=== PATIENT | female | born 1955 | race Caucasian/White ===

== ENCOUNTER → 2019-02-26 14:45 | Outpatient (CLI) | payer BC, SELFPAY ==
[2019-02-04 14:40] VITALS: BMI 47.9
--- NOTE | 2019-02-26 14:51 | ECHOD_ITS ---
Reason For Study: HTN Procedure This was a 2D Doppler, Color Flow transthoracic echocardiogram. The study was technically difficult. Exam performed in department. Left Ventricle Normal LV size. Left ventricular systolic function is normal. The estimated ejection fraction is 65 %. No evidence for diastolic dysfunction. No regional wall motion abnormalities noted. Right Ventricle Normal RV size. Normal systolic function. Atria The left atrium is mildly enlarged. Normal right atrium. No doppler evidence for ASD. Mitral Valve There is no mitral annular calcification. Normal mitral valve. Trivial mitral valve insufficiency. Tricuspid Valve Normal tricuspid valve. Trivial tricuspid valve insufficiency. Right ventricular systolic pressure estimated to be 30 mmHg. Aortic Valve Trisinus/trileaflet aortic valve. Normal aortic valve. Pulmonic Valve The pulmonic valve is not well visualized. Great Vessels The aortic root is not well visualized. Pericardium/Pleural No pericardial effusion. MMode/2D Measurements & Calculations LVIDd: 4.3 cm IVSd: 1.2 cm LA dimension: 3.8 cm LVIDs: 2.5 cm LVPWd: 1.0 cm RVDd: 3.8 cm FS: 41.9 % LAV(MOD-bp): 49.6 ml LA A4 area: 18.9 cm2 RA A4 area: 11.9 cm2 LAV(MOD-bp) Indexed: 22.0 ml/m2 LAV(MOD-sp2): 43.2 ml LAV(MOD-sp4): 49.2 ml Time Measurements MV dec time: 0.27 sec Doppler Measurements & Calculations MV E max shravan: 92.9 cm/sec Lat Peak E' Shravan: 9.6 cm/sec Med Peak E' Shravan: 7.0 cm/sec MV A max shravan: 121.3 cm/sec E/E' lat: 9.7 E/E' med: 13.3 MV E/A: 0.77 MV V2 max: 125.2 cm/sec MV P1/2t max shravan: 102.1 cm/sec Ao V2 max: 153.1 cm/sec MV max P.3 mmHg MV P1/2t: 93.3 msec Ao max P.4 mmHg MV V2 mean: 61.8 cm/sec MV dec slope: 320.5 cm/sec2 MV mean P.8 mmHg MVA(P1/2t): 2.4 cm2 MV V2 VTI: 43.3 cm LV V1 max: 137.9 cm/sec PA V2 max: 131.9 cm/sec TR max shravan: 259.5 cm/sec LV V1 max P.6 mmHg TR max P.9 mmHg Interpretation Summary The study was technically difficult. Left ventricular systolic function is normal. The estimated ejection fraction is 65 %. The left atrium is mildly enlarged. Trivial mitral valve insufficiency. Trivial tricuspid valve insufficiency. Right ventricular systolic pressure estimated to be 30 mmHg. No evidence for diastolic dysfunction. Ordering Physician: Amarjit Olivera Referring Physician: Amarjit Olivera Performed By: Freddy Salamanca RCS
== END ==
PROVIDERS: Referring Provider Internal Medicine Cardiovascular Disease; Visit Provider Internal Medicine Cardiovascular Disease
DX: I10 Essential (primary) hypertension (principal)
CPT/HCPCS: 93306

== ENCOUNTER → 2019-04-05 08:03 | Outpatient (CLI) | payer BC, SELFPAY ==
[2019-02-04 14:40] VITALS: BMI 47.9
[2019-04-05 09:53] LABS: AST(SGOT) 21 U/L (15-37); Alanine Aminotransfer ALT/SGPT 29 U/L (13-56); Albumin, Serum 3.4 g/dL (3.2-5.0); Alkaline Phosphatase 105 U/L (45-117); Anion Gap 4 (5-15); BUN 30 mg/dL (7-18); BUN/Creat Ratio 22.1 RATIO (10-20); Bilirubin, Direct 0.13 mg/dL (0.00-0.30); Calcium,Total 9.1 mg/dL (8.5-10.1); Chloride 110 mmol/L (98-107); Cholesterol 190 mg/dL (200); Creatinine, Serum 1.36 mg/dL (0.55-1.02); EST Glomerular Filtration Rate 42 mL/min (>60); Est Glom Filt Rate - Afr Amer 50 mL/min (>60); Globulin 4.1 g/dL (2.2-4.2); Glucose 108 mg/dL (74-106); High Density Lipoprotein 44 mg/dL; Protein, Total 7.5 g/dL (6.4-8.2); Sodium Level 143 mmol/L (136-145); T4 Total, Thyroxin 10.2 ug/dL (4.8-13.9); Thyroid Stim Hormone (TSH) 2.44 uIU/mL (0.358-3.74); Triglycerides 306 mg/dL; Very Low Density Lipoprotein 61 mg/dL (5-40)
== END ==
PROVIDERS: PCP Internal Medicine; Referring Provider Internal Medicine Cardiovascular Disease; Visit Provider Internal Medicine Cardiovascular Disease
DX: I10 Essential (primary) hypertension (principal); E78.00 Pure hypercholesterolemia, unspecified
CPT/HCPCS: 36415; 80048; 80061; 80076; 84436; 84443

== ENCOUNTER 2019-05-17 08:17 | Day surgery (SDC) | payer BC, SELFPAY ==
[2019-04-12 15:21] VITALS: BMI 47.9
[2019-05-06 13:58] VITALS: BMI 47.9
--- NOTE | 2019-05-17 08:37 | H&P.OPEN ---
History of Present Illness Date of Admission: 05/17/19 The patient is a 64 year old F presents for screening colonoscopy. Patient's never had a previous colonoscopy. Patient denies any family history of colon cancer. Patient denies any chronic abdominal pain/nausea/vomiting/reflux. Patient has bowel movements daily will occasionally have bleeding if she has an inflamed hemorrhoid. Past Medical/Surgical History - Planned Operation Planned Operative Procedure/s: cscope open access Date of Operative Procedure: 05/17/19 Permit Signed: No S.O.S: No Is This Patient Having a Total Joint: No - Previous Hospitalizations/Surgeries HX Hospitalizations: Yes - pneumonia HX of Surgeries: uterine ablation. gallbladder. tubal ligation Any Problems With Anesthesia: No You/Your Family Experience Fever (Hyperthermia) With Anes: No Cholinesterase deficiency: No - Cardiovascular Hx Chest Pain within Last 2 months: No Hx of Irregular Heartbeat and/or Afib: No - follows with whg/last visit 04/2019 Hx Heart Attack: No Hx Congestive Heart Failure: No Hx Rheumatic Fever: No Hx Hypertension: Yes - controlled with med Hx Internal Defibrillator: No Hx Pacemaker: No Hx Cardiac Catheterization: No Hx Cardiac Surgery/Stents/Etc.: No Hx Stress Test: No - echo 2019 HX Edema: Yes - lower legs Hx Pain in Legs when Walking/Leg Cramps: Yes - Respiratory Chronic Cough: No HX of Shortness of Breath: Yes - slightly sob with 2 flights of stairs Hoarseness: No Hx Chronic Obstructive Pulmonary Disease (COPD): No Hx Asthma: Yes - prn inhaler Hx Emphysema: No Hx Sleep Apnea: No Hx Oxygen Use at Home: No Hx Respiratory Tract Infection/Cold (presently): No Do You Snore Loudly (louder than talking or can be heard): Yes Do You Often Feel Tired/ Fatigued/ Sleepy Dring Daytime?: No Has Anyone Observed You Stop Breathing During Sleep?: No Result (for STOP score): Positive Hx Smoking: No Smoking Status: Never smoker - Gastrointestinal Hx Gastroesophageal Reflux: No - occ heartburn prn tums Hx Gastrointestinal Disorders: No Hx Gastrointestinal Bleed: No Hx Ulcer: No Hx Hiatal Hernia: No Difficulty Chewing/Swallowing: No Recent Onset of Swallowing Problems: No Special diet followed at home: No Hx Unplanned Weight Loss of 20#: No HX Unplanned Weight Gain of 20#: No - Neurological Hx Seizures: No HX Syncope/Blackout Spells/Unconsciousness: No Hx CVA/Stroke: No Hx Transient Ischemic Attacks (TIA): No Hx Multiple Sclerosis: No Hx Parkinson's Disease: No Hx Head/Neck Injury: No Hx Headaches: No Hx Back Injury/Pain: No Recent Onset of Speech Difficulty: No Restless Legs: No Does patient have nerve stimulator: No Patient instructed to have device shut off: No Rep notified?: No - Blood Disorder Hx Leukemia: No Bleeding Tendencies: No Hx Deep Vein Thrombosis: No Hx High Cholesterol: Yes - on med Blood Transmitted Disease: No Hx Hepatitis: No Hx Cirrhosis: No Hx Anemia: Yes - in the past Hx Blood Disorders: No - Reproduction : No Is Patient Lactating: No Hx Hysterectomy: No Hx Tubal Ligation: Yes Are You Post Menopause: Yes - Genitourinary Hx Renal Disease: No - Musculoskeletal Hx Arthritis: Yes Hx Rheumatoid Arthritis: No Hx Gout: No Recent Onset of an Orthopedic Problem: No - Endocrine Hx Diabetes: No Thyroid Disease: No Hx Steroid Therapy: No - Psycho/Social Hx Substance Use: No Hx Alcohol Use: No Hx Anxiety: No Hx Depression: No Mental Illness: No Hx Dementia: No - Miscellaneous Hx Cancer: No Recent Exposure to Contagious Disease: No Active MRSA: No Hx of C-Diff: No Any Loose Teeth: No Allergies Sulfa (Sulfonamide Antibiotics) Allergy (Unknown, Verified 05/17/19 08:40) Unknown - Discharge Is Pt Admitted From a Long Term, or a [place] [facility]: No Who Could Help: family After D/C, Where Do you Plan to Go: Return Home - From the PAT History Number of Risk Factors: 3 - Physical Exam Vitals/I&O's: Body Mass Index (BMI) 47.9 General: Alert, Oriented x3, Cooperative, No apparent distress HEENT: Atraumatic Lungs: Normal air movement Cardiovascular: Regular rate Abdomen: Soft, Non Tender, Non-Distended Extremities: No clubbing, No cyanosis Neurological: Cranial nerves II-XII grossly intact Psych/Mental Status: Normal Affect Assessment/Plan 64-year-old female for screening for colon cancer Surgery Risks - Colonoscopy I discussed with the patient the risks of the procedure: Yes Risks Include but are not Limited To: Risks include but are not limited to: Bleeding, perforation requiring further surgery, inability to complete colonoscopy requiring barium enema. Patient and her had no further questions this time.
[2019-05-17 08:40] VITALS: BP 128/67; PULSE 53; RESP 16; TEMP 36.4; O2SAT 99; BMI 47.6
[2019-05-17] MEDS: Lactated Ringers 1,000 ML 100 ML IV (08:55)
[2019-05-17 10:00] VITALS: BP 102/51; BP 128/67; PULSE 53; RESP 16; TEMP 36.2; O2SAT 94
--- NOTE | 2019-05-17 10:02 | OP.COLON_ITS ---
Patient Name: Anh Ewing Procedure Date: 05/17/2019 9:32 AM Date of : 1955 Age: 64 Procedure: Colonoscopy Indications: Screening for colorectal malignant neoplasm Providers: Xochitl Otto MD Referring MD: Madan Velásquez MD Medicines: Monitored Anesthesia Care Patient Profile: This is a 64 year old female. Last Colonoscopy: none. The patient's first colonoscopy is today. Complications: No immediate complications. Procedure: Pre-Anesthesia Assessment: - Prior to the procedure, a History and Physical was performed, and patient medications and allergies were reviewed. The patient's tolerance of previous anesthesia was also reviewed. The risks and benefits of the procedure and the sedation options and risks were discussed with the patient. All questions were answered, and informed consent was obtained. Prior Anticoagulants: The patient has taken no previous anticoagulant or antiplatelet agents. ASA Grade Assessment: III - A patient with severe systemic disease. After reviewing the risks and benefits, the patient was deemed in satisfactory condition to undergo the procedure. After I obtained informed consent, the scope was passed under direct vision. Throughout the procedure, the patient's blood pressure, pulse, and oxygen saturations were monitored continuously. The colonoscope was introduced through the anus and advanced to the cecum, identified by the appendiceal orifice, ileocecal valve and palpation. The colonoscopy was performed without difficulty. The patient tolerated the procedure well. The quality of the bowel preparation was good. Scope In: 9:43:19 AM Scope Withdrawal Time 0 hours 9 minutes 15 seconds Scope Out: 9:56:57 AM Total Procedure Duration Time 0 hours 13 minutes 38 seconds Findings: Hemorrhoids were found on perianal exam. External and internal hemorrhoids were found. The hemorrhoids were Grade I (internal hemorrhoids that do not prolapse). Many small and large-mouthed diverticula were found in the sigmoid colon. The exam was otherwise without abnormality. Impression: - Hemorrhoids found on perianal exam. - External and internal hemorrhoids. - Diverticulosis in the sigmoid colon. - The examination was otherwise normal. - No specimens collected. Recommendation: - Discharge patient to home. - High fiber diet. - Continue present medications. - Repeat colonoscopy in 10 years for screening purposes. Procedure Code(s): --- Professional --- G0121, PT, Colorectal cancer screening; colonoscopy on individual not meeting criteria for high risk Diagnosis Code(s): --- Professional --- Z12.11, Encounter for screening for malignant neoplasm of colon K64.0, First degree hemorrhoids K57.30, Diverticulosis of large intestine without perforation or abscess without bleeding CPT copyright 2017 [employer]. All rights reserved. The codes documented in this report are preliminary and upon data conversion operator review may be revised to meet current compliance requirements. MD Xochitl Ronquillo MD 05/17/2019 10:01:42 AM This report has been signed electronically. Number of Addenda: 0 Note Initiated On: 05/17/2019 9:32 AM
--- NOTE | 2019-05-17 10:02 | OP.CCLET_ITS ---
05/17/2019 Madan Velásquez MD [address] [place] [address] [place] [address] Re : Colonoscopy procedure for Anh Gildardo Dear Dr. Velásquez This procedure was performed on Friday, May 17, 2019. My impressions and recommendations are as follows: Impressions : - Hemorrhoids found on perianal exam. - External and internal hemorrhoids. - Diverticulosis in the sigmoid colon. - The examination was otherwise normal. - No specimens collected. Recommendations : - Discharge patient to home. - High fiber diet. - Continue present medications. - Repeat colonoscopy in 10 years for screening purposes. My findings are described in the full procedure note, which is enclosed. If I can be of further assistance, please feel free to contact me at Doctor phone number(s): , Work: . Sincerely, MD Xochitl Ronquillo MD 05/17/2019 10:01:42 AM This report has been signed electronically.
[2019-05-17 10:05] VITALS: BP 114/57; BP 128/67; PULSE 51; RESP 16; O2SAT 100
[2019-05-17 10:10] VITALS: BP 127/67; BP 128/67; PULSE 50; RESP 16; O2SAT 100
[2019-05-17 10:15] VITALS: BP 128/67; BP 130/78; PULSE 53; RESP 16; TEMP 36.2; O2SAT 99
[2019-05-17 10:34] VITALS: BP 128/67
== END 2019-05-17 10:44 | disposition home or self-care (01) ==
LOC: EN 08:18 → AC 08:19
PROVIDERS: PCP Internal Medicine; Referring Provider Internal Medicine; Visit Provider Surgery
PROC: 0DJD8ZZ Inspection of Lower Intestinal Tract, Via Natural or Artificial Opening Endoscopic (ICD-10-PCS; CPT 45378; principal; 2019-05-17 09:25)
DX: Z12.11 Encounter for screening for malignant neoplasm of colon (principal); K57.30 Diverticulosis of large intestine without perforation or abscess without bleeding; K64.0 First degree hemorrhoids; K64.4 Residual hemorrhoidal skin tags; I10 Essential (primary) hypertension; E78.00 Pure hypercholesterolemia, unspecified; J45.909 Unspecified asthma, uncomplicated; Z78.0 Asymptomatic menopausal state; Z88.2 Allergy status to sulfonamides; Z79.899 Other long term (current) drug therapy
CPT/HCPCS: 45378; J7120

== ENCOUNTER → 2019-06-16 10:51 | Outpatient (CLI) | payer BC, SELFPAY ==
[2019-06-04 09:36] VITALS: BMI 47.6
--- NOTE | 2019-06-16 10:53 | RAD_ITS ---
STUDY: X-RAY - RIGHT ANKLE REASON FOR EXAM: Female, 64 years old. ANKLE PAIN AND SWELLING, NO INJURY TECHNIQUE: 3 view(s) of the ankle. COMPARISON: None. FINDINGS: Normal visualized distal tibia and fibula. Questionable tiny avulsion at the tip of the lateral malleolus. Findings suggestive of an old avulsion of the medial malleolus. Normal tibiotalar articulation and ankle mortise. Calcaneal spurs. The visualized subtalar, talonavicular, calcaneocuboid and tarsal articulations are normal. Diffuse soft tissue swelling. RAD/Ankle min 3 Views IMPRESSION: Diffuse soft tissue swelling. Questionable tiny avulsion fracture of the lateral malleolus. Old avulsion of the medial malleolus. Electronically Signed: Bebo Rivas, at 14:11 EDT , Service support ,
== END ==
PROVIDERS: PCP Internal Medicine; Referring Provider Nurse Practitioner Family; Visit Provider Nurse Practitioner Family
DX: M25.571 Pain in right ankle and joints of right foot (principal)
CPT/HCPCS: 73610

== ENCOUNTER → 2019-08-30 07:23 | Outpatient (CLI) | payer BC, SELFPAY ==
[2019-07-12 08:34] VITALS: BMI 48.9
[2019-08-30 07:53] LABS: Anion Gap 5 (5-15); BUN 21 mg/dL (7-18); BUN/Creat Ratio 19.6 RATIO (10-20); Calcium,Total 9.2 mg/dL (8.5-10.1); Chloride 111 mmol/L (98-107); Creatinine, Serum 1.07 mg/dL (0.55-1.02); EST Glomerular Filtration Rate 55 mL/min (>60); Est Glom Filt Rate - Afr Amer 66 mL/min (>60); Glucose 118 mg/dL (74-106); Potassium 4.3 mmol/L (3.5-5.1); Sodium Level 141 mmol/L (136-145)
[2019-08-30 07:59] LABS: Hemoglobin A1c 5.8 % (3.8-5.6)
[2019-08-30 08:56] LABS: Vitamin D,25 Hydroxy 18.8 ng/mL
== END ==
PROVIDERS: PCP Internal Medicine; Referring Provider Podiatrist; Visit Provider Podiatrist
DX: I10 Essential (primary) hypertension (principal); R73.03 Prediabetes; E55.9 Vitamin D deficiency, unspecified
CPT/HCPCS: 36415; 80048; 82306; 83036

== ENCOUNTER → 2019-11-01 | Outpatient (CLI) | payer BC, SELFPAY ==
[2019-11-01 10:08] VITALS: BMI 48.9
[2019-11-05 13:57] LABS: HPV APTIMA, High Risk Negative (Negative)
== END | disposition home or self-care (01) ==
LOC: LABSPEC 14:10
PROVIDERS: PCP Internal Medicine; Referring Provider Obstetrics & Gynecology; Visit Provider Obstetrics & Gynecology
DX: Z12.4 Encounter for screening for malignant neoplasm of cervix (principal)
CPT/HCPCS: 87624; 88175; G0145

== ENCOUNTER → 2019-12-22 11:49 | Outpatient (CLI) | payer BC, SELFPAY ==
[2019-07-12 08:34] VITALS: BMI 48.9
[2019-12-20 08:21] VITALS: BMI 48.9
--- NOTE | 2019-12-22 11:53 | MRI_ITS ---
STUDY: MRI RIGHT MIDFOOT REASON FOR EXAM: Female, 64 years old. 4th metatarsal fx, cuboid TECHNIQUE: Standardized fat and water weighted pulse sequences were obtained in all 3 orthogonal planes. COMPARISON: None. FINDINGS: Normal talonavicular articulation. Normal calcaneocuboid articulation. Normal navicular-cuneiform articulations. Normal intercuneiform articulations. Normal first tarsometatarsal articulation. Normal Lisfranc ligament. Moderate second tarsometatarsal joint arthrosis with erosions. Normal cuboid fourth and cuboid fifth tarsometatarsal articulation. Nondisplaced oblique fracture of the base of the fourth metatarsal bone extending into the tarsometatarsal joint with surrounding severe contusion into the proximal shaft. Microtrabecular infraction of the base of the third metatarsal bone with surrounding severe contusion. Normal tibialis anterior tendon. Normal extensor hallucis longus tendon. Normal extensor digitorum longus tendons. Normal peroneus longus tendon and distal insertion. Normal peroneus brevis tendon and distal insertion. Normal intrinsic muscles of the mid and forefoot region. Normal extensor digitorum brevis muscle. There is diffuse edema of the subcutaneous adipose space of the dorsal midfoot region. MRI/Lower Ext/No Jt/w/o IMPRESSION: Nondisplaced fracture the base of the fourth metatarsal bone and microtrabecular infraction of the base of the third metatarsal bone. Electronically Signed: Todd Herman MD at 17:04 EDT Tel , Service support ,
--- NOTE | 2019-12-22 11:53 | MRI_ITS ---
STUDY: MRI RIGHT ANKLE WITHOUT CONTRAST REASON FOR EXAM: Female, 64 years old. ankle ligament injury TECHNIQUE: Standardized fat and water weighted pulse sequences were obtained in all 3 orthogonal planes. COMPARISON: X-ray dated 06/16/2019. FINDINGS: Peroneus brevis split tear (axial images 19 through 21 series 9). Mild peroneus longus/brevis tenosynovitis. Mild posterior tibialis and flexor tenosynovitis with fluid at the master knot of [place] (axial image 25 series 9). Normal extensor tendons. Mild soft tissue swelling at the ankle. No solid, cystic or lipomatous soft tissue lesions. Small volume tibiotalar/subtalar joint effusion. Mild tibiotalar joint arthrosis. Mild subtalar joint arthrosis. Normal calcaneocuboid joint. Mild talonavicular arthrosis. Mild navicular cuneiform joint arthrosis. Moderate tarsal metatarsal joint arthrosis. Scattered areas of reactive bone marrow edema/contusion involving the distal fibula, distal tibia, talus, calcaneus, cuboid, medial cuneiform and metatarsal bases. No acute fracture line. No acute dislocation. Os trigonum. Plantar spur. Plantar fascial thickening. Minimal Achilles tendinosis. Chronic syndesmotic ligament thickening. Chronic anterior and posterior talofibular ligament thickening. Normal sinus Tarsi/subtalar ligaments. Chronic deltoid ligament sprain. MRI/Lower Ext Joint Only (Routine) IMPRESSION: Peroneus brevis split tear with peroneus longus/brevis tenosynovitis Mild PTT and flexor tenosynovitis Multiregional bone contusion/edema (consider neuropathy) Chronic syndesmotic, lateral ligament and deltoid ligament sprains Plantar spur with chronic plantar fascial thickening and minimal Achilles tendinosis Moderate osteoarthritic features Soft tissue swelling with small joint effusion Electronically Signed: Giovany Thompson DO at 14:10 EDT Tel , Service support ,
== END ==
PROVIDERS: PCP Internal Medicine; Referring Provider Podiatrist; Visit Provider Podiatrist
DX: M84.374A Stress fracture, right foot, initial encounter for fracture (principal); S82.891A Other fracture of right lower leg, initial encounter for closed fracture; X58.XXXA Exposure to other specified factors, initial encounter; Y93.9 Activity, unspecified; Y92.9 Unspecified place or not applicable; Y99.9 Unspecified external cause status
CPT/HCPCS: 73718; 73721

== ENCOUNTER 2019-12-28 21:38 | Emergency (ER) | payer BC, SELFPAY ==
[2019-12-20 08:21] VITALS: BMI 48.9
[2019-12-28 21:39] VITALS: BP 199/109; PULSE 54; RESP 16; TEMP 35.7; O2SAT 99; BMI 48.0
[2019-12-28] MEDS: oxyCODONE 5 MG Tablet PO (22:18)
--- NOTE | 2019-12-28 22:28 | RAD_ITS ---
STUDY: X-RAY - LEFT KNEE REASON FOR EXAM: Female, 64 years old. PAIN MEDIAL SIDE OF KNEE AT LEVEL OF KNEE JOINT. TOO PAINFUL TO STAND/WALK. NO KNOWN INJURY TECHNIQUE: 4 view(s) of the knee. COMPARISON: None. FINDINGS: Normal visualized distal femur. Normal visualized proximal tibia and fibula. Normal proximal tibiofibular articulation. There is no demonstrated fracture. There is moderate degenerative arthrosis of the medial femorotibial compartment with moderate joint space narrowing. There is mild degenerative arthrosis of the lateral femorotibial compartment. There is moderate degenerative arthrosis of the patellofemoral articulation. The soft tissue structures are unremarkable. RAD/Knee 4 or More Views IMPRESSION: Degenerative arthrosis. Electronically Signed: Edwin Chamberlain MD at 22:56 EDT , Service support ,
--- NOTE | 2019-12-28 23:32 | ED.VIS.GEN ---
History of Present Illness Chief Complaint: Lower Extremity Injury Informant: Patient Narrative: 64-year-old female with past medical history of hypertension and CKD presents with concern for left knee pain. States it developed yesterday evening. States it is aching in nature. No trauma. States it is worse with movement. Denies any numbness or tingling. Past Medical History - Allergies and Home Meds Allergies/Adverse Reactions: Allergies Sulfa (Sulfonamide Antibiotics) Allergy (Unknown, Verified 12/28/19 21:43) Unknown Primary Care Physician: Madan Velásquez MD [Primary Care Provider] - Prior records reviewed: Yes Past Medical History: - - HTN and CKD Lives: Spouse/ Significant Other Smoking Status: Never smoker Alcohol: None Drugs: None Review of Systems General: Denies: Chills, Fever, Sweats Eyes: Denies: Visual changes - bilaterally, Diplopia ENT: Denies: Rhinorrhea, Sore throat Cardiovascular: Denies: Chest pain, Palpitations Respiratory: Denies: Dyspnea, Cough, Dyspnea on exertion Gastrointestinal: Denies: Abdominal pain, Nausea, Vomiting, Diarrhea, Melena, Hematochezia Genitourinary: Denies: Dysuria, Hematuria, Frequency Musculoskeletal: Reports: Arthralgias. Denies: Back pain, Extremity Pain Skin: Denies: Rash, Wounds Neurological: Denies: Headache, Weakness, Numbness Physical Exam Vital Signs/Narrative: Vital Signs Temp Pulse Resp BP Pulse Ox 12/28/19 21:39 96.3 F L 54 L 16 199/109 H 99 Inital Vital Signs reviewed: Yes General: Well nourished, Well developed, No Acute Distress Head: Normocephalic, Atraumatic Eyes: Perrl, EOMI ENT: Moist mucous membranes, No rhinorrhea Neck: Supple, Nontender Cardiovascular: Regular rate, Regular rhythm, No murmurs Respiratory: No distress, CTA bilaterally, Chest nontender Abdomen: Soft, Nontender, Nondistended, Normal bowel sounds Back: Nontender, Normal Inspection Extremities: No edema, - - Tenderness to palpation along the medial joint line of the left knee. No tenderness in the calf. Strong and palpable pulses. Sensation intact. Skin: Normal color, No rash Neurological: Alert, Oriented x3, Cranial nerves II-XII grossly intact, Normal Strength, Normal Sensation Psychological: Normal affect, Normal Mood Diagnostic/Tx/Re-eval Clinical Impression(s) from Imaging Studies Knee X-Ray 12/28/19 22:28 IMPRESSION: Degenerative arthrosis. Electronically Signed: Edwin Chamberlain MD at 22:56 EDT , Service support , - Medical Decision Making Appears well nontoxic. Vital signs within normal limits. X-ray shows significant arthritis. Scottie wrap will be placed. Patient was given single oxycodone. Will be advised on rest, ice, compression, elevation. Advised on Tylenol. Will be given orthopedic follow-up. Advised on weight reduction and physical therapy. Asked to return for new or worsening symptoms. Discharged home in stable condition. 1. Left knee pain 2. Left knee arthritis ED Disposition - Plan for ED Patient: Disposition: Home or Assisted Living Instructions: ED Knee Pain [facility] Referrals: Madan Velásquez MD [Primary Care Provider] - 2 Days Brian Dickerson DO [STAFF PHYSICIAN] - 5-7 Days
[2019-12-29] VITALS: RESP 16
== END 2019-12-29 00:11 | disposition home or self-care (01) ==
PROVIDERS: Emergency Provider Emergency Medicine; PCP Internal Medicine
DX: M17.12 Unilateral primary osteoarthritis, left knee (principal); I12.9 Hypertensive chronic kidney disease with stage 1 through stage 4 chronic kidney disease, or unspecified chronic kidney disease; N18.9 Chronic kidney disease, unspecified; Z79.899 Other long term (current) drug therapy
CPT/HCPCS: 73564; 99281

== ENCOUNTER → 2020-01-25 17:02 | Outpatient (CLI) | payer MEDICARE, BC, SELFPAY ==
[2020-01-03 14:29] VITALS: BMI 48.7
[2020-01-25 08:29] LABS: ALB/GLOB Ratio 0.9 RATIO (0.9-2.4); AST(SGOT) 19 U/L (15-37); Alanine Aminotransfer ALT/SGPT 24 U/L (13-56); Albumin, Serum 3.5 g/dL (3.2-5.0); Alkaline Phosphatase 102 U/L (45-117); Anion Gap 7 (5-15); BUN 29 mg/dL (7-18); BUN/Creat Ratio 23.2 RATIO (10-20); Calcium,Total 9.1 mg/dL (8.5-10.1); Chloride 109 mmol/L (98-107); Creatinine, Serum 1.25 mg/dL (0.55-1.02); EST Glomerular Filtration Rate 46 mL/min (>60); Est Glom Filt Rate - Afr Amer 55 mL/min (>60); Globulin 3.9 g/dL (2.2-4.2); Glucose 104 mg/dL (74-106); Potassium 4.2 mmol/L (3.5-5.1); Protein, Total 7.4 g/dL (6.4-8.2); Sodium Level 141 mmol/L (136-145); Vitamin D,25 Hydroxy 33.8 ng/mL
[2020-01-25 08:45] LABS: Absolute Lymphocyte Count 3.52 X10^3/uL (0.83-4.51); Absolute Neutrophil Count 2.9 X10^3/uL (2.0-7.7); Basophil# 0.04 X10^3/uL; Basophil% 0.6 % (0-1); Eosinophil# 0.09 X10^3/uL; Eosinophils% 1.3 % (0-5); Hematocrit 39.7 % (37-47); Hemoglobin 12.6 g/dL (12.0-15.0); Lymphocyte # 3.52 X10^3/ul (4.0); Lymphocyte % 49.7 % (19-41); Mean Corp Hgb Conc 31.7 g/dL (32-36); Mean Corpuscular Hgb 28.9 pg (27.0-32.0); Mean Corpuscular Volume 91.1 fL (81-99); Mean Platelet Vol. 9.8 fl (6.2-12.0); Monocyte# 0.52 X10^3/uL; Monocyte% 7.3 % (0-10); NRBC Flagged by Analyzer 0 % (0-5); Neutrophil # 2.88 X10^3/uL (2.7-7.7); Neutrophil % 40.7 % (47-70); Platelet Count 235 K/mm3 (150-450); RBC Distribution Width CV 13.9 % (11.6-14.6); RBC Distribution Width SD 46.6 fl (35.1-43.9); Red Blood Count 4.36 M/mm3 (4.2-5.4); White Blood Count 7.1 K/mm3 (4.4-11.0)
--- NOTE | 2020-01-25 17:08 | MRI_ITS ---
STUDY: MRI LEFT MIDFOOT REASON FOR EXAM: Medial left foot pain, osteoarthritis, evaluate for third metatarsal stress fracture. TECHNIQUE: Standardized fat and water weighted pulse sequences were obtained in all 3 orthogonal planes. COMPARISON: None. FINDINGS: There is tibiotalar arthrosis with anterior osteophytes, chondral thinning of the visualized anterior aspect of the articulation, and subchondral bone edema (inversion recovery sagittal images 9-16), with small osteochondral lesions of the visualized talar dome (T1 sagittal images 10, 16). Normal talonavicular articulation. There is mild arthrosis of the calcaneocuboid articulation with mild chondral thinning and mild subchondral bone edema/cystic change (inversion recovery sagittal images 13-16). Normal navicular-cuneiform articulations. Normal intercuneiform articulations. Normal first tarsometatarsal articulation. Normal Lisfranc ligament. There is arthrosis of the second and third tarsometatarsal articulations with chondral thinning and subchondral cystic change (inversion recovery sagittal images 13-17). Normal cuboid fourth and cuboid fifth tarsometatarsal articulation. There is no stress fracture of the metatarsals. There is arthrosis of the first metatarsophalangeal joint with marginal osteophytes and chondral thinning (T2 series 6 image 13). There is arthrosis of the first metatarsal-sesamoids articulations with marginal osteophytes, chondral thinning and subchondral bone edema/cystic change (inversion recovery sagittal images 5-7). Normal tibialis anterior tendon. Normal extensor hallucis longus tendon. Normal extensor digitorum longus tendons. Normal intrinsic muscles of the mid and forefoot region. Normal extensor digitorum brevis muscle. There is edema in the dorsal subcutis adipose space of the ankle and midfoot, and dorsal to the first metatarsophalangeal articulation. MRI/Lower Ext/No Jt/w/o IMPRESSION: Arthrosis of the tibiotalar, calcaneocuboid, second and third tarsometatarsal articulations, first metatarsophalangeal joint and first metatarsal-sesamoids articulations. No demonstrated third metatarsal stress fracture. Electronically Signed: Oskar Green MD at 8:04 EST Tel , Service support ,
== END ==
PROVIDERS: PCP Internal Medicine; Referring Provider Podiatrist; Visit Provider Podiatrist
DX: M84.342A Stress fracture, left hand, initial encounter for fracture (principal); E55.9 Vitamin D deficiency, unspecified
CPT/HCPCS: 36415; 73718; 80053; 82306; 85025

== ENCOUNTER 2020-02-21 15:30 | Outpatient (RCR) | payer BC, MEDICARE, SELFPAY ==
[2020-01-03 14:29] VITALS: BMI 48.7
--- NOTE | 2020-01-11 14:52 | HP.PTEVAL_ITS ---
Patient's Visit Information CARISSA FERNÁNDEZ is a 64 year old F referred to Physical Therapy by Dr. Brian Dickerson DO with a diagnosis of OA L KNEE. Date of Evaluation: 01/11/20 Physical Therapist: ALEXANDER KabaT, OCS, CSCS - Visit Plan Frequency: 2-3x /Week Duration: 4-6 Weeks Plan: 2-3x/week x 10 visits for water therapy to work on: quad and HS stretch B LE. ankles and knee ROM. LE strength, core adn UE strength ex to be taught for I when appropriate. - Subjective Don't walk well. Not steady adn my left knee hurts. 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 R foot swelled when she got home and got painful. Doctor prescribed tylenol and ice due to covid and could not walk 10 steps. Had x rays and had stress fracture in R foot adn torn tendon. Went to foot doctor who did MRI and ended up in boot cast which she work June through August. Still hurt in August. L foot hurts to at times. Has O in both feet at ankle. A month ago woke up with L knee pain. Had x ray at ER and has OA, sent to [facility]. Gave injection in knee which helped her be able to walk the halls in this office as she could not have done that 3 weeks ago. Will have MRI on R foot. No falls, uses cane much of time since injection. It was really hard to walk before injection due to knee pain. No neuropathy, no DM. No spinning dizzyness. Up at night sometimes with foot pain. Soemtimes they feel hot. 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 Commuting effort is a problem. [place]. Enjoys travelling adn doesn't feel like she can do that effectively. [place]. Basic ADLs: getting done now but challenging prior to injection. Has steps but can avoid them and does. - Pain L knee Pain Intensity (Out of 10): 1 Pain Intensity Range: 0, 10 Comment: stiff and uncomfy today B feet Pain Intensity (Out of 10): 2 Pain Intensity Range: 0, 4 - Objective 200 foot wak back to therapy with cane leaves SOB and tired but safe. Transferred chair I. Antalgic L with and without cane. L knee AROM 0-105 and pain end extension and flexion, R knee 0-118. Ankle aROM WFL but DF limited to 0 degrees B. B LE swollen and avoids push off at times on gait. reflexes 1/3 patella and achilles. Seensation LE WNL to gross light touch. UE AROM WFL and strength 4-/5. LE strength hip abd ext 3+, flexion 3+, knee ext 3 on L and 4 on R, knee flexion 4- B. ankles strength 4 in all directions without increased discomfort. - Balance Scores Functional Gait Assessment Score: 23 % Disability: 23.3400 - Goals Goal 1:: Pain diminished by 75% to 1/10 at worst ad manageable Goal Time Frame: 4-6 Weeks Goal 2:: I approp Pool ex to limit future problems Goal Time Frame: 4-6 Weeks Goal 3:: LEFS score 50/80 to improve mobility. Goal Time Frame: 4-6 Weeks - Rehabilitation Potential Physical Therapy Diagnosis: OA L knee Rehabilitation Potential: Good - Anticipated Interventions Patient/Client Instruction: Educate patient on: Condition, Plan of Care For the Purpose of:: To decrease pain, To increase ROM, To improve muscle performance and motor function, To increase tolerance to activity /condition/position Therapeutic Exercise to Include: Strength training, Flexibilty training, Gait and locomotor training, In an aquatic setting, Passive ROM, Active ROM For the Purpose of:: To decrease pain, To increase ROM, To improve muscle performance and motor function, To improve ability of physical actions for home/community/work/leisure, To improve gait and locomotor functions Thank you for the opportunity to evaluate your patient. For Medicare and Medicare HMO plans, please review the plan of care and approve it. It will need to be FAXED BACK to us at [phone] for Medicare purposes. For Medicare only, by signing this I certify the plan of care. Please let me know if there are questions or concerns regarding this plan of care. Physician Signature: Date:
--- NOTE | 2020-02-21 16:01 | HP.PTDCSUM_ITS ---
It has been my pleasure to treat CARISSA FERNÁNDEZ referred by Dr. Brian Dickerson DO, with the diagnosis of OA L KNEE for a total of 13 visit(s). Discharge Date: 02/21/20 Please see the following information for a summary of their discharge status. Subjective: A lot better. No longer need cane. I have done pool exercises regularly. Had injection just prior to eval. Knee not hurting much. Ankes still hurt and had an MRI, has torn tendon in R ankle that does not hurt. L still has tightness and OA. Has been told that she will always have some pain over there. No plans to f/u with knee Dr. Vargas. No f/u with foot doctor unless pain increases. Sleeping well. Basic ADLs are going well. Does stairs at home to laptop well. Activities are all getting done at home. 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 Uses cane in [place] for funerals. Does home exercises given to her by pool therapist to stretch LE and gently strengthen. [facility] to [facility] [employer] and continue in [facility] aerobics [facility]. Will call [facility] to find this out. No knee pain over weekend but might catch every now and then, worse in am is more stiff. L knee Pain Intensity (Out of 10): 0 B feet Pain Intensity (Out of 10): 1 % Improvement: 75 Objective/Function: Walks withotu antalgia today. steps reciprocally but needs UE pull, can do this ascending without pain but descending is weak. 0-118 AROM L knee. Ankles stiff in PF L vs R. Goal 1:: Pain diminished by 75% to 1/10 at worst ad manageable Goal Progress: Goal Met Goal 2:: I approp Pool ex to limit future problems Goal Progress: Goal Met Goal 3:: LEFS score 50/80 to improve mobility. Goal Progress: Progressing Plan: d/c to home ex adn community pool If there are questions or concerns regarding this patient's physical therapy, please feel free to call me at [phone]. Thank you for the referral of this patient. Sincerely, Giovany Martínez, DPT, OCS, CSCS
== END 2020-02-21 19:00 | disposition home or self-care (01) ==
LOC: PT 15:30
PROVIDERS: PCP Internal Medicine; Referring Provider Orthopaedic Surgery; Visit Provider Orthopaedic Surgery
DX: M17.12 Unilateral primary osteoarthritis, left knee (principal)
CPT/HCPCS: 97113; 97162; 97164

== ENCOUNTER 2020-05-18 14:55 | Outpatient (RCR) | payer MEDICARE, SELFPAY ==
[2020-05-01 14:28] VITALS: BMI 49.9
[2020-05-18] MEDS: COVID-19 VACC, MRNA(PFIZER)/PF 30 MCG/0.3 ML SYRINGE IM (11:15)
[2020-06-08] MEDS: COVID-19 VACC, MRNA(PFIZER)/PF 30 MCG/0.3 ML SYRINGE IM (10:56)
== END 2020-05-18 23:59 ==
LOC: IMMUN 14:55
PROVIDERS: PCP Internal Medicine; Visit Provider Family Medicine
DX: Z23 Encounter for immunization (principal)
CPT/HCPCS: 0001A; 0002A

== ENCOUNTER → 2020-07-25 08:58 | Outpatient (CLI) | payer MEDICARE, SELFPAY ==
[2020-07-25 08:07] VITALS: BMI 48.7
[2020-07-25 09:01] LABS: Bacteria 0 SEEN /hpf (None Seen); Mucous, Urine 0 SEEN /hpf (<or=2+); Red Blood Cells-Urine 0 SEEN /hpf (0-5); White Blood Cells 0 SEEN /hpf (0-5)
[2020-07-25 12:22] LABS: Absolute Lymphocyte Count 2.98 X10^3/uL (0.83-4.51); Absolute Neutrophil Count 3.1 X10^3/uL (2.0-7.7); Basophil# 0.06 X10^3/uL; Basophil% 0.9 % (0-1); Eosinophils% 1.5 % (0-5); Hematocrit 42.5 % (37-47); Hemoglobin 13.4 g/dL (12.0-15.0); Lymphocyte # 2.98 X10^3/ul (0.83-4.51); Lymphocyte % 43.3 % (19-41); Mean Corp Hgb Conc 31.5 g/dL (32-36); Mean Corpuscular Hgb 29.3 pg (27.0-32.0); Mean Platelet Vol. 9.7 fl (6.2-12.0); Monocyte# 0.63 X10^3/uL; Monocyte% 9.1 % (0-10); NRBC Flagged by Analyzer 0 % (0-5); Neutrophil % 44.9 % (47-70); Platelet Count 255 K/mm3 (150-450); RBC Distribution Width CV 14.4 % (11.6-14.6); Red Blood Count 4.57 M/mm3 (4.2-5.4); White Blood Count 6.9 K/mm3 (4.4-11.0)
[2020-07-25 12:35] LABS: Anion Gap 4 (5-15); BUN 20 mg/dL (7-18); Calcium,Total 9.3 mg/dL (8.5-10.1); Chloride 108 mmol/L (98-107); Creatinine, Serum 1.05 mg/dL (0.55-1.02); EST Glomerular Filtration Rate 56 mL/min (>60); Est Glom Filt Rate - Afr Amer 68 mL/min (>60); Glucose 100 mg/dL (74-106); Potassium 4.2 mmol/L (3.5-5.1); Sodium Level 142 mmol/L (136-145)
[2020-07-25 12:45] LABS: Color, Urine Yellow (Yellow); Glucose, Dipstick Normal (Normal); Ketone-Dipstick 5 mg/dl (Negative); Leukocyte Esterase-Dipstick Negative /ul (Negative); Nitrite-Dipstick Negative (Negative); Occult Blood-Urine Negative /ul (Negative); Protein-Dipstick 15 mg/dl (Negative); Urine Bilirubin Dipstick Negative (Negative); Urine Clarity Sl. Cloudy (Clear); Urine Urobilinogen Normal (Normal)
[2020-07-25 12:51] LABS: Squamous Epithelial Cells - UA 0-5 SEEN /hpf (5-10)
== END ==
PROVIDERS: PCP Internal Medicine; Referring Provider Physician Assistant; Visit Provider Physician Assistant
DX: I12.9 Hypertensive chronic kidney disease with stage 1 through stage 4 chronic kidney disease, or unspecified chronic kidney disease (principal); N18.30 Chronic kidney disease, stage 3 unspecified; R35.0 Frequency of micturition
CPT/HCPCS: 36415; 80048; 81001; 85025

== ENCOUNTER → 2021-01-31 11:04 | Outpatient (CLI) | payer MEDICARE, SELFPAY ==
[2021-01-31 12:34] LABS: Absolute Lymphocyte Count 2.96 X10^3/uL (0.83-4.51); Basophil# 0.06 X10^3/uL; Basophil% 0.8 % (0-1); Eosinophil# 0.08 X10^3/uL; Hemoglobin 13.6 g/dL (12.0-15.0); Lymphocyte # 2.96 X10^3/ul (0.83-4.51); Lymphocyte % 37.9 % (19-41); Mean Corp Hgb Conc 32.4 g/dL (32-36); Mean Corpuscular Hgb 30.2 pg (27.0-32.0); Mean Corpuscular Volume 93.3 fL (81-99); Mean Platelet Vol. 9.5 fl (6.2-12.0); Monocyte# 0.72 X10^3/uL; Monocyte% 9.2 % (0-10); NRBC Flagged by Analyzer 0 % (0-5); Neutrophil # 3.95 X10^3/uL (2.7-7.7); Neutrophil % 50.7 % (47-70); Platelet Count 260 K/mm3 (150-450); RBC Distribution Width CV 13.4 % (11.6-14.6); RBC Distribution Width SD 46.1 fl (35.1-43.9); White Blood Count 7.8 K/mm3 (4.4-11.0)
[2021-01-31 12:58] LABS: ALB/GLOB Ratio 0.7 RATIO (0.9-2.4); AST(SGOT) 17 U/L (15-37); Alanine Aminotransfer ALT/SGPT 25 U/L (13-56); Albumin, Serum 3.4 g/dL (3.2-5.0); Alkaline Phosphatase 105 U/L (45-117); Anion Gap 4 (5-15); BUN 26 mg/dL (7-18); BUN/Creat Ratio 23.2 RATIO (10-20); Calcium,Total 9.4 mg/dL (8.5-10.1); Chloride 108 mmol/L (98-107); Cholesterol 160 mg/dL (200); Creatinine, Serum 1.12 mg/dL (0.55-1.02); EST Glomerular Filtration Rate 52 mL/min (>60); Est Glom Filt Rate - Afr Amer 63 mL/min (>60); Globulin 4.6 g/dL (2.2-4.2); Glucose 102 mg/dL (74-106); High Density Lipoprotein 39 mg/dL; Potassium 4.2 mmol/L (3.5-5.1); Sodium Level 141 mmol/L (136-145); Triglycerides 220 mg/dL
[2021-01-31 12:59] LABS: Very Low Density Lipoprotein 44 mg/dL (5-40)
== END ==
PROVIDERS: PCP Internal Medicine; Referring Provider Internal Medicine; Visit Provider Internal Medicine
DX: I10 Essential (primary) hypertension (principal); E78.2 Mixed hyperlipidemia
CPT/HCPCS: 36415; 80053; 80061; 85025

== ENCOUNTER 2021-06-20 10:58 | Outpatient (CLI) | payer MEDICARE, SELFPAY ==
--- NOTE | 2021-06-20 11:02 | BD_ITS ---
STUDY: DUAL ENERGY X-RAY ABSORPTIOMETRY / DXA REASON FOR EXAM: Female, 66 years old. Screening for osteoporosis TECHNIQUE: Bone Mineral Density (BMD) measurements of lumbar spine and bilateral hips were obtained. COMPARISON: None. FINDINGS: Lumbar Spine (L1-L4): g/cm2 (0.946) / T-score (-0.9) / Z-score (0.9) Findings are suggestive of normal bone density with a low fracture risk. Left Femur Total: g/cm2 (0.960) / T-score (0.1) / Z-score (1.4) Left Femoral Neck: g/cm2 (0.694) / T-score (-1.4) / Z-score (0.2) Right Femur Total: g/cm2 (1.003) / T-score (0.5) / Z-score (1.8) Right Femoral Neck: g/cm2 (0.767) / T-score (-0.7) / Z-score (0.9) BD/Dexa Bone Density Study IMPRESSION: The patient is considered osteopenic as outlined below according to World Nish Organization (WHO) criteria with a low fracture risk. Reference Information: The T-score is the number of standard deviations above or below the standard which is normal for young adults at their peak bone mineral density. The World Health Organization (WHO) interprets the T-scores as follows: Above -1 Normal bone density Between -1 and -2.5 Osteopenia Equal to / or below -2.5 Osteoporosis As a practical clinical guideline, osteopenia may be graded as follows: Mild -1 through -1.5 Moderate -1.6 through -2.0 Severe -2.1 through -2.4 The Z-score is the number of standard deviations above or below age-matched controls. A Z-score of less than -1.5 would be considered abnormal. References: 1. NIH Osteoporosis and Related Bone Diseases www osteo.org 2. International Society for Clinical Densitometry www iscd.org 3. National Osteoporosis Foundation www nof.org Electronically Signed: Bebo Rivas MD at 12:48 EDT ,
== END 2021-06-20 23:59 | disposition home or self-care (01) ==
LOC: OPBD 10:59
PROVIDERS: PCP Internal Medicine; Visit Provider Physician Assistant
DX: Z78.0 Asymptomatic menopausal state (principal)
CPT/HCPCS: 77080

== ENCOUNTER 2021-06-27 10:12 | Outpatient (CLI) | payer MEDICARE, SELFPAY ==
[2021-06-27 12:30] LABS: Erythrocyte Sedimentation Rate 55 mm/hr (0-30)
[2021-06-27 12:33] LABS: Absolute Lymphocyte Count 2.99 X10^3/uL (0.83-4.51); Absolute Neutrophil Count 4.6 X10^3/uL (2.0-7.7); Basophil# 0.06 X10^3/uL; Basophil% 0.7 % (0-1); Eosinophil# 0.06 X10^3/uL; Eosinophils% 0.7 % (0-5); Lymphocyte # 2.99 X10^3/ul (0.83-4.51); Mean Corp Hgb Conc 32.6 g/dL (32-36); Mean Corpuscular Hgb 29.4 pg (27.0-32.0); Mean Corpuscular Volume 90.3 fL (81-99); Mean Platelet Vol. 9.6 fl (6.2-12.0); Monocyte# 0.82 X10^3/uL; Monocyte% 9.6 % (0-10); NRBC Flagged by Analyzer 0 % (0-5); Neutrophil # 4.58 X10^3/uL (2.7-7.7); Neutrophil % 53.6 % (47-70); Platelet Count 249 K/mm3 (150-450); RBC Distribution Width CV 14.3 % (11.6-14.6); RBC Distribution Width SD 47.6 fl (35.1-43.9); Red Blood Count 4.76 M/mm3 (4.2-5.4); White Blood Count 8.5 K/mm3 (4.4-11.0)
[2021-06-27 13:02] LABS: ALB/GLOB Ratio 0.8 RATIO (0.9-2.4); AST(SGOT) 18 U/L (15-37); Alanine Aminotransfer ALT/SGPT 25 U/L (13-56); Albumin, Serum 3.5 g/dL (3.2-5.0); Alkaline Phosphatase 112 U/L (45-117); Anion Gap 5 (5-15); BUN 30 mg/dL (7-18); Calcium,Total 10.1 mg/dL (8.5-10.1); Chloride 107 mmol/L (98-107); Creatinine, Serum 1.25 mg/dL (0.55-1.02); EST Glomerular Filtration Rate 46 mL/min (>60); Est Glom Filt Rate - Afr Amer 55 mL/min (>60); Globulin 4.3 g/dL (2.2-4.2); Glucose 115 mg/dL (74-106); Protein, Total 7.8 g/dL (6.4-8.2); Sodium Level 139 mmol/L (136-145)
[2021-06-27 13:32] LABS: Hepatitis B Surface Antibody Reactive; Hepatitis B Surface Antigen Non-Reactive (Nonreactive); Hepatitis C Antibody Non-Reactive (Nonreactive)
[2021-06-28 20:06] LABS: ANTINUCLEAR ANTIBODIES DIRECT Positive (Negative)
[2021-06-30 08:44] LABS: CCP IgG Antibodies 4 units (0-19)
== END 2021-06-27 23:59 | disposition home or self-care (01) ==
LOC: MTLAB 10:13
PROVIDERS: PCP Internal Medicine; Referring Provider Internal Medicine Rheumatology; Visit Provider Internal Medicine Rheumatology
DX: M06.4 Inflammatory polyarthropathy (principal); M17.0 Bilateral primary osteoarthritis of knee; M19.071 Primary osteoarthritis, right ankle and foot; I10 Essential (primary) hypertension; E78.5 Hyperlipidemia, unspecified; I87.2 Venous insufficiency (chronic) (peripheral)
CPT/HCPCS: 36415; 80053; 85025; 85652; 86038; 86140; 86200; 86431; 86706; 86803; 87340

== ENCOUNTER 2021-07-04 09:17 | Outpatient (CLI) | payer MEDICARE, SELFPAY | END 2021-07-04 23:59 | disposition home or self-care (01) | LOC: PSN 09:18 | PROVIDERS: PCP Internal Medicine; Referring Provider Internal Medicine Cardiovascular Disease; Visit Provider Internal Medicine Cardiovascular Disease | DX: R00.1 Bradycardia, unspecified (principal); E78.2 Mixed hyperlipidemia; I10 Essential (primary) hypertension | CPT/HCPCS: 93225; 93226 ==

== ENCOUNTER → 2021-07-11 | Outpatient (CLI) | payer MEDICARE, SELFPAY ==
[2021-07-11 10:18] LABS: EXAGEN MAILED SPECIMEN
[2021-07-11 10:24] LABS: Color, Urine Yellow (Yellow); Glucose, Dipstick Normal (Normal); Ketone-Dipstick Negative (Negative); Leukocyte Esterase-Dipstick 25 /ul (Negative); Nitrite-Dipstick Negative (Negative); Occult Blood-Urine Negative /ul (Negative); Protein-Dipstick Negative (Negative); Urine Bilirubin Dipstick Negative (Negative); Urine Clarity Clear (Clear); Urine Urobilinogen Normal (Normal)
[2021-07-11 10:28] LABS: Protein, Urine (Random) 100.9 mg/dL (<11.9); Protein:Creat Ratio 528 mg/g CRE (0-200)
[2021-07-11 10:41] LABS: ALB/GLOB Ratio 0.5 RATIO (0.9-2.4); AST(SGOT) 37 U/L (15-37); Alanine Aminotransfer ALT/SGPT 63 U/L (13-56); Albumin, Serum 2.8 g/dL (3.2-5.0); Alkaline Phosphatase 165 U/L (45-117); Anion Gap 8 (5-15); BUN 18 mg/dL (7-18); BUN/Creat Ratio 16.1 RATIO (10-20); Calcium,Total 9.7 mg/dL (8.5-10.1); Chloride 105 mmol/L (98-107); Creatinine, Serum 1.12 mg/dL (0.55-1.02); EST Glomerular Filtration Rate 52 mL/min (>60); Est Glom Filt Rate - Afr Amer 63 mL/min (>60); Globulin 5.2 g/dL (2.2-4.2); Glucose 118 mg/dL (74-106); Potassium 3.9 mmol/L (3.5-5.1); Sodium Level 139 mmol/L (136-145)
== END | disposition home or self-care (01) ==
LOC: MTLAB 09:09
PROVIDERS: PCP Internal Medicine; Referring Provider Internal Medicine Rheumatology; Visit Provider Internal Medicine Rheumatology
DX: M06.4 Inflammatory polyarthropathy (principal); M17.0 Bilateral primary osteoarthritis of knee; M19.071 Primary osteoarthritis, right ankle and foot; I10 Essential (primary) hypertension; E78.5 Hyperlipidemia, unspecified; I87.2 Venous insufficiency (chronic) (peripheral); J45.909 Unspecified asthma, uncomplicated; R76.8 Other specified abnormal immunological findings in serum
CPT/HCPCS: 36415; 80053; 81002; 82570; 84156

== ENCOUNTER → 2021-10-01 | Outpatient (CLI) | payer MEDICARE, SELFPAY ==
[2021-10-01 09:59] LABS: Absolute Lymphocyte Count 3.21 X10^3/uL (0.83-4.51); Absolute Neutrophil Count 3.3 X10^3/uL (2.0-7.7); Basophil# 0.06 X10^3/uL; Basophil% 0.8 % (0-1); Eosinophil# 0.06 X10^3/uL; Eosinophils% 0.8 % (0-5); Hematocrit 41.3 % (37-47); Hemoglobin 13.3 g/dL (12.0-15.0); Lymphocyte # 3.21 X10^3/ul (0.83-4.51); Mean Corp Hgb Conc 32.2 g/dL (32-36); Mean Corpuscular Hgb 29.7 pg (27.0-32.0); Mean Corpuscular Volume 92.2 fL (81-99); Mean Platelet Vol. 9.4 fl (6.2-12.0); Monocyte% 8.2 % (0-10); NRBC Flagged by Analyzer 0 % (0-5); Neutrophil # 3.34 X10^3/uL (2.7-7.7); Neutrophil % 45.8 % (47-70); Platelet Count 240 K/mm3 (150-450); RBC Distribution Width CV 15.4 % (11.6-14.6); RBC Distribution Width SD 52.1 fl (35.1-43.9); Red Blood Count 4.48 M/mm3 (4.2-5.4); White Blood Count 7.3 K/mm3 (4.4-11.0)
[2021-10-01 10:25] LABS: ALB/GLOB Ratio 0.9 RATIO (0.9-2.4); AST(SGOT) 16 U/L (15-37); Alanine Aminotransfer ALT/SGPT 22 U/L (13-56); Albumin, Serum 3.3 g/dL (3.2-5.0); Alkaline Phosphatase 82 U/L (45-117); Anion Gap 5 (5-15); BUN 22 mg/dL (7-18); BUN/Creat Ratio 18.6 RATIO (10-20); Calcium,Total 9.7 mg/dL (8.5-10.1); Chloride 108 mmol/L (98-107); Creatinine, Serum 1.18 mg/dL (0.55-1.02); EST Glomerular Filtration Rate 49 mL/min (>60); Est Glom Filt Rate - Afr Amer 59 mL/min (>60); Globulin 3.8 g/dL (2.2-4.2); Glucose 102 mg/dL (74-106); Potassium 3.9 mmol/L (3.5-5.1); Protein, Total 7.1 g/dL (6.4-8.2); Sodium Level 141 mmol/L (136-145)
== END | disposition home or self-care (01) ==
PROVIDERS: PCP Internal Medicine; Referring Provider Internal Medicine Rheumatology; Visit Provider Internal Medicine Rheumatology
DX: M05.79 Rheumatoid arthritis with rheumatoid factor of multiple sites without organ or systems involvement (principal); R76.8 Other specified abnormal immunological findings in serum; M19.071 Primary osteoarthritis, right ankle and foot; M25.562 Pain in left knee; E78.5 Hyperlipidemia, unspecified; J45.909 Unspecified asthma, uncomplicated; I87.2 Venous insufficiency (chronic) (peripheral); I10 Essential (primary) hypertension; Z79.899 Other long term (current) drug therapy
CPT/HCPCS: 36415; 80053; 85025

== ENCOUNTER → 2021-10-02 | Outpatient (CLI) | payer MEDICARE, SELFPAY ==
[2021-10-02 16:11] LABS: Protein, Urine (Random) 23.1 mg/dL (<11.9); Protein:Creat Ratio 77 mg/g CRE (0-200)
== END | disposition home or self-care (01) ==
LOC: MTLAB 09:00
PROVIDERS: PCP Internal Medicine; Referring Provider Internal Medicine Rheumatology; Visit Provider Internal Medicine Rheumatology
DX: M05.79 Rheumatoid arthritis with rheumatoid factor of multiple sites without organ or systems involvement (principal); R76.8 Other specified abnormal immunological findings in serum; M19.071 Primary osteoarthritis, right ankle and foot; M25.562 Pain in left knee; I10 Essential (primary) hypertension; E78.5 Hyperlipidemia, unspecified; J45.909 Unspecified asthma, uncomplicated; I87.2 Venous insufficiency (chronic) (peripheral); Z79.899 Other long term (current) drug therapy
CPT/HCPCS: 82570; 84156

== ENCOUNTER → 2021-11-30 | Outpatient (CLI) | payer MEDICARE, SELFPAY ==
[2021-11-30 10:02] LABS: Absolute Lymphocyte Count 2.67 X10^3/uL (0.83-4.51); Absolute Neutrophil Count 2.9 X10^3/uL (2.0-7.7); Basophil# 0.06 X10^3/uL; Basophil% 0.9 % (0-1); Eosinophil# 0.09 X10^3/uL; Eosinophils% 1.4 % (0-5); Hematocrit 43.2 % (37-47); Hemoglobin 13.9 g/dL (12.0-15.0); Lymphocyte # 2.67 X10^3/ul (0.83-4.51); Lymphocyte % 41.8 % (19-41); Mean Corp Hgb Conc 32.2 g/dL (32-36); Mean Corpuscular Hgb 30.3 pg (27.0-32.0); Mean Corpuscular Volume 94.3 fL (81-99); Mean Platelet Vol. 9.3 fl (6.2-12.0); Monocyte# 0.65 X10^3/uL; Monocyte% 10.2 % (0-10); NRBC Flagged by Analyzer 0 % (0-5); Neutrophil # 2.89 X10^3/uL (2.7-7.7); Neutrophil % 45.4 % (47-70); Platelet Count 214 K/mm3 (150-450); RBC Distribution Width CV 13.4 % (11.6-14.6); RBC Distribution Width SD 46.5 fl (35.1-43.9); Red Blood Count 4.58 M/mm3 (4.2-5.4); White Blood Count 6.4 K/mm3 (4.4-11.0)
[2021-11-30 10:30] LABS: ALB/GLOB Ratio 0.9 RATIO (0.9-2.4); AST(SGOT) 19 U/L (15-37); Alanine Aminotransfer ALT/SGPT 23 U/L (13-56); Albumin, Serum 3.4 g/dL (3.2-5.0); Alkaline Phosphatase 94 U/L (45-117); Anion Gap 6 (5-15); BUN 28 mg/dL (7-18); BUN/Creat Ratio 22.6 RATIO (10-20); Calcium,Total 10.1 mg/dL (8.5-10.1); Chloride 109 mmol/L (98-107); Creatinine, Serum 1.24 mg/dL (0.55-1.02); EST Glomerular Filtration Rate 46 mL/min (>60); Est Glom Filt Rate - Afr Amer 56 mL/min (>60); Globulin 3.9 g/dL (2.2-4.2); Glucose 107 mg/dL (74-106); Potassium 4.1 mmol/L (3.5-5.1); Protein, Total 7.3 g/dL (6.4-8.2); Sodium Level 142 mmol/L (136-145)
== END | disposition home or self-care (01) ==
LOC: MTLAB 08:04
PROVIDERS: PCP Internal Medicine; Referring Provider Internal Medicine Rheumatology; Visit Provider Internal Medicine Rheumatology
DX: M05.79 Rheumatoid arthritis with rheumatoid factor of multiple sites without organ or systems involvement (principal); R76.8 Other specified abnormal immunological findings in serum; M19.071 Primary osteoarthritis, right ankle and foot; M17.0 Bilateral primary osteoarthritis of knee; E78.5 Hyperlipidemia, unspecified; J45.909 Unspecified asthma, uncomplicated; I87.2 Venous insufficiency (chronic) (peripheral); I10 Essential (primary) hypertension; Z79.899 Other long term (current) drug therapy
CPT/HCPCS: 36415; 80053; 85025

== ENCOUNTER → 2022-01-28 | Outpatient (CLI) | payer MEDICARE, SELFPAY ==
[2022-01-28 09:54] LABS: Absolute Lymphocyte Count 2.91 X10^3/uL (0.83-4.51); Absolute Neutrophil Count 3.3 X10^3/uL (2.0-7.7); Basophil# 0.06 X10^3/uL; Basophil% 0.9 % (0-1); Eosinophil# 0.08 X10^3/uL; Eosinophils% 1.1 % (0-5); Hematocrit 43.7 % (37-47); Hemoglobin 14.2 g/dL (12.0-15.0); Lymphocyte # 2.91 X10^3/ul (0.83-4.51); Lymphocyte % 41.8 % (19-41); Mean Corp Hgb Conc 32.5 g/dL (32-36); Mean Corpuscular Volume 92.4 fL (81-99); Mean Platelet Vol. 9.3 fl (6.2-12.0); Monocyte# 0.61 X10^3/uL; Monocyte% 8.8 % (0-10); NRBC Flagged by Analyzer 0 % (0-5); Neutrophil # 3.27 X10^3/uL (2.7-7.7); Platelet Count 223 K/mm3 (150-450); RBC Distribution Width CV 13.8 % (11.6-14.6); Red Blood Count 4.73 M/mm3 (4.2-5.4)
[2022-01-28 10:29] LABS: Bilirubin, Direct 0.15 mg/dL (0.00-0.30); Cholesterol 189 mg/dL (200); High Density Lipoprotein 50 mg/dL; Triglycerides 171 mg/dL; Very Low Density Lipoprotein 34 mg/dL (5-40)
[2022-01-30 16:24] LABS: ALB/GLOB Ratio 0.9 RATIO (0.9-2.4); AST(SGOT) 21 U/L (15-37); Alanine Aminotransfer ALT/SGPT 23 U/L (13-56); Albumin, Serum 3.6 g/dL (3.2-5.0); Alkaline Phosphatase 102 U/L (45-117); Anion Gap 8 (5-15); BUN 23 mg/dL (7-18); BUN/Creat Ratio 20.5 RATIO (10-20); Calcium,Total 10.2 mg/dL (8.5-10.1); Chloride 108 mmol/L (98-107); Creatinine, Serum 1.12 mg/dL (0.55-1.02); EST Glomerular Filtration Rate 52 mL/min (>60); Est Glom Filt Rate - Afr Amer 62 mL/min (>60); Globulin 3.9 g/dL (2.2-4.2); Glucose 109 mg/dL (74-106); Potassium 4.3 mmol/L (3.5-5.1); Protein, Total 7.5 g/dL (6.4-8.2); Sodium Level 144 mmol/L (136-145)
== END | disposition home or self-care (01) ==
PROVIDERS: Nurse Practitioner Gerontology; PCP Internal Medicine; Referring Provider Internal Medicine Rheumatology; Visit Provider Internal Medicine Rheumatology
DX: R76.8 Other specified abnormal immunological findings in serum (principal); M05.79 Rheumatoid arthritis with rheumatoid factor of multiple sites without organ or systems involvement; Z79.899 Other long term (current) drug therapy
CPT/HCPCS: 36415; 80053; 80061; 82248; 85025

== ENCOUNTER → 2022-03-12 | Outpatient (CLI) | payer MEDICARE, SELFPAY ==
[2022-03-12 10:03] LABS: Absolute Lymphocyte Count 2.66 X10^3/uL (0.83-4.51); Basophil# 0.06 X10^3/uL; Basophil% 0.9 % (0-1); Eosinophil# 0.12 X10^3/uL; Eosinophils% 1.8 % (0-5); Hematocrit 40.8 % (37-47); Hemoglobin 13.6 g/dL (12.0-15.0); Lymphocyte # 2.66 X10^3/ul (0.83-4.51); Lymphocyte % 40.1 % (19-41); Mean Corp Hgb Conc 33.3 g/dL (32-36); Mean Corpuscular Hgb 31.3 pg (27.0-32.0); Mean Corpuscular Volume 93.8 fL (81-99); Mean Platelet Vol. 9.2 fl (6.2-12.0); Monocyte# 0.79 X10^3/uL; Monocyte% 11.9 % (0-10); NRBC Flagged by Analyzer 0 % (0-5); Neutrophil % 45.1 % (47-70); Platelet Count 229 K/mm3 (150-450); RBC Distribution Width CV 14.1 % (11.6-14.6); RBC Distribution Width SD 48.7 fl (35.1-43.9); Red Blood Count 4.35 M/mm3 (4.2-5.4); White Blood Count 6.6 K/mm3 (4.4-11.0)
[2022-03-12 10:37] LABS: AST(SGOT) 18 U/L (15-37); Alanine Aminotransfer ALT/SGPT 23 U/L (13-56); Albumin, Serum 3.3 g/dL (3.2-5.0); Alkaline Phosphatase 102 U/L (45-117); Anion Gap 4 (5-15); BUN 21 mg/dL (7-18); BUN/Creat Ratio 20.4 RATIO (10-20); Calcium,Total 9.9 mg/dL (8.5-10.1); Chloride 109 mmol/L (98-107); Creatinine, Serum 1.03 mg/dL (0.55-1.02); EST Glomerular Filtration Rate 57 mL/min (>60); Est Glom Filt Rate - Afr Amer 69 mL/min (>60); Globulin 3.4 g/dL (2.2-4.2); Glucose 106 mg/dL (74-106); Potassium 4.2 mmol/L (3.5-5.1); Protein, Total 6.7 g/dL (6.4-8.2); Sodium Level 142 mmol/L (136-145)
== END | disposition home or self-care (01) ==
LOC: MTLAB 08:56
PROVIDERS: PCP Internal Medicine; Referring Provider Internal Medicine Rheumatology; Visit Provider Internal Medicine Rheumatology
DX: M05.79 Rheumatoid arthritis with rheumatoid factor of multiple sites without organ or systems involvement (principal); Z79.899 Other long term (current) drug therapy
CPT/HCPCS: 36415; 80053; 85025

== ENCOUNTER → 2022-03-15 | Outpatient (CLI) | payer MEDICARE, SELFPAY ==
--- NOTE | 2022-03-15 11:22 | RAD_ITS ---
INDICATION: Posterior rib pain EXAMINATION/TECHNIQUE: X-RAY - RIGHT XR Hip Unilateral with Pelvis when performed; 2-3 Views 3 VIEWS COMPARISON: 07/02/2021 FINDINGS: SOFT TISSUES: No soft tissue swelling or gas. No radiopaque foreign body. BONES/JOINTS: No acute fracture or subluxation. The pelvic ring appears intact. Normal alignment. Preservation of the joint space. RAD/HIP, UNI W/ Pelvis 2-3 Views IMPRESSION: Negative. Electronically Signed: Amarjit Martinez MD at 16:20 EST ,
[2022-03-15 13:24] LABS: AST(SGOT) 24 U/L (15-37); Alanine Aminotransfer ALT/SGPT 25 U/L (13-56); Albumin, Serum 3.5 g/dL (3.2-5.0); Alkaline Phosphatase 121 U/L (45-117); Anion Gap 7 (5-15); BUN 23 mg/dL (7-18); BUN/Creat Ratio 23.7 RATIO (10-20); Calcium,Total 9.8 mg/dL (8.5-10.1); Chloride 107 mmol/L (98-107); Creatinine, Serum 0.97 mg/dL (0.55-1.02); EST Glomerular Filtration Rate 61 mL/min (>60); Est Glom Filt Rate - Afr Amer 74 mL/min (>60); Globulin 3.4 g/dL (2.2-4.2); Glucose 95 mg/dL (74-106); Potassium 4.1 mmol/L (3.5-5.1); Protein, Total 6.9 g/dL (6.4-8.2); Sodium Level 141 mmol/L (136-145)
== END | disposition home or self-care (01) ==
LOC: MTLAB 11:21
PROVIDERS: PCP Internal Medicine; Referring Provider Internal Medicine Rheumatology; Visit Provider Internal Medicine Rheumatology
DX: M05.751 Rheumatoid arthritis with rheumatoid factor of right hip without organ or systems involvement (principal); R76.8 Other specified abnormal immunological findings in serum; M19.071 Primary osteoarthritis, right ankle and foot; M17.0 Bilateral primary osteoarthritis of knee; E78.5 Hyperlipidemia, unspecified; J45.909 Unspecified asthma, uncomplicated; I87.2 Venous insufficiency (chronic) (peripheral); I10 Essential (primary) hypertension; Z79.899 Other long term (current) drug therapy
CPT/HCPCS: 36415; 73502; 80053

== ENCOUNTER → 2022-06-03 | Outpatient (CLI) | payer MEDICARE, SELFPAY ==
[2022-06-03 12:07] LABS: Hematocrit 43.7 % (37-47); Hemoglobin 13.7 g/dL (12.0-15.0); Mean Corp Hgb Conc 31.4 g/dL (32-36); Mean Corpuscular Hgb 29.4 pg (27.0-32.0); Mean Corpuscular Volume 93.8 fL (81-99); Platelet Count 218 K/mm3 (150-450); RBC Distribution Width CV 14.2 % (11.6-14.6); RBC Distribution Width SD 48.6 fl (35.1-43.9); Red Blood Count 4.66 M/mm3 (4.2-5.4); White Blood Count 5.8 K/mm3 (4.4-11.0)
== END | disposition home or self-care (01) ==
PROVIDERS: PCP Internal Medicine; Visit Provider Internal Medicine Rheumatology
DX: M05.751 Rheumatoid arthritis with rheumatoid factor of right hip without organ or systems involvement (principal); R76.8 Other specified abnormal immunological findings in serum; M19.071 Primary osteoarthritis, right ankle and foot; M17.0 Bilateral primary osteoarthritis of knee; E78.5 Hyperlipidemia, unspecified; J45.909 Unspecified asthma, uncomplicated; I87.2 Venous insufficiency (chronic) (peripheral); I10 Essential (primary) hypertension; Z79.899 Other long term (current) drug therapy
CPT/HCPCS: 36415; 85027

== ENCOUNTER → 2022-06-05 | Outpatient (CLI) | payer MEDICARE, SELFPAY ==
[2022-06-05 15:41] LABS: Absolute Lymphocyte Count 2.33 X10^3/uL (0.83-4.51); Absolute Neutrophil Count 2.7 X10^3/uL (2.0-7.7); Basophil# 0.06 X10^3/uL; Eosinophils% 1.7 % (0-5); Hematocrit 43.2 % (37-47); Hemoglobin 13.5 g/dL (12.0-15.0); Lymphocyte # 2.33 X10^3/ul (0.83-4.51); Lymphocyte % 38.6 % (19-41); Mean Corp Hgb Conc 31.3 g/dL (32-36); Mean Corpuscular Hgb 29.4 pg (27.0-32.0); Mean Corpuscular Volume 94.1 fL (81-99); Mean Platelet Vol. 10.3 fl (6.2-12.0); Monocyte# 0.84 X10^3/uL; Monocyte% 13.9 % (0-10); NRBC Flagged by Analyzer 0 % (0-5); Neutrophil # 2.69 X10^3/uL (2.7-7.7); Neutrophil % 44.6 % (47-70); Platelet Count 231 K/mm3 (150-450); RBC Distribution Width SD 47.8 fl (35.1-43.9); Red Blood Count 4.59 M/mm3 (4.2-5.4)
[2022-06-05 16:19] LABS: ALB/GLOB Ratio 0.9 RATIO (0.9-2.4); AST(SGOT) 24 U/L (15-37); Alanine Aminotransfer ALT/SGPT 25 U/L (13-56); Albumin, Serum 3.4 g/dL (3.2-5.0); Alkaline Phosphatase 87 U/L (45-117); Anion Gap 8 (5-15); BUN 20 mg/dL (7-18); BUN/Creat Ratio 16.7 RATIO (10-20); Calcium,Total 9.6 mg/dL (8.5-10.1); Chloride 107 mmol/L (98-107); EST Glomerular Filtration Rate 48 mL/min (>60); Est Glom Filt Rate - Afr Amer 58 mL/min (>60); Globulin 3.9 g/dL (2.2-4.2); Glucose 117 mg/dL (74-106); Potassium 3.7 mmol/L (3.5-5.1); Protein, Total 7.3 g/dL (6.4-8.2); Sodium Level 143 mmol/L (136-145)
== END | disposition home or self-care (01) ==
LOC: MTLAB 11:34
PROVIDERS: PCP Internal Medicine; Visit Provider Internal Medicine Rheumatology
DX: M05.70 Rheumatoid arthritis with rheumatoid factor of unspecified site without organ or systems involvement (principal); R76.8 Other specified abnormal immunological findings in serum; Z79.899 Other long term (current) drug therapy
CPT/HCPCS: 36415; 80053; 85025

== ENCOUNTER → 2022-08-07 | Outpatient (CLI) | payer MEDICARE, SELFPAY ==
[2022-08-07 09:52] LABS: AST(SGOT) 42 U/L (15-37); Alanine Aminotransfer ALT/SGPT 34 U/L (13-56); Albumin, Serum 3.3 g/dL (3.2-5.0); Alkaline Phosphatase 133 U/L (45-117); Anion Gap 8 (5-15); BUN 22 mg/dL (7-18); BUN/Creat Ratio 18.6 RATIO (10-20); Bilirubin, Direct 0.16 mg/dL (0.00-0.30); Calcium,Total 9.9 mg/dL (8.5-10.1); Chloride 107 mmol/L (98-107); Cholesterol 157 mg/dL (200); Creatinine, Serum 1.18 mg/dL (0.55-1.02); EST Glomerular Filtration Rate 49 mL/min (>60); Est Glom Filt Rate - Afr Amer 59 mL/min (>60); Globulin 4.2 g/dL (2.2-4.2); Glucose 115 mg/dL (74-106); High Density Lipoprotein 44 mg/dL; Protein, Total 7.5 g/dL (6.4-8.2); Sodium Level 141 mmol/L (136-145); Triglycerides 263 mg/dL; Very Low Density Lipoprotein 53 mg/dL (5-40)
== END | disposition home or self-care (01) ==
LOC: LAB 08:45
PROVIDERS: PCP Internal Medicine; Referring Provider Nurse Practitioner Gerontology; Visit Provider Nurse Practitioner Gerontology
DX: N18.30 Chronic kidney disease, stage 3 unspecified (principal); E78.00 Pure hypercholesterolemia, unspecified
CPT/HCPCS: 36415; 80048; 80061; 80076

== ENCOUNTER → 2022-08-29 | Outpatient (CLI) | payer MEDICARE, SELFPAY ==
[2022-08-29 10:30] LABS: Absolute Lymphocyte Count 2.86 X10^3/uL (0.83-4.51); Absolute Neutrophil Count 2.2 X10^3/uL (2.0-7.7); Basophil# 0.07 X10^3/uL; Basophil% 1.1 % (0-1); Eosinophil# 0.23 X10^3/uL; Eosinophils% 3.7 % (0-5); Hemoglobin 13.2 g/dL (12.0-15.0); Lymphocyte # 2.86 X10^3/ul (0.83-4.51); Lymphocyte % 45.4 % (19-41); Mean Corp Hgb Conc 32.2 g/dL (32-36); Mean Corpuscular Hgb 29.7 pg (27.0-32.0); Mean Corpuscular Volume 92.1 fL (81-99); Mean Platelet Vol. 10.1 fl (6.2-12.0); Monocyte# 0.88 X10^3/uL; NRBC Flagged by Analyzer 0 % (0-5); Neutrophil # 2.24 X10^3/uL (2.7-7.7); Neutrophil % 35.5 % (47-70); Platelet Count 225 K/mm3 (150-450); RBC Distribution Width CV 15.1 % (11.6-14.6); RBC Distribution Width SD 50.9 fl (35.1-43.9); Red Blood Count 4.45 M/mm3 (4.2-5.4); White Blood Count 6.3 K/mm3 (4.4-11.0)
[2022-08-29 11:43] LABS: ALB/GLOB Ratio 0.7 RATIO (0.9-2.4); AST(SGOT) 22 U/L (15-37); Alanine Aminotransfer ALT/SGPT 20 U/L (13-56); Albumin, Serum 3.1 g/dL (3.2-5.0); Alkaline Phosphatase 107 U/L (45-117); Anion Gap 8 (5-15); BUN 20 mg/dL (7-18); BUN/Creat Ratio 18.5 RATIO (10-20); Calcium,Total 9.7 mg/dL (8.5-10.1); Chloride 110 mmol/L (98-107); Creatinine, Serum 1.08 mg/dL (0.55-1.02); EST Glomerular Filtration Rate 54 mL/min (>60); Est Glom Filt Rate - Afr Amer 65 mL/min (>60); Globulin 4.2 g/dL (2.2-4.2); Glucose 108 mg/dL (74-106); Potassium 3.8 mmol/L (3.5-5.1); Protein, Total 7.3 g/dL (6.4-8.2); Sodium Level 140 mmol/L (136-145)
== END | disposition home or self-care (01) ==
LOC: MTLAB 07:23
PROVIDERS: PCP Internal Medicine; Referring Provider Internal Medicine Rheumatology; Visit Provider Internal Medicine Rheumatology
DX: M05.70 Rheumatoid arthritis with rheumatoid factor of unspecified site without organ or systems involvement (principal); R76.8 Other specified abnormal immunological findings in serum; Z79.899 Other long term (current) drug therapy
CPT/HCPCS: 36415; 80053; 85025

== ENCOUNTER → 2022-11-26 | Outpatient (CLI) | payer MEDICARE, SELFPAY ==
[2022-11-26 10:10] LABS: Absolute Lymphocyte Count 2.19 X10^3/uL (0.83-4.51); Absolute Neutrophil Count 2.6 X10^3/uL (2.0-7.7); Basophil# 0.08 X10^3/uL; Basophil% 1.4 % (0-1); Eosinophils% 1.8 % (0-5); Hemoglobin 12.9 g/dL (12.0-15.0); Lymphocyte # 2.19 X10^3/ul (0.83-4.51); Mean Corp Hgb Conc 30.7 g/dL (32-36); Mean Corpuscular Hgb 28.9 pg (27.0-32.0); Mean Platelet Vol. 9.8 fl (6.2-12.0); Monocyte# 0.67 X10^3/uL; Monocyte% 11.9 % (0-10); NRBC Flagged by Analyzer 0 % (0-5); Neutrophil # 2.57 X10^3/uL (2.7-7.7); Neutrophil % 45.7 % (47-70); Platelet Count 216 K/mm3 (150-450); RBC Distribution Width CV 14.5 % (11.6-14.6); RBC Distribution Width SD 49.1 fl (35.1-43.9); Red Blood Count 4.47 M/mm3 (4.2-5.4); White Blood Count 5.6 K/mm3 (4.4-11.0)
[2022-11-26 10:50] LABS: ALB/GLOB Ratio 0.8 RATIO (0.9-2.4); AST(SGOT) 22 U/L (15-37); Alanine Aminotransfer ALT/SGPT 20 U/L (13-56); Albumin, Serum 3.2 g/dL (3.2-5.0); Alkaline Phosphatase 89 U/L (45-117); Anion Gap 5 (5-15); BUN 20 mg/dL (7-18); Calcium,Total 9.9 mg/dL (8.5-10.1); Chloride 110 mmol/L (98-107); Creatinine, Serum 1.11 mg/dL (0.55-1.02); EST Glomerular Filtration Rate 52 mL/min (>60); Est Glom Filt Rate - Afr Amer 63 mL/min (>60); Globulin 3.9 g/dL (2.2-4.2); Glucose 109 mg/dL (74-106); Potassium 3.8 mmol/L (3.5-5.1); Protein, Total 7.1 g/dL (6.4-8.2); Sodium Level 141 mmol/L (136-145)
== END | disposition home or self-care (01) ==
LOC: MTLAB 08:50
PROVIDERS: PCP Internal Medicine; Visit Provider Internal Medicine Rheumatology
DX: M05.70 Rheumatoid arthritis with rheumatoid factor of unspecified site without organ or systems involvement (principal); R76.8 Other specified abnormal immunological findings in serum; M19.071 Primary osteoarthritis, right ankle and foot; M17.0 Bilateral primary osteoarthritis of knee; E78.5 Hyperlipidemia, unspecified; J45.909 Unspecified asthma, uncomplicated; I87.2 Venous insufficiency (chronic) (peripheral); I10 Essential (primary) hypertension; Z79.899 Other long term (current) drug therapy
CPT/HCPCS: 36415; 80053; 85025

== ENCOUNTER → 2022-12-02 | Outpatient (CLI) | payer MEDICARE, SELFPAY ==
--- NOTE | 2022-12-02 15:29 | NEURO ---
NCS and/or EMG Patient Report Ordering Doctor: Madan Velásquez DATE OF SERVICE: 12/02/22 Findings: Nerve conduction studies were performed in the right upper extremity. The right median motor study recording the abductor pollicis brevis showed a reduced amplitude, markedly prolonged distal latency and markedly slowed conduction velocity. The right ulnar motor study recording the abductor digiti minimi showed a normal amplitude, normal distal latency and normal conduction velocity. No conduction block or focal slowing was present across the elbow. The right median sensory response recording digit two was absent. The right ulnar sensory response recording digit five showed a normal amplitude, latency and conduction velocity. The right radial sensory response recording over the extensor snuff box showed a normal amplitude, latency and conduction velocity. Right median-ulnar lumbrical / interosseous motor latencies showed a prolonged median latency compared to the ulnar. Needle EMG of the right upper extremity was intentionally omitted given the confirmatory nature of the nerve conductions and the lack of superimposed radicular symptoms. Impression: This is an abnormal study. There is electrophysiologic evidence of median neuropathy across the right wrist. The pathophysiology is demyelinating, however, there is evidence of significant secondary axonal loss. These findings are compatible with the clinical diagnosis of severe carpal tunnel syndrome. Issac Huffman D.O. Multi Select Codes Neurology Neurology Interp Codes: 44672-19 [facility] test 7-8 studies (interp)
== END | disposition home or self-care (01) ==
LOC: PSN 14:19
PROVIDERS: PCP Internal Medicine; Referring Provider Internal Medicine; Visit Provider Internal Medicine
DX: G56.01 Carpal tunnel syndrome, right upper limb (principal)
CPT/HCPCS: 95910

== ENCOUNTER → 2022-12-18 | Outpatient (CLI) | payer MEDICARE, SELFPAY ==
--- NOTE | 2022-12-18 10:14 | BI_ITS ---
MAMMOGRAPHY - BILATERAL SCREENING REASON FOR EXAM: Female, 67 years old. Routine annual screening examination. PERTINENT HISTORY: Non-contributory. TECHNIQUE: Digital bilateral breast claudette (3D mammographic acquisition) in the CC and MLO projections. 2-D mediolateral oblique (MLO) and craniocaudad (CC) views of both breasts were obtained. CAD: Full Field Digital Mammography with Computer Added Detection was performed. COMPARISON: Comparison is made with prior outside examination dated June 26, 2017. FINDINGS: Breast Composition: The breasts are almost entirely fatty. There are no dominant masses or suspicious calcifications. Stable small benign-appearing bilateral axillary lymph nodes. No other significant abnormalities are identified. There has been no significant change since the prior study. BI/SCRN MAMM (CAD)W/CLAUDETTE BILAT IMPRESSION: Stable bilateral screening mammogram. Yearly follow-up mammogram recommended. (A) ASSESSMENT CATEGORY: BIRADS Category 2: Benign. A letter regarding these results will be sent to the patient by the facility within 30 days. Approximately 10% of breast cancers are not detected by mammography. A normal mammogram should not delay biopsy of a clinically suspicious abnormality. [id number] Electronically Signed: Bebo Rivas MD at 11:31 EDT ,
== END | disposition home or self-care (01) ==
LOC: OPBI 10:13
PROVIDERS: PCP Internal Medicine; Referring Provider Internal Medicine; Visit Provider Internal Medicine
DX: Z12.31 Encounter for screening mammogram for malignant neoplasm of breast (principal)
CPT/HCPCS: 77063; 77067

== ENCOUNTER → 2023-02-17 | Outpatient (CLI) | payer MEDICARE, SELFPAY ==
[2023-02-17 11:31] LABS: Absolute Lymphocyte Count 2.48 X10^3/uL (0.83-4.51); Absolute Neutrophil Count 5.1 X10^3/uL (2.0-7.7); Basophil# 0.07 X10^3/uL; Basophil% 0.8 % (0-1); Eosinophil# 0.08 X10^3/uL; Eosinophils% 0.9 % (0-5); Hematocrit 40.7 % (37-47); Hemoglobin 12.7 g/dL (12.0-15.0); Lymphocyte # 2.48 X10^3/ul (0.83-4.51); Lymphocyte % 28.1 % (19-41); Mean Corp Hgb Conc 31.2 g/dL (32-36); Mean Corpuscular Hgb 29.3 pg (27.0-32.0); Mean Platelet Vol. 9.6 fl (6.2-12.0); Monocyte# 1.07 X10^3/uL; Monocyte% 12.1 % (0-10); NRBC Flagged by Analyzer 0 % (0-5); Neutrophil % 57.6 % (47-70); Platelet Count 246 K/mm3 (150-450); RBC Distribution Width CV 14.5 % (11.6-14.6); Red Blood Count 4.33 M/mm3 (4.2-5.4); White Blood Count 8.8 K/mm3 (4.4-11.0)
[2023-02-17 11:40] LABS: ALB/GLOB Ratio 0.8 RATIO (0.9-2.4); AST(SGOT) 29 U/L (15-37); Alanine Aminotransfer ALT/SGPT 23 U/L (13-56); Albumin, Serum 3.3 g/dL (3.2-5.0); Alkaline Phosphatase 79 U/L (45-117); Anion Gap 7 (5-15); BUN 26 mg/dL (7-18); BUN/Creat Ratio 21.7 RATIO (10-20); Calcium,Total 9.8 mg/dL (8.5-10.1); Chloride 108 mmol/L (98-107); Cholesterol 206 mg/dL (200); EST Glomerular Filtration Rate 48 mL/min (>60); Est Glom Filt Rate - Afr Amer 57 mL/min (>60); Globulin 4.1 g/dL (2.2-4.2); Glucose 101 mg/dL (74-106); High Density Lipoprotein 51 mg/dL; Potassium 4.1 mmol/L (3.5-5.1); Protein, Total 7.4 g/dL (6.4-8.2); Sodium Level 141 mmol/L (136-145); Triglycerides 199 mg/dL; Very Low Density Lipoprotein 40 mg/dL (5-40)
== END | disposition home or self-care (01) ==
LOC: MTLAB 09:45
PROVIDERS: PCP Internal Medicine; Referring Provider Internal Medicine Rheumatology; Visit Provider Internal Medicine Rheumatology
DX: M05.70 Rheumatoid arthritis with rheumatoid factor of unspecified site without organ or systems involvement (principal); R76.8 Other specified abnormal immunological findings in serum; G56.01 Carpal tunnel syndrome, right upper limb; Z79.899 Other long term (current) drug therapy
CPT/HCPCS: 36415; 80053; 80061; 85025

== ENCOUNTER → 2023-04-03 | Outpatient (CLI) | payer MEDICARE, SELFPAY ==
--- NOTE | 2023-04-03 10:05 | RAD_ITS ---
STUDY: X-RAY CHEST REASON FOR EXAM: Female, 68 years old. Shortness of breath. TECHNIQUE: Frontal and lateral views of the chest. COMPARISON: None. FINDINGS: The lungs are clear and expanded. Scattered healed granulomatous calcifications. No demonstrated pleural abnormality. Borderline cardiomegaly. Normal mediastinum and denice. Normal visualized pulmonary arteries. Aortic tortuosity with calcification. Thoracic osteopenia with diffuse spondylosis, thoracolumbar scoliosis and slight increased kyphosis. Normal visualized ribs, clavicles, and shoulders. No abnormality of the visualized soft tissue structures of the upper abdomen. RAD/Chest PA and Lateral IMPRESSION: Borderline cardiomegaly with no acute or active cardiopulmonary disease. Electronically Signed: Petros Garcia MD at 13:03 EST ,
--- OUTSIDE RECORDS SUMMARY | 2023-04-03 10:07 | XMS RPT_ITS | CCD ---
Author Name Unknown Address [address] [place] [address] Organization [facility] Care Team Providers Care Server Software Engineer Name Role Phone Santos, Lucy L. Unavailable Unavailable Santos, Lucy L. Unavailable Unavailable Santos, Lucy L. Unavailable Unavailable Santos, Lucy L. Unavailable Unavailable Santos, Lucy L. Unavailable Unavailable Santos, Lucy L. Unavailable Unavailable Santos, Lucy L. Unavailable Unavailable Santos Lucy LLatia Unavailable Unavailable Madan Velásquez MD Primary Care Provider [phone] OLEGHE, EFEWONGBE B Primary Care Unavailable KIRAN GIFFORD Attending Unavailable OLEGHE, EFEWONGBE B Primary Care Unavailable KIRAN GIFFORD Attending Unavailable OLEGHE, EFEWONGBE B Primary Care Unavailable MARY SAUL Referring Unavailable KIRAN GIFFORD Attending Unavailable OLEGHE, EFEWONGBE B Primary Care Unavailable KIRAN GIFFORD Attending Unavailable OLEGHE, EFEWONGBE B Primary Care Unavailable KIRAN GIFFORD Attending Unavailable OLEGHE, EFEWONGBE B Primary Care Unavailable OLEGHE, EFEWONGBE B Primary Care Unavailable KIRAN GIFFORD Attending Unavailable Allergies Allergy Classification Reported Allergen(s) Allergy Type Date of Onset Reaction(s) Facility (8 sources) Sulfonamides (Antibiotic); Translations: [SULFA (SULFONAMIDE ANTIBIOTICS)] Drug Intolerance 8 [facility] (7 sources) amLODIPine; Translations: [AMLODIPINE] Drug Allergy 3 [facility] (7 sources) Hydroxychloroquin e; Translations: [HYDROXYCHLOROQUI NE] Drug Allergy 3 [facility] Medications Current Medications Medication Drug Class(es) Dates Sig (Normalized) Sig (Original) moxifloxacin 5 mg/ml ophthalmic solution (2 sources) Quinolone Antimicrobial Start: 02-28-2023 End: 03-14-2023 take 1 drop(s) into the eye(s) four times daily moxifloxacin (VIGAMOX) 0.5 % ophthalmic solution Use 1 Drop in the right eye four times daily for 14 days. 3 mL 1 02/28/2023 03/14/2023 Active Completed/Discontinued Medications Medication Drug Class(es) Dates Sig (Normalized) Sig (Original) acetaminophen 325 mg oral capsule (6 sources) Start: 2020 acetaminophen 325 mg cap Take by mouth. 0 2020 Active Problems Active Problems Problem Classification Problem Date Documented Da te Episodic/Chronic Cataract (2 sources) Artificial lens present; Translations: [Presence of intraocular lens] 01-01-2023 Chronic Disorders of lipid metabolism (7 sources) Mixed hyperlipidemia; Translations: [Mixed hyperlipidemia] 06-06-2017 Chronic Essential hypertension (7 sources) Essential hypertension; Translations: [Essential (primary) hypertension] 06-06-2017 Chronic Gout and other crystal arthropathies (7 sources) Gout; Translations: [Gout, unspecified] Onset: 04-07-2018 04-07-2018 Chronic Other connective tissue disease (7 sources) Swelling of lower limb; Translations: [Other specified soft tissue disorders] 06-06-2017 Episodic Other endocrine disorders (7 sources) Adrenal mass; Translations: [Other specified disorders of adrenal gland] Onset: 02-14-2017 06-06-2017 Chronic Other eye disorders (2 sources) Secondary corneal edema; Translations: [Secondary corneal edema, right eye] 01-01-2023 Episodic Other eye disorders (2 sources) Scar of cornea of right eye; Translations: [Unspecified corneal scar and opacity] 01-01-2023 Episodic Other nutritional; endocrine; and metabolic disorders (7 sources) Body mass index 40+ - severely obese; Translations: [Morbid (severe) obesity due to excess calories] 06-06-2017 Chronic Thyroid disorders (7 sources) Thyroid nodule; Translations: [Nontoxic single thyroid nodule] Onset: 02-14-2017 06-06-2017 Chronic Unclassified (1 source) Unknown / UNK(Unknown) Onset: 09-19-2016 Past or Other Problems Problem Classification Problem Date Documented Da te Episodic/Chronic Other lower respiratory disease (1 source) Dyspnea Onset: 09-19-2016 Episodic Results Test Name Value Interpretation Reference Range Facil ity Encounters Encounter Date Encounter Type Care Provider Facility Start: 03-12-2023 End: 03-12-2023 ambulatory MADAN VELÁSQUEZ Facility:[facility] Start: 03-05-2023 End: 03-05-2023 ambulatory [facility] Start: 03-05-2023 End: 03-05-2023 Patient encounter procedure Kiran Gifford MD Work Phone: Ophthalmology Procedures Date Procedure Procedure Detail Performing Clinician Start: 01-22-2023 Cmptr ophthalmic dx img ant segmt w/i&r uni/bi Kiran Gifford MD Work Phone: Start: 05-17-2019 Colonoscopy Kiran forte MD Work Phone: Start: 10-08-2017 Lipid 1996 panel - S michael or Plasma Kiran Gifford MD Work Phone: Start: 06-26-2017 Mammography Kiran forte MD Work Phone: H/O: cornea recipient Status pos t corneal transplant Kiran Gifford MD Work Phone: H/O: cornea recipient Status pos t corneal transplant Kiran Gifford MD Work Phone: Plan of Treatment Date Care Activity Detail Author Start: 10-09-2027 Urine microalbumin profile [facility] Start: 11-15-2022 Covid-19 Vaccine ( season) Covid-19 Vaccine ( season) [facility] Start: 11-15-2022 Influenza vaccination [facility] Start: 10-08-2022 Lipid 1996 panel - S michael or Plasma Lipid Screening [facility] Start: 10-08-2022 Lipid panel Lipid Screening [facility] Start: 10-08-2022 LIPID SCREEN LIPID SCREEN [facility] Start: 03-17-2022 ADVANCE DIRECTIVE DISCUSSION ADVANCE DIRECTIVE DISCUSSION [facility] Start: 03-17-2022 DEPRESSION ASSESSMENT DEPRESSION ASS ESSMENT [facility] Start: 01-31-2022 Pneumococcal Vaccine : 65+ (2 - PPSV23 or PCV20) Pneumococcal Vaccine: 65+ (2 - PPSV23 or PCV20) [facility] Start: 03-31-2021 DIABETES SCREEN DIABETES SCREEN [facility] Start: 03-31-2021 Diabetes Screening Diabetes Screenin g [facility] Start: 03-28-2021 Pneumococcal Vaccine : 65+ (2 of 2 - PPSV23 or PCV20) Pneumococcal Vaccine: 65+ (2 of 2 - PPSV23 or PCV20) [facility] Start: 05-16-2020 Colonoscopy Colonoscopy [facility] Start: 05-16-2020 Colorectal Cancer Screening Colorectal Cancer Screening [facility] Start: 05-16-2020 Screening for malign ant neoplasm of colon [facility] Start: 01-29-2020 BONE DENSITY BONE DENSITY [facility] Start: 01-29-2020 Bone Density Screening Bone Density Screening [facility] Start: 01-29-2020 Pneumococcal Vaccine : 65+ (1 - PCV) Pneumococcal Vaccine: 65+ (1 - PCV) [facility] Start: 01-29-2020 PNEUMOCOCCAL: 65+ (1 - PCV) PNEUMOCOCCAL: 65+ (1 - PCV) [facility] Start: 01-29-2020 Screening for osteoporosis Bone Dens ity Screening [facility] Start: 10-06-2019 Annual PCP Team Wastewater Treatment Engineer armando Disease Visit Annual PCP Team Chronic Disease Visit [facility] Start: 10-08-2018 BP Controlled (<130/80) BP Controlle d (<130/80) [facility] Start: 06-26-2018 Mammography [facility] Start: 06-26-2018 Screening for malign ant neoplasm of breast Mammogram Screening [facility] Start: 2015 RSV Vaccine (1 - 1-d ose 60+ series) RSV Vaccine (1 - 1-dose 60+ series) [facility] Start: 2005 SHINGRIX VACCINE (1 of 2) SHINGRIX V ACCINE (1 of 2) [facility] Start: 01-29-2000 COLOGUARD (FIT-DNA) COLOGUARD (FIT-D NA) [facility] Start: 01-29-2000 Colonoscopy COLONOSCOPY [facility] Start: 01-29-2000 COLORECTAL CANCER SCREENING COLORECTAL CANCER SCREENING [facility] Start: 01-29-[address] COLONOGRAPHY [facility] Start: 01-29-2000 FECAL OCCULT BLOOD FECAL OCCULT BLOO D [facility] Start: 01-29-2000 Screening for malign ant neoplasm of colon [facility] Start: 01-29-2000 SIGMOIDOSCOPY SIGMOIDOSCOPY [facility] Start: 1974 Shingrix Vaccine (1 of 2) Shingrix V accine (1 of 2) [facility] Start: 1955 COVID-19 VACCINE (#1) COVID-19 VACCI NE (#1) [facility] Immunizations Immunization Date Immunization Notes Care Provider Fa bethany 04-07-2018 influenza virus vacc ine, unspecified formulation Kiran Gifford MD Work Phone: [facility] Payers Date Payer Category Payer Medicare [employer] MEDICARE [employer] MEDICARE PPO [id number] 2020-Present [id number] [place] [address] PPO [id number] 2020 Medicare [id number] 2015 Unknown [id number] Social History Date Type Detail Facility Start: 06-06-2017 End: 12-04-2022 Tobacco smoking status NHIS Never smoked tobacco [facility] Start: 06-06-2017 End: 12-04-2022 Tobacco use and exposure Smokeless tobacco non-user [facility] Start: 10-05-2018 End: 03-05-2023 Alcohol intake Current non-drinker of alcohol (finding) [facility] Start: 10-05-2018 End: 01-29-2023 History of Social function [facility] Start: 10-05-2018 End: 01-29-2023 Tobacco use panel [facility] Adult Depression Scr eening Assessment 0 [facility] Start: 1955 Sex Assigned At Not on file [facility] Medical Equipment Procedure Code Equipment Code Equipment Origin al Text Equipment Identifier Dates Cornea Tissue Pre-Loaded [facility] - [id number] Start: 02-28-2023 Gas [employer] System [id number] - [id number] Start: 02-28-2023 Clinical Notes 11-22-2022 to 03-12-2023 Patient InstructionsKiran Gifford MD - 03/05/2023 11:11 AM ESTPatient InstructionsKiran Gifford MD - 03/01/2023 1:31 PM EST Note Date & Type Note Facility 03-12-2023 Note HNO ID: [id number] Author: Kiran Gifford MD Service: ? Author Type: Physician Type: Progress Notes Filed: 03/12/2023 10:29 AM Note Text: Assessment and Plan 1. Corneal edema, secondary, right 2. 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 Pseudophakia -history of cataract surgery 2020 with symfony lenses both eyes Plan: -prednisolone 4x daily right eye -stop vigamox four times a day right eye -precautions -follow-up 1-2 week / sooner as needed. Suture removal then -back to Dr. Saul afterwards I have confirmed and edited as necessary the relevant ophthalmic history, ROS, and the neuro exam findings as obtained by others. I have seen and examined Anh Ewing. I have discussed the case and the management of this patient's care with the Resident/Fellow, if applicable. I also have reviewed and agree with the assessment and plan as stated above and agree with all of its relevant components. Kiran Gifford MD [facility] 03-05-2023 Note HNO ID: [id number] Author: Kiran Gifford MD Service: ? Author Type: Physician Type: Progress Notes Filed: 03/05/2023 11:12 AM Note Text: Assessment and Plan 1. Corneal edema, secondary, right 2. 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 Pseudophakia -history of cataract surgery 2020 with symfony lenses both eyes Plan: -prednisolone 4x daily right eye -vigamox four times a day right eye -lie flat on back every two hours -precautions -follow-up 1 week / sooner as needed. -back to Dr. Saul afterwards I have confirmed and edited as necessary the relevant ophthalmic history, ROS, and the neuro exam findings as obtained by others. I have seen and examined Anh Ewing. I have discussed the case and the management of this patient's care with the Resident/Fellow, if applicable. I also have reviewed and agree with the assessment and plan as stated above and agree with all of its relevant components. Kiran Gifford MD [facility] 03-05-2023 Instructions Kiran Gifford MD - 03/05/2023 11:12 AM EST -prednisolone 4x daily right eye -vigamox four times a day right eye -lie flat on back every two hours -precautions documented in this encounter [facility] 03-05-2023 History of Presen t illness Narrative Assessment and Plan 1. Corneal edema, secondary, right 2. 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 Pseudophakia -history of cataract surgery 2020 with symfony lenses both eyes Plan: -prednisolone 4x daily right eye -vigamox four times a day right eye -lie flat on back every two hours -precautions -follow-up 1 week / sooner as needed. -back to Dr. Saul afterwards I have confirmed and edited as necessary the relevant ophthalmic history, ROS, and the neuro exam findings as obtained by others. I have seen and examined Anh Ewing. I have discussed the case and the management of this patient's care with the Resident/Fellow, if applicable. I also have reviewed and agree with the assessment and plan as stated above and agree with all of its relevant components. Kiran Gifford MD documented in this encounter [facility] 03-01-2023 Note HNO ID: [id number] Author: Kiran Gifford MD Service: ? Author Type: Physician Type: Progress Notes Filed: 03/01/2023 1:52 PM Note Text: Assessment and Plan 1. Corneal edema, secondary, right 2. 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 Pseudophakia -history of cataract surgery 2020 with symfony lenses both eyes Plan: -prednisolone 8x daily right eye -vigamox four times a day right eye -lie flat on back -precautions -follow-up 1 weeks / sooner as needed. -back to Dr. Saul afterwards I have confirmed and edited as necessary the relevant ophthalmic history, ROS, and the neuro exam findings as obtained by others. I have seen and examined Anh Ewnig. I have discussed the case and the management of this patient's care with the Resident/Fellow, if applicable. I also have reviewed and agree with the assessment and plan as stated above and agree with all of its relevant components. Kiran Gifford MD [facility] 03-01-2023 Instructions Kiran Gifford MD - 03/01/2023 1:32 PM EST Images from the original note were not included. documented in this encounter [facility] 03-01-2023 History of Presen t illness Narrative Assessment and Plan 1. Corneal edema, secondary, right 2. 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 Pseudophakia -history of cataract surgery 2020 with symfony lenses both eyes Plan: -prednisolone 8x daily right eye -vigamox four times a day right eye -lie flat on back -precautions -follow-up 1 weeks / sooner as needed. -back to Dr. Saul afterwards I have confirmed and edited as necessary the relevant ophthalmic history, ROS, and the neuro exam findings as obtained by others. I have seen and examined Anh Ewing. I have discussed the case and the management of this patient's care with the Resident/Fellow, if applicable. I also have reviewed and agree with the assessment and plan as stated above and agree with all of its relevant components. Kiran Gifford MD documented in this encounter [facility] documented as of this encounter (statuses as of 03/01/2023) [facility]12-15-2023 History of Past illness Narrative* Problem Noted Date Diagnosed Date Resolved Date Corneal edema, secondary, right 02/28/2023 02/28/2023 documented as of this encounter (statuses as of 03/06/2023) [facility]11-08-2023 NoteHNO ID: [id number] Author: Kiran Gifford MD Service: ? Author Type: Physician Type: Progress Notes Filed: 01/22/2023 9:36 AM Note Text: Assessment and Plan 1. Corneal edema, secondary, right 2. 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 3. Pseudophakia -history of cataract surgery 2020 with symfony lenses both eyes Plan: -off prednisolone (was not helping) -can stop zirgan and nikolay ointment since limited help -follow-up 2-4 weeks / sooner as needed. -scheduled for Descemet's membrane endothelial keratoplasty (DMEK) right eye - will need to send to path -back to Dr. Saul afterwards -if develops more pain in the meantime, back to Dr. Aguirre for bandage contact lens and antibiotics drops I have confirmed and edited as necessary the relevant ophthalmic history, ROS, and the neuro exam findings as obtained by others. I have seen and examined Anh Ewing. I have discussed the case and the management of this patient's care with the Resident/Fellow, if applicable. I also have reviewed and agree with the assessment and plan as stated above and agree with all of its relevant components. Kiran Gifford, [facility]11-08-2023 Instructions* Patient Instructions* Kiran Gifford MD - 01/22/2023 9:36 AM EST -Tre White (surgical scheduling): [phone] [facility] History of Present illness Narrative* Kiran Gifford MD - 01/22/2023 9:19 AM EST Assessment and Plan 1. Corneal edema, secondary, right 2. 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 3. Pseudophakia -history of cataract surgery 2020 with symfony lenses both eyes Plan: -off prednisolone (was not helping) -can stop zirgan and nikolay ointment since limited help -follow-up 2-4 weeks / sooner as needed. -scheduled for Descemet's membrane endothelial keratoplasty (DMEK) right eye - will need to send richmondath -back to Dr. Saul afterwards -if develops more pain in the meantime, back to Dr. Aguirre for bandage contact lens and antibioticsdrops I have confirmed and edited as necessary the relevant ophthalmic history, ROS, and the neuro exam findings as obtained by others. I have seen and examined Anh Ewing. I have discussed the case and the management of this patient's care with the Resident/Fellow, if applicable. I also have reviewed and agree with the assessment and plan as stated above and agree withall of its relevant components. Kiran Gifford MD [facility] Miscellaneous Notes* Telephone Encounter - Cherise West RN - 01/20/2023 10:06 AM EST Called and relayed Dr. Gifford's message to the patient. She voiced understanding and appreciation for name of what is causing her corneal swelling. Cherise West RN January 20, 2023 10:08 AM * Telephone Encounter - Kiran Gifford MD - 01/20/2023 8:24 AM EST Unlikley. These may causse dry eye by increasing water excretion from the body, but unlikley wsweling. 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 Gifford to advise. Cherise West RN January 16, 2023 4:37 PM * Telephone Encounter - Charlotte Valencia OA - 01/16/2023 3:45 PM EDT Spoke with the patient she stated that she is currently taking hydralazine and hydrochlorothiazide which she is under the care of [facility] to control her hypertension. Patient states she started these medications shortly before she started to experience the eye pain in the right eye. Patient spoke with the [facility] and they advised that she stop taking the hydrochlorothiazide to see if it helps with her eye pain. Patient is wondering if corneal edema in the right eye is a side affect of her hypertension medications. Please advise MARRY Nelson * Telephone Encounter - Goldie Low - 01/16/2023 10:25 AM EDT Patient verified by name and . She has some questions and is asking for a phone call back at [phone]. Review and advise. documented in this encounterC[facility]23 NoteHNO ID: [id number] Author: Kiran Gifford MD Service: ? Author Type: Physician Type: Progress Notes Filed: 01/01/2023 3:59 PM Note Text: Assessment and Plan 1. Corneal edema, secondary, right 2. 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 3. Pseudophakia -history of cataract surgery 2020 with symfony lenses both eyes Plan: -off prednisolone (was not helping) -zirgan 5x daily right eye (helps! Ointment effect vs viral) -nikolay ointment at bedtime right eye -follow-up 2 weeks / sooner as needed. -order placed for Descemet's membrane endothelial keratoplasty (DMEK) right eye - will need to send to path -back to Dr. Saul afterwards -if develops more pain in the meantime, back to Dr. Aguirre for bandage contact lens and antibiotics drops I have confirmed and edited as necessary the relevant ophthalmic history, ROS, and the neuro exam findings as obtained by others. I have seen and examined Anh Ewing. I have discussed the case and the management of this patient's care with the Resident/Fellow, if applicable. I also have reviewed and agree with the assessment and plan as stated above and agree with all of its relevant components. Kiran Gifford, [facility]10-18-2023 History of Present illness Narrative* Kiran Gifford MD - 01/01/2023 3:54 PM EDT Assessment and Plan 1. Corneal edema, secondary, right 2. 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 3. Pseudophakia -history of cataract surgery 2020 with symfony lenses both eyes Plan: -off prednisolone (was not helping) -zirgan 5x daily right eye (helps! Ointment effect vs viral) -nikolay ointment at bedtime right eye -follow-up 2 weeks / sooner as needed. -order placed for Descemet's membrane endothelial keratoplasty (DMEK) right eye - will need to sendto path -back to Dr. Saul afterwards -if develops more pain in the meantime, back to Dr. Aguirre for bandage contact lens and antibioticsdrops I have confirmed and edited as necessary the relevant ophthalmic history, ROS, and the neuro exam findings as obtained by others. I have seen and examined Anh Ewing. I have discussed the case and the management of this patient's care with the Resident/Fellow, if applicable. I also have reviewed and agree with the assessment and plan as stated above and agree withall of its relevant components. Kiran Gifford MD documented [facility] Miscellaneous Notes* Telephone Encounter - Mehran HeshamAbbi - 12/27/2022 10:59 AM EDT Ptient called wanting to let you know she is having carpel tunnel surgery on 01/07 and didn't know if it would affect her eyes.Abbi Georgetheresa Pss documented in this encounterC[facility]09-27-[facility]23 NoteHNO ID: [id number] Author: Kiran Gifford MD Service: ? Author Type: Physician Type: Progress Notes Filed: 12/11/2022 5:37 PM Note Text: Assessment and Plan 1. Corneal edema, secondary, right 2. 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 3. Pseudophakia -history of cataract surgery 2020 with symfony lenses both eyes Plan: -prednisolone four times a day right eye x 1 week then twice a day -zirgan 5x daily right eye -nikolay ointment at bedtime right eye -follow-up 2 weeks / sooner as needed. -order placed for Descemet's membrane endothelial keratoplasty (DMEK) right eye - will need to -back to Dr. Saul afterwards -if develops more pain in the meantime, back to Dr. Aguirre for bandage contact lens and antibiotics drops I have confirmed and edited as necessary the relevant ophthalmic history, ROS, and the neuro exam findings as obtained by others. I have seen and examined Anh Ewing. I have discussed the case and the management of this patient's care with the Resident/Fellow, if applicable. I also have reviewed and agree with the assessment and plan as stated above and agree with all of its relevant components. Kiran Gifford, [facility]09-20-2023 NoteHNO ID: [id number] Author: Kiran Gifford MD Service: ? Author Type: Physician Type: Progress Notes Filed: 12/04/2022 9:30 AM Note Text: Assessment and Plan 1. Corneal edema, secondary, right 2. 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 3. Pseudophakia -history of cataract surgery 2020 with symfony lenses both eyes Plan: -prednisolone four times a day right eye x 2 week then twice a day -nikolay ointment at bedtime right eye -stop valtrex -follow-up 3-4 weeks / sooner as needed. If not better in 2-3 months, to consider Descemet's membrane endothelial keratoplasty (DMEK) right eye -back to Dr. Saul afterwards I have confirmed and edited as necessary the relevant ophthalmic history, ROS, and the neuro exam findings as obtained by others. I have seen and examined Anh Ewing. I have discussed the case and the management of this patient's care with the Resident/Fellow, if applicable. I also have reviewed and agree with the assessment and plan as stated above and agree with all of its relevant components. Kiran Gifford MD December 04, 2022 9:09 [facility]09-08-2023 Miscellaneous Notes* Telephone Encounter - Charlotte Valencia OA - 11/22/2022 3:45 PM EDT Spoke with Randee brar at the [facility] [place] regarding this patient's referral to Dr. Gifford. She stated that the patient is scheduled to see one of their providers on Friday11/25/2022 for a follow up. Patient is scheduled to then follow up with Dr. Gifford for a consult on 12/04/2022. This patient has also been added to the wait list for a cancellation. Please advise MARRY Nelson documented in this encounterC[facility]Evaluation note* Diagnosis Corneal edema, secondary, right- Primary Corneal scar, right eye Corneal opacity, unspecified Pseudophakia Lens replaced by other means Corneal edema, secondary, right documented in this encounter [facility]* Diagnosis Corneal edema, secondary, right- Primary Corneal scar, right eye Corneal opacity, unspecified Pseudophakia Lens replaced by other means Corneal edema, secondary, right documented [facility] this encounter [facility]* Diagnosis Status post corneal transplant- Primary Cornea replaced by transplant documented in this encounter [facility] Summary Purpose Family History No Family History Records FoundNo Family History Records FoundNo Family History Records Found Advance Directives No Advanced Directives Records FoundNo Advanced Directives Records FoundNo Advanced Directives Records Found Additional Source Comments INFORMATION SOURCE (unrecogn ized section and content) DATE CREATED AUTHOR AUTHOR'S ORGANIZ ATION 09/08/2017 [facility] [place] DATE CREATED AUTHOR AUTHOR'S ORGANIZ ATION 03/30/2023 [facility] Source Comments (unrecognize d section and content) In the event this informatio n is protected by the Federal Confidentiality of Alcohol and Drug Abuse Patient Records regulations: The Federal rules restrict any use of the information to criminally investigate or prosecute any alcohol or drug abuse patient.[facility] RehabilitationIn the event this information is protected by the Federal Confidentiality of Alcohol and Drug Abuse Patient Records regulations: The Federal rules restrict any use of the information to criminally investigate or prosecute any alcohol or drug abuse patient.[facility] RehabilitationIn the event this information is protected by the Federal Confidentiality of Alcohol and Drug Abuse Patient Records regulations: The Federal rules restrict any use of the information to criminally investigate or prosecute any alcohol or drug abuse patient.[facility] RehabilitationIn the event this information is protected by the Federal Confidentiality of Alcohol and Drug Abuse Patient Records regulations: The Federal rules restrict any use of the information to criminally investigate or prosecute any alcohol or drug abuse patient.[facility] RehabilitationIn the event this information is protected by the Federal Confidentiality of Alcohol and Drug Abuse Patient Records regulations: The Federal rules restrict any use of the information to criminally investigate or prosecute any alcohol or drug abuse patient.[facility] RehabilitationIn the event this information is protected by the Federal Confidentiality of Alcohol and Drug Abuse Patient Records regulations: The Federal rules restrict any use of the information to criminally investigate or prosecute any alcohol or drug abuse patient.[facility] RehabilitationIn the event this information is protected by the Federal Confidentiality of Alcohol and Drug Abuse Patient Records regulations: The Federal rules restrict any use of the information to criminally investigate or prosecute any alcohol or drug abuse patient.[facility] Reason for Visit (unrecogniz ed section and content) Reason Comments Corneal Edema Follow Up Reason Comments Patient Question Reason Comments Post-op (Ophthalmology) Right Eye Care Teams (unrecognized sec tion and content) Server Software Engineer Relationship Specialty Start Date End Date Madan Velásquez MD [address] [place] [address] PCP - General Internal Medicine 07/04/20 Server Software Engineer Relationship Specialty Start Date End Date Madan Velásquez MD [address] [place] [address] PCP - General Internal Medicine 07/04/20 Server Software Engineer Relationship Specialty Start Date End Date Madan Velásquez MD [address] [place] [address] PCP - General Internal Medicine 07/04/20 Server Software Engineer Relationship Specialty Start Date End Date Madan Velásquez MD [address] [place] [address] PCP - General Internal Medicine 07/04/20 Server Software Engineer Relationship Specialty Start Date End Date Madan Velásquez MD [address] [place] [address] PCP - General Internal Medicine 07/04/20 FOR RECORDS PERTAINING TO PATIENTS WHO ARE OR HAVE BEEN ENROLLED IN A CHEMICAL DEPENDENCY/SUBSTANCEABUSE PROGRAM, SOME INFORMATION MAY BE OMITTED. This clinical summary was aggregated from multiple sources. Caution should be exercised in using it in the provision of clinical care. This summary normalizes information from multiple sources, and as a consequence, information in this document may materially change the coding, format and clinical context of patient data. In addition, data may be omitted in some cases. CLINICAL DECISIONS SHOULD BE BASED ON THE PRIMARY CLINICAL RECORDS. [employer] [facility]. provides no warranty or guarantee of the accuracy or completeness of information in this document.
[2023-04-03 12:06] LABS: Absolute Lymphocyte Count 2.15 X10^3/uL (0.83-4.51); Absolute Neutrophil Count 7.8 X10^3/uL (2.0-7.7); Basophil# 0.06 X10^3/uL; Basophil% 0.5 % (0-1); Eosinophil# 0.05 X10^3/uL; Eosinophils% 0.4 % (0-5); Hemoglobin 11.6 g/dL (12.0-15.0); Lymphocyte # 2.15 X10^3/ul (0.83-4.51); Lymphocyte % 18.9 % (19-41); Mean Corp Hgb Conc 31.4 g/dL (32-36); Mean Corpuscular Hgb 28.2 pg (27.0-32.0); Mean Platelet Vol. 9.5 fl (6.2-12.0); Monocyte# 1.28 X10^3/uL; Monocyte% 11.2 % (0-10); NRBC Flagged by Analyzer 0 % (0-5); Neutrophil # 7.81 X10^3/uL (2.7-7.7); Neutrophil % 68.6 % (47-70); Platelet Count 153 K/mm3 (150-450); RBC Distribution Width CV 14.7 % (11.6-14.6); RBC Distribution Width SD 47.5 fl (35.1-43.9); Red Blood Count 4.11 M/mm3 (4.2-5.4); White Blood Count 11.4 K/mm3 (4.4-11.0)
[2023-04-03 12:33] LABS: Anion Gap 5 (5-15); BUN 25 mg/dL (7-18); BUN/Creat Ratio 19.2 RATIO (10-20); Calcium,Total 10.8 mg/dL (8.5-10.1); Chloride 108 mmol/L (98-107); EST Glomerular Filtration Rate 43 mL/min (>60); Est Glom Filt Rate - Afr Amer 52 mL/min (>60); Glucose 113 mg/dL (74-106); Potassium 3.5 mmol/L (3.5-5.1); Sodium Level 139 mmol/L (136-145)
[2023-04-03 12:37] LABS: BNP,B-Type NATRIURETIC PEPTIDE 338.1 pg/mL (0-100)
== END | disposition home or self-care (01) ==
LOC: RAD 09:42
PROVIDERS: PCP Internal Medicine; Referring Provider Internal Medicine Cardiovascular Disease; Visit Provider Internal Medicine Cardiovascular Disease
DX: Z01.818 Encounter for other preprocedural examination (principal); R00.1 Bradycardia, unspecified; I10 Essential (primary) hypertension; E78.2 Mixed hyperlipidemia; R06.09 Other forms of dyspnea
CPT/HCPCS: 71046; 80048; 83880; 85025

== ENCOUNTER 2023-04-06 09:25 | Inpatient (IN) | payer MEDICARE, SELFPAY ==
[2023-04-06] VITALS (11 sets, daily range): BP systolic 104–156; BP diastolic 59–78; PULSE 70–89; RESP 14–30; TEMP 36.7–37.4; O2SAT 87–97; BMI 47.2; BMI 46.8
--- NOTE | 2023-04-06 09:40 | RAD_ITS ---
EXAM: XR CHEST, 1 VIEW CLINICAL INDICATION: dyspnea TECHNIQUE: Frontal view of the chest. COMPARISON: XR Chest dated 04/03/2023 FINDINGS: LUNGS AND PLEURAL SPACES: Increasing airspace opacification of the right lower lobe suggestive of pneumonia. Small right pleural effusion. HEART: Normal heart size. MEDIASTINUM: No mediastinal or hilar mass. BONES/JOINTS: Stable scoliosis of the thoracolumbar spine. RAD/Chest 1 View (Portable) IMPRESSION: Increasing airspace opacification of the right lower lobe consistent with pneumonia with small right parapneumonic effusion. Electronically Signed: Jacques Topete MD at 11:01 EST ,
--- NOTE | 2023-04-06 09:42 | EDS_ITS ---
HPI History of Present Illness Chief Complaint: Shortness of Breath Detail of Chief Complaint: Shortness of breath Informant: patient Narrative Narrative: Patient presents to the emergency department complaint of shortness of breath has been going on for about 5 days. Patient had a visit with biomaterials engineer and seeing them for the first time about 5 days ago. Patient had blood work and a chest x-ray at that time. Patient has history of hypertension and high cholesterol. No history of COPD or emphysema. No history of heart failure. Patient describes exertional dyspnea. She describes orthopnea and has been sleeping in a recliner for the last 3 days. Denies significant weight gain. She had a slight cough. Denies recent travel or surgery. No history of PE or DVT. No history of CHF. Patient denies chest pain. [facility] Medical History Adrenal nodule Anemia Arthritis Asthma Bilateral foot pain Bradycardia Carpal tunnel syndrome, right CKD (chronic kidney disease), stage III Essential hypertension GERD (gastroesophageal reflux disease) Gout Health care maintenance History of pneumonia Mixed hyperlipidemia Morbid obesity with BMI of 45.0-49.9, adult Osteoarthritis Preoperative evaluation to rule out surgical contraindication Right foot pain Thyroid nodule Home Medications betamethasone dipropionate 0.05 % topical cream 1 applic topical DAILY PRN skin 04/12/19 [History Last Taken Unknown] Handicap Placard #1 ea 12/20/19 [Rx Last Taken Unknown] calcium carbonate 500 mg calcium (1,250 mg) tablet 500 mg PO DAILY 12/28/19 [History Last Taken Unknown] cholecalciferol (vitamin D3) 25 mcg (1,000 unit) tablet 1,000 unit PO DAILY 12/28/19 [History Last Taken Unknown] acetaminophen 325 mg capsule (Tylenol) 325 mg PO ONCE PRN fever or pain 01/28/20 [History Last Taken Unknown] vibegron 75 mg tablet (Gemtesa) 75 mg PO DAILY 01/31/21 [History Last Taken Unknown] simvastatin 20 mg tablet 20 mg PO QHS #90 tabs 06/14/22 [Rx Last Taken Unknown] hydrochlorothiazide 25 mg tablet 25 mg PO DAILY #90 tabs 09/18/22 [Rx Last Taken Unknown] atenolol 50 mg tablet 50 mg PO DAILY #90 tabs 10/21/22 [Rx Last Taken Unknown] tramadol 50 mg tablet 50 mg PO Q6H PRN pain 11/13/22 [History Last Taken Unknown] valsartan 320 mg tablet 320 mg PO DAILY #90 tabs 11/13/22 [Rx Last Taken Unknown] Handicap Placard #1 ea 11/21/22 [Rx Last Taken Unknown] fenofibrate 54 mg tablet 54 mg PO DAILY #90 tabs 03/18/23 [Rx Last Taken Unknown] leflunomide 20 mg tablet 20 mg PO DAILY 04/03/23 [History Last Taken Unknown] prednisolone acetate 1 % eye drops,suspension 1 drp ophthalmic (eye) TID 04/03/23 [History Last Taken Unknown] Allergy/AdvReac Type Severity Reaction Status Date / Time Sulfa (Sulfonamide Allergy Unknown Unknown Verified 04/06/23 09:27 Antibiotics) hydroxychloroquine Allergy Hives Verified 04/06/23 09:27 amlodipine AdvReac Intermediate Foot and Verified 04/06/23 09:27 ankle swelling Family History Brother Sudden cardiac , Onset Age: 50 Mother Heart disease Father Heart disease Surgical History History of cataract surgery History of cholecystectomy History of tubal ligation uterine ablation Social History Smoking Status: Never smoker alcohol intake: never substance use type: does not use caffeine: Yes Type: coffee Number of servings: 2 ROS ROS ED Review of Systems ROS Unobtainable: other Constitutional Constitutional ED: Reports lethargy; Denies chills, fever(s), sweats or weight loss Eyes Eyes: Denies blurry vision, change in vision or diplopia ENT ENT ED: Denies rhinorrhea or sore throat Cardiovascular Cardiovascular: Denies chest pain, orthopnea or racing heartbeat Respiratory/Chest Respiratory/Chest: Reports cough, dyspnea and dyspnea on exertion; Denies orthopnea or sputum Gastrointestinal Gastrointestinal: Denies abdominal pain, diarrhea, nausea or vomiting Genitourinary Genitourinary ED: Denies dysuria, hematuria or urinary frequency Musculoskeletal Musculoskeletal: Denies arthralgias, back pain, myalgias or neck pain Integumentary Denies abscess, Abrasions or rash Neurologic Neurologic: Reports weakness; Denies headache(s) Psychiatric Psychiatric: Denies anxiety, depression or suicidal thoughts Endocrine Endocrinology: Denies polydipsia, polyphagia or polyuria Hematologic/Lymphatic Hematologic/Lymphatic: Denies easy bleeding, easy bruising or lymphadenopathy Allergic/Immunologic Allergic/Immunologic ED: Denies mouth swelling, tongue swelling or urticaria EXAM Physical Exam Const Vital Signs: 04/06/23 09:25 04/06/23 09:54 04/06/23 09:51 Temperature 98.1 F Temperature Source Temporal Pulse Rate 89 76 78 Respiratory Rate 14 16 16 Blood Pressure 156/71 H Blood Pressure Mean 99 Pulse Ox 96 96 Oxygen Delivery Method Room Air Room Air Oxygen Flow Rate (L/min) Fraction of Inspired Oxygen (FIO2) 04/06/23 09:51 04/06/23 09:52 04/06/23 11:00 Temperature Temperature Source Pulse Rate Respiratory Rate 30 H Blood Pressure Blood Pressure Mean Pulse Ox 87 97 Oxygen Delivery Method Room Air Nasal Cannula Oxygen Flow Rate (L/min) 2 Fraction of Inspired Oxygen (FIO2) 98 04/06/23 11:02 Temperature Temperature Source Pulse Rate 77 Respiratory Rate 14 Blood Pressure 111/59 L Blood Pressure Mean 75 Pulse Ox 97 Oxygen Delivery Method Oxygen Flow Rate (L/min) Fraction of Inspired Oxygen (FIO2) Positive well nourished and well developed General Appearance ED: well developed and NAD HEENT Reports TM's clear and moist mucous membranes normocephalic and atraumatic; Negative for trauma or tenderness Tympanic Membrane ED: Yes TM's clear Eyes PERRL and EOMs intact bilaterally General Eye ED: Negative for pale conjunctiva or scleral icterus Neck no lymphadenopathy, supple and no JVD General: Negative for tenderness Chest Wall inspection of chest normal and palpation of chest normal Chest: Negative for tenderness Resp No normal respiratory effort and No clear to auscultation bilaterally Resp Narrative: Patient has tachypnea and conversational dyspnea Effort and Inspection: Negative for respiratory distress or pain with movement Auscultation: wheezes; Negative for rhonchi or diminished lung sounds Cardio regular rate, regular rhythm, S1 normal heart sound, S2 normal heart sound and no murmurs Peripheral Pulses: pulses 2+ throughout GI normal to inspection, nondistended, normoactive bowel sounds, soft to palpation, non-tender, non-distended and no masses Back/Spine no CVA tenderness and no thoracic nor lumbar tenderness Extremity normal to inspection General Extremety ED: Negative for edema General Extremity: Negative for edema Neuro oriented x3, CN's II-XII intact bilaterally, no sensory deficits noted and gait normal Sensorium / Orientation: awake, alert, oriented to person, oriented to place and oriented to time Motor Exam: strength 5/5 throughout and strength abnormal Psych mental status grossly normal Skin no rashes or lesions noted and no wounds MDM MDM MDM Narrative Medical decision making narrative: Patient presents to the emergency department with dyspnea and exertional symptoms. Also symptoms of CHF with orthopnea and conversational dyspnea. IV line established. EKG obtained showed a sinus rhythm with a ventricular rate of [address] changes. CBC with differential showed a white count of 14.9 with hemoglobin 11.8 and platelet count of 209. Chemistries unremarkable. D-dimer was elevated 7.15. Chemistries unremarkable. BUN 25 and creatinine 1.67. Troponin was elevated at 122. BNP was elevated at 580. CTA of the chest ordered to rule out PE with heart strain. Official report from radiology pending however on my interpretation it does appear she has bilateral PEs. I did order heparin drip. Will discuss with hospitalist to evaluate for admission. Suspect symptoms related to PE rather than acute coronary syndrome at this point. Lab Data Attestation: I reviewed the patient's lab results. Labs: Laboratory Results - last 24 hr 04/06/23 09:47 WBC 14.9 H RBC 4.02 L Hgb 11.8 L Hct 35.9 L MCV 89.3 MCH 29.4 MCHC 32.9 RDW Std Deviation 47.7 H RDW Coeff of Liss 14.7 H Plt Count 209 MPV 9.3 Immature Gran % (Auto) 0.500 Neut % (Auto) 78.5 H Lymph % (Auto) 9.9 L [place] % (Auto) 10.8 H Eos % (Auto) 0.0 Baso % (Auto) 0.3 Absolute Neuts (auto) 11.7 H Absolute Lymphs (auto) 1.48 Nucleated RBC % 0 Differential Comment SCANNED Diff Path Review July foll PT 16.9 H INR 1.4 APTT 35.6 D-Dimer Quant (PE/DVT) 7.15 H* Sodium 134 L Potassium 3.5 Chloride 100 Carbon Dioxide 25.0 Anion Gap 9 BUN 25 H Creatinine 1.67 H Estim Creat Clear Calc 42.11 Est GFR (MDRD) Af Amer 39 L Est GFR (MDRD) Non-Af 32 L BUN/Creatinine Ratio 15.0 Glucose 136 H Calcium 10.7 H Troponin I High Sens 122 H* B-Natriuretic Peptide 580.7 H Radiography Diagnostic Testing: Clinical Impression(s) from Imaging Studies Chest X-Ray 04/06/23 09:40 IMPRESSION: Increasing airspace opacification of the right lower lobe consistent with pneumonia with small right parapneumonic effusion. Electronically Signed: Jacques Topete MD at 11:01 EST , Chest CTA 04/06/23 10:32 IMPRESSION: 1. Extensive bilateral pulmonary embolism with saddle embolus component. 2. Right heart strain. 3. Right lower lobe pneumonia with small parapneumonic effusion. N.B. : The above Results were Read Back by Jacques Topete MD to Arlene Acevedo DO, and understanding confirmed on 04/06/2023 11:48:19 (ET). Electronically Signed: Jacques Topete MD at 11:49 EST , ADDENDUM: 04/06/23 1156 IMPRESSION: 1. Extensive bilateral pulmonary embolism with saddle embolus component. 2. Right heart strain. 3. Right lower lobe pneumonia with small parapneumonic effusion. N.B. : The above Results were Read Back by Jacques Topete MD to Arlene Acevedo DO, and understanding confirmed on 04/06/2023 11:48:19 (ET). Electronically Signed: Jacques Topete MD at 11:49 EST , ADDENDUM: 04/06/23 1257 IMPRESSION: undefined 1 view chest x-ray obtained interpreted by myself as increased markings of the right lower lobe concerning for infiltrate versus pulmonary congestion. Radiology in agreement felt likely related to pneumonia. EKG Initial EKG: Attestation: I personally reviewed and interpreted this EKG as follows: Comments: Sinus rhythm with rate of [address] changes Discharge Plan Dx/Rx/DC Orders Clinical Impression: Hypoxemia, Dyspnea, Respiratory failure, Elevated troponin, Pulmonary emboli Disposition Disposition: Acute Care Hospital [facility] Discharge Date/Time: 04/06/23 11:50
--- NOTE | 2023-04-06 09:47 | ED.RN ---
NO OLD EKG
[2023-04-06] MEDS: Ipratropium/Albuterol Sulfate 3 ML AMPUL.NEB INHALATION (09:49)
[2023-04-06 09:59] LABS: Absolute Lymphocyte Count 1.48 X10^3/uL (0.83-4.51); Absolute Neutrophil Count 11.7 X10^3/uL (2.0-7.7); Basophil# 0.04 X10^3/uL; Basophil% 0.3 % (0-1); Hematocrit 35.9 % (37-47); Hemoglobin 11.8 g/dL (12.0-15.0); Lymphocyte # 1.48 X10^3/ul (0.83-4.51); Lymphocyte % 9.9 % (19-41); Mean Corp Hgb Conc 32.9 g/dL (32-36); Mean Corpuscular Hgb 29.4 pg (27.0-32.0); Mean Corpuscular Volume 89.3 fL (81-99); Mean Platelet Vol. 9.3 fl (6.2-12.0); Monocyte# 1.61 X10^3/uL; Monocyte% 10.8 % (0-10); NRBC Flagged by Analyzer 0 % (0-5); Neutrophil # 11.72 X10^3/uL (2.7-7.7); Neutrophil % 78.5 % (47-70); POSITIVE DIFFERENTIAL YES; Platelet Count 209 K/mm3 (150-450); RBC Distribution Width CV 14.7 % (11.6-14.6); RBC Distribution Width SD 47.7 fl (35.1-43.9); Red Blood Count 4.02 M/mm3 (4.2-5.4); White Blood Count 14.9 K/mm3 (4.4-11.0)
--- OUTSIDE RECORDS SUMMARY | 2023-04-06 10:01 | XMS RPT_ITS | CCD ---
Author Name Unknown Address [address] [place] [address] Organization [facility] Care Team Providers Care Scrap Wheeler Name Role Phone Santos, Ulcy L. Unavailable Unavailable Santos, Lucy L. Unavailable Unavailable Santos, Lucy L. Unavailable Unavailable Santos, Lucy L. Unavailable Unavailable Santos, Lucy L. Unavailable Unavailable Santos, Lucy L. Unavailable Unavailable Santos, Lucy L. Unavailable Unavailable Santos, Lucy L. Unavailable Unavailable Madan Velásquez MD Primary Care Provider OLEGHE, EFEWONGBE B Primary Care Unavailable KIRAN [...] Unavailable OLEGHE, EFEWONGBE B Primary Care Unavailable Allergies Allergy Classification Reported Allergen(s) Allergy Type Date of Onset Reaction(s) Facility (8 sources) Sulfonamides (Antibiotic); Translations: [SULFA (SULFONAMIDE ANTIBIOTICS)] [facility] amLODIPine; Translations: [AMLODIPINE] Drug Allergy 3 Swelling [facility] (7 sources) Hydroxychloroquin e; Translations: [HYDROXYCHLOROQUI NE] Drug Allergy 3 [facility] Medications Current Medications Medication Drug Class(es) Dates [...] Date Encounter Type Care Provider Facility Start: 04-02-2023 End: 04-02-2023 ambulatory [facility] Facility:[facility] Start: 03-12-2023 End: 03-12-2023 ambulatory [facility] Facility:[facility] Start: 03-05-2023 End: 03-05-2023 ambulatory [facility] Facility:[facility] Start: 03-05-2023 End: 03-05-2023 Patient encounter procedure [...] Detail Author Start: 10-09-2027 Urine microalbumin profile [facility] Start: 11-15-2022 Covid-19 Vaccine ( season) Covid-19 Vaccine ( season) [facility] Start: 11-15-2022 Influenza vaccination C [facility] Start: 10-08-2022 Lipid 1996 panel - S michael or Plasma Lipid Screening [facility] Start: 10-08-2022 Lipid panel Lipid Screening [facility] Start: 10-08-2022 LIPID SCREEN LIPID SCREEN [facility] Start: 03-17-2022 ADVANCE DIRECTIVE DISCUSSION ADVANCE DIRECTIVE DISCUSSION [facility] Start: 03-17-2022 DEPRESSION ASSESSMENT DEPRESSION ASS ESSMENT [facility] Start: 01-31-2022 Pneumococcal Vaccine : 65+ (2 - PPSV23 or PCV20) Pneumococcal Vaccine: 65+ (2 - PPSV23 or PCV20) [facility] Start: 03-31-2021 DIABETES SCREEN DI[facility]CREEN [facility] Start: 03-31-2021 Diabetes Screening Diabetes Screenin g [facility] Start: 03-28-2021 Pneumococcal Vaccine : 65+ (2 of 2 - PPSV23 or PCV20) Pneumococcal Vaccine: 65+ (2 of 2 - PPSV23 or PCV20) [facility] Start: 05-16-2020 Colonoscopy Colonoscopy [facility] Start: 05-16-2020 Colorectal Cancer Screening Colorectal Cancer Screening [facility] Start: 05-16-2020 Screening for malign ant neoplasm of colon [facility] Start: 01-29-2020 BONE DENSITY BONE DENSITY [facility] Start: 01-29-2020 Bone Density Screening Bone Density Screening [facility] Start: 01-29-2020 Pneumococcal Vaccine : 65+ (1 - PCV) Pneumococcal Vaccine: 65+ (1 - PCV) [facility] Start: 01-29-2020 PNEUMOCOCCAL: 65+ (1 - PCV) PNEUMOCOCCAL: 65+ (1 - PCV) [facility] Start: 01-29-2020 Screening for osteoporosis Bone Dens ity Screening [facility] Start: 10-06-2019 Annual PCP Team [employer] Disease Visit Annual PCP Team Chronic Disease Visit [facility] Start: 10-08-2018 BP Controlled (<130/80) BP Controlle d (<130/80) [facility] Start: 06-26-2018 Mammography [facility] Start: 06-26-2018 Screening for malign ant neoplasm of breast Mammogram Screening [facility] Start: 2015 RSV Vaccine (1 - 1-d ose 60+ series) RSV Vaccine (1 - 1-dose 60+ series) [facility] Start: 2005 SHINGRIX VACCINE (1 of 2) SHINGRIX V ACCINE (1 of 2) [facility] Start: 01-29-2000 COLOGUARD (FIT-DNA) COLOGUARD (FIT-D NA) [facility] Start: 01-29-2000 Colonoscopy COLONOSCOPY [facility] Start: 01-29-2000 COLORECTAL CANCER SCREENING COLORECTAL CANCER SCREENING [facility] Start: 01-29-[address] COLONOGRAPHY [facility] Start: 01-29-2000 FECAL OCCULT BLOOD FECAL OCCULT BLOO D [facility] Start: 01-29-2000 Screening for malign ant neoplasm of colon [facility] Start: 01-29-2000 [facility]OSCOPY [facility] Start: 1974 Shingrix Vaccine (1 of 2) Shingrix V accine (1 of 2) [facility] Start: 1955 COVID-19 VACCINE (#1) COVID-19 VACCI NE (#1) [facility] Immunizations Immunization Date Immunization Notes Care Provider Fa cility 04-07-2018 influenza virus vacc ine, unspecified formulation Kiran Gifford MD Work Phone: [facility] Payers Date Payer Category Payer Medicare [employer] MEDICARE [employer] MEDICARE PPO [id number] 2020-Present [phone] [place] [address] PPO [id number] 2020 Medicare [id number] 2015 Unknown [id number] Social History Date Type Detail Facility Start: 06-06-2017 End: 12-04-2022 Tobacco smoking status NHIS Never smoked tobacco [facility] Start: 06-06-2017 End: 12-04-2022 Tobacco use and exposure Smokeless tobacco non-user [facility] Start: 10-05-2018 End: 03-05-2023 Alcohol intake Current non-drinker of alcohol (finding) [facility] Start: 10-05-2018 End: 01-29-2023 History of Social function [facility] Start: 10-05-2018 End: 01-29-2023 Tobacco use panel [facility] Adult Depression Scr eening Assessment 0 [facility] Start: 1955 Sex Assigned At Not on file C [facility] Medical Equipment Procedure Code Equipment Code Equipment Origin al Text Equipment Identifier Dates Cornea Tissue Pre-Loaded [id number] - [id number] Start: 02-28-2023 Gas [employer] Intraocular [employer] System [id number] - [id number] Start: 02-28-2023 Clinical Notes 11-22-2022 to 04-02-2023 Patient InstructionsKiran Gifford MD - 03/05/2023 11:11 AM ESTPatient InstructionsKiran Gifford MD - 03/01/2023 1:31 PM EST Note Date & Type Note Facility 04-02-2023 Note HNO ID: [id number] Author: KIRAN GIFFORD MD Service: ? Author Type: Physician Type: Progress Notes Filed: 04/02/2023 13:42 Note Text: Assessment and Plan 1. Corneal [...] 2020 with symfony lenses both eyes Plan: -suture removed -prednisolone three times a day right eye for 1 month then twice a day -moxifloxacin three times a day right eye for 3 days then stop -precautions -follow-up 1-2 month with refraction / sooner as needed. -back to Dr. [...] of its relevant components. Kiran Gifford MD [facility] 03-12-2023 Note HNO ID: [id number] Author: Kiran Gifford MD Service: ? Author [...] of its relevant components. Kiran Gifford MD [facility] 03-05-2023 Note HNO ID: [id number] Author: Kiran Gifford MD Service: ? Author [...] of its relevant components. Kiran Gifford MD [facility] 03-05-2023 Instructions Kiran Gifford MD - 03/05/2023 11:12 AM EST -prednisolone 4x daily right eye -vigamox four times a day right eye -lie flat on back every two hours -precautions documented in this encounter [facility] 03-05-2023 History of Presen t illness Narrative [...] Kiran Gifford MD documented in this encounter [facility] 03-01-2023 Note HNO ID: [id number] Author: Kiran Gifford MD Service: ? Author [...] of its relevant components. Kiran Gifford MD [facility] 03-01-2023 Instructions Kiran Gifford MD - 03/01/2023 1:32 PM EST Images from the original note were not included. documented in this encounter [facility] 03-01-2023 History of Presen t illness Narrative [...] / sooner as needed. -back to Dr. Salu afterwards I have confirmed and edited as [...] Kiran Gifford MD documented in this encounter [facility] documented as of this encounter (statuses as of 03/01/2023) [facility]12-15-2023 History of Past illness Narrative* Problem Noted Date Diagnosed Date Resolved Date Corneal edema, secondary, right 02/28/2023 02/28/2023 documented as of this encounter (statuses as of 03/06/2023) [facility]11-08-2023 NoteHNO ID: [id number] Author: Kiran Gifford MD Service: ? Author [...] all of its relevant components. Kiran Gifford, [facility]11-08-2023 Instructions* Patient Instructions* Kiran Gifford MD - 01/22/2023 9:36 AM EST -Tre White (surgical scheduling): [phone] documented [facility] History of Present illness Narrative* Kiran Gifford [...] right eye - will need to send topath -back to Dr. Saul afterwards -if develops [...] components. Kiran Gifford MD [facility]23 Miscellaneous Notes* Telephone Encounter - Cherise West [...] which she is under the care of [facility] to control her hypertension. Patient states she started these medications shortly before she started to experience the eye pain in the right eye. Patient spoke with the [facility] and they advised that she [...] asking for a phone call back at [phone]. Review and advise. [facility]2023 NoteHNO ID: [id number] Author: Kiran Gifford MD Service: ? Author [...] all of its relevant components. Kiran Gifford, [facility]10-18-2023 History of Present illness Narrative* Kiran Gifford [...] components. Kiran Gifford MD [facility]23 Miscellaneous Notes* Telephone Encounter - Abbi Cole - 12/27/2022 10:59 AM EDT Ptient called wanting to let you know she is having carpel tunnel surgery on 01/07 and didn't know if it would affect her eyes.Abbi Dahl documented in [facility]-27-2023 NoteHNO ID: [id number] Author: Kiran Gifford MD Service: ? Author [...] all of its relevant components. Kiran Gifford, [facility]09-20-2023 NoteHNO ID: [id number] Author: Kiran Gifford MD Service: ? Author [...] others. I have seen and examined Anh E Gildardo. I have discussed the case and the management of this patient's care with the Resident/Fellow, if applicable. I also have reviewed and agree with the assessment and plan as stated above and agree with all of its relevant components. Kiran Gifford MD December 04, 2022 9:09 [facility]09-08-2023 Miscellaneous Notes* Telephone Encounter - Charlotte Valencia OA - 11/22/2022 3:45 PM EDT Spoke with Randee brar at the [facility] regarding this patient's referral to Dr. Gifford. She stated that the patient is scheduled to see one of their providers on Friday11/25/2022 for a follow up. Patient is scheduled to then follow up with Dr. Gifford for a consult on 12/04/2022. This patient has also been added to the wait list for a cancellation. Please advise MARRY Nelson documented in this encounter[facility]* Diagnosis Corneal edema, secondary, right- Primary Corneal scar, right eye Corneal opacity, unspecified Pseudophakia Lens replaced by other means Corneal edema, secondary, right [facility] Diagnosis Corneal edema, secondary, right- Primary Corneal scar, right eye Corneal opacity, unspecified Pseudophakia Lens replaced by other means Corneal edema, secondary, right [facility] this [facility]* Diagnosis Status post corneal transplant- Primary Cornea replaced by transplant documented in this encounter [facility] Summary Purpose Family History No Family History Records FoundNo Family History Records FoundNo Family History Records Found Advance Directives No Advanced Directives Records FoundNo Advanced Directives Records FoundNo Advanced Directives Records Found Additional Source Comments INFORMATION SOURCE (unrecogn ized section and content) DATE CREATED AUTHOR AUTHOR'S ORGANIZ ATION 09/08/2017 [facility] Luann Briscoe DATE CREATED AUTHOR AUTHOR'S ORGANIZ ATION 04/03/2023 [facility] Source Comments (unrecognize d section and content) In the event this informatio n is protected by the Federal Confidentiality of Alcohol and Drug Abuse Patient Records regulations: The Federal rules restrict any use of the information to criminally investigate or prosecute any alcohol or drug abuse patient.[facility] the event this information is protected by the Federal Confidentiality of Alcohol and Drug Abuse Patient Records regulations: The Federal rules restrict any use of the information to criminally investigate or prosecute any alcohol or drug abuse patient.[facility] the event this information is protected by the Federal Confidentiality of Alcohol and Drug Abuse Patient Records regulations: The Federal rules restrict any use of the information to criminally investigate or prosecute any alcohol or drug abuse patient.[facility] the event this information is protected by the Federal Confidentiality of Alcohol and Drug Abuse Patient Records regulations: The Federal rules restrict any use of the information to criminally investigate or prosecute any alcohol or drug abuse patient.[facility] the event this information is protected by the Federal Confidentiality of Alcohol and Drug Abuse Patient Records regulations: The Federal rules restrict any use of the information to criminally investigate or prosecute any alcohol or drug abuse patient.[facility] the event this information is protected by the Federal Confidentiality of Alcohol and Drug Abuse Patient Records regulations: The Federal rules restrict any use of the information to criminally investigate or prosecute any alcohol or drug abuse patient.[facility] the event this information is protected by the Federal Confidentiality of Alcohol and Drug Abuse Patient Records regulations: The Federal rules restrict any use of the information to criminally investigate or prosecute any alcohol or drug abuse patient.[facility] Reason for Visit (unrecogniz ed section and content) Reason Comments Corneal Edema Follow Up Reason Comments Patient Question Reason Comments Post-op (Ophthalmology) Right Eye Care Teams (unrecognized sec tion and content) Scrap Wheeler Relationship Specialty Start Date End Date Madan Velásquez MD [address] [place] [address] PCP - General Internal Medicine 07/04/20 Scrap Wheeler Relationship Specialty Start Date End Date Madan Velásquez MD [address] [place] [address] PCP - General Internal Medicine 07/04/20 Scrap Wheeler Relationship Specialty Start Date End Date Madan Velásquez MD [address] [place] [address] PCP - General Internal Medicine 07/04/20 Scrap Wheeler Relationship Specialty Start Date End Date Madan Velásquez MD [address] [place] [address] PCP - General Internal Medicine 07/04/20 Scrap Wheeler Relationship Specialty Start Date End Date Madan Velásquez MD [address] [place] [address] PCP - General Internal Medicine 07/04/20 FOR [...] BE BASED ON THE PRIMARY CLINICAL RECORDS. [facility] [employer] [facility]. provides no warranty or guarantee of the accuracy or completeness of information in this document.
[2023-04-06] MEDS: MethylPREDNISolone 125 MG/2 ML Vial IV (10:03)
[2023-04-06 10:06] LABS: Differential Indicated SCAN CRITERIA MET
[2023-04-06 10:09] LABS: BNP,B-Type NATRIURETIC PEPTIDE 580.7 pg/mL (0-100)
[2023-04-06 10:13] LABS: Anion Gap 9 (5-15); BUN 25 mg/dL (7-18); Calcium,Total 10.7 mg/dL (8.5-10.1); Chloride 100 mmol/L (98-107); Creatinine, Serum 1.67 mg/dL (0.55-1.02); EST Glomerular Filtration Rate 32 mL/min (>60); Est Glom Filt Rate - Afr Amer 39 mL/min (>60); Estimated Creatinine Clearance 42.11 ml/min; Glucose 136 mg/dL (74-106); Potassium 3.5 mmol/L (3.5-5.1); Sodium Level 134 mmol/L (136-145); Troponin-I HS 122 pg/mL (3.0-54.0)
[2023-04-06 10:19] LABS: Differential Comment SCANNED
[2023-04-06 10:31] LABS: D-Dimer Quantitative (DVT/PE) 7.15 FEU/ug/m (0.27-0.49)
--- NOTE | 2023-04-06 10:32 | CT_ITS ---
EXAM: CT ANGIOGRAPHY CHEST WITHOUT AND WITH INTRAVENOUS CONTRAST CLINICAL INDICATION: dyspnea, elevated d-dimer TECHNIQUE: Helically acquired angiography images were obtained of the chest without and with intravenous contrast. This CT exam was performed using one or more of the following dose reduction techniques: automated exposure control, adjustment of the mA and/or kV according to patient size, and/or use of iterative reconstruction technique. MIP reconstructed images were created and reviewed. CONTRAST: IV 100mL Isovue-370 COMPARISON: No relevant prior studies available. FINDINGS: PULMONARY ARTERIES: Extensive filling defects noted within the pulmonary arteries bilaterally with saddle embolus component. Normal in caliber. AORTA: Normal. Normal in caliber. No evidence of dissection. GREAT VESSELS OF AORTIC ARCH: Normal. Normal in caliber. No evidence of dissection. LUNGS AND PLEURAL SPACES: Diffuse airspace opacification of the right lower lobe suggestive of pneumonia. Minimal right pleural effusion. No mass. HEART: Right ventricle is enlarged indicative of right heart strain. No pericardial effusion. No significant coronary artery calcifications. MEDIASTINUM: Normal. No mediastinal or hilar adenopathy. Esophagus is unremarkable. No hiatal hernia. BONES/JOINTS: Normal. No suspicious lytic or blastic abnormality. CT/CTA Chest W/WO Contrast IMPRESSION: 1. Extensive bilateral pulmonary embolism with saddle embolus component. 2. Right heart strain. 3. Right lower lobe pneumonia with small parapneumonic effusion. N.B. : The above Results were Read Back by Jacques Topete MD to Arlene Acevedo DO, and understanding confirmed on 04/06/2023 11:48:19 (ET). Electronically Signed: Jacques Topete MD at 11:49 EST ,
[2023-04-06 10:39] LABS: International Normalized Ratio 1.4; Partial Thromboplast Time 35.6 Seconds (24.1-36.2); Prothrombin Time (Protime)PT. 16.9 SECONDS (11.7-14.9)
[2023-04-06] MEDS: Heparin Injection (Vial) 5,000 UNIT/ML VIAL 9500 UNIT IV (11:05)
[2023-04-06] MEDS: HEPARIN/D5w 25,000 UNITS 25,000 UNITS/250 ML IV.SOLN. 16 UNITS CONT INF (11:08)
--- NOTE | 2023-04-06 11:12 | PCM.HP.STD ---
HPI - General General Date of Admission: 04/06/23 HPI Narrative CARISSA FERNÁNDEZ, is a 68 F who presents to the hospital with increasing shortness of breath and mild chest pain. She says that this started about 5 days ago and has not been able to sleep in the chair for the last 3 days. She follow-up with cardiology on the for this issue with chest pain and shortness of breath without any lower extremity edema. An echocardiogram and a Doppler were ordered as well as a Lexiscan however none of these had time to be completed prior to admission today. CTA of the chest demonstrates a very large right mainstem PE likely saddle and her troponin is elevated indicating right heart strain. She is not significantly hypoxic and does have some pain with deep breathing, she denies any calf pain, on my read of the CTA there is likely pulmonary infarct in the right lower lobe and unlikely to be pneumonia at this time despite her elevated leukocytosis which can occur with large PEs. [facility] Medical History Adrenal nodule Anemia Arthritis Asthma Bilateral foot pain Bradycardia Carpal tunnel syndrome, right CKD (chronic kidney disease), stage III Essential hypertension GERD (gastroesophageal reflux disease) Gout Health care maintenance History of pneumonia Mixed hyperlipidemia Morbid obesity with BMI of 45.0-49.9, adult Osteoarthritis Preoperative evaluation to rule out surgical contraindication Right foot pain Thyroid nodule Home Medications betamethasone dipropionate 0.05 % topical cream 1 applic topical DAILY PRN skin 04/12/19 [History Last Taken Unknown] Handicap Placard #1 ea 12/20/19 [Rx Last Taken Unknown] calcium carbonate 500 mg calcium (1,250 mg) tablet 500 mg PO DAILY 12/28/19 [History Last Taken Unknown] cholecalciferol (vitamin D3) 25 mcg (1,000 unit) tablet 1,000 unit PO DAILY 12/28/19 [History Last Taken Unknown] acetaminophen 325 mg capsule (Tylenol) 325 mg PO ONCE PRN fever or pain 01/28/20 [History Last Taken Unknown] vibegron 75 mg tablet (Gemtesa) 75 mg PO DAILY 01/31/21 [History Last Taken Unknown] simvastatin 20 mg tablet 20 mg PO QHS #90 tabs 06/14/22 [Rx Last Taken Unknown] hydrochlorothiazide 25 mg tablet 25 mg PO DAILY #90 tabs 09/18/22 [Rx Last Taken Unknown] atenolol 50 mg tablet 50 mg PO DAILY #90 tabs 10/21/22 [Rx Last Taken Unknown] tramadol 50 mg tablet 50 mg PO Q6H PRN pain 11/13/22 [History Last Taken Unknown] valsartan 320 mg tablet 320 mg PO DAILY #90 tabs 11/13/22 [Rx Last Taken Unknown] Handicap Placard #1 ea 11/21/22 [Rx Last Taken Unknown] fenofibrate 54 mg tablet 54 mg PO DAILY #90 tabs 03/18/23 [Rx Last Taken Unknown] leflunomide 20 mg tablet 20 mg PO DAILY 04/03/23 [History Last Taken Unknown] prednisolone acetate 1 % eye drops,suspension 1 drp ophthalmic (eye) TID 04/03/23 [History Last Taken Unknown] Allergy/AdvReac Type Severity Reaction Status Date / Time Sulfa (Sulfonamide Allergy Unknown Unknown Verified 04/06/23 09:27 Antibiotics) hydroxychloroquine Allergy Hives Verified 04/06/23 09:27 amlodipine AdvReac Intermediate Foot and Verified 04/06/23 09:27 ankle swelling Family History Brother Sudden cardiac , Onset Age: 50 Mother Heart disease Father Heart disease Surgical History History of cataract surgery History of cholecystectomy History of tubal ligation uterine ablation Social History Smoking Status: Never smoker alcohol intake: never substance use type: does not use caffeine: Yes Type: coffee Number of servings: 2 ROS Constitutional Constitutional: Denies chills, fatigue, fever(s) or malaise Eyes Eyes: Denies blurry vision ENT HEENT: Denies headache(s) or nasal discharge Cardiovascular Cardiovascular: Reports chest pain and orthopnea; Denies dyspnea on exertion or syncope Respiratory/Chest Respiratory/Chest: Reports shortness of breath at rest and shortness of breath with exertion; Denies cough Gastrointestinal Gastrointestinal: Denies constipation, diarrhea, nausea or vomiting Genitourinary Genitourinary: Denies dysuria Neurologic Neurologic: Denies focal weakness, numbness or tremor(s) Psychiatric Psychiatric: Denies anxiety or depression Vital Signs Vital Signs Vital Signs: 04/06/23 09:25 04/06/23 09:54 04/06/23 09:51 Temperature 98.1 F Temperature Source Temporal Pulse Rate 89 76 78 Respiratory Rate 14 16 16 Blood Pressure 156/71 H Blood Pressure Mean 99 Pulse Ox 96 96 Oxygen Delivery Method Room Air Room Air Oxygen Flow Rate (L/min) Fraction of Inspired Oxygen (FIO2) 04/06/23 09:51 04/06/23 09:52 04/06/23 11:00 Temperature Temperature Source Pulse Rate Respiratory Rate 30 H Blood Pressure Blood Pressure Mean Pulse Ox 87 97 Oxygen Delivery Method Room Air Nasal Cannula Oxygen Flow Rate (L/min) 2 Fraction of Inspired Oxygen (FIO2) 98 04/06/23 11:02 04/06/23 11:10 Temperature Temperature Source Pulse Rate 77 76 Respiratory Rate 14 19 H Blood Pressure 111/59 L Blood Pressure Mean 75 Pulse Ox 97 97 Oxygen Delivery Method Oxygen Flow Rate (L/min) Fraction of Inspired Oxygen (FIO2) Weight Weight: 275 lb 2.19 oz Body Mass Index (BMI) 47.2 Physical Exam Narrative General: Alert, Oriented x3, Cooperative, No apparent distress HEENT: Atraumatic, PERRLA, EOMI, Normocephalic Oral: Moist Mucosa Neck: Supple, No JVD Lungs: Diminished, Normal air movement, No rhonchi, No wheeze, No rales, tachypneic Cardiovascular: Regular rate, Regular Rhythm, Normal S1, Normal S2, No murmurs Abdomen: Soft, Non Tender, Non-Distended, No Hepato-splenomegaly Extremities: No edema, Capillary Refill Less than 3 Seconds Skin: No rashes, No breakdown Musculoskeletal: No Tenderness to Palpation of Joints or Extremities Neurological: Cranial nerves II-XII grossly intact, Motor Exam 5/5 strength throughout, Sensory exam intact to light touch and pain Psych/Mental Status: Normal Affect, Appropriate Results Lab / Micro Data 04/06/23 09:47 04/06/23 09:47 Labs: Laboratory Results - last 24 hr 04/06/23 09:47: WBC 14.9 H, RBC 4.02 L, Hgb 11.8 L, Hct 35.9 L, MCV 89.3, MCH 29.4, MCHC 32.9, RDW Std Deviation 47.7 H, RDW Coeff of Liss 14.7 H, Plt Count 209, MPV 9.3, Immature Gran % (Auto) 0.500, Neut % (Auto) 78.5 H, Lymph % (Auto) 9.9 L, Prowers % (Auto) 10.8 H, Eos % (Auto) 0.0, Baso % (Auto) 0.3, Absolute Neuts (auto) 11.7 H, Absolute Lymphs (auto) 1.48, Nucleated RBC % 0, Differential Comment SCANNED, Diff Path Review July foll, PT 16.9 H, INR 1.4, APTT 35.6, D-Dimer Quant (PE/DVT) 7.15 H*, Sodium 134 L, Potassium 3.5, Chloride 100, Carbon Dioxide 25.0, Anion Gap 9, BUN 25 H, Creatinine 1.67 H, Estim Creat Clear Calc 42.11, Est GFR (MDRD) Af Amer 39 L, Est GFR (MDRD) Non-Af 32 L, BUN/Creatinine Ratio 15.0, Glucose 136 H, Calcium 10.7 H, Troponin I High Sens 122 H*, B-Natriuretic Peptide 580.7 H Micro: Microbiology 04/06/23 10:00 Mucosa - Nose SARS-CoV-2, Influenza & RSV (PCR) - Final Imagaing Radiology Impression Chest X-Ray 04/06/23 09:40 IMPRESSION: Increasing airspace opacification of the right lower lobe consistent with pneumonia with small right parapneumonic effusion. Electronically Signed: Jacques Topete MD at 11:01 EST Reading Location ID and State: [address] [place] [address] Tel , Service support , Assessment & Plan Assessment/Plan (1) Pulmonary emboli: PLAN: Plan 1. 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 Continue with the heparin drip ? Will obtain an echo ? Given history of sudden in family would recommend hematology follow-up as an outpatient ? Will hold off of antibiotics and see if her white count resolves on its own if not then could conceivably start community-acquired antibiotics 2. HTN/HLD ? Will resume her home atenolol and cholesterol medications ? Will hold her hydrochlorothiazide and her losartan for her slight bump in creatinine not enough to indicate an RADAMES ? Blood pressure stable ? Will monitor make adjustments as necessary ? She had an echo in 2018 with an EF of 65% and an RVSP of 30 mmHg with no sign of diastolic dysfunction 3. Rheumatoid arthritis ? Can resume her home medications ? Stable 4. Corneal transplant ? She had this done in February so she is to remain on her eyedrops in the right eye 3 times a day DVT: Heparin drip 75 minutes was spent on direct patient care, including documentation as well as chart review and collaboration with colleagues Charges/Coding Visit Charges Inpatient E&M: 83294 Init Hosp L3
--- OUTSIDE RECORDS SUMMARY | 2023-04-06 11:24 | XMS RPT_ITS | CCD ---
Author Name Unknown Address [address] [place] [address] Organization [facility] Care Team Providers Care Extrusion Die Corrector Name Role Phone Santos, Lucy L. Unavailable [...] Translations: [SULFA (SULFONAMIDE ANTIBIOTICS)] [facility] amLODIPine; Translations: [AMLODIPINE] Drug Allergy 3 Swelling [facility] (7 sources) Hydroxychloroquin e; Translations: [HYDROXYCHLOROQUI NE] [facility] Medications Current Medications Medication Drug Class(es) [...] Provider Facility Start: 04-02-2023 End: 04-02-2023 ambulatory [facility] Facility:[facility] Start: 03-12-2023 End: 03-12-2023 ambulatory [facility] Facility:[facility] Start: 03-05-2023 End: 03-05-2023 ambulatory [facility] Facility:[facility] Start: 03-05-2023 End: 03-05-2023 Patient encounter procedure [...] Detail Author Start: 10-09-2027 Urine microalbumin profile [facility] Start: 11-15-2022 Covid-19 Vaccine ( season) Covid-19 Vaccine ( season) [facility] Start: 11-15-2022 Influenza vaccination [facility] Start: 10-08-2022 Lipid 1996 panel - S michael or Plasma Lipid Screening [facility] Start: 10-08-2022 Lipid panel Lipid Screening [facility] Start: 10-08-2022 LIPID SCREEN LIPID SCREEN [facility] Start: 03-17-2022 ADVANCE DIRECTIVE DISCUSSION ADVANCE DIRECTIVE DISCUSSION [facility] Start: 03-17-2022 DEPRESSION ASSESSMENT DEPRESSION ASS ESSMENT [facility] Start: 01-31-2022 Pneumococcal Vaccine : 65+ (2 - PPSV23 or PCV20) Pneumococcal Vaccine: 65+ (2 - PPSV23 or PCV20) [facility] Start: 03-31-2021 DIABETES SCREEN [facility] Start: 03-31-2021 Diabetes Screening Diabetes Screenin g [facility] Start: 03-28-2021 Pneumococcal Vaccine : 65+ (2 of 2 - PPSV23 or PCV20) Pneumococcal Vaccine: 65+ (2 of 2 - PPSV23 or PCV20) [facility] Start: 05-16-2020 Colonoscopy Colonoscopy [facility] Start: 05-16-2020 Colorectal Cancer Screening Colorectal Cancer Screening [facility] Start: 05-16-2020 Screening for malign ant neoplasm of colon [facility] Start: 01-29-2020 BONE DENSITY BONE DENSITY [facility] Start: 01-29-2020 Bone Density Screening Bone Density Screening [facility] Start: 01-29-2020 Pneumococcal Vaccine : 65+ (1 - PCV) Pneumococcal Vaccine: 65+ (1 - PCV) [facility] Start: 01-29-2020 PNEUMOCOCCAL: 65+ (1 - PCV) PNEUMOCOCCAL: 65+ (1 - PCV) [facility] Start: 01-29-2020 Screening for osteoporosis Bone Dens ity Screening [facility] Start: 10-06-2019 Annual PCP Team Cellar Pumper armando Disease Visit Annual PCP Team Chronic Disease Visit [facility] Start: 10-08-2018 BP Controlled (<130/80) BP Controlle d (<130/80) [facility] Start: 06-26-2018 Mammography [facility] Start: 06-26-2018 Screening for malign ant neoplasm of breast Mammogram Screening [facility] Start: 2015 RSV Vaccine (1 - 1-d ose 60+ series) RSV Vaccine (1 - 1-dose 60+ series) [facility] Start: 2005 SHINGRIX VACCINE (1 of 2) SHINGRIX V ACCINE (1 of 2) [facility] Start: 01-29-2000 COLOGUARD (FIT-DNA) COLOGUARD (FIT-D NA) [facility] Start: 01-29-2000 Colonoscopy COLONOSCOPY [facility] Start: 01-29-2000 COLORECTAL CANCER SCREENING COLORECTAL CANCER SCREENING [facility] Start: 01-29-[address] COLONOGRAPHY [facility] Start: 01-29-2000 FECAL OCCULT BLOOD FECAL OCCULT BLOO D [facility] Start: 01-29-2000 Screening for malign ant neoplasm of colon [facility] Start: 01-29-2000 [facility] Start: 1974 Shingrix Vaccine (1 of 2) Shingrix V accine (1 of 2) [facility] Start: 1955 COVID-19 VACCINE (#1) COVID-19 VACCI NE (#1) [facility] Immunizations Immunization Date Immunization Notes Care Provider Fa cility 04-07-2018 influenza virus vacc ine, unspecified formulation Kiran Gifford MD Work Phone: [facility] Payers Date Payer Category Payer Medicare [employer] MEDICARE [employer] MEDICARE PPO [id number] 2020-Present [phone] [place] [address] PPO [id number] 2020 Medicare [id number] 2015 Unknown [id number] Social History Date Type Detail Facility Start: 06-06-2017 End: 12-04-2022 Tobacco smoking status NHIS Never smoked tobacco [facility] Start: 06-06-2017 End: 12-04-2022 Tobacco use and exposure Smokeless tobacco non-user [facility] Start: 10-05-2018 End: 03-05-2023 Alcohol intake Current non-drinker of alcohol (finding) [facility] Start: 10-05-2018 End: 01-29-2023 History of Social function [facility] Start: 10-05-2018 End: 01-29-2023 Tobacco use panel [facility] Adult Depression Scr eening Assessment 0 [facility] Start: 1955 Sex Assigned At Not on file [facility] Medical Equipment Procedure Code Equipment Code Equipment Origin al Text Equipment Identifier Dates Cornea Tissue Pre-Loaded [id number] - [id number]_[facility] Start: 02-28-2023 Gas Ispan Constellation Intraocular Vision System [id number] - [id number] Start: 02-28-2023 Clinical Notes 11-22-2022 to 04-02-2023 Patient InstructionsKiran Gifford MD - 03/05/2023 11:11 AM ESTPatient InstructionsKiran Gifford MD - 03/01/2023 1:31 PM EST Note Date & Type Note Facility 04-02-2023 Note HNO ID: [id number] Author: KIRAN GIFFORD MD Service: ? Author [...] of its relevant components. Kiran Gifford MD [facility] 03-12-2023 Note HNO ID: [id number] Author: Kiran Gifford MD Service: ? Author [...] of its relevant components. Kiran Gifford MD [facility] 03-05-2023 Note HNO ID: [id number] Author: Kiran Gifford MD Service: ? Author [...] of its relevant components. Kiran Gifford MD [facility] 03-05-2023 Instructions Kiran Gifford MD - 03/05/2023 11:12 AM EST -prednisolone 4x daily right eye -vigamox four times a day right eye -lie flat on back every two hours -precautions documented in this encounter [facility] 03-05-2023 History of Presen t illness Narrative [...] Kiran Gifford MD documented in this encounter [facility] 03-01-2023 Note HNO ID: [id number] Author: Kiran Gifford MD Service: ? Author [...] of its relevant components. Kiran Gifford MD [facility] 03-01-2023 Instructions Kiran Gifford MD - 03/01/2023 1:32 PM EST Images from the original note were not included. documented in this encounter [facility] 03-01-2023 History of Presen t illness Narrative [...] Kiran Gifford MD documented in this encounter [facility] documented as of this encounter (statuses as of 03/01/2023) [facility]12-15-2023 History of Past illness Narrative* Problem Noted Date Diagnosed Date Resolved Date Corneal edema, secondary, right 02/28/2023 02/28/2023 documented as of this encounter (statuses as of 03/06/2023) [facility]11-08-2023 NoteHNO ID: [id number] Author: Kiran Gifford MD Service: ? Author [...] all of its relevant components. Kiran Gifford, [facility]11-08-2023 Instructions* Patient Instructions* Kiran Gifford MD - 01/22/2023 9:36 AM EST -Tre White (surgical scheduling): [phone] [facility]23 History of Present illness Narrative* Kiran Gifford [...] components. Kiran Gifford MD [facility]-2023 Miscellaneous Notes* Telephone Encounter - Cherise West [...] which she is under the care of [facility] to control her hypertension. Patient states she started these medications shortly before she started to experience the eye pain in the right eye. Patient spoke with the [facility] and they advised that she [...] asking for a phone call back at [phone]. Review and advise. [facility]10-18-2023 NoteHNO ID: [id number] Author: Kiran Gifford MD Service: ? Author [...] all of its relevant components. Kiran Gifford, [facility]10-18-2023 History of Present illness Narrative* Kiran Gifford [...] components. Kiran Gifford MD [facility]10-13-2023 Miscellaneous Notes* Telephone Encounter - Abbi Cole - 12/27/2022 10:59 AM EDT Ptient called wanting to let you know she is having carpel tunnel surgery on 01/07 and didn't know if it would affect her eyes.Abbi Dahl documented in this encounterM[facility]09-27-2023 NoteHNO ID: [id number] Author: Kiran Gifford MD Service: ? Author [...] all of its relevant components. Kiran Gifford, [facility]09-20-2023 NoteHNO ID: [id number] Author: Kiran Gifford MD Service: ? Author [...] Kiran Gifford MD December 04, 2022 9:09 [facility]09-08-2023 Miscellaneous Notes* Telephone Encounter - Charlotte Valencia OA - 11/22/2022 3:45 PM EDT Spoke with Randee brar at the [facility] regarding this patient's referral to Dr. Gifford. She stated that the patient is scheduled to see one of their providers on Friday11/25/2022 for a follow up. Patient is scheduled to then follow up with Dr. Gifford for a consult on 12/04/2022. This patient has also been added to the wait list for a cancellation. Please advise MARRY Nelson documented in [facility] encounterM[facility] Hospital[facility]* Diagnosis Corneal edema, secondary, right- Primary Corneal scar, right eye Corneal opacity, unspecified Pseudophakia Lens replaced by other means Corneal edema, secondary, right [facility]* Diagnosis Corneal edema, secondary, right- Primary Corneal scar, right eye Corneal opacity, unspecified Pseudophakia Lens replaced by other means Corneal edema, secondary, right [facility]* Diagnosis Status post corneal transplant- Primary Cornea replaced by transplant documented in this encounter [facility] Summary Purpose Family History No Family History Records FoundNo Family History Records FoundNo Family History Records Found Advance Directives No Advanced Directives Records FoundNo Advanced Directives Records FoundNo Advanced Directives Records Found Additional Source Comments INFORMATION SOURCE (unrecogn ized section and content) DATE CREATED AUTHOR AUTHOR'S ORGANIZ ATION 09/08/2017 [facility] Luann Briscoe DATE CREATED AUTHOR AUTHOR'S ORGANIZ ATION 04/03/2023 [facility] Source Comments (unrecognize d section and content) In the event this informatio n is protected by the Federal Confidentiality of Alcohol and Drug Abuse Patient Records regulations: The Federal rules restrict any use of the information to criminally investigate or prosecute any alcohol or drug abuse patient.[facility] Hospital[facility] the event this information is protected by the Federal Confidentiality of Alcohol and Drug Abuse Patient Records regulations: The Federal rules restrict any use of the information to criminally investigate or prosecute any alcohol or drug abuse patient.[facility] HospitalIn the event this information is protected by the Federal Confidentiality of Alcohol and Drug Abuse Patient Records regulations: The Federal rules restrict any use of the information to criminally investigate or prosecute any alcohol or drug abuse patient.[facility] HospitalIn the event this information is protected by the Federal Confidentiality of Alcohol and Drug Abuse Patient Records regulations: The Federal rules restrict any use of the information to criminally investigate or prosecute any alcohol or drug abuse patient.[facility] HospitalIn the event this information is protected by the Federal Confidentiality of Alcohol and Drug Abuse Patient Records regulations: The Federal rules restrict any use of the information to criminally investigate or prosecute any alcohol or drug abuse patient.[facility] HospitalIn the event this information is protected by the Federal Confidentiality of Alcohol and Drug Abuse Patient Records regulations: The Federal rules restrict any use of the information to criminally investigate or prosecute any alcohol or drug abuse patient.[facility] HospitalIn the event this information is protected by the Federal Confidentiality of Alcohol and Drug Abuse Patient Records regulations: The Federal rules restrict any use of the information to criminally investigate or prosecute any alcohol or drug abuse patient.[facility] Reason for Visit (unrecogniz ed section and content) Reason Comments Corneal Edema Follow Up Reason Comments Patient Question Reason Comments Post-op (Ophthalmology) Right Eye Care Teams (unrecognized sec tion and content) Extrusion Die Corrector Relationship Specialty Start Date End Date Madan Velásquez MD [address] [place] [address] PCP - General Internal Medicine 07/04/20 Extrusion Die Corrector Relationship Specialty Start Date End Date Madan Velásquez MD [address] [place] [address] PCP - General Internal Medicine 07/04/20 Extrusion Die Corrector Relationship Specialty Start Date End Date Madan Velásquez MD [address] [place] [address] PCP - General Internal Medicine 07/04/20 Extrusion Die Corrector Relationship Specialty Start Date End Date Madan Velásquez MD [address] [place] [address] PCP - General Internal Medicine 07/04/20 Extrusion Die Corrector Relationship Specialty Start Date End Date Madan Velásquez MD [address] [place] [address] PCP - General Internal Medicine 07/04/20 FOR [...] BE BASED ON THE PRIMARY CLINICAL RECORDS. [facility]. provides no warranty or guarantee of the accuracy or completeness of information in this document.
[2023-04-06] MEDS: prednisoLONE eye drops (5 mL) 1 DROP OPTH.BTL 1 DRP RIGHT EYE ×2 (14:20→21:31)
[2023-04-06] MEDS: Atorvastatin Calcium 10 MG Tablet PO (21:31)
[2023-04-06] MEDS: Calcium Carbonate 500 MG Tablet 1000 MG PO (22:08)
[2023-04-07 01:41] LABS: Partial Thromboplast Time 57.2 Seconds (24.1-36.2)
[2023-04-07 03:30] VITALS: BP 119/79; PULSE 64; RESP 18; TEMP 36.6; O2SAT 94
[2023-04-07] MEDS: HEPARIN/D5w 25,000 UNITS 25,000 UNITS/250 ML IV.SOLN. 14 UNITS CONT INF (04:57)
[2023-04-07] MEDS: prednisoLONE eye drops (5 mL) 1 DROP OPTH.BTL 1 DRP RIGHT EYE ×3 (04:58→21:32)
--- NOTE | 2023-04-07 05:55 | ECHOD_ITS ---
Reason For Study: Saddle PE Procedure This was a 2D Doppler, Color Flow transthoracic echocardiogram. Exam performed portable in patient room. Left Ventricle Normal LV size. D shaped septum in diastole. Left ventricular systolic function is normal. The estimated ejection fraction is 65 %. Stage 1 diastolic dysfunction. No regional wall motion abnormalities noted. Right Ventricle Moderately dilated right ventricle. Mild to moderate global right ventricular systolic dysfunction. Atria Normal left atrium. Normal right atrium. Mitral Valve Normal mitral valve. Tricuspid Valve Normal tricuspid valve. Mild to moderate (1-2+) tricuspid valve insufficiency. Pulmonary artery systolic pressure is 48 mmHg. Aortic Valve Normal aortic valve. Trisinus/trileaflet aortic valve. Pulmonic Valve Normal pulmonic valve. Great Vessels Normal aortic root. The pulmonary artery is normal size. Normal inferior vena cava. Pericardium/Pleural No pericardial effusion. MMode/2D Measurements & Calculations LVIDd: 3.6 cm IVSd: 1.1 cm Ao root diam: 3.2 cm LVIDs: 2.3 cm LVPWd: 1.1 cm FS: 36.3 % LAV(MOD-bp): 33.6 ml LVAd ap4: 20.6 cm2 LVAd ap2: 23.5 cm2 LAV(MOD-bp) Indexed: 15.1 ml/m2 LVLd ap4: 7.7 cm LVLd ap2: 7.5 cm LAV(MOD-sp2): 33.6 ml EDV(MOD-sp4): 45.1 ml EDV(MOD-sp2): 60.3 ml LAV(MOD-sp4): 32.1 ml EDV(sp4-el): 46.3 ml EDV(sp2-el): 62.7 ml LVAs ap4: 10.0 cm2 LVAs ap2: 13.3 cm2 LVLs ap4: 5.9 cm LVLs ap2: 6.3 cm ESV(MOD-sp4): 15.5 ml ESV(MOD-sp2): 22.8 ml ESV(sp4-el): 14.4 ml ESV(sp2-el): 23.7 ml EF(MOD-sp4): 65.7 % EF(MOD-sp2): 62.3 % EF(sp4-el): 68.8 % SV(MOD-sp4): 29.6 ml SV(MOD-sp2): 37.6 ml SV(sp4-el): 31.8 ml LA dimension(2D): 3.6 cm LA A4 area: 13.6 cm2 RA A4 area: 13.7 cm2 TAPSE: 2.4 cm Time Measurements MV dec time: 0.25 sec Doppler Measurements & Calculations MV E max shravan: 83.9 cm/sec Lat Peak E' Shravan: 11.2 cm/sec Med Peak E' Shravan: 6.5 cm/sec MV A max shravan: 103.1 cm/sec E/E' lat: 7.5 E/E' med: 12.8 MV E/A: 0.81 MV dec slope: 333.1 cm/sec2 Ao V2 max: 137.5 cm/sec LV V1 max: 121.7 cm/sec Ao max P.6 mmHg LV V1 max P.9 mmHg PA V2 max: 118.7 cm/sec TR max shravan: 332.4 cm/sec PA V2 mean: 76.1 cm/sec TR max P.2 mmHg ECHO/Echo Complete Interpretation Summary Normal LV size. Left ventricular systolic function is normal. The estimated ejection fraction is 65 %. No regional wall motion abnormalities noted. Stage 1 diastolic dysfunction. Mild to moderate global right ventricular systolic dysfunction. Pulmonary artery systolic pressure is 48 mmHg. D shaped septum in diastole. Ordering Physician: Thor Alfred Referring Physician: Madan Velásquez Performed By: Kristen Leung RDCS
[2023-04-07 07:09] LABS: Absolute Neutrophil Count 12.7 X10^3/uL (2.0-7.7); Basophil# 0.03 X10^3/uL; Basophil% 0.2 % (0-1); Hematocrit 31.9 % (37-47); Hemoglobin 10.2 g/dL (12.0-15.0); Lymphocyte % 8.1 % (19-41); Mean Corpuscular Hgb 27.9 pg (27.0-32.0); Mean Corpuscular Volume 87.4 fL (81-99); Mean Platelet Vol. 9.6 fl (6.2-12.0); Monocyte# 1.81 X10^3/uL; Monocyte% 11.3 % (0-10); NRBC Flagged by Analyzer 0 % (0-5); Neutrophil # 12.74 X10^3/uL (2.7-7.7); Neutrophil % 79.4 % (47-70); POSITIVE DIFFERENTIAL YES; Platelet Count 227 K/mm3 (150-450); RBC Distribution Width CV 14.6 % (11.6-14.6); RBC Distribution Width SD 46.8 fl (35.1-43.9); Red Blood Count 3.65 M/mm3 (4.2-5.4)
[2023-04-07 07:14] LABS: Differential Indicated SCAN CRITERIA MET
[2023-04-07 07:38] LABS: Anion Gap 7 (5-15); BUN 33 mg/dL (7-18); BUN/Creat Ratio 23.7 RATIO (10-20); Calcium,Total 10.5 mg/dL (8.5-10.1); Chloride 104 mmol/L (98-107); Creatinine, Serum 1.39 mg/dL (0.55-1.02); EST Glomerular Filtration Rate 40 mL/min (>60); Est Glom Filt Rate - Afr Amer 49 mL/min (>60); Estimated Creatinine Clearance 50.38 ml/min; Glucose 172 mg/dL (74-106); Potassium 3.7 mmol/L (3.5-5.1); Sodium Level 137 mmol/L (136-145)
[2023-04-07 08:09] LABS: Toxic Granulation 1+
[2023-04-07 08:15] VITALS: O2SAT 95
[2023-04-07 08:21] LABS: Partial Thromboplast Time 52.3 Seconds (24.1-36.2)
[2023-04-07] MEDS: Heparin Injection (Vial) 5,000 UNIT/ML VIAL IV ×3 (08:39→21:49)
[2023-04-07] MEDS: Atenolol 50 MG Tablet PO (08:42)
[2023-04-07] MEDS: Fenofibrate 48 MG Tablet PO (08:42)
[2023-04-07] MEDS: Leflunomide 10 MG TABLET 20 MG PO (08:42)
[2023-04-07 08:43] VITALS: BP 129/75; PULSE 62; RESP 16; TEMP 36.8; O2SAT 97
[2023-04-07 08:46] VITALS: O2SAT 92
--- NOTE | 2023-04-07 11:07 | PN.HOSP_ITS ---
Reason for Visit Reason for Visit: Diagnoses Other pulmonary embolism without acute cor pulmonale (04/06/23) Subjective Subjective Patient is a 68-year-old lady admitted with progressive shortness of breath. CTA obtained demonstrated extensive bilateral pulmonary embolism with saddle embolus component, right lower lobe with small parapneumonic effusion. Admitted to a monitored bed for further management Objective Data Objective Data Vital Signs: Vital Signs Temp Pulse Resp BP Pulse Ox O2 Del Method O2 Flow Rate 98.3 F 62 16 129/75 H 92 Room Air 2 04/07/23 08:43 04/07/23 08:43 04/07/23 08:43 04/07/23 08:43 04/07/23 08:46 04/07/23 10:00 04/07/23 08:43 FiO2 98 04/06/23 09:52 Oxygen Flow Rate (L/min) 2 Oxygen Delivery Method Room Air Weight: 123.9 kg Body Mass Index (BMI) 46.8 Intake & Output: Intake and Output for Last 24 Hours 04/05/23 04/06/23 04/07/23 23:59 23:59 23:59 Intake Total 585.87 / 585.87 433.43 / 433.43 Output Total 200 / 200 Balance 585.87 / 585.87 233.43 / 233.43 Lab / Micro Data 04/07/23 06:42 04/07/23 06:42 Labs: Laboratory Results - last 24 hr 04/06/23 17:02: APTT 100.0 H* 04/07/23 00:50: APTT 57.2 H 04/07/23 06:42: WBC 16.0 H, RBC 3.65 L, Hgb 10.2 L, Hct 31.9 L, MCV 87.4, MCH 27.9, MCHC 32.0, RDW Std Deviation 46.8 H, RDW Coeff of Liss 14.6, Plt Count 227, MPV 9.6, Immature Gran % (Auto) 1.000 H, Neut % (Auto) 79.4 H, Lymph % (Auto) 8.1 L, Ransom % (Auto) 11.3 H, Eos % (Auto) 0.0, Baso % (Auto) 0.2, Absolute Neuts (auto) 12.7 H, Absolute Lymphs (auto) 1.30, Nucleated RBC % 0, Diff Path Review May foll, Toxic Granulation 1+, APTT 52.3 H, Sodium 137, Potassium 3.7, Chloride 104, Carbon Dioxide 26.0, Anion Gap 7, BUN 33 H, Creatinine 1.39 H, Estim Creat Clear Calc 50.38, Est GFR (MDRD) Af Amer 49 L, Est GFR (MDRD) Non-Af 40 L, BUN/Creatinine Ratio 23.7 H, Glucose 172 H, Calcium 10.5 H Micro: Microbiology 04/06/23 10:00 Mucosa - Nose SARS-CoV-2, Influenza & RSV (PCR) - Final Radiography Diagnostic Testing: Radiology Impression Chest CTA 04/06/23 10:32 IMPRESSION: 1. Extensive bilateral pulmonary embolism with saddle embolus component. 2. Right heart strain. 3. Right lower lobe pneumonia with small parapneumonic effusion. N.B. : The above Results were Read Back by Jacques Topete MD to Arlene Acevedo DO, and understanding confirmed on 04/06/2023 11:48:19 (ET). Electronically Signed: Jacques Topete MD at 11:49 EST , ADDENDUM: 04/06/23 1156 IMPRESSION: 1. Extensive bilateral pulmonary embolism with saddle embolus component. 2. Right heart strain. 3. Right lower lobe pneumonia with small parapneumonic effusion. N.B. : The above Results were Read Back by Jacques Topete MD to Arlene Acevedo DO, and understanding confirmed on 04/06/2023 11:48:19 (ET). Electronically Signed: Jacques Topete MD at 11:49 EST , ADDENDUM: 04/06/23 1257 IMPRESSION: undefined Physical Exam Narrative GENERAL: cooperative HEENT: Atraumatic; normocephalic EYES; Anicteric, Normal Conjunctiva NECK; supple, normal thyroid, RESPIRATORY: Diminished to auscultation CARDIOVASCULAR: Regular S1 S2, GI: soft, normoactive bowel sounds, : No Renal angle tenderness; EXTREMITIES: No edema, no clubbing, MUSCULOSKELETAL: no muscle wasting NEURO: Awake; no lateralizing signs. SKIN: No Rash PSYCH; Flat affect Assessment & Plan Assessment/Plan (1) Pulmonary emboli: PLAN: Plan Patient is a 68-year-old lady admitted with progressive shortness of breath. CTA obtained demonstrated extensive bilateral pulmonary embolism with saddle embolus component, right lower lobe with small parapneumonic effusion. Admitted to a monitored bed for further management 1. 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 Patient admitted to a monitored bed started on systemic anticoagulation with heparin. Given the extent of clot and with this being unprovoked patient will need to be on systemic anticoagulation indefinitely. Also did discuss with patient further need to undergo age-related cancer screening to be organized by her primary care physician 2. Right heart strain ? On CAT scan ordered 2D echo for subsequent evaluation 3. Right lower lobe pneumonia ? Most likely pulmonary infarct with superimposed bacterial infection. Patient started on systemic anticoagulation with Levaquin 4. Hypertension - Blood pressure controlled, home medications continued with dose adjustment as needed 5. Dyslipidemia -Patient is on statin as well as fibrate therapy, continued at home dose 6. Rheumatoid arthritis ? Patient is on leflunomide 7./3 obesity with BMI of 47 ? Complicating care weight loss advised 8. Corneal transplant ? She had this done in February so she is to remain on her eyedrops in the right eye 3 times a day Time spent in the patient's overall evaluation,decision-making process, review of diagnostic data, adjustment of management, discussion with other providers, nursing nursing and ancillary staff involved in patient's care documentation, 50 Minutes Charges/Coding Visit Charges Inpatient E&M: 30124 Subs Hosp L3
--- NOTE | 2023-04-07 11:15 | CASEMGMT ---
RN SANIYA Face to Face with patient for initial transition planning/care coordination assessment. RN CM introduced self and role at [facility]. Patient lying in bed, alert and oriented. Patient willing to participate in assessment and is able to answer all questions appropriately. Care providers, pharmacy, and demographics verified. Patient wishes to discharge home, denies need for home health at this time. Patient states she has no further needs or concerns at this time. CM to follow for discharge planning needs that may arise. PCP: [facility] Specialists: RA Anthony; Lila urologist; Ninoska auto transmission mechanic; JULIANA, oncologist; Preferred Pharmacy: [facility] Insurance: [employer] Prescription Benefit: yes Living Will/HPOA: yes, Jean Ewing LNOK: Living Arrangements: Patient lives with in a single story home with 3-4 steps and railing to enter the home. Patient is independent at home. Transportation: self, DME/HHC: Patient has shower chair, raised toilet, cane, rollator, grab bars, and lift chair at home. Will monitor for home oxygen at discharge, patient prefers [employer]. No previous HHC or SNF Disposition Plan: Patient to discharge home with family support and follow-up plans in place. Magdalene PEREYRA, RN, CM
[2023-04-07 14:45] VITALS: BP 123/70; PULSE 60; RESP 17; TEMP 36.6; O2SAT 95
[2023-04-07 14:45] LABS: Partial Thromboplast Time 46.2 Seconds (24.1-36.2)
[2023-04-07 21:00] VITALS: BP 127/78; PULSE 69; RESP 18; TEMP 36.9; O2SAT 99
[2023-04-07 21:00] LABS: Partial Thromboplast Time 49.6 Seconds (24.1-36.2)
[2023-04-07] MEDS: Atorvastatin Calcium 10 MG Tablet PO (21:32)
[2023-04-07] MEDS: Morphine 4 MG/ML Syringe IV (21:33)
[2023-04-07] MEDS: HEPARIN/D5w 25,000 UNITS 25,000 UNITS/250 ML IV.SOLN. 17 UNITS CONT INF (21:47)
[2023-04-07] MEDS: levoFLOXacin 750 MG Tablet PO (22:57)
[2023-04-08 03:00] VITALS: BP 138/85; PULSE 66; RESP 16; TEMP 36.8; O2SAT 97
[2023-04-08] MEDS: Morphine 4 MG/ML Syringe IV (04:16)
[2023-04-08 04:35] LABS: Absolute Lymphocyte Count 2.28 X10^3/uL (0.83-4.51); Absolute Neutrophil Count 9.5 X10^3/uL (2.0-7.7); Basophil# 0.05 X10^3/uL; Basophil% 0.4 % (0-1); Eosinophil# 0.02 X10^3/uL; Eosinophils% 0.1 % (0-5); Hematocrit 30.4 % (37-47); Hemoglobin 9.8 g/dL (12.0-15.0); Lymphocyte # 2.28 X10^3/ul (0.83-4.51); Lymphocyte % 16.9 % (19-41); Mean Corp Hgb Conc 32.2 g/dL (32-36); Mean Corpuscular Hgb 28.5 pg (27.0-32.0); Mean Corpuscular Volume 88.4 fL (81-99); Mean Platelet Vol. 9.5 fl (6.2-12.0); Monocyte# 1.58 X10^3/uL; Monocyte% 11.7 % (0-10); NRBC Flagged by Analyzer 0.1 % (0-5); Neutrophil # 9.45 X10^3/uL (2.7-7.7); Neutrophil % 70.1 % (47-70); POSITIVE DIFFERENTIAL YES; Platelet Count 253 K/mm3 (150-450); RBC Distribution Width SD 48.2 fl (35.1-43.9); Red Blood Count 3.44 M/mm3 (4.2-5.4); White Blood Count 13.5 K/mm3 (4.4-11.0)
[2023-04-08 04:50] LABS: Anion Gap 7 (5-15); BUN 40 mg/dL (7-18); BUN/Creat Ratio 33.1 RATIO (10-20); Calcium,Total 9.6 mg/dL (8.5-10.1); Chloride 104 mmol/L (98-107); Creatinine, Serum 1.21 mg/dL (0.55-1.02); EST Glomerular Filtration Rate 47 mL/min (>60); Est Glom Filt Rate - Afr Amer 57 mL/min (>60); Estimated Creatinine Clearance 57.87 ml/min; Glucose 119 mg/dL (74-106); Magnesium 1.9 mg/dL (1.6-2.6); Phosphorus 2.3 mg/dL (2.5-4.9); Potassium 3.5 mmol/L (3.5-5.1); Sodium Level 137 mmol/L (136-145)
[2023-04-08 04:53] LABS: Differential Indicated SCAN CRITERIA MET
[2023-04-08] MEDS: prednisoLONE eye drops (5 mL) 1 DROP OPTH.BTL 1 DRP RIGHT EYE ×3 (06:23→22:09)
[2023-04-08 06:37] LABS: Differential Comment SCANNED
[2023-04-08 07:51] VITALS: O2SAT 91
--- NOTE | 2023-04-08 07:54 | PCM.PN.HOSP ---
Reason for Visit Reason for Visit: Diagnoses Other pulmonary embolism without acute cor pulmonale (04/06/23) Subjective Subjective Patient seen complains of right-sided pleuritic chest pain. Patient is on heparin switched to apixaban with a starting dose of 10 mg p.o. twice daily Objective Data Objective Data Vital Signs: Vital Signs Temp Pulse Resp BP Pulse Ox O2 Del Method O2 Flow Rate 98.2 F 66 16 138/85 H 97 Nasal Cannula 2 04/08/23 03:00 04/08/23 03:00 04/08/23 03:00 04/08/23 03:00 04/08/23 03:00 04/08/23 03:00 04/08/23 03:00 FiO2 98 04/06/23 09:52 Oxygen Flow Rate (L/min) 2 Oxygen Delivery Method Nasal Cannula Weight: 123.9 kg Body Mass Index (BMI) 46.8 Intake & Output: Intake and Output for Last 24 Hours 04/06/23 04/07/23 04/08/23 23:59 23:59 23:59 Intake Total 585.87 / 585.87 632.80 / 832.80 200 / 200 Output Total 200 / 200 0 / 0 Balance 585.87 / 585.87 432.80 / 632.80 200 / 200 Lab / Micro Data 04/08/23 03:47 04/08/23 03:47 Labs: Laboratory Results - last 24 hr 04/07/23 06:42: Diff Path Review July, Toxic Granulation 1+, APTT 52.3 H 04/07/23 14:07: APTT 46.2 H 04/07/23 20:22: APTT 49.6 H 04/08/23 03:47: WBC 13.5 H, RBC 3.44 L, Hgb 9.8 L, Hct 30.4 L, MCV 88.4, MCH 28.5, MCHC 32.2, RDW Std Deviation 48.2 H, RDW Coeff of Liss 15.0 H, Plt Count 253, MPV 9.5, Immature Gran % (Auto) 0.800, Neut % (Auto) 70.1 H, Lymph % (Auto) 16.9 L, Dawes % (Auto) 11.7 H, Eos % (Auto) 0.1, Baso % (Auto) 0.4, Absolute Neuts (auto) 9.5 H, Absolute Lymphs (auto) 2.28, Nucleated RBC % 0.1, Differential Comment SCANNED, Diff Path Review July foll, APTT 56.0 H, Sodium 137, Potassium 3.5, Chloride 104, Carbon Dioxide 26.0, Anion Gap 7, BUN 40 H, Creatinine 1.21 H, Estim Creat Clear Calc 57.87, Est GFR (MDRD) Af Amer 57 L, Est GFR (MDRD) Non-Af 47 L, BUN/Creatinine Ratio 33.1 H, Glucose 119 H, Calcium 9.6, Phosphorus 2.3 L, Magnesium 1.9 Micro: Microbiology 04/06/23 10:00 Mucosa - Nose SARS-CoV-2, Influenza & RSV (PCR) - Final Radiography Diagnostic Testing: Radiology Impression Echocardiogram 04/07/23 05:55 Interpretation Summary Normal LV size. Left ventricular systolic function is normal. The estimated ejection fraction is 65 %. No regional wall motion abnormalities noted. Stage 1 diastolic dysfunction. Mild to moderate global right ventricular systolic dysfunction. Pulmonary artery systolic pressure is 48 mmHg. D shaped septum in diastole. Ordering Physician: Thor Alfred Referring Physician: Madan Velásquez Performed By: Kristen Leung RDCS Physical Exam Narrative GENERAL: cooperative HEENT: Atraumatic; normocephalic EYES; Anicteric, Normal Conjunctiva NECK; supple, normal thyroid, RESPIRATORY: Diminished to auscultation CARDIOVASCULAR: Regular S1 S2, GI: soft, normoactive bowel sounds, : No Renal angle tenderness; EXTREMITIES: No edema, no clubbing, MUSCULOSKELETAL: no muscle wasting NEURO: Awake; no lateralizing signs. SKIN: No Rash PSYCH; Flat affect Assessment & Plan Assessment/Plan (1) Pulmonary emboli: PLAN: Plan Patient is a 68-year-old lady admitted with progressive shortness of breath. CTA obtained demonstrated extensive bilateral pulmonary embolism with saddle embolus component, right lower lobe with small parapneumonic effusion. Admitted to a monitored bed for further management 1. 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 Patient admitted to a monitored bed started on systemic anticoagulation with heparin. Given the extent of clot and with this being unprovoked patient will need to be on systemic anticoagulation indefinitely. Also did discuss with patient further need to undergo age-related cancer screening to be organized by her primary care physician ? 04/08/2023; patient switched from heparin to apixaban 2. Acute cor pulmonale secondary to pulmonary embolism ? On CAT scan ordered 2D echo for subsequent evaluation ? 04/08/2023; 2D echo demonstrated pulmonary arterial pressure 48 mmHg 3. Right lower lobe pneumonia ? Most likely pulmonary infarct with superimposed bacterial infection. Patient started on systemic anticoagulation with Levaquin 4. Hypertension - Blood pressure controlled, home medications continued with dose adjustment as needed 5. Dyslipidemia -Patient is on statin as well as fibrate therapy, continued at home dose 6. Rheumatoid arthritis ? Patient is on leflunomide 7./3 obesity with BMI of 47 ? Complicating care weight loss advised 8. Corneal transplant ? She had this done in February so she is to remain on her eyedrops in the right eye 3 times a day 9. Right-sided pleuritic pain ? Patient started on pain regimen in addition to incentive spirometry Time spent in the patient's overall evaluation,decision-making process, review of diagnostic data, adjustment of management, discussion with other providers, nursing nursing and ancillary staff involved in patient's care documentation, 50 Minutes Charges/Coding Visit Charges Inpatient E&M: 15822 [facility] L3
[2023-04-08 09:00] VITALS: BP 127/57; PULSE 69; RESP 17; TEMP 36.1; O2SAT 92
[2023-04-08] MEDS: APIXABAN 5 MG TABLET 10 MG PO ×2 (10:11→22:08)
[2023-04-08] MEDS: oxyCODONE 5 MG Tablet PO ×2 (10:11→22:09)
[2023-04-08] MEDS: Atenolol 50 MG Tablet PO (10:12)
[2023-04-08] MEDS: Leflunomide 10 MG TABLET 20 MG PO (10:12)
[2023-04-08] MEDS: Acetaminophen 500 MG Tablet 1000 MG PO ×3 (10:12→22:08)
[2023-04-08] MEDS: Fenofibrate 48 MG Tablet PO (10:13)
[2023-04-08 10:18] LABS: Pathologist Review Reviewed
[2023-04-08 10:20] LABS: Pathologist Review Reviewed
[2023-04-08 14:16] VITALS: BP 90/52; PULSE 63; RESP 17; TEMP 36.6; O2SAT 94
[2023-04-08 17:18] VITALS: BP 102/79; PULSE 62; RESP 17; TEMP 36.6; O2SAT 95
[2023-04-08] MEDS: Atorvastatin Calcium 10 MG Tablet PO (22:08)
[2023-04-08 23:30] VITALS: BP 119/62; PULSE 66; RESP 17; TEMP 36.6; O2SAT 96
[2023-04-09] MEDS: prednisoLONE eye drops (5 mL) 1 DROP OPTH.BTL 1 DRP RIGHT EYE (05:14)
[2023-04-09] MEDS: Acetaminophen 500 MG Tablet 1000 MG PO (05:14)
[2023-04-09 05:30] VITALS: BP 149/84; PULSE 73; RESP 16; TEMP 36.6; O2SAT 93
--- NOTE | 2023-04-09 08:16 | PCM.PN.HOSP ---
Reason for Visit Reason for Visit: Diagnoses Other pulmonary embolism without acute cor pulmonale (04/06/23) Subjective Subjective Patient seen and reports significant improvement in her right-sided pleuritic chest pain. Patient to be assessed for possible discharge with a 6-minute walk Objective Data Objective Data Vital Signs: Vital Signs Temp Pulse Resp BP Pulse Ox O2 Del Method O2 Flow Rate 97.8 F 73 16 149/84 H 93 Room Air 2 04/09/23 05:30 04/09/23 05:30 04/09/23 05:30 04/09/23 05:30 04/09/23 05:30 04/09/23 05:30 04/08/23 03:00 FiO2 98 04/06/23 09:52 Oxygen Flow Rate (L/min) 2 Oxygen Delivery Method Room Air Weight: 123.9 kg Body Mass Index (BMI) 46.8 Intake & Output: Intake and Output for Last 24 Hours 04/07/23 04/08/23 04/09/23 23:59 23:59 23:59 Intake Total 632.80 / 832.80 403.43 / 503.43 120 / 120 Output Total 200 / 200 0 / 0 200 / 200 Balance 432.80 / 632.80 403.43 / 503.43 -80 / -80 Lab / Micro Data 04/09/23 07:45 04/09/23 07:45 Labs: Laboratory Results - last 24 hr 04/06/23 09:47: Diff Path Review Reviewed 04/07/23 06:42: Diff Path Review Reviewed Micro: Microbiology 04/06/23 10:05 Blood Culture (Wb) - Anticubital Left Blood Culture - Preliminary No growth in 48 hours. 04/06/23 10:00 Mucosa - Nose SARS-CoV-2, Influenza & RSV (PCR) - Final Physical Exam Narrative GENERAL: cooperative HEENT: Atraumatic; normocephalic EYES; Anicteric, Normal Conjunctiva NECK; supple, normal thyroid, RESPIRATORY: Diminished to auscultation CARDIOVASCULAR: Regular S1 S2, GI: soft, normoactive bowel sounds, : No Renal angle tenderness; EXTREMITIES: No edema, no clubbing, MUSCULOSKELETAL: no muscle wasting NEURO: Awake; no lateralizing signs. SKIN: No Rash PSYCH; Flat affect Assessment & Plan Assessment/Plan (1) Pulmonary emboli: PLAN: Plan Patient is a 68-year-old lady admitted with progressive shortness of breath. CTA obtained demonstrated extensive bilateral pulmonary embolism with saddle embolus component, right lower lobe with small parapneumonic effusion. Admitted to a monitored bed for further management 1. 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 Patient admitted to a monitored bed started on systemic anticoagulation with heparin. Given the extent of clot and with this being unprovoked patient will need to be on systemic anticoagulation indefinitely. Also did discuss with patient further need to undergo age-related cancer screening to be organized by her primary care physician ? 04/08/2023; patient switched from heparin to apixaban ? 04/09/2023;Patient seen and reports significant improvement in her right-sided pleuritic chest pain. Patient to be assessed for possible discharge with a 6-minute walk 2. Acute cor pulmonale secondary to pulmonary embolism ? On CAT scan ordered 2D echo for subsequent evaluation ? 04/08/2023; 2D echo demonstrated pulmonary arterial pressure 48 mmHg 3. Right lower lobe pneumonia ? Most likely pulmonary infarct with superimposed bacterial infection. Patient started on systemic anticoagulation with Levaquin 4. Hypertension - Blood pressure controlled, home medications continued with dose adjustment as needed 5. Dyslipidemia -Patient is on statin as well as fibrate therapy, continued at home dose 6. Rheumatoid arthritis ? Patient is on leflunomide 7./3 obesity with BMI of 47 ? Complicating care weight loss advised 8. Corneal transplant ? She had this done in February so she is to remain on her eyedrops in the right eye 3 times a day 9. Right-sided pleuritic pain ? Patient started on pain regimen in addition to incentive spirometry Time spent in the patient's overall evaluation,decision-making process, review of diagnostic data, adjustment of management, discussion with other providers, nursing nursing and ancillary staff involved in patient's care documentation, 35 minutes Charges/Coding Visit Charges Inpatient E&M: 56617 Subs Hosp L2
[2023-04-09 08:18] LABS: Absolute Lymphocyte Count 2.06 X10^3/uL (0.83-4.51); Absolute Neutrophil Count 7.9 X10^3/uL (2.0-7.7); Basophil# 0.03 X10^3/uL; Basophil% 0.3 % (0-1); Eosinophil# 0.07 X10^3/uL; Eosinophils% 0.6 % (0-5); Hematocrit 32.4 % (37-47); Hemoglobin 10.2 g/dL (12.0-15.0); Lymphocyte # 2.06 X10^3/ul (0.83-4.51); Lymphocyte % 18.2 % (19-41); Mean Corp Hgb Conc 31.5 g/dL (32-36); Mean Corpuscular Hgb 27.5 pg (27.0-32.0); Mean Corpuscular Volume 87.3 fL (81-99); Monocyte# 1.18 X10^3/uL; Monocyte% 10.4 % (0-10); NRBC Flagged by Analyzer 0 % (0-5); Neutrophil # 7.88 X10^3/uL (2.7-7.7); Neutrophil % 69.4 % (47-70); Platelet Count 273 K/mm3 (150-450); RBC Distribution Width SD 48.3 fl (35.1-43.9); Red Blood Count 3.71 M/mm3 (4.2-5.4); White Blood Count 11.3 K/mm3 (4.4-11.0)
[2023-04-09 08:33] LABS: Anion Gap 5 (5-15); BUN 35 mg/dL (7-18); Chloride 104 mmol/L (98-107); Creatinine, Serum 1.25 mg/dL (0.55-1.02); EST Glomerular Filtration Rate 45 mL/min (>60); Est Glom Filt Rate - Afr Amer 55 mL/min (>60); Estimated Creatinine Clearance 56.02 ml/min; Glucose 111 mg/dL (74-106); Potassium 3.5 mmol/L (3.5-5.1); Sodium Level 136 mmol/L (136-145)
[2023-04-09 08:52] VITALS: O2SAT 86
--- NOTE | 2023-04-09 08:53 | DS.PCM_ITS ---
Providers Date of Admission: 04/06/23 Date of Discharge: 04/09/23 Primary Care Physician: Dr. Madan Velásquez MD Reason For Visit: SADDLE PE Diagnosis Discharge Diagnosis (1) Pulmonary emboli: Status: Acute Code(s): I26.99 - Other pulmonary embolism without acute cor pulmonale Plan Patient is a 68-year-old lady admitted with progressive shortness of breath. CTA obtained demonstrated extensive bilateral pulmonary embolism with saddle embolus component, right lower lobe with small parapneumonic effusion. Admitted to a monitored bed for further management 1. 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 Patient admitted to a monitored bed started on systemic anticoagulation with heparin. Given the extent of clot and with this being unprovoked patient will need to be on systemic anticoagulation indefinitely. Also did discuss with patient further need to undergo age-related cancer screening to be organized by her primary care physician ? 04/08/2023; patient switched from heparin to apixaban ? 04/09/2023;Patient seen and reports significant improvement in her right-sided pleuritic chest pain. Patient to be assessed for possible discharge with a 6- minute walk 2. Acute cor pulmonale secondary to pulmonary embolism ? On CAT scan ordered 2D echo for subsequent evaluation ? 04/08/2023; 2D echo demonstrated pulmonary arterial pressure 48 mmHg 3. Right lower lobe pneumonia ? Most likely pulmonary infarct with superimposed bacterial infection. Patient started on systemic anticoagulation with Levaquin 4. Hypertension - Blood pressure controlled, home medications continued with dose adjustment as needed 5. Dyslipidemia -Patient is on statin as well as fibrate therapy, continued at home dose 6. Rheumatoid arthritis ? Patient is on leflunomide 7./3 obesity with BMI of 47 ? Complicating care weight loss advised 8. Corneal transplant ? She had this done in February so she is to remain on her eyedrops in the right eye 3 times a day 9. Right-sided pleuritic pain ? Patient started on pain regimen in addition to incentive spirometry Time spent in the patient's overall evaluation,decision-making process, review of diagnostic data, adjustment of management, discussion with other providers, nursing nursing and ancillary staff involved in patient's care documentation, 35 minutes Medications at Discharge Home Medications betamethasone dipropionate 0.05 % topical cream 1 applic topical DAILY PRN skin 04/12/19 Handicap Placard #1 ea 12/20/19 calcium carbonate 500 mg calcium (1,250 mg) tablet 500 mg PO DAILY 12/28/19 cholecalciferol (vitamin D3) 25 mcg (1,000 unit) tablet 1,000 unit PO DAILY 12/28/19 acetaminophen 325 mg capsule (Tylenol) 325 mg PO ONCE PRN fever or pain 01/28/20 vibegron 75 mg tablet (Gemtesa) 75 mg PO DAILY 01/31/21 simvastatin 20 mg tablet 20 mg PO QHS #90 tabs 06/14/22 hydrochlorothiazide 25 mg tablet 25 mg PO DAILY #90 tabs 09/18/22 atenolol 50 mg tablet 50 mg PO DAILY #90 tabs 10/21/22 valsartan 320 mg tablet 320 mg PO DAILY #90 tabs 11/13/22 Handicap Placard #1 ea 11/21/22 fenofibrate 54 mg tablet 54 mg PO DAILY #90 tabs 03/18/23 leflunomide 20 mg tablet 20 mg PO DAILY 04/03/23 prednisolone acetate 1 % eye drops,suspension 1 drp ophthalmic (eye) TID 04/03/23 apixaban 5 mg (74 tabs) tablets in a dose pack ([facility] DVT-PE Treat 30D Start) 5 mg PO BID #74 tabs 04/09/23 oxycodone 5 mg tablet 5 mg PO Q4H PRN PRN Pain Score 4-10 5 days #20 tabs 04/09/23 Hospital Course Summary of Care Provided Minutes Spent on Discharge: 35 Physical Exam Narrative GENERAL: cooperative HEENT: Atraumatic; normocephalic EYES; Anicteric, Normal Conjunctiva NECK; supple, normal thyroid, RESPIRATORY: Diminished to auscultation CARDIOVASCULAR: Regular S1 S2, GI: soft, normoactive bowel sounds, : No Renal angle tenderness; EXTREMITIES: No edema, no clubbing, MUSCULOSKELETAL: no muscle wasting NEURO: Awake; no lateralizing signs. SKIN: No Rash PSYCH; Flat affect Weight / BMI Weight Weight: 123.9 kg Body Mass Index (BMI) 46.8 ABG / Lab / Microbiology Data 04/09/23 07:45 04/09/23 07:45 Laboratory: Laboratory Results - last 24 hr 04/06/23 09:47: Diff Path Review Reviewed 04/07/23 06:42: Diff Path Review Reviewed 04/09/23 07:45: WBC 11.3 H, RBC 3.71 L, Hgb 10.2 L, Hct 32.4 L, MCV 87.3, MCH 27.5, MCHC 31.5 L, RDW Std Deviation 48.3 H, RDW Coeff of Liss 15.0 H, Plt Count 273, MPV 9.0, Immature Gran % (Auto) 1.100 H, Neut % (Auto) 69.4, Lymph % (Auto) 18.2 L, Garrard % (Auto) 10.4 H, Eos % (Auto) 0.6, Baso % (Auto) 0.3, Absolute Ne uts (auto) 7.9 H, Absolute Lymphs (auto) 2.06, Nucleated RBC % 0, Sodium 136, Potassium 3.5, Chloride 104, Carbon Dioxide 27.0, Anion Gap 5, BUN 35 H, Cre atinine 1.25 H, Estim Creat Clear Calc 56.02, Est GFR (MDRD) Af Amer 55 L, Est GFR (MDRD) Non-Af 45 L, BUN/Creatinine Ratio 28.0 H, Glucose 111 H, Calcium 10.0 Microbiology: Microbiology 04/06/23 10:05 Blood Culture (Wb) - Anticubital Left Blood Culture - Preliminary No growth in 48 hours. 04/06/23 10:00 Mucosa - Nose SARS-CoV-2, Influenza & RSV (PCR) - Final D/C Instructions Discharge Diet: No restrictions Discharge Activity: Return to Normal Activity Call your doctor if you observe: Fever of 101 or Higher, Shortness of breath, Fainting spells and Chest pain Meaningful Use Info Meaningful Use Diagnoses (Choose all that apply): VTE VTE Anticoag overlap given w/in hospital stay or rx'd at [place]?: No Pt receive overlap for 5 days?: No Reason overlap not ordered, prescribed, or given for 5 days: Treatment Not Indicated Discharge Plan Admission Admit Date/Time: 04/06/23 11:10 Attending Provider: Rickie Hale Primary Care Provider: Madan Velásquez Consulting Providers: Thor Alfred Discharge Orders/Prescriptions Prescriptions: New oxycodone 5 mg Tablet 5 mg PO Q4H PRN PRN (Reason: Pain Score 4-10) 5 Days Qty: 20 0RF Eliquis DVT-PE Treat 30D Start 5 mg (74 tabs) tablets,dose pack 5 mg PO BID Qty: 74 0RF Rx Instructions: 10 mg p.o. twice daily x 7 days and subsequently 5 mg p.o. twice daily Continued betamethasone dipropionate 0.05 % cream 1 applic TOPICAL DAILY PRN (Reason: skin) (DME) Handicap Placard See Rx Instructions .ROUTE .MEDSUPPLY Qty: 1 0RF Rx Instructions: As directed, length of time 3 years acetaminophen [Tylenol] 325 mg capsule 325 mg PO ONCE PRN (Reason: fever or pain) Gemtesa 75 mg tablet 75 mg PO DAILY hydrochlorothiazide 25 mg tablet 25 mg PO DAILY Qty: 90 3RF Hold Instructions: Eye issues: see clinical notes valsartan 320 mg tablet 320 mg PO DAILY Qty: 90 3RF leflunomide 20 mg tablet 20 mg PO DAILY prednisolone acetate 1 % drops,suspension 1 drp ophthalmic (eye) TID Rx Instructions: right eye calcium carbonate 500 MG tablet 500 mg PO DAILY cholecalciferol (vitamin D3) 1,000 UNIT tablet 1,000 unit PO DAILY simvastatin 20 mg tablet 20 mg PO QHS Qty: 90 3RF atenolol 50 mg tablet 50 mg PO DAILY Qty: 90 3RF (DME) Handicap Placard See Rx Instructions .ROUTE .MEDSUPPLY Qty: 1 0RF Rx Instructions: As directed, length of time 3 years fenofibrate 54 mg tablet 54 mg PO DAILY Qty: 90 1RF Discontinued tramadol 50 mg tablet 50 mg PO Q6H PRN (Reason: pain) Referrals / Follow Up: Madan Velásquez MD [Primary Care Provider] - Within 1 Week Disposition Disposition (needs filled in before D/C Order can be placed): Home, Self Care Charges/Coding Visit Charges Inpatient E&M: 01941 Disch Hosp >30min
[2023-04-09 08:58] VITALS: BP 98/86; PULSE 68; RESP 17; TEMP 36.7; O2SAT 93
[2023-04-09] MEDS: Fenofibrate 48 MG Tablet PO (09:09)
[2023-04-09] MEDS: Atenolol 50 MG Tablet PO (09:09)
[2023-04-09] MEDS: APIXABAN 5 MG TABLET 10 MG PO (09:09)
[2023-04-09] MEDS: Leflunomide 10 MG TABLET 20 MG PO (09:10)
[2023-04-09 09:44] VITALS: O2SAT 86; O2SAT 92; O2SAT 94
--- NOTE | 2023-04-09 09:52 | PHA.DC.MC.R ---
Pharmacy [facility] has performed discharge medication reconciliation and counseling for this patient. Patient would like to have medications delivered. RN SANIYA will request delivery when she calls for [employer]. 1. APIXABAN 10MG PO BID X 7 DAYS, THEN 5MG PO BID 2. OXYCODONE 5MG PO Q4H PRN PAIN 4-10 The patient's discharge medication list was reviewed for discrepancies and discrepancies were resolved. The patient was counseled on the following discharge medications and changes in medications for homegoing were reviewed. The Reason for Use, instructions for use, and potential side effects were reviewed for all new medications. The patient's questions regarding all of their medications were answered. The patient was able to verbally demonstrate an understanding of their discharge medications. Medications at Discharge Home Medications betamethasone dipropionate 0.05 % topical cream 1 applic topical DAILY PRN skin 04/12/19 Handicap Placard #1 ea 12/20/19 calcium carbonate 500 mg calcium (1,250 mg) tablet 500 mg PO DAILY 12/28/19 cholecalciferol (vitamin D3) 25 mcg (1,000 unit) tablet 1,000 unit PO DAILY 12/28/19 acetaminophen 325 mg capsule (Tylenol) 325 mg PO ONCE PRN fever or pain 01/28/20 vibegron 75 mg tablet (Gemtesa) 75 mg PO DAILY 01/31/21 simvastatin 20 mg tablet 20 mg PO QHS #90 tabs 06/14/22 hydrochlorothiazide 25 mg tablet 25 mg PO DAILY #90 tabs 09/18/22 atenolol 50 mg tablet 50 mg PO DAILY #90 tabs 10/21/22 valsartan 320 mg tablet 320 mg PO DAILY #90 tabs 11/13/22 Handicap Placard #1 ea 11/21/22 fenofibrate 54 mg tablet 54 mg PO DAILY #90 tabs 03/18/23 leflunomide 20 mg tablet 20 mg PO DAILY 04/03/23 prednisolone acetate 1 % eye drops,suspension 1 drp ophthalmic (eye) TID 04/03/23 apixaban 5 mg (74 tabs) tablets in a dose pack ([email or web address] DVT-PE Treat 30D Start) 5 mg PO BID #74 tabs 04/09/23 oxycodone 5 mg tablet 5 mg PO Q4H PRN PRN Pain Score 4-10 5 days #20 tabs 04/09/23
--- NOTE | 2023-04-09 11:05 | CASEMGMT ---
Patient has order for discharge. Patient qualifies for home oxygen. Script received and referral sent to [facility] [place] [facility], preferred provider. MINI KOTHARI called [facility] regarding Eliquis cost, copay is $35. MINI KOTHARI in to discuss discharge with patient, family at bedside. RN SANIYA updated patient regarding copay on Eliquis. Patient denied further needs or concerns. Patient had no further questions.
[2023-04-09 14:29] LABS: Pathologist Review Reviewed
== END 2023-04-09 12:42 | disposition home or self-care (01) | DRG 175 ==
LOC: ED 11:19 → PCU 11:23
PROVIDERS: Admitting Provider Family Medicine; Emergency Provider Emergency Medicine; PCP Internal Medicine; Visit Provider Internal Medicine
DX: I26.02 Saddle embolus of pulmonary artery with acute cor pulmonale (principal); J15.9 Unspecified bacterial pneumonia; Z68.42 Body mass index [BMI] 45.0-49.9, adult; N18.30 Chronic kidney disease, stage 3 unspecified; M06.9 Rheumatoid arthritis, unspecified; I12.9 Hypertensive chronic kidney disease with stage 1 through stage 4 chronic kidney disease, or unspecified chronic kidney disease; E78.2 Mixed hyperlipidemia; Z94.7 Corneal transplant status; E66.9 Obesity, unspecified; Z79.899 Other long term (current) drug therapy
CPT/HCPCS: 36415; 71045; 71046; 71275; 80048; 83735; 83880; 84100; 84484; 85025; 85379; 85610; 85730; 87040; 87631; 93005; 93306; 94640; 94668; 99285; Q9957; Q9967; A4216

== ENCOUNTER → 2023-04-30 | Outpatient (CLI) | payer MEDICARE, SELFPAY ==
--- OUTSIDE RECORDS SUMMARY | 2023-04-30 08:20 | XMS RPT_ITS | CCD ---
Author Name Unknown Address [address] [facility] [address] [place] [address] Organization [facility] Care Team Providers Care Drop Forger Name Role Phone Santos, Lucy L. Unavailable Unavailable Santos, Lucy L. Unavailable Unavailable Santos, Lucy L. Unavailable Unavailable Santos, Lucy L. Unavailable Unavailable Santos, Lucy L. Unavailable Unavailable Santos, Lucy L. Unavailable Unavailable Santos, Lucy L. Unavailable Unavailable Santos, Lucy LLatia Unavailable Unavailable Madan Velásquez MD Primary Care Provider OLEGHE, EFEWONGBE B Primary Care Unavailable OLEGHE, EFEWONGBE B Primary Care Unavailable KIRAN GIFFORD Attending Unavailable OLEGHE, EFEWONGBE B Primary Care Unavailable KIRAN GIFFORD Attending Unavailable KIRAN GIFFORD Attending Unavailable OLEGHE, EFEWONGBE B Primary Care Unavailable FREDDIE RANDALL Referring Unavailable ARIC CARRILLO Attending Unavailable OLEGHE, EFEWONGBE B Primary Care [...] Allergy Type Date of Onset Reaction(s) Facility (9 sources) Sulfonamides (Antibiotic); Translations: [SULFA (SULFONAMIDE ANTIBIOTICS)] Drug Intolerance 8 [facility] (8 sources) amLODIPine; Translations: [AMLODIPINE] Drug Allergy [address] [facility] (8 sources) Hydroxychloroquin e; Translations: [HYDROXYCHLOROQUI NE] Drug Allergy [address] [facility] Medications Current Medications Medication Drug Class(es) [...] Sig (Original) acetaminophen 325 mg oral capsule (7 sources) Start: 2020 acetaminophen 325 mg cap Take by mouth. 0 2020 Active Problems Active Problems Problem Classification Problem Date Documented Da te Episodic/Chronic Cataract (2 sources) Artificial lens present; Translations: [Presence of intraocular lens] 01-01-2023 Chronic Disorders of lipid metabolism (8 sources) Mixed hyperlipidemia; Translations: [Mixed hyperlipidemia] 06-06-2017 Chronic Essential hypertension (8 sources) Essential hypertension; Translations: [Essential (primary) hypertension] 06-06-2017 Chronic Gout and other crystal arthropathies (8 sources) Gout; Translations: [Gout, unspecified] Onset: 04-07-2018 04-07-2018 Chronic Other connective tissue disease (8 sources) Swelling of lower limb; Translations: [Other specified soft tissue disorders] 06-06-2017 Episodic Other endocrine disorders (8 sources) Adrenal mass; Translations: [Other specified disorders of adrenal gland] Onset: 02-14-2017 06-06-2017 Chronic Other eye disorders (2 sources) Secondary corneal edema; Translations: [Secondary corneal edema, right eye] 01-01-2023 Episodic Other eye disorders (2 sources) Scar of cornea of right eye; Translations: [Unspecified corneal scar and opacity] 01-01-2023 Episodic Other nutritional; endocrine; and metabolic disorders (8 sources) Body mass index 40+ - severely obese; Translations: [Morbid (severe) obesity due to excess calories] 06-06-2017 Chronic Pulmonary heart disease (1 source) Saddle embolus of pulmonary artery; 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] 04-25-2023 Chronic Thyroid disorders (8 sources) Thyroid nodule; Translations: [Nontoxic single thyroid nodule] Onset: 02-14-2017 06-06-2017 Chronic Unclassified (1 source) Unknown / UNK(Unknown) Onset: 09-19-2016 Past or Other Problems Problem Classification Problem Date Documented Da te Episodic/Chronic Other lower respiratory disease (1 source) Dyspnea Onset: 09-19-2016 Episodic Results Test Name Value Interpretation Reference Range Facil ity Vital Signs Date Time Vital Sign Value Performing Clinician Faci lity 04-25-2023 10:33-0500 Body height 164.2 cm Aric Carrillo MD Work Phone: [facility] 04-25-2023 10:33-0500 Body temperature 97.11 [degF] Aric Carrillo MD Work Phone: [facility] 04-25-2023 10:33-0500 Body weight 122.24 kg Aric Carrillo MD Work Phone: [facility] 04-25-2023 10:33-0500 Diastolic blood pressure 70 mm[Hg] Aric Carrillo MD Work Phone: [facility] 04-25-2023 10:33-0500 Heart rate 60 /min Aric Carrillo MD Work Phone: [facility] 04-25-2023 10:33-0500 SaO2% (BldA) [Mass fraction] 96 % Aric Carrillo MD Work Phone: [facility] 04-25-2023 10:33-0500 Systolic blood pressure 105 mm[Hg] Aric Carrillo MD Work Phone: [facility] Encounters Encounter Date Encounter Type Care Provider Facility Start: 04-25-2023 End: 04-25-2023 ambulatory FREDDIE RANDALL Facility:[facility] Start: 04-25-2023 End: 04-25-2023 ambulatory Aric Carrillo MD Work Phone: Hematology/Oncology Procedures Date Procedure Procedure Detail Performing Clinician [...] Detail Author Start: 10-09-2027 Urine microalbumin profile [facility] Start: 04-25-2024 BP Controlled (<130/80) BP Controlle d (<130/80) [facility] Start: 03-17-2023 Advance Directive Discussion Advance Directive Discussion [facility] Start: 03-17-2023 [facility] Start: 11-15-2022 Covid-19 Vaccine ( season) Covid-19 Vaccine ( season) [facility] Start: 11-15-2022 Influenza vaccination C [facility] Start: 10-08-2022 Lipid 1996 panel - S michael or Plasma Lipid Screening [facility] Start: 10-08-2022 Lipid panel Lipid Screening [facility] Start: 10-08-2022 LIPID SCREEN LIPID SCREEN [facility] Start: 03-17-2022 ADVANCE DIRECTIVE DISCUSSION ADVANCE DIRECTIVE DISCUSSION [facility] Start: 03-17-2022 [facility]ION [facility]MENT [facility] Start: 01-31-2022 Pneumococcal Vaccine : 65+ (2 - PPSV23 or PCV20) Pneumococcal Vaccine: 65+ (2 - PPSV23 or PCV20) [facility] Start: 03-31-2021 DIABETES SCREEN DIABETES SCREEN [facility] Start: 03-31-2021 Diabetes Screening Diabetes Screenin g [facility] Start: 03-28-2021 Pneumococcal Vaccine : 65+ (2 of 2 - PPSV23 or PCV20) Pneumococcal Vaccine: 65+ (2 of 2 - PPSV23 or PCV20) [facility] Start: 05-16-2020 Colonoscopy Colonoscopy [facility] Start: 05-16-2020 Colorectal Cancer Screening Colorectal Cancer Screening [facility] Start: 05-16-2020 Screening for malign ant neoplasm of colon [facility] Start: 01-29-2020 BONE DENSITY BONE DENSITY [facility] Start: 01-29-2020 Bone Density Screening Bone Density Screening [facility] Start: 01-29-2020 Pneumococcal Vaccine : 65+ (1 - PCV) Pneumococcal Vaccine: 65+ (1 - PCV) [facility] Start: 01-29-2020 PNEUMOCOCCAL: 65+ (1 - PCV) PNEUMOCOCCAL: 65+ (1 - PCV) [facility] Start: 01-29-2020 Screening for osteoporosis Bone Dens ity Screening [facility] Start: 10-06-2019 Annual PCP Team Public Speaking Teacher armando Disease Visit Annual PCP Team Chronic Disease Visit [facility] Start: 10-08-2018 BP Controlled (<130/80) BP Controlle d (<130/80) [facility] Start: 06-26-[address] [facility] Start: 06-26-2018 Screening for malign ant neoplasm of breast Mammogram Screening [facility] Start: 2015 RSV Vaccine (1 - 1-d ose 60+ series) RSV Vaccine (1 - 1-dose 60+ series) [facility] Start: 2005 SHINGRIX VACCINE (1 of 2) SHINGRIX V ACCINE (1 of 2) [facility] Start: 01-29-2000 COLOGUARD (FIT-DNA) COLOGUARD (FIT-D NA) [facility] Start: 01-29-2000 Colonoscopy COLONOSCOPY [facility] Start: 01-29-2000 COLORECTAL CANCER SCREENING COLORECTAL CANCER SCREENING [facility] Start: 01-29-[address] COLONOGRAPHY [facility] Start: 01-29-2000 FECAL OCCULT BLOOD FECAL OCCULT BLOO D [facility] Start: 01-29-2000 Screening for malign ant neoplasm of colon [facility] Start: 01-29-2000 SIGMOIDOSCOPY SIGMOIDOSCOPY [facility] Start: 1974 Shingrix Vaccine (1 of 2) Shingrix V accine (1 of 2) [facility] Start: 1955 COVID-19 VACCINE (#1) COVID-19 [facility]ACCI NE (#[facility] Immunizations Immunization Date Immunization Notes Care Provider Fa bethany 04-07-2018 influenza virus vacc ine, unspecified formulation Kiran Gifford MD Work Phone: [facility] Payers Date Payer Category Payer Medicare [employer] MEDICARE [employer] MEDICARE PPO [id number] 2020-Present [phone] [address] [place] [address] PPO [id number] 2020 Medicare [id number] 2015 Unknown [id number] Social History Date Type Detail Facility Start: 06-06-2017 End: 12-04-2022 Tobacco smoking status NHIS Never smoked tobacco [facility] Start: 06-06-2017 End: 12-04-2022 Tobacco use and exposure Smokeless tobacco non-user [facility] Start: 10-05-2018 End: 04-25-2023 Alcohol intake Current non-drinker of alcohol (finding) [facility] Start: 10-05-2018 End: 01-29-2023 History of Social function [facility] Start: 10-05-2018 End: 01-29-2023 Tobacco use panel [facility] Adult Depression Scr eening Assessment [address] [facility] Start: 1955 Sex Assigned At Not on file C [facility] Medical Equipment Procedure Code Equipment Code Equipment Origin al Text Equipment Identifier Dates Cornea Tissue Pre-Loaded [id number] - [id number] Start: 02-28-2023 Gas Ispan [employer] Intraocular Vision System [id number] - [id number] Start: 02-28-2023 Clinical Notes 11-22-2022 to 04-25-2023 Aric Carrillo MD - 04/25/2023 10:39 AM ESTPatient Kiran Milton MD - 03/05/2023 11:11 AM ESTPatient KarineKiran MD - 03/01/2023 1:31 PM EST Note Date & Type Note Facility 04-25-2023 Note HNO ID: [id number] Author: ARIC CARRILLO MD Service: ? Author Type: Physician Type: Progress Notes Filed: 04/25/2023 15:47 Note Text: HISTORY OF PRESENT ILLNESS: Anh Ewing is a 68 year old female some chronic health issues March 2023 developed significant dyspnea, over 1 week. Finally went to ER 04-06-23, CTA chest shows extensive clot with saddle component. Placed on heparin now on eliquis. No clear provoking factor. Had prior carpal tunnel surgery, corneal transplant. No family history. No preceding immobilization. Cancer screening is up to date. Colonoscopy, mammogram and PAP UTD. CLINICAL IMPRESSION: Unprovoked PE with significant clot burden. As she is on DOAC can't do full hypercoag panel. However any result we might find on this testing will not change recommendation of indefinite anticoagulation given severity of PE and unprovoked nature. RECOMMENDATION/PLAN: 1. Agree with plan for indefinite ac with eliquis. Written and verbal health teaching given to patient, patient verbalizes understanding and agrees with treatment plan. PAST MEDICAL HISTORY Diagnosis Date Adrenal nodule (HCC) 02/2017 18 mm right nodule Arthritis, rheumatoid (HCC) Dyslipidemia Essential hypertension Leg swelling Mild intermittent asthma Mixed hyperlipidemia Morbid obesity with BMI of 45.0-49.9, adult (HCC) Pneumonia hospitalized in her 40s for this Thyroid nodule 02/2017 negative biopsy 02/2017 PAST SURGICAL HISTORY Procedure Laterality Date CHOLECYSTECTOMY HX CORNEAL TRANSPLANT,LAMELLAR Right 02/28/2023 ENDOTHELIAL KERATOPLASTY(DMEK) Right 02/28/2023 REMV CATARACT EXTRACAP,INSERT LENS Bilateral 2020 REVISE MEDIAN N/CARPAL TUNNEL SURG Right 12/2022 TUBAL LIGATION HX FAMILY HISTORY Problem Relation Age of Onset Hypertension Mother Ischemic Heart Disease Mother Hypertension Father Ischemic Heart Disease Father Ischemic Heart Disease Brother 50 No Known Problems Brother Heart Brother Heart Maternal Grandmother Breast Cancer Paternal Grandmother Social History Tobacco Use Smoking status: Never Smokeless tobacco: Never Vaping Use Vaping Use: Never used Substance Use Topics Alcohol use: No Drug use: No ALLERGIES: ALLERGIES Allergen Reactions Amlodipine Swelling Hydroxychloroquine Hives Sulfa (Sulfonamide * Hives CURRENT OUTPATIENT MEDICATIONS: ELIQUIS 5 mg tab(s) Take 5 mg by mouth two times a day. prednisoLONE acetate (PRED FORTE) 1 % ophthalmic suspension instill 1 drop into right eye three times a day hydroCHLOROthiazide 25 mg tablet Take 25 mg by mouth once daily. leflunomide (ARAVA) 20 mg tablet Take 20 mg by mouth once daily. cholecalciferol (VITAMIN D3) 1,000 unit tab tablet Take 1,000 Units by mouth once daily. calcium carbonate (OS-TAHIR 500) 500 mg calcium (1,250 mg) tablet Take 1 tablet by mouth once daily. Fenofibrate (LOFIBRA) 54 mg tablet Take 54 mg by mouth once daily. betamethasone dipropionate (DIPROSONE) 0.05 % cream Apply to affected area. acetaminophen 325 mg cap Take by mouth. GEMTESA 75 mg tablet Take 75 mg by mouth once daily. simvastatin (ZOCOR) 20 mg tablet Take 1 tablet by mouth daily at bedtime. albuterol HFA (PROAIR HFA) 90 mcg/actuation inhaler 2 Puffs every 6 hours as needed. Take as directed valsartan (DIOVAN) 320 mg tablet Take 1 tablet by mouth once daily. atenolol (TENORMIN) 50 mg tablet Take 2 tablets by mouth once daily. ganciclovir (ZIRGAN) 0.15 % ophthalmic gel Use 1 Drop in the right eye five times daily. (Patient not taking: Reported on 04/02/2023) valACYclovir (VALTREX) 1 gram Take 1 tablet by mouth every 12 (twelve) hours. (Patient not taking: Reported on 04/25/2023) traMADol (ULTRAM) 50 mg tablet Take 50 mg by mouth three times daily as needed. (Patient not taking: Reported on 04/25/2023) hydrALAZINE (APRESOLINE) 50 mg tablet (Patient not taking: Reported on 04/25/2023) TURMERIC ROOT EXTRACT ORAL Take 400 mg by mouth. (Patient not taking: Reported on 04/25/2023) sodium chloride (NIKOLAY 128) 5 % ophthalmic ointment Use 1 application in the right eye daily at bedtime. (Patient not taking: Reported on 04/02/2023) amLODIPine (NORVASC) 10 mg tablet Take 1 tablet by mouth once daily. (Patient not taking: Reported on 04/25/2023) furosemide (LASIX) 40 mg tablet Take 1 tablet by mouth once daily. (Patient not taking: Reported on 04/25/2023) Ciclopirox (LOPROX) 8 % solution Apply 1 application to affected area daily at bedtime. (Patient not taking: Reported on 04/25/2023) REVIEW OF SYSTEMS: GENERAL: No fever, night sweats, weight loss or malaise. All other reviewed and negative other than HPI. PHYSICAL EXAMINATION: VITAL SIGNS: BP 105/70 Pulse 60 Temp 97.1 Ht 5' 4.665 (1.64m) Wt 269 lb 8 oz (122.2kg) SpO2 96% BMI 45.34 kg/(m2). GENERAL APPEARANCE: Well appearing, in no acute distress, alert and oriented x3, well-hydrated, well nourished. I spent a total of 45 minute (more content not included)... [facility] 04-25-2023 History of Presen t illness Narrative HISTORY OF PRESENT ILLNESS: Anh Ewing is a 68 year old female some chronic health issues March 2023 developed significant dyspnea, over 1 week. Finally went to ER 04-06-23, CTA chest shows extensive clot with saddle component. Placed on heparin now on eliquis. No clear provoking factor. Had prior carpal tunnel surgery, corneal transplant. No family history. No preceding immobilization. Cancer screening is up to date. Colonoscopy, mammogram and PAP UTD. CLINICAL IMPRESSION: Unprovoked PE with significant clot burden. As she is on DOAC can't do full hypercoag panel. However any result we might find on this testing will not change recommendation of indefinite anticoagulation given severity of PE and unprovoked nature. RECOMMENDATION/PLAN: 1. Agree with plan for indefinite ac with eliquis. Written and verbal health teaching given to patient, patient verbalizes understanding and agrees with treatment plan. PAST MEDICAL HISTORY Diagnosis Date Adrenal nodule (HCC) 02/2017 18 mm right nodule Arthritis, rheumatoid (HCC) Dyslipidemia Essential hypertension Leg swelling Mild intermittent asthma Mixed hyperlipidemia Morbid obesity with BMI of 45.0-49.9, adult (HCC) Pneumonia hospitalized in her 40s for this Thyroid nodule 02/2017 negative biopsy 02/2017 PAST SURGICAL HISTORY Procedure Laterality Date CHOLECYSTECTOMY HX CORNEAL TRANSPLANT,LAMELLAR Right 02/28/2023 ENDOTHELIAL KERATOPLASTY(DMEK) Right 02/28/2023 REMV CATARACT EXTRACAP,INSERT LENS Bilateral 2020 REVISE MEDIAN N/CARPAL TUNNEL SURG Right 12/2022 TUBAL LIGATION HX FAMILY HISTORY Problem Relation Age of Onset Hypertension Mother Ischemic Heart Disease Mother Hypertension Father Ischemic Heart Disease Father Ischemic Heart Disease Brother 50 No Known Problems Brother Heart Brother Heart Maternal Grandmother Breast Cancer Paternal Grandmother Social History Tobacco Use Smoking status: Never Smokeless tobacco: Never Vaping Use Vaping Use: Never used Substance Use Topics Alcohol use: No Drug use: No ALLERGIES: ALLERGIES Allergen Reactions Amlodipine Swelling Hydroxychloroquine Hives Sulfa (Sulfonamide * Hives CURRENT OUTPATIENT MEDICATIONS: ELIQUIS 5 mg tab(s) Take 5 mg by mouth two times a day. prednisoLONE acetate (PRED FORTE) 1 % ophthalmic suspension instill 1 drop into right eye three times a day hydroCHLOROthiazide 25 mg tablet Take 25 mg by mouth once daily. leflunomide (ARAVA) 20 mg tablet Take 20 mg by mouth once daily. cholecalciferol (VITAMIN D3) 1,000 unit tab tablet Take 1,000 Units by mouth once daily. calcium carbonate (OS-TAHIR 500) 500 mg calcium (1,250 mg) tablet Take 1 tablet by mouth once daily. Fenofibrate (LOFIBRA) 54 mg tablet Take 54 mg by mouth once daily. betamethasone dipropionate (DIPROSONE) 0.05 % cream Apply to affected area. acetaminophen 325 mg cap Take by mouth. GEMTESA 75 mg tablet Take 75 mg by mouth once daily. simvastatin (ZOCOR) 20 mg tablet Take 1 tablet by mouth daily at bedtime. albuterol HFA (PROAIR HFA) 90 mcg/actuation inhaler 2 Puffs every 6 hours as needed. Take as directed valsartan (DIOVAN) 320 mg tablet Take 1 tablet by mouth once daily. atenolol (TENORMIN) 50 mg tablet Take 2 tablets by mouth once daily. ganciclovir (ZIRGAN) 0.15 % ophthalmic gel Use 1 Drop in the right eye five times daily. (Patient not taking: Reported on 04/02/2023) valACYclovir (VALTREX) 1 gram Take 1 tablet by mouth every 12 (twelve) hours. (Patient not taking: Reported on 04/25/2023) traMADol (ULTRAM) 50 mg tablet Take 50 mg by mouth three times daily as needed. (Patient not taking: Reported on 04/25/2023) hydrALAZINE (APRESOLINE) 50 mg tablet (Patient not taking: Reported on 04/25/2023) TURMERIC ROOT EXTRACT ORAL Take 400 mg by mouth. (Patient not taking: Reported on 04/25/2023) sodium chloride (NIKOLAY 128) 5 % ophthalmic ointment Use 1 application in the right eye daily at bedtime. (Patient not taking: Reported on 04/02/2023) amLODIPine (NORVASC) 10 mg tablet Take 1 tablet by mouth once daily. (Patient not taking: Reported on 04/25/2023) furosemide (LASIX) 40 mg tablet Take 1 tablet by mouth once daily. (Patient not taking: Reported on 04/25/2023) Ciclopirox (LOPROX) 8 % solution Apply 1 application to affected area daily at bedtime. (Patient not taking: Reported on 04/25/2023) REVIEW OF SYSTEMS: GENERAL: No fever, night sweats, weight loss or malaise. All other reviewed and negative other than HPI. PHYSICAL EXAMINATION: VITAL SIGNS: BP 105/70 Pulse 60 Temp 97.1 Ht 5' 4.665 (1.64m) Wt 269 lb 8 oz (122.2kg) SpO2 96% BMI 45.34 kg/(m^2). GENERAL APPEARANCE: Well appearing, in no acute distress, alert and oriented x3, well-hydrated, well nourished. I spent a total of 45 minutes on the date of the service which included preparing to see the patient, [id number] patient care, completing clinical documentation, obtaining and/or reviewing separately obtained history, counseling and educating the patient/family/caregiver, communicating with other HCPs (not separately reported), independently interpreting results (not separately reported), and communicating results to the patient/family/caregiver. ' Electronically Signed: Aric Carrillo MD April 25, 2023 10:39 AM documented in this encounter [facility] 04-02-2023 Note HNO ID: [id number] Author: KIRAN GIFFORD MD Service: ? Author [...] of its relevant components. Kiran Gifford MD [facility] 03-12-2023 Note HNO ID: [id number] Author: Kiran Gifford MD Service: ? Author [...] of its relevant components. Kiran Gifford MD [facility] 03-05-2023 Note HNO ID: [id number] Author: Kiran Gifford MD Service: ? Author [...] of its relevant components. Kiran Gifford MD [facility] 03-05-2023 Instructions Kiran Gifford MD - 03/05/2023 11:12 AM EST -prednisolone 4x daily right eye -vigamox four times a day right eye -lie flat on back every two hours -precautions documented in this encounter [facility] 03-05-2023 History of Presen t illness [...] Kiran Gifford MD documented in this encounter [facility] 03-01-2023 Note HNO ID: [id number] Author: Kiran Gifford MD Service: ? Author [...] of its relevant components. Kiran Gifford MD [facility] 03-01-2023 Instructions Kiran Gifford MD - 03/01/2023 1:32 PM EST Images from the original note were not included. documented in this encounter [facility] 03-01-2023 History of Presen t illness [...] Kiran Gifford MD documented in this encounter [facility] documented as of this encounter (statuses as of 03/01/2023) [facility]12-15-2023 History of Past illness Narrative* Problem Noted Date Diagnosed Date Resolved Date Corneal edema, secondary, right 02/28/2023 02/28/2023 documented as of this encounter (statuses as of 03/06/2023) [facility]12-15-2023 History of Past illness Narrative* Problem Noted Date Diagnosed Date Resolved Date Corneal edema, secondary, right 02/28/2023 02/28/2023 documented as of this encounter (statuses as of 04/25/2023) [facility]11-08-2023 NoteHNO ID: [id number] Author: Kiran Gifford MD Service: ? Author [...] all of its relevant components. Kiran Gifford, [facility]11-08-2023 Instructions* Patient Instructions* Kiran Gifford MD - 01/22/2023 9:36 AM EST -Tre White (surgical scheduling): [phone] [facility] History of Present illness Narrative* Kiran [...] components. Kiran Gifford MD [facility] Miscellaneous Notes* Telephone Encounter - Cherise [...] which she is under the care of [facility] to control her hypertension. Patient states she started these medications shortly before she started to experience the eye pain in the right eye. Patient spoke with the [facility] and they advised that she [...] asking for a phone call back at [phone]. Review and advise. [facility]23 NoteHNO ID: [id number] Author: Kiran Gifford MD Service: ? Author [...] all of its relevant components. Kiran Gifford, [facility]10-18-2023 History of Present illness Narrative* Kiran Gifford [...] others. I have seen and examined Anh Mary Ewing. I have discussed the case and the management of this patient's care with the Resident/Fellow, if applicable. I also have reviewed and agree with the assessment and plan as stated above and agree withall of its relevant components. Kiran Gifford MD documented in [facility] Miscellaneous Notes* Telephone Encounter - Abbi Cole - 12/27/2022 10:59 AM EDT Ptient called wanting to let you know she is having carpel tunnel surgery on 01/07 and didn't know if it would affect her eyes.Abbi Dahl documented in this encounterMer[facility]09-27-2023 NoteHNO ID: [id number] Author: Kiran Gifford MD Service: ? Author [...] - will need to -back to Dr. Sual afterwards -if develops more pain in the [...] all of its relevant components. Kiran Gifford, [facility]09-20-2023 NoteHNO ID: [id number] Author: Kiran Gifford MD Service: ? Author [...] Kiran Gifford MD December 04, 2022 9:09 [facility]09-08-2023 Miscellaneous Notes* Telephone Encounter - Charlotte Valencia OA - 11/22/2022 3:45 PM EDT Spoke with Randee brar at the [facility] regarding this patient's referral to Dr. Gifford. She stated that the patient is scheduled to see one of their providers on Friday11/25/2022 for a follow up. Patient is scheduled to then follow up with Dr. Gifford for a consult on 12/04/2022. This patient has also been added to the wait list for a cancellation. Please advise MARRY Nelson documented in this encounterMer[facility]* Diagnosis Corneal edema, secondary, right- Primary Corneal scar, right eye Corneal opacity, unspecified Pseudophakia Lens replaced by other means Corneal edema, secondary, right documented in this encounter [facility] [place] [facility]* Diagnosis Corneal edema, secondary, right- Primary Corneal scar, right eye Corneal opacity, unspecified Pseudophakia Lens replaced by other means Corneal edema, secondary, right documented [facility]* Diagnosis Status post corneal transplant- Primary Cornea replaced by transplant documented in this encounter 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 Summary Purpose Family History No Family History Records FoundNo Family History Records FoundNo Family History Records Found Advance Directives No Advanced Directives Records FoundNo Advanced Directives Records FoundNo Advanced Directives Records Found Additional Source Comments INFORMATION SOURCE (unrecogn ized section and content) DATE CREATED AUTHOR AUTHOR'S ORGANIZ ATION 09/08/2017 [facility] [place] DATE CREATED AUTHOR AUTHOR'S ORGANIZ ATION 04/26/2023 [facility] Source Comments (unrecognize d section and content) In the event this informatio n is protected by the Federal Confidentiality of Alcohol and Drug Abuse Patient Records regulations: The Federal rules restrict any use of the information to criminally investigate or prosecute any alcohol or drug abuse patient.[facility] HospitalIn the event this information is protected by the Federal Confidentiality of Alcohol and Drug Abuse Patient Records regulations: The Federal rules restrict any use of the information to criminally investigate or prosecute any alcohol or drug abuse patient.[facility] HospitalIn the event this information is protected by the Federal Confidentiality of Alcohol and Drug Abuse Patient Records regulations: The Federal rules restrict any use of the information to criminally investigate or prosecute any alcohol or drug abuse patient.[facility] HospitalIn the event this information is protected by the Federal Confidentiality of Alcohol and Drug Abuse Patient Records regulations: The Federal rules restrict any use of the information to criminally investigate or prosecute any alcohol or drug abuse patient.[facility] HospitalIn the event this information is protected by the Federal Confidentiality of Alcohol and Drug Abuse Patient Records regulations: The Federal rules restrict any use of the information to criminally investigate or prosecute any alcohol or drug abuse patient.[facility] HospitalIn the event this information is protected by the Federal Confidentiality of Alcohol and Drug Abuse Patient Records regulations: The Federal rules restrict any use of the information to criminally investigate or prosecute any alcohol or drug abuse patient.[facility] HospitalIn the event this information is protected by the Federal Confidentiality of Alcohol and Drug Abuse Patient Records regulations: The Federal rules restrict any use of the information to criminally investigate or prosecute any alcohol or drug abuse patient.[facility] HospitalIn the event this information is protected by the Federal Confidentiality of Alcohol and Drug Abuse Patient Records regulations: The Federal rules restrict any use of the information to criminally investigate or prosecute any alcohol or drug abuse patient.[facility] Reason for Visit (unrecogniz ed section and content) Reason Comments Corneal Edema Follow Up Reason Comments Patient Question Reason Comments Post-op (Ophthalmology) Right Eye Reason Comments New Patient Care Teams (unrecognized sec tion and content) Drop Forger Relationship Specialty Start Date End Date Madan Velásquez MD [address] [place] [address] PCP - General Internal Medicine 07/04/20 Drop Forger Relationship Specialty Start Date End Date Madan Velásquez MD [address] [place] [address] PCP - General Internal Medicine 07/04/20 Drop Forger Relationship Specialty Start Date End Date Madan Velásquez MD [address] [place] [address] PCP - General Internal Medicine 07/04/20 Drop Forger Relationship Specialty Start Date End Date Madan Velásquez MD [address] [place] [address] PCP - General Internal Medicine 07/04/20 Drop Forger Relationship Specialty Start Date End Date Madan Velásquez MD [address] [place] [address] PCP - General Internal Medicine 07/04/20 Drop Forger Relationship Specialty Start Date End Date Madan Velásquez MD [address] [place] [phone] PCP - General Internal Medicine 07/04/20 FOR [...] BE BASED ON THE PRIMARY CLINICAL RECORDS. [facility]. provides no warranty or guarantee of the accuracy or completeness of information in this document.
[2023-05-01 14:09] LABS: Adrenocorticotropic Hormone < 1.5 pg/mL (7.2-63.3)
== END | disposition home or self-care (01) ==
LOC: LAB 07:52
PROVIDERS: Physician Assistant; PCP Internal Medicine; Referring Provider Nurse Practitioner; Visit Provider Nurse Practitioner
DX: N18.30 Chronic kidney disease, stage 3 unspecified (principal)
CPT/HCPCS: 36415; 82024; 82533

== ENCOUNTER → 2023-05-02 | Outpatient (CLI) | payer MEDICARE, SELFPAY ==
--- OUTSIDE RECORDS SUMMARY | 2023-05-02 06:37 | XMS RPT_ITS | CCD ---
Author Name Unknown Address [address] [place] [address] Organization [facility] Care Team Providers Care Antisqueak Chalker Name Role Phone Santos, Lucy L. Unavailable Unavailable Santos, Lucy L. Unavailable Unavailable Santos, Lucy L. Unavailable Unavailable Santos, Lucy L. Unavailable Unavailable Santos, Lucy L. Unavailable Unavailable Santos, Lucy L. Unavailable Unavailable Santos, Lucy L. Unavailable Unavailable Santos, Lucy LLatia Unavailable Unavailable Madan Velásquez MD Primary Care Provider [phone] OLEGHE, EFEWONGBE B Primary Care Unavailable OLEGHE, [...] Translations: [SULFA (SULFONAMIDE ANTIBIOTICS)] Drug Intolerance 8 [facility] (8 sources) amLODIPine; Translations: [AMLODIPINE] Drug Allergy 3 Swelling [facility] (8 sources) Hydroxychloroquin e; Translations: [HYDROXYCHLOROQUI NE] Drug Allergy 3 Hives [facility] Medications Current Medications Medication Drug Class(es) [...] 164.2 cm Aric Carrillo MD Work Phone: [facility] 04-25-2023 10:33-0500 Body temperature 97.11 [degF] Aric Carrillo MD Work Phone: [facility] 04-25-2023 10:33-0500 Body weight 122.24 kg Aric Carrillo MD Work Phone: [facility] 04-25-2023 10:33-0500 Diastolic blood pressure 70 mm[Hg] Aric Carrillo MD Work Phone: [facility] 04-25-2023 10:33-0500 Heart rate 60 /min Aric Carrillo MD Work Phone: [facility] 04-25-2023 10:33-0500 SaO2% (BldA) [Mass fraction] 96 % Aric Carrillo MD Work Phone: [facility] 04-25-2023 10:33-0500 Systolic blood pressure 105 mm[Hg] Aric Carrillo MD Work Phone: [facility] Encounters Encounter Date Encounter Type Care Provider Facility Start: 04-25-2023 End: 04-25-2023 ambulatory FREDDIE RANDALL Facility:[facility] Start: 04-25-2023 End: 04-25-2023 ambulatory [...] Start: 10-09-2027 Urine microalbumin profile [facility] Start: 04-25-2024 BP Controlled (<130/80) BP Controlle d (<130/80) [facility] Start: 03-17-2023 Advance Directive Discussion Advance Directive Discussion [facility] Start: 03-17-2023 Depression [facility] Start: 11-15-2022 Covid-19 Vaccine ( season) Covid-19 Vaccine ( season) [facility] Start: 11-15-2022 Influenza vaccination [facility] Start: 10-08-2022 Lipid 1996 panel - S michael or Plasma Lipid Screening [facility] Start: 10-08-2022 Lipid panel Lipid Screening [facility] Start: 10-08-2022 LIPID SCREEN LIPID SCREEN [facility] Start: 03-17-2022 ADVANCE DIRECTIVE DISCUSSION ADVANCE DIRECTIVE DISCUSSION [facility] Start: 03-17-2022 DEPRESSION [facility]MENT [facility] Start: 01-31-2022 Pneumococcal Vaccine : 65+ (2 - PPSV23 or PCV20) Pneumococcal Vaccine: 65+ (2 - PPSV23 or PCV20) [facility] Start: 03-31-2021 DIABETES SCREEN DIABETES SCREEN [facility] Start: 03-31-2021 Diabetes Screening Diabetes Screenin g [facility] Start: 03-28-2021 Pneumococcal Vaccine : 65+ (2 of 2 - PPSV23 or PCV20) Pneumococcal Vaccine: 65+ (2 of 2 - PPSV23 or PCV20) [facility] Start: 05-16-2020 Colonoscopy Colonoscopy [facility] Start: 05-16-2020 Colorectal Cancer Screening Colorectal Cancer Screening [facility] Start: 05-16-2020 Screening for malign ant neoplasm of colon [facility] Start: 01-29-2020 BONE DENSITY BONE DENSITY [facility] Start: 01-29-2020 Bone Density Screening Bone Density Screening [facility] Start: 01-29-2020 Pneumococcal Vaccine : 65+ (1 - PCV) Pneumococcal Vaccine: 65+ (1 - PCV) [facility] Start: 01-29-2020 PNEUMOCOCCAL: 65+ (1 - PCV) PNEUMOCOCCAL: 65+ (1 - PCV) [facility] Start: 01-29-2020 Screening for osteoporosis Bone Dens ity Screening [facility] Start: 10-06-2019 Annual PCP Team [employer] armando Disease Visit Annual PCP Team Chronic Disease Visit [facility] Start: 10-08-2018 BP Controlled (<130/80) BP Controlle d (<130/80) [facility] Start: 06-26-2018 Mammography [facility] Start: 06-26-2018 Screening for malign ant neoplasm of breast Mammogram Screening [facility] Start: 2015 RSV Vaccine (1 - 1-d ose 60+ series) RSV Vaccine (1 - 1-dose 60+ series) [facility] Start: 2005 SHINGRIX VACCINE (1 of 2) SHINGRIX V ACCINE (1 of 2) [facility] Start: 01-29-2000 COLOGUARD (FIT-DNA) COLOGUARD (FIT-D NA) [facility] Start: 01-29-2000 Colonoscopy COLONOSCOPY [facility] Start: 01-29-2000 COLORECTAL CANCER SCREENING COLORECTAL CANCER SCREENING [facility] Start: 01-29-[address] COLONOGRAPHY [facility] Start: 01-29-2000 FECAL OCCULT BLOOD FECAL OCCULT BLOO D [facility] Start: 01-29-2000 Screening for malign ant neoplasm of colon [facility] Start: 01-29-2000 SIGMOIDOSCOPY SIGMOIDOSCOPY [facility] Start: 1974 Shingrix Vaccine (1 of 2) Shingrix V accine (1 of 2) [facility] Start: 1955 COVID-19 VACCINE (#1) COVID-19 VACCI NE (#1[facility] Immunizations Immunization Date Immunization Notes Care Provider Fa bethany 04-07-2018 influenza virus vacc ine, unspecified formulation Kiran Gifford MD Work Phone: [facility] Payers Date Payer Category Payer Medicare [employer] MEDICARE [employer] MEDICARE PPO [id number] 2020-Present [phone] [id number] [place] [address] PPO [id number] 2020 Medicare [id number] 2015 Unknown [id number] Social History Date Type Detail Facility Start: 06-06-2017 End: 12-04-2022 Tobacco smoking status NHIS Never smoked tobacco [facility] Start: 06-06-2017 End: 12-04-2022 Tobacco use and exposure Smokeless tobacco non-user [facility] Start: 10-05-2018 End: 04-25-2023 Alcohol intake Current non-drinker of alcohol (finding) [facility] Start: 10-05-2018 End: 01-29-2023 History of Social function [place] [facility] Start: 10-05-2018 End: 01-29-2023 Tobacco use panel [facility] Adult Depression Scr eening Assessment 0 [facility] Start: 1955 Sex Assigned At Not on file [facility] Medical Equipment Procedure Code Equipment Code Equipment Origin al Text Equipment Identifier Dates Cornea Tissue Pre-Loaded [id number] - [id number] Start: 02-28-2023 Gas Ispan Constellation Intraocular Vision System [id number] - [id number] Start: 02-28-2023 Clinical Notes 11-22-2022 to 04-25-2023 Aric Carrillo MD - 04/25/2023 10:39 AM ESTPatient Kiran Milton MD - 03/05/2023 11:11 AM ESTPatient KarineKiran MD - 03/01/2023 1:31 PM EST Note Date & Type Note Facility 04-25-2023 Note HNO ID: [id number] Author: ARIC CARRILLO MD Service: ? Author [...] of 45 minute (more content not included)... [facility] 04-25-2023 History of Presen t illness Narrative [...] which included preparing to see the patient, [id number] patient care, completing clinical documentation, obtaining and/or reviewing separately obtained history, counseling and educating the patient/family/caregiver, communicating with other HCPs (not separately reported), independently interpreting results (not separately reported), and communicating results to the patient/family/caregiver. ' Electronically Signed: Aric Carrillo MD April 25, 2023 10:39 AM documented in this encounter [facility] 04-02-2023 Note HNO ID: [id number] Author: KIRAN GIFFORD MD Service: ? Author [...] of its relevant components. Kiran Gifford MD [facility] 03-12-2023 Note HNO ID: [id number] Author: Kiran Gifford MD Service: ? Author [...] of its relevant components. Kiran Gifford MD [facility] 03-05-2023 Note HNO ID: [id number] Author: Kiran Gifford MD Service: ? Author [...] of its relevant components. Kiran Gifford MD [facility] 03-05-2023 Instructions Kiran Gifford MD - 03/05/2023 11:12 AM EST -prednisolone 4x daily right eye -vigamox four times a day right eye -lie flat on back every two hours -precautions documented in this encounter [facility] 03-05-2023 History of Presen t illness [...] MD documented in this encounter [facility] 03-01-2023 Note HNO ID: [id number] Author: Kiran Gifford MD Service: ? Author [...] of its relevant components. Kiran Gifford MD [facility] 03-01-2023 Instructions Kiran Gifford MD - 03/01/2023 1:32 PM EST Images from the original note were not included. documented in this encounter [facility] 03-01-2023 History of Presen t illness [...] MD documented in this encounter [facility] documented as of this encounter (statuses as of 03/01/2023) [facility]12-15-2023 History of Past illness Narrative* Problem Noted Date Diagnosed Date Resolved Date Corneal edema, secondary, right 02/28/2023 02/28/2023 documented as of this encounter (statuses as of 03/06/2023) [facility]12-15-2023 History of Past illness Narrative* Problem Noted Date Diagnosed Date Resolved Date Corneal edema, secondary, right 02/28/2023 02/28/2023 documented as of this encounter (statuses as of 04/25/2023) [facility]11-08-2023 NoteHNO ID: [id number] Author: Kiran Gifford MD Service: ? Author [...] all of its relevant components. Kiran Gifford, [facility]11-08-2023 Instructions* Patient Instructions* Kiran Gifford MD - 01/22/2023 9:36 AM EST -Tre White (surgical scheduling): [phone] documented [facility] History of Present illness Narrative* Kiran [...] Gifford MD documented [facility]-2023 Miscellaneous Notes* Telephone Encounter - Cherise [...] asking for a phone call back at [phone]. Review and advise. documented in this encounterC[facility]-2023 NoteHNO ID: [id number] Author: Kiran Gifford MD Service: ? Author [...] all of its relevant components. Kiran Gifford, [facility]10-18-2023 History of Present illness Narrative* Kiran [...] Gifford MD documented in [facility] encounterC[facility] Miscellaneous Notes* Telephone Encounter - Abbi Cole - 12/27/2022 10:59 AM EDT Ptient called wanting to let you know she is having carpel tunnel surgery on 01/07 and didn't know if it would affect her eyes.Abbi Dahl documented in this encounterC[facility]09-27-2023 NoteHNO ID: [id number] Author: Kiran Gifford MD Service: ? Author [...] all of its relevant components. Kiran Gifford, [facility]09-20-2023 NoteHNO ID: [id number] Author: Kiran Gifford MD Service: ? Author [...] Kiran Gifford MD December 04, 2022 9:09 [facility]09-08-2023 Miscellaneous Notes* Telephone Encounter - Charlotte Valencia OA - 11/22/2022 3:45 PM EDT Spoke with Randee brar at the [facility] regarding this patient's referral to Dr. Gifford. She stated that the patient is scheduled to see one of their providers on Friday11/25/2022 for a follow up. Patient is scheduled to then follow up with Dr. Gifford for a consult on 12/04/2022. This patient has also been added to the wait list for a cancellation. Please advise MARRY Nelson documented in this encounterC[facility]* Diagnosis Corneal edema, secondary, right- Primary Corneal scar, right eye Corneal opacity, unspecified Pseudophakia Lens replaced by other means Corneal edema, secondary, right [facility] Diagnosis Corneal edema, secondary, right- Primary Corneal scar, right eye Corneal opacity, unspecified Pseudophakia Lens replaced by other means Corneal edema, secondary, right [facility]* Diagnosis Status post corneal transplant- Primary Cornea replaced by transplant [facility] this encounter [facility]* Diagnosis 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 [place] DATE CREATED AUTHOR AUTHOR'S ORGANIZ ATION 04/26/2023 [facility] Source Comments (unrecognize d section and content) In the event this informatio n is protected by the Federal Confidentiality of Alcohol and Drug Abuse Patient Records regulations: The Federal rules restrict any use of the information to criminally investigate or prosecute any alcohol or drug abuse patient.[facility] Hospital[facility] the event this information is protected by the Federal Confidentiality of Alcohol and Drug Abuse Patient Records regulations: The Federal rules restrict any use of the information to criminally investigate or prosecute any alcohol or drug abuse patient.[facility] HospitalIn the event this information is protected by the Federal Confidentiality of Alcohol and Drug Abuse Patient Records regulations: The Federal rules restrict any use of the information to criminally investigate or prosecute any alcohol or drug abuse patient.[facility] Hospital[facility] the event this information is protected by the Federal Confidentiality of Alcohol and Drug Abuse Patient Records regulations: The Federal rules restrict any use of the information to criminally investigate or prosecute any alcohol or drug abuse patient.[facility] HospitalIn the event this information is protected by the Federal Confidentiality of Alcohol and Drug Abuse Patient Records regulations: The Federal rules restrict any use of the information to criminally investigate or prosecute any alcohol or drug abuse patient.[facility] HospitalIn the event this information is protected by the Federal Confidentiality of Alcohol and Drug Abuse Patient Records regulations: The Federal rules restrict any use of the information to criminally investigate or prosecute any alcohol or drug abuse patient.[facility] Hospital[facility] the event this information is protected by the Federal Confidentiality of Alcohol and Drug Abuse Patient Records regulations: The Federal rules restrict any use of the information to criminally investigate or prosecute any alcohol or drug abuse patient.[facility] Hospital[facility] the event this information is protected by the Federal Confidentiality of Alcohol and Drug Abuse Patient Records regulations: The Federal rules restrict any use of the information to criminally investigate or prosecute any alcohol or drug abuse patient.[facility] Reason for Visit (unrecogniz ed section and content) Reason Comments Corneal Edema Follow Up Reason Comments Patient Question Reason Comments Post-op (Ophthalmology) Right Eye Reason Comments New Patient Care Teams (unrecognized sec tion and content) Antisqueak Chalker Relationship Specialty Start Date End Date Madan Velásquez MD [address] [place] [address] PCP - General Internal Medicine 07/04/20 Antisqueak Chalker Relationship Specialty Start Date End Date Madan Velásquez MD [address] [place] [address] PCP - General Internal Medicine 07/04/20 Antisqueak Chalker Relationship Specialty Start Date End Date Madan Velásquez MD [address] [place] [address] PCP - General Internal Medicine 07/04/20 Antisqueak Chalker Relationship Specialty Start Date End Date Madan Velásquez MD [address] [place] [address] PCP - General Internal Medicine 07/04/20 Antisqueak Chalker Relationship Specialty Start Date End Date Madan Velásquez MD [address] [place] [address] PCP - General Internal Medicine 07/04/20 Antisqueak Chalker Relationship Specialty Start Date End Date Madan Velásquez MD [address] [place] [phone] PCP - General Internal Medicine 07/04/20 FOR [...] BE BASED ON THE PRIMARY CLINICAL RECORDS. [employer] [facility]. provides no warranty or guarantee of the accuracy or completeness of information in this document.
--- NOTE | 2023-05-02 14:17 | STRESSREP_ITS ---
Stress Test Report Date: 05/02/2023 Procedure: Pharmacologic stress nuclear imaging study Indications: Dyspnea Consent: Per the patient Procedure: The patient underwent pharmacologic (Regadenoson) evaluation with a peak heart rate of 120 beats per minute (78%predicted maximal heart rate) and a peak blood pressure of 132/92 mmHg. The baseline ECG demonstrated normal sinus rhythm. EKG during lexiscan infusion revealed no significant ischemic changes. EKG post infusion revealed no significant ischemic changes [There were no cardiac dysrhythmias pretest, during pharmacologic infusion, or recovery]. [There was no complaint of chest discomfort during pharmacologic infusion or recovery]. The examination was discontinued secondary to completion of protocol. Impression: 1. Lexiscan stress test test is negative for Lexiscan infusion induced EKG changes of ischemia. 2. Lexiscan stress test test is negative for Lexiscan infusion induced chest pain. 3. Results of the nuclear portion of the test is as below Myocardial perfusion imaging study: Technique: The patient was injected with 15 millicuries of technetium 99m Cardiolite and subsequently rest SPECT Cardiolite nuclear imaging was obtained in the horizontal long, vertical long, and short axis views. The patient underwent pharmacologic [Regadenoson 0.4mg] evaluation. Please see above for details. The patient was injected with 44.6 millicuries of technetium 99m Cardiolite and subsequently stress SPECT Cardiolite nuclear imaging was obtained in the horizontal long, vertical long, and short axis views. A gated Cardiolite study at peak stress was obtained. Interpretation: Rest and stress SPECT Cardiolite nuclear imaging status post realignment, normalization, and attenuation correction demonstrate overall no evidence of significant ischemia or infarction. Gated images reveal no significant regional wall motion abnormalities. The reported LVEF is greater than 70%. Impression: 1. There is no evidence of significant ischemia or infarction. 2. Estimated ejection fraction is greater than 70%. This note was generated with [employer] software. It may contain incorrect words, spelling, and punctuation that were not noted in checking the note before signing.
== END | disposition home or self-care (01) ==
LOC: CVS 06:34
PROVIDERS: PCP Internal Medicine; Referring Provider Internal Medicine Cardiovascular Disease; Visit Provider Internal Medicine Cardiovascular Disease
DX: R06.02 Shortness of breath (principal); E78.2 Mixed hyperlipidemia
CPT/HCPCS: 78452; 93017; A9500; A4216; J2785

== ENCOUNTER → 2023-05-08 | Outpatient (CLI) | payer MEDICARE, SELFPAY ==
[2023-05-08 17:04] LABS: Vitamin B12 272 pg/mL (211-911)
[2023-05-08 17:11] LABS: ALB/GLOB Ratio 0.8 RATIO (0.9-2.4); AST(SGOT) 23 U/L (15-37); Alanine Aminotransfer ALT/SGPT 19 U/L (13-56); Albumin, Serum 3.3 g/dL (3.2-5.0); Alkaline Phosphatase 79 U/L (45-117); Anion Gap 5 (5-15); BUN 27 mg/dL (7-18); Calcium,Total 10.4 mg/dL (8.5-10.1); Chloride 106 mmol/L (98-107); Creatinine, Serum 1.23 mg/dL (0.55-1.02); EST Glomerular Filtration Rate 46 mL/min (>60); Est Glom Filt Rate - Afr Amer 56 mL/min (>60); Ferritin 745 ng/mL (8-252); Globulin 4.1 g/dL (2.2-4.2); Glucose 109 mg/dL (74-106); Iron 91 ug/dL (50-170); Iron Binding Capacity,Total 391 ug/dL (250-450); Potassium 3.7 mmol/L (3.5-5.1); Protein, Total 7.4 g/dL (6.4-8.2); Sodium Level 138 mmol/L (136-145); T4 Total, Thyroxin 8.7 ug/dL (4.8-13.9); Thyroid Stim Hormone (TSH) 1.28 uIU/mL (0.358-3.74)
[2023-05-10 04:07] LABS: DHEA Sulfate 74.5 ug/dL (20.4-186.6)
== END | disposition home or self-care (01) ==
LOC: BIMLAB 15:19
PROVIDERS: PCP Internal Medicine; Visit Provider Nurse Practitioner
DX: E27.9 Disorder of adrenal gland, unspecified (principal); R00.1 Bradycardia, unspecified; E78.2 Mixed hyperlipidemia; L29.9 Pruritus, unspecified
CPT/HCPCS: 36415; 80053; 82607; 82627; 82728; 83540; 83550; 84436; 84443; 82626

== ENCOUNTER → 2023-05-09 | Outpatient (CLI) | payer MEDICARE, SELFPAY ==
--- NOTE | 2023-05-09 17:27 | CT_ITS ---
STUDY: CT ABDOMEN WITH AND WITHOUT CONTRAST REASON FOR EXAM: Female, 68 years old. adrenal protocol, right 3 cm adrenal mass RADIATION DOSAGE (If Supplied By Facility): CTDIvol = ( 35.78 ) mGy, DLP = ( 2991.22 ) mGycm TECHNIQUE: Transaxial images were obtained pre and post I.V. administration of IV 100mL Isovue-370, and without oral contrast. Sagittal and coronal images were reconstructed. Individualized dose optimization techniques were used for this CT. COMPARISON: None. FINDINGS: There is a right middle lobe ossified granuloma measuring 9.7 mm. There is right lower lobe subpleural atelectasis versus scarring with residual infiltrate not entirely excluded. There is trace right-sided pleural effusion. The left lung bases clear. The visualized portions of the heart are within normal limits. There is slight decreased attenuation of the liver consistent with mild steatosis. Nonvisualization of gallbladder consistent with known history of prior cholecystectomy. Normal spleen. Normal pancreas. There is a right adrenal nodule measuring 2.4 x 2.1 cm with Hounsfield units and enhancement compatible with adenoma. Normal left adrenal gland. Normal right kidney. Normal left kidney. Normal visualized stomach. Normal small intestine. Scattered diverticulosis with no signs of diverticulitis in the visualized portion. There is non-visualization of the appendix. There is mild atherosclerotic calcification of the abdominal aorta, without a demonstrated aneurysm. Normal inferior vena cava. Normal retroperitoneum. Normal abdominal wall. There are mild degenerative changes of the visualized lumbar spine. 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 Chronic changes at the right lung base with residual infiltrate and trace effusion. Status post cholecystectomy, remainder of abdominal viscera are unremarkable. Electronically Signed: Mariah Borges MD at 22:27 EST ,
--- OUTSIDE RECORDS SUMMARY | 2023-05-09 19:12 | XMS RPT_ITS | CCD ---
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 Unavailable Unavailable Santos, Lucy L. Unavailable Unavailable Santos, Lucy L. Unavailable Unavailable Santos, Lucy L. Unavailable Unavailable Santos, Lucy L. Unavailable Unavailable Santos, Lucy L. Unavailable Unavailable Santos, Lucy L. Unavailable Unavailable Santos, Lucy LLatia Unavailable Unavailable Madan Velásquez MD Primary Care Provider [phone] OLEGHE, EFEWONGBE B Primary Care Unavailable OLEGHE, [...] Translations: [SULFA (SULFONAMIDE ANTIBIOTICS)] Drug Intolerance 8 [facility] (8 sources) amLODIPine; Translations: [AMLODIPINE] Drug Allergy 3 Swelling [facility] (8 sources) Hydroxychloroquin e; Translations: [HYDROXYCHLOROQUI NE] Drug Allergy 3 Hives [facility] Medications Current Medications Medication Drug Class(es) Dates [...] 164.2 cm Aric Carrillo MD Work Phone: [facility] 04-25-2023 10:33-0500 Body temperature 97.11 [degF] Aric Carrillo MD Work Phone: [facility] 04-25-2023 10:33-0500 Body weight 122.24 kg Aric Carrillo MD Work Phone: [facility] 04-25-2023 10:33-0500 Diastolic blood pressure 70 mm[Hg] Aric Carrillo MD Work Phone: [facility] 04-25-2023 10:33-0500 Heart rate 60 /min Aric Carrillo MD Work Phone: [facility] 04-25-2023 10:33-0500 SaO2% (BldA) [Mass fraction] 96 % Aric Carrillo MD Work Phone: [facility] 04-25-2023 10:33-0500 Systolic blood pressure 105 mm[Hg] Aric Carrillo MD Work Phone: [facility] Encounters Encounter Date Encounter Type Care Provider Facility Start: 04-25-2023 End: 04-25-2023 ambulatory FREDDIE RANDALL Facility:[facility] Start: 04-25-2023 End: 04-25-2023 ambulatory Aric Carrillo [...] Start: 10-09-2027 Urine microalbumin profile [facility] Start: 04-25-2024 BP Controlled (<130/80) BP Controlle d (<130/80) [facility] Start: 03-17-2023 Advance Directive Discussion Advance Directive Discussion [facility] Start: 03-17-2023 [facility] Start: 11-15-2022 Covid-19 Vaccine ( season) Covid-19 Vaccine ( season) [facility] Start: 11-15-2022 Influenza vaccination C [facility] Start: 10-08-2022 Lipid 1996 panel - S michael or Plasma Lipid Screening [facility] Start: 10-08-2022 Lipid panel Lipid Screening [facility] Start: 10-08-2022 LIPID SCREEN LIPID SCREEN [facility] Start: 03-17-2022 ADVANCE DIRECTIVE DISCUSSION ADVANCE DIRECTIVE DISCUSSION [facility] Start: 03-17-2022 [facility]ION [facility] Start: 01-31-2022 Pneumococcal Vaccine : 65+ (2 - PPSV23 or PCV20) Pneumococcal Vaccine: 65+ (2 - PPSV23 or PCV20) [facility] Start: 03-31-2021 DIABETES SCREEN DIABETES SCREEN [facility] Start: 03-31-2021 Diabetes Screening Diabetes Screenin g [facility] Start: 03-28-2021 Pneumococcal Vaccine : 65+ (2 of 2 - PPSV23 or PCV20) Pneumococcal Vaccine: 65+ (2 of 2 - PPSV23 or PCV20) [facility] Start: 05-16-2020 Colonoscopy Colonoscopy [facility] Start: 05-16-2020 Colorectal Cancer Screening Colorectal Cancer Screening [facility] Start: 05-16-2020 Screening for malign ant neoplasm of colon [facility] Start: 01-29-2020 BONE DENSITY BONE DENSITY [facility] Start: 01-29-2020 Bone Density Screening Bone Density Screening [facility] Start: 01-29-2020 Pneumococcal Vaccine : 65+ (1 - PCV) Pneumococcal Vaccine: 65+ (1 - PCV) [facility] Start: 01-29-2020 PNEUMOCOCCAL: 65+ (1 - PCV) PNEUMOCOCCAL: 65+ (1 - PCV) [facility] Start: 01-29-2020 Screening for osteoporosis Bone Dens ity Screening [facility] Start: 10-06-2019 Annual PCP Team Fundraising Specialist [place] Disease Visit Annual PCP Team Chronic Disease Visit [facility] Start: 10-08-2018 BP Controlled (<130/80) BP Controlle d (<130/80) [facility] Start: 06-26-2018 Mammography [facility] Start: 06-26-2018 Screening for malign ant neoplasm of breast Mammogram Screening [facility] Start: 2015 RSV Vaccine (1 - 1-d ose 60+ series) RSV Vaccine (1 - 1-dose 60+ series) [facility] Start: 2005 SHINGRIX VACCINE (1 of 2) SHINGRIX V ACCINE (1 of 2) [facility] Start: 01-29-2000 COLOGUARD (FIT-DNA) COLOGUARD (FIT-D NA) [facility] Start: 01-29-2000 Colonoscopy COLONOSCOPY [facility] Start: 01-29-2000 COLORECTAL CANCER SCREENING COLORECTAL CANCER SCREENING [facility] Start: 01-29-[address] COLONOGRAPHY [facility] Start: 01-29-2000 FECAL OCCULT BLOOD FECAL OCCULT BLOO D [facility] Start: 01-29-2000 Screening for malign ant neoplasm of colon [facility] Start: 01-29-2000 SIGMOIDOSCOPY SIGMOIDOSCOPY [facility] Start: 1974 Shingrix Vaccine (1 of 2) Shingrix V accine (1 of 2) [facility] Start: 1955 COVID-19 VACCINE (#1) COVID-19 VACCI NE (#1) [facility] Immunizations Immunization Date Immunization Notes Care Provider Fa bethany 04-07-2018 influenza virus vacc ine, unspecified formulation Kiran Gifford MD Work Phone: [facility] Payers Date Payer Category Payer Medicare [employer] MEDICARE [employer] MEDICARE PPO [id number] 2020-Present [phone] [id number] [place] [address] PPO [id number] 2020 Medicare [id number] 2015 Unknown [id number] Social History Date Type Detail Facility Start: 06-06-2017 End: 12-04-2022 Tobacco smoking status NHIS Never smoked tobacco [facility] Start: 06-06-2017 End: 12-04-2022 Tobacco use and exposure Smokeless tobacco non-user [facility] Start: 10-05-2018 End: 04-25-2023 Alcohol intake Current non-drinker of alcohol (finding) [facility] Start: 10-05-2018 End: 01-29-2023 History of Social function [facility] Start: 10-05-2018 End: 01-29-2023 Tobacco use panel [facility] Adult Depression Scr eening Assessment 0 [facility] Start: 1955 Sex Assigned At Not on file C [facility] Medical Equipment Procedure Code Equipment Code Equipment Origin al Text Equipment Identifier Dates Cornea Tissue Pre-Loaded [id number] - [id number] Start: 02-28-2023 Gas Ispan [employer] Intraocular Vision System [id number] - [id number] Start: 02-28-2023 Clinical Notes 11-22-2022 to 04-25-2023 Aric Carrillo MD - 04/25/2023 10:39 AM ESTPatient Kiran Milton MD - 03/05/2023 11:11 AM ESTPatient KarineKiran MD - 03/01/2023 1:31 PM EST Note Date & Type Note Facility 04-25-2023 Note HNO ID: [id number] Author: ARIC CARRILLO MD Service: ? Author [...] of 45 minute (more content not included)... [facility] 04-25-2023 History of Presen t illness [...] which included preparing to see the patient, [id number] patient care, completing clinical documentation, obtaining and/or reviewing separately obtained history, counseling and educating the patient/family/caregiver, communicating with other HCPs (not separately reported), independently interpreting results (not separately reported), and communicating results to the patient/family/caregiver. ' Electronically Signed: Aric Carrillo MD April 25, 2023 10:39 AM documented in this encounter [facility] 04-02-2023 Note HNO ID: [id number] Author: KIRAN GIFFORD MD Service: ? Author [...] of its relevant components. Kiran Gifford MD [facility] 03-12-2023 Note HNO ID: [id number] Author: Kiran Gifford MD Service: ? Author [...] of its relevant components. Kiran Gifford MD [facility] 03-05-2023 Note HNO ID: [id number] Author: Kiran Gifford MD Service: ? Author [...] of its relevant components. Kiran Gifford MD [facility] 03-05-2023 Instructions Kiran Gifford MD - 03/05/2023 11:12 AM EST -prednisolone 4x daily right eye -vigamox four times a day right eye -lie flat on back every two hours -precautions documented in this encounter [facility] 03-05-2023 History of Presen t illness Narrative [...] MD documented in this encounter [facility] 03-01-2023 Note HNO ID: [id number] Author: Kiran Giffodr MD Service: ? Author Type: Physician Type: [...] of its relevant components. Kiran Gifford MD [facility] 03-01-2023 Instructions Kiran Gifford MD - 03/01/2023 1:32 PM EST Images from the original note were not included. documented in this encounter [facility] 03-01-2023 History of Presen t illness Narrative [...] MD documented in this encounter [facility] documented as of this encounter (statuses as of 03/01/2023) [facility]12-15-2023 History of Past illness Narrative* Problem Noted Date Diagnosed Date Resolved Date Corneal edema, secondary, right 02/28/2023 02/28/2023 documented as of this encounter (statuses as of 03/06/2023) [facility]12-15-2023 History of Past illness Narrative* Problem Noted Date Diagnosed Date Resolved Date Corneal edema, secondary, right 02/28/2023 02/28/2023 documented as of this encounter (statuses as of 04/25/2023) [facility]11-08-2023 NoteHNO ID: [id number] Author: Kiran Gifford MD Service: ? Author [...] its relevant components. Kiran Gifford, [facility]11-08-2023 Instructions* Patient Instructions* Kiran Gifford MD - 01/22/2023 9:36 AM EST -Tre White (surgical scheduling): [phone] [facility] History of Present illness Narrative* Kiran Gifford [...] Gifford MD [facility] Miscellaneous Notes* Telephone Encounter - Cherise West [...] which she is under the care of [facility] to control her hypertension. Patient [...] asking for a phone call back at [phone]. Review and advise. [facility]-2023 NoteHNO ID: [id number] Author: Kiran Gifford MD Service: ? Author [...] its relevant components. Kiran Gifford, [facility]10-18-2023 History of Present illness Narrative* Kiran Gifford [...] Gifford MD [facility] Miscellaneous Notes* Telephone Encounter - Abbi Cole - 12/27/2022 10:59 AM EDT Ptient called wanting to let you know she is having carpel tunnel surgery on 01/07 and didn't know if it would affect her eyes.Abbi Dahl documented [facility]09-27-2023 NoteHNO ID: [id number] Author: Kiran Gifford MD Service: ? Author [...] its relevant components. Kiran Gifford, [facility]09-20-2023 NoteHNO ID: [id number] Author: Kiran Gifford MD Service: ? Author [...] Kiran Gifford MD December 04, 2022 9:09 [facility]09-08-2023 Miscellaneous Notes* Telephone Encounter - Charlotte Valencia OA - 11/22/2022 3:45 PM EDT Spoke with Randee brar at the [facility] regarding this patient's referral to Dr. [...] MARRY Nelson documented in [facility]* Diagnosis Corneal edema, secondary, right- Primary Corneal scar, right eye Corneal opacity, unspecified Pseudophakia Lens replaced by other means Corneal edema, secondary, right documented [facility] this [facility] [place] [facility] Diagnosis Corneal edema, secondary, right- Primary Corneal scar, right eye Corneal opacity, unspecified Pseudophakia Lens replaced by other means Corneal edema, secondary, right documented [facility] this encounter [facility]* Diagnosis Status post corneal transplant- Primary Cornea replaced by transplant documented [facility] this encounter [facility] [place] [facility]* Diagnosis 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 documented in this encounter [facility] Summary Purpose Family History No Family History Records FoundNo Family History Records FoundNo Family History Records Found Advance Directives No Advanced Directives Records FoundNo Advanced Directives Records FoundNo Advanced Directives Records Found Additional Source Comments INFORMATION SOURCE (unrecogn ized section and content) DATE CREATED AUTHOR AUTHOR'S ORGANIZ ATION 09/08/2017 [facility] [place] DATE CREATED AUTHOR AUTHOR'S ORGANIZ ATION 04/26/2023 [facility] Source Comments (unrecognize d section and content) In the event this informatio n is protected by the Federal Confidentiality of Alcohol and Drug Abuse Patient Records regulations: The Federal rules restrict any use of the information to criminally investigate or prosecute any alcohol or drug abuse patient.[facility] the event this information is protected by the Federal Confidentiality of Alcohol and Drug Abuse Patient Records regulations: The Federal rules restrict any use of the information to criminally investigate or prosecute any alcohol or drug abuse patient.[facility] the event this information is protected by the Federal Confidentiality of Alcohol and Drug Abuse Patient Records regulations: The Federal rules restrict any use of the information to criminally investigate or prosecute any alcohol or drug abuse patient.[facility] the event this information is protected by the Federal Confidentiality of Alcohol and Drug Abuse Patient Records regulations: The Federal rules restrict any use of the information to criminally investigate or prosecute any alcohol or drug abuse patient.[facility] the event this information is protected by the Federal Confidentiality of Alcohol and Drug Abuse Patient Records regulations: The Federal rules restrict any use of the information to criminally investigate or prosecute any alcohol or drug abuse patient.[facility] the event this information is protected by the Federal Confidentiality of Alcohol and Drug Abuse Patient Records regulations: The Federal rules restrict any use of the information to criminally investigate or prosecute any alcohol or drug abuse patient.[facility] the event this information is protected by the Federal Confidentiality of Alcohol and Drug Abuse Patient Records regulations: The Federal rules restrict any use of the information to criminally investigate or prosecute any alcohol or drug abuse patient.[facility] the event this information is protected by the Federal Confidentiality of Alcohol and Drug Abuse Patient Records regulations: The Federal rules restrict any use of the information to criminally investigate or prosecute any alcohol or drug abuse patient.[facility] Reason for Visit (unrecogniz ed section and content) Reason Comments Corneal Edema Follow Up Reason Comments Patient Question Reason Comments Post-op (Ophthalmology) Right Eye Reason Comments New Patient Care Teams (unrecognized sec tion and content) [employer] Worker Relationship Specialty Start Date End Date Madan Velásquez MD [address] [place] [address] PCP - General Internal Medicine 07/04/20 [employer] Worker Relationship Specialty Start Date End Date Madan Velásquez MD [address] [place] [address] PCP - General Internal Medicine 07/04/20 [employer] Work[employer] Relationship Specialty Start Date End Date Madan Velásquez MD [address] [place] [address] PCP - General Internal Medicine 07/04/20 [employer] Worker Relationship Specialty Start Date End Date Madan Velásquez MD [address] [place] [address] PCP - General Internal Medicine 07/04/20 [employer] Worker Relationship Specialty Start Date End Date Madan Velásquez MD [address] [place] [address] PCP - General Internal Medicine 07/04/20 [employer] Worker Relationship Specialty Start Date End Date Mdaan Velásquez MD [address] [place] [phone] PCP - General Internal Medicine 07/04/20 FOR [...] BE BASED ON THE PRIMARY CLINICAL RECORDS. [employer] [facility]. provides no warranty or guarantee of the accuracy or completeness of information in this document.
== END | disposition home or self-care (01) ==
LOC: CT 17:24
PROVIDERS: PCP Internal Medicine; Referring Provider Nurse Practitioner; Visit Provider Nurse Practitioner
DX: E27.8 Other specified disorders of adrenal gland (principal)
CPT/HCPCS: 74170; Q9967

== ENCOUNTER → 2023-05-12 | Outpatient (CLI) | payer MEDICARE, SELFPAY ==
[2023-05-21 14:10] LABS: Cortisol, Free 24Ur 9 ug/24 hr (6-42); Cortisol, Urinary Free 6 ug/L (Undefined); Dopamine, 24Ur 257 ug/24 hr (0-510); Dopamine, UR 171 ug/L (Undefined); Epinephrine, 24Ur < 5 ug/24 hr (0-20); Epinephrine, Ur < 3 ug/L (Undefined); Norepinephrine, 24Ur 60 ug/24 hr (0-135); Norepinephrine, Ur 40 ug/L (Undefined)
== END | disposition home or self-care (01) ==
LOC: LABSPEC 09:25
PROVIDERS: PCP Internal Medicine; Visit Provider Nurse Practitioner
DX: E27.9 Disorder of adrenal gland, unspecified (principal)
CPT/HCPCS: 82384; 82530

== ENCOUNTER → 2023-05-16 | Outpatient (CLI) | payer MEDICARE, SELFPAY ==
--- OUTSIDE RECORDS SUMMARY | 2023-05-16 11:21 | XMS RPT_ITS | CCD ---
Author Name Unknown Address [address] [place] [address] Organization [facility] Care Team Providers Care Manager Produce Name Role Phone Santos, Lucy L. Unavailable [...] Translations: [SULFA (SULFONAMIDE ANTIBIOTICS)] Drug Intolerance 8 [facility] (8 sources) amLODIPine; Translations: [AMLODIPINE] Drug Allergy 3 Swelling [facility] (8 sources) Hydroxychloroquin e; Translations: [HYDROXYCHLOROQUI NE] Drug Allergy 3 Hives [facility] Medications Current Medications Medication Drug Class(es) [...] 164.2 cm Aric Carrillo MD Work Phone: [facility] 04-25-2023 10:33-0500 Body temperature 97.11 [degF] Aric Carrillo MD Work Phone: [facility] 04-25-2023 10:33-0500 Body weight 122.24 kg Aric Carrillo MD Work Phone: [facility] 04-25-2023 10:33-0500 Diastolic blood pressure 70 mm[Hg] Aric Carrillo MD Work Phone: [facility] 04-25-2023 10:33-0500 Heart rate 60 /min Aric Carrillo MD Work Phone: [facility] 04-25-2023 10:33-0500 SaO2% (BldA) [Mass fraction] 96 % Aric Carrillo MD Work Phone: [facility] 04-25-2023 10:33-0500 Systolic blood pressure 105 mm[Hg] Aric Carrillo MD Work Phone: [facility] Encounters Encounter Date Encounter Type Care Provider Facility Start: 04-25-2023 End: 04-25-2023 ambulatory FREDDIE RANDALL Facility:[facility] Start: 04-25-2023 End: 04-25-2023 ambulatory Aric [...] Detail Author Start: 10-09-2027 Urine microalbumin profile [facility] Start: 04-25-2024 BP Controlled (<130/80) BP Controlle d (<130/80) [facility] Start: 03-17-2023 Advance Directive Discussion Advance Directive Discussion [facility] Start: 03-17-2023 Depression Assessment Depression [facility] Start: 11-15-2022 Covid-19 Vaccine ( season) Covid-19 Vaccine ( season) [facility] Start: 11-15-2022 Influenza vaccination C [facility] Start: 10-08-2022 Lipid 1996 panel - S michael or Plasma Lipid Screening [facility] Start: 10-08-2022 Lipid panel Lipid Screening [facility] Start: 10-08-2022 LIPID SCREEN LIPID SCREEN [facility] Start: 03-17-2022 ADVANCE DIRECTIVE DISCUSSION ADVANCE DIRECTIVE DISCUSSION [facility] Start: 03-17-2022 DEPRESSION [facility]MENT [facility] Start: 01-31-2022 Pneumococcal Vaccine : 65+ (2 - PPSV23 or PCV20) Pneumococcal Vaccine: 65+ (2 - PPSV23 or PCV20) [facility] Start: 03-31-2021 DIABETES SCREEN DIABETES SCREEN [facility] Start: 03-31-2021 Diabetes Screening Diabetes Screenin g [facility] Start: 03-28-2021 Pneumococcal Vaccine : 65+ (2 of 2 - PPSV23 or PCV20) Pneumococcal Vaccine: 65+ (2 of 2 - PPSV23 or PCV20) [facility] Start: 05-16-2020 Colonoscopy Colonoscopy [facility] Start: 05-16-2020 Colorectal Cancer Screening Colorectal Cancer Screening [facility] Start: 05-16-2020 Screening for malign ant neoplasm of colon [facility] Start: 01-29-2020 BONE DENSITY BONE DENSITY [facility] Start: 01-29-2020 Bone Density Screening Bone Density Screening [facility] Start: 01-29-2020 Pneumococcal Vaccine : 65+ (1 - PCV) Pneumococcal Vaccine: 65+ (1 - PCV) [facility] Start: 01-29-2020 PNEUMOCOCCAL: 65+ (1 - PCV) PNEUMOCOCCAL: 65+ (1 - PCV) [facility] Start: 01-29-2020 Screening for osteoporosis Bone Dens ity Screening [facility] Start: 10-06-2019 Annual PCP Team [employer] Disease Visit Annual PCP Team Chronic Disease Visit [facility] Start: 10-08-2018 BP Controlled (<130/80) BP Controlle d (<130/80) [facility] Start: 06-26-2018 Mammography [facility] Start: 06-26-2018 Screening for malign ant neoplasm of breast Mammogram Screening [facility] Start: 2015 RSV Vaccine (1 - 1-d ose 60+ series) RSV Vaccine (1 - 1-dose 60+ series) [facility] Start: 2005 SHINGRIX VACCINE (1 of 2) SHINGRIX V ACCINE (1 of 2) [facility] Start: 01-29-2000 COLOGUARD (FIT-DNA) COLOGUARD (FIT-D NA) [facility] Start: 01-29-2000 Colonoscopy COLONOSCOPY [facility] Start: 01-29-2000 COLORECTAL CANCER SCREENING COLORECTAL CANCER SCREENING [facility] Start: 01-29-[address] COLONOGRAPHY [facility] Start: 01-29-2000 FECAL OCCULT BLOOD FECAL OCCULT BLOO D [facility] Start: 01-29-2000 Screening for malign ant neoplasm of colon [facility] Start: 01-29-2000 SIGMOIDOSCOPY SIGMOIDOSCOPY [facility] Start: 1974 Shingrix Vaccine (1 of 2) Shingrix V accine (1 of 2) [facility] Start: 1955 COVID-19 VACCINE (#1) COVID-19 VACCI NE (#1) [facility] Immunizations Immunization Date Immunization Notes Care Provider Fa bethany 04-07-2018 influenza virus vacc ine, unspecified formulation Kiran Gifford MD Work Phone: [facility] Payers Date Payer Category Payer Medicare [employer] MEDICARE [employer] MEDICARE PPO [id number] 2020-Present [phone] [id number] [place] [address] PPO [id number] 2020 Medicare [id number] 2015 Unknown [id number] Social History Date Type Detail Facility Start: 06-06-2017 End: 12-04-2022 Tobacco smoking status NHIS Never smoked tobacco [facility] Start: 06-06-2017 End: 12-04-2022 Tobacco use and exposure Smokeless tobacco non-user [facility] Start: 10-05-2018 End: 04-25-2023 Alcohol intake Current non-drinker of alcohol (finding) [facility] Start: 10-05-2018 End: 01-29-2023 History of Social function [facility] Start: 10-05-2018 End: 01-29-2023 Tobacco use panel [facility] Adult Depression Scr eening Assessment 0 [facility] Start: 1955 Sex Assigned At Not on file [facility] Medical Equipment Procedure Code Equipment Code Equipment Origin al Text Equipment Identifier Dates Cornea Tissue Pre-Loaded [id number] - [id number] Start: 02-28-2023 Gas Ispan Constellation Intraocular Vision System [id number] - [id number] Start: 02-28-2023 Clinical Notes 11-22-2022 to 04-25-2023 Aric Carrillo MD - 04/25/2023 10:39 AM ESTPatient Kiran Milton MD - 03/05/2023 11:11 AM ESTPatient KarineKiran MD - 03/01/2023 1:31 PM EST Note Date & Type Note Facility 04-25-2023 Note HNO ID: [id number] Author: ARIC CARRILLO MD Service: ? Author [...] of 45 minute (more content not included)... [facility] 04-25-2023 History of Presen t illness [...] which included preparing to see the patient, [id number] patient care, completing clinical documentation, obtaining and/or reviewing separately obtained history, counseling and educating the patient/family/caregiver, communicating with other HCPs (not separately reported), independently interpreting results (not separately reported), and communicating results to the patient/family/caregiver. ' Electronically Signed: Aric Carrillo MD April 25, 2023 10:39 AM documented in this encounter [facility] 04-02-2023 Note HNO ID: [id number] Author: KIRAN GIFFORD MD Service: ? Author [...] of its relevant components. Kiran Gifford MD [facility] 03-12-2023 Note HNO ID: [id number] Author: Kiran Gifford MD Service: ? Author [...] of its relevant components. Kiran Gifford MD [facility] 03-05-2023 Note HNO ID: [id number] Author: Kiran Gifford MD Service: ? Author [...] of its relevant components. Kiran Gifford MD [facility] 03-05-2023 Instructions Kiran Gifford MD - 03/05/2023 11:12 AM EST -prednisolone 4x daily right eye -vigamox four times a day right eye -lie flat on back every two hours -precautions documented in this encounter [facility] 03-05-2023 History of Presen t illness [...] Kiran Gifford MD documented in this encounter [facility] 03-01-2023 Note HNO ID: [id number] Author: Kiran Gifford MD Service: ? Author [...] of its relevant components. Kiran Gifford MD [facility] 03-01-2023 Instructions Kiran Gifford MD - 03/01/2023 1:32 PM EST Images from the original note were not included. documented in this encounter [facility] 03-01-2023 History of Presen t illness [...] Kiran Gifford MD documented in this encounter [facility] documented as of this encounter (statuses as of 03/01/2023) [facility]12-15-2023 History of Past illness Narrative* Problem Noted Date Diagnosed Date Resolved Date Corneal edema, secondary, right 02/28/2023 02/28/2023 documented as of this encounter (statuses as of 03/06/2023) [facility]12-15-2023 History of Past illness Narrative* Problem Noted Date Diagnosed Date Resolved Date Corneal edema, secondary, right 02/28/2023 02/28/2023 documented as of this encounter (statuses as of 04/25/2023) [facility]11-08-2023 NoteHNO ID: [id number] Author: Kiran Gifford MD Service: ? Author [...] all of its relevant components. Kiran Gifford, [facility]11-08-2023 Instructions* Patient Instructions* Kiran Gifford MD - 01/22/2023 9:36 AM EST -Tre White (surgical scheduling): [phone] documented in [facility]23 History of Present illness Narrative* Kiran [...] components. Kiran Gifford MD documented [facility]11-06-2023 Miscellaneous Notes* Telephone Encounter - Cherise [...] asking for a phone call back at [phone]. Review and advise. documented in this encounterW[facility]10-18-2023 NoteHNO ID: [id number] Author: Kiran Gifford MD Service: ? Author [...] all of its relevant components. Kiran Gifford, [facility]10-18-2023 History of Present illness Narrative* Kiran [...] components. Kiran Gifford MD documented in this encounterW[facility]10-13-2023 Miscellaneous Notes* Telephone Encounter - Abbi Cole - 12/27/2022 10:59 AM EDT Ptient called wanting to let you know she is having carpel tunnel surgery on 01/07 and didn't know if it would affect her eyes.Abbi Dahl documented in this encounterW[facility]09-27-2023 NoteHNO ID: [id number] Author: Kiran Gifford MD Service: ? Author [...] all of its relevant components. Kiran Gifford, [facility]09-20-2023 NoteHNO ID: [id number] Author: Kiran Gifford MD Service: ? Author [...] Gifford MD December 04, 2022 9:09 [facility]09-08-2023 Miscellaneous Notes* Telephone Encounter - Charlotte Valencia OA - 11/22/2022 3:45 PM EDT Spoke with Randee brar at the [facility] regarding this patient's referral to Dr. Gifford. She stated that the patient is scheduled to see one of their providers on Friday11/25/2022 for a follow up. Patient is scheduled to then follow up with Dr. Gifford for a consult on 12/04/2022. This patient has also been added to the wait list for a cancellation. Please advise MARRY Nelson documented in this encounterW[facility] HospitalEvaluation note* Diagnosis Corneal edema, secondary, right- Primary Corneal scar, right eye Corneal opacity, unspecified Pseudophakia Lens replaced by other means Corneal edema, secondary, right documented [facility] Diagnosis Corneal edema, secondary, right- Primary Corneal scar, right eye Corneal opacity, unspecified Pseudophakia Lens replaced by other means Corneal edema, secondary, right [facility]* Diagnosis Status post corneal transplant- Primary Cornea replaced by transplant documented in this encounter [facility]* Diagnosis 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 documented in this encounter [facility] Summary Purpose Family History No Family History Records FoundNo Family History Records FoundNo Family History Records Found Advance Directives No Advanced Directives Records FoundNo Advanced Directives Records FoundNo Advanced Directives Records Found Additional Source Comments INFORMATION SOURCE (unrecogn ized section and content) DATE CREATED AUTHOR AUTHOR'S ORGANIZ ATION 09/08/2017 [facility] [place] DATE CREATED AUTHOR AUTHOR'S ORGANIZ ATION 04/26/2023 [facility] Source Comments (unrecognize d section and content) In the event this informatio n is protected by the Federal Confidentiality of Alcohol and Drug Abuse Patient Records regulations: The Federal rules restrict any use of the information to criminally investigate or prosecute any alcohol or drug abuse patient.[facility] HospitalIn the event this information is protected by the Federal Confidentiality of Alcohol and Drug Abuse Patient Records regulations: The Federal rules restrict any use of the information to criminally investigate or prosecute any alcohol or drug abuse patient.[facility] HospitalIn the event this information is protected by the Federal Confidentiality of Alcohol and Drug Abuse Patient Records regulations: The Federal rules restrict any use of the information to criminally investigate or prosecute any alcohol or drug abuse patient.[facility] HospitalIn the event this information is protected by the Federal Confidentiality of Alcohol and Drug Abuse Patient Records regulations: The Federal rules restrict any use of the information to criminally investigate or prosecute any alcohol or drug abuse patient.[facility] HospitalIn the event this information is protected by the Federal Confidentiality of Alcohol and Drug Abuse Patient Records regulations: The Federal rules restrict any use of the information to criminally investigate or prosecute any alcohol or drug abuse patient.[facility] HospitalIn the event this information is protected by the Federal Confidentiality of Alcohol and Drug Abuse Patient Records regulations: The Federal rules restrict any use of the information to criminally investigate or prosecute any alcohol or drug abuse patient.[facility] HospitalIn the event this information is protected by the Federal Confidentiality of Alcohol and Drug Abuse Patient Records regulations: The Federal rules restrict any use of the information to criminally investigate or prosecute any alcohol or drug abuse patient.[facility] HospitalIn the event this information is protected by the Federal Confidentiality of Alcohol and Drug Abuse Patient Records regulations: The Federal rules restrict any use of the information to criminally investigate or prosecute any alcohol or drug abuse patient.[facility] Reason for Visit (unrecogniz ed section and content) Reason Comments Corneal Edema Follow Up Reason Comments Patient Question Reason Comments Post-op (Ophthalmology) Right Eye Reason Comments New Patient Care Teams (unrecognized sec tion and content) Manager Produce Relationship Specialty Start Date End Date Madan Velásquez MD [address] [place] [address] PCP - General Internal Medicine 07/04/20 Manager Produce Relationship Specialty Start Date End Date Madan Velásquez MD [address] [place] [address] PCP - General Internal Medicine 07/04/20 Manager Produce Relationship Specialty Start Date End Date Madan Velásquez MD [address] [place] [address] PCP - General Internal Medicine 07/04/20 Manager Produce Relationship Specialty Start Date End Date Madan Velásquez MD [address] [place] [address] PCP - General Internal Medicine 07/04/20 Manager Produce Relationship Specialty Start Date End Date Madan Velásquez MD [address] [place] [address] PCP - General Internal Medicine 07/04/20 Manager Produce Relationship Specialty Start Date End Date Madan Velásquez MD [address] [place] [id number] PCP - General Internal Medicine 07/04/20 FOR [...] BE BASED ON THE PRIMARY CLINICAL RECORDS. [employer] [facility]. provides no warranty or guarantee of the accuracy or completeness of information in this document.
[2023-05-16 12:24] LABS: Absolute Lymphocyte Count 2.12 X10^3/uL (0.83-4.51); Absolute Neutrophil Count 2.3 X10^3/uL (2.0-7.7); Basophil# 0.06 X10^3/uL; Basophil% 1.1 % (0-1); Eosinophil# 0.22 X10^3/uL; Hematocrit 41.5 % (37-47); Hemoglobin 12.6 g/dL (12.0-15.0); Lymphocyte # 2.12 X10^3/ul (0.83-4.51); Lymphocyte % 38.7 % (19-41); Mean Corp Hgb Conc 30.4 g/dL (32-36); Mean Corpuscular Hgb 27.7 pg (27.0-32.0); Mean Corpuscular Volume 91.2 fL (81-99); Mean Platelet Vol. 9.5 fl (6.2-12.0); Monocyte# 0.79 X10^3/uL; Monocyte% 14.4 % (0-10); NRBC Flagged by Analyzer 0 % (0-5); Neutrophil # 2.27 X10^3/uL (2.7-7.7); Neutrophil % 41.4 % (47-70); Platelet Count 246 K/mm3 (150-450); RBC Distribution Width CV 18.3 % (11.6-14.6); RBC Distribution Width SD 60.8 fl (35.1-43.9); Red Blood Count 4.55 M/mm3 (4.2-5.4); White Blood Count 5.5 K/mm3 (4.4-11.0)
[2023-05-16 12:40] LABS: ALB/GLOB Ratio 0.8 RATIO (0.9-2.4); AST(SGOT) 22 U/L (15-37); Alanine Aminotransfer ALT/SGPT 19 U/L (13-56); Albumin, Serum 3.4 g/dL (3.2-5.0); Alkaline Phosphatase 73 U/L (45-117); Anion Gap 5 (5-15); BUN 18 mg/dL (7-18); BUN/Creat Ratio 16.1 RATIO (10-20); Calcium,Total 10.8 mg/dL (8.5-10.1); Chloride 109 mmol/L (98-107); Creatinine, Serum 1.12 mg/dL (0.55-1.02); EST Glomerular Filtration Rate 51 mL/min (>60); Est Glom Filt Rate - Afr Amer 62 mL/min (>60); Globulin 4.1 g/dL (2.2-4.2); Glucose 103 mg/dL (74-106); Potassium 3.9 mmol/L (3.5-5.1); Protein, Total 7.5 g/dL (6.4-8.2); Sodium Level 140 mmol/L (136-145)
== END | disposition home or self-care (01) ==
LOC: MTLAB 10:53
PROVIDERS: PCP Internal Medicine; Referring Provider Internal Medicine Rheumatology; Visit Provider Internal Medicine Rheumatology
DX: M05.70 Rheumatoid arthritis with rheumatoid factor of unspecified site without organ or systems involvement (principal); R76.8 Other specified abnormal immunological findings in serum; Z79.899 Other long term (current) drug therapy
CPT/HCPCS: 36415; 80053; 85025

== ENCOUNTER → 2023-08-12 | Outpatient (CLI) | payer MEDICARE, SELFPAY ==
[2023-08-12 10:20] LABS: Absolute Lymphocyte Count 2.28 X10^3/uL (0.83-4.51); Absolute Neutrophil Count 2.4 X10^3/uL (2.0-7.7); Basophil# 0.07 X10^3/uL; Basophil% 1.3 % (0-1); Eosinophil# 0.11 X10^3/uL; Hemoglobin 13.5 g/dL (12.0-15.0); Lymphocyte # 2.28 X10^3/ul (0.83-4.51); Lymphocyte % 42.1 % (19-41); Mean Corp Hgb Conc 31.4 g/dL (32-36); Mean Corpuscular Hgb 28.4 pg (27.0-32.0); Mean Corpuscular Volume 90.5 fL (81-99); Mean Platelet Vol. 9.5 fl (6.2-12.0); Monocyte# 0.58 X10^3/uL; Monocyte% 10.7 % (0-10); NRBC Flagged by Analyzer 0 % (0-5); Neutrophil # 2.36 X10^3/uL (2.7-7.7); Neutrophil % 43.7 % (47-70); Platelet Count 231 K/mm3 (150-450); RBC Distribution Width CV 14.6 % (11.6-14.6); RBC Distribution Width SD 48.2 fl (35.1-43.9); Red Blood Count 4.75 M/mm3 (4.2-5.4); White Blood Count 5.4 K/mm3 (4.4-11.0)
[2023-08-12 11:04] LABS: ALB/GLOB Ratio 0.8 RATIO (0.9-2.4); AST(SGOT) 21 U/L (15-37); Alanine Aminotransfer ALT/SGPT 20 U/L (13-56); Albumin, Serum 3.2 g/dL (3.2-5.0); Alkaline Phosphatase 69 U/L (45-117); Anion Gap 9 (5-15); BUN 24 mg/dL (7-18); Calcium,Total 10.2 mg/dL (8.5-10.1); Chloride 108 mmol/L (98-107); Creatinine, Serum 1.33 mg/dL (0.55-1.02); EST Glomerular Filtration Rate 42 mL/min (>60); Est Glom Filt Rate - Afr Amer 51 mL/min (>60); Globulin 3.9 g/dL (2.2-4.2); Glucose 149 mg/dL (74-106); Protein, Total 7.1 g/dL (6.4-8.2); Sodium Level 140 mmol/L (136-145)
== END | disposition home or self-care (01) ==
LOC: MTLAB 08:27
PROVIDERS: PCP Internal Medicine; Referring Provider Internal Medicine Rheumatology; Visit Provider Internal Medicine Rheumatology
DX: M05.70 Rheumatoid arthritis with rheumatoid factor of unspecified site without organ or systems involvement (principal); R76.8 Other specified abnormal immunological findings in serum; Z79.899 Other long term (current) drug therapy
CPT/HCPCS: 36415; 80053; 85025

== ENCOUNTER → 2023-11-03 | Outpatient (CLI) | payer MEDICARE, SELFPAY ==
[2023-11-03 10:28] LABS: Absolute Lymphocyte Count 1.67 X10^3/uL (0.83-4.51); Basophil# 0.06 X10^3/uL; Eosinophil# 0.11 X10^3/uL; Eosinophils% 1.9 % (0-5); Hematocrit 38.4 % (37-47); Hemoglobin 12.1 g/dL (12.0-15.0); Lymphocyte # 1.67 X10^3/ul (0.83-4.51); Lymphocyte % 28.9 % (19-41); Mean Corp Hgb Conc 31.5 g/dL (32-36); Mean Corpuscular Hgb 29.2 pg (27.0-32.0); Mean Corpuscular Volume 92.5 fL (81-99); Mean Platelet Vol. 10.1 fl (6.2-12.0); Monocyte# 0.88 X10^3/uL; Monocyte% 15.3 % (0-10); NRBC Flagged by Analyzer 0 % (0-5); Neutrophil # 3.04 X10^3/uL (2.7-7.7); Neutrophil % 52.7 % (47-70); Platelet Count 191 K/mm3 (150-450); RBC Distribution Width CV 15.1 % (11.6-14.6); RBC Distribution Width SD 51.1 fl (35.1-43.9); Red Blood Count 4.15 M/mm3 (4.2-5.4); White Blood Count 5.8 K/mm3 (4.4-11.0)
[2023-11-03 10:29] LABS: Vitamin D,25 Hydroxy 58.4 ng/mL
[2023-11-03 10:36] LABS: PTHIN 84.4 pg/mL (18.4-80.1)
[2023-11-03 10:48] LABS: ALB/GLOB Ratio 0.8 RATIO (0.9-2.4); AST(SGOT) 29 U/L (15-37); Alanine Aminotransfer ALT/SGPT 23 U/L (13-56); Albumin, Serum 2.9 g/dL (3.2-5.0); Alkaline Phosphatase 69 U/L (45-117); Anion Gap 6 (5-15); BUN 24 mg/dL (7-18); Bilirubin, Direct 0.12 mg/dL (0.00-0.30); Calcium,Total 9.7 mg/dL (8.5-10.1); Chloride 110 mmol/L (98-107); Creatinine, Serum 1.33 mg/dL (0.55-1.02); EST Glomerular Filtration Rate 42 mL/min (>60); Est Glom Filt Rate - Afr Amer 51 mL/min (>60); Globulin 3.6 g/dL (2.2-4.2); Glucose 109 mg/dL (74-106); Potassium 3.6 mmol/L (3.5-5.1); Protein, Total 6.5 g/dL (6.4-8.2); Sodium Level 141 mmol/L (136-145); T4 Free Direct 1.08 ng/dL (0.76-1.46)
[2023-11-04 15:09] LABS: PROEL- A/G Ratio 1.1 (0.7-1.7); PROEL- Alpha-1 Globulin 0.3 g/dL (0.0-0.4); PROEL- Alpha-2 Globulin 0.9 g/dL (0.4-1.0); PROEL- Beta Globulin 1.1 g/dL (0.7-1.3); PROEL- Gamma Globulin 0.6 g/dL (0.4-1.8); PROEL- Globulin, Total 2.8 g/dL (2.2-3.9); PROEL- TOTAL PROTEIN 5.8 g/dL (6.0-8.5); PROEL-M-Spike Not Observed g/dL (Not Observed)
== END | disposition home or self-care (01) ==
LOC: MTLAB 08:05
PROVIDERS: PCP Internal Medicine; Referring Provider Internal Medicine; Visit Provider Internal Medicine
DX: L29.9 Pruritus, unspecified (principal); M05.70 Rheumatoid arthritis with rheumatoid factor of unspecified site without organ or systems involvement; L20.89 Other atopic dermatitis; L82.1 Other seborrheic keratosis; R76.8 Other specified abnormal immunological findings in serum; Z79.899 Other long term (current) drug therapy; E83.52 Hypercalcemia
CPT/HCPCS: 80053; 82248; 82306; 83970; 84165; 84439; 84443; 85025

== ENCOUNTER 2023-11-27 10:00 | Outpatient (RCR) | payer MEDICARE, SELFPAY ==
--- NOTE | 2023-10-13 11:56 | HP.PTEVAL ---
Patient's Visit Information Visit Information Visit Information: CARISSA FERNÁNDEZ is a 68 year old F referred to Physical Therapy by Dr. Madan Velásquez MD with a diagnosis of L hip pain. Date of Evaluation: 10/08/23 Physical Therapist: Harvey Morse DPT Visit Plan Frequency: 2x /Week Duration: 6 Weeks Plan: Start with L hip and lumbar ROM. Start with lumbar extension progression. Add in piriformis stretching as well. Progress to BLE and core strengthening as able. May use US to lumbar spine and L gluteal region to reduce symptoms if needed. Subjective Subjective: Pt. is here today for her initial evaluation with diagnosis of L hip pain. Pt. reports having hip pain for a few months now. She reports no mech of injury. Pt. reports pain upto 7/10 mostly at night. NO imaging yet. Her pain she reports starts in her upper part of her L gluteal region but will go down her entire leg and sometimes down both legs. She is taking tramadol at night, but this was for a previous issues with blood clots, she is also on Eliquis for her blood clots. She reports biggest issues in at night and in the mornings. She has RA and is on medicine for this as well. She reports a few years ago her general mobility with very limited secondary to pain. Pt. 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 She will have to stand up to 1 hour. Pt. is hopeful to reduce symptoms and increase her BLE strength in order to complete all daily and work activities without limitations. Pain L posterior hip: Pain Intensity (Out of 10): 5 Pain Intensity Range: 3 and 8 Objective Objective: POSTURE: Pt. has general flexed posture, wide STACEY. overall slouched pattern. PALPATION: Pt. has increased tenderness at L gluteal region, as well as piriformis. No pain with palpation throughout rest of LE. Pt.is have pain with spring testing throughout lumbar spine with hypomobility noted there as well. NEURO: Pt. c/o tingling in her legs, but has similar sensation bilaterally and normal DTR of BLEs. Pt. is able to rise on heels and toes without issues. ROM: Lumbar spine: flexion mod loss increase NW, ext mod loss mild decrease NB, SB mod loss billat increase NW, rotation mod loss bilat increase NW. L hip: flexion 110deg increase NW, ext 0deg NE, ER 50eg increase NW, IR 20deg NE. Tight HS bilaterally. MMT: RLE: ankle 5/5 throughout; knee: ext 12.3#, flexion 5.1#; hip: flexion 0#, abd 4#. LLE: ankle 5/5 throughout; knee: ext 11.4#, flexion 4.2#, hip: flexion 0#, abd 3#. GAIT: Pt. ambulates with out AD today. She repots typically using a SPC. Pt. reports no walking much due to her levels of pain. STAIRS: DNT. Special Tests L/S Slump test left side: Positive L/S Slump test right side: Negative L/S Left Straight Leg Raise: Positive L/S Right Straight Leg Raise: Negative Lumbar Standing: Flexion - Mechanical Response: No effect Lumbar Standing: Flexion - Symptoms During Testing: Increases Lumbar Standing: Flexion - Symptoms After Testing: No worse Lumbar Standing: Extension - Mechanical Response: No effect Lumbar Standing: Extension - Symptoms During Testing: Decreases Lumbar Standing: Extension - Symptoms After Testing: No better Lumbar Standing: Right Side Glides - Mechanical Response: No effect Lumbar Standing: Right Side [place] - Symptoms During Testing: Increases Lumbar Standing: Right Side [place] - Symptoms After Testing: No worse Lumbar Standing: Left Side [place] - Mechanical Response: No effect Lumbar Standing: Left Side [place] - Symptoms During Testing: Increases Lumbar Standing: Left Side [place] - Symptoms After Testing: No worse Lumbar Lying: Flexion - Mechanical Response: No effect Lumbar Lying: Flexion - Symptoms During Testing: No effect Lumbar Lying: Flexion - Symptoms After Testing: No effect Lumbar Lying: Extension - Mechanical Response: No effect Lumbar Lying: Extension - Symptoms During Testing: Decreases Lumbar Lying: Extension - Symptoms After Testing: No better Balance/Special Test Scores Lower Extremity Functional Score: 30 Goals Goal 1:: LTG: Pt. to be I with HEP for lumbar/hip ROM and BLE strengthening. Goal Time Frame: 4-6 Weeks Goal 2:: STG: Pt. to sleep throughout the night without increase in symptoms. Goal Time Frame: 2-4 Weeks Goal 3:: LTG: Pt. to have increased core and BLE strength by 5# throughout. Goal Time Frame: 4-6 Weeks Goal 4:: LTG: Pt. to have increased ROM of lumbar spine and L hip to at least 75% of full. Goal Time Frame: 4-6 Weeks Goal 5:: LTG: Pt. to stand for 10+ min with 0-2/10 in her L glute and LLE. Goal Time Frame: 4-6 Weeks Rehabilitation Potential Physical Therapy Diagnosis: Pt. has signs and symptoms consistent with L hip pain. She does have dural signs with testing this date. He has some pain in her gluteal region that is tender, but did have + low back symptoms. Pt. would benefit from PT to increase both lumbar spine and hip ROM and increase BLE strength to increase overall ability to complete daily and work activities. Rehabilitation Potential: Good Anticipated Interventions Patient/Client Instruction: Educate patient on: Condition, Plan of Care, Risk Factors and Benefits of Fitness Program For the Purpose of:: To facilitate caregiver knowledge, To improve self management, To prevent re-injury, To improve ability to perform tasks related to life management and To improve tolerance to ADL's Therapeutic Exercise to Include: Strength training, Power training, Postural training, Flexibilty training, Passive ROM, Active ROM, Dynamic Lumbar Stabilization and [place] Exercises For the Purpose of:: To decrease pain, To increase ROM, To improve nutrient delivery to tissue, To increase oxygenation perfusion, To improve muscle performance and motor function, To improve ability to perform ADL's, To increase tolerance to activity/condition/position, To decrease soft tissue restriction and To increase flexibility/ROM Manual Therapy Techniques to Include: Mobilization For the Purpose of:: To decrease pain, To decrease swelling/inflammation and To increase ROM Ultrasound (thermal/non thermal): Yes For the Purpose of:: To decrease pain, To decrease swelling/inflammation, To increase ROM and To improve nutrient delivery to tissue Text: Thank you for the opportunity to evaluate your patient. For Medicare and Medicare HMO plans, please review the plan of care and approve it. It will need to be FAXED BACK to us at [phone] for Medicare purposes. For Medicare only, by signing this I certify the plan of care. Please let me know if there are questions or concerns regarding this plan of care. Physician Signature: Date:
--- NOTE | 2023-11-27 12:30 | HP.PTDCSUM ---
Discharge Summary D/C summary: It has been my pleasure to treat CARISSA FERNÁNDEZ referred by Dr. Madan Velásquez MD, with the diagnosis of L hip pain for a total of 13 visit(s). Discharge Date: 11/27/23 Please see the following information for a summary of their discharge status. Subjective Subjective: Pt. reports overall having good days and bad days, but overall not much better. Pt. reports today is a good day. Pt. reports feeling better overall, but unable to say that she is doing great. Pain L posterior hip: Pain Intensity (Out of 10): 3 Low back: Pain Intensity (Out of 10): 6 Overall Improvement % Improvement: 15 Objective Objective/Function: LUMBAR SPINE: flexion min loss NE, ext min loss mild increase NW, SB min loss bilat NE, rotation min loss bilat increase NW. PT. has good HS length, mild soreness. Good hip ROM bilaterally without increase in symptoms. - slump test, but did have pain with SLR testing. MMT: LLE: ankle 5-/5 throughout; knee: ext 12.3#, flexion 19.3#. RLE: ankle 5/5 throughout; knee: ext 18.9#, flexion 17.2# GAIT: Pt. has increased lateral sway with gait, but no Trendelenburg noted. Pt. reports being about stand 10-15min at a time, but does have increased pain with doing so. 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 Goals Goal 1:: LTG: Pt. to be I with HEP for lumbar/hip ROM and BLE strengthening. Goal Progress: Goal Met Goal 2:: STG: Pt. to sleep throughout the night without increase in symptoms. (pt. reports 3 out of 7 days is pretty good). Goal Progress: Progressing Goal 3:: LTG: Pt. to have increased core and BLE strength by 5# throughout. Goal Progress: Progressing Goal 4:: LTG: Pt. to have increased ROM of lumbar spine and L hip to at least 75% of full. Goal Progress: Progressing Goal 5:: LTG: Pt. to stand for 10+ min with 0-2/10 in her L glute and LLE. Goal Progress: Progressing Plan Plan: At this point in time. I would suggest her to follow up with pain management as this has been suggested by PCP. PT. has not provided enough relief to merit continuing. She will be DC from PT at this point in time. D/C Information d/c sentence: If there are questions or concerns regarding this patient's physical therapy, please feel free to call me at [phone]. Thank you for the referral of this patient. Sincerely, Harvey Morse, DPT Balance/Gait/Functional tests Balance/Special Test Scores Lower Extremity Functional Score: 32 Improvement % Improvement: 15
== END 2023-11-27 19:00 | disposition home or self-care (01) ==
LOC: PT 10:00
PROVIDERS: PCP Internal Medicine; Referring Provider Internal Medicine; Visit Provider Internal Medicine
DX: M25.552 Pain in left hip (principal); M79.18 Myalgia, other site
CPT/HCPCS: 97110; 97161; 97530

== ENCOUNTER → 2023-12-05 | Outpatient (CLI) | payer MEDICARE, SELFPAY | END | disposition home or self-care (01) | LOC: PSN 07:54 | PROVIDERS: PCP Internal Medicine; Referring Provider Internal Medicine; Visit Provider Internal Medicine | DX: J45.909 Unspecified asthma, uncomplicated (principal) | CPT/HCPCS: 94060; 94726; 94729 ==

== ENCOUNTER → 2023-12-25 | Outpatient (CLI) | payer MEDICARE, SELFPAY ==
--- NOTE | 2023-12-25 14:49 | RAD_ITS ---
STUDY: X-RAY - LUMBOSACRAL SPINE REASON FOR EXAM: Female, 68 years old. Spinal stenosis, lumbar region with neurogenic claudication TECHNIQUE: 7 view(s) of the lumbosacral spine were obtained with flexion and extension. COMPARISON: None FINDINGS: Normal lumbar lordosis. There is mild dextroscoliosis of the lumbar spine. There is normal alignment of the vertebrae. Normal vertebral bodies and endplates. Moderate loss of disc height and facet joints degenerative changes at L4-L5 and L5-S1. No acute abnormalities or fractures. With flexion and extension, there is decreased range of motion but no subluxations. Normal bilateral sacral ala, sacroiliac joints, and visualized sacrum. Normal visualized soft tissue structures. RAD/L/S Spine Comp/w Bending Views IMPRESSION: No acute abnormality. Degenerative changes of the lower lumbar spine. Electronically Signed: Freddie Larson MD at 15:16 EDT ,
== END | disposition home or self-care (01) ==
PROVIDERS: PCP Internal Medicine; Referring Provider Anesthesiology Pain Medicine; Visit Provider Anesthesiology Pain Medicine
DX: M48.062 Spinal stenosis, lumbar region with neurogenic claudication (principal)
CPT/HCPCS: 72114

== ENCOUNTER 2024-01-10 17:02 | Emergency (ER) | payer MEDICARE, SELFPAY ==
[2024-01-10 17:05] VITALS: BP 168/93; PULSE 62; RESP 18; TEMP 36; O2SAT 99; BMI 47.0
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
--- NOTE | 2024-01-10 17:16 | CT_ITS ---
STUDY: CT CERVICAL SPINE WITHOUT CONTRAST REASON FOR EXAM: Female, 68 years old. neck pain RADIATION DOSAGE (If Supplied By Facility): CTDIvol = ( 28.49 ) mGy, DLP = ( 563.83 ) mGycm TECHNIQUE: High resolution transaxial imaging was performed without contrast material. Sagittal and coronal images were reconstructed. Individualized dose optimization techniques were used for this CT. COMPARISON: None FINDINGS: Normal craniovertebral junction. Normal anterior atlantoaxial articulation. Normal odontoid process. Straightening of the cervical lordosis. Normal vertebral bodies and posterior osseous elements. C2-3: Normal endplates. Normal disc height and morphology. Normal central canal. Facet hypertrophy slightly narrowing the left intervertebral neural foramen. C3-4: Spurring at the endplates. Narrowed disc height. Normal central canal and intervertebral neuroforamina. C4-5: Spurring at the endplates. Narrowed disc height with vacuum phenomenon. Normal central canal. Uncovertebral spurring slightly narrowing the intervertebral neuroforamina. C5-6: Spurring at the endplates. Narrowed disc height. Normal central canal. Uncovertebral spurring slightly narrowing the right intervertebral neural foramen. C6-7: Spurring at the endplates. Narrowed disc height. Normal central canal. Uncovertebral spurring slightly narrowing the right intervertebral neural foramen. C7-T1: Normal endplates. Normal disc height and morphology. Normal central canal and intervertebral neuroforamina. Enlarged heterogeneous left thyroid lobe with underlying nodules. CT/Spine Cervical without Contras IMPRESSION: Degenerative changes of the cervical spine. Electronically Signed: Casa Benitez DO at 18:14 EDT Reading Location ID and State: [facility] / [place] Tel [phone], Service support ,
--- NOTE | 2024-01-10 17:16 | CT_ITS ---
STUDY: CT BRAIN WITHOUT CONTRAST REASON FOR EXAM: Female, 68 years old. head injury RADIATION DOSAGE (If Supplied By Facility): CTDIvol = ( 44.99 ) mGy, DLP = ( 796.11 ) mGycm TECHNIQUE: Transaxial CT imaging of the brain was performed without administration of intravenous contrast material. Individualized dose optimization techniques were used for this CT. COMPARISON: No relevant priors. FINDINGS: Normal soft tissue structures. Normal calvarium. Normal size ventricles and extra-axial spaces for the patient''s age. Normal white matter tracts of the cerebral hemispheres. Normal basal ganglia and thalami. Normal brainstem. Normal cerebellum. There is no intracranial hemorrhage. There are no findings of an acute ischemic infarction. Normal visualized paranasal sinuses. CT/Brain/Head without Contrast IMPRESSION: Normal unenhanced CT scan of the brain. Electronically Signed: Casa Benitez DO at 17:59 EDT ,
--- OUTSIDE RECORDS SUMMARY | 2024-01-10 17:23 | XMS RPT_ITS | CCD ---
Author Organization [facility] Inform ion Partnership [facility] Care Team Providers Care Plate Mill Hand Name Role Phone Santos, Lucy L. Unavailable Unavailable Santos, Lucy L. Unavailable Unavailable Santos, Lucy L. Unavailable Unavailable Santos, Lucy L. Unavailable Unavailable Santos, Lucy L. Unavailable Unavailable Santos, Lucy L. Unavailable Unavailable Santos, Lucy L. Unavailable Unavailable Santos, Lucy L. Unavailable Unavailable Moni Velásquez MD Primary Care Provider [phone] KIRAN GIFFORD Attending Unavailable OLEGHE, EFEWONGBE B Primary Care Unavailable KIRAN GIFFORD Attending Unavailable OLEGHE, EFEWONGBE B Primary Care Unavailable KIRAN GIFFORD Attending Unavailable OLEGHE, EFEWONGBE B Primary Care Unavailable OLEGHE, EFEWONGBE B Primary Care Unavailable KIRAN GIFFORD Attending Unavailable OLEGHE, EFEWONGBE B Primary Care Unavailable ARIC CARRILLO Attending Unavailable FREDDIE RANDALL Referring Unavailable KIRAN GIFFORD Attending Unavailable OLEGHE, EFEWONGBE B Primary Care Unavailable OLEGHE, EFEWONGBE B Primary Care Unavailable KIRAN GIFFORD Attending Unavailable MARY SAUL Referring Unavailable OLEGHE, EFEWONGBE B Primary Care Unavailable KIRAN GIFFORD Attending Unavailable KIRAN GIFFORD Attending Unavailable OLEGHE, EFEWONGBE B Primary Care Unavailable OLEGHE, EFEWONGBE B Primary Care Unavailable Allergies Allergy Classification Reported Allergen(s) Allergy Type Date of Onset Reaction(s) Facility (10 sources) Sulfonamides (Antibiotic); Translations: [SULFA (SULFONAMIDE ANTIBIOTICS)] Drug Intolerance 8 [facility] (9 sources) amLODIPine; Translations: [AMLODIPINE] Drug Allergy 3 [facility] (9 sources) Hydroxychloroquin e; Translations: [HYDROXYCHLOROQUI NE] Drug Allergy 3 [facility] Medications Current Medications Medication Drug Class(es) Dates Sig (Normalized) Sig (Original) moxifloxacin 5 mg/ml ophthalmic solution (2 sources) Quinolone Antimicrobial Start: 02-28-2023 End: 03-14-2023 take 1 drop(s) into the eye(s) four times daily moxifloxacin (VIGAMOX) 0.5 % ophthalmic solution Use 1 Drop in the right eye four times daily for 14 days. 3 mL 1 02/28/2023 03/14/2023 Active Comment on above: Use 1 Drop in the ri ght eye four times daily for 14 days. prednisoLONE acetate 10 mg/ml ophthalmic suspension (10 sources) Corticosteroid Start: 02-28-2023 End: 03-07-2023 prednisoLONE acetate (PRED FORTE) 1 % ophthalmic suspension Use 1 Drop in the right eye four times daily for 7 days. 5 mL 3 02/28/2023 03/07/2023 Active Start: 11-19-2022 prednisoLONE a cetate (PRED FORTE) 1 % ophthalmic suspension instill 1 drop into right eye three times a day 0 11/19/2022 Active Comment on above: instill 1 drop into right eye three times a day Use 1 Drop in the ri ght eye four times daily for 7 days. Completed/Discontinued Medications Medication Drug Class(es) Dates Sig (Normalized) Sig (Original) acetaminophen 325 mg oral capsule (8 sources) Start: 2020 acetaminophen 325 mg cap Take by mouth. 0 2020 Active Comment on above: Take by mouth. [id number] 200 actuat albuterol 0.09 mg/actuat metered dose inhaler (9 sources) beta2-Adrenergic Agonist Start: 10-05-2018 take 2 puff(s) by inhalation every six hours as needed albuterol HFA (PROAIR HFA) 90 mcg/actuation inhaler 2 Puffs every 6 hours as needed. Take as directed 2 Inhaler 0 10/05/2018 Active Comment on above: 2 Puffs every 6 hour s as needed. Take as directed amLODIPine 10 mg oral tablet (8 sources) Dihydropyridine Calcium Channel Kaden Start: 10-05-2018 take 1 tablet by mouth once daily amLODIPine (NORVASC) 10 mg tablet Indications: Essential hypertension Take 1 tablet by mouth once daily. 90 tablet 1 10/05/2018 Active Comment on above: Take 1 tablet by belen th once daily. apixaban 5 mg oral tablet (2 sources) Factor Xa Inhibitor Start: 04-17-2023 take 1 tablet by mouth twice daily ELIQUIS 5 mg tab(s) Take 5 mg by mouth two times a day. 0 04/17/2023 Active Comment on above: Take 5 mg by mouth t wo times a day. atenolol 50 mg oral tablet (8 sources) beta-Adrenergic Kaden Start: 09-21-2018 take 2 tablets by mouth once daily atenolol (TENORMIN) 50 mg tablet Take 2 tablets by mouth once daily. 180 tablet 1 09/21/2018 Active Comment on above: Take 2 tablets by mo [facility] once daily. betamethasone 0.5 mg/ml topical cream (8 sources) Corticosteroid Start: 04-12-2019 betamethasone dipropionate (DIPROSONE) 0.05 % cream Apply to affected area. 0 04/12/2019 Active Comment on above: Apply to affected ar ea. calcium carbonate 1250 mg oral tablet (8 sources) Start: 12-28-2019 take 1 tablet by mouth once daily calcium carbonate (OS-TAHIR 500) 500 mg calcium (1,250 mg) tablet Take 1 tablet by mouth once daily. 0 12/28/2019 Active Start: 12-28-2019 calcium carbon ate (OS-TAHIR 500) 500 mg calcium (1,250 mg) tablet Take 500 mg by mouth. 0 12/28/2019 Active Comment on above: Take 500 mg by mouth . Take 1 tablet by belen th once daily. cholecalciferol 0.025 mg oral tablet (8 sources) Vitamin D Start: 12-28-19 20 take 1 tablet by mouth once daily cholecalciferol (VITAMIN D3) 1,000 unit tab tablet Take 1,000 Units by mouth once daily. 0 12/28/2019 Active Start: 12-28-2019 cholecalcifero l (VITAMIN D3) 1,000 unit tab tablet Take by mouth. 0 12/28/2019 Active Comment on above: Take by mouth. Take 1,000 Units by mouth once daily. ciclopirox 80 mg/ml topical solution (9 sources) Start: 09-09-19 Ciclopirox (LOPROX) 8 % solution Indications: Toenail fungus Apply 1 application to affected area daily at bedtime. 1 Bottle 0 09/08/2017 Active Comment on above: Apply 1 application to affected area daily at bedtime. fenofibrate 54 mg oral tablet (8 sources) Peroxisome Proliferator Receptor alpha Agonist Start: 11-15-19 take 1 tablet by mouth once daily Fenofibrate (LOFIBRA) 54 mg tablet Take 54 mg by mouth once daily. 0 11/14/2022 Active Comment on above: Take 54 mg by mouth once daily. furosemide 40 mg oral tablet (8 sources) Loop Diuretic Start: 09-22-19 19 take 1 tablet by mouth once daily furosemide (LASIX) 40 mg tablet Take 1 tablet by mouth once daily. 90 tablet 1 09/21/2018 Active Comment on above: Take 1 tablet by belen th once daily. ganciclovir 0.0015 mg/mg ophthalmic gel (8 sources) Cytomegalovirus Nucleoside Analog DNA Polymerase Inhibitor, Nucleoside Analog Antiviral Start: 12-12-19 apply 1 drop(s) into the eye(s) five times daily ganciclovir (ZIRGAN) 0.15 % ophthalmic gel Use 1 Drop in the right eye five times daily. 5 g 4 12/11/2022 Active Comment on above: Use 1 Drop in the ri ght eye five times daily. GEMTESA 75 mg tablet (8 sources) Start: 11-24-19 take 1 tablet by mouth once daily GEMTESA 75 mg tablet Take 75 mg by mouth once daily. 0 11/23/2022 Active Start: 11-23-2022 GEMTESA 75 mg tablet Comment on above: Take 75 mg by mouth once daily. hydrALAZINE hydrochloride 50 mg oral tablet (8 sources) Arteriolar Vasodilator Start : 09-19 hydrALAZINE (APRESOLINE) 50 mg tablet hydroCHLOROthiazide 25 mg oral tablet (8 sources) Thiazide Diuretic Start : 09-19 take 1 tablet by mouth once daily hydroCHLOROthiazide 25 mg tablet Take 25 mg by mouth once daily. 0 09/19/2022 Active Comment on above: Take 25 mg by mouth once daily. leflunomide 20 mg oral tablet (8 sources) Antirheumatic Agent Start : 12-02 take 1 tablet by mouth once daily leflunomide (ARAVA) 20 mg tablet Take 20 mg by mouth once daily. 0 12/02/2022 Active Comment on above: Take 20 mg by mouth once daily. simvastatin 20 mg oral tablet (8 sources) HMG-CoA Reductase Inhibitor Start : 10-05 take 1 tablet by mouth once daily at bedtime simvastatin (ZOCOR) 20 mg tablet Indications: Mixed hyperlipidemia Take 1 tablet by mouth daily at bedtime. 90 tablet 1 10/05/2018 Active Comment on above: Take 1 tablet by belen th daily at bedtime. sodium chloride 0.435380 meq/mg ophthalmic ointment (8 sources) Start : 12-04 sodium chloride (RODRIGUE 128) 5 % ophthalmic ointment Use 1 application in the right eye daily at bedtime. 3.5 g 5 12/04/2022 Active Comment on above: Use 1 application in the right eye daily at bedtime. traMADol hydrochloride 50 mg oral tablet (8 sources) Opioid Agonist Start : 10-08 take 1 tablet by mouth every eight hours as needed traMADol (ULTRAM) 50 mg tablet Take 50 mg by mouth three times daily as needed. 0 10/08/2022 Active Comment on above: Take 50 mg by mouth three times daily as needed. TURMERIC ROOT EXTRACT ORAL (8 sources) Start : 05-01 TURMERIC ROOT EXTRACT ORAL Take 400 mg by mouth. 0 05/01/2020 Active Comment on above: Take 400 mg by mouth . valACYclovir 1000 mg oral tablet (8 sources) Herpesvirus Nucleoside Analog DNA Polymerase Inhibitor, Herpes Simplex Virus Nucleoside Analog DNA Polymerase Inhibitor, Herpes Zoster Virus Nucleoside Analog DNA Polymerase Inhibitor Start : 11-20 take 1 tablet by mouth once valACYclovir (VALTREX) 1 gram Take 1 tablet by mouth every 12 (twelve) hours. 0 11/20/2022 Active Comment on above: Take 1 tablet by belen th every 12 (twelve) hours. valsartan 320 mg oral tablet (9 sources) Angiotensin 2 Receptor Kaden Start : 10-05 take 1 tablet by mouth once daily valsartan (DIOVAN) 320 mg tablet Take 1 tablet by mouth once daily. 90 tablet 0 10/05/2018 Active Comment on above: Take 1 tablet by belen th once daily. Problems Active Problems Problem Classification Problem Date Documented Da te Episodic/Chronic Cataract (3 sources) Artificial lens present; Translations: [Presence of intraocular lens] 01-01-2023 Chronic Disorders of lipid metabolism (9 sources) Mixed hyperlipidemia; Translations: [Mixed hyperlipidemia] 06-06-2017 Chronic Essential hypertension (9 sources) Essential hypertension; Translations: [Essential (primary) hypertension] 06-06-2017 Chronic Gout and other crystal arthropathies (9 sources) Gout; Translations: [Gout, unspecified] Onset: 04-07-2018 04-07-2018 Chronic Other connective tissue disease (9 sources) Swelling of lower limb; Translations: [Other specified soft tissue disorders] 06-06-2017 Episodic Other endocrine disorders (9 sources) Adrenal mass; Translations: [Other specified disorders of adrenal gland] Onset: 02-14-2017 06-06-2017 Chronic Other eye disorders (2 sources) Secondary corneal edema; Translations: [Secondary corneal edema, right eye] 01-01-2023 Episodic Other eye disorders (3 sources) Scar of cornea of right eye; Translations: [Unspecified corneal scar and opacity] 01-01-2023 Episodic Other nutritional; endocrine; and metabolic disorders (9 sources) Body mass index 40+ - severely obese; Translations: [Morbid (severe) obesity due to excess calories] 06-06-2017 Chronic Pulmonary heart disease (1 source) Saddle embolus of pulmonary artery; 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] 04-25-2023 Chronic Thyroid disorders (9 sources) Thyroid nodule; Translations: [Nontoxic single thyroid nodule] Onset: 02-14-2017 06-06-2017 Chronic Unclassified (1 source) Unknown / UNK(Unknown) Onset: 09-19-2016 Past or Other Problems Problem Classification Problem Date Documented Da te Episodic/Chronic Other lower respiratory disease (1 source) Dyspnea Onset: 09-19-2016 Episodic Results Test Name Value Interpretation Reference Range [facility] Office ([facility]) -------- ANH EWING ([id number]) 1955 F CHT Date Time Provider Department 04/25/23 10:30 AM ARIC CARRILLO During your visit today, we recorded the following information about you: Temperature Pulse Blood pressure Weight 97.1 degrees 60/minute 105/70 122.2 kg Height 1.642 m Aric Carrillo MD 04/25/2023 3:47 PM Signed HISTORY OF PRESENT ILLNESS: Anh Ewing is [...] not taking: Reported on 04/25/2023) sodium chloride (RODRIGUE 128) 5 % ophthalmic ointment Use 1 [...] All other reviewed and negative other than HPI (more content not included)... [facility] ANES POSTPROC EVALon 023 ANES POSTPROC EVAL HNO ID: [id number] Author: Suzanne Gordon MD Service: ? Author Type: Anesthesiologist Type: Anesthesia Postprocedure Evaluation Filed: 02/28/2023 4:04 PM Note Text: POST ANESTHESIA EVALUATION NOTE : 1955 Procedure Summary Date: 02/28/23 Room / Location: [address] Anesthesia Start: 1408 Anesthesia Stop: 1459 Procedure: KERATOPLASTY ENDOTHELIAL DESCEMET MEMBRANE (DMEK) (Right: Eye) Diagnosis: Corneal edema, secondary, right (Corneal edema, secondary, right [H18.231]) Surgeons: Kiran Gifford MD Responsible Provider: Suzanne Gordon MD Anesthesia Type: MAC ASA Status: 3 Anesthesia Type: No value filed. Last Vitals Vitals Value Taken Time BP 140/65 02/28/23 1555 Temp 36.1 ?C (97 ?F) 02/28/23 1505 Pulse 53 02/28/23 1555 Resp 16 02/28/23 1555 SpO2 97 % 02/28/23 1555 Post Anesthesia Patient Status Patient Evaluation: bedside. Anticipated Disposition: phase 2 then home. Neurological Status: aware and responsive. Pulmonary Status: breathing comfortably on room air Airway Control: returned to baseline unsupported. Cardiovascular Status: stable. Pain Management: satisfactory to patient - multimodal analgesia pain management approach Postoperative Hydration: acceptable. Intraoperative Events: no significant anesthesia events Post Operative Nausea/Vomiting Status: no significant post operative nausea or vomiting Recommendation: continue current plan of care. Anesthesia Observations No notable events were associated with this procedure. Documented by Kenyon Calzada APRN.NURSING COORDINATOR 02/28/2023 2:59 PM EST SIGNATURE: Suzanne Gordon MD PATIENT NAME: Anh Ewing DATE: February 28, 2023 TIME: 4:04 PM CSN: [id number] [facility] ANES PRE-OPon 02-28-2023 ANES PRE-OP HNO ID: [id number] Author: Brian Galan MD Service: ? Author Type: Anesthesiologist Type: Anesthesia Preprocedure Evaluation Filed: 02/28/2023 2:46 PM Note Text: ANESTHESIOLOGY DAY OF SURGERY NOTE : 1955 Procedure Information Anesthesia Start Date/Time: 02/28/231407 Procedure: KERATOPLASTY ENDOTHELIAL DESCEMET MEMBRANE (DMEK) (Right: Eye) Location: [place] [address] [facility] Surgeons: Kiran Gifford MD Estimated body mass index is 46.1 kg/m? as calculated from the following: Height as of 10/05/18: 165.1 cm (5' 5 ). Weight as of 10/05/18: 125.6 kg (277 lb). Most recent hematocrit and potassium results: Potassium 4.4 10/08/2017 Relevant Problems CARDIO (+) Essential hypertension I - PHYSICAL EVALUATION AIRWAY Patient intubated: No. Tracheostomy tube not present Mallampati: II. TM distance: >3 FB. Neck ROM: full ROM without neurological symptoms. Mouth opening: adequate. Short neck: no. Thick neck: no II - ANESTHESIA PLAN ASA Score: 3 Anesthetic Plan: MAC NPO Status: adequate Anesthetic plan additional comments: 277 lbs c/o eye light sensitivity... . Beta Kaden Monitoring Plan Monitoring plan: standard ASA. Post Procedure Analgesic Plan Postoperative analgesic plan: per surgical service. Informed Consent Anesthetic risks, benefits, alternatives, personnel and consent discussed: yes. Patient / Responsible Libertarian agrees to proceed: yes Patient / Surrogate agrees to blood products: blood products not planned Significant changes in the patient condition since the History and Physical, not otherwise documented in primary service progress note: no. Potential Anesthesia issues that may suggest increased risk of complications or contraindication to planned procedure: none. Vitals Value Taken Time BP 134/64 02/28/23 1256 Pulse 55 02/28/23 1256 Resp 16 02/28/23 1256 Temp 36.1 ?C (97 ?F) 02/28/23 1256 SpO2 96 % 02/28/23 1256 Facility-Administered Medications as of 02/28/2023 Medication Dose Route Frequency - lactated ringers iv infusion 30 mL/hr INTRAVENOUS CONTINUOUS - [COMPLETED] pilocarpine 1 % 1 Drop (ISOPTO CARPINE) 1 Drop RIGHT EYE q 5 MIN - lidocaine-bupivacaine 10-3.75 mg/mL retrobulbar injection X (OR/PROCEDURE) PRN - Povidone-Iodine 5 % ophth soln (BETADINE) X (OR/PROCEDURE) PRN - balanced salt ophthalmic solution (BSS) X (OR/PROCEDURE) PRN - lidocaine 4% ophthalmic solution (XYLOCAINE) X (OR/PROCEDURE) PRN - sodium hyaluronate 10 mg/mL injection X (OR/PROCEDURE) PRN - balanced salts (BSS) X (OR/PROCEDURE) PRN Outpatient Medications as of 02/28/2023 Medication Sig - traMADol (ULTRAM) 50 mg tablet Take 50 mg by mouth three times daily as needed. - hydroCHLOROthiazide 25 mg tablet - hydrALAZINE (APRESOLINE) 50 mg tablet - cholecalciferol (VITAMIN D3) 1,000 unit tab tablet Take by mouth. - calcium carbonate (OS-TAHIR 500) 500 mg calcium (1,250 mg) tablet Take 500 mg by mouth. - Fenofibrate (LOFIBRA) 54 mg tablet - GEMTESA 75 mg tablet - sodium chloride (RODRIGUE 128) 5 % ophthalmic ointment Use 1 application in the right eye daily at bedtime. - valsartan (DIOVAN) 320 mg tablet Take 1 tablet by mouth once daily. - prednisoLONE acetate (PRED FORTE) 1 % ophthalmic suspension instill 1 drop into right eye three times a day - valACYclovir (VALTREX) 1 gram Take 1 tablet by mouth every 12 (twelve) hours. - leflunomide (ARAVA) 20 mg tablet - TURMERIC ROOT EXTRACT ORAL Take 400 mg by mouth. - betamethasone dipropionate (DIPROSONE) 0.05 % cream Apply to affected area. - acetaminophen 325 mg cap Take by mouth. - albuterol HFA (PROAIR HFA) 90 mcg/actuation inhaler 2 Puffs every 6 hours as needed. Take as directed - Ciclopirox (LOPROX) 8 % solution Apply 1 application to affected area daily at bedtime. I have interviewed and examined the patient. I have reviewed the medical record and/or the pre-anesthesia evaluation, pertinent labs, and test results. This contains updated information obtained within 48 hours of Surgery/Procedure. SIGNATURE: Gaurav Romero MD PATIENT NAME: Anh Ewing DATE: February 28, 2023 TIME: 2:45 PM CSN: [id number] [facility] Fungus Spec Culton 3 Fungus identified Cx Nom (Unsp spec) CULTURE, FUNGAL: No Fungus isolated after 28 days [facility] Comment on above: Performed By: #### 5 [id number] ####[facility] LABCLIA [id number] [address] [facility] OPERATIVE NOon 02-28-2023 OPERATIVE NO HNO ID: [id number] Author: Kiran Gifford MD Service: Ophthalmology Author Type: Physician Type: Operative Report Filed: 02/28/2023 3:02 PM Note Text: OPERATIVE/PROCEDURE REPORT OPHTHAMOLOGY LOG ID: [id number] SURGERY/PROCEDURE DATE: 02/28/2023 INCISION/PROCEDURE START TIME: 2:25 PM INCISION CLOSE/PROCEDURE END TIME: 2:51 PM SURGEON(S)/PROCEDURALIST (S) AND CAMPUS ADMINISTRATIVE ASSISTANT(S): Surgeon(s) and Role: * Kiran Gifford MD - Primary PROCEDURE(S): Procedure(s) (LRB): KERATOPLASTY ENDOTHELIAL DESCEMET MEMBRANE (DMEK) (Right) PREOPERATIVE DIAGNOSIS: Fuchs endothelial dystrophy, right eye POST-OP/POST-PROCEDURE DIAGNOSIS: Same as Preop OPERATIVE INDICATIONS: Blurred vision limiting activities of daily living (ADLs) ANESTHESIA: Monitored Anesthesia Care PROCEDURE DETAILS: The patient was transferred to the operating room where the eye was prepared and draped in sterile fashion. An eyelid speculum was placed and 2 paracenteses were performed near the 3 and 9 o'clock positions. Healon was injected into the anterior chamber. A 7.5mm trephine was used to theresa the epithelium, then dotted with a pen. The main incision was then created using a microkeratome. An inferior peripheral iridotomy was performed using a cystotome and Sinskey hook. A reverse Sinskey hook was then used to score and strip the Descemet's membrane which was then removed from the central posterior cornea and sent to pathology. Irrigation/aspiration was used to removed the viscoelastic from the eye Attention was then turned to preparation of the donor tissue. The preloaded, prestained, precut tissue in a DORC tube was connected to a 3cc syringe with balanced salt solution. The tissue was next injected into the anterior chamber through the corneal incision. The main incision was then sutured with an interrupted 10-0 nylon suture. The tissue was next unscrolled by using a combination of fluid bursts through the paracentesis sites and tapping the cornea externally to open the tissue and center it. After the tissue had been completely unscrolled and was verified to be in the proper orientation, 20% sulfur hexafluoride gas was injected into the anterior chamber to elevate the graft against the corneal surface. The surface was then swept, now in a [id number] fashion to evacuate any interface fluid from the graft. Five minutes were then allowed to pass without any additional surgical maneuvers to allow the graft to begin functioning. Subconjunctival injection of antibiotics and steroids was performed. The operated eye and it was covered with a patch and protective shield. The patient was transferred to the recovery room in stable condition. ESTIMATED BLOOD LOSS: Minimal unless noted here. SPECIMENS: Donor cornea to pathology. Patient cornea to pathology IMPLANTABLE DEVICES: Implant Name Type Inv. Item Serial No. Pump Operator Byproducts Lot No. LRB No. Used Action Model No. CORNEA TISSUE PRE-LOADED DMEK - [id number] Cornea CORNEA TISSUE PRE-LOADED DMEK [id number] [facility] Right 1 Implanted CORNEA TISSUE FEE GAS ISPAN CONSTELLATION INTRAOCULAR VISION SYSTEM SF6 125GM - [id number] Implant GAS ISPAN CONSTELLATION INTRAOCULAR VISION SYSTEM SF6 125GM [employer] [facility] [id number] Right 1 Implanted [id number] Ocular Co-Morbidities: No Intra-operative Complications None I/primary surgeon/proceduralist performed the entire procedure. SIGNATURE: Kiran Gifford MD PATIENT NAME: Anh Ewing DATE: February 28, 2023 TIME: 3:01 PM PAGER/CONTACT #: [phone] [facility] SURGICAL PATHOLOGYon 023 CASE REPORT [facility] Comment on above: Order Comment: Speci men Type: TISSUE SPECIMENOrdering Facility: [facility] Address: [address] [place] [address] Result Comment: Surg ical Pathology Report Case: [id number] Authorizing Provider: Kiran Gifford MD Collected: 02/28/2023 02:42 PM Ordering Location: Ophthalmology Received: 02/28/2023 10:40 PM Pathologist: Miranda Roach MD Specimen: CORNEA RIGHT Performed By: #### S ####[facility] LABCLIA [id number] [place] [address] [place] CLINICAL HISTORY corneal swelling - herpetic? surgical trauma? [facility] Comment on above: Order Comment: Speci men Type: TISSUE SPECIMENOrdering Facility: [facility] Address: [address] [place] [address] Performed By: #### S ####[facility] LABCLIA [id number] [place] [address] [place] DIAGNOSIS COMMENT PAS highlights Desce met membrane. [facility] Comment on above: Order Comment: Speci men Type: TISSUE SPECIMENOrdering Facility: [facility] Address: [address] [place] [address] Performed By: #### S ####[facility] LABCLIA [id number] [place] [address] [place] FINAL DIAGNOSIS [facility] Comment on above: Order Comment: Speci men Type: TISSUE SPECIMENOrdering Facility: [facility] Address: [address] [place] [address] Result Comment: Eye, right cornea, keratoplasty - Descemet membrane with endothelial cell loss. Performed By: #### S ####[facility] LABIA [id number] [address] [place] FINAL PERFORMING LAB [facility] Comment on above: Order Comment: Specvasyl carreno Type: TISSUE SPECIMENOrdering Facility: [facility] Address: [address] [place] [address] Result Comment: Diag nostic interpretation performed at [facility], [address] [place] [address] CLIA# [id number] Appliance Assembler: Royal Paz M.D. Performed By: #### S ####[facility] LABIA [id number] [address] [place] DESCRIPTION A. CORNEA RIGHT Normal [facility] Comment on above: Order Comment: Speci wai Type: TISSUE SPECIMENOrdering Facility: [facility] Address: [address] [place] [address] Result Comment: Rece ived in formalin designated cornea right is an irregular transparent segment of tissue which measures 0.7 x 0.4 by less than 0.1 cm. The specimen is not sectioned and is totally submitted in 1 cassette. BF March 03, 2023 9:10 AM Gross examination performed at [facility], [address] [place] [address] Performed By: #### S ####[facility] LABIA [id number] [address] OF URI[place] Andre 01-16-2023 CNPN Telephone (FAMPWS) -------- ANH EWING ([id number]) 1955 F [facility] Date Time Provider Department 01/16/23 KIRAN GIFFORD FAMPWS During your visit today, we recorded the following information about you: Goldie Low 01/16/2023 10:27 AM Signed Patient verified by name and . She has some questions and is asking for a phone call back at [phone]. Review and advise. Luciana Valencia OA 01/16/2023 3:56 PM Signed Spoke with the patient she stated that she is currently taking hydralazine and hydrochlorothiazide which she is under the care of [facility] to control her hypertension. Patient states she started these medications shortly before she started to experience the eye pain in the right eye. Patient spoke with the [facility] and they advised that she stop taking the hydrochlorothiazide to see if it helps with her eye pain. Patient is wondering if corneal edema in the right eye is a side affect of her hypertension medications. Please advise MARRY Nelson Mary Jean, RN 01/16/2023 4:37 PM Signed Will wait for Dr. Gifford to advise. Cherise West RN January 16, 2023 4:37 PM Kiran Gifford MD 01/20/2023 8:24 AM Signed Tabatha. These may causse dry eye by increasing water excretion from the body, but carolineley wsweling. She has a focal descemet ddtachment that expolains that Cherise West RN 01/20/2023 10:08 AM Signed Called and relayed Dr. Gifford's message to the patient. She voiced understanding and appreciation for name of what is causing her corneal swelling. Cherise West RN January 20, 2023 10:08 AM Allergies As of Date: 01/16/2023 Noted Allergy Reaction AMLODIPINE 08/07/2022 7 - Swelling HYDROXYCHLOROQUINE 07/04/2022 4 - Hives SULFA (SULFONAMIDE ANTIBIOTICS) 06/06/2017 4 - Hives Date Reviewed: 01/01/2023 Reviewed by: Kiran Gifford MD - Fully Assessed Reason for Visit: Patient Question [5747] Prescriptions as of 01/20/2023 - ganciclovir (ZIRGAN) 0.15 % ophthalmic gel Use 1 Drop in the right eye five times daily. - prednisoLONE acetate (PRED FORTE) 1 % ophthalmic suspension instill 1 drop into right eye three times a day - valACYclovir (VALTREX) 1 gram Take 1 tablet by mouth every 12 (twelve) hours. - traMADol (ULTRAM) 50 mg tablet Take 50 mg by mouth three times daily as needed. - hydroCHLOROthiazide 25 mg tablet - hydrALAZINE (APRESOLINE) 50 mg tablet - leflunomide (ARAVA) 20 mg tablet - cholecalciferol (VITAMIN D3) 1,000 unit tab tablet Take by mouth. - calcium carbonate (OS-TAHIR 500) 500 mg calcium (1,250 mg) tablet Take 500 mg by mouth. - TURMERIC ROOT EXTRACT ORAL Take 400 mg by mouth. - Fenofibrate (LOFIBRA) 54 mg tablet - betamethasone dipropionate (DIPROSONE) 0.05 % cream Apply to affected area. - acetaminophen 325 mg cap Take by mouth. - GEMTESA 75 mg tablet - sodium chloride (RODRIGUE 128) 5 % ophthalmic ointment Use 1 application in the right eye daily at bedtime. - amLODIPine (NORVASC) 10 mg tablet Take 1 tablet by mouth once daily. - simvastatin (ZOCOR) 20 mg tablet Take 1 tablet by mouth daily at bedtime. - albuterol HFA (PROAIR HFA) 90 mcg/actuation inhaler 2 Puffs every 6 hours as needed. Take as directed - valsartan (DIOVAN) 320 mg tablet Take 1 tablet by mouth once daily. - furosemide (LASIX) 40 mg tablet Take 1 tablet by mouth once daily. - atenolol (TENORMIN) 50 mg tablet Take 2 tablets by mouth once daily. - Ciclopirox (LOPROX) 8 % solution Apply 1 application to affected area daily at bedtime. Problem List As Of Date 01/16/2023 Noted Resolved Thyroid nodule [E04.1] 02/14/2017 Morbid obesity with BMI of 45.0-49.9, adult (HC* Mixed hyperlipidemia [E78.2] Leg swelling [M79.89] Essential hypertension [I10] Adrenal nodule (HCC) [E27.8] 02/14/2017 Gout [M10.9] 04/07/2018 Encounter Status:Closed by HELADIOCHERISE on 01/20/[address] [facility] 12-27-2022 CNPN Telephone (OPHWOO) -------- ANH EWING ([id number]) 1955 F T Date Time Provider Department 12/27/22 KIRAN GIFFORD OPHWOO During your visit today, we recorded the following information about you: Abbi Charlton 12/27/2022 11:01 AM Signed Ptient called wanting to let you know she is having carpel tunnel surgery on 01/07 and didn't know if it would affect her eyes.Abbi Laurent Pss Allergies As of Date: 12/27/2022 Noted Allergy Reaction AMLODIPINE 08/07/2022 7 - Swelling HYDROXYCHLOROQUINE 07/04/2022 4 - Hives SULFA (SULFONAMIDE ANTIBIOTICS) 06/06/2017 4 - Hives Date Reviewed: 12/11/2022 Reviewed by: Kiran Gifford MD - Fully Assessed Prescriptions as of 12/27/2022 - acetaminophen 325 mg cap Take by mouth. - albuterol HFA (PROAIR HFA) 90 mcg/actuation inhaler 2 Puffs every 6 hours as needed. Take as directed - amLODIPine (NORVASC) 10 mg tablet Take 1 tablet by mouth once daily. - atenolol (TENORMIN) 50 mg tablet Take 2 tablets by mouth once daily. - betamethasone dipropionate (DIPROSONE) 0.05 % cream Apply to affected area. - calcium carbonate (OS-TAHIR 500) 500 mg calcium (1,250 mg) tablet Take 500 mg by mouth. - cholecalciferol (VITAMIN D3) 1,000 unit tab tablet Take by mouth. - Ciclopirox (LOPROX) 8 % solution Apply 1 application to affected area daily at bedtime. - Fenofibrate (LOFIBRA) 54 mg tablet - furosemide (LASIX) 40 mg tablet Take 1 tablet by mouth once daily. - ganciclovir (ZIRGAN) 0.15 % ophthalmic gel Use 1 Drop in the right eye five times daily. - GEMTESA 75 mg tablet - hydrALAZINE (APRESOLINE) 50 mg tablet - hydroCHLOROthiazide 25 mg tablet - leflunomide (ARAVA) 20 mg tablet - prednisoLONE acetate (PRED FORTE) 1 % ophthalmic suspension instill 1 drop into right eye three times a day - simvastatin (ZOCOR) 20 mg tablet Take 1 tablet by mouth daily at bedtime. - sodium chloride (RODRIGUE 128) 5 % ophthalmic ointment Use 1 application in the right eye daily at bedtime. - traMADol (ULTRAM) 50 mg tablet Take 50 mg by mouth three times daily as needed. - TURMERIC ROOT EXTRACT ORAL Take 400 mg by mouth. - valACYclovir (VALTREX) 1 gram Take 1 tablet by mouth every 12 (twelve) hours. - valsartan (DIOVAN) 320 mg tablet Take 1 tablet by mouth once daily. Problem List As Of Date 12/27/2022 Noted Resolved Thyroid nodule [E04.1] 02/14/2017 Morbid obesity with BMI of 45.0-49.9, adult (HC* Mixed hyperlipidemia [E78.2] Leg swelling [M79.89] Essential hypertension [I10] Adrenal nodule (HCC) [E27.8] 02/14/2017 Gout [M10.9] 04/07/2018 Encounter Status:Closed by ABBI CHARLTON on 12/27/[address] [facility] 11-22-2022 [facility] Telephone (OPHWOO) -------- ANH EWING ([id number]) 1955 F [facility] Date Time Provider Department 11/22/22 KIRAN GIFFORD OPHCORKY During your visit today, we recorded the following information about you: Luciana Valencia OA 11/22/2022 3:51 PM Signed Spoke with Randee brar at the [facility] regarding this patient's referral to Dr. Gifford. She stated that the patient is scheduled to see one of their providers on Friday11/25/2022 for a follow up. Patient is scheduled to then follow up with Dr. Gifford for a consult on 12/04/2022. This patient has also been added to the wait list for a cancellation. Please advise MARRY Nelson Allergies As of Date: 11/22/2022 Noted Allergy Reaction SULFA (SULFONAMIDE ANTIBIOTICS) 06/06/2017 4 - Hives Date Reviewed: 10/05/2018 Reviewed by: Radha Jacobs (Karla), KARLA - Fully Assessed Reason for Visit: Appointment [186] Prescriptions as of 11/22/2022 - amLODIPine (NORVASC) 10 mg tablet Take 1 tablet by mouth once daily. - simvastatin (ZOCOR) 20 mg tablet Take 1 tablet by mouth daily at bedtime. - albuterol HFA (PROAIR HFA) 90 mcg/actuation inhaler 2 Puffs every 6 hours as needed. Take as directed - valsartan (DIOVAN) 320 mg tablet Take 1 tablet by mouth once daily. - furosemide (LASIX) 40 mg tablet Take 1 tablet by mouth once daily. - atenolol (TENORMIN) 50 mg tablet Take 2 tablets by mouth once daily. - Ciclopirox (LOPROX) 8 % solution Apply 1 application to affected area daily at bedtime. Problem List As Of Date 11/22/2022 Noted Resolved Thyroid nodule [E04.1] 02/14/2017 Morbid obesity with BMI of 45.0-49.9, adult (HC* Mixed hyperlipidemia [E78.2] Leg swelling [M79.89] Essential hypertension [I10] Adrenal nodule (HCC) [E27.8] 02/14/2017 Gout [M10.9] 04/07/2018 Encounter Status:Closed by LUCIANA VALENCIA on 11/22/22 Normal [facility] CT ABDOMEN W/O CONon 12-29-[address] ABDOMEN W/O CON CT ABDOMEN W/O CONOrdering Physician: Lucy Santos MD03/14/2017 8:45 AMCOMPUTED TOMOGRAPHY ABDOMENClinical Statement: Right adrenal noduleTECHNIQUE: 2.5 mm thick axial images of the abdomen were obtainedwith attention to the adrenal glands. The study was correlated with aCT thoracic angiogram dated 09/02/2016.FINDINGS: The lung bases show no acute abnormalities. There is asmall hiatal hernia.There is an 18 mm right adrenal nodule. The attenuation values averageless than 10 with many in the negative range compatible with a benignadenoma. There is slight nodularity of the left adrenal gland.IMPRESSION:18 mm right adrenal nodule felt to be due to a benign adenoma. ---- Electronic Signature on File ----Signed By: Chadd Julian MD [email or web address] [email or web address] tated: 03/14/2017 9:08 AMSigned: 03/14/2017 9:10 AM Reported By: CHADD JULIAN M.D. Signed By: CHADD JULIAN M.D. [facility] FINE NEEDLE ASPIRATION THYRO IDon 03-14-2017 FINE NEEDLE ASPIRATION THYROID FINE NEEDLE ASPIRATION THYROID, US THYROID OR NECKOrdering Physician: Lucy Santos MD03/14/2017 9:00 AMTHYROID ULTRASOUND WITH ULTRASOUND-GUIDED THYROID FINE-NEEDLEASPIRATION:Cl inical Statement: Thyroid nodule.Comparison: Thyroid ultrasound 11/20/2016.FINDINGS: Initial sonographic images of the left thyroid lobe wereobtained in correlation with the previous exam. There is a largepredominant solid nodule again shown involving the left thyroid lobemeasuring up to 4 cm with multiple small cystic areas.The ultrasound-guided thyroid fine-needle aspiration procedure andpotential risks were discussed with the patient who was agreeable andelected to proceed giving both informed written and verbal consent.The neck was prepped and draped in the usual sterile fashion. Localanesthesia was achieved using 1% lidocaine. Under ultrasound guidance,the left thyroid lobe nodule was aspirated. Three aspirates wereobtained using three separate 25-gauge needles. Images were obtainedwith each pass and saved to PACS for documentation. Slides wereprepared from the obtained aspirates and the needles were rinsed inCytoLyt. A sterile bandage was applied at the puncture site. Thepatient tolerated the procedure well with no immediate complications.IMPRESSION :Technically successful ultrasound-guided fine-needle aspiration of thepredominantly solid left thyroid lobe nodule as described. ---- Electronic Signature on File ----Signed By: Kenyon Aguero [email or web address] nate: 03/14/2017 11:14 AMSigned: 03/14/2017 11:17 AM Reported By: KENYON AGUERO M.D. Signed By: KENYON AGUERO M.D. [facility] Rachna Brown 03-14-2017 NONGYN ---- Maryam ent: ANH EWING Specimen : [id number] Spec Type: RUDY Mcgee Dr.: Lucy Santos MD Status: SOUT Collect Date: 03/14/1728 Received Date: 03/14/17 1000Source: Thyroid gland, NOS(FNA THYROID NODULE LEFT LOBE) Procedure: CELL BLOCK, CYTO NONGYN TLP Comments: RECEIVED 3 AIR DRIED SLIDE(S) (DIFF QUIK STAIN), 3 ALCOHOL FIXED SLIDE(S) (PAP STAIN), AND 1 RINSED NEEDLE IN CYTOLYT PERTINENT HISTORY Thyroid nodule, left lobeDESCRIPTIVE DIAGNOSIS FNA thyroid, left lobe: - Benign. Blood and rare benign follicular cells are present, consistent with benign follicular nodule.Signed Verified/Reviewed by JORGITO GIVENS MD 03/19/17 [facility] NAME: ANH EWING Pathology and Laboratory Medicine UNIT#: [id number] LOC: [facility] Slabber: Ban Fong M.D. [id number] ROOM/BED: MeUndies : 55 AGE/SEX: 62/F ORD.Lucy Teague MD END OF REPORT Normal [facility] US THYROID OR NECKon 017 US THYROID OR NECK FINE NEEDLE ASPIRATI ON THYROID, US THYROID OR NECKOrdering Physician: Lucy Santos MD03/14/2017 9:00 AMTHYROID ULTRASOUND WITH ULTRASOUND-GUIDED THYROID FINE-NEEDLEASPIRATION:Cl inical Statement: Thyroid nodule.Comparison: Thyroid ultrasound 11/20/2016.FINDINGS: Initial sonographic images of the left thyroid lobe wereobtained in correlation with the previous exam. There is a largepredominant solid nodule again shown involving the left thyroid lobemeasuring up to 4 cm with multiple small cystic areas.The ultrasound-guided thyroid fine-needle aspiration procedure andpotential risks were discussed with the patient who was agreeable andelected to proceed giving both informed written and verbal consent.The neck was prepped and draped in the usual sterile fashion. Localanesthesia was achieved using 1% lidocaine. Under ultrasound guidance,the left thyroid lobe nodule was aspirated. Three aspirates wereobtained using three separate 25-gauge needles. Images were obtainedwith each pass and saved to PACS for documentation. Slides wereprepared from the obtained aspirates and the needles were rinsed inCytoLyt. A sterile bandage was applied at the puncture site. Thepatient tolerated the procedure well with no immediate complications.IMPRESSION :Technically successful ultrasound-guided fine-needle aspiration of thepredominantly solid left thyroid lobe nodule as described. ---- Electronic Signature on File ----Signed By: Kenyon Aguero [email or web address] nate: 03/14/2017 11:14 AMSigned: 03/14/2017 11:17 AM Reported By: KENYON AGUERO M.D. Signed By: KENYON AGUERO M.D. Normal [facility] Basic Metabolic Panelon 02-14 Anion gap 14 mmol/L Normal 9-17 [facility] Comment on above: Order Comment: CALL doctor L2725 tel. , fax [phone] by Dr Lucy Santos Result Comment: Effe ctive: 02/24/2017Reference Range Modified Calcium 9.3 mg/dL Normal 8.6-10.2 [facility] Comment on above: Order Comment: CALL doctor L2725 tel. , fax [phone] by Dr Lucy Santos Chloride 104 mmol/L Normal 98-107 [facility] Comment on above: Order Comment: CALL doctor L2725 tel. , fax [phone] by Dr Lucy Santos Result Comment: Effe ctive: 02/24/2017Reference Range Modified CO2 27 mmol/L Critically high 17-24 [facility] Comment on above: Order Comment: CALL doctor L2725 tel. , fax [phone] by Dr Lucy Santos Result Comment: Effe ctive: 02/24/2017Reference Range Modified Creatinine 0.88 mg/dL Normal 0.50-0.90 [facility] Comment on above: Order Comment: CALL doctor L2725 tel. , fax [phone] by Dr Lucy Santos eGFR (black) mL/min/{1.73_m2} Normal >60 [facility] Comment on above: Order Comment: CALL doctor L2725 tel. , fax [phone] by Dr Lucy Santos Result Comment: >60 mL/min/1.73m2 EGFR, calc. for ages 18 and older using theMDRD formula (not corrected for weight), is valid for stablerenal function. eGFR (MDRD) mL/min/{1.73_m2} Normal >60 [facility] Comment on above: Order Comment: CALL doctor L2725 tel. , fax [phone] by Dr Lucy Santos Result Comment: >60 mL/min/1.73m2 EGFR, calc. for ages 18 and older using theMDRD formula (not corrected for weight), is valid for stablerenal function. Glucose mass conc 105 mg/dL Normal 74-109 [facility] Comment on above: Order Comment: CALL doctor L2725 tel. , fax [phone] by Dr Lucy Santos Potassium molar conc 4.6 mmol/L Critically high 3.2-4.4 [facility] Comment on above: Order Comment: CALL doctor L2725 tel. , fax [phone] by Dr Lucy Santos Result Comment: Effe ctive: 02/24/2017Reference Range Modified Sodium 145 mmol/L Critically high 132-138 [facility] Comment on above: Order Comment: CALL doctor L2725 tel. , fax [phone] by Dr Lucy Santos Result Comment: Effe ctive: 02/24/2017Reference Range Modified Urea nitrogen 26 mg/dL Critically high 8-23 [facility] Comment on above: Order Comment: CALL doctor L2725 tel. , fax [phone] by Dr Lucy Santos Hemoglobin A1con 02-25-2017 Hemoglobin A1c/Hemoglobin.tota l mass fraction (Bld) 5.9 % Normal 4.8-5.9 [facility] Comment on above: Order Comment: CALL doctor L2725 tel. , fax [phone] by Dr Lucy Santos Lipid Panelon 02-25-2017 Cholesterol 190 mg/dL Normal 0-199 [facility] Comment on above: Order Comment: CALL doctor L2725 tel. , fax [phone] by Dr Lucy Santos Result Comment: ATP III Cholesterol classification is Desirable. HDL Cholesterol 41 mg/dL Normal 40-59 [facility] Comment on above: Order Comment: CALL doctor L2725 tel. , fax [phone] by Dr Lucy Santos Result Comment: ATP III HDL Cholesterol Classification is Desirable.Expected Values:Males: >55 = No Risk 35-55 = Moderate Risk <35 = High RiskFemales: >65 = No Risk 45-65 = Moderate Risk <45 = High RiskNCEP Guidelines: Third Report July 2000>59 = negative risk factor for CHD<40 = major risk factor for CHD LDL Cholesterol 100 mg/dL Normal 0-129 [facility] Comment on above: Order Comment: CALL doctor L2725 tel. , fax [phone] by Dr Lucy Santos Result Comment: ATP III LDL Classification is Near Optimal. Triglyceride 247 mg/dL Critically high 0-200 [facility] Comment on above: Order Comment: CALL doctor L2725 tel. , fax [phone] by Dr Lucy Santos Result Comment: ATP III Triglycerides Classification is High. US THYROID OR NECKon 017 US THYROID OR NECK US THYROID OR NECKOrdering Physician: Betty Magana11/20/2016 7:37 AMTHYROID ULTRASOUNDClinical Statement: Thyroid noduleComparison: Chest CT September 02, 2016FINDINGS: Corresponding with abnormality on recent neck CT is a largedominant predominantly solid mass arising from the left thyroid lobemeasuring 4.2 x 2.4 x 3.2 cm. This mass has a peripheral ring ofhypervascularity and a central area of cystic change or degeneration.Further evaluation with biopsy is recommended.There is an ill-defined isoechoic lobulated nodule within the inferiorright thyroid lobe measuring 8 x 7 x 4 mm. This is probably benign andcan be followed in six months for stability. No additional thyroidnodules are present.The right and left thyroid lobes measure 3.6 x 1.4 x 1.7 cm and 5.0 x2.8 x 3.3 cm respectively. The thyroid isthmus measures 3.3 mm.IMPRESSION:4.2 cm left thyroid lobe mass for which further evaluation withultrasound-guided biopsy is recommended.8 mm right thyroid lobe nodule can be followed in six months forstability ---- Electronic Signature on File ----Signed By: Lindsey [email or web address] nate: 11/20/2016 8:30 AMSigned: 11/20/2016 8:35 AM Reported By: RADHA CORDON M.D. Signed By: RADHA CORDON M.D. [facility] CARD.Echoon 09-21-2016 CARD.Echo [Embedded Image Not Available][facility] Patient Name: ANH EWING [id number] [facility] Date of : [address], [place] [address] Unit Number: [id number] Number: [id number] Patient Status: REG CLIAttending Doctor: Lucy Santos MDService Date: 09/21/161824EchocardiogramStudy Date: 09/19/16llergies:Coded Allergies:SULFA (SULFONAMIDE ANTIBIOTICS) (Mild, 10/10/11)Summary:[facility] [place], [place] [address]Teczoegdrou Cardiac DiagnosticsName: ANH EWING Study Date: 09/19/2016 09:04 AM BP: 153/75 mmHgMRN: [id number] Patient Location: op HR: 56DOB: 1955 Gender: Female Height: 64 inAge: 61 yrs Weight: 275 lbReason For Study: DYSPNEABSA: 2.2 [id number]: Dyspnea or SOB,Hypertension,Lung Disease,Edema,Light-head ed,SyncopeInterpretation SummaryLeft ventricular systolic function is normal.LVEF 55-60 % with normal diastolic function.The right ventricle is normal in size and function.There is trace mitral regurgitation.There is trace tricuspid regurgitation.Right ventricular systolic pressure is normal.The aortic valve is normal in structure and function.Mild pulmonic valvular regurgitation.There is no pericardial effusion.Left VentricleThe left ventricle is normal in size. There is normal left ventricular wall thickness.Left ventricular systolic function is normal. LVEF 55-60 % with normal diastolic function.The left ventricular wall motion is normal.Right VentricleThe right ventricle is normal in size and function.AtriaThe left atrial size is normal. Right atrial size is normal.Mitral ValveThe mitral valve is normal. There is no mitral valve stenosis. There is trace mitralregurgitation.Tric uspid ValveThe tricuspid valve is normal. There is no tricuspid stenosis. There is trace tricuspidregurgitation. Right ventricular systolic pressure is normal.Aortic ValveThe aortic valve is normal in structure and function. The aortic valve is trileaflet. Nohemodynamically significant valvular aortic stenosis. No aortic regurgitation is present.Pulmonic ValveThe pulmonic valve is normal in structure and function. There is no pulmonic valvularstenosis. Mild pulmonic valvular regurgitation.Great VesselsThe aortic root is normal size. The pulmonary artery is normal size. IVC not wellvisualised.Pericardi um/PleuralThere is no pericardial effusion.MMode/2D Measurements and CalculationsIVSd: 0.88 cmIVSs: 1.6 cmLVIDd: 5.8 cmLVIDs: 3.2 cmLVPWd: 1.0 cmLVPWs: 1.5 cmFS: 44.7 %EF(Teich): 75.2 %% IVS thick: 83.3 % ---------LVAd sax epi: 36.3 cm2LV mass(AL)d: 190.5 gramsAo root diam: 2.9 cmAo root area: 6.4 cm2ACS: 1.9 cmLA dimension: 3.9 cmLVOT diam: 2.1 cmEF(MOD-sp4): 53.6 % ---------LVLd apical: 8.6 cmLVAd sax PM: 15.9 if6Ijuz MeasurementsAortic R-R: 1.2 secAortic HR: 52.0 BPMDoppler Measurements and CalculationsMV E max pacheco: 109.0 cm/secMV A max pacheco: 87.8 cm/secMV E/A: 1.2MV max P.1 mmHgMV mean P.7 mmHgMVA(VTI): 2.4 cm2MV P1/2t: 102.1 msecMVA(P1/2t): 2.2 cm2MV dec time: 0.24 secAo V2 max: 118.1 cm/secAo max P.6 mmHgAo mean P.2 mmHgAo V2 VTI: 30.5 cmAVA(I,D): 3.2 cm2AVA(V,D): 3.3 cm2 LV V1 max: 108.0 cm/secLV V1 mean: 76.7 cm/secLV V1 VTI: 27.0 cmCO(LVOT): 5.0 l/minPA max P.7 mmHgPI end-d pacheco: 71.9 cm/sec TR max pacheco: 169.7 cm/secTR max P.5 mmHgRVSP(TR): 21.5 mmHgRAP systole: 10.0 mmHg Reviewed/Radha ified By:NICOLAS RANGEL 09/21/2016 06:21 PMOrdering Physician: Clint Physician: Irishformed By: 14DisclaimerThis dictation was created using voice recognition software.Phonetic and/or minor grammatical errors may exist.eSign Date and TimePatel,Nicolas Portillo MD [facility] Echocardiogram This is a preliminar y report only, as the practitioner review and authentication has not occurred. [facility] No Panel Information [facility] Vital Signs Date Time Vital Sign Value Performing Clinician Kingsleyi alexandra 04-25-2023 10:33-0500 Body height 164.2 cm Aric Carrillo MD Work Phone: [facility] 04-25-2023 10:33-0500 Body temperature 97.11 [degF] Aric Carrillo MD Work Phone: [facility] 04-25-2023 10:33-0500 Body weight 122.24 kg Aric Carrillo MD Work Phone: [facility] 04-25-2023 10:33-0500 Diastolic blood pressure 70 mm[Hg] Aric Carrillo MD Work Phone: [facility] [facility] 04-25-2023 10:33-0500 Heart rate 60 /min Aric Carrillo MD Work Phone: [facility] 04-25-2023 10:33-0500 SaO2% (BldA) [Mass fraction] 96 % Aric Carrillo MD Work Phone: [facility] 04-25-2023 10:33-0500 Systolic blood pressure 105 mm[Hg] Aric Carrillo MD Work Phone: [facility] Encounters Encounter Date Encounter Type Care Provider Facility Start: 05-28-2023 End: 05-28-2023 ambulatory MONI VELÁSQUEZ Facility:[facility] Start: 05-28-2023 End: 05-28-2023 Patient encounter procedure Kiran Gifford MD Work Phone: Ophthalmology Comment on above: Status post corneal transplant (Primary Dx); Corneal scar, right eye; Pseudophakia Start: 04-25-2023 End: 04-25-2023 ambulatory MONI VELÁSQUEZ Facility:[facility] Start: 04-25-2023 End: 04-25-2023 ambulatory Aric Carrillo MD Work Phone: Hematology/Oncology Comment on above: 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) (Primary Dx) Start: 04-25-2023 End: 04-25-2023 Patient encounter procedure Aric Carrillo MD Work Phone: [facility] Start: 04-02-2023 End: 04-02-2023 ambulatory KIRAN GIFFORD Facility:[facility] Start: 03-12-2023 End: 03-12-2023 ambulatory KIRAN GIFFORD Facility:[facility] Start: 03-05-2023 End: 03-05-2023 ambulatory KIRAN GIFFORD Facility:[facility] Start: 03-05-2023 End: 03-05-2023 Patient encounter procedure Kiran Gifford MD Work Phone: Ophthalmology Comment on above: Status post corneal transplant (Primary Dx) Start: 03-01-2023 Patient encounter procedure Kiran Gifford MD Work Phone: [facility] Comment on above: Status post corneal transplant (Primary Dx) Start: 01-29-2023 End: 01-29-2023 ambulatory MONI VELÁSQUEZ Facility:[facility] Start: 01-22-2023 End: 01-22-2023 ambulatory KIRAN GIFFORD Facility:[facility] Start: 01-22-2023 End: 01-22-2023 Patient encounter procedure Kiran Gifford MD Work Phone: Ophthalmology Comment on above: Corneal edema, secon barby, right (Primary Dx); Corneal scar, right eye; Pseudophakia Start: 01-16-2023 Telephone encounter Kiran beth MD Work Phone: [facility] Comment on above: Patient Question Start: 01-01-2023 End: 01-01-2023 ambulatory KIRAN GIFFORD Facility:[facility] Start: 01-01-2023 End: 01-01-2023 Patient encounter procedure Kiran Gifford MD Work Phone: Ophthalmology Comment on above: Corneal edema, secon barby, right (Primary Dx); Corneal scar, right eye; Pseudophakia Start: 12-27-2022 Telephone encounter Kiran beth MD Work Phone: Ophthalmology Start: 12-11-2022 End: 12-11-2022 ambulatory EFEWONGBE B OLEGHE Facility:[facility] Start: 12-04-2022 End: 12-04-2022 ambulatory EFEWUNIVERSITY PARKBE B OLEE Facility:[facility] Start: 11-22-2022 Telephone encounter Kiran beth MD Work Phone: Ophthalmology Comment on above: Appointment Start: 03-14-2017 Ambulatory Lucy Santos Facilit y:[facility] Start: 03-14-2017 Ambulatory Lucy Santos Facilit y:[facility] Start: 11-20-2016 Ambulatory Lucy L. Santos Facilit y:[facility] Start: 09-19-2016 Ambulatory Lucy L. Santos Facilit y:[facility] Procedures Date Procedure Procedure Detail Performing Clinician Start: 05-28-2023 Computerized ophthal clay imaging retina Kiran Gifford MD Work Phone: Start: 01-22-2023 Cmptr ophthalmic dx img ant [...] Detail Author Start: 10-09-2027 Urine microalbumin profile [facility] Start: 04-25-2024 BP Controlled (<130/80) BP Controlle d (<130/80) [facility] Start: 03-17-2023 Advance Directive Discussion Advance Directive Discussion [facility] Start: 03-17-2023 [facility] Start: 11-15-2022 Covid-19 Vaccine ( season) Covid-19 Vaccine ( season) [facility] Start: 11-15-2022 Influenza vaccination [facility] Start: 10-08-2022 Lipid 1996 panel - S michael or Plasma Lipid Screening [facility] Start: 10-08-2022 Lipid panel Lipid Screening [facility] Start: 10-08-2022 LIPID SCREEN LIPID SCREEN [facility] Start: 03-17-2022 ADVANCE DIRECTIVE DISCUSSION ADVANCE DIRECTIVE DISCUSSION [facility] Start: 03-17-2022 DEPRESSION ASSESSMENT DEPRESSION [facility] Start: 01-31-2022 Pneumococcal Vaccine : 65+ (2 - PPSV23 or PCV20) Pneumococcal Vaccine: 65+ (2 - PPSV23 or PCV20) [facility] Start: 03-31-2021 DIABETES SCREEN [facility] Start: 03-31-2021 Diabetes Screening Diabetes Screenin g [facility] Start: 03-28-2021 Pneumococcal Vaccine : 65+ (2 of 2 - PPSV23 or PCV20) Pneumococcal Vaccine: 65+ (2 of 2 - PPSV23 or PCV20) [facility] Start: 05-16-2020 Colonoscopy Colonoscopy [facility] Start: 05-16-2020 Colorectal Cancer Screening Colorectal Cancer Screening [facility] Start: 05-16-2020 Screening for malign ant neoplasm of colon [facility] Start: 01-29-2020 BONE DENSITY BONE DENSITY [facility] Start: 01-29-2020 Bone Density Screening Bone Density Screening [facility] Start: 01-29-2020 Pneumococcal Vaccine : 65+ (1 - PCV) Pneumococcal Vaccine: 65+ (1 - PCV) [facility] Start: 01-29-2020 PNEUMOCOCCAL: 65+ (1 - PCV) PNEUMOCOCCAL: 65+ (1 - PCV) [facility] Start: 01-29-2020 Screening for osteoporosis Bone Dens ity Screening [facility] Start: 10-06-2019 Annual PCP Team Kitchen Stewardess armando Disease Visit Annual PCP Team Chronic Disease Visit [facility] Start: 10-08-2018 BP Controlled (<130/80) BP Controlle d (<130/80) [facility] Start: 06-26-2018 Mammography [facility] Start: 06-26-2018 Screening for malign ant neoplasm of breast Mammogram Screening [facility] Start: 2015 RSV Vaccine (1 - 1-d ose 60+ series) RSV Vaccine (1 - 1-dose 60+ series) [facility] Start: 2005 SHINGRIX VACCINE (1 of 2) SHINGRIX V ACCINE (1 of 2) [facility] Start: 01-29-2000 COLOGUARD (FIT-DNA) COLOGUARD (FIT-D NA) [facility] Start: 01-29-2000 Colonoscopy COLONOSCOPY [facility] Start: 01-29-2000 COLORECTAL CANCER SCREENING COLORECTAL CANCER SCREENING [facility] Start: 01-29-[address] COLONOGRAPHY [facility] Start: 01-29-2000 FECAL OCCULT BLOOD FECAL OCCULT BLOO D [facility] Start: 01-29-2000 Screening for malign ant neoplasm of colon [facility] Start: 01-29-2000 SIGMOIDOSCOPY SIGMOIDOSCOPY [facility] Start: 1974 Shingrix Vaccine (1 of 2) Shingrix V accine (1 of 2) [facility] Start: 1955 COVID-19 VACCINE (#1) COVID-19 VACCI NE (#1) [facility] Immunizations Immunization Date Immunization Notes Care Provider Chaparro sims 04-07-2018 influenza virus vacc ine, unspecified formulation Kiran Gifford MD Work Phone: [facility] Payers Date Payer Category Payer Medicare [employer] MEDICARE [employer] MEDICARE PPO [id number] 2020-Present [phone] [id number] [place] [address] PPO [id number] 2020 Medicare [id number] 2015 Unknown [id number] Social History Date Type Detail Facility Start: 06-06-2017 End: 12-04-2022 Tobacco smoking status NHIS Never smoked tobacco [facility] Start: 06-06-2017 End: 12-04-2022 Tobacco use and exposure Smokeless tobacco non-user [facility] Start: 10-05-2018 End: 05-28-2023 Alcohol intake Current non-drinker of alcohol (finding) [facility] Start: 10-05-2018 End: 01-29-2023 History of Social function [facility] Start: 10-05-2018 End: 01-29-2023 Tobacco use panel [facility] Adult Depression Scr eening Assessment 0 [facility] Start: 1955 Sex Assigned At Not on file [facility] Medical Equipment Procedure Code Equipment Code Equipment Origin al Text Equipment Identifier Dates Cornea Tissue Pre-Loaded Dmek - [id number] Start: 02-28-2023 Gas [employer] System [id number] - [id number] Start: 02-28-2023 Clinical Notes 11-22-2022 to 05-28-2023 Kiran Gifford MD - 05/28/2023 11:21 AM EDTAAric mcpherson MD - 04/25/2023 10:39 AM ESTPatient InstructionsKiran Gifford MD - 03/05/2023 11:11 AM ESTPatient Instructions Note Date & Type Note Facility 05-28-2023 Note HNO ID: [id number] Author: KIRAN GIFFORD MD Service: ? Author Type: Physician Type: Progress Notes Filed: 05/28/2023 11:38 Note Text: Assessment and Plan 1. Corneal [...] 2020 with symfony lenses both eyes Plan: -cornea looks great however vision still limited, likely 2/2 corneal scar -prednisolone once a day right eye -precautions -options: glasses, Rigid gas permeable lens, penetrating keratoplasty (PK) right eye [last resort] -would like to see Dr. Saul to discuss -back to me as needed I have confirmed and edited as necessary [...] of its relevant components. Kiran Gifford MD [facility] 05-28-2023 History of Presen t illness Narrative Assessment [...] 2020 with symfony lenses both eyes Plan: -cornea looks great however vision still limited, likely 2/2 corneal scar -prednisolone once a day right eye -precautions -options: glasses, Rigid gas permeable lens, penetrating keratoplasty (PK) right eye [last resort] -would like to see Dr. Saul to discuss -back to me as needed I have confirmed and edited as necessary [...] Kiran Gifford MD documented in this encounter [facility] 04-25-2023 Note HNO ID: [id number] Author: ARIC CARRILLO MD Service: ? Author [...] not taking: Reported on 04/25/2023) sodium chloride (RODRIGUE 128) 5 % ophthalmic ointment Use 1 [...] of 45 minute (more content not included)... [facility] 04-25-2023 History of Presen t illness Narrative [...] not taking: Reported on 04/25/2023) sodium chloride (RODRIGUE 128) 5 % ophthalmic ointment Use 1 [...] which included preparing to see the patient, [id number] patient care, completing clinical documentation, obtaining and/or reviewing separately obtained history, counseling and educating the patient/family/caregiver, communicating with other HCPs (not separately reported), independently interpreting results (not separately reported), and communicating results to the patient/family/caregiver. ' Electronically Signed: Aric Carrillo MD April 25, 2023 10:39 AM documented in this encounter [facility] 04-02-2023 Note HNO ID: [id number] Author: KIRAN GIFFORD MD Service: ? Author [...] of its relevant components. Kiran Gifford MD [facility] 03-12-2023 Note HNO ID: [id number] Author: Kiran Gifford MD Service: ? Author [...] others. I have seen and examined Anh Hernandez Gildardo. I have discussed the case and the management of this patient's care with the Resident/Fellow, if applicable. I also have reviewed and agree with the assessment and plan as stated above and agree with all of its relevant components. Kiran Gifford MD [facility] 03-05-2023 Note HNO ID: [id number] Author: Kiran Gifford MD Service: ? Author [...] of its relevant components. Kiran Gifford MD [facility] 03-05-2023 Instructions Kiran Gifford MD - 03/05/2023 11:12 AM EST -prednisolone 4x daily right eye -vigamox four times a day right eye -lie flat on back every two hours -precautions documented in this encounter [facility] 03-05-2023 History of Presen t illness [...] Kiran Gifford MD documented in this encounter [facility] 03-01-2023 Note HNO ID: [id number] Author: Kiran Gifford MD Service: ? Author [...] of its relevant components. Kiran Gifford MD [facility] 03-01-2023 Instructions Kiran Gifford MD - 03/01/2023 1:32 PM EST Images from the original note were not included. documented in this encounter [facility] 03-01-2023 History of Presen t illness [...] Kiran Gifford MD documented in this encounter [facility] 02-28-2023 History of Past i llness Narrative Problem Noted Date Diagnosed Date Resolved Date Corneal edema, secondary, right 02/28/2023 02/28/2023 documented as of this encounter (statuses as of 03/01/2023) [facility]12-15-2023 History of Past illness Narrative* Problem Noted Date Diagnosed Date Resolved Date Corneal edema, secondary, right 02/28/2023 02/28/2023 documented as of this encounter (statuses as of 03/06/2023) [facility]12-15-2023 History of Past illness Narrative* Problem Noted Date Diagnosed Date Resolved Date Corneal edema, secondary, right 02/28/2023 02/28/2023 documented as of this encounter (statuses as of 04/25/2023) [facility]12-15-2023 History of Past illness Narrative* Problem Noted Date Diagnosed Date Resolved Date Corneal edema, secondary, right 02/28/2023 02/28/2023 documented as of this encounter (statuses as of 05/28/2023) [facility]11-08-2023 NoteHNO ID: [id number] Author: Kiran Gifford MD Service: ? Author [...] (was not helping) -can stop zirgan and rodrigue ointment since limited help -follow-up 2-4 weeks [...] all of its relevant components. Kiran Gifford, [facility]11-08-2023 Instructions* Patient Instructions* Kiran Gifford MD - 01/22/2023 9:36 AM EST -Tre White (surgical scheduling): [phone] [facility] History of Present illness Narrative* Kiran [...] (was not helping) -can stop zirgan and rodrigue ointment since limited help -follow-up 2-4 weeks [...] components. Kiran Gifford MD [facility] Miscellaneous Notes* Telephone Encounter - Cherise West RN - 01/20/2023 10:06 AM EST Called and relayed Dr. Gifford's message to the patient. She voiced understanding and appreciation for name of what is causing her corneal swelling. Cherise West RN January 20, 2023 10:08 AM * Telephone Encounter - Kiran Gifford MD - 01/20/2023 8:24 AM EST Unlikfrankie. These may causse dry eye by increasing water excretion from the body, but unlikley wsweling. 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 Gifford to advise. Cherise West RN January 16, 2023 4:37 PM * Telephone Encounter - Luciana Valencia OA - 01/16/2023 3:45 PM EDT Spoke with the patient she stated that she is currently taking hydralazine and hydrochlorothiazide which she is under the care of [facility] to control her hypertension. Patient states she started these medications shortly before she started to experience the eye pain in the right eye. Patient spoke with the [facility] and they advised that she [...] asking for a phone call back at [phone]. Review and advise. [facility]23 NoteHNO ID: [id number] Author: Kiran Gifford MD Service: ? Author [...] right eye (helps! Ointment effect vs viral) -rodrigue ointment at bedtime right eye -follow-up 2 [...] all of its relevant components. Kiran Gifford, [facility]10-18-2023 History of Present illness Narrative* Kiran [...] right eye (helps! Ointment effect vs viral) -rodrigue ointment at bedtime right eye -follow-up 2 [...] components. Kiran Gifford MD documented in [facility]Prem[facility]10-13-2023 Miscellaneous Notes* Telephone Encounter - Arieltheresa HeshamAbbi - 12/27/2022 10:59 AM EDT Ptient called wanting to let you know she is having carpel tunnel surgery on 01/07 and didn't know if it would affect her eyes.Abbi Mehran Pss documented in this encounterPrem[facility]09-27-2023 NoteHNO ID: [id number] Author: Kiran Gifford MD Service: ? Author [...] a day -zirgan 5x daily right eye -rodrigue ointment at bedtime right eye -follow-up 2 [...] all of its relevant components. Kiran Gifford, [facility]09-20-2023 NoteHNO ID: [id number] Author: Kiran Gifford MD Service: ? Author [...] x 2 week then twice a day -rodrigue ointment at bedtime right eye -stop valtrex -follow-up 3-4 weeks / sooner as needed. If not better in 2-3 months, to consider Descemet's membrane endothelial keratoplasty (DMEK) right eye -back to Dr. Saul afterwards I have confirmed and edited as necessary the relevant ophthalmic history, ROS, and the neuro exam findings as obtained by others. I have seen and examined Anh Hernandez Gildardo. I have discussed the case and the management of this patient's care with the Resident/Fellow, if applicable. I also have reviewed and agree with the assessment and plan as stated above and agree with all of its relevant components. Kiran Gifford MD December 04, 2022 9:09 [facility]09-08-2023 Miscellaneous Notes* Telephone Encounter - Luciana Valencia OA - 11/22/2022 3:45 PM EDT Spoke with Randee brar at the [facility] regarding this patient's referral to Dr. Gifford. She stated that the patient is scheduled to see one of their providers on Friday11/25/2022 for a follow up. Patient is scheduled to then follow up with Dr. Gifford for a consult on 12/04/2022. This patient has also been added to the wait list for a cancellation. 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 documented in this encounter [facility] note* Diagnosis 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 documented in this encounter [facility] note* Diagnosis 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 DATE CREATED AUTHOR AUTHOR'S ORGANIZ ATION 09/08/2017 [facility] DATE CREATED AUTHOR AUTHOR'S ORGANIZ ATION 05/29/2023 [facility] Source Comments (unrecognize d section and content) In the event this informatio n is protected by the Federal Confidentiality of Alcohol and Drug Abuse Patient Records regulations: The Federal rules restrict any use of the information to criminally investigate or prosecute any alcohol or drug abuse patient.[facility] the event this information is protected by the Federal Confidentiality of Alcohol and Drug Abuse Patient Records regulations: The Federal rules restrict any use of the information to criminally investigate or prosecute any alcohol or drug abuse patient.[facility] the event this information is protected by the Federal Confidentiality of Alcohol and Drug Abuse Patient Records regulations: The Federal rules restrict any use of the information to criminally investigate or prosecute any alcohol or drug abuse patient.[facility] North[facility] the event this information is protected by the Federal Confidentiality of Alcohol and Drug Abuse Patient Records regulations: The Federal rules restrict any use of the information to criminally investigate or prosecute any alcohol or drug abuse patient.[facility] North[facility] the event this information is protected by the Federal Confidentiality of Alcohol and Drug Abuse Patient Records regulations: The Federal rules restrict any use of the information to criminally investigate or prosecute any alcohol or drug abuse patient.[facility] NorthIn the event this information is protected by the Federal Confidentiality of Alcohol and Drug Abuse Patient Records regulations: The Federal rules restrict any use of the information to criminally investigate or prosecute any alcohol or drug abuse patient.[facility] NorthIn the event this information is protected by the Federal Confidentiality of Alcohol and Drug Abuse Patient Records regulations: The Federal rules restrict any use of the information to criminally investigate or prosecute any alcohol or drug abuse patient.[facility] NorthIn the event this information is protected by the Federal Confidentiality of Alcohol and Drug Abuse Patient Records regulations: The Federal rules restrict any use of the information to criminally investigate or prosecute any alcohol or drug abuse patient.[facility] NorthIn the event this information is protected by the Federal Confidentiality of Alcohol and Drug Abuse Patient Records regulations: The Federal rules restrict any use of the information to criminally investigate or prosecute any alcohol or drug abuse patient.[facility] Reason for Visit (unrecogniz ed section and content) Reason Comments Appointment Reason Comments Corneal Edema Follow Up Reason Comments Patient Question Reason Comments Post-op (Ophthalmology) Right Eye Reason Comments New Patient Care Teams (unrecognized sec tion and content) [employer] Relationship Specialty Start Date End Date Moni Velásquez MD [address] [place] [address] PCP - General Internal Medicine 07/04/20 [employer] Relationship Specialty Start Date End Date Moni Velásquez MD [address] [place] [address] PCP - General Internal Medicine 07/04/20 [employer] Relationship Specialty Start Date End Date [facility]i Velásquez [facility] [address] [facility] [address] [place] [address] PCP - General Internal Medicine 07/04/20 [employer] Relationship Specialty Start Date End Date Moni Velásquez MD [address] [place] [address] PCP - General Internal Medicine 07/04/20 [employer] Relationship Specialty Start Date End Date Moni Velásquez MD [address] [address] [place] [address] PCP - General Internal Medicine 07/04/20 [employer] [place] [employer] Relationship Specialty Start Date End Date Moni Velásquez MD [address] [place] [address] PCP - General Internal Medicine 07/04/20 [place] [employer] Relationship Specialty Start Date End Date Moni Velásquez MD [address] [facility] [address] [place] [phone] PCP - General Internal Medicine 07/04/20 [employer] [place] [employer] Relationship Specialty Start Date End Date Moni Velásquez MD [address] [facility] [address] [place] [phone] PCP - General Internal Medicine 07/04/20 FOR [...] BE BASED ON THE PRIMARY CLINICAL RECORDS. [facility] [employer] [facility]. provides no warranty or guarantee of the accuracy or completeness of information in this document.
== END 2024-01-10 18:28 | disposition home or self-care (01) ==
PROVIDERS: Emergency Provider Emergency Medicine; PCP Internal Medicine; Visit Provider Emergency Medicine
DX: S06.0X0A Concussion without loss of consciousness, initial encounter (principal); E66.01 Morbid (severe) obesity due to excess calories; Z68.42 Body mass index [BMI] 45.0-49.9, adult; N18.30 Chronic kidney disease, stage 3 unspecified; V00.831A Fall from motorized mobility scooter, initial encounter; Y92.828 Other wilderness area as the place of occurrence of the external cause; I12.9 Hypertensive chronic kidney disease with stage 1 through stage 4 chronic kidney disease, or unspecified chronic kidney disease; S10.93XA Contusion of unspecified part of neck, initial encounter; E78.2 Mixed hyperlipidemia; J45.909 Unspecified asthma, uncomplicated; K21.9 Gastro-esophageal reflux disease without esophagitis; Z79.01 Long term (current) use of anticoagulants; Z79.899 Other long term (current) drug therapy
CPT/HCPCS: 70450; 72125; 99282

== ENCOUNTER → 2024-01-12 | Outpatient (CLI) | payer MEDICARE, SELFPAY ==
--- OUTSIDE RECORDS SUMMARY | 2024-01-12 13:22 | XMS RPT_ITS | CCD ---
Author Organization [facility] Inform ion Partnership [facility] Care Team Providers Care Plate Inspector Name Role Phone Santos, Lucy L. Unavailable Unavailable Santos, Lucy L. Unavailable Unavailable Santos, Lucy L. Unavailable Unavailable Santos, Lucy L. Unavailable Unavailable Santos, Lucy L. Unavailable Unavailable Santos, Lucy L. Unavailable Unavailable Santos, Lucy L. Unavailable Unavailable Santos, Lucy L. Unavailable Unavailable Moni Velásquez MD Primary Care Provider KIRAN GIFFORD Attending Unavailable OLEGHE, EFEWONGBE B [...] Translations: [SULFA (SULFONAMIDE ANTIBIOTICS)] Drug Intolerance 8 [facility] (9 sources) amLODIPine; Translations: [AMLODIPINE] Drug Allergy 3 [facility] (9 sources) Hydroxychloroquin e; Translations: [HYDROXYCHLOROQUI NE] [facility] Medications Current Medications Medication Drug Class(es) Dates [...] Active Comment on above: Take by mouth. [id number] 200 actuat albuterol 0.09 mg/actuat metered dose [...] on above: Take 2 tablets by mo [facility] once daily. betamethasone 0.5 mg/ml topical cream [...] belen th daily at bedtime. sodium chloride 0.292222 meq/mg ophthalmic ointment (8 sources) Start : [...] Test Name Value Interpretation Reference [facility] (SP) Office (HEMAWS) -------- ANH EWING ([id number]) 1955 F CHT Date Time Provider Department [...] than HPI (more content not included)... [facility] ANES POSTPROC EVALon 023 ANES POSTPROC EVAL HNO ID: [id number] Author: Suzanne Gordon MD Service: ? Author Type: Anesthesiologist Type: Anesthesia Postprocedure Evaluation Filed: 02/28/2023 4:04 PM Note Text: POST ANESTHESIA EVALUATION NOTE : 1955 Procedure Summary Date: 02/28/23 Room / Location: [address] Anesthesia Start: 1408 Anesthesia Stop: 1459 [...] with this procedure. Documented by Kenyon Calzada APRN.SKILLS AUDITOR 02/28/2023 2:59 PM EST SIGNATURE: Suzanne Gordon MD PATIENT NAME: Anh Ewing DATE: February 28, 2023 TIME: 4:04 PM CSN: [id number] [facility] ANES PRE-OPon 02-28-2023 ANES PRE-OP HNO ID: [id number] Author: Brian Galan MD Service: ? Author Type: Anesthesiologist Type: Anesthesia Preprocedure Evaluation Filed: 02/28/2023 2:46 PM Note Text: ANESTHESIOLOGY DAY OF SURGERY NOTE : 1955 Procedure Information Anesthesia Start Date/Time: 02/28/231407 Procedure: KERATOPLASTY ENDOTHELIAL DESCEMET MEMBRANE (DMEK) (Right: Eye) Location: [place] [address] / [facility] Surgeons: Kiran Gifford MD Estimated [...] and consent discussed: yes. Patient / Responsible Alliance Party agrees to proceed: yes Patient / Surrogate [...] February 28, 2023 TIME: 2:45 PM CSN: [id number] [facility] Fungus Spec Culton 3 Fungus identified Cx Nom (Unsp spec) CULTURE, FUNGAL: No Fungus isolated after 28 days [facility] Comment on above: Performed By: #### 5 80-1 ####[facility]CL[facility] [id number] [address] OF [facility] OPERATIVE NOon 02-28-2023 OPERATIVE NO HNO ID: [id number] Author: Kiran Gifford MD Service: Ophthalmology Author Type: Physician Type: Operative Report Filed: 02/28/2023 3:02 PM Note Text: OPERATIVE/PROCEDURE REPORT OPHTHAMOLOGY LOG ID: [id number] SURGERY/PROCEDURE DATE: 02/28/2023 INCISION/PROCEDURE START TIME: 2:25 PM INCISION CLOSE/PROCEDURE END TIME: 2:51 PM SURGEON(S)/PROCEDURALIST (S) AND DAY HABILITATION SUPERVISOR(S): Surgeon(s) and Role: * Kiran Gifford MD [...] surface was then swept, now in a mskwyb-ak-pysaounii fashion to evacuate any interface fluid from [...] Implant Name Type Inv. Item Serial No. Non Ferrous Material Handler Lot No. LRB No. Used Action Model No. CORNEA TISSUE PRE-LOADED DMEK - [id number] Cornea CORNEA TISSUE PRE-LOADED DMEK [id number] [facility] Right 1 Implanted CORNEA TISSUE FEE GAS ISPAN CONSTELLATION INTRAOCULAR VISION SYSTEM SF6 125GM - [id number] Implant GAS ISPAN CONSTELLATION INTRAOCULAR VISION SYSTEM SF6 125GM [facility] [id number] Right 1 Implanted [id number] Ocular Co-Morbidities: No Intra-operative Complications None I/primary surgeon/proceduralist performed the entire procedure. SIGNATURE: Kiran Gifford MD PATIENT NAME: Anh Ewing DATE: February 28, 2023 TIME: 3:01 PM PAGER/CONTACT #: [phone] [facility] SURGICAL PATHOLOGYon 023 CASE REPORT [facility] Comment on above: Order Comment: Speci men Type: TISSUE SPECIMENOrdering Facility: [facility] Address: [address] [place] [address] Result Comment: Surg ical Pathology Report Case: [id number] Authorizing Provider: Kiran Gifford MD Collected: 02/28/2023 02:42 PM Ordering Location: Ophthalmology Received: 02/28/2023 10:40 PM Pathologist: Miranda Roach MD Specimen: CORNEA RIGHT Performed By: #### S ####[facility] [id number] [place] [address] [place] CLINICAL HISTORY corneal swelling - herpetic? surgical trauma? [facility] Comment on above: Order Comment: Speci men Type: TISSUE SPECIMENOrdering Facility: [facility] Address: [address] [place] [address] Performed By: #### S ####[facility] [id number] [place] [address] [place] DIAGNOSIS COMMENT PAS highlights Desce met membrane. [facility] Comment on above: Order Comment: Speci men Type: TISSUE SPECIMENOrdering Facility: [facility] Address: [address] [place] [address] Performed By: #### S ####[facility] [id number] [place] [address] [place] FINAL DIAGNOSIS [facility] Comment on above: Order Comment: Speci men Type: TISSUE SPECIMENOrdering Facility: [facility] Address: [address] [place] [address] Result Comment: Eye, right cornea, keratoplasty - Descemet membrane with endothelial cell loss. Performed By: #### S ####[facility] LABIA [id number] [address] [place] FINAL PERFORMING LAB [facility] Comment on above: Order Comment: Specvasyl carreno Type: TISSUE SPECIMENOrdering Facility: [facility] Address: [address] [place] [address] Result Comment: Diag nostic interpretation performed at [facility], [address] [place] [address] CLIA# [id number] Pet Ambassador: Royal Paz M.D. Performed By: #### S ####[facility] LABIA [id number] [address] GROSS DESCRIPTION A. CORNEA RIGHT Normal Cl [facility] Comment on above: Order Comment: Speci wai Type: TISSUE SPECIMENOrdering Facility: [facility] Address: [address] [place] [address] Result Comment: Rece ived in formalin designated cornea right is an irregular transparent segment of tissue which measures 0.7 x 0.4 by less than 0.1 cm. The specimen is not sectioned and is totally submitted in 1 cassette. BF March 03, 2023 9:10 AM Gross examination performed at [facility], [address] [place] [address] Performed By: #### S ####[facility] LABIA [id number] [address] OF [place] Andre 01-16-2023 CNPN Telephone (FAMPWS) -------- ANH EWING ([id number]) 1955 F [facility] Date Time Provider Department 01/16/23 KIRAN GIFFORD FAMPWS During your visit today, we recorded the following information about you: Goldie Low 01/16/2023 10:27 AM Signed Patient verified by name and . She has some questions and is asking for a phone call back at [phone]. Review and advise. Luciana Valencia OA 01/16/2023 3:56 PM Signed Spoke with the patient she stated that she is currently taking hydralazine and hydrochlorothiazide which she is under the care of [facility] to control her hypertension. Patient states she started these medications shortly before she started to experience the eye pain in the right eye. Patient spoke with the [facility] and they advised that she [...] Fully Assessed Reason for Visit: Patient Question [3907] Prescriptions as of 01/20/2023 - ganciclovir (ZIRGAN) [...] GEMTESA 75 mg tablet - sodium chloride (RODRIGEU 128) 5 % ophthalmic ointment Use 1 [...] 04/07/2018 Encounter Status:Closed by HELADIOCHERISE on 01/20/23 [facility] 12-27-2022 CNPN Telephone (OPHWOO) -------- ANH EWING ([id number]) 1955 F T Date Time Provider Department [...] Encounter Status:Closed by ABBI CHARLTON on 12/27/22 [facility] 11-22-2022 [facility] Telephone (OPHWOO) -------- ANH WEING ([id number]) 1955 F [facility] Date Time Provider Department 11/22/22 KIRAN GIFFORD OPHCORKY During your visit today, we recorded the following information about you: Luciana Valencia OA 11/22/2022 3:51 PM Signed Spoke with Randee brar at the [facility] regarding this patient's referral to [...] Status:Closed by LUCIANA VALENCIA on 11/22/[address] [facility] [address] ABDOMEN W/O CONon 12-29-[address] [...] File ----Signed By: Chadd Julian MD [email or web address] tated: 03/14/2017 9:08 AMSigned: 03/14/2017 9:10 AM Reported By: CHADD JULIAN M.D. Signed By: CHADD JULIAN M.D. [facility] [place] FINE NEEDLE ASPIRATION THYRO IDon 03-14-2017 FINE [...] AGUERO M.D. Signed By: KENYON AGUERO M.D. [facility] Rachna Brown 03-14-2017 NONGYN ---- Maryam ent: [...] nodule.Signed Verified/Reviewed by JORGITO GIVENS MD 03/19/17 [facility] NAME: ANH EWING Pathology and Laboratory Medicine UNIT#: [id number] LOC: [facility] Final Canoe Inspector: Ban Fong M.D. [id number] ROOM/BED: [place] : 55 AGE/SEX: 62/F ORD.Lucy Teague MD END OF REPORT Normal [facility] [place] US THYROID OR NECKon 017 US THYROID [...] M.D. Signed By: KENYON AGUERO M.D. Normal [facility] [place] Basic Metabolic Panelon 02-14 Anion gap 14 mmol/L Normal 9-17 [facility] Comment on above: Order Comment: CALL doctor [id number] tel. , fax [phone] by Dr Lucy Santos Result Comment: Effe ctive: 02/24/2017Reference Range Modified Calcium 9.3 mg/dL Normal 8.6-10.2 [facility] Comment on above: Order Comment: CALL doctor [id number] tel. , fax [phone] by Dr Lucy Santos Chloride 104 mmol/L Normal 98-107 [facility] Comment on above: Order Comment: CALL doctor [id number] tel. , fax [phone] by Dr Lucy Santos Result Comment: Effe ctive: 02/24/2017Reference Range Modified CO2 27 mmol/L Critically high 17-24 [facility] Comment on above: Order Comment: CALL doctor [id number] tel. , fax [phone] by Dr Lucy Santos Result Comment: Effe ctive: 02/24/2017Reference Range Modified Creatinine 0.88 mg/dL Normal 0.50-0.90 [facility] Comment on above: Order Comment: CALL doctor [id number] tel. , fax [phone] by Dr Lucy Santos eGFR (black) mL/min/{1.73_m2} Normal >60 [facility] Comment on above: Order Comment: CALL doctor [id number] tel. , fax [phone] by Dr Lucy Santos Result Comment: >60 mL/min/1.73m2 EGFR, calc. for ages 18 and older using theMDRD formula (not corrected for weight), is valid for stablerenal function. eGFR (MDRD) mL/min/{1.73_m2} Normal >60 [facility] Comment on above: Order Comment: CALL doctor [id number] tel. , fax [phone] by Dr Lucy Santos Result Comment: >60 mL/min/1.73m2 EGFR, calc. for ages 18 and older using theMDRD formula (not corrected for weight), is valid for stablerenal function. Glucose mass conc 105 mg/dL Normal 74-109 [facility] Comment on above: Order Comment: CALL doctor [id number] tel. , fax [phone] by Dr Lucy Santos Potassium molar conc 4.6 mmol/L Critically high 3.2-4.4 [facility] Comment on above: Order Comment: CALL doctor [id number] tel. , fax [phone] by Dr Lucy Santos Result Comment: Effe ctive: 02/24/2017Reference Range Modified Sodium 145 mmol/L Critically high 132-138 [facility] Comment on above: Order Comment: CALL doctor [id number] tel. , fax [phone] by Dr Lucy Santos Result Comment: Effe ctive: 02/24/2017Reference Range Modified Urea nitrogen 26 mg/dL Critically high 8-23 [facility] Comment on above: Order Comment: CALL doctor L2725 tel. , fax [phone] by Dr Lucy Santos Hemoglobin A1con 02-25-2017 Hemoglobin A1c/Hemoglobin.tota l mass fraction (Bld) 5.9 % Normal 4.8-5.9 [facility] Comment on above: Order Comment: CALL doctor L2725 tel. , fax [phone] by Dr Lucy Santos Lipid Panelon 02-25-2017 Cholesterol 190 mg/dL Normal 0-199 [facility] Comment on above: Order Comment: CALL doctor L2725 tel. , fax [phone] by Dr Lucy Santos Result Comment: ATP III Cholesterol classification is Desirable. HDL Cholesterol 41 mg/dL Normal 40-59 [facility] Comment on above: Order Comment: CALL doctor L2725 tel. , fax [phone] by Dr Lucy Santos Result Comment: ATP III HDL Cholesterol Classification is Desirable.Expected Values:Males: >55 = No Risk 35-55 = Moderate Risk <35 = High RiskFemales: >65 = No Risk 45-65 = Moderate Risk <45 = High RiskNCEP Guidelines: Third Report July 2000>59 = negative risk factor for CHD<40 = major risk factor for CHD LDL Cholesterol 100 mg/dL Normal 0-129 [facility] Comment on above: Order Comment: CALL doctor L2725 tel. , fax [phone] by Dr Lucy Santos Result Comment: ATP III LDL Classification is Near Optimal. Triglyceride 247 mg/dL Critically high 0-200 [facility] Comment on above: Order Comment: CALL doctor L2725 tel. , fax [phone] by Dr Lucy Santos Result Comment: ATP [...] Electronic Signature on File ----Signed By: Lindsey [email or web address] nate: 11/20/2016 8:30 AMSigned: 11/20/2016 8:35 AM Reported By: RADHA CORDON M.D. Signed By: RADHA CORDON M.D. Normal [facility] CARD.Echoon 09-21-2016 CARD.Echo [Embedded Image Not Available][facility] Patient Name: ANH EWING [id number] [facility] Date of : [address], [place] [address] Unit Number: [id number] Number: [id number] Patient Status: REG CLIAttending Doctor: Lucy Santos MDService Date: 09/21/161824EchocardiogramStudy Date: 09/19/16llergies:Coded Allergies:SULFA (SULFONAMIDE ANTIBIOTICS) (Mild, 10/10/11)Summary:[facility] [place], [place] [address]Ykfhwlxynjj Cardiac DiagnosticsName: ANH EWING Study Date: 09/19/2016 09:04 AM BP: 153/75 mmHgMRN: [id number] Patient Location: op HR: 56DOB: 1955 Gender: Female Height: 64 inAge: 61 yrs Weight: 275 lbReason For Study: DYSPNEABSA: 2.2 [id number]: Dyspnea or SOB,Hypertension,Lung Disease,Edema,Light-head ed,SyncopeInterpretation SummaryLeft ventricular [...] ---------LVLd apical: 8.6 cmLVAd sax PM: 15.9 kq4Rzdj MeasurementsAortic R-R: 1.2 secAortic HR: 52.0 BPMDoppler [...] may exist.eSign Date and TimePatel,Nicolas Portillo MD [facility] Echocardiogram This is a preliminar y report only, as the practitioner review and authentication has not occurred. [facility] No Panel Information [facility] Vital Signs Date Time Vital Sign Value Performing Clinician Kingsleyi alexandra 04-25-2023 10:33-0500 Body height 164.2 cm Aric Carrillo MD Work Phone: [facility] 04-25-2023 10:33-0500 Body temperature 97.11 [degF] Aric Carrillo MD Work Phone: [facility] 04-25-2023 10:33-0500 Body weight 122.24 kg Aric Carrillo MD Work Phone: [facility] 04-25-2023 10:33-0500 Diastolic blood pressure 70 mm[Hg] Aric Carrillo MD Work Phone: [facility] 04-25-2023 10:33-0500 Heart rate 60 /min Aric Carrillo MD Work Phone: [facility] 04-25-2023 10:33-0500 SaO2% (BldA) [Mass fraction] 96 % Aric Carrillo MD Work Phone: [facility] 04-25-2023 10:33-0500 Systolic blood pressure 105 mm[Hg] Aric Carrillo MD Work Phone: [facility] Encounters Encounter Date Encounter Type Care Provider Facility Start: 05-28-2023 End: 05-28-2023 ambulatory MONI VELÁSQUEZ Facility:[facility] [place] Start: 05-28-2023 End: 05-28-2023 Patient encounter procedure Kiran Gifford MD Work Phone: Ophthalmology Comment on above: Status post corneal transplant (Primary Dx); Corneal scar, right eye; Pseudophakia Start: 04-25-2023 End: 04-25-2023 ambulatory MONI VELÁSQUEZ Facility:[facility] [place] Start: 04-25-2023 End: 04-25-2023 ambulatory Aric Carrillo MD Work Phone: Hematology/Oncology Comment on above: 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) (Primary Dx) Start: 04-25-2023 End: 04-25-2023 Patient encounter procedure Aric Carrillo MD Work Phone: [facility] Start: 04-02-2023 End: 04-02-2023 ambulatory KIRAN GIFFORD Facility:[facility] [place] Start: 03-12-2023 End: 03-12-2023 ambulatory KIRAN GIFFORD Facility:[facility] [place] Start: 03-05-2023 End: 03-05-2023 ambulatory KIRAN GIFFORD Facility:[facility] [place] Start: 03-05-2023 End: 03-05-2023 Patient encounter procedure Kiran Gifford MD Work Phone: Ophthalmology Comment on above: Status post corneal transplant (Primary Dx) Start: 03-01-2023 Patient encounter procedure Kiran Gifford MD Work Phone: [place] Yossi Brewer Comment on above: Status post corneal transplant (Primary Dx) Start: 01-29-2023 End: 01-29-2023 ambulatory MONI VELÁSQUEZ Facility:[facility] [place] Start: 01-22-2023 End: 01-22-2023 ambulatory KIRAN GIFFORD Facility:[facility] [place] Start: 01-22-2023 End: 01-22-2023 Patient encounter procedure Kiran Gifford MD Work Phone: Ophthalmology Comment on above: Corneal edema, secon barby, right (Primary Dx); Corneal scar, right eye; Pseudophakia Start: 01-16-2023 Telephone encounter Kiran beth MD Work Phone: [facility] Comment on above: Patient Question Start: 01-01-2023 End: 01-01-2023 ambulatory KIRAN GIFFORD Facility:[facility] [place] Start: 01-01-2023 End: 01-01-2023 Patient encounter procedure Kiran Gifford MD Work Phone: Ophthalmology Comment on above: Corneal edema, secon barby, right (Primary Dx); Corneal scar, right eye; Pseudophakia Start: 12-27-2022 Telephone encounter Kiran beth MD Work Phone: Ophthalmology Start: 12-11-2022 End: 12-11-2022 ambulatory EFEWONGBE B OLEGHE Facility:[facility] [place] Start: 12-04-2022 End: 12-04-2022 ambulatory EFEWVESTABURGBE B OLEE Facility:[facility] [place] Start: 11-22-2022 Telephone encounter Kiran beth MD Work Phone: Ophthalmology Comment on above: Appointment Start: 03-14-2017 Ambulatory Lucy Santos Facilit y:[facility] Start: 03-14-2017 Ambulatory Lucy Santos Facilit y:[facility] Start: 11-20-2016 Ambulatory Lucy L. Santos Facilit y:[facility] Start: 09-19-2016 Ambulatory Lucy L. Santos Facilit y:[facility] Procedures Date Procedure Procedure Detail Performing Clinician [...] Detail Author Start: 10-09-2027 Urine microalbumin profile [facility] Start: 04-25-2024 BP Controlled (<130/80) BP Controlle d (<130/80) [facility] Start: 03-17-2023 Advance Directive Discussion Advance Directive Discussion [facility] Start: 03-17-2023 Depression Assessment [facility] Start: 11-15-2022 Covid-19 Vaccine ( season) Covid-19 Vaccine ( season) [facility] Start: 11-15-2022 Influenza vaccination [facility] Start: 10-08-2022 Lipid 1996 panel - S michael or Plasma Lipid Screening [facility] Start: 10-08-2022 Lipid panel Lipid Screening [facility] Start: 10-08-2022 LIPID SCREEN LIPID SCREEN [facility] Start: 03-17-2022 ADVANCE DIRECTIVE DISCUSSION ADVANCE DIRECTIVE DISCUSSION [facility] Start: 03-17-2022 DEPRESSION ASSESSMENT [facility] Start: 01-31-2022 Pneumococcal Vaccine : 65+ (2 - PPSV23 or PCV20) Pneumococcal Vaccine: 65+ (2 - PPSV23 or PCV20) [facility] Start: 03-31-2021 [facility]AB[facility] Start: 03-31-2021 Diabetes Screening Diabetes Screenin g [facility] Start: 03-28-2021 Pneumococcal Vaccine : 65+ (2 of 2 - PPSV23 or PCV20) Pneumococcal Vaccine: 65+ (2 of 2 - PPSV23 or PCV20) [facility] Start: 05-16-2020 Colonoscopy Colonoscopy [facility] Start: 05-16-2020 Colorectal Cancer Screening Colorectal Cancer Screening [facility] Start: 05-16-2020 Screening for malign ant neoplasm of colon [facility] Start: 01-29-2020 BONE DENSITY BONE DENSITY [facility] Start: 01-29-2020 Bone Density Screening Bone Density Screening [facility] Start: 01-29-2020 Pneumococcal Vaccine : 65+ (1 - PCV) Pneumococcal Vaccine: 65+ (1 - PCV) [facility] Start: 01-29-2020 PNEUMOCOCCAL: 65+ (1 - PCV) PNEUMOCOCCAL: 65+ (1 - PCV) [facility] Start: 01-29-2020 Screening for osteoporosis Bone Dens ity Screening [facility] Start: 10-06-2019 Annual PCP Team Outpatient Coding Specialist armando Disease Visit Annual PCP Team Chronic Disease Visit [facility] Start: 10-08-2018 BP Controlled (<130/80) BP Controlle d (<130/80) [facility] Start: 06-26-2018 Mammography [facility] Start: 06-26-2018 Screening for malign ant neoplasm of breast Mammogram Screening [facility] Start: 2015 RSV Vaccine (1 - 1-d ose 60+ series) RSV Vaccine (1 - 1-dose 60+ series) [facility] Start: 2005 SHINGRIX VACCINE (1 of 2) SHINGRIX V ACCINE (1 of 2) [facility] Start: 01-29-2000 COLOGUARD (FIT-DNA) COLOGUARD (FIT-D NA) [facility] Start: 01-29-2000 Colonoscopy COLONOSCOPY [facility] Start: 01-29-2000 COLORECTAL CANCER SCREENING COLORECTAL CANCER SCREENING [facility] Start: 01-29-[address] COLONOGRAPHY [facility] Start: 01-29-2000 FECAL OCCULT BLOOD FECAL OCCULT BLOO D [facility] Start: 01-29-2000 Screening for malign ant neoplasm of colon [facility] Start: 01-29-2000 SIGMOIDOSCOPY SIGMOIDOSCOPY [facility] Start: 1974 Shingrix Vaccine (1 of 2) Shingrix V accine (1 of 2) [facility] Start: 1955 COVID-19 VACCINE (#1) COVID-19 VACCI NE (#1) [facility] c [facility] c [facility] Immunizations Immunization Date Immunization Notes Care Provider Chaparro sims 04-07-2018 influenza virus vacc ine, unspecified formulation Kiran Gifford MD Work Phone: [facility] Payers Date Payer Category Payer Medicare [employer]NA MEDICARE HU[employer]NA MEDICARE PPO [id number] 2020-Present [phone] [address] [place] [address] PPO [id number] 2020 Medicare [id number] 2015 Unknown [id number] Social History Date Type Detail Facility Start: 06-06-2017 End: 12-04-2022 Tobacco smoking status NHIS Never smoked tobacco [facility] Start: 06-06-2017 End: 12-04-2022 Tobacco use and exposure Smokeless tobacco non-user [facility] Start: 10-05-2018 End: 05-28-2023 Alcohol intake Current non-drinker of alcohol (finding) [facility] Start: 10-05-2018 End: 01-29-2023 History of Social function [facility] Start: 10-05-2018 End: 01-29-2023 Tobacco use panel [facility] Adult Depression Scr eening Assessment 0 [facility] Start: 1955 Sex Assigned At Not on file [facility] Medical Equipment Procedure Code Equipment Code Equipment Origin al Text Equipment Identifier Dates Cornea Tissue Pre-Loaded Dmek - [id number] Start: 02-28-2023 Gas Ispan Constellation Intraocular Vision System [id number] - [id number] Start: 02-28-2023 Clinical Notes 11-22-2022 to 05-28-2023 Kiran Gifford MD - 05/28/2023 11:21 AM EDTAAric mcpherson MD - 04/25/2023 10:39 AM ESTPatient InstructionsKiran Gifford MD - 03/05/2023 11:11 AM ESTPatient Instructions Note Date & Type Note Facility 05-28-2023 Note HNO ID: [id number] Author: KIRAN GIFFORD MD Service: ? Author [...] of its relevant components. Kiran Gifford MD [facility] 05-28-2023 History of Presen t illness Narrative [...] Kiran Gifford MD documented in this encounter [facility] 04-25-2023 Note HNO ID: [id number] Author: ARIC CARRILLO MD Service: ? Author [...] of 45 minute (more content not included)... [facility] 04-25-2023 History of Presen t illness [...] which included preparing to see the patient, [id number] patient care, completing clinical documentation, obtaining and/or reviewing separately obtained history, counseling and educating the patient/family/caregiver, communicating with other HCPs (not separately reported), independently interpreting results (not separately reported), and communicating results to the patient/family/caregiver. ' Electronically Signed: Aric Carrillo MD April 25, 2023 10:39 AM documented in this encounter [facility] 04-02-2023 Note HNO ID: [id number] Author: KIRAN GIFFORD MD Service: ? Author [...] of its relevant components. Kiran Gifford MD [facility] 03-12-2023 Note HNO ID: [id number] Author: Kiran Gifford MD Service: ? Author [...] of its relevant components. Kiran Gifford MD [facility] 03-05-2023 Note HNO ID: [id number] Author: Kiran Gifford MD Service: ? Author [...] of its relevant components. Kiran Gifford MD [facility] 03-05-2023 Instructions Kiran Gifford MD - 03/05/2023 11:12 AM EST -prednisolone 4x daily right eye -vigamox four times a day right eye -lie flat on back every two hours -precautions documented in this encounter [facility] 03-05-2023 History of Presen t illness Narrative [...] Kiran Gifford MD documented in this encounter [facility] 03-01-2023 Note HNO ID: [id number] Author: Kiran Gifford MD Service: ? Author [...] of its relevant components. Kiran Gifford MD [facility] 03-01-2023 Instructions Kiran Gifford MD - 03/01/2023 1:32 PM EST Images from the original note were not included. documented in this encounter [facility] 03-01-2023 History of Presen t illness Narrative [...] Kiran Gifford MD documented in this encounter [facility] 02-28-2023 History of Past i llness Narrative Problem Noted Date Diagnosed Date Resolved Date Corneal edema, secondary, right 02/28/2023 02/28/2023 documented as of this encounter (statuses as of 03/01/2023) [facility]12-15-2023 History of Past illness Narrative* Problem Noted Date Diagnosed Date Resolved Date Corneal edema, secondary, right 02/28/2023 02/28/2023 documented as of this encounter (statuses as of 03/06/2023) [facility]12-15-2023 History of Past illness Narrative* Problem Noted Date Diagnosed Date Resolved Date Corneal edema, secondary, right 02/28/2023 02/28/2023 documented as of this encounter (statuses as of 04/25/2023) [facility]12-15-2023 History of Past illness Narrative* Problem Noted Date Diagnosed Date Resolved Date Corneal edema, secondary, right 02/28/2023 02/28/2023 documented as of this encounter (statuses as of 05/28/2023) [facility]11-08-2023 NoteHNO ID: [id number] Author: Kiran Gifford MD Service: ? Author [...] all of its relevant components. Kiran Gifford, [facility]11-08-2023 Instructions* Patient Instructions* Kiran Gifford MD - 01/22/2023 9:36 AM EST -Tre White (surgical scheduling): [phone] documented [facility] History of Present illness Narrative* Kiran Gifford [...] components. Kiran Gifford MD [facility]-2023 Miscellaneous Notes* Telephone Encounter - Cherise West [...] which she is under the care of [facility] to control her hypertension. Patient states she started these medications shortly before she started to experience the eye pain in the right eye. Patient spoke with the [facility] and they advised that she [...] asking for a phone call back at [phone]. Review and advise. documented [facility]10-[facility]-2023 NoteHNO ID: [id number] Author: Kiran Gifford MD Service: ? Author [...] all of its relevant components. Kiran Gifford, [facility]10-18-2023 History of Present illness Narrative* Kiran [...] components. Kiran Gifford MD documented [facility]10-[facility]-2023 Miscellaneous Notes* Telephone Encounter - Arieltheresa HeshamAbbi - 12/27/2022 10:59 AM EDT Ptient called wanting to let you know she is having carpel tunnel surgery on 01/07 and didn't know if it would affect her eyes.Abbi Mehran Pss documented in this encounterOhio[facility]09-27-2023 NoteHNO ID: [id number] Author: Kiran Gifford MD Service: ? Author [...] all of its relevant components. Kiran Gifford, [facility]09-20-2023 NoteHNO ID: [id number] Author: Kiran Gifford MD Service: ? Author [...] Kiran Gifford MD December 04, 2022 9:09 [facility]09-08-2023 Miscellaneous Notes* Telephone Encounter - Luciana Valencia OA - 11/22/2022 3:45 PM EDT Spoke with Randee brar at the [facility] regarding this patient's referral to Dr. Gifford. She stated that the patient is scheduled to see one of their providers on Friday11/25/2022 for a follow up. Patient is scheduled to then follow up with Dr. Gifford for a consult on 12/04/2022. This patient has also been added to the wait list for a cancellation. 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 documented in this encounter [facility] note* Diagnosis 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 documented in this encounter [facility] note* Diagnosis Status post 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, right eye Corneal opacity, unspecified Pseudophakia Lens replaced by other means documented in this encounter [facility] Summary Purpose Family History No Family History Records FoundNo Family History Records FoundNo Family History Records Found Advance Directives No Advanced Directives Records FoundNo Advanced Directives Records FoundNo Advanced Directives Records Found Additional Source Comments INFORMATION SOURCE (unrecogn ized section and content) DATE CREATED AUTHOR 09/03/2017 [facility] DATE CREATED AUTHOR AUTHOR'S ORGANIZ ATION 09/08/2017 [facility] DATE CREATED AUTHOR AUTHOR'S ORGANIZ ATION 05/29/2023 [facility] Source Comments (unrecognize d section and content) In the event this informatio n is protected by the Federal Confidentiality of Alcohol and Drug Abuse Patient Records regulations: The Federal rules restrict any use of the information to criminally investigate or prosecute any alcohol or drug abuse patient.[facility] CenterIn the event this information is protected by the Federal Confidentiality of Alcohol and Drug Abuse Patient Records regulations: The Federal rules restrict any use of the information to criminally investigate or prosecute any alcohol or drug abuse patient.[facility] CenterIn the event this information is protected by the Federal Confidentiality of Alcohol and Drug Abuse Patient Records regulations: The Federal rules restrict any use of the information to criminally investigate or prosecute any alcohol or drug abuse patient.[facility] CenterIn the event this information is protected by the Federal Confidentiality of Alcohol and Drug Abuse Patient Records regulations: The Federal rules restrict any use of the information to criminally investigate or prosecute any alcohol or drug abuse patient.[facility] Center[facility] the event this information is protected by the Federal Confidentiality of Alcohol and Drug Abuse Patient Records regulations: The Federal rules restrict any use of the information to criminally investigate or prosecute any alcohol or drug abuse patient.[facility] CenterIn the event this information is protected by the Federal Confidentiality of Alcohol and Drug Abuse Patient Records regulations: The Federal rules restrict any use of the information to criminally investigate or prosecute any alcohol or drug abuse patient.[facility] CenterIn the event this information is protected by the Federal Confidentiality of Alcohol and Drug Abuse Patient Records regulations: The Federal rules restrict any use of the information to criminally investigate or prosecute any alcohol or drug abuse patient.[facility] CenterIn the event this information is protected by the Federal Confidentiality of Alcohol and Drug Abuse Patient Records regulations: The Federal rules restrict any use of the information to criminally investigate or prosecute any alcohol or drug abuse patient.[facility] CenterIn the event this information is protected by the Federal Confidentiality of Alcohol and Drug Abuse Patient Records regulations: The Federal rules restrict any use of the information to criminally investigate or prosecute any alcohol or drug abuse patient.[facility] Reason for Visit (unrecogniz ed section and content) Reason Comments Appointment Reason Comments Corneal Edema Follow Up Reason Comments Patient Question Reason Comments Post-op (Ophthalmology) Right Eye Reason Comments New Patient Care Teams (unrecognized sec tion and content) Plate Inspector Relationship Specialty Start Date End Date Moni Velásquez MD [address] [place] [address] PCP - General Internal Medicine 07/04/20 Plate Inspector Relationship Specialty Start Date End Date Moni Velásquez MD [address] [place] [address] PCP - General Internal Medicine 07/04/20 Plate Inspector Relationship Specialty Start Date End Date [facility]i Vel[facility]quez [facility] [address] [facility] [address] [place] [address] PCP - General Internal Medicine 07/04/20 Plate Inspector Relationship Specialty Start Date End Date Moni Velásquez MD [address] [place] [address] PCP - General Internal Medicine 07/04/20 Plate Inspector Relationship Specialty Start Date End Date Moni Velásquez MD [address] [place] [address] PCP - General Internal Medicine 07/04/20 Plate Inspector Relationship Specialty Start Date End Date Moni Velásquez MD [address] [place] [address] PCP - General Internal Medicine 07/04/20 Plate Inspector Relationship Specialty Start Date End Date Moni Velásquez MD [address] [facility] [address] [place] [phone] PCP - General Internal Medicine 07/04/20 Plate Inspector Relationship Specialty Start Date End Date Moni Velásquez MD [address] [facility] [address] [place] [phone] PCP - General Internal Medicine 07/04/20 FOR [...] BE BASED ON THE PRIMARY CLINICAL RECORDS. [email or web address] [facility]. provides no warranty or guarantee of the accuracy or completeness of information in this document.
--- NOTE | 2024-01-12 16:15 | MRI_ITS ---
STUDY: MRI LUMBAR SPINE WITHOUT CONTRAST REASON FOR EXAM: Female, 68 years old. SPINAL STENOSIS TECHNIQUE: Standardized fat and water weighted pulse sequences were obtained in the sagittal and axial planes. COMPARISON: None FINDINGS: T12-L1: Degenerative endplate changes. Normal disc height, desiccation and tiny central disc protrusion. Normal bilateral facet joints. Normal central canal and bilateral lateral recesses. Normal bilateral intervertebral neural foramina. Normal lumbar lordosis. There is no substantial scoliosis. Normal conus medullaris that terminates at T12-L1 L1-2: Normal endplates. Normal disc height, hydration and morphology. Normal bilateral facet joints. Normal central canal and bilateral lateral recesses. Normal bilateral intervertebral neural foramina. L2-3: Normal endplates. Normal disc height, hydration and morphology. Normal bilateral facet joints. Normal central canal and bilateral lateral recesses. Normal bilateral intervertebral neural foramina. L3-4: Normal endplates. Normal disc height, hydration and morphology. Facet arthropathy and thickening of ligamenta flava slightly worse on the right. Normal central canal and bilateral lateral recesses. Normal bilateral intervertebral neural foramina. L4-5: Degenerative endplate changes. Grade 1 retrolisthesis. Narrowed disc space with minimal bulging disc osteophyte complex. Facet arthropathy slightly more pronounced on the right. Normal central canal and bilateral lateral recesses. Mild left neural foraminal stenosis and moderate narrowing on the right L5-S1: Normal endplates. Normal disc height, desiccation and tiny left foraminal disc protrusion. Normal bilateral facet joints. Normal central canal and bilateral lateral recesses. Moderate left neural foraminal encroachment. Normal visualized sacral ala. Normal visualized paraspinous soft tissue structures. MRI/Spine Lumbar (Routine) IMPRESSION: No acute fracture or other significant bony pathology. Mild spondylosis and spinal stenosis at L4-5 slightly worse on the right and at L5-S1 worse on the left secondary to disc disease and facet arthropathy Electronically Signed: Bo David MD at 19:39 EDT ,
== END | disposition home or self-care (01) ==
PROVIDERS: PCP Internal Medicine; Referring Provider Anesthesiology Pain Medicine; Visit Provider Anesthesiology Pain Medicine
DX: M48.062 Spinal stenosis, lumbar region with neurogenic claudication (principal)
CPT/HCPCS: 72148

== ENCOUNTER → 2024-01-30 | Outpatient (CLI) | payer MEDICARE, SELFPAY ==
[2024-01-30 12:33] LABS: ALB/GLOB Ratio 0.9 RATIO (0.9-2.4); AST(SGOT) 18 U/L (15-37); Alanine Aminotransfer ALT/SGPT 17 U/L (13-56); Albumin, Serum 3.2 g/dL (3.2-5.0); Alkaline Phosphatase 79 U/L (45-117); Anion Gap 7 (5-15); BUN 35 mg/dL (7-18); BUN/Creat Ratio 29.9 RATIO (10-20); Calcium,Total 9.9 mg/dL (8.5-10.1); Chloride 111 mmol/L (98-107); Creatinine, Serum 1.17 mg/dL (0.55-1.02); EST Glomerular Filtration Rate 49 mL/min (>60); Est Glom Filt Rate - Afr Amer 59 mL/min (>60); Globulin 3.7 g/dL (2.2-4.2); Glucose 123 mg/dL (74-106); Potassium 3.6 mmol/L (3.5-5.1); Protein, Total 6.9 g/dL (6.4-8.2); Sodium Level 142 mmol/L (136-145)
[2024-01-30 12:35] LABS: Absolute Lymphocyte Count 1.81 X10^3/uL (0.83-4.51); Absolute Neutrophil Count 4.8 X10^3/uL (2.0-7.7); Basophil# 0.07 X10^3/uL; Basophil% 0.9 % (0-1); Hematocrit 41.6 % (37-47); Lymphocyte # 1.81 X10^3/ul (0.83-4.51); Lymphocyte % 23.6 % (19-41); Mean Corp Hgb Conc 31.3 g/dL (32-36); Mean Corpuscular Hgb 28.9 pg (27.0-32.0); Mean Corpuscular Volume 92.4 fL (81-99); Mean Platelet Vol. 9.8 fl (6.2-12.0); Monocyte# 0.91 X10^3/uL; Monocyte% 11.8 % (0-10); NRBC Flagged by Analyzer 0 % (0-5); Neutrophil # 4.84 X10^3/uL (2.7-7.7); Platelet Count 299 K/mm3 (150-450); RBC Distribution Width CV 14.2 % (11.6-14.6); RBC Distribution Width SD 47.9 fl (35.1-43.9); White Blood Count 7.7 K/mm3 (4.4-11.0)
== END | disposition home or self-care (01) ==
LOC: MTLAB 10:35
PROVIDERS: PCP Internal Medicine; Referring Provider Internal Medicine Rheumatology; Visit Provider Internal Medicine Rheumatology
DX: M05.70 Rheumatoid arthritis with rheumatoid factor of unspecified site without organ or systems involvement (principal); R76.8 Other specified abnormal immunological findings in serum; Z79.899 Other long term (current) drug therapy
CPT/HCPCS: 36415; 80053; 85025

== ENCOUNTER → 2024-04-23 | Outpatient (CLI) | payer MEDICARE, SELFPAY ==
[2024-04-23 10:13] LABS: Absolute Lymphocyte Count 2.61 X10^3/uL (0.83-4.51); Absolute Neutrophil Count 2.1 X10^3/uL (2.0-7.7); Basophil# 0.08 X10^3/uL; Basophil% 1.4 % (0-1); Eosinophils% 1.8 % (0-5); Hematocrit 42.5 % (37-47); Hemoglobin 13.1 g/dL (12.0-15.0); Lymphocyte # 2.61 X10^3/ul (0.83-4.51); Lymphocyte % 46.9 % (19-41); Mean Corp Hgb Conc 30.8 g/dL (32-36); Mean Corpuscular Hgb 28.2 pg (27.0-32.0); Mean Corpuscular Volume 91.6 fL (81-99); Mean Platelet Vol. 9.8 fl (6.2-12.0); Monocyte# 0.63 X10^3/uL; Monocyte% 11.3 % (0-10); NRBC Flagged by Analyzer 0 % (0-5); Neutrophil # 2.13 X10^3/uL (2.7-7.7); Neutrophil % 38.2 % (47-70); Platelet Count 247 K/mm3 (150-450); RBC Distribution Width CV 14.3 % (11.6-14.6); RBC Distribution Width SD 48.4 fl (35.1-43.9); Red Blood Count 4.64 M/mm3 (4.2-5.4); White Blood Count 5.6 K/mm3 (4.4-11.0)
[2024-04-23 10:23] LABS: ALB/GLOB Ratio 0.8 RATIO (0.9-2.4); AST(SGOT) 20 U/L (15-37); Alanine Aminotransfer ALT/SGPT 20 U/L (13-56); Albumin, Serum 3.1 g/dL (3.2-5.0); Alkaline Phosphatase 76 U/L (45-117); Anion Gap 7 (5-15); BUN 24 mg/dL (7-18); Calcium,Total 10.3 mg/dL (8.5-10.1); Chloride 106 mmol/L (98-107); Creatinine, Serum 1.09 mg/dL (0.55-1.02); EST Glomerular Filtration Rate 53 mL/min (>60); Est Glom Filt Rate - Afr Amer 64 mL/min (>60); Globulin 3.9 g/dL (2.2-4.2); Glucose 108 mg/dL (74-106); Potassium 3.8 mmol/L (3.5-5.1); Sodium Level 139 mmol/L (136-145)
== END | disposition home or self-care (01) ==
LOC: MTLAB 08:03
PROVIDERS: PCP Internal Medicine; Referring Provider Internal Medicine Rheumatology; Visit Provider Internal Medicine Rheumatology
DX: M05.70 Rheumatoid arthritis with rheumatoid factor of unspecified site without organ or systems involvement (principal); R76.8 Other specified abnormal immunological findings in serum; Z79.899 Other long term (current) drug therapy
CPT/HCPCS: 36415; 80053; 85025

== ENCOUNTER → 2024-04-26 | Outpatient (CLI) | payer MEDICARE, SELFPAY ==
[2024-04-26 16:16] LABS: PTHIN 73.8 pg/mL (18.4-80.1)
== END | disposition home or self-care (01) ==
LOC: MTLAB 11:36
PROVIDERS: PCP Internal Medicine; Referring Provider Internal Medicine Rheumatology; Visit Provider Internal Medicine Rheumatology
DX: M05.70 Rheumatoid arthritis with rheumatoid factor of unspecified site without organ or systems involvement (principal); R76.8 Other specified abnormal immunological findings in serum; Z79.899 Other long term (current) drug therapy
CPT/HCPCS: 36415; 83970

== ENCOUNTER → 2024-06-10 | Outpatient (CLI) | payer MEDICARE, SELFPAY ==
--- NOTE | 2024-06-10 10:30 | BD_ITS ---
EXAM: DEXA BONE DENSITY STUDY 06/10/2024 REASON FOR EXAM: POST MENOPAUSAL F,69 y/o patient is postmenopausal. TECHNIQUE: DXA scan of the lumbar spine and total body less head, using make and model. REFERENCE LINKS: ISCD Pediatric Positions ISCD Adult Positions COMPARISON: None. FINDINGS: BMD and Z-SCORES DEXA examination of lumbar spine shows a bone mineral density measures 0.978 grams/centimeter squared. T-score measures -0.6 and Z-score measures 1.4. There has been a significant increase in the bone mineral density of the lumbar spine by 3.4% since the prior study dated 06/20/2021. DEXA examination left femoral neck shows a bone mineral density measures 0.771 grams/centimeter squared. T-score measures -0.7 and Z-score measures 1.1. Total bone mineral density of the left hip measures 0.944 grams/centimeter squared. T-score measures 0 and Z-score measures 1.5. There has been a decrease in the bone mineral density of the left hip by 1.7% since the prior study dated 06/20/2021. DEXA examination of the right femoral neck shows a bone mineral density measures 0.777 grams/centimeter squared. T-score measures -0.6 and Z-score measures 1.1. Total bone mineral density of the right hip measures 1.029 grams/centimeter squared. T-score measures 0.7 and Z-score measures 2.2. There has been an increase in the bone mineral density of the right hip by 2.6% since the prior study dated 06/20/2021. Fracture Risk Calculation: FRAX (10-year Fracture Risk) Score: 10 year fracture risk index for major osteoporotic fracture is 17% and for hip fracture is 1.4%. BD/Dexa Bone Density Study IMPRESSION: Patient demonstrates normal bone mineral density of the lumbar spine and both h ips. Recommend follow-up, if clinically warranted. Reading Location: [id number]
--- NOTE | 2024-06-10 11:00 | BI_ITS ---
EXAM: SCRN MAMM (CAD)W/CLAUDETTE BILAT DATE: 06/10/2024 CLINICAL HISTORY: F, Age 69 y/o , BREAST CANCER SCREENING BREAST CANCER RISK ASSESSMENT: Does not appear to have been calculated. TECHNIQUE: Bilateral screening digital breast tomosynthesis with 2D and 3D images. Computer aided detection. COMPARISON: Prior exam(s) dated . FINDINGS: TISSUE DENSITY: The breast tissue is almost entirely fatty. Bilateral Breast Mammographic Findings: There are no suspicious masses, suspicious clustered microcalcifications, architectural distortion or secondary signs of malignancy identified in either breast. Benign round microcalcifications are seen in both breasts. BI/SCRN MAMM (CAD)W/CLAUDETTE BILAT IMPRESSION: Right Breast: BIRADS 2 BENIGN FINDING. Left Breast: BIRADS 2 BENIGN FINDING. OVERALL FINAL ASSESSMENT: BIRADS 2 BENIGN FINDING RECOMMENDATION: Routine annual follow-up in 1 Year A letter with findings and recommendations will be mailed to the patient. Reading Location: [id number]
== END | disposition home or self-care (01) ==
LOC: OPBI 10:19
PROVIDERS: PCP Internal Medicine; Referring Provider Internal Medicine; Visit Provider Internal Medicine
DX: Z12.31 Encounter for screening mammogram for malignant neoplasm of breast (principal); Z78.0 Asymptomatic menopausal state
CPT/HCPCS: 77063; 77067; 77080

== ENCOUNTER → 2024-07-16 | Outpatient (CLI) | payer MEDICARE, SELFPAY ==
[2024-07-16 10:50] LABS: Absolute Lymphocyte Count 2.38 X10^3/uL (0.83-4.51); Basophil# 0.08 X10^3/uL; Basophil% 1.5 % (0-1); Eosinophils% 1.9 % (0-5); Hematocrit 41.7 % (37-47); Hemoglobin 13.4 g/dL (12.0-15.0); Lymphocyte # 2.38 X10^3/ul (0.83-4.51); Lymphocyte % 44.1 % (19-41); Mean Corp Hgb Conc 32.1 g/dL (32-36); Mean Corpuscular Hgb 29.1 pg (27.0-32.0); Mean Corpuscular Volume 90.7 fL (81-99); Mean Platelet Vol. 10.2 fl (6.2-12.0); Monocyte# 0.86 X10^3/uL; Monocyte% 15.9 % (0-10); NRBC Flagged by Analyzer 0 % (0-5); Neutrophil # 1.96 X10^3/uL (2.7-7.7); Neutrophil % 36.2 % (47-70); Platelet Count 225 K/mm3 (150-450); RBC Distribution Width CV 14.3 % (11.6-14.6); RBC Distribution Width SD 47.5 fl (35.1-43.9); White Blood Count 5.4 K/mm3 (4.4-11.0)
[2024-07-16 11:20] LABS: ALB/GLOB Ratio 1.2 RATIO (0.9-2.4); AST(SGOT) 25 U/L (<=31); Alanine Aminotransfer ALT/SGPT 17 U/L (<=34); Albumin, Serum 3.7 g/dL (3.4-4.8); Alkaline Phosphatase 81 U/L (35-104); Anion Gap 13 (5-15); BUN 23 mg/dL (4-19); Calcium,Total 9.9 mg/dL (7.6-11.0); Carbon Dioxide 22.3 mmol/L (21.0-32.0); Chloride 104 mmol/L (98-108); Creatinine, Serum 1.15 mg/dL (0.70-1.20); EST Glomerular Filtration Rate 52 (>60); Globulin 3.1 g/dL (2.2-4.2); Glucose 107 mg/dL (70-99); Protein, Total 6.7 g/dL (5.9-8.4); Sodium Level 139 mmol/L (133-145); Total Bilirubin 0.34 mg/dL (0.00-1.30)
== END | disposition home or self-care (01) ==
LOC: MTLAB 08:34
PROVIDERS: PCP Internal Medicine; Referring Provider Internal Medicine Rheumatology; Visit Provider Internal Medicine Rheumatology
DX: M05.70 Rheumatoid arthritis with rheumatoid factor of unspecified site without organ or systems involvement (principal); R76.8 Other specified abnormal immunological findings in serum; Z79.899 Other long term (current) drug therapy
CPT/HCPCS: 36415; 80053; 85025

== ENCOUNTER → 2024-10-15 | Outpatient (CLI) | payer MEDICARE, SELFPAY ==
--- OUTSIDE RECORDS SUMMARY | 2024-10-15 08:09 | XMS RPT_ITS | CCD ---
Author Organization [facility] Care Team Providers Care Compliance Advisor Name Role Phone Santos, Lucy L. Unavailable Unavailable Santos, Lucy L. Unavailable Unavailable Santos, Lucy L. Unavailable Unavailable Santos, Lucy L. Unavailable Unavailable Santos, Lucy L. Unavailable Unavailable Santos, Lucy L. Unavailable Unavailable Santos, Lucy L. Unavailable Unavailable Santos, Lucy L. Unavailable Unavailable Dr. Moni Velásquez Primary Care Provider [phone]) Dr. Moni Velásquez Referring Provider [phone] [facility] Unavailab Dr. Brian Cerrato Attending Provider [phone]) Dr. Amarjit Olivera Attending Provider [phone]) Dr. Brandon Esposito Attending Provider [phone] Dr. Amarjit Olivera Referring Provider [phone] Dr. Moni Velásquez Primary Care Provider 1(33 0) Dr. Moni Velásquez Referring Provider [phone] Dr. Moni Velásquez Primary Care Provider 1(33 0) Dr. Moni Velásquez Referring Provider [phone] ALEXIS Garcia NP Attending Provider Dr. Moni Velásquez Primary Care Provider 1(33 0) Dr. Moni Velásquez Referring Provider [phone] ALEXIS Garcia NP Attending Provider Moni Velásquez MD Primary Care Provider [phone] Didier, Dr. Hager Primary Care Provider [phone] Dr. Moni Velásquez Referring Provider [phone] Venancio BLOWER INSTALLER, BLOWER INSTALLER-C Richard Attending Provider Dr. Moni Velásquez Attending Provider [phone] Didier, Dr. Hager Other Provider [phone] Dr. Issac Huffman Attending Provider Didier, Dr. Hager Primary Care Provider [phone] Didier, Dr. Hager Attending Provider [phone] Didier, Dr. Hager Referring Provider [phone] Venancio BLOWER INSTALLER, BLOWER INSTALLER-C Richard Attending Provider Dr. Moni Velásquez Other Provider [phone] Dr. Issac Huffman Attending Provider Dr. Moni Velásquez Primary Care Provider 1(33 0) Dr. Moni Velásquez Attending Provider [phone] Didier, Dr. Hager Referring Provider [phone] Dr. Mati Mccann Attending Provider Dr. Arlene Acevedo Emergency Provider Dr. Thor Alfred Admit Provider Dr. Thor Alfred Attending Provider Dr. Thor Alfred Other Provider Dr. Rickie Hale Attending Provider Unavailable Dr. Rickie Hale Other Provider Unavailable Dr. Brandon Esposito Attending Provider ALEXIS Fraire Attending Provider Ramy, Dr. Thorne Referring Provider Dr. Mati Mccann Other Provider Dr. Lolis Walters Attending Provider KIRAN GIFFORD R Attending Unavailable OLEGHE, EFEWONGBE B Primary Care Unavailable ИРИНА, KIRAN R Attending Unavailable OLEGHE, EFEWONGBE B Primary Care Unavailable ИРИНА, KIRAN R Attending Unavailable OLEGHE, EFEWONGBE B Primary Care Unavailable OLEGHE, EFEWONGBE B Primary Care Unavailable ИРИНА, KIRAN R Attending Unavailable OLEGHE, EFEWONGBE B Primary Care Unavailable ARIC GUERRIER Attending Unavailable FREDDIE FRAIRE Referring Unavailable ИРИНА, KIRAN R Attending Unavailable OLEGHE, EFEWONGBE B Primary Care Unavailable OLEGHE, EFEWONGBE B Primary Care Unavailable ИРИНА, KIRAN R Attending Unavailable MARY SAUL Referring Unavailable OLEGHE, EFEWONGBE B Primary Care Unavailable ИРИНА, KIRAN R Attending Unavailable ИРИНА, KIRAN R Attending Unavailable OLEGHE, EFEWONGBE B Primary Care Unavailable OLEGHE, EFEWONGBE B Primary Care Unavailable Izaiahghe , Dr. Hager Primary Care Provider Didier HERNANDEZ, Dr. Hager Attending Provider [phone] 0) Didier HERNANDEZ, Dr. Hager Referring Provider 1(33 0) Dr. Andreina Cruz MD Attending Provider Dr. Andreina Cruz MD Referring Provider Didier HERNANDEZ, Dr. Hager Primary Care Provider Didier HERNANDEZ, Dr. Hager Attending Provider 1(33 0) Dr. Moni Velásquez MD Referring Provider 1(33 0) Didier HERNANDEZ, Dr. Hager Primary Care Provider Didier HERNANDEZ, Dr. Hager Attending Provider [phone] Didier HERNANDEZ, Dr. Hager Referring Provider 1(33 0) Dr. Andreina Cruz MD Attending Provider Dr. Andreina Cruz MD Referring Provider Oleghe, Efewongbe Primary Care Unavailable Oleghe, Efewongbe Referring Unavailable Oleghe, Efewongbe Attending Unavailable Oleghe, Efewongbe Primary Care Unavailable Oleghe, Efewongbe Referring Unavailable Oleghe, Efewongbe Attending Unavailable Oleghe, Efewongbe Primary Care Unavailable Vellanki, Andreina Referring Unavailable Vellanki, Andreina Attending Unavailable Oleghe, Efewongbe Primary Care Unavailable Oleghe, Efewongbe Referring Unavailable Oleghe, Efewongbe Attending Unavailable Oleghe, Efewongbe Primary Care Unavailable Oleghe, Efewongbe Referring Unavailable Elpidio Sorensen Attending Unavailable Oleghe, Efewongbe Primary Care Unavailable Oleghe, Efewongbe Referring Unavailable Oleghe, Efewongbe Attending Unavailable Oleghe, Efewongbe Primary Care Unavailable Vellanki, Andreina Referring Unavailable Pachecolanki, Andreina Attending Unavailable Pachecolanki, Andreina Consulting Unavailable Oleghe, Efewongbe Primary Care Unavailable Oleghe, Efewongbe Referring Unavailable Oleghe, Efewongbe Attending Unavailable Freddie Carrillo Consulting Unavailable Oleghe, Efewongbe Primary Care Unavailable Oleghe, Efewongbe Referring Unavailable Oleghe, Efewongbe Attending Unavailable Syed Wood Attending Unavailable Oleghe, Efewongbe Primary Care Unavailable Oleghe, Efewongbe Primary Care Unavailable Oleghe, Efewongbe Referring Unavailable Oleghe, Efewongbe Attending Unavailable Oleghe, Efewongbe Primary Care Unavailable Bo Fitzgerald Referring Unavailable Bo Fitzgerald Attending Unavailable Oleghe, Efewongbe Primary Care Unavailable Bo Fitzgerald Referring Unavailable Bo Fitzgerald Attending Unavailable Oleghe, Efewongbe Primary Care Unavailable Vellanki, Andreina Referring Unavailable Vellanki, Andreina Attending Unavailable Oleghe, Efewongbe Primary Care Unavailable Vellanki, Andreina Referring Unavailable Vellanki, Andreina Attending Unavailable Oleghe, Efewongbe Primary Care Unavailable Oleghe, Efewongbe Referring Unavailable Oleghe, Efewongbe Attending Unavailable Oleghe, Efewongbe Primary Care Unavailable Oleghe, Efewongbe Referring Unavailable Moni Velásquez Attending Unavailable Moni Velásquez Referring Unavailable Moni Velásquez Primary Care Unavailable Richard Garcia NP Attending Unavailable Moni Velásquez Primary Care Unavailable Moni Velásquez Referring Unavailable Moni Velásquez Attending Unavailable Allergies Allergy Classification Reported Allergen(s) Allergy Type Date of Onset Reaction(s) Facility (20 sources) Sulfonamides (Antibiotic); Translations: [SULFA (SULFONAMIDE ANTIBIOTICS)] Allergy to substance 06-07-19 Unknown [facility] (20 sources) amLODIPine; Translations: [AMLODIPINE] Drug Allergy 08-08-19 [facility] (20 sources) Hydroxychloroquine; Translations: [HYDROXYCHLOROQUINE] Drug Allergy 07-05-19 [facility] (9 sources) Sulfonamides (Antibiotic) Drug Intolerance 06-07-19 [facility] (3 sources) traMADol Drug Allergy 05-20-19 Itching [facility] (1 source) amLODIPine Drug Allergy 05-20-19 [facility] (1 source) Hydroxychloroquine Drug Allergy 05-20-19 [facility] (1 source) Sulfonamides (Antibiotic) Drug allergy (disorder) 05-20-19 [facility] (1 source) traMADol Drug Allergy 05-20-19 [facility] Medications Current Medications Medication Drug Class(es) Dates Sig (Normalized) Sig (Original) acetaminophen 500 mg oral capsule (20 sources) Start: 08-22-2023 End: 06-08-2024 take 2 capsules by mouth every eight hours as needed for pain Acetaminophen 500 mg capsule Active 1000 mg PO EVERY 8 HOURS NEEDED as needed for fever or pain 180 1 June 08, 2024 1:51pm Start: 2020 acetaminophen 325 mg cap Take by mouth. 0 2020 Active Start: 2020 End: 08-22-2023 take 1 capsule by mouth once as needed for pain Acetaminophen (Tylenol) 325 mg capsule Discontinued 325 mg PO ONCE as needed for fever or pain 2020 1:00am August 22, 2023 10:26am Comment on above: Take by mouth. apixaban 5 mg oral tablet (20 sources) Factor Xa Inhibitor Start: 04-17-2023 End: 08-20-2024 take 1 tablet by mouth twice daily Apixaban 5 mg tablet Active 5 mg PO TWICE A DAY 180 90 1 August 20, 2024 1:13pm Pulmonary embolism Other pulmonary embolism without acute cor pulmonale Start: 04-09-2023 End: 06-05-2023 take 2 tablets by mouth twice daily, then take 1 tablet by mouth twice daily Apixaban (Eliquis Dvt-Pe Treat 30d Start) 5 mg (74 tabs) tablets,dose pack Discontinued 5 mg PO TWICE A DAY 74 0 April 09, 2023 1:00am June 05, 2023 11:11am 10 mg p.o. twice daily x 7 days and subsequently 5 mg p.o. twice daily Comment on above: Take 5 mg by mouth t wo times a day. Blood Pressure Monitor (6 sources) Start: 04-17-2023 Blood Pressure Monitor Active 0 .ROUTE .MEDSUPPLY April 17, 2023 12:00am As directed Blood Pressure Monitor kit (3 sources) Start: 04-17-2023 Blood Pressure Monitor kit Active 0 .ROUTE .MEDSUPPLY 1 0 April 17, 2023 1:00am As directed Start: 04-17-2023 Blood Pressure Monitor kit Active 0 .ROUTE .MEDSUPPLY 1 April 17, 2023 1:00am As directed cholecalciferol 0.025 mg oral capsule (20 sources) Vitamin D Start: 12-17-2023 take 1 capsule by mouth once daily Cholecalciferol (Vitamin D3) 25 mcg (1,000 unit) capsule Active 25 ug PO daily December 17, 2023 12:00am Start: 12-28-2019 cholecalcifero l (VITAMIN D3) 1,000 unit tab tablet Take by mouth. 0 12/28/2019 Active Start: 12-28-2019 End: 06-05-2023 take 1 tablet by mouth once daily Cholecalciferol (Vitamin D3) 1,000 UNIT tablet Discontinued 1000 U PO DAILY December 28, 2019 12:00am June 05, 2023 11:12am Comment on above: Take by mouth. Take 1,000 Units by mouth once daily. Fluticasone-Umeclidin- Vilanter (3 sources) Anticholinergic, Corticosteroid, beta2-Adrenergic Agonist Start: 02-18-2024 Grikhpnogqh-Lrjlalhdy-Tu lanter (Trelegy Ellipta) 100-62.5-25 mcg blister with device Active 1 NMA INHALATION Q24H 60 2 February 18, 2024 1:00am Start: 02-18-2024 Fluticasone-Um eclidin-Vilanter (Trelegy Ellipta) 100-62.5-25 mcg blister with device Active 1 NMA INHALATION Q24H 60 February 18, 2024 1:00am gabapentin 100 mg oral capsule (3 sources) Anti-epileptic Agent Start: 05-19-2024 take 1 capsule by mouth once daily Gabapentin 100 mg capsule Active 100 mg PO daily May 19, 2024 1:00am Handicap Placard (20 sources) Start: 11-21-[address] Active 0 .ROUTE .MEDSUPPLY 1 0 November 21, 2022 12:00am Other reduced mobility reduced mobility As directed, length of time 3 years Start: 11-21-[address] Active 0 .ROUTE .MEDSUPPLY 1 November 20, 2022 11:00pm As directed, length of time 3 years Start: 11-21-[address] Active 0 .ROUTE .MEDSUPPLY 1 November 21, 2022 12:00am As directed, length of time 3 years Start: 12-20-[address] Active 0 .ROUTE .MEDSUPPLY 1 December 20, 2019 8:46am As directed, length of time 3 years Start: 12-20-[address] Active 0 .ROUTE .MEDSUPPLY 1 0 December 20, 2019 12:00am Other reduced mobility reduced mobility As directed, length of time 3 years Start: 12-20-[address] Active 0 .ROUTE .MEDSUPPLY December 19, 2019 11:00pm As directed, length of time 3 years Start: 12-20-[address] Active 0 .ROUTE .MEDSUPPLY 1 December 20, 2019 12:00am As directed, length of time 3 years leflunomide 20 mg oral tablet (20 sources) Antirheumatic Agent Start: 04-03-2023 take 1 tablet by mouth once daily Leflunomide 20 mg tablet Active 20 mg PO DAILY April 03, 2023 1:00am Start: 11-13-2022 End: 02-19-2023 Leflunomide 20 mg tablet Dis continued mg PO November 13, 2022 12:00am February 19, 2023 11:51am Start: 11-13-2022 End: 02-19-2023 Leflunomide Discontinued MG PO November 12, 2022 11:00pm February 19, 2023 10:51am Start: 11-13-2022 Leflunomide Ac tive MG PO November 13, 2022 12:00am Start: 12-27-2021 End: 09-18-2022 Leflunomide (Arava) 10 mg ta blet Discontinued 15 mg PO DAILY December 27, 2021 12:00am September 18, 2022 10:32am Comment on above: Take 20 mg by mouth once daily. montelukast 10 mg oral tablet (9 sources) Leukotriene Receptor Antagonist Start: End: take 1 tablet by mouth once daily in the evening Montelukast (Singulair) 10 mg tablet Active 10 mg PO EVERY EVENING 90 2 February 18, 2024 10:56am Start: 11-24-2023 End: 12-17-2023 take 1 tablet by mouth once daily in the evening Montelukast (Singulair) 10 mg tablet Discontinued 10 mg PO EVERY EVENING 30 2 November 24, 2023 12:00am December 17, 2023 3:40pm prednisoLONE acetate 10 mg/ml ophthalmic suspension (20 sources) Corticosteroid Start: 06-05-2023 Prednisolone A cetate 1 % drops,suspension Active 1 NMA OPHTHALMIC ONCE June 05, 2023 11:12am right eye Start: 04-03-2023 End: 06-05-2023 Prednisolone Acetate 1 % miguel ps,suspension Discontinued 1 NMA OPHTHALMIC THREE TIMES A DAY April 03, 2023 1:00am June 05, 2023 11:13am right eye Start: 02-28-2023 End: 03-07-2023 prednisoLONE acetate (PRED F ORTE) 1 % ophthalmic suspension Use 1 Drop [...] eye four times daily for 7 days. Turmeric extract (20 sources) Start: 05-01-2020 take 400 mg by mouth once daily Turmeric Active 400 MG PO DAILY May 01, 2020 3:31pm Start: 05-01-2020 End: 02-19-2023 take 1 capsule by mouth once daily Turmeric 400 mg capsule Discontinued 400 mg PO DAILY May 01, 2020 1:00am February 19, 2023 11:51am Start: 05-01-2020 End: 02-19-2023 take 400 mg by mouth once daily Turmeric Discontinued 400 MG PO DAILY May 01, 2020 12:00am February 19, 2023 10:51am Start: 05-01-2020 take 400 mg by mouth once francisco y Turmeric Active 400 MG PO DAILY May 01, 2020 12:00am Start: 05-01-2020 take 400 mg by mouth once francisco y Turmeric Active 400 MG PO DAILY May 01, 2020 1:00am Vibegron (20 sources) Start: 01-31-2021 take 1 tablet by belen th once daily Vibegron (Gemtesa) 75 mg tablet Active 75 MG PO DAILY January 31, 2021 11:15am Start: 01-31-2021 take 1 tablet by belen th once daily Vibegron (Gemtesa) 75 mg tablet Active 75 mg PO DAILY January 31, 2021 1:00am Start: 01-31-2021 take 1 tablet by belen th once daily Vibegron (Gemtesa) 75 mg tablet Active 75 MG PO DAILY January 31, 2021 12:00am Start: 01-31-2021 take 1 tablet by belen th once daily Vibegron (Gemtesa) 75 mg tablet Active 75 MG PO DAILY January 31, 2021 1:00am Completed/Discontinued Medications Medication Drug Class(es) Dates Sig (Normalized) Sig (Original) [id number] 200 actuat albuterol 0.09 mg/actuat metered dose inhaler (20 sources) beta2-Adrenergic Agonist Start: 08-22-2023 End: 12-24-2023 Albuterol Sulfate 90 mcg/actuation HFA aerosol inhaler Discontinued 2 NMA INHALATION EVERY 4-6 HOURS as needed for shortness of breath or wheezing 8.5 3 August 22, 2023 12:00am December 24, 2023 10:41am Start: 05-12-2019 End: 04-06-2023 Albuterol Sulfate 1 PUFF inh aler Discontinued 1 - 2 NMA INHALATION EVERY 4 HOURS NEEDED as needed for Sob &/Or Wheezing May 12, 2019 1:00am April 06, 2023 12:20pm Start: 05-12-2019 End: 04-06-2023 take 1 puff(s) by inhalation every four hours as needed Albuterol Sulfate Discontinued 1 - 2 PUFF INHALATION EVERY 4 HOURS NEEDED May 12, 2019 12:00am April 06, 2023 11:20am Start: 10-05-2018 take 2 puff(s) by in halation every six hours as needed albuterol HFA (PROAIR HFA) 90 mcg/actuation inhaler 2 Puffs every 6 hours as needed. Take as directed 2 Inhaler 0 10/05/2018 Active Comment on above: 2 Puffs every 6 hour s as needed. Take as directed amLODIPine 2.5 mg oral tablet (20 sources) Dihydropyridine Calcium Channel Kaden Start: 07-31-2022 End: 08-07-2022 Amlodipine 2.5 mg tablet Discontinued 2.5 mg PO DAILY July 31, 2022 12:00am August 07, 2022 10:22am (pt takes 1/2 of a 5mg tablet) Start: 07-31-2022 End: 08-07-2022 take 1 tablet by mouth once daily Amlodipine 2.5 mg tablet Discontinued 2.5 mg PO DAILY July 31, 2022 12:00am August 07, 2022 10:22am Start: 07-04-2022 End: 07-31-2022 take 5 mg by mouth once daily Amlodipine 10 mg tablet Discontinued 5 mg PO DAILY 90 3 July 04, 2022 8:48am July 31, 2022 9:05am Start: 07-04-2022 End: 07-31-2022 take 5 mg by mouth once daily Amlodipine Discontinued 5 MG PO DAILY 90 July 04, 2022 7:48am July 31, 2022 8:05am Start: 04-25-2020 End: 06-22-2021 take 1 tablet by mouth once daily Amlodipine 5 mg tablet Discontinued 5 mg PO DAILY 90 October 09, 2020 12:37pm June 22, 2021 10:42am Start: 10-05-2018 End: 07-04-2022 take 1 tablet by mouth once daily Amlodipine 10 mg tablet Discontinued 10 mg PO DAILY 90 October 17, 2021 4:51pm July 04, 2022 8:49am Comment on above: Take 1 tablet by belen th once daily. amoxicillin 875 mg / clavulanate 125 mg oral tablet (3 sources) Penicillin-class Antibacterial Start: 4 End: Amoxicillin-Pot Clavulanate 875-125 mg tablet Discontinued 1 {tbl} PO TWICE A DAY 14 0 October 16, 2023 12:00am November 24, 2023 9:03am atenolol 50 mg oral tablet (20 sources) beta-Adrenergic Kaden Start: End: take 1 tablet by mouth once daily Atenolol 50 mg tablet Discontinued 50 mg PO DAILY 90 October 21, 2022 6:08pm January 07, 2024 12:00pm Start: 07-09-2021 End: 12-27-2021 Atenolol 100 mg tablet Disco ntinued 50 mg PO DAILY 90 July 09, 2021 10:00am December 27, 2021 8:48am Start: 07-09-2021 End: 12-27-2021 take 50 mg by mouth once daily Atenolol Discontinued 5 0 MG PO DAILY July 09, 2021 9:00am December 27, 2021 7:48am Start: 02-04-2019 End: 07-09-2021 take 1 tablet by mouth once daily Atenolol 100 mg tablet Discontinued 100 mg PO DAILY 90 October 09, 2020 12:37pm July 09, 2021 10:00am Start: 02-02-2019 End: 02-04-2019 take 100 mg by mouth once daily Atenolol Discontinued 100 MG PO DAILY February 02, 2019 12:00am February 04, 2019 2:41pm Start: 09-21-2018 End: 02-04-2019 take 2 tablets by mouth once daily Atenolol 50 mg tablet Discontinued 100 mg PO DAILY February 02, 2019 1:00am February 04, 2019 3:41pm Comment on above: Take 2 tablets by mo [facility] once daily. benzonatate 100 mg oral capsule (3 sources) Non-narcotic Antitussive Start: 10-16-2023 End: 12-24-2023 Benzonatate 100 mg capsule Discontinued 100 mg PO 2 to 3 times per day as needed for cough 60 2 October 16, 2023 12:00am December 24, 2023 10:34am betamethasone 0.5 mg/ml topical cream (20 sources) Corticosteroid Start: 04-12-2019 betamethasone dipropionate (DIPROSONE) 0.05 % cream Apply to affected area. 0 04/12/2019 Active Start: 04-12-2019 Betamethasone Dipropionate 0.05 % cream Active 1 NMA TOPICAL DAILY as needed for skin April 12, 2019 1:00am Comment on above: Apply to affected ar ea. Budesonide-Formoterol (3 sources) Corticosteroid, beta2-Adrenergic Agonist Start: 11-24-2023 End: 12-17-2023 Budesonide-Formoterol (Symbicort) 160-4.5 mcg/actuation HFA aerosol inhaler Discontinued 2 NMA INHALATION Q12H 10.2 1 November 24, 2023 12:00am December 17, 2023 3:39pm Start: 11-24-2023 End: 12-17-2023 Budesonide-Formoterol (Symbi gonzalez) 160-4.5 mcg/actuation HFA aerosol inhaler Discontinued 2 NMA INHALATION Q12H 10.2 November 24, 2023 12:00am December 17, 2023 3:39pm calcium carbonate 1250 mg oral tablet (20 sources) Start: 12-28-2019 End: 06-05-2023 take 1 tablet by mouth once daily Calcium Carbonate 500 MG tablet Discontinued 500 mg PO DAILY December 28, 2019 12:00am June 05, 2023 11:12am Comment on above: Take 500 mg by mouth . Take 1 tablet by belen once daily. ciclopirox 80 mg/ml topical solution (9 sources) Start: 09-08-2017 Ciclopirox (LO PROX) 8 % solution Indications: Toenail fungus Apply 1 application to affected area daily at bedtime. 1 Bottle 0 09/08/2017 Active Comment on above: Apply 1 application to affected area daily at bedtime. circaid wrap (20 sources) Start: 03-29-2021 End: 06-22-2021 circaid wrap Discontinued 0 .Route .MEDSUPPLY 2 March 29, 2021 10:13am June 22, 2021 10:44am Wear daily Start: 03-29-2021 End: 06-22-2021 circaid wrap Discontinued 0 .Route .MEDSUPPLY 2 March 29, 2021 12:00am June 22, 2021 9:44am Wear daily Start: 03-29-2021 End: 06-22-2021 circaid wrap Discontinued 0 .Route .MEDSUPPLY 2 March 29, 2021 1:00am June 22, 2021 10:44am Wear daily circaid wrap XL (3 sources) Start: 03-29-2021 End: 06-22-2021 circaid wrap XL Discontinued 0 .Route .MEDSUPPLY 2 0 March 29, 2021 1:00am June 22, 2021 10:44am Wear daily Start: 03-29-2021 End: 06-22-2021 circaid wrap XL Discontinued 0 .Route .MEDSUPPLY 2 March 29, 2021 1:00am June 22, 2021 10:44am Wear daily dexamethasone 1 mg oral tablet (9 sources) Corticosteroid Start: 04-17-2023 End: 05-08-2023 take 1 tablet by mouth once Dexamethasone 1 mg tablet Discontinued 1 mg PO ONCE 1 0 April 17, 2023 1:00am May 08, 2023 3:34pm diclofenac sodium 0.01 mg/mg topical gel (20 sources) Nonsteroidal Anti-inflammatory Drug Start: 03-29-2021 End: 02-19-2023 apply 4 g topically once Diclofenac Sodium 1 % gel Discontinued 4 g TOPICAL ONCE June 22, 2021 10:44am February 19, 2023 11:50am apply to single knee, ankle, foot; for foot includes sole/toes/top of foot Start: 03-29-2021 End: 02-19-2023 apply 4 g topically once Diclofenac Sodium Discontinu ed 4 GM TOPICAL ONCE June 22, 2021 9:44am February 19, 2023 10:50am apply to single knee, ankle, foot; for foot includes sole/toes/top of foot fenofibrate 54 mg oral tablet (20 sources) Peroxisome Proliferator Receptor alpha Agonist Start: 11-13-2022 End: 11-11-2023 take 1 tablet by mouth once daily Fenofibrate 54 mg tablet Discontinued 54 mg PO DAILY 90 March 18, 2023 1:17pm November 11, 2023 12:40pm Comment on above: Take 54 mg by mouth once daily. Fluad Quad (65yr up)(PF) 60 mcg (15 mcg x 4)/0.5mL IM syringe (flu vac (3 sources) Start: 01-31-2021 End: 01-31-2021 Fluad Quad (65yr up)(PF) 60 mcg (15 mcg x 4)/0.5mL IM syringe (flu vac Discontinued 60 MCG IM ONCE 0.5 January 31, 2021 10:56am January 31, 2021 12:46pm furosemide 40 mg oral tablet (20 sources) Loop Diuretic Start: 09-21-2018 End: 12-27-2021 take 1 tablet by mouth once daily Furosemide 40 mg tablet Discontinued 40 mg PO DAILY 90 3 October 09, 2020 12:37pm December 27, 2021 8:27am Comment on above: Take 1 tablet by belen th once daily. ganciclovir 0.0015 mg/mg ophthalmic gel (8 sources) Cytomegalovirus Nucleoside Analog DNA Polymerase Inhibitor, Nucleoside Analog Antiviral Start: 12-11-2022 apply 1 drop(s) into the eye(s) five times daily ganciclovir (ZIRGAN) 0.15 % ophthalmic gel Use 1 Drop in the right eye five times daily. 5 g 4 12/11/2022 Active Comment on above: Use 1 Drop in the ri ght eye five times daily. GEMTESA 75 mg tablet (8 sources) Start: 11-23-2022 take 1 tablet by mouth once daily GEMTESA 75 mg tablet Take 75 mg by mouth once daily. 0 11/23/2022 Active Start: 11-23-2022 GEMTESA 75 mg tablet Comment on above: Take 75 mg by mouth once daily. hydrALAZINE hydrochloride 25 mg oral tablet (20 sources) Arteriolar Vasodilator Start: End: take 1 tablet by mouth twice daily Hydralazine 25 mg tablet Discontinued 25 mg PO TWICE A DAY 60 6 October 02, 2023 9:50am December 17, 2023 3:41pm Start: 09-18-2022 End: 04-03-2023 take 1 tablet by mouth twice daily Hydralazine 50 mg tablet Discontinued 50 mg PO TWICE A DAY 180 3 September 18, 2022 10:46am April 03, 2023 10:20am Start: 07-04-2022 End: 09-18-2022 take 1 tablet by mouth twice daily Hydralazine 25 mg tablet Discontinued 25 mg PO TWICE A DAY 180 3 July 31, 2022 9:07am September 18, 2022 10:47am hydroCHLOROthiazide 25 mg oral tablet (20 sources) Thiazide Diuretic Start: 07-31-2022 End: 12-17-2023 take 1 tablet by mouth once daily Hydrochlorothiazide 25 mg tablet Discontinued 25 mg PO DAILY 90 3 October 01, 2023 12:59pm December 17, 2023 3:41pm Comment on above: Take 25 mg by mouth once daily. icosapent ethyl 1000 mg oral capsule (20 sources) Start: 07-04-2022 End: 09-18-2022 Icosapent Ethyl (Vascepa) 1 gram capsule Discontinued 1 g PO DAILY July 04, 2022 8:35am September 18, 2022 10:32am Start: 2020 End: 07-04-2022 Icosapent Ethyl (Vascepa) 1 gram capsule Discontinued 2 g PO DAILY 180 90 3 March 14, 2021 2:03pm July 04, 2022 8:35am Start: 05-12-2019 End: 06-10-2019 take 2 capsules by mouth twice daily Icosapent Ethyl 1 GM capsule Discontinued 2 g PO TWICE A DAY May 12, 2019 1:00am June 10, 2019 10:26am Start: 05-12-2019 End: 06-10-2019 take 2 g by mouth twice daily Icosapent Ethyl Disconti nued 2 GM PO TWICE A DAY May 12, 2019 12:00am June 10, 2019 9:26am Start: 04-14-2019 End: 05-06-2019 Icosapent Ethyl (Vascepa) 1 gram capsule Discontinued 2 g PO TWICE A DAY 180 2 April 14, 2019 1:00am May 06, 2019 2:34pm losartan potassium 100 mg oral tablet (20 sources) Angiotensin 2 Receptor Kaden Start: 02-04-2019 End: 04-12-2019 take 1 tablet by mouth once daily Losartan 100 mg tablet Discontinued 100 mg PO DAILY 90 3 February 04, 2019 4:30pm April 12, 2019 4:07pm Start: 02-04-2019 End: 02-04-2019 take 1 tablet by mouth once daily Losartan 50 mg tablet Discontinued 50 mg PO DAILY February 04, 2019 1:00am February 04, 2019 4:32pm meloxicam 15 mg oral tablet (20 sources) Nonsteroidal Anti-inflammatory Drug Start: 04-25-2020 End: 12-27-2021 take 1 tablet by mouth once daily as needed for pain Meloxicam 15 mg tablet Discontinued 15 mg PO DAILY as needed for pain 90 0 October 06, 2020 1:59pm December 27, 2021 8:39am every other day Start: 09-06-2019 End: 04-25-2020 take 1 tablet by mouth every other day Meloxicam 15 mg tablet Discontinued 15 mg PO ONCE September 06, 2019 8:25am April 25, 2020 10:12am every other day Start: 07-12-2019 End: 09-06-2019 take 1 tablet by mouth once daily Meloxicam 15 mg tablet Discontinued 15 mg PO DAILY July 12, 2019 12:00am September 06, 2019 8:26am Start: 02-02-2019 End: 05-06-2019 take 1 tablet by mouth once daily Meloxicam 15 mg tablet Discontinued 15 mg PO DAILY February 02, 2019 1:00am May 06, 2019 2:33pm methylPREDNISolone acetate 40 mg/ml injectable suspension (20 sources) Corticosteroid Start: 01-03-2020 End: 01-03-2020 Depo-Medrol (methylprednisolone acetate) 40 mg/mL suspension for injection Discontinued 40 MG INTRAARTIC ONCE 1 January 03, 2020 2:04pm January 03, 2020 2:52pm Start: 06-08-2019 End: 07-12-2019 take 1 tablet by mouth once Methylprednisolone (Medrol (Cj)) 4 mg tablets,dose pack Discontinued 0 PO per package directions 21 June 08, 2019 12:00am July 12, 2019 8:40am PO PER PKG DIR moxifloxacin 5 mg/ml ophthalmic solution (14 sources) Quinolone Antimicrobial Start: 04-03-2023 End: 04-06-2023 Moxifloxacin 0.5 % drops Discontinued NMA OPHTHALMIC April 03, 2023 1:00am April 06, 2023 12:21pm Start: 04-03-2023 End: 04-06-[address] P OPHTHALMIC April 03, 2023 12:00am April 06, 2023 11:21am Start: 02-28-2023 End: 03-14-2023 take 1 drop(s) into the eye(s) four times daily moxifloxacin (VIGAMOX) 0.5 % ophthalmic solution Use 1 Drop in the right eye four times daily for 14 days. 3 mL 1 02/28/2023 03/14/2023 Active Comment on above: Use 1 Drop in the ri ght eye four times daily for 14 days. omeprazole 40 mg delayed release oral capsule (15 sources) Proton Pump Inhibitor Start: 11-14-19 End: 11-21-19 take 1 capsule by mouth once daily 30 minutes before breakfast Omeprazole 40 mg capsule,delayed release(DR/EC) Discontinued 40 mg PO DAILY 90 November 13, 2022 12:00am November 20, 2022 9:29am Take 30 minutes before breakfast ondansetron 4 mg disintegrating oral tablet (3 sources) Serotonin-3 Receptor Antagonist Start: 01-10-20 End: 05-20-19 take 1 tablet by mouth every eight hours as needed for nausea Ondansetron 4 mg tablet,disintegratin g Discontinued 4 mg PO EVERY 8 HOURS NEEDED as needed for Nausea 10 January 10, 2024 12:00am May 19, 2024 10:43am oxyCODONE hydrochloride 5 mg oral tablet (10 sources) Opioid Agonist Start: 04-09-19 End: 05-08-19 take 1 tablet by mouth every four hours as needed for pain Oxycodone 5 mg Tablet Discontinued 5 mg PO EVERY 4 HOURS NEEDED as needed for Pain Score 4-10 20 5 0 April 09, 2023 May 08, 2023 3:34pm Pulmonary embolism Other pulmonary embolism without acute cor pulmonale polyethylene glycol 400 2.5 mg/ml ophthalmic solution (20 sources) Start: 02-01-20 End: 04-06-19 Polyethylene Glycol 400 (Blink Gel Tears) 0.25 % drops,gel Discontinued NMA OPHTHALMIC January 31, 2021 1:00am April 06, 2023 12:21pm Start: 01-31-2021 End: 04-06-2023 Polyethylene Glycol 400 (Bli nk Gel Tears) 0.25 % drops,gel Discontinued DRP OPHTHALMIC January 31, 2021 12:00am April 06, 2023 11:21am predniSONE 20 mg oral tablet (3 sources) Start: 10-16-2023 End: 11-24-2023 take 2 tablets by mouth once daily Prednisone 20 mg tablet Discontinued 40 mg PO DAILY 10 0 October 16, 2023 12:00am November 24, 2023 9:04am simvastatin 20 mg oral tablet (20 sources) HMG-CoA Reductase Inhibitor Start: 10-05-2018 End: 06-05-2023 take 1 tablet by mouth at bedtime Simvastatin 20 mg tablet Discontinued 20 mg PO AT BEDTIME 90 3 June 14, 2022 8:47am June 05, 2023 11:12am Comment on above: Take 1 tablet by belen th daily at bedtime. sodium chloride 0.298859 meq/mg ophthalmic ointment (8 sources) Start: 12-04-2022 sodium chloride (RODRIGUE 128) 5 % ophthalmic ointment Use 1 application in the right eye daily at bedtime. 3.5 g 5 12/04/2022 Active Comment on above: Use 1 application in the right eye daily at bedtime. tiZANidine 4 mg oral capsule (3 sources) Central alpha-2 Adrenergic Agonist Start: 08-22-2023 End: 09-23-2024 take 1 capsule by mouth three times daily as needed Tizanidine 4 mg capsule Discontinued 4 mg PO THREE TIMES A DAY as needed August 22, 2023 12:00am September 23, 2024 1:02pm traMADol hydrochloride 50 mg oral tablet (20 sources) Opioid Agonist Start: 08-22-2023 End: 10-16-2023 take 1 tablet by mouth twice daily as needed Tramadol 50 mg tablet Discontinued 50 mg PO TWICE A DAY as needed August 22, 2023 12:00am October 16, 2023 2:17pm Start: 11-13-2022 End: 04-09-2023 take 1 tablet by mouth every six hours as needed for pain Tramadol 50 mg tablet Discontinued 50 mg PO EVERY 6 HOURS as needed for pain November 13, 2022 12:00am April 09, 2023 9:54am Start: 11-13-2022 Tramadol Activ e MG PO November 12, 2022 11:00pm Start: 10-08-2022 take 1 tablet by belen th every eight hours as needed traMADol (ULTRAM) 50 mg tablet Take 50 mg by mouth three times daily as needed. 0 10/08/2022 Active Start: 06-16-2019 End: 07-12-2019 take 1 tablet by mouth every eight hours as needed for pain Tramadol 50 mg tablet Discontinued 50 mg PO Q8H as needed for pain 30 0 June 16, 2019 2:41pm July 12, 2019 8:40am Other fracture of right lower leg, initial encounter for closed fracture Start: 06-04-2019 End: 06-16-2019 take 1 tablet by mouth every twelve hours as needed for pain Tramadol 50 mg tablet Discontinued 50 mg PO Q12H as needed for pain 14 0 June 04, 2019 12:00am June 16, 2019 2:41pm Comment on above: Take 50 mg by mouth three times daily as needed. trumeric (20 sources) Start: 2020 End: 05-01-2020 trumeric Discontinued PO 2020 11:08am May 01, 2020 3:31pm Start: 2020 End: 05-01-2020 trumeric Discontinued PO 0 N ovember 2019 1:00am May 01, 2020 3:31pm Start: 2020 End: 05-01-2020 trumeric Discontinued PO Nov 2019 12:00am May 01, 2020 2:31pm Start: 2020 End: 05-01-2020 trumeric Discontinued PO Nov 2019 1:00am May 01, 2020 3:31pm TURMERIC ROOT EXTRACT ORAL (8 sources) Start: 05-01-2020 TURMERIC ROOT EXTRACT ORAL Take 400 mg by mouth. 0 05/01/2020 Active Comment on above: Take 400 mg by mouth . valACYclovir 1000 mg oral tablet (20 sources) Herpesvirus Nucleoside Analog DNA Polymerase Inhibitor, Herpes Simplex Virus Nucleoside Analog DNA Polymerase Inhibitor, Herpes Zoster Virus Nucleoside Analog DNA Polymerase Inhibitor Start: 11-20-2022 take 1 tablet by mouth once valACYclovir (VALTREX) 1 gram Take 1 tablet by mouth every 12 (twelve) hours. 0 11/20/2022 Active Start: 11-20-2022 End: 02-19-2023 Valacyclovir (Valtrex) 1 gra m tablet Discontinued 1000 mg PO DAILY November 20, 2022 12:00am February 19, 2023 11:51am Comment on above: Take 1 tablet by belen th every 12 (twelve) hours. valsartan 320 mg oral tablet (20 sources) Angiotensin 2 Receptor Kaden Start: End: take 1 tablet by mouth once daily Valsartan 320 mg tablet Discontinued 320 mg PO DAILY 90 November 11, 2023 12:40pm December 17, 2023 3:55pm Comment on above: Take 1 tablet by belen th once daily. Problems Active Problems Problem Classification Problem Date Documented Date Episodic/Chronic Asthma (7 sources) Asthma; Translations: [Unspecified asthma, uncomplicated] Onset: 01-02-2024 11-24-2023 Chronic Cardiac dysrhythmias (20 sources) Bradycardia; Translations: [Bradycardia, unspecified] Episodic Cataract (3 sources) Artificial lens present; Translations: [Presence of intraocular lens] 01-01-2023 Chronic Chronic kidney disease (20 sources) Chronic kidney disease stage 3; Translations: [Stage 3 chronic kidney disease] 09-06-2019 Chronic Disorders of lipid metabolism (20 sources) Mixed hyperlipidemia; Translations: [Mixed hyperlipidemia] Chronic Esophageal disorders (18 sources) Gastroesophageal reflux disease; Translations: [Gastro-esophageal reflux disease without esophagitis] 11-13-2022 Chronic Essential hypertension (20 sources) Essential hypertension; Translations: [Essential (primary) hypertension] Chronic Gout and other crystal arthropathies (9 sources) Gout; Translations: [Gout, unspecified] Onset: 04-07-2018 04-07-2018 Chronic Immunizations and screening for infectious disease (4 sources) Needs influenza immunization; Translations: [Encounter for immunization] 02-18-2024 Episodic Osteoarthritis (20 sources) Osteoarthritis; Translations: [Unspecified osteoarthritis, unspecified site] Chronic Other aftercare (9 sources) Post-discharge follow-up; Translations: [Encounter for follow-up examination after completed treatment for conditions other than malignant neoplasm] 04-17-2023 Episodic Other aftercare (1 source) Encounter for follow-up examination after completed treatment for conditions other than malignant neoplasm; Translations: [Other follow-up examination] 04-17-2023 Episodic Other connective tissue disease (20 sources) Foot pain; Translations: [Pain in right foot] 12-20-2019 Episodic Other connective tissue disease (9 sources) Swelling of lower limb; Translations: [Other specified soft tissue disorders] 06-06-2017 Episodic Other connective tissue disease (3 sources) Muscle pain; Translations: [Myalgia, other site] 08-22-2023 Episodic Other endocrine disorders (18 sources) Adrenal mass; Translations: [Other specified disorders of adrenal gland] Onset: 02-14-2017 06-06-2017 Chronic Comment on above: 18mm 02/20173 cm in 2023 Other endocrine disorders (12 sources) Other specified disorders of adrenal gland; Translations: [Other specified disorders of adrenal glands] 04-17-2023 Chronic Other eye disorders (2 sources) Secondary corneal edema; Translations: [Secondary corneal edema, right eye] 01-01-2023 Episodic Other eye disorders (3 sources) Scar of cornea of right eye; Translations: [Unspecified corneal scar and opacity] 01-01-2023 Episodic Other inflammatory condition of skin (7 sources) Itching ; Translations: [Pruritus, unspecified] 05-08-2023 Episodic Other lower respiratory disease (20 sources) Dyspnea; Translations: [Dyspnea, unspecified] Onset: 09-19-2016 04-06-2023 Episodic Other lower respiratory disease (12 sources) Dyspnea on exertion; Translations: [Other forms of dyspnea] 04-03-2023 Episodic Other lower respiratory disease (12 sources) Hypoxemia; Translations: [Hypoxemia] 04-06-2023 Episodic Other lower respiratory disease (9 sources) Other forms of dyspnea; Translations: [Other respiratory abnormalities] 04-03-2023 Episodic Other lower respiratory disease (9 sources) Hypoxemia; Translations: [Hypoxemia] 04-06-2023 Episodic Other lower respiratory disease (4 sources) Paroxysmal cough; Translations: [Paroxysmal cough] 12-24-2023 Episodic Other nervous system disorders (6 sources) Carpal tunnel syndrome; Translations: [Carpal tunnel syndrome, right upper limb] 11-13-2022 Chronic Other nervous system disorders (13 sources) Carpal tunnel syndrome, right upper limb; Translations: [Carpal tunnel syndrome] 11-13-2022 Chronic Other nervous system disorders (9 sources) Carpal tunnel syndrome of right wrist; Translations: [Carpal tunnel syndrome, right upper limb] 04-11-2023 Chronic Other non-traumatic joint disorders (3 sources) Hip pain; Translations: [Pain in left hip] 09-22-2023 Episodic Other nutritional; endocrine; and metabolic disorders (20 sources) Body mass index 40+ - severely obese; Translations: [Morbid (severe) obesity due to excess calories] 01-31-2021 Chronic Other nutritional; endocrine; and metabolic disorders (9 sources) Morbid (severe) obesity due to excess calories; Translations: [Morbid obesity] 04-03-2023 Chronic Other nutritional; endocrine; and metabolic disorders (3 sources) Hypercalcemia; Translations: [Hypercalcemia] 08-22-2023 Chronic Pulmonary heart disease (1 source) Saddle embolus of pulmonary artery; 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] 04-25-2023 Chronic Residual codes; unclassified (3 sources) Bilateral lower limb edema; Translations: [Localized edema] 08-22-2023 Episodic Respiratory failure; insufficiency; arrest (adult) (20 sources) Respiratory failure; Translations: [Respiratory failure, unspecified, unspecified whether with hypoxia or hypercapnia] 04-06-2023 Episodic Rheumatoid arthritis and related disease (1 source) Rheumatoid arthritis with rheumatoid factor of unspecified site without organ or systems involvement; Translations: [Rheumatoid arthritis with rheumatoid factor of unspecified site without organ or systems involvement] Onset: 07-21-2024 Chronic Thyroid disorders (9 sources) Thyroid nodule; Translations: [Nontoxic single thyroid nodule] Onset: 02-14-2017 06-06-2017 Chronic Unclassified (1 source) Unknown / UNK(Unknown) Onset: 09-19-2016 Unclassified (1 source) Other specified cough; Translations: [Other specified cough] Onset: 10-16-2023 Past or Other Problems Problem Classification Problem Date Documented Da te Episodic/Chronic Other connective tissue disease (1 source) Myalgia, other site; Translations: [Myalgia, other site] Onset: 12-02-2023 Episodic Other inflammatory condition of skin (5 sources) Pruritus, unspecified; Translations: [Unspecified pruritic disorder] Onset: 11-25-2023 05-08-2023 Episodic Other injuries and conditions due to external causes (1 source) Encounter for examination and observation following other accident; Translations: [Encounter for examination and observation following other accident] Onset: 05-19-2024 Episodic Other non-traumatic joint disorders (1 source) Pain in left hip; Translations: [Pain in left hip] Onset: 12-02-2023 Episodic Other screening for suspected conditions (not mental disorders or infectious disease) (20 sources) Raised cardiac enzyme or marker; Translations: [Other specified abnormal findings of blood chemistry] Onset: 06-15-2024 04-06-2023 Episodic Pulmonary heart disease (20 sources) Pulmonary embolism; Translations: [Other pulmonary embolism without acute cor pulmonale] Onset: 10-16-2023 04-06-2023 Episodic Residual codes; unclassified (1 source) Asymptomatic menopausal state; Translations: [Asymptomatic menopausal state] Onset: 05-19-2024 Episodic Spondylosis; intervertebral disc disorders; other back problems (11 sources) Backache; Translations: [Dorsalgia, unspecified] Onset: 11-24-2023 05-19-2024 Episodic Unclassified (20 sources) uterine ablation 10-05-2021 Results Test Name Value Interpretation Reference Range Facility Internal Medicine Office Vis marixa 09-23-2024 Internal Medicine Office Visit [facility] [address] [place] [address] OFFICE VISIT Date of Service: 09/23/24 MR#: [id number] Acct: [id number] Name: ANH EWING Rep #: [id number] : 1955 Provider: Dr. Moni calderón MD Age/Sex: 69/F Location: [facility] [place] Status: Signed Intake Vital Signs 05/19/24 09:45 09/23/24 13:03 Height 5 ft 4 in 5 ft 4 in Weight: 280 lb BMI 48.0 BP 132/68 H Blood Pressure Location Lt brachial Position Sitting Respiration 18 Pulse 66 Pulse Source Monitor Temp 97.8 F Temp Source Temporal Pulse Oximetry (%) 93 Oxygen Delivery Method room air Intake Visit Reasons: 4 M FU Chief Complaint: 4 M FU Is patient in pain?: Yes (7 left elbow/arm) Allergies Sulfa (Sulfonamide Antibiotics) Allergy (Unknown, Verified 05/19/24 09:40) Unknown hydroxychloroquine Allergy (Verified 05/19/24 09:40) Hives tramadol Allergy (Verified 05/19/24 09:40) Itching amlodipine Adverse Reaction (Intermediate, Verified 05/19/24 09:40) Foot and ankle swelling Medications ???Medication ???Instructions ???Recorded ???Confirmed ???Type betamethasone dipropionate 0.05 % 1 applic topical DAILY PRN skin 0 04/12/19 09/23/24 History topical cream Handicap Placard #1 ea 12/20/19 09/23/24 Rx vibegron 75 mg tablet (Gemtesa) 75 mg PO DAILY 01/31/21 09/23/24 H istory Handicap Placard #1 ea 11/21/22 09/23/24 Rx leflunomide 20 mg tablet 20 mg PO DAILY 04/03/23 09/23/24 H istory blood pressure monitor #1 ea 04/17/23 09/23/24 Rx prednisolone acetate 1 % eye 1 drp ophthalmic (eye) ONCE 09/23/24 History drops,suspension fenofibrate 54 mg tablet 54 mg PO DAILY #90 tabs 11/11/23 0 09/23/24 Rx cholecalciferol (vitamin D3) 25 25 mcg PO QDAY 12/17/23 09/23/24 H istory mcg (1,000 unit) capsule hydralazine 25 mg tablet 25 mg PO BID #180 tabs 12/17/23 Rx hydrochlorothiazide 25 mg tablet 25 mg PO DAILY #90 TABLETS 4 09/23/24 Rx valsartan 320 mg tablet 320 mg PO DAILY #90 tabs 12/17/23 09/23/24 Rx atenolol 50 mg tablet 50 mg PO DAILY #90 TABLETS 4 09/23/24 Rx fluticasone fur. 100 mcg-umeclid 1 inh inhalation Q24H #60 ea 02/1709/23/24 Rx 62.5 mcg-vilant 25 mcg inhalat.powder (Trelegy Ellipta) montelukast 10 mg tablet 10 mg PO QPM #90 tabs 02/18/2401/08 Rx (Singulair) gabapentin 100 mg capsule 100 mg PO QDAY 05/19/24 09/23/24 H istory acetaminophen 500 mg capsule 1,000 mg (2 x 500 mg) PO Q8H PRN 0 06/08/24 09/23/24 Rx PRN fever or pain #180 caps apixaban 5 mg tablet 5 mg PO BID 90 days #180 tabs 09/0809/23/24 Rx Have you fallen in the past year?: No PFSH Medical History (Updated 09/23/24 @ 14:[address] Moni Velásquez MD) Osteoarthritis Pruritus Rheumatoid arthritis Upper back pain on right side Flu vaccine need Lumbar radiculopathy Paroxysmal cough Left hip pain Bilateral lower extremity edema Piriformis muscle pain Hypercalcemia Hospital discharge follow-up Pulmonary emboli Dyslipidemia Dyspnea on exertion Preoperative evaluation to rule out surgical contraindication GERD (gastroesophageal reflux disease) Carpal tunnel syndrome, right Bradycardia Health care maintenance Morbid obesity with BMI of 45.0-49.9, adult Bilateral foot pain Right foot pain CKD (chronic kidney disease), stage III Gout Anemia Arthritis History of pneumonia Asthma Adrenal nodule Thyroid nodule Essential hypertension Mixed hyperlipidemia Surgical History History of cornea transplant History of cataract surgery uterine ablation History of tubal ligation History of cholecystectomy Family History Brother Sudden cardiac , Onset Age: 50 Mother Heart disease Father Heart disease Social History Smoking Status: Never smoker alcohol intake: never substance use type: does not use caffeine: Yes Type: coffee Number of servings: 2 HPI HPI Chief Complaint: 4 M FU Details: ANH EWING, is a 69-year-old female presenting with joint pain, pruritus and follow-up of her chronic conditions. She reports significant pain in her left elbow, which began recently and disrupts her sleep. Her arthritis primarily affects her hips, knees, and ankles, with the left ankle being more swollen and painful. Has noted worsening in the morning stiffness of joint pain appears to move around. Follows up with podiatry and the patient has been advised about a potential steroid injection for her ankle pain, but insurance coverage is an issue. She is taking leflunomide for rheumatoid arthritis and also follows up closely with meaghan (more content not included)... Normal [facility] Absolute lymphocyte countOrd ered By: [facility] Anthony on 07-16-2024 Lymphocytes Auto (Unsp spec) [#/Vol] 2.38 10*3/uL 0.83-4.51 [facility] Absolute neutrophil countOrd ered [facility]: [facility]24 Neutrophils (Bld) [#/Vol] 2.0 10*3/uL 2.0-7.7 [facility] Anion gap in Serum or Plasma Ordered By: Andreina Cruz on 07-16-2024 Anion gap [Moles/Vol] 13 mmol/L 5-15 [facility] Automated lymphocyte count a s percentage of total leukocytesOrdered By: [facility] Anthony on 07-16-2024 Lymphocytes/100 WBC Auto (Unsp spec) 44.1 % High 19-41 [facility] BUN/creatinine ratioOrdered By: [facility] 07-16-2024 Urea nitrogen/Creatinine [Mass ratio] 20.0 mg/mg 10-20 [facility] Basophil percentageOrdered B y: Andreina Cruz on 07-16-2024 Basophils/100 WBC (Bld) 1.5 % High 0-1 [facility] Bilirubin, totalOrdered By: [facility] Anthony on 07-16-2024 Bilirubin [Mass/Vol] 0.34 mg/dL 0.00-1.30 [facility] CBC W/Diff, Automatedon Absolute Lymph 2.38 X10 3/uL Normal 0.83-4.51 [facility] Comment on above: Performed By: #### L 500.4050, L100.0100 ####[facility] [address] [place], [address] Absolute Neut 2.0 X10 3/uL Normal 2.0-7.7 [facility] Comment on above: Performed By: #### L [id number], L100.0100 ####[facility] [address] [place], [address] Basophils/100 WBC (Bld) 1.5 % High 0-1 [facility] Comment on above: Performed By: #### L [id number], L100.0100 ####[facility] [address] [place], [address] Eosinophils/100 WBC (Bld) 1.9 % Normal 0-5 [facility] Comment on above: Performed By: #### L [id number], L100.0100 ####[facility] [address] [place], [address] Erythrocyte distribution width (RBC) [Ratio] 14.3 % Normal 11.6-14.6 [facility] Comment on above: Performed By: #### L [id number], L100.0100 ####[facility] [address] [place], [address] Hematocrit (Bld) [Volume fraction] 41.7 % Normal 37-47 [facility] Comment on above: Performed By: #### L [id number], L100.0100 ####[facility] [address] [place], [address] Hemoglobin (Bld) [Mass/Vol] 13.4 g/dL Normal 12.0-15.0 [facility] Comment on above: Performed By: #### L [id number], L100.0100 ####[facility] [address] [place], [address] IG% 0.400 Normal 0.0-0.9 [facility] Comment on above: Result Comment: IG% - Immature Granulocytes (promyelocytes, myelocytes and metamyelocytes) > 1% indicates that a LEFT SHIFT is Present. Performed By: #### L [id number], L100.0100 ####[facility] [address] [place], [address] Lymphocytes/100 WBC (Bld) 44.1 % High 19-41 [facility] Comment on above: Performed By: #### L [id number], L100.0100 ####[facility] [address] [place], [address] MCH (RBC) [Entitic mass] 29.1 pg Normal 27.0-32.0 [facility] Comment on above: Performed By: #### L [id number], L100.0100 ####[facility] [address] [place], [address] MCHC (RBC) [Mass/Vol] 32.1 g/dL Normal 32-36 [facility] Comment on above: Performed By: #### L [id number], [id number] ####[facility] [address] [place], [address] MCV (RBC) [Entitic vol] 90.7 fL Normal 81-99 [facility] Comment on above: Performed By: #### L [id number], [id number] ####[facility] [address] [place], [address] Monocytes/100 WBC (Bld) 15.9 % High 0-10 [facility] Comment on above: Performed By: #### L [id number], L100.0100 ####[facility] [address] [place], [address] Neutrophils/100 WBC (Bld) 36.2 % Low 47-70 [facility] Comment on above: Performed By: #### L [id number], L100.0100 ####[facility] [address] [place], [address] Nucleated RBC (Bld) [#/Vol] 0 10*3/uL Normal 0-5 [facility] Comment on above: Performed By: #### L 500.4050, L100.0100 ####[facility] [address] [place], [address] Platelet mean volume (Bld) [Entitic vol] 10.2 fL Normal 6.2-12.0 [facility] Comment on above: Performed By: #### L 500.4050, L100.0100 ####[facility] [address] [place], [address] Platelets (Bld) [#/Vol] 225 10*3/uL Normal 150-450 [facility] Comment on above: Performed By: #### L 500.4050, L100.0100 ####[facility] [address] [place], [address] RBC (Bld) [#/Vol] 4.60 10*6/uL Normal 4.2-5.4 [facility] Comment on above: Performed By: #### L 500.4050, L100.0100 ####[facility] [address] [place], [address] RDW SD 47.5 fl High 35.1-43.9 [facility] Comment on above: Performed By: #### L 500.4050, L100.0100 ####[facility] [address] [place], [address] WBC (Bld) [#/Vol] 5.4 10*3/uL Normal 4.4-11.0 [facility] Comment on above: Performed By: #### L 500.4050, L100.0100 ####[facility] [address] [place], [address] Carbon dioxide, total [Moles /volume] in Central venous bloodOrdered By: Andreina Cruz on 07-16-2024 CO2 [Moles/Vol] 22.3 mmol/L 21.0-32.0 [facility] Chloride assayOrdered By: Marielos Cruz on 07-16-2024 Chloride [Moles/Vol] 104 mmol/L 98-108 [facility] Comprehensive Metabolic Prof ilon 07-16-2024 Albumin [Mass/Vol] 3.7 g/dL Normal 3.4-4.8 [facility] Comment on above: Performed By: #### L 500.4050, L100.0100 ####[facility] [address] [place], [address] Albumin/Globulin [Mass ratio] 1.2 {ratio} Normal 0.9-2.4 [facility] Comment on above: Performed By: #### L 500.4050, L100.0100 ####[facility] [address] [place], [address] ALK PHOS 81 U/L Normal 35-104 [facility] Comment on above: Performed By: #### L 500.4050, L100.0100 ####[facility] [address] [place], [address] ALT [Catalytic activity/Vol] 17 U/L Normal <=34 [facility] Comment on above: Performed By: #### L 500.4050, L100.0100 ####[facility] [address] [place], [address] AST [Catalytic activity/Vol] 25 U/L Normal <=31 [facility] Comment on above: Performed By: #### L 500.4050, L100.0100 ####[facility] [address] [place], [address] Bilirubin [Mass/Vol] 0.34 mg/dL Normal 0.00-1.30 [facility] Comment on above: Performed By: #### L 500.4050, L100.0100 ####[facility] [address] [place], [address] BUN/CRE 20.0 RATIO Normal 10-20 [facility] Comment on above: Performed By: #### L 500.4050, L100.0100 ####[facility] [address] [place], [address] Calcium [Mass/Vol] 9.9 mg/dL Normal 7.6-11.0 [facility] Comment on above: Performed By: #### L 500.4050, L100.0100 ####[facility] [address] [place], [address] Chloride [Moles/Vol] 104 mmol/L Normal 98-108 [facility] Comment on above: Performed By: #### L 500.4050, L100.0100 ####[facility] [address] [place], [address] CO2 [Moles/Vol] 22.3 mmol/L Normal 21.0-32.0 [facility] Comment on above: Performed By: #### L 500.4050, L100.0100 ####[facility] [address] [place], [address] Creatinine [Mass/Vol] 1.15 mg/dL Normal 0.70-1.20 [facility] Comment on above: Performed By: #### L 500.4050, L100.0100 ####[facility] [address] [place], [address] GAP 13 Normal 5-15 [facility] Comment on above: Performed By: #### L 500.4050, L100.0100 ####[facility] [address] [place], [address] GFR/1.73 sq M.predicted among non-blacks MDRD (S/P/Bld) [Vol rate/Area] 52 mL/min/{1.73_m2} Low >60 [facility] Comment on above: Result Comment: mL/m in/1.73m2 CKD-EPI Creatinine Equation (2020) Performed By: #### L 500.4050, L100.0100 ####[facility] [address] [place], [address] Globulin (S) [Mass/Vol] 3.1 g/dL Normal 2.2-4.2 [facility] Comment on above: Performed By: #### L 500.4050, L100.0100 ####[facility] [address] [place], [address] Glucose [Mass/Vol] 107 mg/dL High 70-99 [facility] Comment on above: Performed By: #### L 500.4050, L100.0100 ####[facility] [address] [place], [address] Potassium [Moles/Vol] 4.0 mmol/L Normal 3.3-5.1 [facility] Comment on above: Performed By: #### L 500.4050, L100.0100 ####[facility] [address] [place], [address] Sodium [Moles/Vol] 139 mmol/L Normal 133-145 [facility] Comment on above: Performed By: #### L 500.4050, L100.0100 ####[facility] [address] [place], [address] T PROT 6.7 g/dL Normal 5.9-8.4 [facility] Comment on above: Performed By: #### L 500.4050, L100.0100 ####[facility] [address] [place], [address] Urea nitrogen [Mass/Vol] 23 mg/dL High 4-19 [facility] Comment on above: Performed By: #### L 500.4050, L100.0100 ####[facility] [address] [place], [address] Eosinophil percentageOrdered By: Andreina Cruz on 07-16-2024 Eosinophils/100 WBC (Bld) 1.9 % 0-5 [facility] Erythrocyte distribution wid th ratioOrdered By: Andreina Cruz on 07-16-2024 Erythrocyte distribution width (RBC) [Ratio] 14.3 % 11.6-14.6 [facility] Erythrocyte distribution wid th standard deviationOrdered By: Andreina Cruz on 07-16-2024 Erythrocyte distribution width (RBC) [Ratio] 47.5 fl High 35.1-43.9 [facility] Glomerular filtration rate ( GFR) estimation/1.73 sq m using serum, plasma, or whole bOrdered By: Andreina Cruz on 07-16-2024 GFR/1.73 sq M.predicted among non-blacks MDRD (S/P/Bld) [Vol rate/Area] 52 mL/min/{1.73_m2} Low >60 [facility] Comment on above: mL/min/1.73m2 CKD-EP I Creatinine Equation (2020) Hematocrit Auto (Bld) [Volum e fraction]Ordered By: Andreina Cruz on 07-16-2024 Hematocrit (Bld) [Volume fraction] 41.7 % 37-47 [facility] Hemoglobin measurementOrdere d By: Andreina Cruz on 07-16-2024 Hemoglobin (Bld) [Mass/Vol] 13.4 g/dL 12.0-15.0 [facility] Immature granulocytes/100 WB C Auto (Bld)Ordered By: Andreina Cruz on 07-16-2024 Immature granulocytes/100 WBC (Bld) 0.400 % 0.0-0.9 [facility] Comment on above: IG% - Immature Granu locytes (promyelocytes, myelocytes and metamyelocytes) > 1% indicates that a LEFT SHIFT is Present. Laboratory - Chemistry and C hemistry - challengeOrdered By: Andreina Cruz on 07-16-2024 AST [Catalytic activity/Vol] 25 U/L <32 [facility] MCV (mean corpuscular volume ) determinationOrdered By: Andreina Cruz on 07-16-2024 MCV (RBC) [Entitic vol] 90.7 fL 81-99 [facility] Mean corpuscular hemoglobin (MCH) determinationOrdered By: Andreina Cruz on 07-16-2024 MCH (RBC) [Entitic mass] 29.1 pg 27.0-32.0 [facility] Mean corpuscular hemoglobin concentration (MCHC) determinationOrdered By: Andreina Cruz on 07-16-2024 MCHC (RBC) [Mass/Vol] 32.1 g/dL 32-36 [facility] Mean platelet volume determi nationOrdered By: Andreina Cruz on 07-16-2024 Platelet mean volume (Bld) [Entitic vol] 10.2 fL 6.2-12.0 [facility] Monocyte percentageOrdered B y: Andreina Cruz on 07-16-2024 Monocytes/100 WBC (Bld) 15.9 % High 0-10 [facility] Neutrophil percentageOrdered By: Andreina Cruz on 07-16-2024 Neutrophils/100 WBC (Bld) 36.2 % Low 47-70 [facility] Nucleated red blood cell per centageOrdered By: Andreina Cruz on 07-16-2024 Nucleated RBC/100 WBC (Bld) [Ratio] 0 % 0-5 [facility] Platelet countOrdered By: Marielos Cruz on 07-16-2024 Platelets (Bld) [#/Vol] 225 10*3/uL 150-450 [facility] Potassium measurement (mass/ volume)Ordered By: Andreina Cruz on 07-16-2024 Potassium (Unsp spec) [Mass/Vol] 4.0 mmol/L 3.3-5.1 [facility] RBC Auto (Bld) [#/Vol]Ordere d By: Andreina Cruz on 07-16-2024 RBC (Bld) [#/Vol] 4.60 10*6/uL 4.2-5.4 [facility] Serum creatinine measurement (mass/volume)Ordered By: Andreina Cruz on 07-16-2024 Creatinine [Mass/Vol] 1.15 mg/dL 0.70-1.20 [facility] Serum globulin measurementOr dered By: Andreina Cruz on 07-16-2024 Globulin (S) [Mass/Vol] 3.1 g/dL 2.2-4.2 [facility] Serum glucose measurement (m ass/volume)Ordered By: Andreina Cruz on 07-16-2024 Glucose [Mass/Vol] 107 mg/dL High 70-99 [facility] Serum or plasma alanine rees otransferase (ALT) measurementOrdered By: Andreina Cruz on 07-16-2024 ALT [Catalytic activity/Vol] 17 U/L <35 [facility] Serum or plasma albumin griffin urement (mass/volume)Ordered By: Andreina Cruz on 07-16-2024 Albumin [Mass/Vol] 3.7 g/dL 3.4-4.8 [facility] Serum or plasma albumin/glob ulin mass ratioOrdered By: Andreina Cruz on 07-16-2024 Albumin/Globulin [Mass ratio] 1.2 {ratio} 0.9-2.4 [facility] Serum or plasma alkaline perez sphatase measurementOrdered By: Andreina Cruz on 07-16-2024 ALP [Catalytic activity/Vol] 81 U/L 35-104 [facility] Serum or plasma calcium griffin urement (mass/volume)Ordered By: Andreina Cruz on 07-16-2024 Calcium [Mass/Vol] 9.9 mg/dL 7.6-11.0 [facility] Serum or plasma urea nitroge n measurement (mass/volume)Ordered By: Andreina Cruz on 07-16-2024 Urea nitrogen [Mass/Vol] 23 mg/dL High 4-19 [facility] Sodium levelOrdered By: Jerzy Cruz on 07-16-2024 Sodium [Moles/Vol] 139 mmol/L 133-145 [facility] Total proteinOrdered By: Denise Cruz on 07-16-2024 Protein [Mass/Vol] 6.7 g/dL 5.9-8.4 [facility] White blood cell (WBC) count Ordered By: Andreina Cruz on 07-16-2024 WBC (Bld) [#/Vol] 5.4 10*3/uL 4.4-11.0 [facility] Bone density reportOrdered B y: Mey Crow on 06-11-2024 Study report Skeletal system DXA [facility] Imaging Services [address] [place] [address] Dexa Bone Density Study MR#: [id number] Acct: [id number] Name: ANH EWING Rep #: [id number] : 1955 F 69 From: Giuseppe Crow DO PCP: Dr. Moni Velásquez MD Status: R EG CLI Study:Dexa Bone Density Study Date of Exam: 06/10/24 Exam# [id number] Ordering Dr: Mary Velásquez MD EXAM: DEXA BONE DENSITY STUDY 06/10/2024 REASON FOR EXAM: POST MENOPAUSAL F,69 y/o patient is postmenopausal. TECHNIQUE: DXA scan of the lumbar spine and total body less head, using make and model. REFERENCE LINKS: ISCD Pediatric Positions ISCD Adult Positions COMPARISON: None. FINDINGS: BMD and Z-SCORES DEXA examination of lumbar spine shows a bone mineral density measures 0.978 grams/centimeter squared. T-score measures -0.6 and Z-score measures 1.4. There has been a significant increase in the bone mineraldensity of the lumbar spine by 3.4% since the prior study dated 06/20/2021. DEXA examination left femoral neck shows a bone mineral density measures 0.771 grams/centimeter squared. T-score measures -0.7 and Z-score measures 1.1. Total bone mineral density of the left hip measures 0.944 grams/centimeter squared. T-score measures 0 and Z-score measures 1.5. There has been a decrease in the bone mineral density of the left hip by 1.7% since the prior study dated 06/20/2021. DEXA examination of the right femoral neck shows a bone mineral density measures0.777 grams/centimeter squared. T-score measures -0.6 and Z-score measures 1.1. Total bone mineral density of the righthip measures 1.029 grams/centimeter squared. T-score measures 0.7 and Z-score measures 2.2. There has been an increase in the bone mineral density of the right hip by 2.6% since the prior study dated 06/20/2021. Fracture Risk Calculation: FRAX (10-year Fracture Risk) Score: 10 year fracture risk index for major osteoporotic fracture is 17% and for hip fracture is 1.4%. BD/Dexa Bone Density Study IMPRESSION: Patient demonstrates normal bone mineral density of the lumbar spine and both hips. Recommend follow-up, if clinically warranted. Reading Location: [id number] CC: Dr. Moni Velásquez MD ~ Statistical Consultant: Signed [facility] Breast imaging reportOrdered By: Mey Crow on 06-11-2024 Study report [facility] Imaging Services [address] [place] [id number] SCRN MAMM (CAD)W/CLAUDETTE BILAT MR#: [id number] Acct: [id number] Name: ANH EWING Rep #: [id number] : 1955 F 69 From: Giuseppe Crow DO PCP: Dr. Moni Velásquez MD Status: R EG CLI Study:SCRN MAMM (CAD)W/CLAUDETTE BILAT Date of Exa m: 06/10/24 Exam# [id number] Ordering Dr: Mary Velásquez MD EXAM: SCRN MAMM (CAD)W/CLAUDETTE BILAT DATE: 06/10/2024 CLINICAL HISTORY: F, Age 69 y/o , BREAST CANCER SCREENING BREAST CANCER RISK ASSESSMENT: Does not appear to have been calculated. TECHNIQUE: Bilateral screening digital breast tomosynthesis with 2D and 3D images. Computeraided detection. COMPARISON: Prior exam(s) dated . FINDINGS: TISSUE DENSITY: The breast tissue is almost entirely fatty. Bilateral Breast Mammographic Findings: There are no suspicious masses, suspicious clustered microcalcifications, architectural distortion or secondary signs of malignancy identified in either breast. Benign round microcalcifications are seen in both breasts. BI/SCRN MAMM (CAD)W/CLAUDETTE BILAT IMPRESSION: Right Breast: BIRADS 2 BENIGN FINDING. Left Breast: BIRADS 2 BENIGN FINDING. OVERALL FINAL ASSESSMENT: BIRADS 2 BENIGN FINDING RECOMMENDATION: Routine annual follow-up in 1 Year A letter with findings and recommendations will be mailed to the patient. Reading Location: [id number] CC: Dr. Moni Velásquez MD ~ Statistical Consultant: Signed [facility] Dexa Bone Density Studyon Dexa Bone Density Study [facility] Imaging Services [address] [place] [address] [id number] Dexa Bone Density Study MR#: [id number] Acct: [id number] Name: ANH EWING Rep #: [id number] : 1955 F 69 From: Mey Romero O PCP: Dr. Moni Velásquez MD Status: REG CLI Study: Dexa Bone Density Study Date of Exam: 06/10/24 Exam# [id number] Ordering Dr: Moni Velásquez MD EXAM: DEXA BONE DENSITY STUDY 06/10/2024 REASON FOR EXAM: POST MENOPAUSAL F,69 y/o patient is postmenopausal. TECHNIQUE: DXA scan of the lumbar spine and total body less head, using make and model. REFERENCE LINKS: ISCD Pediatric Positions ISCD Adult Positions COMPARISON: None. FINDINGS: BMD and Z-SCORES DEXA examination of lumbar spine shows a bone mineral density measures 0.978 grams/centimeter squared. T-score measures -0.6 and Z-score measures 1.4. There has been a significant increase in the bone mineral density of the lumbar spine by 3.4% since the prior study dated 06/20/2021. DEXA examination left femoral neck shows a bone mineral density measures 0.771 grams/centimeter squared. T-score measures -0.7 and Z-score measures 1.1. Total bone mineral density of the left hip measures 0.944 grams/centimeter squared. T-score measures 0 and Z-score measures 1.5. There has been a decrease in the bone mineral density of the left hip by 1.7% since the prior study dated 06/20/2021. DEXA examination of the right femoral neck shows a bone mineral density measures 0.777 grams/centimeter squared. T-score measures -0.6 and Z-score measures 1.1. Total bone mineral density of the right hip measures 1.029 grams/centimeter squared. T-score measures 0.7 and Z-score measures 2.2. There has been an increase in the bone mineral density of the right hip by 2.6% since the prior study dated 06/20/2021. Fracture Risk Calculation: FRAX (10-year Fracture Risk) Score: 10 year fracture risk index for major osteoporotic fracture is 17% and for hip fracture is 1.4%. BD/Dexa Bone Density Study IMPRESSION: Patient demonstrates normal bone mineral density of the lumbar spine and both hips. Recommend follow-up, if clinically warranted. Reading Location: [id number] CC: Dr. Moni Velásquez MD Statistical Consultant: Signed Normal [facility] SCRN MAMM (CAD)W/CLAUDETTE BILATo n 06-10-2024 SCRN MAMM (CAD)W/CLAUDETTE BILAT [facility] Imaging Services [address] [place], [place] [id number] SCRN MAMM (CAD)W/CLAUDETTE BILAT MR#: [id number] Acct: [id number] Name: TAWNYALETICIAANHCEE SCHAEFER Rep #: [id number] : 1955 F 69 From: Mey Mcdonough PCP: Dr. Moni Velásquez MD Status: [facility] CLI Study: SCRN MAMM (CAD)W/CLAUDETTE BILAT Date of Exam: 05/16 10/08 Exam# [id number] Ordering Dr: Moni Velásquez MD EXAM: SCRN MAMM (CAD)W/CLAUDETTE BILAT DATE: 06/10/2024 CLINICAL HISTORY: F, Age 69 y/o , BREAST CANCER SCREENING BREAST CANCER RISK ASSESSMENT: Does not appear to have been calculated. TECHNIQUE: Bilateral screening digital breast tomosynthesis with 2D and 3D images. Computer aided detection. COMPARISON: Prior exam(s) dated . FINDINGS: TISSUE DENSITY: The breast tissue is almost entirely fatty. Bilateral Breast Mammographic Findings: There are no suspicious masses, suspicious clustered microcalcifications, architectural distortion or secondary signs of malignancy identified in either breast. Benign round microcalcifications are seen in both breasts. BI/SCRN MAMM (CAD)W/CLAUDETTE BILAT IMPRESSION: Right Breast: BIRADS 2 BENIGN FINDING. Left Breast: BIRADS 2 BENIGN FINDING. OVERALL FINAL ASSESSMENT: BIRADS 2 BENIGN FINDING RECOMMENDATION: Routine annual follow-up in 1 Year A letter with findings and recommendations will be mailed to the patient. Reading Location: [id number] CC: Dr. Moni Velásquez MD Statistical Consultant: Signed Normal [facility] Internal Medicine Office Vis ito 05-19-2024 Internal Medicine Office Visit [facility] [place] [address] [place] [address] OFFICE VISIT Date of Service: 05/19/24 MR#: [id number] Acct: [id number] Name: ANH EWING Rep #: [id number] : 1955 Provider: Dr. Moni calderón MD Age/Sex: 69/F Location: [facility] Status: Signed Intake Vital Signs 02/18/24 09:48 05/19/24 09:45 Height 5 ft 4 in 5 ft 4 in Weight: 283 lb BMI 48.5 BP 128/74 H Blood Pressure Location Lt brachial Position Sitting Respiration 16 Pulse 59 L Pulse Source Monitor Temp 96.2 F L Temp Source Temporal Pulse Oximetry (%) 95 Oxygen Delivery Method room air Intake Visit Reasons: 3 M FU Chief Complaint: Follow-up chronic conditions Biomedical Engineering Technologist Required: No Accompanied by: Self Is patient in pain?: Yes (mid back under arm pit right sided ) Allergies Sulfa (Sulfonamide Antibiotics) Allergy (Unknown, Verified 05/19/24 09:40) Unknown hydroxychloroquine Allergy (Verified 05/19/24 09:40) Hives tramadol Allergy (Verified 05/19/24 09:40) Itching amlodipine Adverse Reaction (Intermediate, Verified 05/19/24 09:40) Foot and ankle swelling Medications ???Medication ???Instructions ???Recorded ???Confirmed ???Type betamethasone dipropionate 0.05 % 1 applic topical DAILY PRN skin 0 04/12/19 05/19/24 History topical cream Handicap Placard #1 ea 12/20/19 02/18/24 Rx vibegron 75 mg tablet (Gemtesa) 75 mg PO DAILY 01/31/21 05/19/24 H istory Handicap Placard #1 ea 11/21/22 02/18/24 Rx leflunomide 20 mg tablet 20 mg PO DAILY 04/03/23 05/19/24 H istory blood pressure monitor #1 ea 04/17/23 02/18/24 Rx prednisolone acetate 1 % eye 1 drp ophthalmic (eye) ONCE 05/19/24 History drops,suspension acetaminophen 500 mg capsule 1,000 mg (2 x 500 mg) PO Q8H PRN 0 08/22/23 05/19/24 Rx PRN fever or pain #180 caps tizanidine 4 mg capsule 4 mg PO TID PRN 08/22/23 05/19/24 History fenofibrate 54 mg tablet 54 mg PO DAILY #90 tabs 11/11/23 0 05/19/24 Rx cholecalciferol (vitamin D3) 25 25 mcg PO QDAY 12/17/23 05/19/24 H istory mcg (1,000 unit) capsule hydralazine 25 mg tablet 25 mg PO BID #180 tabs 12/17/23 Rx hydrochlorothiazide 25 mg tablet 25 mg PO DAILY #90 TABLETS 4 05/19/24 Rx valsartan 320 mg tablet 320 mg PO DAILY #90 tabs 12/17/23 05/19/24 Rx atenolol 50 mg tablet 50 mg PO DAILY #90 TABLETS 4 05/19/24 Rx fluticasone fur. 100 mcg-umeclid 1 inh inhalation Q24H #60 ea 02/1705/19/24 Rx 62.5 mcg-vilant 25 mcg inhalat.powder (Trelegy Ellipta) montelukast 10 mg tablet 10 mg PO QPM #90 tabs 02/18/2408/08 Rx (Singulair) apixaban 5 mg tablet 5 mg PO BID 90 days #180 tabs 02/1505/19/24 Rx gabapentin 100 mg capsule 100 mg PO QDAY 05/19/24 05/19/24 H istory Have you fallen in the past year?: No PFSH Medical History (Updated 05/19/24 @ 13:[address] Moni Velásquez MD) Upper back pain on right side Flu vaccine need Lumbar radiculopathy Paroxysmal cough Left hip pain Bilateral lower extremity edema Piriformis muscle pain Hypercalcemia Hospital discharge follow-up Pulmonary emboli Dyslipidemia Dyspnea on exertion Preoperative evaluation to rule out surgical contraindication GERD (gastroesophageal reflux disease) Carpal tunnel syndrome, right Bradycardia Health care maintenance Morbid obesity with BMI of 45.0-49.9, adult Osteoarthritis Bilateral foot pain Right foot pain CKD (chronic kidney disease), stage III Gout Anemia Arthritis History of pneumonia Asthma Adrenal nodule Thyroid nodule Essential hypertension Mixed hyperlipidemia Surgical History History of cornea transplant History of cataract surgery uterine ablation History of tubal ligation History of cholecystectomy Family History Brother Sudden cardiac , Onset Age: 50 Mother Heart disease Father Heart disease Social History Smoking Status: Never smoker alcohol intake: never substance use type: does not use caffeine: Yes Type: coffee Number of servings: 2 HPI HPI Chief Complaint: Follow-up chronic conditions Details: ANH EWING, is a 69 F who presents to the office today for follow-up of her chronic conditions. Also has some concerns. She reports right-sided upper back pain which has been ongoing for a few weeks. No known precipitating factor. Worse with certain movements and at night. No cough, difficulty breathing respiratory concerns reported History of hypertension, blood pressure today at 128/74 mmHg. Currently on hydralazine, valsartan and hydrochlorothiazide which she is taking consistently. No juan (more content not included)... Normal [facility] Intact parathyroid hormone ( iPTH) measurementOrdered By: Andreina Cruz on 04-26-2024 Parathyroid Hormone (Intact) 73.8 pg/mL 18.4-80.1 [facility] PTHINon 04-26-2024 PTH 73.8 pg/mL Normal 18.4-80.1 [facility] Comment on above: Performed By: #### L 509.1000 ####[facility] [address] [place], [address] Absolute lymphocyte countOrd ered By: Andreina Cruz on 04-23-2024 Lymphocytes Auto (Unsp spec) [#/Vol] 2.61 10*3/uL 0.83-4.51 [facility] Absolute neutrophil countOrd ered By: Andreina Cruz on 04-23-2024 Neutrophils (Bld) [#/Vol] 2.1 10*3/uL 2.0-7.7 [facility] Albumin to globulin ratioOrd ered By: Andreina Cruz on 04-23-2024 Albumin/Globulin [Mass ratio] 0.8 {ratio} Low 0.9-2.4 [facility] Automated lymphocyte count a s percentage of total leukocytesOrdered By: Andreina Cruz on 04-23-2024 Lymphocytes/100 WBC Auto (Unsp spec) 46.9 % High 19-41 [facility] Basophil percentageOrdered B y: Andreina Cruz on 04-23-2024 Basophils/100 WBC (Bld) 1.4 % High 0-1 [facility] Bilirubin, totalOrdered By: Andreina Cruz on 04-23-2024 Bilirubin [Mass/Vol] 0.50 mg/dL 0.20-1.00 [facility] Comment on above: For patients on eltr ombopag therapy, use of Dimension Opp TBIL is not recommended. Blood urea nitrogen (BUN)/cr eatinine ratioOrdered By: Andreina Cruz on 04-23-2024 Urea nitrogen/Creatinine [Mass ratio] 22.0 mg/mg High 10-20 [facility] CBC W/Diff, Automatedon Absolute Lymph 2.61 X10 3/uL Normal 0.83-4.51 [facility] Comment on above: Performed By: #### L 100.0100, L500.4050 ####[facility] [address] [place], [address] Absolute Neut 2.1 X10 3/uL Normal 2.0-7.7 [facility] Comment on above: Performed By: #### L 100.0100, L500.4050 ####[facility] [address] [place], [address] Basophils/100 WBC (Bld) 1.4 % High 0-1 [facility] Comment on above: Performed By: #### L 100.0100, L500.4050 ####[facility] [address] [place], [address] Eosinophils/100 WBC (Bld) 1.8 % Normal 0-5 [facility] Comment on above: Performed By: #### L 100.0100, L500.4050 ####[facility] [address] [place], [address] Erythrocyte distribution width (RBC) [Ratio] 14.3 % Normal 11.6-14.6 [facility] Comment on above: Performed By: #### L 100.0100, L500.4050 ####[facility] [address] [place], [address] Hematocrit (Bld) [Volume fraction] 42.5 % Normal 37-47 [facility] Comment on above: Performed By: #### L 100.0100, L500.4050 ####[facility] [address] [place], [address] Hemoglobin (Bld) [Mass/Vol] 13.1 g/dL Normal 12.0-15.0 [facility] Comment on above: Performed By: #### L 100.0100, L500.4050 ####[facility] [address] [place], [address] IG% 0.400 Normal 0.0-0.9 [facility] Comment on above: Result Comment: IG% - Immature Granulocytes (promyelocytes, myelocytes and metamyelocytes) > 1% indicates that a LEFT SHIFT is Present. Performed By: #### L 100.0100, L500.4050 ####[facility] [address] [place], [address] Lymphocytes/100 WBC (Bld) 46.9 % High 19-41 [facility] Comment on above: Performed By: #### L 100.0100, L500.4050 ####[facility] [address] [place], [address] MCH (RBC) [Entitic mass] 28.2 pg Normal 27.0-32.0 [facility] Comment on above: Performed By: #### L 100.0100, L500.4050 ####[facility] [address] [place], [address] MCHC (RBC) [Mass/Vol] 30.8 g/dL Low 32-36 [facility] Comment on above: Performed By: #### L 100.0100, L500.4050 ####[facility] [address] [place], [address] MCV (RBC) [Entitic vol] 91.6 fL Normal 81-99 [facility] Comment on above: Performed By: #### L 100.0100, L500.4050 ####[facility] [address] [place], [address] Monocytes/100 WBC (Bld) 11.3 % High 0-10 [facility] Comment on above: Performed By: #### L 100.0100, L500.4050 ####[facility] [address] [place], [address] Neutrophils/100 WBC (Bld) 38.2 % Low 47-70 [facility] Comment on above: Performed By: #### L 100.0100, L500.4050 ####[facility] [address] [place], [address] Nucleated RBC (Bld) [#/Vol] 0 10*3/uL Normal 0-5 [facility] Comment on above: Performed By: #### L 100.0100, L500.4050 ####[facility] [address] [place], [address] Platelet mean volume (Bld) [Entitic vol] 9.8 fL Normal 6.2-12.0 [facility] Comment on above: Performed By: #### L 100.0100, L500.4050 ####[facility] [address] [place], [address] Platelets (Bld) [#/Vol] 247 10*3/uL Normal 150-450 [facility] Comment on above: Performed By: #### L 100.0100, L500.4050 ####[facility] [address] [place], [address] RBC (Bld) [#/Vol] 4.64 10*6/uL Normal 4.2-5.4 [facility] Comment on above: Performed By: #### L 100.0100, L500.4050 ####[facility] [address] [place], [address] RDW SD 48.4 fl High 35.1-43.9 [facility] Comment on above: Performed By: #### L 100.0100, L500.4050 ####[facility] [address] [place], [address] WBC (Bld) [#/Vol] 5.6 10*3/uL Normal 4.4-11.0 [facility] Comment on above: Performed By: #### L 100.0100, L500.4050 ####[facility] [address] [place], [address] Carbon dioxide measurementOr dered By: Andreina Cruz on 04-23-2024 CO2 [Moles/Vol] 25.0 mmol/L 21.0-32.0 [facility] Chloride measurementOrdered By: Andreina Cruz on 04-23-2024 Chloride [Moles/Vol] 106 mmol/L 98-107 [facility] Comprehensive Metabolic Prof ilon 04-23-2024 Albumin [Mass/Vol] 3.1 g/dL Low 3.2-5.0 [facility] Comment on above: Performed By: #### L 100.0100, L500.4050 ####[facility] [address] [place], [address] Albumin/Globulin [Mass ratio] 0.8 {ratio} Low 0.9-2.4 [facility] Comment on above: Performed By: #### L 100.0100, L500.4050 ####[facility] [address] [place], [address] ALK P 76 U/L Normal 45-117 [facility] Comment on above: Performed By: #### L 100.0100, L500.4050 ####[facility] [address] [place], [address] ALT [Catalytic activity/Vol] 20 U/L Normal 13-56 [facility] Comment on above: Performed By: #### L 100.0100, L500.4050 ####[facility] [address] [place], [address] AST [Catalytic activity/Vol] 20 U/L Normal 15-37 [facility] Comment on above: Performed By: #### L 100.0100, L500.4050 ####[facility] [address] [place], [address] Bilirubin [Mass/Vol] 0.50 mg/dL Normal 0.20-1.00 [facility] Comment on above: Result Comment: For patients on eltrombopag therapy, use of Dimension Opp TBIL is not recommended. Performed By: #### L 100.0100, L500.4050 ####[facility] [address] [place], [address] BUN/CRE 22.0 RATIO High 10-20 [facility] Comment on above: Performed By: #### L 100.0100, L500.4050 ####[facility] [address] [place], [address] CA,Total 10.3 mg/dL High 8.5-10.1 [facility] Comment on above: Performed By: #### L 100.0100, L500.4050 ####[facility] [address] [place], [address] Chloride [Moles/Vol] 106 mmol/L Normal 98-107 [facility] Comment on above: Performed By: #### L 100.0100, L500.4050 ####[facility] [address] [place], [address] CO2 [Moles/Vol] 25.0 mmol/L Normal 21.0-32.0 [facility] Comment on above: Performed By: #### L 100.0100, L500.4050 ####[facility] [address] [place], [address] Creatinine [Mass/Vol] 1.09 mg/dL High 0.55-1.02 [facility] Comment on above: Result Comment: The validity of the calculated GFR GFRAA in patients over 70 years has not been determined. Clinical correlation is essential. Performed By: #### L 100.0100, L500.4050 ####[facility] [address] [place], [address] EST GFR - AA 64 mL/min Normal >60 [facility] Comment on above: Result Comment: Afri can [place] GFR Calc Performed By: #### L 100.0100, L500.4050 ####[facility] [address] [place], [address] GAP 7 Normal 5-15 [facility] Comment on above: Performed By: #### L 100.0100, L500.4050 ####[facility] [address] [place], [address] GFR/1.73 sq M.predicted among non-blacks MDRD (S/P/Bld) [Vol rate/Area] 53 mL/min/{1.73_m2} Low >60 [facility] Comment on above: Result Comment: Non- GFR Calc Performed By: #### L 100.0100, L500.4050 ####[facility] [address] [place], [address] Globulin (S) [Mass/Vol] 3.9 g/dL Normal 2.2-4.2 [facility] Comment on above: Performed By: #### L 100.0100, L500.4050 ####[facility] [address] [place], [address] Glucose [Mass/Vol] 108 mg/dL High 74-106 [facility] Comment on above: Result Comment: Fast ing Glucose result from 100 to 125 mg/dL suggests IMPAIRED HOMEOSTASIS per A.D.A. criteria. Performed By: #### L 100.0100, L500.4050 ####[facility] [address] [place], [address] Potassium [Moles/Vol] 3.8 mmol/L Normal 3.5-5.1 [facility] Comment on above: Performed By: #### L 100.0100, L500.4050 ####[facility] [address] [place], [address] Sodium [Moles/Vol] 139 mmol/L Normal 136-145 [facility] Comment on above: Performed By: #### L 100.0100, L500.4050 ####[facility] [address] [place], [address] T PROT 7.0 g/dL Normal 6.4-8.2 [facility] Comment on above: Performed By: #### L 100.0100, L500.4050 ####[facility] [address] [place], [address] Urea nitrogen [Mass/Vol] 24 mg/dL High 7-18 [facility] Comment on above: Performed By: #### L 100.0100, L500.4050 ####[facility] [address] [place], [address] Eosinophil percentageOrdered By: Andreina Cruz on 04-23-2024 Eosinophils/100 WBC (Bld) 1.8 % 0-5 [facility] Erythrocyte distribution wid th ratioOrdered By: Andreinaalla Cruz on 04-23-2024 Erythrocyte distribution width (RBC) [Ratio] 14.3 % 11.6-14.6 [facility] Erythrocyte distribution wid th standard deviationOrdered By: Andreina Cruz on 04-23-2024 Erythrocyte distribution width (RBC) [Entitic vol] 48.4 fL High 35.1-43.9 [facility] Erythrocyte distribution width (RBC) [Ratio] 48.4 fl High 35.1-43.9 [facility] Estimated glomerular filtrat ion rate (GFR) AmericanOrdered By: Andreina Cruz on 04-23-2024 Estimated GFR (MDRD) Amer 64 mL/min >60 [facility] Comment on above: GFR Calc Glomerular filtration rate ( GFR) estimationOrdered By: Andreina Cruz on 04-23-2024 Estimated GFR (MDRD) Non-Af Amer 53 mL/min Low >60 [facility] Comment on above: Non- GFR Calc GFR/1.73 sq M.predicted among non-blacks MDRD (S/P/Bld) [Vol rate/Area] 53 mL/min/{1.73_m2} Low >60 [facility] Comment on above: Non- GFR Calc Glucose measurementOrdered B y: Andreina Cruz on 04-23-2024 Glucose [Mass/Vol] 108 mg/dL High 74-106 [facility] Comment on above: Fasting Glucose resu lt from 100 to 125 mg/dL suggests IMPAIRED HOMEOSTASIS per A.D.A. criteria. Hematocrit Auto (Bld) [Volum e fraction]Ordered By: Andreina Cruz on 04-23-2024 Hematocrit (Bld) [Volume fraction] 42.5 % 37-47 [facility] Hemoglobin measurementOrdere d By: Andreina Cruz on 04-23-2024 Hemoglobin (Bld) [Mass/Vol] 13.1 g/dL 12.0-15.0 [facility] Immature granulocytes/100 WB C Auto (Bld)Ordered By: Andreina Cruz on 04-23-2024 Immature granulocytes/100 WBC (Bld) 0.400 % 0.0-0.9 [facility] Comment on above: IG% - Immature Granu locytes (promyelocytes, myelocytes and metamyelocytes) > 1% indicates that a LEFT SHIFT is Present. Laboratory - Chemistry and C hemistry - challengeOrdered By: Andreina Cruz on 04-23-2024 AST [Catalytic activity/Vol] 20 U/L 15-37 [facility] Lymphocytes Auto (Unsp spec) [#/Vol]Ordered By: Andreina Cruz on 04-23-2024 Lymphocytes (Bld) [#/Vol] 2.61 10*3/uL 0.83-4.51 [facility] Lymphocytes/100 WBC Auto (Un sp spec)Ordered By: Andreina Cruz on 04-23-2024 Lymphocytes/100 WBC (Bld) 46.9 % High 19-41 [facility] MCV (mean corpuscular volume ) determinationOrdered By: Andreina Cruz on 04-23-2024 MCV (RBC) [Entitic vol] 91.6 fL 81-99 [facility] Mean corpuscular hemoglobin (MCH) determinationOrdered By: Andreina Cruz on 04-23-2024 MCH (RBC) [Entitic mass] 28.2 pg 27.0-32.0 [facility] Mean corpuscular hemoglobin concentration (MCHC) determinationOrdered By: Andreina Cruz on 04-23-2024 MCHC (RBC) [Mass/Vol] 30.8 g/dL Low 32-36 [facility] Mean platelet volume determi nationOrdered By: Andreina Cruz on 04-23-2024 Platelet mean volume (Bld) [Entitic vol] 9.8 fL 6.2-12.0 [facility] Monocyte percentageOrdered B y: Andreina Cruz on 04-23-2024 Monocytes/100 WBC (Bld) 11.3 % High 0-10 [facility] Neutrophil percentageOrdered By: Andreina Cruz on 04-23-2024 Neutrophils/100 WBC (Bld) 38.2 % Low 47-70 [facility] Nucleated red blood cell per centageOrdered By: Andreina Cruz on 04-23-2024 Nucleated RBC/100 WBC (Bld) [Ratio] 0 % 0-5 [facility] Platelet countOrdered By: Marielos Cruz on 04-23-2024 Platelets (Bld) [#/Vol] 247 10*3/uL 150-450 [facility] Potassium measurementOrdered By: Andreina Cruz on 04-23-2024 Potassium [Moles/Vol] 3.8 mmol/L 3.5-5.1 [facility] RBC Auto (Bld) [#/Vol]Ordere d By: Andreina Cruz on 04-23-2024 RBC (Bld) [#/Vol] 4.64 10*6/uL 4.2-5.4 [facility] Serum anion gap measurementO rdered By: Andreina Cruz on 04-23-2024 Anion gap [Moles/Vol] 7 mmol/L 5-15 [facility] Serum globulin measurementOr dered By: Andreina Cruz on 04-23-2024 Globulin (S) [Mass/Vol] 3.9 g/dL 2.2-4.2 [facility] Serum or plasma alanine rees otransferase (ALT) measurementOrdered By: Andreina Cruz on 04-23-2024 ALT [Catalytic activity/Vol] 20 U/L 13-56 [facility] Serum or plasma albumin griffin urement (mass/volume)Ordered By: Andreina Cruz on 04-23-2024 Albumin [Mass/Vol] 3.1 g/dL Low 3.2-5.0 [facility] Serum or plasma alkaline perez sphatase measurementOrdered By: Andreina Cruz on 04-23-2024 ALP [Catalytic activity/Vol] 76 U/L 45-117 [facility] Serum or plasma calcium griffin urement (mass/volume)Ordered By: Andreina Cruz on 04-23-2024 Calcium [Mass/Vol] 10.3 mg/dL High 8.5-10.1 [facility] Serum or plasma creatinine m easurement (mass/volume)Ordered By: Andreina Cruz on 04-23-2024 Creatinine [Mass/Vol] 1.09 mg/dL High 0.55-1.02 [facility] Comment on above: The validity of the calculated GFR & GFRAA in patients over 70 years has not been determined. Clinical correlation is essential. Serum or plasma urea nitroge n measurement (mass/volume)Ordered By: Andreina Cruz on 04-23-2024 Urea nitrogen [Mass/Vol] 24 mg/dL High 7-18 [facility] Sodium levelOrdered By: Jerzy Cruz on 04-23-2024 Sodium [Moles/Vol] 139 mmol/L 136-145 [facility] Total proteinOrdered By: Denise Cruz on 04-23-2024 Protein [Mass/Vol] 7.0 g/dL 6.4-8.2 [facility] White blood cell (WBC) count Ordered By: Andreina Cruz on 04-23-2024 WBC (Bld) [#/Vol] 5.6 10*3/uL 4.4-11.0 [facility] Internal Medicine Office Vis marixa 02-18-2024 Internal Medicine Office Visit [facility] [address] [place] [address] OFFICE VISIT Date of Service: 02/18/24 MR#: [id number] Acct: [id number] Name: ANH EWING Rep #: [id number] : 1955 Provider: Dr. Moni calderón MD Age/Sex: 69/F Location: [facility] Status: Signed with Addenda ADDENDUM by ALLA Castillo on 02/18/24 at 1018 Office Procedure Documentation entered by Gabriella Castillo MA 02/18/24 10:18: Immunizations Fluad Triv (65y up)(PF) 45 mcg (15 mcg x 3)/0.5 mL IM syringe Performing Provider: Moni Velásquez MD Performing Location: [facility] Administered by: Gabriella Castillo MA on 02/18/24 10:17 Dose Route Admin Location Dispensed Lot Number Expiration Date [facility] Man ufacturer 45 mcg IM Left Deltoid 0.5 mL [id number] 07/16/24 46626-362-58 [employer] VIS Given Date VIS Provided VIS Publication Date 02/18/24 Single Vaccine 24 Eligibility Eligibility Date Funding Source Not Applicable Date cc: * Signed Intake Vital Signs 12/24/23 10:41 01/10/24 17:05 02/18/24 09:48 Height 5 ft 4 in 5 ft 4 in 5 ft 4 in Weight: 276 lb BMI 47.3 BP 120/66 Blood Pressure Location Lt brachial Position Sitting Respiration 16 Pulse 75 Pulse Source Monitor Temp 97.8 F Temp Source Temporal Pulse Oximetry (%) 95 Oxygen Delivery Method room air Intake Visit Reasons: 2 M FU Chief Complaint: 2m fu Biomedical Engineering Technologist Required: No Accompanied by: Self Is patient in pain?: Yes (back pain ) Allergies Sulfa (Sulfonamide Antibiotics) Allergy (Unknown, Verified 02/18/24 09:44) Unknown hydroxychloroquine Allergy (Verified 02/18/24 09:44) Hives tramadol Allergy (Verified 02/18/24 09:44) Itching amlodipine Adverse Reaction (Intermediate, Verified 02/18/24 09:44) Foot and ankle swelling Medications ???Medication ???Instructions ???Recorded ???Confirmed ???Type betamethasone dipropionate 0.05 % 1 applic topical DAILY PRN skin 04/12/19 02/18/24 History topical cream Handicap Placard #1 ea 12/20/19 02/18/24 Rx vibegron 75 mg tablet (Gemtesa) 75 mg PO DAILY 01/31/21 02/18/24 History Handicap Placard #1 ea 11/21/22 02/18/24 Rx leflunomide 20 mg tablet 20 mg PO DAILY 04/03/23 02/18/24 History blood pressure monitor #1 ea 04/17/23 02/18/24 Rx prednisolone acetate 1 % eye 1 drp ophthalmic (eye) ONCE 06/05/23 02/18/24 History drops,suspension acetaminophen 500 mg capsule 1,000 mg (2 x 500 mg) PO Q8H PRN 08/22/23 02/18/24 Rx PRN fever or pain #180 caps tizanidine 4 mg capsule 4 mg PO TID PRN 08/22/23 02/18/24 History apixaban 5 mg tablet 5 mg PO BID 90 days #180 tabs 10/16/23 02/18/24 Rx fenofibrate 54 mg tablet 54 mg PO DAILY #90 tabs 11/11/23 02/18/24 Rx cholecalciferol (vitamin D3) 25 25 mcg PO QDAY 12/17/23 02/18/24 History mcg (1,000 unit) capsule hydralazine 25 mg tablet 25 mg PO BID #180 tabs 12/17/23 02/18/24 Rx hydrochlorothiazide 25 mg tablet 25 mg PO DAILY #90 TABLETS 12/17/23 02/18/24 Rx valsartan 320 mg tablet 320 mg PO DAILY #90 tabs 12/17/23 02/18/24 Rx atenolol 50 mg tablet 50 mg PO DAILY #90 TABLETS 01/07/24 02/18/24 Rx ondansetron 4 mg disintegrating 4 mg PO Q8H PRN PRN Nausea #10 tabs 01/10/24 02/18/24 Rx tablet fluticasone fur. 100 mcg-umeclid 1 inh inhalation Q24H #60 ea 02/18/24 02/18/24 Rx 62.5 mcg-vilant 25 mcg inhalat.powder (Trelegy Ellipta) montelukast 10 mg tablet 10 mg PO QPM #90 tabs 02/18/24 02/18/24 Rx (Singulair) Have you fallen in the past year?: No [facility] Medical History (Updated 02/18/24 @ 10:[address] Moni Velásquez MD) Flu vaccine need Lumbar radiculopathy Paroxysmal cough Left hip pain Bilateral lower extremity edema Piriformis muscle pain Hypercalcemia Hospital discharge follow-up Pulmonary emboli Dyslipidemia Dyspnea on exertion Preoperative evaluation to rule out surgical contraindication GERD (gastroesophageal reflux disease) Carpal tunnel syndrome, right Bradycardia Health care maintenance Morbid obesity with BMI of 45.0-49.9, adult Osteoarthritis Bilateral foot pain Right foot pain CKD (chronic kidney disease), stage III Gout Anemia Arthritis History of pneumonia Asthma Adrenal nodule Thyroid nodule Essential hypertension Mixed hyperlipidemia Surgical History History of cornea transplant History of cataract surgery uterine ablation History of tubal ligation History of cholecystectomy Family History Brother Sudden cardiac , Onset Age: 50 Mother Heart disease Father Heart disease Social History (Reviewed 02/18/24 @ (more content not included)... Normal [facility] CBC W/Diff, Automatedon 01-15 Absolute Lymph 1.81 X10 3/uL Normal 0.83-4.51 [facility] Comment on above: Performed By: #### L 500.4050, L100.0100 ####[facility] [address] [place], [address] Absolute Neut 4.8 X10 3/uL Normal 2.0-7.7 [facility] Comment on above: Performed By: #### L 500.4050, L100.0100 ####[facility] [address] [place], [address] Basophils/100 WBC (Bld) 0.9 % Normal 0-1 [facility] Comment on above: Performed By: #### L 500.4050, L100.0100 ####[facility] [address] [place], [address] Eosinophils/100 WBC (Bld) 0.0 % Normal 0-5 [facility] Comment on above: Performed By: #### L 500.4050, L100.0100 ####[facility] [address] [place], [address] Erythrocyte distribution width (RBC) [Ratio] 14.2 % Normal 11.6-14.6 [facility] Comment on above: Performed By: #### L 500.4050, L100.0100 ####[facility] [address] [place], [address] Hematocrit (Bld) [Volume fraction] 41.6 % Normal 37-47 [facility] Comment on above: Performed By: #### L 500.4050, L100.0100 ####[facility] [address] [place], [address] Hemoglobin (Bld) [Mass/Vol] 13.0 g/dL Normal 12.0-15.0 [facility] Comment on above: Performed By: #### L 500.4050, L100.0100 ####[facility] [address] [place], [address] IG% 0.700 Normal 0.0-0.9 [facility] Comment on above: Result Comment: IG% - Immature Granulocytes (promyelocytes, myelocytes and metamyelocytes) > 1% indicates that a LEFT SHIFT is Present. Performed By: #### L 500.4050, L100.0100 ####[facility] [address] [place], [address] Lymphocytes/100 WBC (Bld) 23.6 % Normal 19-41 [facility] Comment on above: Performed By: #### L 500.4050, L100.0100 ####[facility] [address] [place], [address] MCH (RBC) [Entitic mass] 28.9 pg Normal 27.0-32.0 [facility] Comment on above: Performed By: #### L 500.4050, L100.0100 ####[facility] [address] [place], [address] MCHC (RBC) [Mass/Vol] 31.3 g/dL Low 32-36 [facility] Comment on above: Performed By: #### L 500.4050, L100.0100 ####[facility] [address] [place], [address] MCV (RBC) [Entitic vol] 92.4 fL Normal 81-99 [facility] Comment on above: Performed By: #### L 500.4050, L100.0100 ####[facility] [address] [place], [address] Monocytes/100 WBC (Bld) 11.8 % High 0-10 [facility] Comment on above: Performed By: #### L 500.4050, L100.0100 ####[facility] [address] [place], [address] Neutrophils/100 WBC (Bld) 63.0 % Normal 47-70 [facility] Comment on above: Performed By: #### L 500.4050, L100.0100 ####[facility] [address] [place], [address] Nucleated RBC (Bld) [#/Vol] 0 10*3/uL Normal 0-5 [facility] Comment on above: Performed By: #### L 500.4050, L100.0100 ####[facility] [address] [place], [address] Platelet mean volume (Bld) [Entitic vol] 9.8 fL Normal 6.2-12.0 [facility] Comment on above: Performed By: #### L 500.4050, L100.0100 ####[facility] [address] [place], [address] Platelets (Bld) [#/Vol] 299 10*3/uL Normal 150-450 [facility] Comment on above: Performed By: #### L 500.4050, L100.0100 ####[facility] [address] [place], [address] RBC (Bld) [#/Vol] 4.50 10*6/uL Normal 4.2-5.4 [facility] Comment on above: Performed By: #### L 500.4050, L100.0100 ####[facility] [address] [place], [address] RDW SD 47.9 fl High 35.1-43.9 [facility] Comment on above: Performed By: #### L 500.4050, L100.0100 ####[facility] [address] [place], [address] WBC (Bld) [#/Vol] 7.7 10*3/uL Normal 4.4-11.0 [facility] Comment on above: Performed By: #### L 500.4050, L100.0100 ####[facility] [address] [place], [address] Comprehensive Metabolic [facility] 01-30-2024 Albumin [Mass/Vol] 3.2 g/dL Normal 3.2-5.0 [facility] Comment on above: Performed By: #### L 500.4050, L100.0100 ####[facility] [address] [place], [address] Albumin/Globulin [Mass ratio] 0.9 {ratio} Normal 0.9-2.4 [facility] Comment on above: Performed By: #### L 500.4050, L100.0100 ####[facility] [address] [place], [address] ALK P 79 U/L Normal 45-117 [facility] Comment on above: Performed By: #### L 500.4050, L100.0100 ####[facility] [address] [place], [address] ALT [Catalytic activity/Vol] 17 U/L Normal 13-56 [facility] Comment on above: Performed By: #### L 500.4050, L100.0100 ####[facility] [address] [place], [address] AST [Catalytic activity/Vol] 18 U/L Normal 15-37 [facility] Comment on above: Performed By: #### L 500.4050, L100.0100 ####[facility] [address] [place], [address] Bilirubin [Mass/Vol] 0.40 mg/dL Normal 0.20-1.00 [facility] Comment on above: Result Comment: For patients on eltrombopag therapy, use of Dimension Opp TBIL is not recommended. Performed By: #### L 500.4050, L100.0100 ####[facility] [address] [place], [address] BUN/CRE 29.9 RATIO High 10-20 [facility] Comment on above: Performed By: #### L 500.4050, L100.0100 ####[facility] [address] [place], [address] CA,Total 9.9 mg/dL Normal 8.5-10.1 [facility] Comment on above: Performed By: #### L 500.4050, L100.0100 ####[facility] [address] [place], [address] Chloride [Moles/Vol] 111 mmol/L High 98-107 [facility] Comment on above: Performed By: #### L 500.4050, L100.0100 ####[facility] [address] [place], [address] CO2 [Moles/Vol] 24.0 mmol/L Normal 21.0-32.0 [facility] Comment on above: Performed By: #### L 500.4050, L100.0100 ####[facility] [address] [place], [address] Creatinine [Mass/Vol] 1.17 mg/dL High 0.55-1.02 [facility] Comment on above: Result Comment: The validity of the calculated GFR GFRAA in patients over 70 years has not been determined. Clinical correlation is essential. Performed By: #### L 500.4050, L100.0100 ####[facility] [address] [place], [address] EST GFR - AA 59 mL/min Low >60 [facility] Comment on above: Result Comment: Afri can [place] GFR Calc Performed By: #### L 500.4050, L100.0100 ####[facility] [address] [place], [address] GAP 7 Normal 5-15 [facility] Comment on above: Performed By: #### L 500.4050, L100.0100 ####[facility] [address] [place], [address] GFR/1.73 sq M.predicted among non-blacks MDRD (S/P/Bld) [Vol rate/Area] 49 mL/min/{1.73_m2} Low >60 [facility] Comment on above: Result Comment: Non- GFR Calc Performed By: #### L 500.4050, L100.0100 ####[facility] [address] [place], [address] Globulin (S) [Mass/Vol] 3.7 g/dL Normal 2.2-4.2 [facility] Comment on above: Performed By: #### L 500.4050, L100.0100 ####[facility] [address] [place], [address] Glucose [Mass/Vol] 123 mg/dL High 74-106 [facility] Comment on above: Result Comment: Fast ing Glucose result from 100 to 125 mg/dL suggests IMPAIRED HOMEOSTASIS per A.D.A. criteria. Performed By: #### L 500.4050, L100.0100 ####[facility] [address] [place], [address] Potassium [Moles/Vol] 3.6 mmol/L Normal 3.5-5.1 [facility] Comment on above: Performed By: #### L 500.4050, L100.0100 ####[facility] [address] [place], [address] Sodium [Moles/Vol] 142 mmol/L Normal 136-145 [facility] Comment on above: Performed By: #### L 500.4050, L100.0100 ####[facility] [address] [place], [address] T PROT 6.9 g/dL Normal 6.4-8.2 [facility] Comment on above: Performed By: #### L 500.4050, L100.0100 ####[facility] [address] [place], [address] Urea nitrogen [Mass/Vol] 35 mg/dL High 7-18 [facility] Comment on above: Performed By: #### L 500.4050, L100.0100 ####[facility] [address] [place], [address] Spine Lumbar (Routine)on Spine Lumbar (Routine) [facility] Imaging Services [address] [place] [address] Spine Lumbar (Routine) MR#: [id number] Acct: [id number] Name: ANH EWING Rep #: [id number] : 1955 F 68 From: Bo David MD PCP: Dr. Moni Velásquez MD Status: REG CLI Study: Spine Lumbar (Routine) Date of Exam: 01/12/24 Exam# [id number] Ordering Dr: Bo Fitzgerald MD [id number] STUDY: MRI LUMBAR SPINE WITHOUT CONTRAST REASON FOR EXAM: Female, 68 years old. SPINAL STENOSIS TECHNIQUE: Standardized fat and water weighted pulse sequences were obtained in the sagittal and axial planes. COMPARISON: None FINDINGS: T12-L1: Degenerative endplate changes. Normal disc height, desiccation and tiny central disc protrusion. Normal bilateral facet joints. Normal central canal and bilateral lateral recesses. Normal bilateral intervertebral neural foramina. Normal lumbar lordosis. There is no substantial scoliosis. Normal conus medullaris that terminates at T12-L1 L1-2: Normal endplates. Normal disc height, hydration and morphology. Normal bilateral facet joints. Normal central canal and bilateral lateral recesses. Normal bilateral intervertebral neural foramina. L2-3: Normal endplates. Normal disc height, hydration and morphology. Normal bilateral facet joints. Normal central canal and bilateral lateral recesses. Normal bilateral intervertebral neural foramina. L3-4: Normal endplates. Normal disc height, hydration and morphology. Facet arthropathy and thickening of ligamenta flava slightly worse on the right. Normal central canal and bilateral lateral recesses. Normal bilateral intervertebral neural foramina. L4-5: Degenerative endplate changes. Grade 1 retrolisthesis. Narrowed disc space with minimal bulging disc osteophyte complex. Facet arthropathy slightly more pronounced on the right. Normal central canal and bilateral lateral recesses. Mild left neural foraminal stenosis and moderate narrowing on the right L5-S1: Normal endplates. Normal disc height, desiccation and tiny left foraminal disc protrusion. Normal bilateral facet joints. Normal central canal and bilateral lateral recesses. Moderate left neural foraminal encroachment. Normal visualized sacral ala. Normal visualized paraspinous soft tissue structures. MRI/Spine Lumbar (Routine) IMPRESSION: No acute fracture or other significant bony pathology. Mild spondylosis and spinal stenosis at L4-5 slightly worse on the right and at L5-S1 worse on the left secondary to disc disease and facet arthropathy Electronically Signed: Bo David MD at 19:39 EDT , CC: Dr. Moni Velásquez MD; Dr. Bo Fitzgerald MD Statistical Consultant: Signed Normal [facility] Brain/Head without Contrast n 01-10-2024 Brain/Head without Contrast [facility] Imaging Services [address] [place] [address] Brain/Head without Contrast MR#: [id number] Acct: [id number] Name: ANH EWING Rep #: [id number] : 1955 F 68 From: Casa Benitez DO PCP: Dr. Moni Velásquez MD Status: [facility] Study: Brain/Head without Contrast Date of Exam: 12/16 09/07 Exam# [id number] Ordering Dr: Syed Wood DO [id number] STUDY: CT BRAIN WITHOUT CONTRAST REASON FOR EXAM: Female, 68 years old. head injury RADIATION DOSAGE (If Supplied By Facility): CTDIvol = ( 44.99 ) mGy, DLP = ( 796.11 ) mGycm TECHNIQUE: Transaxial CT imaging of the brain was performed without administration of intravenous contrast material. Individualized dose optimization techniques were used for this CT. COMPARISON: No relevant priors. FINDINGS: Normal soft tissue structures. Normal calvarium. Normal size ventricles and extra-axial spaces for the patient''s age. Normal white matter tracts of the cerebral hemispheres. Normal basal ganglia and thalami. Normal brainstem. Normal cerebellum. There is no intracranial hemorrhage. There are no findings of an acute ischemic infarction. Normal visualized paranasal sinuses. CT/Brain/Head without Contrast IMPRESSION: Normal unenhanced CT scan of the brain. Electronically Signed: Casa Benitez DO at 17:59 EDT Reading Location ID and State: [facility] / ID Tel [phone], Service support , CC: Dr. Moni Velásquez MD; Dr. Syed Wood DO Statistical Consultant: Signed Normal [facility] Emergency Department Summary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 chills, fever or otherwise feeling of unwell. Currently in physical therapy. She states that relief from physical therapy is not long enough. Occasional numbness and (more content not included)... Normal [facility] Protein Electroph, Son 11-03 Albumin [Mass/Vol] 3.0 g/dL Normal 2.9-4.4 [facility] Comment on above: Order Comment: DR.OL CALDERÓN ORDERED VIT D,PTHDR.ANTHONY ORDERED CBCD,CMPPA-C MABEL ORDERED BMP,CBCD,T4F,TSH,LIVER,PROEL Performed By: #### L 506.1000, L509.1000, L100.0100, L506.0400, L500.4050, L501.4700, L501.9520, L3100.3450 ####[facility] [address] [place], [place], [phone] Albumin/Globulin [Mass ratio] 1.1 {ratio} Normal 0.7-1.7 [facility] Comment on above: Order Comment: DR.OL CALDERÓN ORDERED VIT D,PTHDR.ANTHONY ORDERED CBCD,CMPPA-C MABEL ORDERED BMP,CBCD,T4F,TSH,LIVER,PROEL Performed By: #### L 506.1000, L509.1000, L100.0100, L506.0400, L500.4050, L501.4700, L501.9520, L3100.3450 ####[facility] [address] [place], [address] ALPHA-1 GLOBUL 0.3 g/dL Normal 0.0-0.4 [facility] Comment on above: Order Comment: DR.OL CALDERÓN ORDERED VIT D,PTHDR.ANTHONY ORDERED CBCD,CMPPA-C MABEL ORDERED BMP,CBCD,T4F,TSH,LIVER,PROEL Performed By: #### L 506.1000, L509.1000, L100.0100, L506.0400, L500.4050, L501.4700, L501.9520, L3100.3450 ####[facility] [address] [place], [address] ALPHA-2 GLOBUL 0.9 g/dL Normal 0.4-1.0 [facility] Comment on above: Order Comment: DR.OL CALDERÓN ORDERED VIT D,PTHDR.ANTHONY ORDERED CBCD,CMPPA-C MABEL ORDERED BMP,CBCD,T4F,TSH,LIVER,PROEL Performed By: #### L 506.1000, L509.1000, L100.0100, L506.0400, L500.4050, L501.4700, L501.9520, L3100.3450 ####[facility] [address] [place], [address] BETA GLOBULIN 1.1 g/dL Normal 0.7-1.3 [facility] Comment on above: Order Comment: DR.OL CALDERÓN ORDERED VIT D,PTHDR.ANTHONY ORDERED CBCD,CMPPA-C MABEL ORDERED BMP,CBCD,T4F,TSH,LIVER,PROEL Performed By: #### L 506.1000, L509.1000, L100.0100, L506.0400, L500.4050, L501.4700, L501.9520, L3100.3450 ####[facility] [address] [place], [address] GAMMA GLOBULIN 0.6 g/dL Normal 0.4-1.8 [facility] Comment on above: Order Comment: DR.OL CALDERÓN ORDERED VIT D,PTHDR.ANTHONY ORDERED CBCD,CMPPA-C MABEL ORDERED BMP,CBCD,T4F,TSH,LIVER,PROEL Performed By: #### L 506.1000, L509.1000, L100.0100, L506.0400, L500.4050, L501.4700, L501.9520, L3100.3450 ####[facility] [address] [place], [place], [phone] Globulin (S) [Mass/Vol] 2.8 g/dL Normal 2.2-3.9 [facility] Comment on above: Order Comment: DR.OL CALDERÓN ORDERED VIT D,PTHDR.ANTHONY ORDERED CBCD,NGOC-Bandar CARRILLO ORDERED BMP,CBCD,T4F,TSH,LIVER,PROEL Performed By: #### L 506.1000, L509.1000, L100.0100, L506.0400, L500.4050, L501.4700, L501.9520, L3100.3450 ####[facility] [address] [place], [place], [phone] INTERPRETATION Comment Normal . [facility] Comment on above: Order Comment: DR.OL CALDERÓN ORDERED VIT D,PTHDR.ANTHONY ORDERED CBCD,CMPPA-C MABEL ORDERED BMP,CBCD,T4F,TSH,LIVER,PROEL Result Comment: Prot ein electrophoresis scan will follow via computer, mail, or detective sergeant delivery. Performed By: #### L 506.1000, L509.1000, L100.0100, L506.0400, L500.4050, L501.4700, L501.9520, L3100.3450 ####[facility] [address] [place], [place], [phone]) M-SPIKE Not Observed Normal Not Observed [facility] Comment on above: Order Comment: DR.OL CALDERÓN ORDERED VIT D,PTHDR.VELLANKI ORDERED CBCD,CMPPA-C MABEL ORDERED BMP,CBCD,T4F,TSH,LIVER,PROEL Performed By: #### L 506.1000, L509.1000, L100.0100, L506.0400, L500.4050, L501.4700, L501.9520, L3100.3450 ####[facility] [address] [place], [place], [phone] NOTE: Comment: Normal . [facility] Comment on above: Order Comment: DR.OL CALDERÓN ORDERED VIT D,PTHDR.ANTHONY ORDERED CBCD,CMPPA-C MABEL ORDERED BMP,CBCD,T4F,TSH,LIVER,PROEL Result Comment: SPE shows decreased total protein. Performed at: [facility] [id number] Copy Holder: Chad Haskins PhD, Phone: [phone] Performed By: #### L 506.1000, L509.1000, L100.0100, L506.0400, L500.4050, L501.4700, L501.9520, L3100.3450 ####[facility] [address] [place], [place], [phone] Protein [Mass/Vol] 5.8 g/dL Low 6.0-8.5 [facility] Comment on above: Order Comment: DR.OL CALDERÓN ORDERED VIT D,PTHDR.ANTHONY ORDERED CBCD,CMPPA-C MABEL ORDERED BMP,CBCD,T4F,TSH,LIVER,PROEL Performed By: #### L 506.1000, L509.1000, L100.0100, L506.0400, L500.4050, L501.4700, L501.9520, L3100.3450 ####[facility] [address] [place], [place], [phone] Bilirubin, Directon 11-03-19 24 Bilirubin.direct [Mass/Vol] 0.12 mg/dL Normal 0.00-0.30 [facility] Comment on above: Performed By: #### L 506.1000, L509.1000, L100.0100, L506.0400, L500.4050, L501.4700, L501.9520, L3100.3450 ####[facility] [address] [facility] [place], [address] CBC W/Diff, Automatedon 10-15 Absolute Lymph 1.67 X10 3/uL Normal 0.83-4.51 [facility] Comment on above: Performed By: #### L 506.1000, L509.1000, L100.0100, L506.0400, L500.4050, L501.4700, L501.9520, L3100.3450 #### [facility] [address] [place], [address] Absolute Neut 3.0 X10 3/uL Normal 2.0-7.7 [facility] Comment on above: Performed By: #### L 506.1000, L509.1000, L100.0100, L506.0400, L500.4050, L501.4700, L501.9520, L3100.3450 #### [facility] [address] [place], [address] Basophils/100 WBC (Bld) 1.0 % Normal 0-1 [facility] Comment on above: Performed By: #### L 506.1000, L509.1000, L100.0100, L506.0400, L500.4050, L501.4700, L501.9520, L3100.3450 #### [facility] [address] [place], [address] Eosinophils/100 WBC (Bld) 1.9 % Normal 0-5 [facility] Comment on above: Performed By: #### L 506.1000, L509.1000, L100.0100, L506.0400, L500.4050, L501.4700, L501.9520, L3100.3450 #### [facility] [address] [place], [address] Erythrocyte distribution width (RBC) [Ratio] 15.1 % High 11.6-14.6 [facility] Comment on above: Performed By: #### L 506.1000, L509.1000, L100.0100, L506.0400, L500.4050, L501.4700, L501.9520, L3100.3450 #### [facility] [address] [place], [address] Hematocrit (Bld) [Volume fraction] 38.4 % Normal 37-47 [facility] Comment on above: Performed By: #### L 506.1000, L509.1000, L100.0100, L506.0400, L500.4050, L501.4700, L501.9520, L3100.3450 #### [facility] [address] [place], [address] Hemoglobin (Bld) [Mass/Vol] 12.1 g/dL Normal 12.0-15.0 [facility] Comment on above: Performed By: #### L 506.1000, L509.1000, L100.0100, L506.0400, L500.4050, L501.4700, L501.9520, L3100.3450 #### [facility] [address] [place], [address] IG% 0.200 Normal 0.0-0.9 [facility] Comment on above: Result Comment: IG% - Immature Granulocytes (promyelocytes, myelocytes and metamyelocytes) > 1% indicates that a LEFT SHIFT is Present. Performed By: #### L 506.1000, L509.1000, L100.0100, L506.0400, L500.4050, L501.4700, L501.9520, L3100.3450 #### [facility] [address] [place], [address] Lymphocytes/100 WBC (Bld) 28.9 % Normal 19-41 [facility] Comment on above: Performed By: #### L 506.1000, L509.1000, L100.0100, L506.0400, L500.4050, L501.4700, L501.9520, L3100.3450 #### [facility] [address] [place], [address] MCH (RBC) [Entitic mass] 29.2 pg Normal 27.0-32.0 [facility] Comment on above: Performed By: #### L 506.1000, L509.1000, L100.0100, L506.0400, L500.4050, L501.4700, L501.9520, L3100.3450 #### [facility] [address] [place], [address] MCHC (RBC) [Mass/Vol] 31.5 g/dL Low 32-36 [facility] Comment on above: Performed By: #### L 506.1000, L509.1000, L100.0100, L506.0400, L500.4050, L501.4700, L501.9520, L3100.3450 #### [facility] [address] [place], [address] MCV (RBC) [Entitic vol] 92.5 fL Normal 81-99 [facility] Comment on above: Performed By: #### L 506.1000, L509.1000, L100.0100, L506.0400, L500.4050, L501.4700, L501.9520, L3100.3450 #### [facility] [address] [place], [address] Monocytes/100 WBC (Bld) 15.3 % High 0-10 [facility] Comment on above: Performed By: #### L 506.1000, L509.1000, L100.0100, L506.0400, L500.4050, L501.4700, L501.9520, L3100.3450 #### [facility] [address] [place], [address] Neutrophils/100 WBC (Bld) 52.7 % Normal 47-70 [facility] Comment on above: Performed By: #### L 506.1000, L509.1000, L100.0100, L506.0400, L500.4050, L501.4700, L501.9520, L3100.3450 #### [facility] [address] [place], [address] Nucleated RBC (Bld) [#/Vol] 0 10*3/uL Normal 0-5 [facility] Comment on above: Performed By: #### L 506.1000, L509.1000, L100.0100, L506.0400, L500.4050, L501.4700, L501.9520, L3100.3450 #### [facility] [address] [place], [address] Platelet mean volume (Bld) [Entitic vol] 10.1 fL Normal 6.2-12.0 [facility] Comment on above: Performed By: #### L 506.1000, L509.1000, L100.0100, L506.0400, L500.4050, L501.4700, L501.9520, L3100.3450 #### [facility] [address] [place], [address] Platelets (Bld) [#/Vol] 191 10*3/uL Normal 150-450 [facility] Comment on above: Performed By: #### L 506.1000, L509.1000, L100.0100, L506.0400, L500.4050, L501.4700, L501.9520, L3100.3450 #### [facility] [address] [place], [address] RBC (Bld) [#/Vol] 4.15 10*6/uL Low 4.2-5.4 [facility] Comment on above: Performed By: #### L 506.1000, L509.1000, L100.0100, L506.0400, L500.4050, L501.4700, L501.9520, L3100.3450 #### [facility] [address] [place], [address] RDW SD 51.1 fl High 35.1-43.9 [facility] Comment on above: Performed By: #### L 506.1000, L509.1000, L100.0100, L506.0400, L500.4050, L501.4700, L501.9520, L3100.3450 #### [facility] [address] [place], [address] WBC (Bld) [#/Vol] 5.8 10*3/uL Normal 4.4-11.0 [facility] Comment on above: Performed By: #### L 506.1000, L509.1000, L100.0100, L506.0400, L500.4050, L501.4700, L501.9520, L3100.3450 #### [facility] [address] [place], [address] Comprehensive Metabolic [facility] 11-03-2023 Albumin [Mass/Vol] 2.9 g/dL Low 3.2-5.0 [facility] Comment on above: Performed By: #### L 506.1000, L509.1000, L100.0100, L506.0400, L500.4050, L501.4700, L501.9520, L3100.3450 ####[facility] [address] [place], [address] Albumin/Globulin [Mass ratio] 0.8 {ratio} Low 0.9-2.4 [facility] Comment on above: Performed By: #### L 506.1000, L509.1000, L100.0100, L506.0400, L500.4050, L501.4700, L501.9520, L3100.3450 ####[facility] [address] [place], [address] ALK P 69 U/L Normal 45-117 [facility] Comment on above: Performed By: #### L 506.1000, L509.1000, L100.0100, L506.0400, L500.4050, L501.4700, L501.9520, L3100.3450 ####[facility] [address] [place], [address] ALT [Catalytic activity/Vol] 23 U/L Normal 13-56 [facility] Comment on above: Performed By: #### L 506.1000, L509.1000, L100.0100, L506.0400, L500.4050, L501.4700, L501.9520, L3100.3450 ####[facility] [address] [place], [address] AST [Catalytic activity/Vol] 29 U/L Normal 15-37 [facility] Comment on above: Performed By: #### L 506.1000, L509.1000, L100.0100, L506.0400, L500.4050, L501.4700, L501.9520, L3100.3450 ####[facility] [address] [place], [address] Bilirubin [Mass/Vol] 0.40 mg/dL Normal 0.20-1.00 [facility] Comment on above: Result Comment: For patients on eltrombopag therapy, use of Dimension Opp TBIL is not recommended. Performed By: #### L 506.1000, L509.1000, L100.0100, L506.0400, L500.4050, L501.4700, L501.9520, L3100.3450 ####[facility] [address] [place], [address] BUN/CRE 18.0 RATIO Normal 10-20 [facility] Comment on above: Performed By: #### L 506.1000, L509.1000, L100.0100, L506.0400, L500.4050, L501.4700, L501.9520, L3100.3450 ####[facility] [address] [place], [address] CA,Total 9.7 mg/dL Normal 8.5-10.1 [facility] Comment on above: Performed By: #### L 506.1000, L509.1000, L100.0100, L506.0400, L500.4050, L501.4700, L501.9520, L3100.3450 ####[facility] [address] [place], [address] Chloride [Moles/Vol] 110 mmol/L High 98-107 [facility] Comment on above: Performed By: #### L 506.1000, L509.1000, L100.0100, L506.0400, L500.4050, L501.4700, L501.9520, L3100.3450 ####[facility] [address] [place], [address] CO2 [Moles/Vol] 25.0 mmol/L Normal 21.0-32.0 [facility] Comment on above: Performed By: #### L 506.1000, L509.1000, L100.0100, L506.0400, L500.4050, L501.4700, L501.9520, L3100.3450 ####[facility] [address] [place], [address] Creatinine [Mass/Vol] 1.33 mg/dL High 0.55-1.02 [facility] Comment on above: Result Comment: The validity of the calculated GFR GFRAA in patients over 70 years has not been determined. Clinical correlation is essential. Performed By: #### L 506.1000, L509.1000, L100.0100, L506.0400, L500.4050, L501.4700, L501.9520, L3100.3450 ####[facility] [address] [place], [place], [id number] EST GFR - AA 51 mL/min Low >60 [facility] Comment on above: Result Comment: Afri can [place] GFR Calc Performed By: #### L 506.1000, L509.1000, L100.0100, L506.0400, L500.4050, L501.4700, L501.9520, L3100.3450 ####[facility] [address] [place], [address] GAP 6 Normal 5-15 [facility] Comment on above: Performed By: #### L 506.1000, L509.1000, L100.0100, L506.0400, L500.4050, L501.4700, L501.9520, L3100.3450 ####[facility] [address] [place], [address] GFR/1.73 sq M.predicted among non-blacks MDRD (S/P/Bld) [Vol rate/Area] 42 mL/min/{1.73_m2} Low >60 [facility] Comment on above: Result Comment: Non- GFR Calc Performed By: #### L 506.1000, L509.1000, L100.0100, L506.0400, L500.4050, L501.4700, L501.9520, L3100.3450 ####[facility] [address] [place], [address] Globulin (S) [Mass/Vol] 3.6 g/dL Normal 2.2-4.2 [facility] Comment on above: Performed By: #### L 506.1000, L509.1000, L100.0100, L506.0400, L500.4050, L501.4700, L501.9520, L3100.3450 ####[facility] [address] [place], [address] Glucose [Mass/Vol] 109 mg/dL High 74-106 [facility] Comment on above: Result Comment: Fast ing Glucose result from 100 to 125 mg/dL suggests IMPAIRED HOMEOSTASIS per A.D.A. criteria. Performed By: #### L 506.1000, L509.1000, L100.0100, L506.0400, L500.4050, L501.4700, L501.9520, L3100.3450 ####[facility] [address] [place], [address] Potassium [Moles/Vol] 3.6 mmol/L Normal 3.5-5.1 [facility] Comment on above: Performed By: #### L 506.1000, L509.1000, L100.0100, L506.0400, L500.4050, L501.4700, L501.9520, L3100.3450 ####[facility] [address] [place], [address] Sodium [Moles/Vol] 141 mmol/L Normal 136-145 [facility] Comment on above: Performed By: #### L 506.1000, L509.1000, L100.0100, L506.0400, L500.4050, L501.4700, L501.9520, L3100.3450 ####[facility] [address] [place], [address] T PROT 6.5 g/dL Normal 6.4-8.2 [facility] Comment on above: Performed By: #### L 506.1000, L509.1000, L100.0100, L506.0400, L500.4050, L501.4700, L501.9520, L3100.3450 ####[facility] [address] [place], [address] Urea nitrogen [Mass/Vol] 24 mg/dL High 7-18 [facility] Comment on above: Performed By: #### L 506.1000, L509.1000, L100.0100, L506.0400, L500.4050, L501.4700, L501.9520, L3100.3450 ####[facility] [address] [place], [address] PTHINon 11-03-2023 PTH 84.4 pg/mL High 18.4-80.1 [facility] Comment on above: Performed By: #### L 506.1000, L509.1000, L100.0100, L506.0400, L500.4050, L501.4700, L501.9520, L3100.3450 #### [facility] [address] [place], [address] T4 Free Directon 11-03-2023 T4 FREE DIRECT 1.08 ng/dL Normal 0.76-1.46 [facility] Comment on above: Performed By: #### L 506.1000, L509.1000, L100.0100, L506.0400, L500.4050, L501.4700, L501.9520, L3100.3450 ####[facility] [address] [place], [address] Thyroid Stim Hormone (TSH)on 11-03-2023 TSH 1.370 uIU/mL Normal 0.358-3.740 [facility] Comment on above: Performed By: #### L 506.1000, L509.1000, L100.0100, L506.0400, L500.4050, L501.4700, L501.9520, L3100.3450 ####[facility] [address] [place], [address] Vitamin D,25 Hydroxyon 11-02 Vitamin D 25-OH 58.4 ng/mL Normal [facility] Comment on above: Result Comment: Evie min D 25(OH) Status Range Deficiency <20 ng/mL (50nmol/L) Insufficiency 20 - 30 ng/mL (50 - 75 nmol/L) Sufficiency 30 - 100 ng/mL (75 - 250 nmol/L) Toxicity >100 ng/mL (>250 nmol/L) Performed By: #### L 506.1000, L509.1000, L100.0100, L506.0400, L500.4050, L501.4700, L501.9520, L3100.3450 #### [facility] [address] [place], [address] Internal Medicine Office Vis iton 10-16-2023 Internal Medicine Office Visit [facility] [address] [place] [address] [place] [address] OFFICE VISIT Date of Service: 10/16/23 MR#: [id number] Acct: [id number] Name: ANH EWING Rep #: [id number] : 1955 Provider: Dr. 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 Is patient in pain?: No Allergies Sulfa (Sulfonamide Antibiotics) Allergy (Unknown, Verified 10/16/23 14:02) Unknown hydroxychloroquine Allergy (Verified 10/16/23 14:02) Hives amlodipine Adverse Reaction (Intermediate, Verified 10/16/23 14:02) Foot and ankle swelling Medications ???Medication ???Instructions ???Recorded ???Confirmed ???Type betamethasone dipropionate 0.05 % 1 applic topical DAILY PRN skin 04/12/19 10/16/23 History topical cream Handicap Placard #1 ea 12/20/19 10/16/23 Rx vibegron 75 mg tablet (Gemtesa) 75 mg PO DAILY 01/31/21 10/16/23 History atenolol 50 mg tablet 50 mg PO DAILY #90 tabs 10/21/22 10/16/23 Rx valsartan 320 mg tablet 320 mg PO DAILY #90 tabs 11/13/22 10/16/23 Rx Handicap Placard #1 ea 11/21/22 10/16/23 Rx fenofibrate 54 mg tablet 54 mg PO DAILY #90 tabs 03/18/23 10/16/23 Rx leflunomide 20 mg tablet 20 mg PO DAILY 04/03/23 10/16/23 History blood pressure monitor #1 ea 04/17/23 10/16/23 Rx prednisolone acetate 1 % eye 1 drp ophthalmic (eye) ONCE 06/05/23 10/16/23 History drops,suspension acetaminophen 500 mg capsule 1,000 mg (2 x 500 mg) PO Q8H PRN 08/22/23 10/16/23 Rx PRN fever or pain #180 caps albuterol sulfate 90 mcg/actuation 2 puff inhalation Q4-6H PRN 08/22/23 10/16/23 Rx aerosol inhaler shortness of breath or wheezing #8.5 grams tizanidine 4 mg capsule 4 mg PO TID PRN 08/22/23 10/16/23 History hydrochlorothiazide 25 mg tablet 25 mg PO DAILY #90 TABLETS 10/01/23 10/16/23 Rx hydralazine 25 mg tablet 25 mg PO BID #60 tabs 10/02/23 10/16/23 Rx amoxicillin 875 mg-potassium 1 tab PO BID #14 tabs 10/16/23 10/16/23 Rx clavulanate 125 mg tablet apixaban 5 mg tablet 5 mg PO BID 90 days #180 tabs 10/16/23 10/16/23 Rx benzonatate 100 mg capsule 100 mg PO BID-TID PRN cough #60 10/16/23 10/16/23 Rx caps prednisone 20 mg tablet 40 mg (2 x 20 mg) PO DAILY #10 tabs 10/16/23 10/16/23 Rx Have you fallen in the past year?: No PFSH Medical History (Updated 08/01/24 @ 14:[address] Moni Velásquez MD) Paroxysmal cough Left hip pain Bilateral lower extremity edema Piriformis muscle pain Hypercalcemia Hospital discharge follow-up Pulmonary emboli Dyslipidemia Dyspnea on exertion Preoperative evaluation to rule out surgical contraindication GERD (gastroesophageal reflux disease) Carpal tunnel syndrome, right Bradycardia Health care maintenance Morbid obesity with BMI of 45.0-49.9, adult Osteoarthritis Bilateral foot pain Right foot pain CKD (chronic kidney disease), stage III Gout Anemia Arthritis History of pneumonia Asthma Adrenal nodule Thyroid nodule Essential hypertension Mixed hyperlipidemia Surgical History History of cornea transplant History of cataract surgery uterine ablation History of tubal ligation History of cholecystectomy Family History Brother Sudden cardiac , Onset Age: 50 Mother Heart disease Father Heart disease Social History Smoking Status: Never smoker alcohol intake: never substance use type: does not use caffeine: Yes Type: coffee Number of servings: 2 HPI HPI Chief Complaint: Cough Details: ANH EWING, is a 68 F who presents to the office today for an acute visit. She reports a 4-week history of cough. Intermittent/comes in bouts. Associated with excessive sneezing. History of asthma. Has had to use her rescue inhaler more and finds benefit with its use. No chills, fever or otherwise feeling of unwell. 4 weeks ago, had a period of congestion which she attributed to travel. ROS Const Constitutional: No body ache, chills, excessive sweating, fatigue, fever(s), frequent falls, headache(s), snoring, weakness, sleep problems or change in appetite Eyes Eyes: No blurry vision, change in vision, bulging eyes, floaters, visual disturbances, eye pain or Light sensitivity ENT ENT: No abnorm (more content not included)... Normal [facility] Inital Evaluation (1) - PTon 10-13-2023 Inital Evaluation (1) - PT [facility] Physical Therapy Health[address] [place] [address] / REHABILITATION SERVICES INITIAL EVALUATION MR#: [id number] Acct: [id number] Name: ANH EWING Rep #: [id number] : 1955 68 From: Harvey Morse DPT Referring Dr.: Dr. Moni Velásquez MD Status: REG RCR Insurance: [employer] PPO SELF PAY INSURANCE Patient's Visit Information Visit Information Visit Information: ANH EWING is a 68 year old F referred to Physical Therapy by Dr. Moni Velásquez MD with a diagnosis of L hip pain. Date of Evaluation: 10/08/23 Physical Therapist: Harvey Morse DPT Visit Plan Frequency: 2x /Week Duration: 6 Weeks Plan: Start with L hip and lumbar ROM. Start with lumbar extension progression. Add in piriformis stretching as well. Progress to BLE and core strengthening as able. May use US to lumbar spine and L gluteal region to reduce symptoms if needed. Subjective Subjective: Pt. is here today for her initial evaluation with diagnosis of L hip pain. Pt. reports having hip pain for a few months now. She reports no mech of injury. Pt. reports pain upto 7/10 mostly at night. NO imaging yet. Her pain she reports starts in her upper part of her L gluteal region but will go down her entire leg and sometimes down both legs. She is taking tramadol at night, but this was for a previous issues with blood clots, she is also on Eliquis for her blood clots. She reports biggest issues in at night and in the mornings. She has RA and is on medicine for this as well. She reports a few years ago her general mobility with very limited secondary to pain. Pt. 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 She will have to stand up to 1 hour. Pt. is hopeful to reduce symptoms and increase her BLE strength in order to complete all daily and work activities without limitations. Pain L posterior hip: Pain Intensity (Out of 10): 5 Pain Intensity Range: 3 and 8 Objective Objective: POSTURE: Pt. has general flexed posture, wide STACEY. overall slouched pattern. PALPATION: Pt. has increased tenderness at L gluteal region, as well as piriformis. No pain with palpation throughout rest of LE. Pt.is have pain with spring testing throughout lumbar spine with hypomobility noted there as well. NEURO: Pt. c/o tingling in her legs, but has similar sensation bilaterally and normal DTR of BLEs. Pt. is able to rise on heels and toes without issues. ROM: Lumbar spine: flexion mod loss increase NW, ext mod loss mild decrease NB, SB mod loss billat increase NW, rotation mod loss bilat increase NW. L hip: flexion 110deg increase NW, ext 0deg NE, ER 50eg increase NW, IR 20deg NE. Tight HS bilaterally. MMT: RLE: ankle 5/5 throughout; knee: ext 12.3#, flexion 5.1#; hip: flexion 0#, abd 4#. LLE: ankle 5/5 throughout; knee: ext 11.4#, flexion 4.2#, hip: flexion 0#, abd 3#. GAIT: Pt. ambulates with out AD today. She repots typically using a SPC. Pt. reports no walking much due to her levels of pain. STAIRS: DNT. Special Tests L/S Slump test left side: Positive L/S Slump test right side: Negative L/S Left Straight Leg Raise: Positive L/S Right Straight Leg Raise: Negative Lumbar Standing: Flexion - Mechanical Response: No effect Lumbar Standing: Flexion - Symptoms During Testing: Increases Lumbar Standing: Flexion - Symptoms After Testing: No worse Lumbar Standing: Extension - Mechanical Response: No effect Lumbar Standing: Extension - Symptoms During Testing: Decreases Lumbar Standing: Extension - Symptoms After Testing: No better Lumbar Standing: Right Side Glides - Mechanical Response: No effect Lumbar Standing: Right Side Hastings - Symptoms During Testing: Increases Lumbar Standing: Right Side Hastings - Symptoms After Testing: No worse Lumbar Standing: Left Side Hastings - Mechanical Response: No effect Lumbar Standing: Left Side Hastings - Symptoms During Testing: Increases Lumbar Standing: Left Side [place] - Symptoms After Testing: No worse Lumbar Lying: Flexion - Mechanical Response: No effect Lumbar Lying: Flexion - Symptoms During Testing: No effect Lumbar Lying: Flexion - Symptoms After Testing: No effect Lumbar Lying: Extension - Mechanical Response: No effect Lumbar Lying: Extension - Symptoms During Testing: Decreases Lumbar Lying: Extension - Symptoms After Testing: No better Balance/Special Test Scores Lower Extremity Functional Score: 30 Goals Goal 1:: LTG: Pt. to be I with HEP for lumbar/hip ROM and BLE strengthening. Goal Time Frame: 4-6 Weeks Goal 2:: STG: Pt. to sleep throughout the night without increase in symptoms. Goal Time Frame: 2-4 Weeks Goal 3:: LTG: Pt. to have increased core and BLE strength by 5# throughout. Goal Time Frame: 4-6 Weeks Goal 4:: LTG: Pt. to have increased ROM of lumba (more content not included)... Normal [facility] Absolute lymphocyte countOrd ered By: Andreina Cruz on 05-16-2023 Lymphocytes Auto (Unsp spec) [#/Vol] 2.12 10*3/uL 0.83-4.51 [facility] Automated lymphocyte count a s percentage of total leukocytesOrdered By: Andreina Cruz on 05-16-2023 Lymphocytes/100 WBC Auto (Unsp spec) 38.7 % 19-41 [facility] Basophil percentageOrdered B y: Andreina Cruz on 05-16-2023 Basophils/100 WBC (Bld) 1.1 % 0-1 [facility] Bilirubin [Mass/Vol] 0.50 mg/dL 0.20-1.00 [facility] Comment on above: For patients on eltr ombopag therapy, use of Dimension Opp TBIL is not recommended. Chloride [Moles/Vol] 109 mmol/L 98-107 [facility] Eosinophils/100 WBC (Bld) 4.0 % 0-5 [facility] Glucose [Mass/Vol] 103 mg/dL 74-106 [facility] Comment on above: Fasting Glucose resu lt from 100 to 125 mg/dL suggests IMPAIRED HOMEOSTASIS per A.D.A. criteria. Hemoglobin (Bld) [Mass/Vol] 12.6 g/dL 12.0-15.0 [facility] Monocytes/100 WBC (Bld) 14.4 % 0-10 [facility] Neutrophils (Bld) [#/Vol] 2.3 10*3/uL 2.0-7.7 [facility] Neutrophils/100 WBC (Bld) 41.4 % 47-70 [facility] Potassium [Moles/Vol] 3.9 mmol/L 3.5-5.1 [facility] Protein [Mass/Vol] 7.5 g/dL 6.4-8.2 [facility] Sodium [Moles/Vol] 140 mmol/L 136-145 [facility] WBC (Bld) [#/Vol] 5.5 10*3/uL 4.4-11.0 [facility] Determination of erythrocyte mean corpuscular volume (MCV)Ordered By: Andreina Cruz on 05-16-2023 MCV (RBC) [Entitic vol] 91.2 fL 81-99 [facility] Erythrocyte distribution wid th ratioOrdered By: [facility] Anthony on 05-16-2023 Erythrocyte distribution width (RBC) [Ratio] 18.3 % 11.6-14.6 [facility] Erythrocyte distribution wid th standard deviationOrdered By: [facility] Anthony on 05-16-2023 Erythrocyte distribution width (RBC) [Entitic vol] 60.8 fL 35.1-43.9 [facility] Hematocrit Auto (Bld) [Volum e fraction]Ordered By: Andreina Cruz on 05-16-2023 Hematocrit (Bld) [Volume fraction] 41.5 % 37-47 [facility] Immature granulocytes/100 WB C Auto (Bld)Ordered By: [facility] Anthony on 05-16-2023 Immature granulocytes/100 WBC (Bld) 0.400 % 0.0-0.9 [facility] Comment on above: IG% - Immature Granu locytes (promyelocytes, myelocytes and metamyelocytes) > 1% indicates that a LEFT SHIFT is Present. Laboratory - Chemistry and C hemistry - challengeOrdered By: Andreina Cruz on 05-16-2023 Albumin/Globulin [Mass ratio] 0.8 {ratio} 0.9-2.4 [facility] ALP [Catalytic activity/Vol] 73 U/L 45-117 [facility] ALT [Catalytic activity/Vol] 19 U/L 13-56 [facility] CO2 [Moles/Vol] 26.0 mmol/L 21.0-32.0 [facility] Globulin (S) [Mass/Vol] 4.1 g/dL 2.2-4.2 [facility] Urea nitrogen/Creatinine [Mass ratio] 16.1 mg/mg 10-20 [facility] Laboratory - Hematology and Cell countsOrdered By: Andreina Cruz on 05-16-2023 MCH (RBC) [Entitic mass] 27.7 pg 27.0-32.0 [facility] MCHC (RBC) [Mass/Vol] 30.4 g/dL 32-36 [facility] Nucleated RBC/100 WBC (Bld) [Ratio] 0 % 0-5 [facility] Platelet mean volume (Bld) [Entitic vol] 9.5 fL 6.2-12.0 [facility] Platelets (Bld) [#/Vol] 246 10*3/uL 150-450 [facility] No Panel InformationOrdered By: Andreina Cruz on 05-16-2023 Estimated GFR (MDRD) Amer 62 mL/min >60 [facility] Comment on above: GFR Calc Estimated GFR (MDRD) Non-Af Amer 51 mL/min >60 [facility] Comment on above: Non- GFR Calc RBC Auto (Bld) [#/Vol]Ordere d By: Andreina Cruz on 05-16-2023 RBC (Bld) [#/Vol] 4.55 10*6/uL 4.2-5.4 [facility] Serum or plasma calcium griffin urement (mass/volume)Ordered By: Andreina Cruz on 05-16-2023 Calcium [Mass/Vol] 10.8 mg/dL 8.5-10.1 [facility] Serum or plasma creatinine m easurement (mass/volume)Ordered By: Andreina Cruz on 05-16-2023 Creatinine [Mass/Vol] 1.12 mg/dL 0.55-1.02 [facility] Comment on above: The validity of the calculated GFR & GFRAA in patients over 70 years has not been determined. Clinical correlation is essential. Serum or plasma urea nitroge n measurement (mass/volume)Ordered By: Andreina Cruz on 05-16-2023 Urea nitrogen [Mass/Vol] 18 mg/dL 7-18 [facility] Thin prep Papanicolaou smear with manual screeningOrdered By: Andreina Cruz on 05-16-2023 Thin prep Papanicolaou smear with manual screening 3.4 g/dL 3.2-5.0 [facility] Thin prep Papanicolaou smear with manual screening 22 U/L 15-37 [facility] Thin prep Papanicolaou smear with manual screening 5 5-15 [facility] 24 hour urine dopamine measu rement (mass/time)Ordered By: Freddie Fraire on 05-12-2023 DOPamine (24H U) [Mass/Time] 257 ug/24 hr 65-610 [facility] Comment on above: TESTING PERFORMED AT [facility]. ORIGINAL REPORT ON FILE IN LAB CONTAINS ADDITIONAL TEST SITE INFORMATION. 24 hour urine free cortisol measurement (mass/time)Ordered By: Freddie Fraire on 05-12-2023 Cortisol Free (24H U) [Mass/Time] 9 ug/24 hr 6-42 [facility] Comment on above: Performed at: [address] [id number] Director: Beth Moore MD, Phone: [phone] No Panel InformationOrdered By: Freddie Fraire on 05-12-2023 Urine Epinephrine 24 Hour < 5 ug/24 hr 0-20 [facility] Urine Norepinephrine 24 Hour 60 ug/24 hr 0-135 [facility] Quantitative urine free gonzalez isol measurement (mass/volume)Ordered By: Freddie Fraire on 05-12-2023 Cortisol Free (U) [Mass/Vol] 6 ug/L Undefined [facility] Urine dopamine measurement ( mass/volume)Ordered By: Freddie Fraire on 05-12-2023 DOPamine (U) [Mass/Vol] 171 ug/L Undefined [facility] Urine epinephrine measuremen t (mass/volume)Ordered By: Freddie Fraire on 05-12-2023 EPINEPHrine (U) [Mass/Vol] < 3 ug/L Undefined [facility] Urine norepinephrine measure ment (mass/volume)Ordered By: Freddie Melgozajose angel on 05-12-2023 Norepinephrine (U) [Mass/Vol] 40 ug/L Undefined [facility] Basophil percentageOrdered B y: Freddie Fraire on 05-08-2023 Bilirubin [Mass/Vol] 0.50 mg/dL 0.20-1.00 [facility] Comment on above: For patients on eltr ombopag therapy, use of Dimension Opp TBIL is not recommended. Chloride [Moles/Vol] 106 mmol/L 98-107 [facility] Glucose [Mass/Vol] 109 mg/dL 74-106 [facility] Comment on above: Fasting Glucose resu lt from 100 to 125 mg/dL suggests IMPAIRED HOMEOSTASIS per A.D.A. criteria. Potassium [Moles/Vol] 3.7 mmol/L 3.5-5.1 [facility] Protein [Mass/Vol] 7.4 g/dL 6.4-8.2 [facility] Sodium [Moles/Vol] 138 mmol/L 136-145 [facility] Iron measurement (mass/mass) Ordered By: Freddie Villainocencio on 05-08-2023 Iron (Unsp spec) [Mass/Mass] 91 ug/dL 50-170 [facility] Laboratory - Chemistry and C hemistry - challengeOrdered By: Freddiekelley Fraire on 05-08-2023 Albumin/Globulin [Mass ratio] 0.8 {ratio} 0.9-2.4 [facility] ALP [Catalytic activity/Vol] 79 U/L 45-117 [facility] ALT [Catalytic activity/Vol] 19 U/L 13-56 [facility] CO2 [Moles/Vol] 27.0 mmol/L 21.0-32.0 [facility] Cobalamin (Vitamin B12) [Mass/Vol] 272 pg/mL 211-911 [facility] Ferritin [Mass/Vol] 745 ng/mL 8-252 [facility] Globulin (S) [Mass/Vol] 4.1 g/dL 2.2-4.2 [facility] Urea nitrogen/Creatinine [Mass ratio] 22.0 mg/mg 10-20 [facility] No Panel InformationOrdered By: Freddie Fraire on 05-08-2023 Dehydroepiandrosterone Sulfate 74.5 ug/dL 20.4-186.6 [facility] Comment on above: Performed at: [address] [id number] Director: Chad Haskins PhD, Phone: [phone] Estimated GFR (MDRD) Amer 56 mL/min >60 [facility] Comment on above: GFR Calc Estimated GFR (MDRD) Non-Af Amer 46 mL/min >60 [facility] Comment on above: Non- GFR Calc Total Iron Binding Capacity 391 ug/dL 250-450 [facility] Serum or plasma calcium griffin urement (mass/volume)Ordered By: Freddie Fraire on 05-08-2023 Calcium [Mass/Vol] 10.4 mg/dL 8.5-10.1 [facility] Serum or plasma creatinine m easurement (mass/volume)Ordered By: Freddie Fraire on 05-08-2023 Creatinine [Mass/Vol] 1.23 mg/dL 0.55-1.02 [facility] Comment on above: The validity of the calculated GFR & GFRAA in patients over 70 years has not been determined. Clinical correlation is essential. Serum or plasma thyroid stim ulating hormone (TSH) measurement (units/volume)Ordered By: Freddie Fraire on 05-08-2023 TSH Qn 1.28 uIU/mL 0.358-3.74 [facility] Serum or plasma thyroxine (T 4) measurement (mass/volume)Ordered By: Freddie Fraire on 05-08-2023 T4 [Mass/Vol] 8.7 ug/dL 4.8-13.9 [facility] Serum or plasma urea nitroge n measurement (mass/volume)Ordered By: Freddie Fraire on 05-08-2023 Urea nitrogen [Mass/Vol] 27 mg/dL 7-18 [facility] Thin prep Papanicolaou smear with manual screeningOrdered By: Freddie Fraire on 05-08-2023 Thin prep Papanicolaou smear with manual screening 3.3 g/dL 3.2-5.0 [facility] Thin prep Papanicolaou smear with manual screening 23 U/L 15-37 [facility] Thin prep Papanicolaou smear with manual screening 5 5-15 [facility] No Panel InformationOrdered By: Dayne Richey on 04-30-2023 Adrenocorticotropic Hormone < 1.5 pg/mL 7.2-63.3 [facility] Comment on above: ACTH reference inter digna for samples collected between 7 and10 AM.Performed at: [facility] [address] [id number] Director: Chad Haskins PhD, Phone: [phone] Serum or plasma cortisol luisito surement (mass/volume)Ordered By: Dayne Richey on 04-30-2023 Cortisol [Mass/Vol] 2.40 ug/dL 3.44-22.45 [facility] Comment on above: Adult (AM) 5.27 - 22 .45 ug/dL Adult (PM) 3.44 - 16.76 ug/dLPlease note revised CORTISOL reference range effective 2019. CNOVSPon 04-25-2023 CNOVSP Visit (SP) Office (HEMAWS) ANH EWING ([id number]) 1955 F T Date Time Provider Department 04/25/23 10:30 AM ARIC GUERRIER During your visit today, we recorded the following information about you: Temperature Pulse Blood pressure Weight 97.1 degrees 60/minute 105/70 122.2 kg Height 1.642 m Aric Guerrier MD 04/25/2023 3:47 PM Signed HISTORY OF [...] than HPI (more content not included)... Normal [facility] Absolute lymphocyte countOrd ered By: Rickie Hale on 04-09-2023 Lymphocytes Auto (Unsp spec) [#/Vol] 2.06 10*3/uL 0.83-4.51 [facility] Automated lymphocyte count a s percentage of total leukocytesOrdered By: Rickie Hale on 04-09-2023 Lymphocytes/100 WBC Auto (Unsp spec) 18.2 % 19-41 [facility] Basophil percentageOrdered B y: Rickie Hale on 04-09-2023 Basophils/100 WBC (Bld) 0.3 % 0-1 [facility] Chloride [Moles/Vol] 104 mmol/L 98-107 [facility] Eosinophils/100 WBC (Bld) 0.6 % 0-5 [facility] Glucose [Mass/Vol] 111 mg/dL 74-106 [facility] Comment on above: Fasting Glucose resu lt from 100 to 125 mg/dL suggests IMPAIRED HOMEOSTASIS per A.D.A. criteria. Hemoglobin (Bld) [Mass/Vol] 10.2 g/dL 12.0-15.0 [facility] Monocytes/100 WBC (Bld) 10.4 % 0-10 [facility] Neutrophils (Bld) [#/Vol] 7.9 10*3/uL 2.0-7.7 [facility] Neutrophils/100 WBC (Bld) 69.4 % 47-70 [facility] Potassium [Moles/Vol] 3.5 mmol/L 3.5-5.1 [facility] Sodium [Moles/Vol] 136 mmol/L 136-145 [facility] WBC (Bld) [#/Vol] 11.3 10*3/uL 4.4-11.0 [facility] Determination of erythrocyte mean corpuscular volume (MCV)Ordered By: Rickie Hale on 04-09-2023 MCV (RBC) [Entitic vol] 87.3 fL 81-99 [facility] Erythrocyte distribution wid th ratioOrdered By: Rickie Hale on 04-09-2023 Erythrocyte distribution width (RBC) [Ratio] 15.0 % 11.6-14.6 [facility] Erythrocyte distribution wid th standard deviationOrdered By: Rickie Hale on 04-09-2023 Erythrocyte distribution width (RBC) [Entitic vol] 48.3 fL 35.1-43.9 [facility] Hematocrit Auto (Bld) [Volum e fraction]Ordered By: Rickie Hale on 04-09-2023 Hematocrit (Bld) [Volume fraction] 32.4 % 37-47 [facility] Immature granulocytes/100 WB C Auto (Bld)Ordered By: Rickie Hale on 04-09-2023 Immature granulocytes/100 WBC (Bld) 1.100 % 0.0-0.9 [facility] Comment on above: IG% - Immature Granu locytes (promyelocytes, myelocytes and metamyelocytes) > 1% indicates that a LEFT SHIFT is Present. Laboratory - Chemistry and C hemistry - challengeOrdered By: Rickie Hale on 04-09-2023 CO2 [Moles/Vol] 27.0 mmol/L 21.0-32.0 [facility] Urea nitrogen/Creatinine [Mass ratio] 28.0 mg/mg 10-20 [facility] Laboratory - Hematology and Cell countsOrdered By: Rickie Hale on 04-09-2023 MCH (RBC) [Entitic mass] 27.5 pg 27.0-32.0 [facility] MCHC (RBC) [Mass/Vol] 31.5 g/dL 32-36 [facility] Nucleated RBC/100 WBC (Bld) [Ratio] 0 % 0-5 [facility] Platelets (Bld) [#/Vol] 273 10*3/uL 150-450 [facility] No Panel InformationOrdered By: Rickie Hale on 04-09-2023 Estimated Creatinine Clearance Calc 56.02 ml/min [facility] Estimated GFR (MDRD) Amer 55 mL/min >60 [facility] Comment on above: GFR Calc Estimated GFR (MDRD) Non-Af Amer 45 mL/min >60 [facility] Comment on above: Non- GFR Calc Platelet mean volume Jaun-Ec ker (Bld) [Entitic vol]Ordered By: Rickie Hale on 04-09-2023 Platelet mean volume (Bld) [Entitic vol] 9.0 fL 6.2-12.0 [facility] RBC Auto (Bld) [#/Vol]Ordere d By: Rickie Hale on 04-09-2023 RBC (Bld) [#/Vol] 3.71 10*6/uL 4.2-5.4 [facility] Serum or plasma calcium griffin urement (mass/volume)Ordered By: Rickie Hale on 04-09-2023 Calcium [Mass/Vol] 10.0 mg/dL 8.5-10.1 [facility] Serum or plasma creatinine m easurement (mass/volume)Ordered By: Rickie Hale on 04-09-2023 Creatinine [Mass/Vol] 1.25 mg/dL 0.55-1.02 [facility] Comment on above: The validity of the calculated GFR & GFRAA in patients over 70 years has not been determined. Clinical correlation is essential. Serum or plasma urea nitroge n measurement (mass/volume)Ordered By: Rickie Hale on 04-09-2023 Urea nitrogen [Mass/Vol] 35 mg/dL 7-18 [facility] Thin prep Papanicolaou smear with manual screeningOrdered By: Rickie Hale on 04-09-2023 Thin prep Papanicolaou smear with manual screening 5 5-15 [facility] Absolute lymphocyte countOrd ered By: Rickie Hale on 04-08-2023 Lymphocytes Auto (Unsp spec) [#/Vol] 2.28 10*3/uL 0.83-4.51 [facility] Activated partial thrombopla stin time (aPTT) in platelet poor plasma by coagulation aOrdered By: Arlene Acevedo on 04-08-2023 aPTT Coag (PPP) [Time] 56.0 s 24.1-36.2 [facility] Automated lymphocyte count a s percentage of total leukocytesOrdered By: Rickie Hale on 04-08-2023 Lymphocytes/100 WBC Auto (Unsp spec) 16.9 % 19-41 [facility] Basophil percentageOrdered B y: Rickie Hale on 04-08-2023 Basophil percentage 2.3 mg/dL 2.5-4.9 [facility] Basophils/100 WBC (Bld) 0.4 % 0-1 [facility] Chloride [Moles/Vol] 104 mmol/L 98-107 [facility] Eosinophils/100 WBC (Bld) 0.1 % 0-5 [facility] Glucose [Mass/Vol] 119 mg/dL 74-106 [facility] Comment on above: Fasting Glucose resu lt from 100 to 125 mg/dL suggests IMPAIRED HOMEOSTASIS per A.D.A. criteria. Hemoglobin (Bld) [Mass/Vol] 9.8 g/dL 12.0-15.0 [facility] Monocytes/100 WBC (Bld) 11.7 % 0-10 [facility] Neutrophils (Bld) [#/Vol] 9.5 10*3/uL 2.0-7.7 [facility] Neutrophils/100 WBC (Bld) 70.1 % 47-70 [facility] Potassium [Moles/Vol] 3.5 mmol/L 3.5-5.1 [facility] Sodium [Moles/Vol] 137 mmol/L 136-145 [facility] WBC (Bld) [#/Vol] 13.5 10*3/uL 4.4-11.0 [facility] Blood manual differential co mment interpretation (narrative result)Ordered By: Rickie Hale on 04-08-2023 Manual differential comment Dami (Bld) [Interp] SCANNED [facility] Comment on above: MONOCYTOSIS PRESENT Determination of erythrocyte mean corpuscular volume (MCV)Ordered By: Rickie Hale on 04-08-2023 MCV (RBC) [Entitic vol] 88.4 fL 81-99 [facility] Erythrocyte distribution wid th ratioOrdered By: Rickie Hale on 04-08-2023 Erythrocyte distribution width (RBC) [Ratio] 15.0 % 11.6-14.6 [facility] Erythrocyte distribution wid th standard deviationOrdered By: Rickie Hale on 04-08-2023 Erythrocyte distribution width (RBC) [Entitic vol] 48.2 fL 35.1-43.9 [facility] Hematocrit Auto (Bld) [Volum e fraction]Ordered By: Rickie Hale on 04-08-2023 Hematocrit (Bld) [Volume fraction] 30.4 % 37-47 [facility] Immature granulocytes/100 WB C Auto (Bld)Ordered By: Rickie Hale on 04-08-2023 Immature granulocytes/100 WBC (Bld) 0.800 % 0.0-0.9 [facility] Comment on above: IG% - Immature Granu locytes (promyelocytes, myelocytes and metamyelocytes) > 1% indicates that a LEFT SHIFT is Present. Laboratory - Chemistry and C hemistry - challengeOrdered By: Rickie Hale on 04-08-2023 CO2 [Moles/Vol] 26.0 mmol/L 21.0-32.0 [facility] Magnesium [Mass/Vol] 1.9 mg/dL 1.6-2.6 [facility] Urea nitrogen/Creatinine [Mass ratio] 33.1 mg/mg 10-20 [facility] Laboratory - Hematology and Cell countsOrdered By: Rickie Hale on 04-08-2023 MCH (RBC) [Entitic mass] 28.5 pg 27.0-32.0 [facility] MCHC (RBC) [Mass/Vol] 32.2 g/dL 32-36 [facility] Nucleated RBC/100 WBC (Bld) [Ratio] 0.1 % 0-5 [facility] Platelets (Bld) [#/Vol] 253 10*3/uL 150-450 [facility] No Panel InformationOrdered By: Rickie Hale on 04-08-2023 Estimated Creatinine Clearance Calc 57.87 ml/min [facility] Estimated GFR (MDRD) Amer 57 mL/min >60 [facility] Comment on above: GFR Calc Estimated GFR (MDRD) Non-Af Amer 47 mL/min >60 [facility] Comment on above: Non- GFR Calc Platelet mean volume Jaun-Ec ker (Bld) [Entitic vol]Ordered By: Rickie Hale on 04-08-2023 Platelet mean volume (Bld) [Entitic vol] 9.5 fL 6.2-12.0 [facility] RBC Auto (Bld) [#/Vol]Ordere d By: Rickie Hale on 04-08-2023 RBC (Bld) [#/Vol] 3.44 10*6/uL 4.2-5.4 [facility] Review by pathologistOrdered By: Rickie Hale on 04-08-2023 Pathologist review Dami (Unsp spec) [Interp] Yana arvizu [facility] Pathologist review Dami (Unsp spec) [Interp] Reviewed [facility] Comment on above: Previous reported re sult: Yana arvizu Edited by: RGOOD on 04/09/23:1429Neutrophilic leukocytosis.Normocytic anemia.Clinical correlation necessary.Shmuel White M.D. 04/09/23 AMENDED REPORT 04/09/23 1429 PATH REV previously reported as: Yana nolberto Serum or plasma calcium griffin urement (mass/volume)Ordered By: Rickie Hale on 04-08-2023 Calcium [Mass/Vol] 9.6 mg/dL 8.5-10.1 [facility] Serum or plasma creatinine m easurement (mass/volume)Ordered By: Rickie Hale on 04-08-2023 Creatinine [Mass/Vol] 1.21 mg/dL 0.55-1.02 [facility] Comment on above: The validity of the calculated GFR & GFRAA in patients over 70 years has not been determined. Clinical correlation is essential. Serum or plasma urea nitroge n measurement (mass/volume)Ordered By: Rickie Hale on 04-08-2023 Urea nitrogen [Mass/Vol] 40 mg/dL 7-18 [facility] Thin prep Papanicolaou smear with manual screeningOrdered By: Rickie Hale on 04-08-2023 Thin prep Papanicolaou smear with manual screening 7 5-15 [facility] Toxic leukocyte granulation detectionOrdered By: Thor Alfred on 04-07-2023 Toxic granules LM Ql (Bld) 1+ [facility] Absolute lymphocyte countOrd ered By: Arlene Acevedo on 04-06-2023 Lymphocytes Auto (Unsp spec) [#/Vol] 1.48 10*3/uL 0.83-4.51 [facility] Activated partial thrombopla stin time (aPTT) in platelet poor plasma by coagulation aOrdered By: Arlene Acevedo on 04-06-2023 aPTT Coag (PPP) [Time] 35.6 s 24.1-36.2 [facility] Automated lymphocyte count a s percentage of total leukocytesOrdered By: Arlene Acevedo on 04-06-2023 Lymphocytes/100 WBC Auto (Unsp spec) 9.9 % 19-41 [facility] Basophil percentageOrdered B y: Arlene Acevedo on 04-06-2023 Basophils/100 WBC (Bld) 0.3 % 0-1 [facility] Chloride [Moles/Vol] 100 mmol/L 98-107 [facility] Eosinophils/100 WBC (Bld) 0.0 % 0-5 [facility] Glucose [Mass/Vol] 136 mg/dL 74-106 [facility] Comment on above: Fasting Glucose resu lt greater than or equal to 126 mg/dL suggests DIABETES MELLITUS per A.D.A. criteria. Hemoglobin (Bld) [Mass/Vol] 11.8 g/dL 12.0-15.0 [facility] Monocytes/100 WBC (Bld) 10.8 % 0-10 [facility] Neutrophils (Bld) [#/Vol] 11.7 10*3/uL 2.0-7.7 [facility] Neutrophils/100 WBC (Bld) 78.5 % 47-70 [facility] Potassium [Moles/Vol] 3.5 mmol/L 3.5-5.1 [facility] Comment on above: Slight Hemolysis, Re sult may be falsely increased. Sodium [Moles/Vol] 134 mmol/L 136-145 [facility] WBC (Bld) [#/Vol] 14.9 10*3/uL 4.4-11.0 [facility] Blood manual differential co mment interpretation (narrative result)Ordered By: Arlene Acevedo on 04-06-2023 Manual differential comment Dami (Bld) [Interp] SCANNED [facility] Determination of erythrocyte mean corpuscular volume (MCV)Ordered By: Arlene Acevedo on 04-06-2023 MCV (RBC) [Entitic vol] 89.3 fL 81-99 [facility] Erythrocyte distribution wid th ratioOrdered By: Arlene Acevedo on 04-06-2023 Erythrocyte distribution width (RBC) [Ratio] 14.7 % 11.6-14.6 [facility] Erythrocyte distribution wid th standard deviationOrdered By: Arlene Acevedo on 04-06-2023 Erythrocyte distribution width (RBC) [Entitic vol] 47.7 fL 35.1-43.9 [facility] Hematocrit Auto (Bld) [Volum e fraction]Ordered By: Arlene Acevdeo on 04-06-2023 Hematocrit (Bld) [Volume fraction] 35.9 % 37-47 [facility] Immature granulocytes/100 WB C Auto (Bld)Ordered By: Arlene Acevedo on 04-06-2023 Immature granulocytes/100 WBC (Bld) 0.500 % 0.0-0.9 [facility] Comment on above: IG% - Immature Granu locytes (promyelocytes, myelocytes and metamyelocytes) > 1% indicates that a LEFT SHIFT is Present. International normalized rat io (INR) calculationOrdered By: Arlene Acevedo on 04-06-2023 INR Coag (PPP) [Relative time] 1.4 {INR} [facility] Laboratory - Chemistry and C hemistry - challengeOrdered By: [facility] on 04-06-2023 CO2 [Moles/Vol] 25.0 mmol/L 21.0-32.0 [facility] Natriuretic peptide B (Bld) [Mass/Vol] 580.7 pg/mL 0-100 [facility] Urea nitrogen/Creatinine [Mass ratio] 15.0 mg/mg 10-20 [facility] Laboratory - CoagulationOrde red By: Arlene Acevedo on 04-06-2023 PT Coag (PPP) [Time] 16.9 s 11.7-14.9 [facility] Laboratory - Hematology and Cell countsOrdered By: Arlene Acevedo on 04-06-2023 MCH (RBC) [Entitic mass] 29.4 pg 27.0-32.0 [facility] MCHC (RBC) [Mass/Vol] 32.9 g/dL 32-36 [facility] Nucleated RBC/100 WBC (Bld) [Ratio] 0 % 0-5 [facility] Platelets (Bld) [#/Vol] 209 10*3/uL 150-450 [facility] Laboratory - Microbiology an d Antimicrobial susceptibilityOrdered By: [facility] Ace[facility] on 04-06-2023 Bacteria identified Cx Nom (Bld) No growth in 5 days. [facility] SARS-CoV-2 (COVID-19) RNA BOB+probe Ql (Unsp spec) [facility] No Panel InformationOrdered By: Arlene Acevedo on 04-06-2023 D-Dimer Quantitative (PE/DVT) 7.15 FEU/ug/m 0.27-0.49 [facility] Comment on above: D-Dimer ELEVATED (>0 .49): Additional studies and clinicalassessments are indicated to conclude diagnosis of:Deep Vein Thrombosis (DVT) or Pulmonary Embolism (PE)CRITICAL VALUE VERIFIED. CALLED TO ELISSA MEADE04/06/23 1030 Kelsey Clarke.RESULTS READ BACK BY SAME . Estimated Creatinine Clearance Calc 42.11 ml/min [facility] Estimated GFR (MDRD) Amer 39 mL/min >60 [facility] Comment on above: GFR Calc Estimated GFR (MDRD) Non-Af Amer 32 mL/min >60 [facility] Comment on above: Non- GFR Calc Troponin I High Sensitivity 122 pg/mL 3.0-54.0 [facility] Comment on above: Critical Result(s) C alled at: 10:12:57 04/06/2023 by: Frances Rivera to [facility]. Results read back by same. Please Note: New Test Units and Gender Specific Reference Ranges. For more information see Policy Stat Procedure Opp High Sensitivity Troponin (TNIH) and attachments. Platelet mean volume Jaun-Ec ker (Bld) [Entitic vol]Ordered By: Arlene Acevedo on 04-06-2023 Platelet mean volume (Bld) [Entitic vol] 9.3 fL 6.2-12.0 [facility] RBC Auto (Bld) [#/Vol]Ordere d By: Arlene Acevedo on 04-06-2023 RBC (Bld) [#/Vol] 4.02 10*6/uL 4.2-5.4 [facility] Review by pathologistOrdered By: Arlene Acevedo on 04-06-2023 Pathologist review Dami (Unsp spec) [Interp] May foll [facility] Serum or plasma calcium griffin urement (mass/volume)Ordered By: Arlene Acevedo on 04-06-2023 Calcium [Mass/Vol] 10.7 mg/dL 8.5-10.1 [facility] Serum or plasma creatinine m easurement (mass/volume)Ordered By: Arlene Acevedo on 04-06-2023 Creatinine [Mass/Vol] 1.67 mg/dL 0.55-1.02 [facility] Comment on above: The validity of the calculated GFR & GFRAA in patients over 70 years has not been determined. Clinical correlation is essential. Serum or plasma urea nitroge n measurement (mass/volume)Ordered By: Arlene Acevedo on 04-06-2023 Urea nitrogen [Mass/Vol] 25 mg/dL 7-18 [facility] Thin prep Papanicolaou smear with manual screeningOrdered By: Arlene Acevedo on 04-06-2023 Thin prep Papanicolaou smear with manual screening 9 5-15 [facility] Absolute lymphocyte countOrd ered By: Mati Mccann on 04-03-2023 Lymphocytes Auto (Unsp spec) [#/Vol] 2.15 10*3/uL 0.83-4.51 [facility] Automated lymphocyte count a s percentage of total leukocytesOrdered By: Mati Mccann on 04-03-2023 Lymphocytes/100 WBC Auto (Unsp spec) 18.9 % 19-41 [facility] Basophil percentageOrdered B y: Mati Mccann on 04-03-2023 Basophils/100 WBC (Bld) 0.5 % 0-1 [facility] Chloride [Moles/Vol] 108 mmol/L 98-107 [facility] Eosinophils/100 WBC (Bld) 0.4 % 0-5 [facility] Glucose [Mass/Vol] 113 mg/dL 74-106 [facility] Comment on above: Fasting Glucose resu lt from 100 to 125 mg/dL suggests IMPAIRED HOMEOSTASIS per A.D.A. criteria. Hemoglobin (Bld) [Mass/Vol] 11.6 g/dL 12.0-15.0 [facility] Monocytes/100 WBC (Bld) 11.2 % 0-10 [facility] Neutrophils (Bld) [#/Vol] 7.8 10*3/uL 2.0-7.7 [facility] Neutrophils/100 WBC (Bld) 68.6 % 47-70 [facility] Potassium [Moles/Vol] 3.5 mmol/L 3.5-5.1 [facility] Sodium [Moles/Vol] 139 mmol/L 136-145 [facility] WBC (Bld) [#/Vol] 11.4 10*3/uL 4.4-11.0 [facility] Determination of erythrocyte mean corpuscular volume (MCV)Ordered By: Mati Mccann on 04-03-2023 MCV (RBC) [Entitic vol] 90.0 fL 81-99 [facility] Erythrocyte distribution wid th ratioOrdered By: Mati Ramy on 04-03-2023 Erythrocyte distribution width (RBC) [Ratio] 14.7 % 11.6-14.6 [facility] Erythrocyte distribution wid th standard deviationOrdered By: [facility] on 04-03-2023 Erythrocyte distribution width (RBC) [Entitic vol] 47.5 fL 35.1-43.9 [facility] Hematocrit Auto (Bld) [Volum e fraction]Ordered By: Mati Ramy on 04-03-2023 Hematocrit (Bld) [Volume fraction] 37.0 % 37-47 [facility] Immature granulocytes/100 WB C Auto (Bld)Ordered By: [facility] on 04-03-2023 Immature granulocytes/100 WBC (Bld) 0.400 % 0.0-0.9 [facility] Comment on above: IG% - Immature Granu locytes (promyelocytes, myelocytes and metamyelocytes) > 1% indicates that a LEFT SHIFT is Present. Laboratory - Chemistry and C hemistry - challengeOrdered By: Mati Ramy on 04-03-2023 CO2 [Moles/Vol] 26.0 mmol/L 21.0-32.0 [facility] Natriuretic peptide B (Bld) [Mass/Vol] 338.1 pg/mL 0-100 [facility] Urea nitrogen/Creatinine [Mass ratio] 19.2 mg/mg 10-20 [facility] Laboratory - Hematology and Cell countsOrdered By: Mati Ramy on 04-03-2023 MCH (RBC) [Entitic mass] 28.2 pg 27.0-32.0 [facility] MCHC (RBC) [Mass/Vol] 31.4 g/dL 32-36 [facility] Nucleated RBC/100 WBC (Bld) [Ratio] 0 % 0-5 [facility] Platelets (Bld) [#/Vol] 153 10*3/uL 150-450 [facility] No Panel InformationOrdered By: Matiheather Mccann on 04-03-2023 Estimated GFR (MDRD) Amer 52 mL/min >60 [facility] Comment on above: GFR Calc Estimated GFR (MDRD) Non-Af Amer 43 mL/min >60 [facility] Comment on above: Non- GFR Calc Platelet mean volume Jaun-Ec ker (Bld) [Entitic vol]Ordered By: Mati Mcacnn on 04-03-2023 Platelet mean volume (Bld) [Entitic vol] 9.5 fL 6.2-12.0 [facility] RBC Auto (Bld) [#/Vol]Ordere d By: Mati Mccann on 04-03-2023 RBC (Bld) [#/Vol] 4.11 10*6/uL 4.2-5.4 [facility] Serum or plasma calcium griffin urement (mass/volume)Ordered By: Mati Mccann on 04-03-2023 Calcium [Mass/Vol] 10.8 mg/dL 8.5-10.1 [facility] Serum or plasma creatinine m easurement (mass/volume)Ordered By: Mati Mccann on 04-03-2023 Creatinine [Mass/Vol] 1.30 mg/dL 0.55-1.02 [facility] Comment on above: The validity of the calculated GFR & GFRAA in patients over 70 years has not been determined. Clinical correlation is essential. Serum or plasma urea nitroge n measurement (mass/volume)Ordered By: Mati Mccann on 04-03-2023 Urea nitrogen [Mass/Vol] 25 mg/dL - [facility] Thin prep Papanicolaou smear with manual screeningOrdered By: Mati Mccann on 04-03-2023 Thin prep Papanicolaou smear with manual screening 5 5-15 [facility] ANES POSTPROC EVALon 023 ANES POSTPROC EVAL HNO ID: [id number] Author: Suzanne Gordon MD Service: ? Author Type: Anesthesiologist Type: Anesthesia Postprocedure Evaluation Filed: 02/28/2023 4:04 PM Note Text: POST ANESTHESIA EVALUATION NOTE : 1955 Procedure Summary Date: 02/28/23 Room / Location: [address] Anesthesia Start: 1408 Anesthesia Stop: 1459 [...] with this procedure. Documented by Kenyon Calzada APRN.ELECTRONICS REPAIR TECHNICIAN 02/28/2023 2:59 PM EST SIGNATURE: Suzanne Gordon MD PATIENT NAME: Anh Ewing DATE: February 28, 2023 TIME: 4:04 PM CSN: [id number] Normal [facility] ANES PRE-OPon 02-28-2023 ANES PRE-OP HNO ID: [id number] Author: Brian Galan MD Service: ? Author Type: Anesthesiologist Type: Anesthesia Preprocedure Evaluation Filed: 02/28/2023 2:46 PM Note Text: ANESTHESIOLOGY DAY OF SURGERY NOTE : 1955 Procedure Information Anesthesia Start Date/Time: 02/28/231407 Procedure: KERATOPLASTY ENDOTHELIAL DESCEMET MEMBRANE (DMEK) (Right: Eye) Location: [place] [address] / [facility] Surgeons: Kiran Gifford MD Estimated body mass index is 46.1 kg/m? as calculated from the following: Height as of 10/05/18: 165.1 cm (5' 5). Weight as of 10/05/18: 125.6 kg (277 [...] February 28, 2023 TIME: 2:45 PM CSN: [id number] Normal [facility] Fungus Spec Culton 3 Fungus identified Cx Nom (Unsp spec) CULTURE, FUNGAL: No Fungus isolated after 28 days Normal [facility] Comment on above: Performed By: #### 5 [id number] ####[facility] LABCLIA [id number] [place] [address] [place] OPERATIVE NOon 02-28-2023 OPERATIVE NO HNO ID: [id number] Author: Kiran Gifford MD Service: Ophthalmology Author Type: Physician Type: Operative Report Filed: 02/28/2023 3:02 PM Note Text: OPERATIVE/PROCEDURE REPORT OPHTHAMOLOGY LOG ID: [id number] SURGERY/PROCEDURE DATE: 02/28/2023 INCISION/PROCEDURE START TIME: 2:25 PM INCISION CLOSE/PROCEDURE END TIME: 2:51 PM SURGEON(S)/PROCEDURAL IST(S) AND LOCKER ROOM CLERK(S): Surgeon(s) and Role: * Kiran Gifford MD - Primary PROCEDURE(S): Procedure(s) (LRB): KERATOPLASTY ENDOTHELIAL DESCEMET MEMBRANE (DMEK) (Right) PREOPERATIVE DIAGNOSIS: Fuchs endothelial dystrophy, right eye POST-OP/POST-PROCEDUR E DIAGNOSIS: Same as Preop OPERATIVE INDICATIONS: Blurred [...] surface was then swept, now in a [id number] fashion to evacuate any interface fluid from [...] Implant Name Type Inv. Item Serial No. Director Adult Lot No. LRB No. Used Action Model No. CORNEA TISSUE PRE-LOADED DMEK - [id number] Cornea CORNEA TISSUE PRE-LOADED DMEK [id number] [facility] Right 1 Implanted CORNEA TISSUE FEE GAS ISPAN CONSTELLATION INTRAOCULAR VISION SYSTEM SF6 125GM - [id number] Implant GAS ISPAN CONSTELLATION INTRAOCULAR VISION SYSTEM SF6 125GM [facility] [id number] Right 1 Implanted [id number] Ocular Co-Morbidities: No Intra-operative Complications None I/primary surgeon/proceduralist performed the entire procedure. SIGNATURE: Kiran Gifford MD PATIENT NAME: Anh Ewing DATE: February 28, 2023 TIME: 3:01 PM PAGER/CONTACT #: [phone] Normal [facility] SURGICAL PATHOLOGYon 023 CASE REPORT Normal [facility] Comment on above: Order Comment: Speci men Type: TISSUE SPECIMENOrdering Facility: [facility] Address: [address] [place] [address] Result Comment: Surg ica Pathology Report Case: [id number] Authorizing Provider: Kiran Gifford MD Collected: 02/28/2023 02:42 PM Ordering Location: Ophthalmology Received: 02/28/2023 10:40 PM Pathologist: Miranda Roach MD Specimen: CORNEA RIGHT Performed By: #### S ####[facility] LABCLIA [id number] [place] [address] [place] CLINICAL HISTORY corneal swelling - herpetic? surgical trauma? Normal [facility] Comment on above: Order Comment: Speci men Type: TISSUE SPECIMENOrdering Facility: [facility] Address: [address] [place] [address] Performed By: #### S ####[facility] LABCLIA [id number] [address] [place] DIAGNOSIS COMMENT PAS highlights Descemet membrane. Normal [facility] Comment on above: Order Comment: Speci men Type: TISSUE SPECIMENOrdering Facility: [facility] Address: [address] [place] [address] Performed By: #### S ####[facility] LABCLIA [id number] [place] [address] [place] FINAL DIAGNOSIS Normal [facility] Comment on above: Order Comment: Speci men Type: TISSUE SPECIMENOrdering Facility: [facility] Address: [address] [place] [address] Result Comment: Eye, right cornea, keratoplasty - Descemet membrane with endothelial cell loss. Performed By: #### S ####[facility] LABIA [id number] [address] [place] FINAL PERFORMING LAB Normal [facility] Comment on above: Order Comment: Speci men Type: TISSUE SPECIMENOrdering Facility: [facility] Address: [address] [place] [address] Result Comment: Diag nostic interpretation performed at [facility], [address] [address] CLIA# [id number] Crepe Machine Operator: Royal Paz M.D. Performed By: #### S ####[facility] LABIA [id number] [place] [address] [place] GROSS DESCRIPTION A. CORNEA RIGHT Normal [facility] Comment on above: Order Comment: Speci men Type: TISSUE SPECIMENOrdering Facility: [facility] Address: [address] [place] [address] Result Comment: Rece ived in formalin designated cornea right is an irregular transparent segment of tissue which measures 0.7 x 0.4 by less than 0.1 cm. The specimen is not sectioned and is totally submitted in 1 cassette. BF March 03, 2023 9:10 AM Gross examination performed at [facility], [address] [place] [address] Performed By: #### S ####[facility] LABCLIA [id number] [id number] STATES OF [facility] Absolute lymphocyte countOrd ered By: Moni Velásquez on 02-17-2023 Lymphocytes Auto (Unsp spec) [#/Vol] 2.48 10*3/uL 0.83-4.51 [facility] Basophil percentageOrdered B y: Moni Velásquez on 02-17-2023 Basophils/100 WBC (Bld) 0.8 % 0-1 [facility] Bilirubin [Mass/Vol] 0.60 mg/dL 0.20-1.00 [facility] Comment on above: For patients on eltr ombopag therapy, use of Dimension Opp TBIL is not recommended. Chloride [Moles/Vol] 108 mmol/L 98-107 [facility] Cholesterol [Mass/Vol] 206 mg/dL <200 [facility] Comment on above: <200 mg/dL Desirable 200-240 mg/dL Borderline >240 mg/dL High Risk Eosinophils/100 WBC (Bld) 0.9 % 0-5 [facility] Glucose [Mass/Vol] 101 mg/dL 74-106 [facility] Comment on above: Fasting Glucose resu lt from 100 to 125 mg/dL suggests IMPAIRED HOMEOSTASIS per A.D.A. criteria. Neutrophils (Bld) [#/Vol] 5.1 10*3/uL 2.0-7.7 [facility] Neutrophils/100 WBC (Bld) 57.6 % 47-70 [facility] Potassium [Moles/Vol] 4.1 mmol/L 3.5-5.1 [facility] Protein [Mass/Vol] 7.4 g/dL 6.4-8.2 [facility] Sodium [Moles/Vol] 141 mmol/L 136-145 [facility] Triglyceride [Mass/Vol] 199 mg/dL <199 [facility] Comment on above: The drugs N-Acetylcy steine and Metamizole may falsely depress this assay.Serum Triglycerides Reference Interval Normal <150 mg/dL Borderline high 150 - 199 mg/dL High 200 - 499 mg/dL Very High > or = 500 mg/dL WBC (Bld) [#/Vol] 8.8 10*3/uL 4.4-11.0 [facility] Blood erythrocytes count (nu mber/volume)Ordered By: Moni Velásquez on 02-17-2023 RBC (Bld) [#/Vol] 4.33 10*6/uL 4.2-5.4 [facility] Blood hemoglobin measurement (mass/volume)Ordered By: Moni Velásquez on 02-17-2023 Hemoglobin (Bld) [Mass/Vol] 12.7 g/dL 12.0-15.0 [facility] Blood lymphocytes/100 leukoc ytesOrdered By: alanaphoenixkillian Velásquez on 02-17-2023 Lymphocytes/100 WBC (Bld) 28.1 % 19-41 [facility] Blood monocytes/100 leukocyt esOrdered By: [facility] Vel[facility]quez on 02-17-2023 Monocytes/100 WBC (Bld) 12.1 % 0-10 [facility] Blood platelet mean volumeOr dered By: Moni Velásquez on 02-17-2023 Platelet mean volume (Bld) [Entitic vol] 9.6 fL 6.2-12.0 [facility] Determination of erythrocyte mean corpuscular volume (MCV)Ordered By: Moni Velásquez on 02-17-2023 MCV (RBC) [Entitic vol] 94.0 fL 81-99 [facility] Hematocrit Auto (Bld) [Volum e fraction]Ordered By: Moni Velásquez on 02-17-2023 Hematocrit (Bld) [Volume fraction] 40.7 % 37-47 [facility] Laboratory - Chemistry and C hemistry - challengeOrdered By: Moni Velásquez on 02-17-2023 ALP [Catalytic activity/Vol] 79 U/L 45-117 [facility] ALT [Catalytic activity/Vol] 23 U/L 13-56 [facility] CO2 [Moles/Vol] 26.0 mmol/L 21.0-32.0 [facility] Globulin (S) [Mass/Vol] 4.1 g/dL 2.2-4.2 [facility] Urea nitrogen/Creatinine [Mass ratio] 21.7 mg/mg 10-20 [facility] Laboratory - Hematology and Cell countsOrdered By: Moni Velásquez on 02-17-2023 Erythrocyte distribution width (RBC) [Entitic vol] 50.0 fL 35.1-43.9 [facility] Erythrocyte distribution width (RBC) [Ratio] 14.5 % 11.6-14.6 [facility] Immature granulocytes/100 WBC (Bld) 0.500 % 0.0-0.9 [facility] Comment on above: IG% - Immature Granu locytes (promyelocytes, myelocytes and metamyelocytes) > 1% indicates that a LEFT SHIFT is Present. MCH (RBC) [Entitic mass] 29.3 pg 27.0-32.0 [facility] Nucleated RBC/100 WBC (Bld) [Ratio] 0 % 0-5 [facility] MCHC Auto (RBC) [Mass/Vol]Or dered By: Moni Velásquez on 02-17-2023 MCHC (RBC) [Mass/Vol] 31.2 g/dL 32-36 [facility] No Panel InformationOrdered By: Moni Velásquez on 02-17-2023 Estimated GFR (MDRD) Amer 57 mL/min >60 [facility] Comment on above: GFR Calc Estimated GFR (MDRD) Non-Af Amer 48 mL/min >60 [facility] Comment on above: Non- GFR Calc Platelets bldOrdered By: Eduin Velásquez on 02-17-2023 Platelets (Bld) [#/Vol] 246 10*3/uL 150-450 [facility] Serum or plasma albumin griffin urement (mass/volume)Ordered By: Moni Velásquez on 02-17-2023 Albumin [Mass/Vol] 3.3 g/dL 3.2-5.0 [facility] Serum or plasma albumin/glob ulin mass ratioOrdered By: Moni Velásquez on 02-17-2023 Albumin/Globulin [Mass ratio] 0.8 {ratio} 0.9-2.4 [facility] Serum or plasma calcium griffin urement (mass/volume)Ordered By: Moni Velásquez on 02-17-2023 Calcium [Mass/Vol] 9.8 mg/dL 8.5-10.1 [facility] Serum or plasma cholesterol in HDL measurement (mass/volume)Ordered By: Moni Velásquez on 02-17-2023 Cholesterol in HDL [Mass/Vol] 51 mg/dL >40 [facility] Comment on above: The drugs N-Acetylcy steine and Metamizole may falsely depress this assay. Reference Range HDL <40 mg/dL Low HDL Cholesterol HDL >or= 60 mg/dL High HDL Cholesterol Serum or plasma cholesterol in VLDL measurement (mass/volume)Ordered By: Moni Velásquez on 02-17-2023 Cholesterol in VLDL [Mass/Vol] 40 mg/dL 5-40 [facility] Serum or plasma creatinine m easurement (mass/volume)Ordered By: Moni Velásquez on 02-17-2023 Creatinine [Mass/Vol] 1.20 mg/dL 0.55-1.02 [facility] Comment on above: The validity of the calculated GFR & GFRAA in patients over 70 years has not been determined. Clinical correlation is essential. Serum or plasma low density lipoprotein (LDL) cholesterol measurement (mass/volume)Ordered By: Moni Velásquez on 02-17-2023 Cholesterol in LDL [Mass/Vol] 115 mg/dL 0-130 [facility] Serum or plasma urea nitroge n measurement (mass/volume)Ordered By: Moni Velásquez on 02-17-2023 Urea nitrogen [Mass/Vol] 26 mg/dL 7-18 [facility] Thin prep Papanicolaou smear with manual screeningOrdered By: Moni Velásquez on 02-17-2023 Thin prep Papanicolaou smear with manual screening 29 U/L 15-37 [facility] Thin prep Papanicolaou smear with manual screening 7 5-15 [facility] CNPNon 01-16-2023 CNPN Telephone ([facility]) ANH EWING ([id number]) 1955 F CHT Date Time Provider Department 01/16/23 KIRAN GIFFORD During your visit today, we recorded the following information about you: DevanteGoldie 01/16/2023 10:27 AM Signed Patient verified by name and . She has some questions and is asking for a phone call back at [phone]. Review and advise. Luciana Valencia OA 01/16/2023 3:56 PM Signed Spoke with the patient she stated that she is currently taking hydralazine and hydrochlorothiazide which she is under the care of [facility] to control her hypertension. Patient states she started these medications shortly before she started to experience the eye pain in the right eye. Patient spoke with the [facility] and they advised that she stop taking the hydrochlorothiazide to see if it helps with her eye pain. Patient is wondering if corneal edema in the right eye is a side affect of her hypertension medications. Please advise MARRY Nelson Mary Jean, RN 01/16/2023 4:37 PM Signed Will wait for Dr. Gifford to advise. Cherise Leija RN January 16, 2023 4:37 PM Kiran Gifford MD 01/20/2023 8:24 AM Signed Tabatha. These may causse dry eye by increasing water excretion from the body, but carolineley wsweling. She has a focal descemet ddtachment that expolains that Cherise Leija, MINI 01/20/2023 10:08 AM Signed Called and relayed Dr. Gifford's message to the patient. She voiced understanding and appreciation for name of what is causing her corneal swelling. Cherise Leija RN January 20, 2023 10:08 AM Allergies As of Date: 01/16/2023 Noted Allergy Reaction AMLODIPINE 08/07/2022 7 - Swelling HYDROXYCHLOROQUINE 07/04/2022 4 - Hives SULFA (SULFONAMIDE ANTIBIOTICS) 06/06/2017 4 - Hives Date Reviewed: 01/01/2023 Reviewed by: Kiran Gifford MD - Fully Assessed Reason for Visit: Patient Question [1477] Prescriptions as of 01/20/2023 - ganciclovir (ZIRGAN) [...] 02/14/2017 Gout [M10.9] 04/07/2018 Encounter Status:Closed by CHERISE LEIJA on 01/20/23 [facility] 12-27-2022 CNPN Telephone ([facility]) ANH EWING ([id number]) 1955 F T Date Time Provider Department 12/27/22 KIRAN GIFFORD OPHWTING During your visit today, we recorded the following information about you: Abbi Cole 12/27/2022 11:01 AM Signed Ptient called wanting to let you know she is having carpel tunnel surgery on 01/07 and didn't know if it would affect her eyes.Abbi Dahl Allergies As of Date: 12/27/2022 Noted Allergy [...] Gout [M10.9] 04/07/2018 Encounter Status:Closed by ABBI COLE on 12/27/22 Normal [facility] Absolute lymphocyte countOrd ered By: Andreina Cruz on 11-26-2022 Lymphocytes Auto (Unsp spec) [#/Vol] 2.19 10*3/uL 0.83-4.51 [facility] Basophil percentageOrdered B y: Andreina Cruz on 11-26-2022 Basophils/100 WBC (Bld) 1.4 % 0-1 [facility] Bilirubin [Mass/Vol] 0.50 mg/dL 0.20-1.00 [facility] Comment on above: For patients on eltr ombopag therapy, use of Dimension Opp TBIL is not recommended. Chloride [Moles/Vol] 110 mmol/L 98-107 [facility] Eosinophils/100 WBC (Bld) 1.8 % 0-5 [facility] Glucose [Mass/Vol] 109 mg/dL 74-106 [facility] Comment on above: Fasting Glucose resu lt from 100 to 125 mg/dL suggests IMPAIRED HOMEOSTASIS per A.D.A. criteria. Neutrophils (Bld) [#/Vol] 2.6 10*3/uL 2.0-7.7 [facility] Neutrophils/100 WBC (Bld) 45.7 % 47-70 [facility] Potassium [Moles/Vol] 3.8 mmol/L 3.5-5.1 [facility] Protein [Mass/Vol] 7.1 g/dL 6.4-8.2 [facility] Sodium [Moles/Vol] 141 mmol/L 136-145 [facility] WBC (Bld) [#/Vol] 5.6 10*3/uL 4.4-11.0 [facility] Blood erythrocytes count (nu mber/volume)Ordered By: Andreina Cruz on 11-26-2022 RBC (Bld) [#/Vol] 4.47 10*6/uL 4.2-5.4 [facility] Blood hemoglobin measurement (mass/volume)Ordered By: Andreina Cruz on 11-26-2022 Hemoglobin (Bld) [Mass/Vol] 12.9 g/dL 12.0-15.0 [facility] Blood lymphocytes/100 leukoc ytesOrdered By: Andreina Cruz on 11-26-2022 Lymphocytes/100 WBC (Bld) 39.0 % 19-41 [facility] Blood monocytes/100 leukocyt esOrdered By: Andreina Cruz on 11-26-2022 Monocytes/100 WBC (Bld) 11.9 % 0-10 [facility] Blood platelet mean volumeOr dered By: Andreina Cruz on 11-26-2022 Platelet mean volume (Bld) [Entitic vol] 9.8 fL 6.2-12.0 [facility] Determination of erythrocyte mean corpuscular volume (MCV)Ordered By: Andreina Cruz on 11-26-2022 MCV (RBC) [Entitic vol] 94.0 fL 81-99 [facility] Hematocrit Auto (Bld) [Volum e fraction]Ordered By: Andreina Cruz on 11-26-2022 Hematocrit (Bld) [Volume fraction] 42.0 % 37-47 [facility] Laboratory - Chemistry and C hemistry - challengeOrdered By: [facility] on 11-26-2022 ALP [Catalytic activity/Vol] 89 U/L 45-117 [facility] ALT [Catalytic activity/Vol] 20 U/L 13-56 [facility] CO2 [Moles/Vol] 26.0 mmol/L 21.0-32.0 [facility] Globulin (S) [Mass/Vol] 3.9 g/dL 2.2-4.2 [facility] Urea nitrogen/Creatinine [Mass ratio] 18.0 mg/mg 10-20 [facility] Laboratory - Hematology and Cell countsOrdered By: Andreinaalla Cruz on 11-26-2022 Erythrocyte distribution width (RBC) [Entitic vol] 49.1 fL 35.1-43.9 [facility] Erythrocyte distribution width (RBC) [Ratio] 14.5 % 11.6-14.6 [facility] Immature granulocytes/100 WBC (Bld) 0.200 % 0.0-0.9 [facility] Comment on above: IG% - Immature Granu locytes (promyelocytes, myelocytes and metamyelocytes) > 1% indicates that a LEFT SHIFT is Present. MCH (RBC) [Entitic mass] 28.9 pg 27.0-32.0 [facility] Nucleated RBC/100 WBC (Bld) [Ratio] 0 % 0-5 [facility] MCHC Auto (RBC) [Mass/Vol]Or dered By: Andreinaalla Cruz on 11-26-2022 MCHC (RBC) [Mass/Vol] 30.7 g/dL 32-36 [facility] No Panel InformationOrdered By: Andreina Cruz on 11-26-2022 Estimated GFR (MDRD) Amer 63 mL/min >60 [facility] Comment on above: GFR Calc Estimated GFR (MDRD) Non-Af Amer 52 mL/min >60 [facility] Comment on above: Non- GFR Calc Platelets bldOrdered By: Denise Cruz on 11-26-2022 Platelets (Bld) [#/Vol] 216 10*3/uL 150-450 [facility] Serum or plasma albumin griffin urement (mass/volume)Ordered By: Andreina Cruz on 11-26-2022 Albumin [Mass/Vol] 3.2 g/dL 3.2-5.0 [facility] Serum or plasma albumin/glob ulin mass ratioOrdered By: Andreina Cruz on 11-26-2022 Albumin/Globulin [Mass ratio] 0.8 {ratio} 0.9-2.4 [facility] Serum or plasma calcium griffin urement (mass/volume)Ordered By: Andreina Cruz on 11-26-2022 Calcium [Mass/Vol] 9.9 mg/dL 8.5-10.1 [facility] Serum or plasma creatinine m easurement (mass/volume)Ordered By: Andreina Cruz on 11-26-2022 Creatinine [Mass/Vol] 1.11 mg/dL 0.55-1.02 [facility] Comment on above: The validity of the calculated GFR & GFRAA in patients over 70 years has not been determined. Clinical correlation is essential. Serum or plasma urea nitroge n measurement (mass/volume)Ordered By: Andreina Cruz on 11-26-2022 Urea nitrogen [Mass/Vol] 20 mg/dL 7-18 [facility] Thin prep Papanicolaou smear with manual screeningOrdered By: Andreina Cruz on 11-26-2022 Thin prep Papanicolaou smear with manual screening 22 U/L 15-37 [facility] Thin prep Papanicolaou smear with manual screening 5 5-15 [facility] CNPNon 11-22-2022 CNPN Telephone ([facility]) PRADEEPANH ([id number]) 1955 F CHT Date Time Provider Department 11/22/22 KIRAN GIFFORD During your visit today, we recorded the following information about you: Luciana Valencia OA 11/22/2022 3:51 PM Signed [facility] [...] Date Reviewed: 10/05/2018 Reviewed by: Radha Jacobs (Alla), ALLA - Fully Assessed Reason for Visit: Appointment [...] Status:Closed by LUCIANA VALENCIA on 11/22/22 Normal [facility] Absolute lymphocyte countOrd ered By: Dr. Cruz on 08-29-2022 Lymphocytes Auto (Unsp spec) [#/Vol] 2.86 10*3/uL 0.83-4.51 [facility] Basophil percentageOrdered B y: Dr. Cruz on 08-29-2022 Basophils/100 WBC (Bld) 1.1 % 0-1 [facility] [facility] Bilirubin [Mass/Vol] 0.50 mg/dL 0.20-1.00 [facility] Comment on above: For patients on eltr ombopag therapy, use of Dimension Opp TBIL is not recommended. Chloride [Moles/Vol] 110 mmol/L 98-107 [facility] Eosinophils/100 WBC (Bld) 3.7 % 0-5 [facility] Glucose [Mass/Vol] 108 mg/dL 74-106 [facility] Comment on above: Fasting Glucose resu lt from 100 to 125 mg/dL suggests IMPAIRED HOMEOSTASIS per A.D.A. criteria. Neutrophils (Bld) [#/Vol] 2.2 10*3/uL 2.0-7.7 [facility] Neutrophils/100 WBC (Bld) 35.5 % 47-70 [facility] Potassium [Moles/Vol] 3.8 mmol/L 3.5-5.1 [facility] Protein [Mass/Vol] 7.3 g/dL 6.4-8.2 [facility] Sodium [Moles/Vol] 140 mmol/L 136-145 [facility] WBC (Bld) [#/Vol] 6.3 10*3/uL 4.4-11.0 [facility] Blood erythrocytes count (nu mber/volume)Ordered By: Dr. Cruz on 08-29-2022 RBC (Bld) [#/Vol] 4.45 10*6/uL 4.2-5.4 [facility] Blood hemoglobin measurement (mass/volume)Ordered By: Dr. Cruz on 08-29-2022 Hemoglobin (Bld) [Mass/Vol] 13.2 g/dL 12.0-15.0 [facility] Blood lymphocytes/100 leukoc ytesOrdered By: Dr. Cruz on 08-29-2022 Lymphocytes/100 WBC (Bld) 45.4 % 19-41 [facility] Blood monocytes/100 leukocyt esOrdered By: Dr. Cruz on 08-29-2022 Monocytes/100 WBC (Bld) 14.0 % 0-10 [facility] Blood platelet mean volumeOr dered By: Dr. Cruz on 08-29-2022 Platelet mean volume (Bld) [Entitic vol] 10.1 fL 6.2-12.0 [facility] Determination of erythrocyte mean corpuscular volume (MCV)Ordered By: Dr. Cruz on 08-29-2022 MCV (RBC) [Entitic vol] 92.1 fL 81-99 [facility] Hematocrit Auto (Bld) [Volum e fraction]Ordered By: Dr. Cruz on 08-29-2022 Hematocrit (Bld) [Volume fraction] 41.0 % 37-47 [facility] Laboratory - Chemistry and C hemistry - challengeOrdered By: Dr. Cruz on 08-29-2022 ALP [Catalytic activity/Vol] 107 U/L 45-117 [facility] ALT [Catalytic activity/Vol] 20 U/L 13-56 [facility] CO2 [Moles/Vol] 22.0 mmol/L 21.0-32.0 [facility] Globulin (S) [Mass/Vol] 4.2 g/dL 2.2-4.2 [facility] Urea nitrogen/Creatinine [Mass ratio] 18.5 mg/mg 10-20 [facility] Laboratory - Hematology and Cell countsOrdered By: Dr. Cruz on 08-29-2022 Erythrocyte distribution width (RBC) [Entitic vol] 50.9 fL 35.1-43.9 [facility] Erythrocyte distribution width (RBC) [Ratio] 15.1 % 11.6-14.6 [facility] Immature granulocytes/100 WBC (Bld) 0.300 % 0.0-0.9 [facility] Comment on above: IG% - Immature Granu locytes (promyelocytes, myelocytes and metamyelocytes) > 1% indicates that a LEFT SHIFT is Present. MCH (RBC) [Entitic mass] 29.7 pg 27.0-32.0 [facility] Nucleated RBC/100 WBC (Bld) [Ratio] 0 % 0-5 [facility] MCHC Auto (RBC) [Mass/Vol]Or dered By: Dr. Cruz on 08-29-2022 MCHC (RBC) [Mass/Vol] 32.2 g/dL 32-36 [facility] No Panel InformationOrdered By: Dr. Cruz on 08-29-2022 Estimated GFR (MDRD) Amer 65 mL/min >60 [facility] Comment on above: GFR Calc Estimated GFR (MDRD) Non-Af Amer 54 mL/min >60 [facility] Comment on above: Non- GFR Calc Platelets bldOrdered By: Dr. Cruz on 08-29-2022 Platelets (Bld) [#/Vol] 225 10*3/uL 150-450 [facility] Serum or plasma albumin griffin urement (mass/volume)Ordered By: Dr. Cruz on 08-29-2022 Albumin [Mass/Vol] 3.1 g/dL 3.2-5.0 [facility] Serum or plasma albumin/glob ulin mass ratioOrdered By: Dr. Cruz on 08-29-2022 Albumin/Globulin [Mass ratio] 0.7 {ratio} 0.9-2.4 [facility] Serum or plasma calcium griffin urement (mass/volume)Ordered By: Dr. Cruz on 08-29-2022 Calcium [Mass/Vol] 9.7 mg/dL 8.5-10.1 [facility] Serum or plasma creatinine m easurement (mass/volume)Ordered By: Dr. Cruz on 08-29-2022 Creatinine [Mass/Vol] 1.08 mg/dL 0.55-1.02 [facility] Comment on above: The validity of the calculated GFR & GFRAA in patients over 70 years has not been determined. Clinical correlation is essential. Serum or plasma urea nitroge n measurement (mass/volume)Ordered By: Dr. Cruz on 08-29-2022 Urea nitrogen [Mass/Vol] 20 mg/dL 7-18 [facility] Thin prep Papanicolaou smear with manual screeningOrdered By: Dr. Cruz on 08-29-2022 Thin prep Papanicolaou smear with manual screening 22 U/L 15-37 [facility] Thin prep Papanicolaou smear with manual screening 8 5-15 [facility] Basophil percentageOrdered B y: Richard Garcia on 08-07-2022 Bilirubin [Mass/Vol] 0.80 mg/dL 0.20-1.00 [facility] Comment on above: For patients on eltr ombopag therapy, use of Dimension Opp TBIL is not recommended. Chloride [Moles/Vol] 107 mmol/L 98-107 [facility] Cholesterol [Mass/Vol] 157 mg/dL <200 [facility] Comment on above: <200 mg/dL Desirable 200-240 mg/dL Borderline >240 mg/dL High Risk Glucose [Mass/Vol] 115 mg/dL 74-106 [facility] Comment on above: Fasting Glucose resu lt from 100 to 125 mg/dL suggests IMPAIRED HOMEOSTASIS per A.D.A. criteria. Potassium [Moles/Vol] 4.0 mmol/L 3.5-5.1 [facility] Comment on above: Moderate Hemolysis, Result may be falsely increased. Protein [Mass/Vol] 7.5 g/dL 6.4-8.2 [facility] Sodium [Moles/Vol] 141 mmol/L 136-145 [facility] Triglyceride [Mass/Vol] 263 mg/dL <199 [facility] Comment on above: The drugs N-Acetylcy steine and Metamizole may falsely depress this assay.Serum Triglycerides Reference Interval Normal <150 mg/dL Borderline high 150 - 199 mg/dL High 200 - 499 mg/dL Very High > or = 500 mg/dL Direct bilirubinOrdered By: Richard Garcia on 08-07-2022 Bilirubin.direct [Mass/Vol] 0.16 mg/dL 0.00-0.30 [facility] Laboratory - Chemistry and C hemistry - challengeOrdered By: Richard Garcia on 08-07-2022 ALP [Catalytic activity/Vol] 133 U/L 45-117 [facility] ALT [Catalytic activity/Vol] 34 U/L 13-56 [facility] CO2 [Moles/Vol] 26.0 mmol/L 21.0-32.0 [facility] Globulin (S) [Mass/Vol] 4.2 g/dL 2.2-4.2 [facility] Urea nitrogen/Creatinine [Mass ratio] 18.6 mg/mg 10-20 [facility] No Panel InformationOrdered By: Richard Garcia on 08-07-2022 Estimated GFR (MDRD) Amer 59 mL/min >60 [facility] Comment on above: GFR Calc Estimated GFR (MDRD) Non-Af Amer 49 mL/min >60 [facility] Comment on above: Non- GFR Calc Serum or plasma albumin griffin urement (mass/volume)Ordered By: Richard Garcia on 08-07-2022 Albumin [Mass/Vol] 3.3 g/dL 3.2-5.0 [facility] Serum or plasma calcium griffin urement (mass/volume)Ordered By: Richard Garcia on 08-07-2022 Calcium [Mass/Vol] 9.9 mg/dL 8.5-10.1 [facility] Serum or plasma cholesterol in HDL measurement (mass/volume)Ordered By: Richard Garcia on 08-07-2022 Cholesterol in HDL [Mass/Vol] 44 mg/dL >40 [facility] Comment on above: The drugs N-Acetylcy steine and Metamizole may falsely depress this assay. Reference Range HDL <40 mg/dL Low HDL Cholesterol HDL >or= 60 mg/dL High HDL Cholesterol Serum or plasma cholesterol in VLDL measurement (mass/volume)Ordered By: Richard Garcia on 08-07-2022 Cholesterol in VLDL [Mass/Vol] 53 mg/dL 5-40 [facility] Serum or plasma creatinine m easurement (mass/volume)Ordered By: Richard Garcia on 08-07-2022 Creatinine [Mass/Vol] 1.18 mg/dL 0.55-1.02 [facility] Comment on above: The validity of the calculated GFR & GFRAA in patients over 70 years has not been determined. Clinical correlation is essential. Serum or plasma low density lipoprotein (LDL) cholesterol measurement (mass/volume)Ordered By: Richard Garcia on 08-07-2022 Cholesterol in LDL [Mass/Vol] 60 mg/dL 0-130 [facility] Serum or plasma urea nitroge n measurement (mass/volume)Ordered By: Richard Garcia on 08-07-2022 Urea nitrogen [Mass/Vol] 22 mg/dL 7-18 [facility] Thin prep Papanicolaou smear with manual screeningOrdered By: Richard Garcia on 08-07-2022 Thin prep Papanicolaou smear with manual screening 42 U/L 15-37 [facility] Comment on above: Moderate Hemolysis, Result may be falsely increased. Thin prep Papanicolaou smear with manual screening 8 5-15 [facility] Absolute lymphocyte countOrd ered By: Dr. Cruz on 06-05-2022 Lymphocytes Auto (Unsp spec) [#/Vol] 2.33 10*3/uL 0.83-4.51 [facility] Basophil percentageOrdered B y: Dr. Cruz on 06-05-2022 Basophils/100 WBC (Bld) 1.0 % 0-1 [facility] Bilirubin [Mass/Vol] 0.60 mg/dL 0.20-1.00 [facility] Comment on above: For patients on eltr ombopag therapy, use of Dimension Opp TBIL is not recommended. Chloride [Moles/Vol] 107 mmol/L 98-107 [facility] Eosinophils/100 WBC (Bld) 1.7 % 0-5 [facility] Glucose [Mass/Vol] 117 mg/dL 74-106 [facility] Comment on above: Fasting Glucose resu lt from 100 to 125 mg/dL suggests IMPAIRED HOMEOSTASIS per A.D.A. criteria. Neutrophils (Bld) [#/Vol] 2.7 10*3/uL 2.0-7.7 [facility] Neutrophils/100 WBC (Bld) 44.6 % 47-70 [facility] Potassium [Moles/Vol] 3.7 mmol/L 3.5-5.1 [facility] Protein [Mass/Vol] 7.3 g/dL 6.4-8.2 [facility] Sodium [Moles/Vol] 143 mmol/L 136-145 [facility] WBC (Bld) [#/Vol] 6.0 10*3/uL 4.4-11.0 [facility] Blood erythrocytes count (nu mber/volume)Ordered By: Dr. Cruz on 06-05-2022 RBC (Bld) [#/Vol] 4.59 10*6/uL 4.2-5.4 [facility] Blood hemoglobin measurement (mass/volume)Ordered By: Dr. Cruz on 06-05-2022 Hemoglobin (Bld) [Mass/Vol] 13.5 g/dL 12.0-15.0 [facility] Blood lymphocytes/100 leukoc ytesOrdered By: Dr. Cruz on 06-05-2022 Lymphocytes/100 WBC (Bld) 38.6 % 19-41 [facility] Blood monocytes/100 leukocyt esOrdered By: Dr. Cruz on 06-05-2022 Monocytes/100 WBC (Bld) 13.9 % 0-10 [facility] Blood platelet mean volumeOr dered By: Dr. Cruz on 06-05-2022 Platelet mean volume (Bld) [Entitic vol] 10.3 fL 6.2-12.0 [facility] Determination of erythrocyte mean corpuscular volume (MCV)Ordered By: Dr. Cruz on 06-05-2022 MCV (RBC) [Entitic vol] 94.1 fL 81-99 [facility] Hematocrit Auto (Bld) [Volum e fraction]Ordered By: Dr. Cruz on 06-05-2022 Hematocrit (Bld) [Volume fraction] 43.2 % 37-47 [facility] Laboratory - Chemistry and C hemistry - challengeOrdered By: Dr. Cruz on 06-05-2022 ALP [Catalytic activity/Vol] 87 U/L 45-117 [facility] ALT [Catalytic activity/Vol] 25 U/L 13-56 [facility] CO2 [Moles/Vol] 28.0 mmol/L 21.0-32.0 [facility] Globulin (S) [Mass/Vol] 3.9 g/dL 2.2-4.2 [facility] Urea nitrogen/Creatinine [Mass ratio] 16.7 mg/mg 10-20 [facility] Laboratory - Hematology and Cell countsOrdered By: Dr. Cruz on 06-05-2022 Erythrocyte distribution width (RBC) [Entitic vol] 47.8 fL 35.1-43.9 [facility] Erythrocyte distribution width (RBC) [Ratio] 14.0 % 11.6-14.6 [facility] Immature granulocytes/100 WBC (Bld) 0.200 % 0.0-0.9 [facility] Comment on above: IG% - Immature Granu locytes (promyelocytes, myelocytes and metamyelocytes) > 1% indicates that a LEFT SHIFT is Present. MCH (RBC) [Entitic mass] 29.4 pg 27.0-32.0 [facility] Nucleated RBC/100 WBC (Bld) [Ratio] 0 % 0-5 [facility] MCHC Auto (RBC) [Mass/Vol]Or dered By: Dr. Cruz on 06-05-2022 MCHC (RBC) [Mass/Vol] 31.3 g/dL 32-36 [facility] No Panel InformationOrdered By: Dr. Cruz on 06-05-2022 Estimated GFR (MDRD) Amer 58 mL/min >60 [facility] Comment on above: GFR Calc Estimated GFR (MDRD) Non-Af Amer 48 mL/min >60 [facility] Comment on above: Non- GFR Calc Platelets bldOrdered By: Dr. Cruz on 06-05-2022 Platelets (Bld) [#/Vol] 231 10*3/uL 150-450 [facility] Serum or plasma albumin griffin urement (mass/volume)Ordered By: Dr. Cruz on 06-05-2022 Albumin [Mass/Vol] 3.4 g/dL 3.2-5.0 [facility] Serum or plasma albumin/glob ulin mass ratioOrdered By: Dr. Cruz on 06-05-2022 Albumin/Globulin [Mass ratio] 0.9 {ratio} 0.9-2.4 [facility] Serum or plasma calcium griffin urement (mass/volume)Ordered By: Dr. Cruz on 06-05-2022 Calcium [Mass/Vol] 9.6 mg/dL 8.5-10.1 [facility] Serum or plasma creatinine m easurement (mass/volume)Ordered By: Dr. Cruz on 06-05-2022 Creatinine [Mass/Vol] 1.20 mg/dL 0.55-1.02 [facility] Comment on above: The validity of the calculated GFR & GFRAA in patients over 70 years has not been determined. Clinical correlation is essential. Serum or plasma urea nitroge n measurement (mass/volume)Ordered By: Dr. Cruz on 06-05-2022 Urea nitrogen [Mass/Vol] 20 mg/dL 7-18 [facility] Thin prep Papanicolaou smear with manual screeningOrdered By: Dr. Cruz on 06-05-2022 Thin prep Papanicolaou smear with manual screening 24 U/L 15-37 [facility] Thin prep Papanicolaou smear with manual screening 8 5-15 [facility] Basophil percentageOrdered B y: Dr. Cruz on 06-03-2022 WBC (Bld) [#/Vol] 5.8 10*3/uL 4.4-11.0 [facility] Blood erythrocytes count (nu mber/volume)Ordered By: Dr. Cruz on 06-03-2022 RBC (Bld) [#/Vol] 4.66 10*6/uL 4.2-5.4 [facility] Blood hemoglobin measurement (mass/volume)Ordered By: Dr. Cruz on 06-03-2022 Hemoglobin (Bld) [Mass/Vol] 13.7 g/dL 12.0-15.0 [facility] Blood platelet mean volumeOr dered By: Dr. Cruz on 06-03-2022 Platelet mean volume (Bld) [Entitic vol] 10.0 fL 6.2-12.0 [facility] Determination of erythrocyte mean corpuscular volume (MCV)Ordered By: Dr. Cruz on 06-03-2022 MCV (RBC) [Entitic vol] 93.8 fL 81-99 [facility] Hematocrit Auto (Bld) [Volum e fraction]Ordered By: Dr. Cruz on 06-03-2022 Hematocrit (Bld) [Volume fraction] 43.7 % 37-47 [facility] Laboratory - Hematology and Cell countsOrdered By: Dr. Cruz on 06-03-2022 Erythrocyte distribution width (RBC) [Entitic vol] 48.6 fL 35.1-43.9 [facility] Erythrocyte distribution width (RBC) [Ratio] 14.2 % 11.6-14.6 [facility] MCH (RBC) [Entitic mass] 29.4 pg 27.0-32.0 [facility] MCHC Auto (RBC) [Mass/Vol]Or dered By: Dr. Cruz on 06-03-2022 MCHC (RBC) [Mass/Vol] 31.4 g/dL 32-36 [facility] Platelets bldOrdered By: Dr. Cruz on 06-03-2022 Platelets (Bld) [#/Vol] 218 10*3/uL 150-450 [facility] Basophil percentageOrdered B y: Dr. Cruz on 03-15-2022 Bilirubin [Mass/Vol] 0.50 mg/dL 0.20-1.00 [facility] Comment on above: For patients on eltr ombopag therapy, use of Dimension Opp TBIL is not recommended. Chloride [Moles/Vol] 107 mmol/L 98-107 [facility] Glucose [Mass/Vol] 95 mg/dL 74-106 [facility] Potassium [Moles/Vol] 4.1 mmol/L 3.5-5.1 [facility] Protein [Mass/Vol] 6.9 g/dL 6.4-8.2 [facility] Sodium [Moles/Vol] 141 mmol/L 136-145 [facility] Laboratory - Chemistry and C hemistry - challengeOrdered By: Dr. Cruz on 03-15-2022 ALP [Catalytic activity/Vol] 121 U/L 45-117 [facility] ALT [Catalytic activity/Vol] 25 U/L 13-56 [facility] CO2 [Moles/Vol] 27.0 mmol/L 21.0-32.0 [facility] Globulin (S) [Mass/Vol] 3.4 g/dL 2.2-4.2 [facility] Urea nitrogen/Creatinine [Mass ratio] 23.7 mg/mg 10-20 [facility] No Panel InformationOrdered By: Dr. Cruz on 03-15-2022 Estimated GFR (MDRD) Amer 74 mL/min >60 [facility] Comment on above: GFR Calc Estimated GFR (MDRD) Non-Af Amer 61 mL/min >60 [facility] Comment on above: Non- GFR Calc Serum or plasma albumin griffin urement (mass/volume)Ordered By: Dr. Cruz on 03-15-2022 Albumin [Mass/Vol] 3.5 g/dL 3.2-5.0 [facility] Serum or plasma albumin/glob ulin mass ratioOrdered By: Dr. Cruz on 03-15-2022 Albumin/Globulin [Mass ratio] 1.0 {ratio} 0.9-2.4 [facility] Serum or plasma calcium griffin urement (mass/volume)Ordered By: Dr. Cruz on 03-15-2022 Calcium [Mass/Vol] 9.8 mg/dL 8.5-10.1 [facility] Serum or plasma creatinine m easurement (mass/volume)Ordered By: Dr. Cruz on 03-15-2022 Creatinine [Mass/Vol] 0.97 mg/dL 0.55-1.02 [facility] Comment on above: The validity of the calculated GFR & GFRAA in patients over 70 years has not been determined. Clinical correlation is essential. Serum or plasma urea nitroge n measurement (mass/volume)Ordered By: Dr. Cruz on 03-15-2022 Urea nitrogen [Mass/Vol] 23 mg/dL 7-18 [facility] Thin prep Papanicolaou smear with manual screeningOrdered By: Dr. Cruz on 03-15-2022 Thin prep Papanicolaou smear with manual screening 24 U/L 15-37 [facility] Thin prep Papanicolaou smear with manual screening 7 5-15 [facility] Absolute lymphocyte countOrd ered By: Dr. Cruz on 03-12-2022 Lymphocytes Auto (Unsp spec) [#/Vol] 2.66 10*3/uL 0.83-4.51 [facility] Basophil percentageOrdered B y: Dr. Cruz on 03-12-2022 Basophils/100 WBC (Bld) 0.9 % 0-1 [facility] Bilirubin [Mass/Vol] 0.50 mg/dL 0.20-1.00 [facility] Comment on above: For patients on eltr ombopag therapy, use of Dimension Opp TBIL is not recommended. Chloride [Moles/Vol] 109 mmol/L 98-107 [facility] Eosinophils/100 WBC (Bld) 1.8 % 0-5 [facility] Glucose [Mass/Vol] 106 mg/dL 74-106 [facility] Comment on above: Fasting Glucose resu lt from 100 to 125 mg/dL suggests IMPAIRED HOMEOSTASIS per A.D.A. criteria. Neutrophils (Bld) [#/Vol] 3.0 10*3/uL 2.0-7.7 [facility] Neutrophils/100 WBC (Bld) 45.1 % 47-70 [facility] Potassium [Moles/Vol] 4.2 mmol/L 3.5-5.1 [facility] Protein [Mass/Vol] 6.7 g/dL 6.4-8.2 [facility] Sodium [Moles/Vol] 142 mmol/L 136-145 [facility] WBC (Bld) [#/Vol] 6.6 10*3/uL 4.4-11.0 [facility] Blood erythrocytes count (nu mber/volume)Ordered By: Dr. Cruz on 03-12-2022 RBC (Bld) [#/Vol] 4.35 10*6/uL 4.2-5.4 [facility] Blood hemoglobin measurement (mass/volume)Ordered By: Dr. Cruz on 03-12-2022 Hemoglobin (Bld) [Mass/Vol] 13.6 g/dL 12.0-15.0 [facility] Blood lymphocytes/100 leukoc ytesOrdered By: Dr. Cruz on 03-12-2022 Lymphocytes/100 WBC (Bld) 40.1 % 19-41 [facility] Blood monocytes/100 leukocyt esOrdered By: Dr. Cruz on 03-12-2022 Monocytes/100 WBC (Bld) 11.9 % 0-10 [facility] Blood platelet mean volumeOr dered By: Dr. Cruz on 03-12-2022 Platelet mean volume (Bld) [Entitic vol] 9.2 fL 6.2-12.0 [facility] Determination of erythrocyte mean corpuscular volume (MCV)Ordered By: Dr. Cruz on 03-12-2022 MCV (RBC) [Entitic vol] 93.8 fL 81-99 [facility] Hematocrit Auto (Bld) [Volum e fraction]Ordered By: Dr. Cruz on 03-12-2022 Hematocrit (Bld) [Volume fraction] 40.8 % 37-47 [facility] Laboratory - Chemistry and C hemistry - challengeOrdered By: Dr. Cruz on 03-12-2022 ALP [Catalytic activity/Vol] 102 U/L 45-117 [facility] ALT [Catalytic activity/Vol] 23 U/L 13-56 [facility] CO2 [Moles/Vol] 29.0 mmol/L 21.0-32.0 [facility] Globulin (S) [Mass/Vol] 3.4 g/dL 2.2-4.2 [facility] Urea nitrogen/Creatinine [Mass ratio] 20.4 mg/mg 10-20 [facility] Laboratory - Hematology and Cell countsOrdered By: Dr. Cruz on 03-12-2022 Erythrocyte distribution width (RBC) [Entitic vol] 48.7 fL 35.1-43.9 [facility] Erythrocyte distribution width (RBC) [Ratio] 14.1 % 11.6-14.6 [facility] Immature granulocytes/100 WBC (Bld) 0.200 % 0.0-0.9 [facility] Comment on above: IG% - Immature Granu locytes (promyelocytes, myelocytes and metamyelocytes) > 1% indicates that a LEFT SHIFT is Present. MCH (RBC) [Entitic mass] 31.3 pg 27.0-32.0 [facility] Nucleated RBC/100 WBC (Bld) [Ratio] 0 % 0-5 [facility] MCHC Auto (RBC) [Mass/Vol]Or dered By: Dr. Cruz on 03-12-2022 MCHC (RBC) [Mass/Vol] 33.3 g/dL 32-36 [facility] No Panel InformationOrdered By: Dr. Cruz on 03-12-2022 Estimated GFR (MDRD) Amer 69 mL/min >60 [facility] Comment on above: GFR Calc Estimated GFR (MDRD) Non-Af Amer 57 mL/min >60 [facility] Comment on above: Non- GFR Calc Platelets bldOrdered By: Dr. Cruz on 03-12-2022 Platelets (Bld) [#/Vol] 229 10*3/uL 150-450 [facility] Serum or plasma albumin griffin urement (mass/volume)Ordered By: Dr. Cruz on 03-12-2022 Albumin [Mass/Vol] 3.3 g/dL 3.2-5.0 [facility] Serum or plasma albumin/glob ulin mass ratioOrdered By: Dr. Cruz on 03-12-2022 Albumin/Globulin [Mass ratio] 1.0 {ratio} 0.9-2.4 [facility] Serum or plasma calcium griffin urement (mass/volume)Ordered By: Dr. Cruz on 03-12-2022 Calcium [Mass/Vol] 9.9 mg/dL 8.5-10.1 [facility] Serum or plasma creatinine m easurement (mass/volume)Ordered By: Dr. Cruz on 03-12-2022 Creatinine [Mass/Vol] 1.03 mg/dL 0.55-1.02 [facility] Comment on above: The validity of the calculated GFR & GFRAA in patients over 70 years has not been determined. Clinical correlation is essential. Serum or plasma urea nitroge n measurement (mass/volume)Ordered By: Dr. Cruz on 03-12-2022 Urea nitrogen [Mass/Vol] 21 mg/dL 7-18 [facility] Thin prep Papanicolaou smear with manual screeningOrdered By: Dr. Cruz on 03-12-2022 Thin prep Papanicolaou smear with manual screening 18 U/L 15-37 [facility] Thin prep Papanicolaou smear with manual screening 4 5-15 [facility] Absolute lymphocyte counton 2022 Lymphocytes Auto (Unsp spec) [#/Vol] 2.91 10*3/uL 0.83-4.51 [facility] Work Phone: Basophil percentageon 2021 Basophils/100 WBC (Bld) 0.9 % 0-1 [facility] Work Phone: Eosinophils/100 WBC (Bld) 1.1 % 0-5 [facility] Work Phone: Neutrophils (Bld) [#/Vol] 3.3 10*3/uL 2.0-7.7 [facility] Work Phone: Neutrophils/100 WBC (Bld) 47.0 % 47-70 [facility] Work Phone: WBC (Bld) [#/Vol] 7.0 10*3/uL 4.4-11.0 [facility] Work Phone: Bilirubin [Mass/Vol] 0.50 mg/dL 0.20-1.00 [facility] Work Phone: Comment on above: For patients on eltr ombopag therapy, use of Dimension Opp TBIL is not recommended. Chloride [Moles/Vol] 108 mmol/L 98-107 [facility] Work Phone: Cholesterol [Mass/Vol] 189 mg/dL <200 [facility] Work Phone: Comment on above: <200 mg/dL Desirable 200-240 mg/dL Borderline >240 mg/dL High Risk Glucose [Mass/Vol] 109 mg/dL 74-106 [facility] Work Phone: Comment on above: Fasting Glucose resu lt from 100 to 125 mg/dL suggests IMPAIRED HOMEOSTASIS per A.D.A. criteria. Potassium [Moles/Vol] 4.3 mmol/L 3.5-5.1 [facility] Work Phone: Protein [Mass/Vol] 7.5 g/dL 6.4-8.2 [facility] Work Phone: Sodium [Moles/Vol] 144 mmol/L 136-145 [facility] Work Phone: Triglyceride [Mass/Vol] 171 mg/dL <199 [facility] Work Phone: Comment on above: The drugs N-Acetylcy steine and Metamizole may falsely depress this assay.Serum Triglycerides Reference Interval Normal <150 mg/dL Borderline high 150 - 199 mg/dL High 200 - 499 mg/dL Very High > or = 500 mg/dL Blood erythrocytes count (nu mber/volume)on 2022 RBC (Bld) [#/Vol] 4.73 10*6/uL 4.2-5.4 [facility] Work Phone: Blood hemoglobin measurement (mass/volume)on 2022 Hemoglobin (Bld) [Mass/Vol] 14.2 g/dL 12.0-15.0 [facility] Work Phone: Blood lymphocytes/100 leukoc yteson 2022 Lymphocytes/100 WBC (Bld) 41.8 % 19-41 [facility] Work Phone: Blood monocytes/100 leukocyt eson 2022 Monocytes/100 WBC (Bld) 8.8 % 0-10 [facility] Work Phone: Blood platelet mean volumeon 2022 Platelet mean volume (Bld) [Entitic vol] 9.3 fL 6.2-12.0 [facility] Work Phone: Determination of erythrocyte mean corpuscular volume (MCV)on 2022 MCV (RBC) [Entitic vol] 92.4 fL 81-99 [facility] Work Phone: Direct bilirubinon 2 Bilirubin.direct [Mass/Vol] 0.15 mg/dL 0.00-0.30 [facility] Work Phone: Hematocrit Auto (Bld) [Volum e fraction]on 2022 Hematocrit (Bld) [Volume fraction] 43.7 % 37-47 [facility] Work Phone: Laboratory - Chemistry and C hemistry - challengeon 2022 ALP [Catalytic activity/Vol] 102 U/L 45-117 [facility] Work Phone: ALT [Catalytic activity/Vol] 23 U/L 13-56 [facility] Work Phone: CO2 [Moles/Vol] 28.0 mmol/L 21.0-32.0 [facility] Work Phone: Globulin (S) [Mass/Vol] 3.9 g/dL 2.2-4.2 [facility] Work Phone: Urea nitrogen/Creatinine [Mass ratio] 20.5 mg/mg 10-20 [facility] Work Phone: Laboratory - Hematology and Cell countson 2022 Erythrocyte distribution width (RBC) [Entitic vol] 47.0 fL 35.1-43.9 [facility] Work Phone: Erythrocyte distribution width (RBC) [Ratio] 13.8 % 11.6-14.6 [facility] Work Phone: Immature granulocytes/100 WBC (Bld) 0.400 % 0.0-0.9 [facility] Work Phone: Comment on above: IG% - Immature Granu locytes (promyelocytes, myelocytes and metamyelocytes) > 1% indicates that a LEFT SHIFT is Present. MCH (RBC) [Entitic mass] 30.0 pg 27.0-32.0 [facility] Work Phone: Nucleated RBC/100 WBC (Bld) [Ratio] 0 % 0-5 [facility] Work Phone: MCHC Auto (RBC) [Mass/Vol]on 2022 MCHC (RBC) [Mass/Vol] 32.5 g/dL 32-36 [facility] Work Phone: No Panel Informationon 01-28 Estimated GFR (MDRD) Amer 62 mL/min >60 [facility] Work Phone: Comment on above: GFR Calc Estimated GFR (MDRD) Non-Af Amer 52 mL/min >60 [facility] Work Phone: Comment on above: Non- GFR Calc Platelets bldon 2022 Platelets (Bld) [#/Vol] 223 10*3/uL 150-450 [facility] Work Phone: Serum or plasma albumin griffin urement (mass/volume)on 2022 Albumin [Mass/Vol] 3.6 g/dL 3.2-5.0 [facility] Work Phone: Serum or plasma albumin/glob ulin mass ratioon 2022 Albumin/Globulin [Mass ratio] 0.9 {ratio} 0.9-2.4 [facility] Work Phone: Serum or plasma calcium griffin urement (mass/volume)on 2022 Calcium [Mass/Vol] 10.2 mg/dL 8.5-10.1 [facility] Work Phone: Serum or plasma cholesterol in HDL measurement (mass/volume)on 2022 Cholesterol in HDL [Mass/Vol] 50 mg/dL >40 [facility] Work Phone: Comment on above: The drugs N-Acetylcy steine and Metamizole may falsely depress this assay. Reference Range HDL <40 mg/dL Low HDL Cholesterol HDL >or= 60 mg/dL High HDL Cholesterol Serum or plasma cholesterol in VLDL measurement (mass/volume)on 2022 Cholesterol in VLDL [Mass/Vol] 34 mg/dL 5-40 [facility] Work Phone: Serum or plasma creatinine m easurement (mass/volume)on 2022 Creatinine [Mass/Vol] 1.12 mg/dL 0.55-1.02 [facility] Work Phone: Comment on above: The validity of the calculated GFR & GFRAA in patients over 70 years has not been determined. Clinical correlation is essential. Serum or plasma low density lipoprotein (LDL) cholesterol measurement (mass/volume)on 2022 Cholesterol in LDL [Mass/Vol] 105 mg/dL 0-130 [facility] Work Phone: Serum or plasma urea nitroge n measurement (mass/volume)on 2022 Urea nitrogen [Mass/Vol] 23 mg/dL 7-18 [facility] Work Phone: Thin prep Papanicolaou smear with manual screeningon 2022 Thin prep Papanicolaou smear with manual screening 21 U/L 15-37 [facility] Work Phone: Thin prep Papanicolaou smear with manual screening 8 5-15 [facility] Work Phone: Absolute lymphocyte counton 11-30-2021 Lymphocytes Auto (Unsp spec) [#/Vol] 2.67 10*3/uL 0.83-4.51 [facility] Work Phone: Basophil percentageon 2021 Basophils/100 WBC (Bld) 0.9 % 0-1 [facility] Work Phone: Bilirubin [Mass/Vol] 0.50 mg/dL 0.20-1.00 [facility] Work Phone: Comment on above: For patients on eltr ombopag therapy, use of Dimension Opp TBIL is not recommended. Chloride [Moles/Vol] 109 mmol/L 98-107 [facility] Work Phone: [phone] Eosinophils/100 WBC (Bld) 1.4 % 0-5 [facility] Work Phone: Glucose [Mass/Vol] 107 mg/dL 74-106 [facility] Work Phone: Comment on above: Fasting Glucose resu lt from 100 to 125 mg/dL suggests IMPAIRED HOMEOSTASIS per A.D.A. criteria. Neutrophils (Bld) [#/Vol] 2.9 10*3/uL 2.0-7.7 [facility] Work Phone: Neutrophils/100 WBC (Bld) 45.4 % 47-70 [facility] Work Phone: [phone] Potassium [Moles/Vol] 4.1 mmol/L 3.5-5.1 [facility] Work Phone: [phone] Protein [Mass/Vol] 7.3 g/dL 6.4-8.2 [facility] Work Phone: Sodium [Moles/Vol] 142 mmol/L 136-145 [facility] Work Phone: WBC (Bld) [#/Vol] 6.4 10*3/uL 4.4-11.0 [facility] Work Phone: Blood erythrocytes count (nu mber/volume)on 11-30-2021 RBC (Bld) [#/Vol] 4.58 10*6/uL 4.2-5.4 [facility]: Blood hemoglobin measurement (mass/volume)on 11-30-2021 Hemoglobin (Bld) [Mass/Vol] 13.9 g/dL 12.0-15.0 [facility] Work Phone: Blood lymphocytes/100 leukoc yteson 11-30-2021 Lymphocytes/100 WBC (Bld) 41.8 % 19-41 [facility] Work Phone: Blood monocytes/100 leukocyt eson 11-30-2021 Monocytes/100 WBC (Bld) 10.2 % 0-10 [facility] Work Phone: Blood platelet mean volumeon 11-30-2021 Platelet mean volume (Bld) [Entitic vol] 9.3 fL 6.2-12.0 [facility] Work Phone: Determination of erythrocyte mean corpuscular volume (MCV)on 11-30-2021 MCV (RBC) [Entitic vol] 94.3 fL 81-99 [facility] Work Phone: Hematocrit Auto (Bld) [Volum e fraction]on 11-30-2021 Hematocrit (Bld) [Volume fraction] 43.2 % 37-47 [facility] Work Phone: Laboratory - Chemistry and C hemistry - challengeon 11-30-2021 ALP [Catalytic activity/Vol] 94 U/L 45-117 [facility] Work Phone: ALT [Catalytic activity/Vol] 23 U/L 13-56 [facility] Work Phone: CO2 [Moles/Vol] 27.0 mmol/L 21.0-32.0 [facility] Work Phone: Globulin (S) [Mass/Vol] 3.9 g/dL 2.2-4.2 [facility] Work Phone: Urea nitrogen/Creatinine [Mass ratio] 22.6 mg/mg 10-20 [facility] Work Phone: Laboratory - Hematology and Cell countson 11-30-2021 Erythrocyte distribution width (RBC) [Entitic vol] 46.5 fL 35.1-43.9 [facility] Work Phone: Erythrocyte distribution width (RBC) [Ratio] 13.4 % 11.6-14.6 [facility] Work Phone: Immature granulocytes/100 WBC (Bld) 0.300 % 0.0-0.9 [facility] Work Phone: Comment on above: IG% - Immature Granu locytes (promyelocytes, myelocytes and metamyelocytes) > 1% indicates that a LEFT SHIFT is Present. MCH (RBC) [Entitic mass] 30.3 pg 27.0-32.0 [facility] Work Phone: Nucleated RBC/100 WBC (Bld) [Ratio] 0 % 0-5 [facility] Work Phone: MCHC Auto (RBC) [Mass/Vol]on 11-30-2021 MCHC (RBC) [Mass/Vol] 32.2 g/dL 32-36 [facility] Work Phone: No Panel Informationon 11-30 Estimated GFR (MDRD) Amer 56 mL/min >60 [facility] Work Phone: Comment on above: GFR Calc Estimated GFR (MDRD) Non-Af Amer 46 mL/min >60 [facility] Work Phone: Comment on above: Non- GFR Calc Platelets bldon 11-30-2021 Platelets (Bld) [#/Vol] 214 10*3/uL 150-450 [facility] Work Phone: Serum or plasma albumin griffin urement (mass/volume)on 11-30-2021 Albumin [Mass/Vol] 3.4 g/dL 3.2-5.0 [facility] Work Phone: Serum or plasma albumin/glob ulin mass ratioon 11-30-2021 Albumin/Globulin [Mass ratio] 0.9 {ratio} 0.9-2.4 [facility] Work Phone: Serum or plasma calcium griffin urement (mass/volume)on 11-30-2021 Calcium [Mass/Vol] 10.1 mg/dL 8.5-10.1 [facility] Work Phone: Serum or plasma creatinine m easurement (mass/volume)on 11-30-2021 Creatinine [Mass/Vol] 1.24 mg/dL 0.55-1.02 [facility] Work Phone: Comment on above: The validity of the calculated GFR & GFRAA in patients over 70 years has not been determined. Clinical correlation is essential. Serum or plasma urea nitroge n measurement (mass/volume)on 11-30-2021 Urea nitrogen [Mass/Vol] 28 mg/dL 7-18 [facility] Work Phone: Thin prep Papanicolaou smear with manual screeningon 11-30-2021 Thin prep Papanicolaou smear with manual screening 19 U/L 15-37 [facility] Work Phone: Thin prep Papanicolaou smear with manual screening 6 5-15 [facility] Work Phone: Urine creatinine measurement (mass/volume)on 10-02-2021 Creatinine (U) [Mass/Vol] 300.00 mg/dL NO RANGE EST. [facility] Work Phone: Urine protein measurement (m ass/volume)on 10-02-2021 Protein (U) [Mass/Vol] 23.1 mg/dL 0.0-11.8 [facility] Work Phone: Urine protein/creatinine mas s ratioon 10-02-2021 Protein/Creatinine (U) [Mass ratio] 77 mg/g CRE 0-200 [facility] Work Phone: Absolute lymphocyte counton 10-01-2021 Lymphocytes Auto (Unsp spec) [#/Vol] 3.21 10*3/uL 0.83-4.51 [facility] Work Phone: Basophil percentageon 2021 Basophils/100 WBC (Bld) 0.8 % 0-1 [facility] Work Phone: Bilirubin [Mass/Vol] 0.50 mg/dL 0.20-1.00 [facility] Work Phone: Comment on above: For patients on eltr ombopag therapy, use of Dimension Opp TBIL is not recommended. Chloride [Moles/Vol] 108 mmol/L 98-107 [facility] Work Phone: [phone] Eosinophils/100 WBC (Bld) 0.8 % 0-5 [facility] Work Phone: Glucose [Mass/Vol] 102 mg/dL 74-106 [facility] Work Phone: Comment on above: Fasting Glucose resu lt from 100 to 125 mg/dL suggests IMPAIRED HOMEOSTASIS per A.D.A. criteria. Neutrophils (Bld) [#/Vol] 3.3 10*3/uL 2.0-7.7 [facility] Work Phone: Neutrophils/100 WBC (Bld) 45.8 % 47-70 [facility] Work Phone: Potassium [Moles/Vol] 3.9 mmol/L 3.5-5.1 [facility] Work Phone: Protein [Mass/Vol] 7.1 g/dL 6.4-8.2 [facility] Work Phone: Sodium [Moles/Vol] 141 mmol/L 136-145 [facility] Work Phone: WBC (Bld) [#/Vol] 7.3 10*3/uL 4.4-11.0 [facility] Work Phone: Blood erythrocytes count (nu mber/volume)on 10-01-2021 RBC (Bld) [#/Vol] 4.48 10*6/uL 4.2-5.4 [facility] Work Phone: Blood hemoglobin measurement (mass/volume)on 10-01-2021 Hemoglobin (Bld) [Mass/Vol] 13.3 g/dL 12.0-15.0 [facility] Work Phone: [phone] Blood lymphocytes/100 leukoc yteson 10-01-2021 Lymphocytes/100 WBC (Bld) 44.0 % 19-41 [facility] Work Phone: Blood monocytes/100 leukocyt eson 10-01-2021 Monocytes/100 WBC (Bld) 8.2 % 0-10 [facility] Work Phone: Blood platelet mean volumeon 10-01-2021 Platelet mean volume (Bld) [Entitic vol] 9.4 fL 6.2-12.0 [facility] Work Phone: Determination of erythrocyte mean corpuscular volume (MCV)on 10-01-2021 MCV (RBC) [Entitic vol] 92.2 fL 81-99 [facility] Work Phone: Hematocrit Auto (Bld) [Volum e fraction]on 10-01-2021 Hematocrit (Bld) [Volume fraction] 41.3 % 37-47 [facility] Work Phone: Laboratory - Chemistry and C hemistry - challengeon 10-01-2021 ALP [Catalytic activity/Vol] 82 U/L 45-117 [facility] Work Phone: ALT [Catalytic activity/Vol] 22 U/L 13-56 [facility] Work Phone: CO2 [Moles/Vol] 28.0 mmol/L 21.0-32.0 [facility] Work Phone: Globulin (S) [Mass/Vol] 3.8 g/dL 2.2-4.2 [facility] Work Phone: Urea nitrogen/Creatinine [Mass ratio] 18.6 mg/mg 10-20 [facility] Work Phone: Laboratory - Hematology and Cell countson 10-01-2021 Erythrocyte distribution width (RBC) [Entitic vol] 52.1 fL 35.1-43.9 [facility] Work Phone: Erythrocyte distribution width (RBC) [Ratio] 15.4 % 11.6-14.6 [facility] Work Phone: Immature granulocytes/100 WBC (Bld) 0.400 % 0.0-0.9 [facility] Work Phone: Comment on above: IG% - Immature Granu locytes (promyelocytes, myelocytes and metamyelocytes) > 1% indicates that a LEFT SHIFT is Present. MCH (RBC) [Entitic mass] 29.7 pg 27.0-32.0 [facility] Work Phone: Nucleated RBC/100 WBC (Bld) [Ratio] 0 % 0-5 [facility] Work Phone: MCHC Auto (RBC) [Mass/Vol]on 10-01-2021 MCHC (RBC) [Mass/Vol] 32.2 g/dL 32-36 [facility] Work Phone: No Panel Informationon 10-01 Estimated GFR (MDRD) Amer 59 mL/min >60 [facility] Work Phone: Comment on above: GFR Calc Estimated GFR (MDRD) Non-Af Amer 49 mL/min >60 [facility] Work Phone: Comment on above: Non- GFR Calc Platelets bldon 10-01-2021 Platelets (Bld) [#/Vol] 240 10*3/uL 150-450 [facility] Work Phone: Serum or plasma albumin griffin urement (mass/volume)on 10-01-2021 Albumin [Mass/Vol] 3.3 g/dL 3.2-5.0 [facility] Work Phone: Serum or plasma albumin/glob ulin mass ratioon 10-01-2021 Albumin/Globulin [Mass ratio] 0.9 {ratio} 0.9-2.4 [facility] Work Phone: Serum or plasma calcium griffin urement (mass/volume)on 10-01-2021 Calcium [Mass/Vol] 9.7 mg/dL 8.5-10.1 [facility] Work Phone: Serum or plasma creatinine m easurement (mass/volume)on 10-01-2021 Creatinine [Mass/Vol] 1.18 mg/dL 0.55-1.02 [facility] Work Phone: Comment on above: The validity of the calculated GFR & GFRAA in patients over 70 years has not been determined. Clinical correlation is essential. Serum or plasma urea nitroge n measurement (mass/volume)on 10-01-2021 Urea nitrogen [Mass/Vol] 22 mg/dL 10-01 [facility] Work Phone: Thin prep Papanicolaou smear with manual screeningon 10-01-2021 Thin prep Papanicolaou smear with manual screening 16 U/L 15-37 [facility] Work Phone: Thin prep Papanicolaou smear with manual screening 5 5-15 [facility] Work Phone: Basophil percentageon 2021 Bilirubin [Mass/Vol] 0.80 mg/dL 0.20-1.00 [facility] Work Phone: Comment on above: For patients on eltr ombopag therapy, use of Dimension Opp TBIL is not recommended. Chloride [Moles/Vol] 105 mmol/L 98-107 [facility] Work Phone: Glucose [Mass/Vol] 118 mg/dL 74-106 [facility] Work Phone: Comment on above: Fasting Glucose resu lt from 100 to 125 mg/dL suggests IMPAIRED HOMEOSTASIS per A.D.A. criteria. Potassium [Moles/Vol] 3.9 mmol/L 3.5-5.1 [facility] Work Phone: Protein [Mass/Vol] 8.0 g/dL 6.4-8.2 [facility] Work Phone: Sodium [Moles/Vol] 139 mmol/L 136-145 [facility] Work Phone: Bilirubin Test strip Ql (U)o n 07-11-2021 Bilirubin Ql (U) Negative Negative [facility] Work Phone: Ketones Test strip Ql (U)on 07-11-2021 Ketones Ql (U) Negative Negative [facility] Work Phone: Laboratory - Chemistry and C hemistry - challengeon 07-11-2021 ALP [Catalytic activity/Vol] 165 U/L 45-117 [facility] Work Phone: ALT [Catalytic activity/Vol] 63 U/L 13-56 [facility] Work Phone: CO2 [Moles/Vol] 26.0 mmol/L 21.0-32.0 [facility] Work Phone: Globulin (S) [Mass/Vol] 5.2 g/dL 2.2-4.2 [facility] Work Phone: Urea nitrogen/Creatinine [Mass ratio] 16.1 mg/mg 10-20 [facility] Work Phone: Nitrite Test strip Ql (U)on 07-11-2021 Nitrite Ql (U) Negative Negative [facility] Work Phone: No Panel Informationon 07-11 Estimated GFR (MDRD) Amer 63 mL/min >60 [facility] Work Phone: Comment on above: GFR Calc Estimated GFR (MDRD) Non-Af Amer 52 mL/min >60 [facility] Work Phone: Comment on above: Non- GFR Calc Miscellaneous Test Comment MAILED SPECIMEN [facility] Work Phone: Protein Test strip Ql (U)on 07-11-2021 Protein Ql (U) Negative Negative [facility] Work Phone: Serum or plasma albumin griffin urement (mass/volume)on 07-11-2021 Albumin [Mass/Vol] 2.8 g/dL 3.2-5.0 [facility] Work Phone: Serum or plasma albumin/glob ulin mass ratioon 07-11-2021 Albumin/Globulin [Mass ratio] 0.5 {ratio} 0.9-2.4 [facility] Work Phone: Serum or plasma calcium griffin urement (mass/volume)on 07-11-2021 Calcium [Mass/Vol] 9.7 mg/dL 8.5-10.1 [facility] Work Phone: Serum or plasma creatinine m easurement (mass/volume)on 07-11-2021 Creatinine [Mass/Vol] 1.12 mg/dL 0.55-1.02 [facility] Work Phone: Comment on above: The validity of the calculated GFR & GFRAA in patients over 70 years has not been determined. Clinical correlation is essential. Serum or plasma urea nitroge n measurement (mass/volume)on 07-11-2021 Urea nitrogen [Mass/Vol] 18 mg/dL 7-18 [facility] Work Phone: Thin prep Papanicolaou smear with manual screeningon 07-11-2021 Thin prep Papanicolaou smear with manual screening 37 U/L 15-37 [facility] Work Phone: Thin prep Papanicolaou smear with manual screening 8 5-15 [facility] Work Phone: Urine blood detectionon 06-16 RBC Ql (U) Negative Negative [facility] Work Phone: Urine clarityon 07-11-2021 Clarity (U) Clear Clear [facility] Work Phone: Urine color determinationon 07-11-2021 Color (U) Yellow Yellow [facility] Work Phone: Urine creatinine measurement (mass/volume)on 07-11-2021 Creatinine (U) [Mass/Vol] 191.00 mg/dL NO RANGE EST. [facility] Work Phone: Urine glucose detectionon Glucose Ql (U) Normal mg/dl Normal [facility] Work Phone: Urine leukocyte esterase det ection by dipstickon 07-11-2021 Leukocyte esterase Test strip Ql (U) 25 /ul Negative [facility] Work Phone: Urine pHon 07-11-2021 pH (U) 5.0 [pH] 5.0 - 8.0 [facility] Work Phone: Urine protein measurement (m ass/volume)on 07-11-2021 Protein (U) [Mass/Vol] 100.9 mg/dL 0.0-11.8 [facility] Work Phone: Urine protein/creatinine mas s ratioon 07-11-2021 Protein/Creatinine (U) [Mass ratio] 528 mg/g CRE 0-200 [facility] Work Phone: Urine specific gravity measu rementon 07-11-2021 Specific gravity (U) [Rel density] 1.020 1.002-1.030 [facility] Work Phone: Urobilinogen Auto test strip Ql (U)on 07-11-2021 Urobilinogen Ql (U) Normal mg/dl Normal [facility] Work Phone: Absolute lymphocyte counton 06-27-2021 Lymphocytes Auto (Unsp spec) [#/Vol] 2.99 10*3/uL 0.83-4.51 [facility] Work Phone: Basophil percentageon 2021 Basophils/100 WBC (Bld) 0.7 % 0-1 [facility] Work Phone: Bilirubin [Mass/Vol] 0.60 mg/dL 0.20-1.00 [facility] Work Phone: Comment on above: For patients on eltr ombopag therapy, use of Dimension Opp TBIL is not recommended. Chloride [Moles/Vol] 107 mmol/L 98-107 [facility] Work Phone: Eosinophils/100 WBC (Bld) 0.7 % 0-5 [facility] Work Phone: Glucose [Mass/Vol] 115 mg/dL 74-106 [facility] Work Phone: Comment on above: Fasting Glucose resu lt from 100 to 125 mg/dL suggests IMPAIRED HOMEOSTASIS per A.D.A. criteria. Neutrophils (Bld) [#/Vol] 4.6 10*3/uL 2.0-7.7 [facility] Work Phone: Neutrophils/100 WBC (Bld) 53.6 % 47-70 [facility] Work Phone: [phone] Potassium [Moles/Vol] 4.0 mmol/L 3.5-5.1 [facility] Work Phone: [phone] Protein [Mass/Vol] 7.8 g/dL 6.4-8.2 [facility] Work Phone: [phone] Sodium [Moles/Vol] 139 mmol/L 136-145 [facility] Work Phone: WBC (Bld) [#/Vol] 8.5 10*3/uL 4.4-11.0 [facility] Work Phone: [phone] Blood erythrocytes count (nu mber/volume)on 06-27-2021 RBC (Bld) [#/Vol] 4.76 10*6/uL 4.2-5.4 [facility] Work Phone: Blood hemoglobin measurement (mass/volume)on 06-27-2021 Hemoglobin (Bld) [Mass/Vol] 14.0 g/dL 12.0-15.0 [facility] Work Phone: Blood lymphocytes/100 leukoc yteson 06-27-2021 Lymphocytes/100 WBC (Bld) 35.0 % 19-41 [facility] Work Phone: [phone] Blood monocytes/100 leukocyt eson 06-27-2021 Monocytes/100 WBC (Bld) 9.6 % 0-10 [facility] Work Phone: Blood platelet mean volumeon 06-27-2021 Platelet mean volume (Bld) [Entitic vol] 9.6 fL 6.2-12.0 [facility] Work Phone: Determination of erythrocyte mean corpuscular volume (MCV)on 06-27-2021 MCV (RBC) [Entitic vol] 90.3 fL 81-99 [facility] Work Phone: Erythrocyte sedimentation ra magdalena 06-27-2021 ESR (Bld) [Velocity] 55 mm/h 0-30 [facility] Work Phone: Hematocrit Auto (Bld) [Volum e fraction]on 06-27-2021 Hematocrit (Bld) [Volume fraction] 43.0 % 37-47 [facility] Work Phone: Laboratory - Chemistry and C hemistry - challengeon 06-27-2021 ALP [Catalytic activity/Vol] 112 U/L 45-117 [facility] Work Phone: ALT [Catalytic activity/Vol] 25 U/L 13-56 [facility] Work Phone: CO2 [Moles/Vol] 27.0 mmol/L 21.0-32.0 [facility] Work Phone: Globulin (S) [Mass/Vol] 4.3 g/dL 2.2-4.2 [facility] Work Phone: Urea nitrogen/Creatinine [Mass ratio] 24.0 mg/mg 10-20 [facility] Work Phone: Laboratory - Hematology and Cell countson 06-27-2021 Erythrocyte distribution width (RBC) [Entitic vol] 47.6 fL 35.1-43.9 [facility] Work Phone: Erythrocyte distribution width (RBC) [Ratio] 14.3 % 11.6-14.6 [facility] Work Phone: Immature granulocytes/100 WBC (Bld) 0.400 % 0.0-0.9 [facility] Work Phone: Comment on above: IG% - Immature Granu locytes (promyelocytes, myelocytes and metamyelocytes) > 1% indicates that a LEFT SHIFT is Present. MCH (RBC) [Entitic mass] 29.4 pg 27.0-32.0 [facility] Work Phone: Nucleated RBC/100 WBC (Bld) [Ratio] 0 % 0-5 [facility] Work Phone: MCHC Auto (RBC) [Mass/Vol]on 06-27-2021 MCHC (RBC) [Mass/Vol] 32.6 g/dL 32-36 [facility] Work Phone: No Panel Informationon 06-27 Anti-Nuclear Antibody Screen Positive Negative [facility] Work Phone: Comment on above: Performed at: [place] [id number] Director: Chad Haskins PhD, Phone: [phone] Estimated GFR (MDRD) Amer 55 mL/min >60 [facility] Work Phone: Comment on above: GFR Calc Estimated GFR (MDRD) Non-Af Amer 46 mL/min >60 [facility] Work Phone: Comment on above: Non- GFR Calc Hepatitis B Surface Antigen Non-Reactive Nonreactive [facility] Work Phone: Hepatitis C Antibody Non-Reactive Nonreactive [facility] Work Phone: Comment on above: Non Reactive: < 0.8 Equivocal: >/= 0.8 to < 1.0 Reactive: >/= 1.0The CDC recommends that a reactive/equivocal HCV antibody result be followed up by the HCV Nucleic Acid Amplificationtest (301339) Platelets bldon 06-27-2021 Platelets (Bld) [#/Vol] 249 10*3/uL 150-450 [facility] Work Phone: Serum cyclic citrullinated p eptide IgG antibody assay (units/volume)on 06-27-2021 Cyclic citrullinated peptide IgG Qn 4 units 0-19 [facility] Work Phone: Comment on above: Negative <20 Weak po sitive 20 - 39 Moderate positive 40 - 59 Strong positive >59Performed at: [place] [id number] [place], [place] [id number] Director: Beth Moore MD, Phone: [phone] Serum hepatitis B virus surf maria luisa antibody IgG detectionon 06-27-2021 HBV surface IgG Ql (S) Reactive [facility] Work Phone: Comment on above: Non Reactive: Incons istent with immunity less than <10 mIU/mL Reactive: Consistent with immunity greater than or equal to 10 mIU/mL Serum or plasma C reactive p rotein measurement (mass/volume)on 06-27-2021 CRP [Mass/Vol] 17.50 mg/L 0.0-3.0 [facility] Work Phone: Comment on above: C-Reactive Protein ( CRP) provides useful information for thediagnosis, therapy and monitoring of inflammatory processesand associated diseases. For the evaluation of Relative Riskfor Cardiovascular Disease, a High Sensitivity CRP (HSCRP)should be ordered. Serum or plasma albumin griffin urement (mass/volume)on 06-27-2021 Albumin [Mass/Vol] 3.5 g/dL 3.2-5.0 [facility] Work Phone: Serum or plasma albumin/glob ulin mass ratioon 06-27-2021 Albumin/Globulin [Mass ratio] 0.8 {ratio} 0.9-2.4 [facility] Work Phone: Serum or plasma calcium griffin urement (mass/volume)on 06-27-2021 Calcium [Mass/Vol] 10.1 mg/dL 8.5-10.1 [facility] Work Phone: Serum or plasma creatinine m easurement (mass/volume)on 06-27-2021 Creatinine [Mass/Vol] 1.25 mg/dL 0.55-1.02 [facility] Work Phone: Comment on above: The validity of the calculated GFR & GFRAA in patients over 70 years has not been determined. Clinical correlation is essential. Serum or plasma urea nitroge n measurement (mass/volume)on 06-27-2021 Urea nitrogen [Mass/Vol] 30 mg/dL 7-18 [facility] Work Phone: Serum rheumatoid factor dete ctionon 06-27-2021 Rheumatoid factor Ql (S) 53.0 IU/mL <15 [facility] Work Phone: Thin prep Papanicolaou smear with manual screeningon 06-27-2021 Thin prep Papanicolaou smear with manual screening 18 U/L 15-37 [facility] Work Phone: Thin prep Papanicolaou smear with manual screening 5 5-15 [facility] Work Phone: CT ABDOMEN W/O CONon 017 CT ABDOMEN W/O CON CT ABDOMEN [...] on File ----Signed By: Chadd Julian MD [email or web address]/PACS/PACs. htmDictated: 03/14/2017 9:08 AMSigned: 03/14/2017 9:10 AM Reported By: CHADD JULIAN M.D. Signed By: CHADD JULIAN M.D. [facility] [place] FINE NEEDLE ASPIRATION THYRO IDon 03-14-2017 FINE NEEDLE ASPIRATION THYROID FINE NEEDLE ASPIRATION THYROID, US THYROID OR NECKOrdering Physician: Lucy Santos MD03/14/2017 9:00 AMTHYROID ULTRASOUND WITH ULTRASOUND-GUIDED THYROID FINE-NEEDLEASPIRATION :Clinical Statement: Thyroid nodule.Comparison: Thyroid ultrasound 11/20/2016.FINDINGS: Initial [...] tolerated the procedure well with no immediate complications.IMPRESS ION:Technically successful ultrasound-guided fine-needle aspiration of thepredominantly solid left thyroid lobe nodule as described. ---- Electronic Signature on File ----Signed By: Lindsey [email or web address] adiology/PACS/PACs. mDictated: 03/14/2017 11:14 AMSigned: 03/14/2017 11:17 AM Reported By: KENYON CASTANEDA M.D. Signed By: KENYON CASTANEDA M.D. [facility] Rachna Brown 03-14-2017 NONGYN - --------Patient: ANH EWING Speci men: [id number] Spec Type: NONGYN Ord. Dr.: Lucy Santos MD Status: SOUT Collect Date: 03/14/17927 Received Date: 03/14/17 1000Source: Thyroid gland, NOS(FNA [...] nodule.Signed Verified/Reviewed by JORGITO GIVENS MD 03/19/17 --------[facility] NAME: ANH EWING Pathology and Laboratory Medicine UNIT#: [id number] LOC: [facility] Clinical Assistant Professor: Ban Fong M.D. [id number] ROOM/BED: Mydish : 55 AGE/SEX: 62/F ORD.Lucy Teague MD END OF REPORT Normal [facility] [place] US THYROID OR NECKon 017 US THYROID OR NECK FINE NEEDLE ASPIRATION THYROID, US THYROID OR NECKOrdering Physician: Lucy Santos MD03/14/2017 9:00 AMTHYROID ULTRASOUND WITH ULTRASOUND-GUIDED THYROID FINE-NEEDLEASPIRATION :Clinical Statement: Thyroid nodule.Comparison: Thyroid ultrasound 11/20/2016.FINDINGS: Initial [...] tolerated the procedure well with no immediate complications.IMPRESS ION:Technically successful ultrasound-guided fine-needle aspiration of thepredominantly solid left thyroid lobe nodule as described. ---- Electronic Signature on File ----Signed By: Kenyon Castaneda [email or web address] adiology/PACS/PACs. mDictated: 03/14/2017 11:14 AMSigned: 03/14/2017 11:17 AM Reported By: KENYON CASTANEDA M.D. Signed By: KENYON CASTANEDA M.D. Normal [facility] [place] Basic Metabolic Panelon 02-14 Anion gap 14 mmol/L Normal - [facility] Comment on above: Order Comment: CALL doctor [id number] tel. , fax [phone] by Dr Lucy Santos Result Comment: Effe ctive: 02/24/2017Reference Range Modified Calcium 9.3 mg/dL Normal 8.6-10.2 [facility] Comment on above: Order Comment: CALL doctor [id number] tel. , fax [phone] by Dr Lucy Santos Chloride 104 mmol/L Normal 98-107 [facility] Comment on above: Order Comment: CALL doctor [id number] tel. , fax [phone] by Dr Lucy Santos Result Comment: Effe ctive: 02/24/2017Reference Range Modified CO2 27 mmol/L Critically high 17-24 [facility] Comment on above: Order Comment: CALL doctor [id number] tel. , fax [phone] by Dr Lucy Santos Result Comment: Effe ctive: 02/24/2017Reference Range Modified Creatinine 0.88 mg/dL Normal 0.50-0.90 [facility] Comment on above: Order Comment: CALL doctor [id number] tel. , fax [phone] by Dr Lucy Santos eGFR (black) mL/min/{1.73_m2} Normal >60 [facility] Comment on above: Order Comment: CALL doctor [id number] tel. , fax [phone] by Dr Lucy Santos Result Comment: >60 mL/min/1.73m2 EGFR, calc. for ages 18 and older using theMDRD formula (not corrected for weight), is valid for stablerenal function. eGFR (MDRD) mL/min/{1.73_m2} Normal >60 [facility] Comment on above: Order Comment: CALL doctor [id number] tel. , fax [phone] by Dr Lucy Santos Result Comment: >60 mL/min/1.73m2 EGFR, calc. for ages 18 and older using theMDRD formula (not corrected for weight), is valid for stablerenal function. Glucose mass conc 105 mg/dL Normal 74-109 [facility] Comment on above: Order Comment: CALL doctor [id number] tel. , fax [phone] by Dr Lucy Santos Potassium molar conc 4.6 mmol/L Critically high 3.2-4.4 [facility] Comment on above: Order Comment: CALL doctor [id number] tel. , fax [phone] by Dr Lucy Santos Result Comment: Effe ctive: 02/24/2017Reference Range Modified Sodium 145 mmol/L Critically high 132-138 [facility] Comment on above: Order Comment: CALL doctor [id number] tel. , fax [phone] by Dr Lucy Santos Result Comment: Effe ctive: 02/24/2017Reference Range Modified Urea nitrogen 26 mg/dL Critically high 8-23 [facility] Comment on above: Order Comment: CALL doctor [id number] tel. , fax [phone] by Dr Lucy Santos Hemoglobin A1con 02-25-2017 Hemoglobin A1c/Hemoglobin.total mass fraction (Bld) 5.9 % Normal 4.8-5.9 [facility] Comment on above: Order Comment: CALL doctor [id number] tel. , fax [phone] by Dr Lucy Santos Lipid Panelon 02-25-2017 Cholesterol 190 mg/dL Normal 0-199 [facility] Comment on above: Order Comment: CALL doctor [id number] tel. , fax [phone] by Dr Lucy Santos Result Comment: ATP III Cholesterol classification is Desirable. HDL Cholesterol 41 mg/dL Normal 40-59 [facility] Comment on above: Order Comment: CALL doctor [id number] tel. , fax [phone] by Dr Lucy Santos Result Comment: ATP III HDL Cholesterol Classification is Desirable.Expected Values:Males: >55 = No Risk 35-55 = Moderate Risk <35 = High RiskFemales: >65 = No Risk 45-65 = Moderate Risk <45 = High RiskNCEP Guidelines: Third Report July 2000>59 = negative risk factor for CHD<40 = major risk factor for CHD LDL Cholesterol 100 mg/dL Normal 0-129 [facility] Comment on above: Order Comment: CALL doctor [id number] tel. , fax [phone] by Dr Lucy Santos Result Comment: ATP III LDL Classification is Near Optimal. Triglyceride 247 mg/dL Critically high 0-200 [facility] Comment on above: Order Comment: CALL doctor [id number] tel. , fax [phone] by Dr Lucy Santos Result Comment: ATP [...] ---- Electronic Signature on File ----Signed By: Radha Velazquez [email or web address] adiology/PACS/PACs. mDictated: 11/20/2016 8:30 AMSigned: 11/20/2016 8:35 AM Reported By: RADHA VELAZQUEZ M.D. Signed By: RADHA VELAZQUEZ M.D. Normal [facility] [place] CARD.Echoon 09-21-2016 CARD.Echo [Embedded Image Not Available][facility] Patient Name: ANH EWING [email or web address] Date of : [address] [address] Unit Number: [id number] Number: [id number] Patient Status: REG CLIAttending Doctor: Lucy Santos MDService Date: 09/21/16 1825EchocardiogramStu dy Date: 09/19/16llergies:Cod ed Allergies:SULFA (SULFONAMIDE ANTIBIOTICS) (Mild, 10/10/11)Summary:[facility] [place] [facility] [address], [place] [address]Qeujfkbrrpz Cardiac DiagnosticsName: ANH EWIGN Study Date: 09/19/2016 09:04 AM BP: 153/75 mmHgMRN: [id number] Patient Location: op HR: 56DOB: 1955 Gender: Female Height: 64 inAge: 61 yrs Weight: 275 lbReason For Study: DYSPNEABSA: 2.2 kwgbzc6Booxema: Dyspnea or SOB,Hypertension,Lung Disease,Edema,Light-h eaded,SyncopeInterpre tation SummaryLeft ventricular systolic function is normal.LVEF 55-60 [...] no mitral valve stenosis. There is trace mitralregurgitation.T ricuspid ValveThe tricuspid valve is normal. There is no tricuspid stenosis. There is trace tricuspidregurgitatio n. Right ventricular systolic pressure is normal.Aortic ValveThe aortic valve is normal in structure and function. The aortic valve is trileaflet. Nohemodynamically significant valvular aortic stenosis. No aortic regurgitation is present.Pulmonic ValveThe pulmonic valve is normal in structure and function. There is no pulmonic valvularstenosis. Mild pulmonic valvular regurgitation.Great VesselsThe aortic root is normal size. The pulmonary artery is normal size. IVC not wellvisualised.Perica rdium/PleuralThere is no pericardial effusion.MMode/2D Measurements and CalculationsIVSd: 0.88 cmIVSs: 1.6 cmLVIDd: 5.8 cmLVIDs: 3.2 cmLVPWd: 1.0 cmLVPWs: 1.5 cmFS: 44.7 %EF(Teich): 75.2 %% IVS thick: 83.3 % LVA d sax epi: 36.3 cm2LV mass(AL)d: 190.5 gramsAo root diam: 2.9 cmAo root area: 6.4 cm2ACS: 1.9 cmLA dimension: 3.9 cmLVOT diam: 2.1 cmEF(MOD-sp4): 53.6 % LVL d apical: 8.6 cmLVAd sax PM: 15.9 bq6Nkdz MeasurementsAortic R-R: 1.2 secAortic HR: 52.0 BPMDoppler Measurements and CalculationsMV E max pacheco: 109.0 cm/secMV A max pacheco: 87.8 cm/secMV E/A: 1.2MV max P.1 mmHgMV mean P.7 mmHgMVA(VTI): 2.4 cm2MV P1/2t: 102.1 msecMVA(P1/2t): 2.2 cm2MV dec time: 0.24 secAo V2 max: 118.1 cm/secAo max P.6 mmHgAo mean P.2 mmHgAo V2 VTI: 30.5 cmAVA(I,D): 3.2 cm2AVA(V,D): 3.3 cm2 L V V1 max: 108.0 cm/secLV V1 mean: 76.7 cm/secLV V1 VTI: 27.0 cmCO(LVOT): 5.0 l/minPA max P.7 mmHgPI end-d pacheco: 71.9 cm/sec --TR max pacheco: 169.7 cm/secTR max P.5 mmHgRVSP(TR): 21.5 mmHgRAP systole: 10.0 mmHg Reviewed/Verified By:NICOLAS RANGEL 09/21/2016 06:21 PMOrdering Physician: Clint Physician: Irishformed By: 14DisclaimerThis dictation was created using voice recognition software.Phonetic and/or minor grammatical errors may exist.eSign Date and TimePatel,Nicolas Portillo MD [facility] Echocardiogram This is a preliminar y report only, as the practitioner review and authentication has not occurred. [facility] No Panel Information [facility] Vital Signs Date Time Vital Sign Value Performing Clinician Facility 09-23-2024 13:03-0400 Body height 162.[address] Moni Velásquez MD Work Phone: [facility] 09-23-2024 13:03-0400 Body mass index (BMI) [Ratio] 48 kg/m2 Dr. Moni Velásquez MD Work Phone: [facility] 09-23-2024 13:03-0400 Body temperature 97.8 [degF] Dr. Moni Velásquez MD Work Phone: [facility] 09-23-2024 13:03-0400 Body weight [address] Moni Velásquez MD Work Phone: [facility] 09-23-2024 13:03-0400 Diastolic blood pressure 68 mm[Hg] Dr. Moni Velásquez MD Work Phone: [facility] 09-23-2024 13:03-0400 Heart rate 66 /min Dr. Moni Velásquez MD Work Phone: [facility] 09-23-2024 13:03-0400 Respiratory rate 18 /min Dr. Moni Velásquez MD Work Phone: [facility] 09-23-2024 13:03-0400 SaO2% (BldA) [Mass fraction] 93 % Dr. Moni Velásquez MD Work Phone: [facility] 09-23-2024 13:03-0400 Systolic blood pressure 132 mm[Hg] Dr. Moni Velásquez MD Work Phone: [facility] 05-19-2024 09:45-0500 Body height 162.[address] Moni Velásquez MD Work Phone: [facility] 05-19-2024 09:45-0500 Body mass index (BMI) [Ratio] 48.5 kg/m2 Dr. Moni Velásquez MD Work Phone: [facility] 05-19-2024 09:45-0500 Body temperature 96.2 [degF] Dr. Moni Velásquez MD Work Phone: [facility] 05-19-2024 09:45-0500 Body weight 128.[address] Moni Velásquez MD Work Phone: [facility] 05-19-2024 09:45-0500 Diastolic blood pressure 74 mm[Hg] Dr. Moni Velásquez MD Work Phone: [facility] 05-19-2024 09:45-0500 Heart rate 59 /min Dr. Moni Velásquez MD Work Phone: [facility] 05-19-2024 09:45-0500 Respiratory rate 16 /min Dr. Moni Velásquez MD Work Phone: [facility] 05-19-2024 09:45-0500 SaO2% (BldA) [Mass fraction] 95 % Dr. Moni Velásquez MD Work Phone: [facility] 05-19-2024 09:45-0500 Systolic blood pressure 128 mm[Hg] Dr. Moni Velásquez MD Work Phone: [facility] 02-18-2024 09:48-0500 Body mass index (BMI) [Ratio] 47.3 kg/m2 Dr. Moni Velásquez MD Work Phone: [facility] 02-18-2024 09:48-0500 Body temperature 97.8 [degF] Dr. Moni Velásquez MD Work Phone: [facility] 02-18-2024 09:48-0500 Body weight 125.[address] Moni Velásquez MD Work Phone: [facility] 02-18-2024 09:48-0500 Diastolic blood pressure 66 mm[Hg] Dr. Moni Velásquez MD Work Phone: [facility] 02-18-2024 09:48-0500 Heart rate 75 /min Dr. Moni Velásquez MD Work Phone: [facility] 02-18-2024 09:48-0500 Respiratory rate 16 /min Dr. Moni Velásquez MD Work Phone: [facility] 02-18-2024 09:48-0500 SaO2% (BldA) [Mass fraction] 95 % Dr. Moni Velásquez MD Work Phone: [facility] 02-18-2024 09:48-0500 Systolic blood pressure 120 mm[Hg] Dr. Moni Velásquez MD Work Phone: [facility] 05-08-2023 14:40-0500 Body height 162.[address] Moni Velásquez Work Phone: [facility] 05-08-2023 14:40-0500 Body mass index (BMI) [Ratio] 46.7 kg/m2 Dr. Moni Velásquez Work Phone: [facility] 05-08-2023 14:40-0500 Body temperature 98 [degF] Dr. Moni Velásquez Work Phone: [facility] 05-08-2023 14:40-0500 Body weight 123.[address] Moni Velásquez Work Phone: [facility] 05-08-2023 14:40-0500 Diastolic blood pressure 84 mm[Hg] Dr. Moni Velásquez Work Phone: [facility] 05-08-2023 14:40-0500 Heart rate 60 /min Dr. Moni Velásquez Work Phone: [facility] 05-08-2023 14:40-0500 Respiratory rate 18 /min Dr. Moni Velásquez Work Phone: [facility] 05-08-2023 14:40-0500 SaO2% (BldA) [Mass fraction] 98 % Dr. Moni Velásquez Work Phone: [facility] 05-08-2023 14:40-0500 Systolic blood pressure 136 mm[Hg] Dr. Moni Velásquez Work Phone: [facility] 05-01-2023 10:52-0500 Body height 162.[address] Moni Velásquez Work Phone: [facility] 05-01-2023 10:52-0500 Body mass index (BMI) [Ratio] 46.1 kg/m2 Dr. Moni Velásquez Work Phone: [facility] 05-01-2023 10:52-0500 Body temperature 97.3 [degF] Dr. Moni Velásquez Work Phone: [facility] 05-01-2023 10:52-0500 Body weight 122.[address] Moni Velásquez Work Phone: [facility] 05-01-2023 10:52-0500 Diastolic blood pressure 80 mm[Hg] Dr. Moni Velásquez Work Phone: [facility] 05-01-2023 10:52-0500 Heart rate 65 /min Dr. Moni Velásquez Work Phone: [facility] 05-01-2023 10:52-0500 Respiratory rate 16 /min Dr. Moni Velásquez Work Phone: [facility] 05-01-2023 10:52-0500 SaO2% (BldA) [Mass fraction] 96 % Dr. Moni Velásquez Work Phone: [facility] 05-01-2023 10:52-0500 Systolic blood pressure 122 mm[Hg] Dr. Moni Velásquez Work Phone: [facility] 04-25-2023 10:33-0500 Body height 164.2 cm Aric Guerrier MD Work Phone: [facility] 04-25-2023 10:33-0500 Body temperature 97.11 [degF] Aric Guerrier MD Work Phone: [facility] 04-25-2023 10:33-0500 Body weight 122.24 kg Aric Guerrier MD Work Phone: [facility] 04-25-2023 10:33-0500 Diastolic blood pressure 70 mm[Hg] Aric Guerrier MD Work Phone: [facility] 04-25-2023 10:33-0500 Heart rate 60 /min Aric Guerrier MD Work Phone: [facility] 04-25-2023 10:33-0500 SaO2% (BldA) [Mass fraction] 96 % Aric Guerrier MD Work Phone: [facility] 04-25-2023 10:33-0500 Systolic blood pressure 105 mm[Hg] Aric Guerrier MD Work Phone: [facility] 04-17-2023 11:25-0500 Body mass index (BMI) [Ratio] 46.5 kg/m2 Dr. Moni Velásquez Work Phone: [facility] 04-17-2023 11:25-0500 Body temperature 98.3 [degF] Dr. Moni Velásquez Work Phone: [facility] 04-17-2023 11:25-0500 Body weight 122.[address] Moni Velásquez Work Phone: [facility] 04-17-2023 11:25-0500 Diastolic blood pressure 70 mm[Hg] Dr. Moni Velásquez Work Phone: [facility] 04-17-2023 11:25-0500 Heart rate 68 /min Dr. Moni Velásquez Work Phone: [facility] 04-17-2023 11:25-0500 Respiratory rate 20 /min Dr. Moni Velásquez Work Phone: [facility] 04-17-2023 11:25-0500 SaO2% (BldA) [Mass fraction] 91 % Dr. Moni Velásquez Work Phone: [facility] 04-17-2023 11:25-0500 Systolic blood pressure 108 mm[Hg] Dr. Moni Velásquez Work Phone: [facility] 04-09-2023 09:44-0500 Inhaled oxygen flow rate 2 L/min Dr. Moni Velásquez Work Phone: [facility] 04-09-2023 09:44-0500 SaO2% (BldA) [Mass fraction] 92 % Dr. Moni Velásquez Work Phone: [facility] 04-09-2023 08:58-0500 Body temperature 98.1 [degF] Dr. Moni Velásquez Work Phone: [facility] 04-09-2023 08:58-0500 Diastolic blood pressure 86 mm[Hg] Dr. Moni Velásquez Work Phone: [facility] 04-09-2023 08:58-0500 Heart rate 68 /min Dr. Moni Velásquez Work Phone: [facility] 04-09-2023 08:58-0500 Respiratory rate 17 /min Dr. Moni Velásquez Work Phone: [facility] 04-09-2023 08:58-0500 Systolic blood pressure 98 mm[Hg] Dr. Moni Velásquez Work Phone: [facility] 04-08-2023 17:18-0500 Body temperature 98 [degF] Dr. Moni Velásquez Work Phone: [facility] 04-08-2023 17:18-0500 Diastolic blood pressure 79 mm[Hg] Dr. Moni Velásquez Work Phone: [facility] 04-08-2023 17:18-0500 Heart rate 62 /min Dr. Moni Velásquez Work Phone: [facility] 04-08-2023 17:18-0500 Respiratory rate 17 /min Dr. Moni Velásquez Work Phone: [facility] 04-08-2023 17:18-0500 SaO2% (BldA) [Mass fraction] 95 % Dr. Moni Velásquez Work Phone: [facility] 04-08-2023 17:18-0500 Systolic blood pressure 102 mm[Hg] Dr. Moni Velásquez Work Phone: [facility] 04-08-2023 03:00-0500 Inhaled oxygen flow rate 2 L/min Dr. Moni Velásquez Work Phone: [facility] 04-07-2023 15:39-0500 Body height 162.[address] Moni Velásquez Work Phone: [facility] 04-07-2023 15:39-0500 Body weight 123.[address] Moni Velásquez Work Phone: [facility] 04-06-2023 12:05-0500 Body mass index (BMI) [Ratio] 46.8 kg/m2 Dr. Moni Velásquez Work Phone: [facility] 04-06-2023 11:43-0500 Diastolic blood pressure 59 mm[Hg] Dr. Moni Velásquez Work Phone: [facility] 04-06-2023 11:43-0500 Heart rate 75 /min Dr. Moni Velásquez Work Phone: [facility] 04-06-2023 11:43-0500 Respiratory rate 22 /min Dr. Moni Velásquez Work Phone: [facility] 04-06-2023 11:43-0500 SaO2% (BldA) [Mass fraction] 97 % Dr. Moni Velásquez Work Phone: [facility] 04-06-2023 11:43-0500 Systolic blood pressure 111 mm[Hg] Dr. Moni Velásquez Work Phone: [facility] 04-06-2023 10:05-0500 Body mass index (BMI) [Ratio] 47.2 kg/m2 Dr. Moni Velásquez Work Phone: [facility] 04-06-2023 10:05-0500 Body weight 124.[address] Moni Velásquez Work Phone: [facility] 04-06-2023 09:52-0500 Inhaled oxygen concentration 98 % Dr. Moni Velásquez Work Phone: [facility] 04-06-2023 09:52-0500 Inhaled oxygen flow rate 2 L/min Dr. Moni Velásquez Work Phone: [facility] 04-06-2023 09:25-0500 Body height 162.[address] Moni Velásquez Work Phone: [facility] 04-06-2023 09:25-0500 Body temperature 98.1 [degF] Dr. Moni Velásquez Work Phone: [facility] 04-03-2023 08:57-0500 Body mass index (BMI) [Ratio] 47.3 kg/m2 Dr. Moni Velásquez Work Phone: [facility] 04-03-2023 08:57-0500 Body weight 125.[address] Moni Velásquez Work Phone: [facility] 04-03-2023 08:57-0500 Diastolic blood pressure 58 mm[Hg] Dr. Moni Velásquez Work Phone: [facility] 04-03-2023 08:57-0500 Heart rate 66 /min Dr. Moni Velásquez Work Phone: [facility] 04-03-2023 08:57-0500 Respiratory rate 18 /min Dr. Moni Velásquez Work Phone: [facility] 04-03-2023 08:57-0500 Systolic blood pressure 104 mm[Hg] Dr. Moni Velásquez Work Phone: [facility] 02-19-2023 10:52-0500 Body height 162.[address] Moni Velásquez Work Phone: [facility] 02-19-2023 10:52-0500 Body mass index (BMI) [Ratio] 47.7 kg/m2 Dr. Moni Velásquez Work Phone: [facility] 02-19-2023 10:52-0500 Body temperature 98.6 [degF] Dr. Moni Velásquez Work Phone: [facility] 02-19-2023 10:52-0500 Body weight 126.[address] Moni Velásquez Work Phone: [facility] 02-19-2023 10:52-0500 Diastolic blood pressure 76 mm[Hg] Dr. Moni Velásquez Work Phone: [facility] 02-19-2023 10:52-0500 Heart rate 80 /min Dr. Moni Velásquez Work Phone: [facility] 02-19-2023 10:52-0500 Respiratory rate 18 /min Dr. Moni Velásquez Work Phone: [facility] 02-19-2023 10:52-0500 SaO2% (BldA) [Mass fraction] 96 % Dr. Moni Velásquez Work Phone: [facility] 02-19-2023 10:52-0500 Systolic blood pressure 118 mm[Hg] Dr. Moni Velásquez Work Phone: [facility] 11-20-2022 09:25-0400 Body height 162.[address] Moni Velásquez Work Phone: [facility] 11-20-2022 09:25-0400 Body mass index (BMI) [Ratio] 48 kg/m2 Dr. Moni Velásquez Work Phone: [facility] 11-20-2022 09:25-0400 Body weight [address] Moni Velásquez Work Phone: [facility] 11-20-2022 09:25-0400 Diastolic blood pressure 74 mm[Hg] Dr. Moni Velásquez Work Phone: [facility] 11-20-2022 09:25-0400 Heart rate 66 /min Dr. Moni Velásquez Work Phone: [facility] 11-20-2022 09:25-0400 Respiratory rate 20 /min Dr. Moni Velásquez Work Phone: [facility] 11-20-2022 09:25-0400 SaO2% (BldA) [Mass fraction] 94 % Dr. Moni Velásquez Work Phone: [facility] 11-20-2022 09:25-0400 Systolic blood pressure 118 mm[Hg] Dr. Moni Velásquez Work Phone: [facility] 11-13-2022 14:32-0400 Body mass index (BMI) [Ratio] 48.7 kg/m2 Dr. Moni Velásquez Work Phone: [facility] 11-13-2022 14:32-0400 Body temperature 97.7 [degF] Dr. Moni Velásquez Work Phone: [facility] 11-13-2022 14:32-0400 Body weight 128.[address] Moni Velásquez Work Phone: [facility] 11-13-2022 14:32-0400 Diastolic blood pressure 82 mm[Hg] Dr. Moni Velásquez Work Phone: [facility] 11-13-2022 14:32-0400 Heart rate 64 /min Dr. Moni Velásquez Work Phone: [facility] 11-13-2022 14:32-0400 Respiratory rate 18 /min Dr. Moni Velásquez Work Phone: [facility] 11-13-2022 14:32-0400 SaO2% (BldA) [Mass fraction] 96 % Dr. Moni Velásquez Work Phone: [facility] 11-13-2022 14:32-0400 Systolic blood pressure 134 mm[Hg] Dr. Moni Velásquez Work Phone: [facility] 09-18-2022 10:28-0400 Body mass index (BMI) [Ratio] 48.9 kg/m2 Dr. Moni Velásquez Work Phone: [facility] 09-18-2022 10:28-0400 Body weight 129.[address] Moni Velásquez Work Phone: [facility] 09-18-2022 10:28-0400 Diastolic blood pressure 81 mm[Hg] Dr. Moni Velásquez Work Phone: [facility] 09-18-2022 10:28-0400 Heart rate 62 /min Dr. Moni Velásquez Work Phone: [facility] 09-18-2022 10:28-0400 Respiratory rate 20 /min Dr. Moni Velásquez Work Phone: [facility] 09-18-2022 10:28-0400 SaO2% (BldA) [Mass fraction] 96 % Dr. Moni Velásquez Work Phone: [facility] 09-18-2022 10:28-0400 Systolic blood pressure 132 mm[Hg] Dr. Moni Velásquez Work Phone: [facility] 08-07-2022 09:02-0400 Diastolic blood pressure 82 mm[Hg] Dr. Moni Velásquez Work Phone: [facility] 08-07-2022 09:02-0400 Heart rate 62 /min Dr. Moni Velásquez Work Phone: [facility] 08-07-2022 09:02-0400 Respiratory rate 20 /min Dr. Moni Velásquez Work Phone: [facility] 08-07-2022 09:02-0400 Systolic blood pressure 127 mm[Hg] Dr. Moni Velásquez Work Phone: [facility] 07-31-2022 09:18-0400 Diastolic blood pressure 96 mm[Hg] Dr. Moni Velásquez Work Phone: [facility] 07-31-2022 09:18-0400 Heart rate 65 /min Dr. Moni Velásquez Work Phone: [facility] 07-31-2022 09:18-0400 Respiratory rate 20 /min Dr. Moni Velásquez Work Phone: [facility] 07-31-2022 09:18-0400 Systolic blood pressure 158 mm[Hg] Dr. Moni Velásquez Work Phone: [facility] 07-18-2022 14:18-0400 Diastolic blood pressure 91 mm[Hg] Dr. Moni Velásquez Work Phone: [facility] 07-18-2022 14:18-0400 Heart rate 60 /min Dr. Moni Velásquez Work Phone: [facility] 07-18-2022 14:18-0400 Respiratory rate 16 /min Dr. Moni Velásquez Work Phone: [facility] 07-18-2022 14:18-0400 Systolic blood pressure 153 mm[Hg] Dr. Moni Velásquez Work Phone: [facility] 07-04-2022 08:25-0400 Body height 162.[address] Moni Velásquez Work Phone: [facility] 07-04-2022 08:25-0400 Body mass index (BMI) [Ratio] 49.8 kg/m2 Dr. Moni Velásquez Work Phone: [facility] 07-04-2022 08:25-0400 Body weight 131.[address] Moni Velásquez Work Phone: [facility] 07-04-2022 08:25-0400 Diastolic blood pressure 85 mm[Hg] Dr. Moni Velásquez Work Phone: [facility] 07-04-2022 08:25-0400 Heart rate 62 /min Dr. Moni Velásquez Work Phone: [facility] 07-04-2022 08:25-0400 Respiratory rate 22 /min Dr. Moni Velásquez Work Phone: [facility] 07-04-2022 08:25-0400 SaO2% (BldA) [Mass fraction] 93 % Dr. Moni Velásquez Work Phone: [facility] 07-04-2022 08:25-0400 Systolic blood pressure 147 mm[Hg] Dr. Moni Velásquez Work Phone: [facility] 12-27-2021 08:23-0400 Body height 162.[address] Moni Velásquez Work Phone: [facility] Work Phone: 12-27-2021 08:23-0400 Diastolic blood pressure 90 mm[Hg] Dr. Moni Velásquez Work Phone: [facility] Work Phone: 12-27-2021 08:23-0400 Systolic blood pressure 128 mm[Hg] Dr. Moni Velásquez Work Phone: [facility] Work Phone: 12-27-2021 08:23-0400 Body mass index (BMI) [Ratio] 49.1 kg/m2 Dr. Moni Velásquez Work Phone: [facility] Work Phone: 12-27-2021 08:23-0400 Body weight 129.[address] Moni Velásquez Work Phone: [facility] Work Phone: 12-27-2021 08:23-0400 Heart rate 59 /min Dr. Moni Velásquez Work Phone: [facility] Work Phone: 12-27-2021 08:23-0400 Respiratory rate 20 /min Dr. Moni Velásquez Work Phone: [facility] Work Phone: 12-27-2021 08:23-0400 SaO2% (BldA) [Mass fraction] 93 % Dr. Moni Velásquez Work Phone: [facility] Work Phone: 06-22-2021 10:39-0400 Body height 162.[address] Moni Velásquez Work Phone: [facility] Work Phone: 06-22-2021 10:39-0400 Body weight 131.[address] Moni Velásquez Work Phone: [facility] Work Phone: 06-22-2021 10:39-0400 Diastolic blood pressure 72 mm[Hg] Dr. Moni Velásquez Work Phone: [facility] Work Phone: 06-22-2021 10:39-0400 Heart rate 56 /min Dr. Moni Velásquez Work Phone: [facility] Work Phone: 06-22-2021 10:39-0400 Respiratory rate 18 /min Dr. Moni Velásquez Work Phone: [facility] Work Phone: 06-22-2021 10:39-0400 Systolic blood pressure 124 mm[Hg] Dr. Moni Velásquez Work Phone: [facility] Work Phone: 06-22-2021 10:39-0400 Body height 162.[address] Moni Velásquez Work Phone: [facility] Work Phone: 06-22-2021 10:39-0400 Body weight 131.[address] Moni Velásquez Work Phone: [facility] Work Phone: 06-22-2021 10:39-0400 Diastolic blood pressure 72 mm[Hg] Dr. Moni Velásquez Work Phone: [facility] Work Phone: 06-22-2021 10:39-0400 Heart rate 56 /min Dr. Moni Velásquez Work Phone: [facility] Work Phone: 06-22-2021 10:39-0400 Respiratory rate 18 /min Dr. Moni Velásquez Work Phone: [facility] Work Phone: 06-22-2021 10:39-0400 Systolic blood pressure 124 mm[Hg] Dr. Moni Velásquez Work Phone: [facility] Work Phone: 04-11-2021 12:15-0500 Body mass index (BMI) [Ratio] 50.1 kg/m2 Dr. Moni Velásquez Work Phone: [facility] Work Phone: 04-11-2021 12:15-0500 Body weight 132.[address] Moni Velásquez Work Phone: [facility] Work Phone: 03-29-2021 07:39-0500 Body mass index (BMI) [Ratio] 49.6 kg/m2 Dr. Moni Velásquez Work Phone: [facility] Work Phone: 03-29-2021 07:39-0500 Body temperature 98.9 [degF] Dr. Moni Velásquez Work Phone: [facility] Work Phone: 03-29-2021 07:39-0500 Body weight 131.[address] Moni Velásquez Work Phone: [facility] Work Phone: 03-29-2021 07:39-0500 Diastolic blood pressure 84 mm[Hg] Dr. Moni Velásquez Work Phone: [facility] Work Phone: 03-29-2021 07:39-0500 Heart rate 60 /min Dr. Moni Velásquez Work Phone: [facility] Work Phone: 03-29-2021 07:39-0500 Respiratory rate 14 /min Dr. Moni Velásquez Work Phone: [facility] Work Phone: 03-29-2021 07:39-0500 SaO2% (BldA) [Mass fraction] 97 % Dr. Moni Velásquez Work Phone: [facility] Work Phone: 03-29-2021 07:39-0500 Systolic blood pressure 132 mm[Hg] Dr. Moni Velásquez Work Phone: [facility] Work Phone: 05-01-2020 14:28-0500 Body mass index (BMI) [Ratio] 49.9 kg/m2 Dr. Moni Velásquez Work Phone: [facility] Work Phone: 05-01-2020 13:28-0500 Body mass index (BMI) [Ratio] 49.9 kg/m2 Dr. Moni Velásquez Work Phone: [facility] Work Phone: Encounters Encounter Date Encounter Type Care Provider Facility Start: 09-23-2024 End: 09-23-[address] Moni Velásquez MD -[facility] Work Phone: Start: 09-23-2024 End: 09-23-[address] Moni Velásquez MD Work Phone: -[facility] Start: 07-16-2024 End: 07-16-[address] Moni Velásquez MD Work Phone: [facility] Work Phone: Start: 07-16-2024 End: 07-16-[address] [facility] Start: 07-16-2024 End: 07-16-2024 ambulatory Moni Velásquez Facility:[facility] Start: 06-10-2024 End: 06-10-[address] Moni Velásquez MD Work Phone: [facility] Work Phone: Start: 06-10-2024 End: 06-10-[address] Moni Velásquez MD -Outpatient Breast Imaging Work Phone: Start: 06-10-2024 End: 06-10-2024 ambulatory Moni Velásquez Facility:[facility] Start: 05-19-2024 End: 05-19-[address] Moni Velásquez MD -[facility] Work Phone: Start: 05-19-2024 End: 05-19-2024 ambulatory Moni Velásquez Facility:[facility] Start: 04-26-2024 End: 04-26-[address] Andreina Cruz MD -Laboratory, [place] Work Phone: Start: 04-26-2024 End: 04-26-2024 ambulatory Efewongbe Olee Facility:[facility] Start: 04-23-2024 End: 04-23-[address] Andreina Cruz MD -Laboratory, [place] Work Phone: Start: 04-23-2024 End: 04-23-2024 ambulatory Efewongbe Oleghe Facility:[facility] Start: 02-18-2024 End: 02-18-[address] Moni Velásquez MD -[facility] Work Phone: Start: 02-18-2024 End: 02-18-2024 ambulatory Efewongbe Oleghe Facility:[facility] Start: 01-30-2024 End: 01-30-2024 ambulatory Efewphoenixbe Olee Facility:[facility] Start: 01-12-2024 End: 01-12-2024 [facility] Start: 01-10-2024 End: 01-10-2024 Emergency department patient visit Syed Wood Facility:[facility] Start: 12-24-2023 End: 12-25-2023 [facility] Facility:[facility] Start: 12-17-2023 End: 12-17-2023 ambulatory Efewongbe Oleghe Facility:[facility] Start: 12-05-2023 ambulatory Efewongbe Oleghe Facili ty:[facility] Start: 12-05-2023 End: 12-05-2023 ambulatory Efewongbe Olee Facility:[facility] Start: 11-27-2023 End: 11-27-2023 ambulatory Efewphoenixbe Olee Facility:[facility] Start: 11-24-2023 End: 11-24-2023 ambulatory Efewongbe Oleghe Facility:[facility] Start: 11-03-2023 End: 11-03-2023 ambulatory Andreina Cruz Facility:[facility] Start: 10-16-2023 End: 10-16-2023 ambulatory Moni Velásquez Facility:[facility] Start: 05-28-2023 End: 05-28-2023 ambulatory MONI VELÁSQUEZ Facility:[facility] Start: 05-28-2023 End: 05-28-2023 Patient encounter procedure Kiran Gifford MD Work Phone: Ophthalmology Comment on above: Status post corneal transplant (Primary Dx); Corneal scar, right eye; Pseudophakia Start: 05-16-2023 End: 05-16-[address] Moni Velásquez Work Phone: [facility] Work Phone: Start: 05-16-2023 End: 05-16-[address] Moni Velásquez Work Phone: [facility] [place] Work Phone: Start: 05-12-2023 End: 05-12-[address] Moni Velásquez Work Phone: [facility] Work Phone: Start: 05-12-2023 End: 05-12-[address] [facility] Start: 05-09-2023 End: 05-09-[address] Moni Velásquez Work Phone: [facility] Work Phone: Start: 05-09-2023 End: 05-09-[address] Moni Velásquez Work Phone: [facility] Work Phone: Start: 05-08-2023 End: 05-08-[address] Moni Velásquez Work Phone: [facility] Work Phone: Start: 05-08-2023 End: 05-08-[address] Moni Velásquez Work Phone: [facility] Internal [facility] Work Phone: Start: 05-02-2023 Non-patient / Non-visit Dr. Moni Velásquez Work Phone: [facility] Start: 05-02-2023 End: 05-02-[address] Moni Velásquez Work Phone: [facility] Work Phone: Start: 05-02-2023 End: 05-02-[address] Moni Velásquez Work Phone: [facility]-Cardiovascular Services Work Phone: Start: 05-01-2023 End: 05-01-[address] Moni Velásquez Work Phone: [facility] Internal [facility] Work Phone: Start: 04-30-2023 End: 04-30-[address] Moni Velásquez Work Phone: [facility] Work Phone: Start: 04-30-2023 End: 04-30-[address] Moni Velásquez Work Phone: [facility]-Laboratory Work Phone: Start: 04-25-2023 End: 04-25-2023 ambulatory MONI VELÁSQUEZ Facility:[facility] Start: 04-25-2023 End: 04-25-2023 ambulatory Aric Guerrier MD Work Phone: Hematology/Oncology Comment on above: 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) (Primary Dx) Start: 04-25-2023 End: 04-25-2023 Patient encounter procedure Aric Guerrier MD Work Phone: [facility] Start: 04-17-2023 End: 04-17-[address] Moni Velásquez Work Phone: [facility] Work Phone: Start: 04-09-2023 Non-patient / Non-visit Dr. Moni Velásquez Work Phone: [facility] Work Phone: Start: 04-08-2023 Non-patient / Non-visit Dr. Moni Velásquez Work Phone: [facility] Work Phone: Start: 04-07-2023 Non-patient / Non-visit Dr. Moni Velásquez Work Phone: [facility] Start: 04-06-2023 Non-patient / Non-visit Dr. Moni Velásquez Work Phone: [facility] Work Phone: Start: 04-06-2023 End: 04-09-2023 Evaluation and management of inpatient Dr. Moni Velásquez Work Phone: [facility]-Progressive Care Unit Work Phone: Start: 04-03-2023 End: 04-03-[address] Moni Velásquez Work Phone: [facility] Work Phone: Start: 04-03-2023 End: 04-03-[address] Moni Velásquez Work Phone: [facility]-Radiology, [facility] Work Phone: Start: 04-02-2023 End: 04-02-2023 ambulatory KIRAN GIFFORD Facility:[facility] Start: 03-12-2023 End: 03-12-2023 ambulatory KIRAN GIFFORD Facility:[facility] Start: 03-05-2023 End: 03-05-2023 ambulatory KIRAN GIFFORD Facility:[facility] Start: 03-05-2023 End: 03-05-2023 Patient encounter procedure Kiran Gifford MD Work Phone: Ophthalmology Comment on above: Status post corneal transplant (Primary Dx) Start: 03-01-2023 Patient encounter procedure Kiran Gifford MD Work Phone: [facility] Comment on above: Status post corneal transplant (Primary Dx) Start: 02-19-[address] Moni Velásquez Work Phone: [facility] Start: 02-19-2023 End: 02-19-2023 Emergency department patient visit Dr. Moni Velásquez Work Phone: [facility] Start: 02-19-2023 End: 02-19-2023 Encounter for general adult medical examination without abnormal findings Dr. Moni Velásquez Work Phone: [facility] Start: 02-19-2023 End: 02-19-[address] Moni Velásquez Work Phone: [facility] Internal [facility] Work Phone: Start: 02-17-2023 End: 02-17-[address] Moni Velásquez Work Phone: [facility] Work Phone: Start: 02-17-2023 End: 02-17-[address] Moni Velásquez Work Phone: [facility] Work Phone: Start: 01-29-2023 End: 01-29-2023 ambulatory MONI VELÁSQUEZ Facility:[facility] Start: 01-22-2023 End: 01-22-2023 ambulatory KIRAN GIFFORD Facility:[facility] Start: 01-22-2023 End: 01-22-2023 Patient encounter procedure Kiran Gifford MD Work Phone: Ophthalmology Comment on above: Corneal edema, secon barby, right (Primary Dx); Corneal scar, right eye; Pseudophakia Start: 01-16-2023 Telephone encounter Kiran beth MD Work Phone: [facility] [place] Comment on above: Patient Question Start: 01-01-2023 End: 01-01-2023 ambulatory KIRAN GIFFORD Facility:[facility] Start: 01-01-2023 End: 01-01-2023 Patient encounter procedure Kiran Gifford MD Work Phone: Ophthalmology Comment on above: Corneal edema, secon barby, right (Primary Dx); Corneal scar, right eye; Pseudophakia Start: 12-27-2022 Telephone encounter Kiran beth MD Work Phone: Ophthalmology Start: 12-18-2022 End: 12-18-[address] Moni Velásquez Work Phone: [facility]-Outpatient Breast Imaging Work Phone: Start: 12-11-2022 End: 12-11-2022 ambulatory MONI VELÁSQUEZ Facility:[facility] Start: 12-04-2022 End: 12-04-2022 ambulatory MONI VELÁSQUEZ Facility:[facility] Start: 12-02-2022 Non-patient / Non-visit Dr. Moni Velásquez Work Phone: [facility] Start: 12-02-2022 End: 12-02-[address] Moni Velásquez Work Phone: [facility] Work Phone: Start: 12-02-2022 End: 12-02-[address] Moni Velásquez Work Phone: [facility]-Pulmonary Services/Neurology Work Phone: Start: 11-26-2022 End: 11-26-[address] Moni Velásquez Work Phone: [facility] Work Phone: Start: 11-26-2022 End: 11-26-[address] Moni Velásquez Work Phone: [facility] Work Phone: Start: 11-22-2022 Telephone encounter Kiran beth MD Work Phone: Ophthalmology Comment on above: Appointment Start: 11-20-2022 End: 11-20-[address] Moni Velásquez Work Phone: [facility] Work Phone: Start: 11-13-2022 End: 11-13-[address] Moni Velásquez Work Phone: [facility] Internal Medicine Work Phone: Start: 09-18-2022 End: 09-18-2022 Patient encounter procedure Dr. Moni Velásquez Work Phone: [facility] Work Phone: Start: 08-29-2022 End: 08-29-[address] Moni Velásquez Work Phone: [facility] Work Phone: Start: 08-29-2022 End: 08-29-[address] Moni Velásquez Work Phone: [facility] Start: 08-07-2022 End: 08-07-[address] Moni Velásquez Work Phone: [facility] Work Phone: Start: 08-07-2022 End: 08-07-[address] Moni Velásquez Work Phone: [facility] Start: 07-31-2022 End: 07-31-[address] Moni Velásquez Work Phone: [facility] Start: 07-18-2022 End: 07-18-[address] Moni Velásquez Work Phone: [facility] Start: 07-04-2022 End: 07-04-[address] Moni Velásquez Work Phone: [facility] Start: 06-05-2022 End: 06-05-2022 ambulatory [facility] Work Phone: Start: 06-05-2022 End: 06-05-2022 Patient encounter procedure [facility] Start: 06-03-2022 End: 06-03-2022 ambulatory [facility] Work Phone: Start: 06-03-2022 End: 06-03-2022 Patient encounter procedure [facility] Start: 03-15-2022 End: 03-15-[address] Moni Velásquez Work Phone: [facility] Work Phone: Start: 03-15-2022 End: 03-15-[address] Moni Velásquez Work Phone: [facility] Start: 03-12-2022 End: 03-12-[address] Moni Velásquez Work Phone: [facility] Work Phone: Start: 03-12-2022 End: 03-12-[address] Moni Velásquez Work Phone: [facility] Start: 2022 End: [address] Moni Velásquez Work Phone: [facility] Work Phone: Start: 2022 End: [address] Moni Velásquez Work Phone: [facility] Start: 12-27-2021 End: 12-27-[address] Mnoi Velásquez Work Phone: [facility] Start: 11-30-2021 End: 11-30-2021 ambulatory [facility] Work Phone: Start: 11-30-2021 End: 11-30-2021 Patient encounter procedure [facility] Start: 10-02-2021 End: 10-02-[address] Moni Velásquez Work Phone: [facility] Start: 10-01-2021 End: 10-01-[address] Moni Velásquez Work Phone: [facility] Start: 07-11-2021 End: 07-11-[address] Moni Velásquez Work Phone: [facility] Start: 07-04-2021 End: 07-04-[address] Moni Velásquez Work Phone: [facility]-Pulmonary Services/Neurology Start: 07-04-2021 Non-patient / Non-visit Dr. Moni Velásquez Work Phone: [facility] Start: 07-02-2021 End: 07-02-[address] Moni Velásquez Work Phone: [facility] Start: 06-27-2021 End: 06-27-[address] Moni Velásquez Work Phone: [facility] Start: 06-22-2021 End: 06-22-[address] Moni Velásquez Work Phone: [facility] Start: 06-20-2021 End: 06-20-[address] Moni Velásquez Work Phone: [facility]-Outpatient Bone Densitometry Start: 04-11-2021 End: 04-11-[address] Moni Velásquez Work Phone: [facility] Start: 03-29-2021 End: 03-29-2021 Encounter for general adult medical examination without abnormal findings Dr. Moni Velásquez Work Phone: [facility] Start: 03-29-2021 End: 03-29-[address] Moni Velásquez Work Phone: [facility] Start: 01-31-[address] Moni Velásquez Work Phone: [facility] Start: 03-14-2017 Ambulatory Lucy Santos Facilit y:[facility] Start: 03-14-2017 Ambulatory Lucy LLatia Gardinerh Facilit y:[facility] Start: 11-20-2016 Ambulatory Lucy L. Santos Facilit y:[facility] Start: 09-19-2016 Ambulatory Lucy L. Santos Facilit y:[facility] Procedures Date Procedure Procedure Detail Performing Clinician Start: 06-10-2024 Screening mammography Heather Velásquez MD Work Phone: Start: 06-10-2024 Dual energy X-ray absorptiometry Dr. Moni Velásquez MD Work Phone: Start: 04-26-[address] Moni Velásquez MD Work Phone: Start: 04-23-2024 Measurement of renal function Dr. Moni Velásquez MD Work Phone: Comment on above: GFR Calc Start: 05-28-2023 Computerized ophthal clay imaging retina Kiran Gifford MD Work Phone: Start: 05-09-2023 CT of abdomen with contrast Dr. Moni Velásquez Work Phone: Start: 05-02-2023 Cardiovascular stres s test using pharmacologic stress agent Dr. Moni Velásquez Work Phone: Start: 04-06-2023 Bacteria identified in Blood by Culture Dr. Moni Velásquez Work Phone: Start: 04-06-2023 SARS-CoV-2, Influenz a & RSV (PCR) Dr. Moni Velásquez Work Phone: Start: 04-06-2023 CT angiography of ch est with contrast Dr. Moni Velásquez Work Phone: Start: 04-06-2023 Plain chest X-ray Dr. Mary Velásquez Work Phone: Start: 04-03-2023 Plain chest X-ray Dr. Mary Velásquez Work Phone: Start: 01-22-2023 Cmptr ophthalmic dx img ant segmt w/i&r uni/bi Kiran Gifford MD Work Phone: Start: 12-18-2022 Screening mammography Heather Velásquez Work Phone: Start: 03-15-2022 Plain x-ray of pelvi s and lower extremity Dr. Moni Velásquez Work Phone: Start: 07-02-2021 Pelvis X-ray Dr. Maurizio Velásquez Work Phone: Start: 06-20-2021 Dual energy X-ray absorptiometry Dr. Moni Velásquez Work Phone: Start: 05-17-2019 Colonoscopy Kiran forte [...] Detail Author Start: 10-09-2027 Urine microalbumin profile [facility] Start: 04-25-2024 BP Controlled (<130/80) BP Controlled (<130/80) [facility] Start: 05-12-2023 Catecholamines, fractionation measurement, urine [facility] Start: 04-17-2023 Patient referral [facility] Work Phone: Start: 04-10-2023 Blood chemistry [facility] Start: 04-09-2023 Patient discharge [facility] Start: 04-09-2023 [facility] Start: 04-09-2023 Blood chemistry [facility] Start: 04-08-2023 [facility] Start: 04-08-2023 Incentive spirometry [facility] Start: 04-06-2023 Bacteria identified in Blood by Culture Blood Culture [facility] Start: 04-06-2023 Oxygen therapy [facility] Start: 04-06-2023 Following clinical pathway protocol [facility] Start: 04-06-2023 Ambulation without limitation [facility] Start: 04-06-2023 Assessment of risk of venous thromboembolism [facility] Start: 04-06-2023 Insertion of catheter into peripheral vein [facility] Start: 04-06-2023 Measuring intake and output [facility] Start: 04-06-2023 Providing care according to standard [facility] Start: 04-06-2023 [facility] Start: 04-06-2023 Hospital admission, emergency, from emergency room, medical nature [facility] Start: 04-06-2023 Verification routine [facility] Start: 04-06-2023 Admission procedure [facility] Start: 04-06-2023 End: 04-06-2023 [facility] Start: 04-06-2023 Blood culture [facility] Start: 03-17-2023 Advance Directive Discussion Advance Directive Discussion [facility] Start: 03-17-2023 Depression Assessment Depression Assessment [facility] Start: 11-15-2022 Covid-19 Vaccine () Covid-19 Vaccine () [facility] Start: 11-15-2022 Influenza vaccination [facility] Start: 10-08-2022 Lipid 1996 panel - Serum or Plasma Lipid Screening [facility] Start: 10-08-2022 Lipid panel Lipid Screening [facility] Start: 10-08-2022 LIPID SCREEN LIPID SCREEN [facility] Start: 03-17-2022 ADVANCE DIRECTIVE DISCUSSION ADVANCE DIRECTIVE DISCUSSION [facility] Start: 03-17-2022 DEPRESSION ASSESSMENT DEPRESSION ASSESSMENT [facility] Start: 01-31-2022 Pneumococcal Vaccine: 65+ (2 - PPSV23 or PCV20) Pneumococcal Vaccine: 65+ (2 - PPSV23 or PCV20) [facility] Start: 03-31-2021 DIABETES SCREEN DIABETES SCREEN [facility] Start: 03-31-2021 Diabetes Screening Diabetes Screening [facility] Start: 03-29-2021 Patient referral [facility] Work Phone: Start: 03-28-2021 Pneumococcal Vaccine: 65+ (2 of 2 - PPSV23 or PCV20) Pneumococcal Vaccine: 65+ (2 of 2 - PPSV23 or PCV20) [facility] Start: 05-16-2020 Colonoscopy Colonoscopy [facility] Start: 05-16-2020 Colorectal Cancer Screening Colorectal Cancer Screening [facility] Start: 05-16-2020 Screening for malignant neoplasm of colon [facility] Start: 01-29-2020 BONE DENSITY BONE DENSITY [facility] Start: 01-29-2020 Bone Density Screening Bone Density Screening [facility] Start: 01-29-2020 Pneumococcal Vaccine: 65+ (1 - PCV) Pneumococcal Vaccine: 65+ (1 - PCV) [facility] Start: 01-29-2020 PNEUMOCOCCAL: 65+ (1 - PCV) PNEUMOCOCCAL: 65+ (1 - PCV) [facility] Start: 01-29-2020 Screening for osteoporosis Bone Density Screening [facility] Start: 10-06-2019 Annual PCP Team Chronic Disease Visit Annual PCP Team Chronic Disease Visit [facility] Start: 10-08-2018 BP Controlled (<130/80) BP Controlled (<130/80) [facility] Start: 06-26-2018 Mammography [facility] Start: 06-26-2018 Screening for malignant neoplasm of breast Mammogram Screening [facility] Start: 2015 RSV Vaccine (1 - 1-dose 60+ series) RSV Vaccine (1 - 1-dose 60+ series) [facility] Start: 2005 SHINGRIX VACCINE (1 of 2) SHINGRIX VACCINE (1 of 2) [facility] Start: 01-29-2000 COLOGUARD (FIT-DNA) COLOGUARD (FIT-DNA) [facility] Start: 01-29-2000 Colonoscopy COLONOSCOPY [facility] Start: 01-29-2000 COLORECTAL CANCER SCREENING COLORECTAL CANCER SCREENING [facility] Start: 01-29-[address] COLONOGRAPHY [facility] Start: 01-29-2000 FECAL OCCULT BLOOD FECAL OCCULT BLOOD [facility] Start: 01-29-2000 Screening for malignant neoplasm of colon [facility] Start: 01-29-2000 SIGMOIDOSCOPY SIGMOIDOSCOPY [facility] Start: 1974 Shingrix Vaccine (1 of 2) Shingrix Vaccine (1 of 2) [facility] Start: 1955 COVID-19 VACCINE (#1) COVID-19 VACCINE (#1) [facility] 24 hour urine dopami ne output measurement [facility] Anion gap measurement [facility] Anion gap measurement [facility] BUN/Creatinine ratio [facility] BUN/Creatinine ratio [facility] Calcium [Mass/volume ] in Serum or Plasma [facility] Calcium [Mass/volume ] in Serum or Plasma [facility] Carbon dioxide, tota l [Moles/volume] in Serum or Plasma [facility] Carbon dioxide, tota l [Moles/volume] in Serum or Plasma [facility] Catecholamines, fractionation measurement, urine [facility] Chloride [Moles/volu me] in Serum or Plasma [facility] Chloride [Moles/volu me] in Serum or Plasma [facility] Cortisol Free [Mass/volume] in 24 hour Urine [facility] Cortisol Free [Mass/volume] in Urine [facility] Creatinine [Moles/vo lume] in Serum or Plasma [facility] Creatinine [Moles/vo lume] in Serum or Plasma [facility] CT Abdomen WO and W contrast IV [facility] DOPamine [Mass/volum e] in Urine [facility] EPINEPHrine [Mass/ti me] in 24 hour Urine [facility] EPINEPHrine [Mass/vo lume] in Urine [facility] Erythrocyte mean corpuscular volume determination [facility] Erythrocyte mean corpuscular volume determination [facility] Glucose [Mass/volume ] in Serum or Plasma [facility] Glucose [Mass/volume ] in Serum or Plasma [facility] Hematocrit [Volume Fraction] of Blood [facility] Hematocrit [Volume Fraction] of Blood [facility] Hemoglobin [Mass/vol ume] in Blood [facility] Hemoglobin [Mass/vol ume] in Blood [facility] Leukocytes [#/volume ] in Blood [facility] Leukocytes [#/volume ] in Blood [facility] Lipid 1996 panel - S michael or Plasma [facility] Mean corpuscular hemoglobin concentration determination [facility] Mean corpuscular hemoglobin concentration determination [facility] Mean corpuscular hemoglobin determination [facility] Mean corpuscular hemoglobin determination [facility] Measurement of renal function [facility] Measurement of renal function [facility] MG Breast - bilatera l Screening [facility] Neutrophil count [facility] Neutrophil count [facility] Neutrophil percent differential count [facility] Neutrophil percent differential count [facility] NM Heart Views W str ess and W radionuclide IV [facility] Norepinephrine [Mass/volume] in Urine [facility] Norepinephrine measurement [facility] Patient referral [facility] Work Phone: Platelets [#/volume] in Blood [facility] Platelets [#/volume] in Blood [facility] Potassium [Moles/vol ume] in Serum or Plasma [facility] Potassium [Moles/vol ume] in Serum or Plasma [facility] Red blood cell count [facility] Red blood cell count [facility] Red cell distributio n width determination [facility] Red cell distributio n width determination [facility] Sodium [Moles/volume ] in Serum or Plasma [facility] Sodium [Moles/volume ] in Serum or Plasma [facility] Urea nitrogen [Mass/volume] in Serum or Plasma [facility] Urea nitrogen [Mass/volume] in Serum or Plasma [facility] Immunizations Immunization Date Immunization Notes Care Provider Fa bethany 02-19-2024 Covid (Spikevax) Dr. Lowell Velásquez MD Work Phone: [facility] 02-18-2024 Seasonal trivalent influenza vaccine, adjuvanted, preservative free Dr. Moni Velásquez MD Work Phone: [facility] 02-19-2023 influenza, injectabl e, quadrivalent, preservative free Dr. Moni Velásquez Work Phone: [facility] 03-19-2021 Covid (Pfizer) Dr. Moni Velásquez MD Work Phone: [facility] 01-31-2021 pneumococcal conjuga te vaccine, [address] Moni Velásquez Work Phone: [facility] 01-31-2021 pneumococcal vaccine , unspecified formulation Dr. Moni Velásquez Work Phone: [facility] Work Phone: 06-08-2020 Covid (Pfizer) Dr. Moni Velásquez Work Phone: [facility] 05-18-2020 Covid (Pfizer) Dr. Moni Velásquez Work Phone: [facility] 04-07-2018 influenza virus vaccine, unspecified formulation Kiran Gifford MD Work Phone: [facility] 05-17-2013 tetanus toxoid, redu sriram diphtheria toxoid, and acellular pertussis vaccine, adsorbed Dr. Moni Velásquez MD Work Phone: [facility] 05-13-2002 hepatitis B vaccine, adult dosage Dr. Moni Velásquez MD Work Phone: [facility] 12-10-2001 hepatitis B vaccine, adult dosage Dr. Moni Velásquez MD Work Phone: [facility] 11-05-2001 hepatitis B vaccine, adult dosage Dr. Moni Velásquez MD Work Phone: [facility] 08-04-2001 hepatitis A vaccine, pediatric/adolescent dosage, [address] Moni Velásquez MD Work Phone: [facility] 11-26-2000 hepatitis A vaccine, pediatric/adolescent dosage, [address] Moni Velásquez MD Work Phone: [facility] Payers Date Payer Category Payer Self-pay [id number] 2020 Medicare [employer]NA MEDICARE [employer] MEDICARE PPO [id number] 2020-Present [id number] [place] [address] PPO [id number] 2020 Medicare [id number] 2015 Unknown [id number] Medicare [id number] Unknown [id number] Unknown [id number] Unknown [id number] Unknown [id number] Unknown [id number] Unknown [id number] Unknown [id number] Unknown [id number] Unknown [id number] Unknown [id number] Unknown [id number] [id number] Unknown [id number] Unknown [id number] [id number] Unknown [id number] Unknown [id number] Unknown [id number] [id number] Unknown [id number] [id number] Unknown [id number] Unknown [id number] [id number] Unknown [id number] Social History Date Type Detail Facility Start: 06-22-2021 End: 05-08-2023 Tobacco smoking status NHIS Unknown if ever smoked [facility] Start: 12-28-2019 None [facility] Start: 12-28-2019 Spouse/ Signif icant Other [facility] Start: 05-12-2019 Non-smoker [facility] Start: 1955 Sex Assigned At Female [facility] Start: 06-06-2017 End: 01-10-2024 Tobacco smoking status NHIS Never smoked tobacco [facility] Start: 06-06-2017 End: 12-04-2022 Tobacco use and exposure Smokeless tobacco non-user [facility] Start: 10-05-2018 End: 05-28-2023 Alcohol intake Current non-drinker of alcohol (finding) [facility] Start: 10-05-2018 End: 01-29-2023 History of Social function [facility] Start: 10-05-2018 End: 01-29-2023 Tobacco use panel [facility] Adult Depression Screening Assessment 0 [facility] Start: 1955 Sex Assigned At Not on file [facility] Start: 06-15-2024 Sex Female (finding) [facility] Medical Equipment Procedure Code Equipment Code Equipment Origin al Text Equipment Identifier Dates Cornea Tissue Pre-Loaded [id number] - [id number] Start: 02-28-2023 Gas Ispan [employer] Intraocular Vision System [id number] - [id number] Start: 02-28-2023 Goals Date Patient Goal Desired Activity /State Functional Status Date Assessment Result Facility 04-09-2023 Functional status Chair [facility] Work Phone: 04-08-2023 Functional status Chair [facility] Work Phone: Mental Status Date Assessment Result Facility 04-09-2023 Cognitive function Voice/Name [facility] Work Phone: 04-08-2023 Cognitive function Voice/Name [facility] Work Phone: Clinical Notes 11-22-2022 to 05-19-2024 Note Date & Type Note Facility 05-19-2024 Evaluation note Diagnosis Onset Date Resolution Asthma chronic May 19 9:31am CKD (chronic kidney disease), stage III chronic May 19, 025 9:31am Dyslipidemia chronic May 19 025 9:31am Essential hypertension chronic [facility] 2024 9:31am Upper back pain on right side chronic May 19, 2024 9:31am [facility] Work Phone: 1(149) 810-936912-04-2024 Evaluation note* Diagnosis Onset Date Resolution Status Admit Date Flu vaccine need acute February 18, 2024 9:42am Asthma chronic February 18, 2024 9:42am Essential hypertension chronic De cem2023 9:42am Lumbar radiculopathy chronic Dece mb 2023 9:42am Paroxysmal cough chronic February 18, 2024 9:42am Asthma chronic May 19 9:31am CKD (chronic kidney disease) , stage III chronic May 19, 2024 9:31am Dyslipidemia chronic May 19 025 9:31am Essential hypertension chronic [facility] 2024 9:31am Upper back pain on right side chroni c May 19, 2024 9:31am [facility] Work Phone: 1(110) 510-924003-13-2024 NoteHNO ID: [id number] Author: KIRAN GIFFORD MD Service: ? Author [...] all of its relevant components. Kiran Gifford, [facility]03-13-2024 History of Present illness Narrative* Kiran Gifford MD - 05/28/2023 11:21 AM EDT Assessment and Plan 1. Corneal edema, [...] components. [facility]ord [facility] NoteHNO ID: [id number] Author: ARIC GUERRIER MD Service: ? Author Type: Physician Type: [...] total of 45 minute (more content not included)...[facility]02-09-2024 History of Present illness Narrative* Aric Guerrier MD - 04/25/2023 10:39 AM EST HISTORY OF PRESENT ILLNESS: Anh Ewing is [...] mouth once daily. (Patient not taking: Reported on04/25/2023) Ciclopirox (LOPROX) 8 % solution Apply 1 [...] which included preparing to see the patient, [id number] patient care, completing clinical documentation, obtaining and/or reviewing separately obtained history, counseling and educating the patient/family/caregiver, communicating with other HCPs (not separately reported), independently interpreting results (not separately reported), and communicating results to the patient/family/caregiver. ' Electronically Signed: Aric Guerrier MD April 25, 2023 10:39 AM [facility] Discharge summary Author Rickie Hale [facility] April 09, 2023 10:12am Note Date/Time April 09, 2023 8 :53am [facility] Medical Records Department [address] [place] [address] Discharge Summary 04/09/23 0853 MR#: [id number] Acct: [id number] Name: ANH EWING Rep #:[id number] : [id number] From: Rickie Hale MD PCP: Dr. Moni Velásquez MD Status:A DM IN Location: [place] [address] Providers Date of Admission: 04/06/23 Date of Discharge: 04/09/23 Primary Care Physician: Dr. Moni Velásquez MD Reason For Visit: SADDLE PE Diagnosis Discharge Diagnosis (1) Pulmonary emboli: Status: Acute Code(s): I26.99 - Other pulmonary embolism without acute cor pulmonale Plan Patient is a 68-year-old lady admitted with progressive shortness of breath. CTA obtained demonstrated extensive bilateral pulmonary embolism with saddle embolus component, right lower lobe with small parapneumonic effusion. Admittedto a monitored bed for further management 1. 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 Patient admitted to a monitored bed started on systemic anticoagulation with heparin. Given the extent of clot and with this being unprovoked patient will need to be on systemic anticoagulation indefinitely. Also did discuss with patient further need to undergo age-related cancer screening to be organized by her primary care physician ? 04/08/2023; patient switched from heparin to apixaban ? 04/09/2023;Patient seen and reports significant improvement in her right-sided pleuritic chest pain. Patient to be assessed for possible discharge with a 6- minute walk 2. Acute cor pulmonale secondary to pulmonary embolism ? On CAT scan ordered 2D echo for subsequent evaluation ? 04/08/2023; 2D echo demonstrated pulmonary arterial pressure 48 mmHg 3. Right lower lobe pneumonia ? Most likely pulmonary infarct with superimposed bacterial infection. Patient started on systemic anticoagulation with Levaquin 4. Hypertension - Blood pressure controlled, home medications continued with dose adjustment as needed 5. Dyslipidemia -Patient is on statin as well as fibrate therapy, continued at home dose 6. Rheumatoid arthritis ? Patient is on leflunomide 7./3 obesity with BMI of 47 ? Complicating care weight loss advised 8. Corneal transplant ? She had this done in February so she is to remain on her eyedrops in the righteye 3 times a day 9. Right-sided pleuritic pain ? Patient started on pain regimen in addition to incentive spirometry Time spent in the patient's overall evaluation,decision-making process, review of diagnostic data, adjustment of management, discussion with other providers, nursing nursing and ancillary staff involved in patient's care documentation, 35minutes Medications at Discharge Home Medications betamethasone dipropionate 0.05 % topical cream 1 applic topical DAILY PRN skin 04/12/19 Handicap Placard #1 ea 12/20/19 calcium carbonate 500 mg calcium (1,250 mg) tablet 500 mg PO DAILY 12/28/19 cholecalciferol (vitamin D3) 25 mcg (1,000 unit) tablet 1,000 unit PO DAILY 12/28/19 acetaminophen 325 mg capsule (Tylenol) 325 mg PO ONCE PRN fever or pain 01/28/20 vibegron 75 mg tablet (Gemtesa) 75 mg PO DAILY 01/31/21 simvastatin 20 mg tablet 20 mg PO QHS #90 tabs 06/14/22 hydrochlorothiazide 25 mg tablet 25 mg PO DAILY #90 tabs 09/18/22 atenolol 50 mg tablet 50 mg PO DAILY #90 tabs 10/21/22 valsartan 320 mg tablet 320 mg PO DAILY #90 tabs 11/13/22 Handicap Placard #1 ea 11/21/22 fenofibrate 54 mg tablet 54 mg PO DAILY #90 tabs 03/18/23 leflunomide 20 mg tablet 20 mg PO DAILY 04/03/23 prednisolone acetate 1 % eye drops,suspension 1 drp ophthalmic (eye) TID 04/03/23 apixaban 5 mg (74 tabs) tablets in a dose pack (Eliquis DVT-PE Treat 30D Start) 5 mg PO BID #74 tabs 04/09/23 oxycodone 5 mg tablet 5 mg PO Q4H PRN PRN Pain Score 4-10 5 days #20 tabs 04/09/23 Hospital Course Summary of Care Provided Minutes Spent on Discharge: 35 Physical Exam Narrative GENERAL: cooperative HEENT: Atraumatic; normocephalic EYES; Anicteric, Normal Conjunctiva NECK; supple, normal thyroid, RESPIRATORY: Diminished to auscultation CARDIOVASCULAR: Regular S1 S2, GI: soft, normoactive bowel sounds, : No Renal angle tenderness; EXTREMITIES: No edema, no clubbing, MUSCULOSKELETAL: no muscle wasting NEURO: Awake; no lateralizing signs. SKIN: No Rash PSYCH; Flat affect Weight / BMI Weight Weight: 123.9 kg Body Mass Index (BMI) 46.8 ABG / Lab / Microbiology Data 04/09/23 07:45 04/09/23 07:45 Laboratory: Laboratory Results - last 24 hr 04/06/23 09:47: Diff Path Review Reviewed 04/07/23 06:42: Diff Path Review Reviewed 04/09/23 07:45: WBC 11.3 H, RBC 3.71 L, Hgb 10.2 L, Hct 32.4 L, MCV 87.3, MCH 27.5, MCHC 31.5 L, RDW Std Deviation 48.3 H, RDW Coeff of Liss 15.0 H, Plt Count 273, MPV 9.0, Immature Gran % (Auto) 1.100 H, Neut % (Auto) 69.4, Lymph % (Auto)18.2 L, [place] % (Auto) 10.4 H, Eos % (Auto) 0.6, Baso % (Auto) 0.3, Absolute Neuts (auto) 7.9 H, Absolute Lymphs (auto) 2.06, Nucleated RBC % 0, Sodium 136, Potassium 3.5, Chloride 104, Carbon Dioxide 27.0, Anion Gap 5, BUN 35 H, Creatinine 1.25 H, Estim Creat Clear Calc 56.02, Est GFR (MDRD) Af Amer 55 L, Est GFR (MDRD) Non-Af 45 L, BUN/Creatinine Ratio 28.0 H, Glucose 111 H, Calcium 10.0 Microbiology: Microbiology 04/06/23 10:05 Blood Culture (Wb) - Anticubital Left Blood Culture - Preliminary No growth in 48 hours. 04/06/23 10:00 Mucosa - Nose SARS-CoV-2, Influenza & RSV (PCR) - Final D/C Instructions Discharge Diet: No restrictions Discharge Activity: Return to Normal Activity Call your doctor if you observe: Fever of 101 or Higher, Shortness of breath, Fainting spells and Chest pain Meaningful Use Info Meaningful Use Diagnoses (Choose all that apply): VTE VTE Anticoag overlap given w/in hospital stay or rx'd at dc?: No Pt receive overlap for 5 days?: No Reason overlap not ordered, prescribed, or given for 5 days: Treatment Not Indicated Discharge Plan Admission Admit Date/Time: 04/06/23 11:10 Attending Provider: Rickie Hale Primary Care Provider: Moni Velásquez Consulting Providers: Thor Alfred Discharge Orders/Prescriptions Prescriptions: New oxycodone 5 mg Tablet 5 mg PO Q4H PRN PRN (Reason: Pain Score 4-10) 5 Days Qty: 20 0RF Eliquis DVT-PE Treat 30D Start 5 mg (74 tabs) tablets,dose pack 5 mg PO BID Qty: 74 0RF Rx Instructions: 10 mg p.o. twice daily x 7 days and subsequently 5 mg p.o. twice daily Continued betamethasone dipropionate 0.05 % cream 1 applic TOPICAL DAILY PRN (Reason: skin) (DME) Handicap Placard See Rx Instructions .ROUTE .MEDSUPPLY Qty: 1 0RF Rx Instructions: As directed, length of time 3 years acetaminophen [Tylenol] 325 mg capsule 325 mg PO ONCE PRN (Reason: fever or pain) Gemtesa 75 mg tablet 75 mg PO DAILY hydrochlorothiazide 25 mg tablet 25 mg PO DAILY Qty: 90 3RF Hold Instructions: Eye issues: see clinical notes valsartan 320 mg tablet 320 mg PO DAILY Qty: 90 3RF leflunomide 20 mg tablet 20 mg PO DAILY prednisolone acetate 1 % drops,suspension 1 drp ophthalmic (eye) TID Rx Instructions: right eye calcium carbonate 500 MG tablet 500 mg PO DAILY cholecalciferol (vitamin D3) 1,000 UNIT tablet 1,000 unit PO DAILY simvastatin 20 mg tablet 20 mg PO QHS Qty: 90 3RF atenolol 50 mg tablet 50 mg PO DAILY Qty: 90 3RF (DME) Handicap Placard See Rx Instructions .ROUTE .MEDSUPPLY Qty: 1 0RF Rx Instructions: As directed, length of time 3 years fenofibrate 54 mg tablet 54 mg PO DAILY Qty: 90 1RF Discontinued tramadol 50 mg tablet 50 mg PO Q6H PRN (Reason: pain) Referrals / Follow Up: Moni Velásquez MD [Primary Care Provider] - Within 1 Week Disposition Disposition (needs filled in before D/C Order can be placed): Home, Self Care Charges/Coding Visit Charges Inpatient E&M: 45450 Disch Hosp >30min 04/09/23 0903 <Electronically signed by Rickie Hale MD> Cosigner Signature (if applicable): CC: Dr. Rickie Hale MD; Dr. Moni Velásquez MD~ Signed ADDENDUM by Dr. Rickie Hale MD on 04/09/23 at 1012 Addendum Patient was assessed for home oxygen which she did qualify she will need portability at home since patient is both ambulatory at home and in the community 04/09/23 1012<Electronically signed by Rickie Hale MD> Cosigner Signature (if applicable): cc: Dr. Rickie Hale MD; Dr. Moni Velásquez MD ~* Signed [facility] Work Phone: 1(713) 497-177601-24-2024 Consult note Author Georgina Vasquez [facility] April 09, 2023 9:57am Note Date/Time April 09, 2023 9 :55am [facility] Medical Records Department [address] [place] [address] Counseling Note - Pharmacy 04/09/23 0952 MR#: [id number] Acct: [id number] Name: ANH EWING Rep #:[id number] : 1955 68 From: Georgina Vasquez PCP: Dr. Moni Velásquez MD Status:A DM IN Y Location: [place] [address] Pharmacy [facility] has performed discharge medication reconciliation and counseling for this patient. Patient would like to have medications delivered. RN CM will request delivery when she calls for [employer]. 1. APIXABAN 10MG PO BID X 7 DAYS, THEN 5MG PO BID 2. OXYCODONE 5MG PO Q4H PRN PAIN 4-10 The patient's discharge medication list was reviewed for discrepancies and discrepancies were resolved. The patient was counseled on the following discharge medications and changes in medications for homegoing were reviewed. The Reason for Use, instructions for use, and potential side effects were reviewed for all new medications. The patient's questions regarding all of their medications were answered. The patient was able to verbally demonstrate an understanding of their dischargemedications. Medications at Discharge Home Medications betamethasone dipropionate 0.05 % topical cream 1 applic topical DAILY PRN skin 04/12/19 Handicap Placard #1 ea 12/20/19 calcium carbonate 500 mg calcium (1,250 mg) tablet 500 mg PO DAILY 12/28/19 cholecalciferol (vitamin D3) 25 mcg (1,000 unit) tablet 1,000 unit PO DAILY 12/28/19 acetaminophen 325 mg capsule (Tylenol) 325 mg PO ONCE PRN fever or pain 01/28/20 vibegron 75 mg tablet (Gemtesa) 75 mg PO DAILY 01/31/21 simvastatin 20 mg tablet 20 mg PO QHS #90 tabs 06/14/22 hydrochlorothiazide 25 mg tablet 25 mg PO DAILY #90 tabs 09/18/22 atenolol 50 mg tablet 50 mg PO DAILY #90 tabs 10/21/22 valsartan 320 mg tablet 320 mg PO DAILY #90 tabs 11/13/22 Handicap Placard #1 ea 11/21/22 fenofibrate 54 mg tablet 54 mg PO DAILY #90 tabs 03/18/23 leflunomide 20 mg tablet 20 mg PO DAILY 04/03/23 prednisolone acetate 1 % eye drops,suspension 1 drp ophthalmic (eye) TID 04/03/23 apixaban 5 mg (74 tabs) tablets in a dose pack (Eliquis DVT-PE Treat 30D Start) 5 mg PO BID #74 tabs 04/09/23 oxycodone 5 mg tablet 5 mg PO Q4H PRN PRN Pain Score 4-10 5 days #20 tabs 04/09/23 04/09/23 0957 <Electronically signed by Georgina Vasquez> Date _ Georgina Ponceigner Signature (if applicable): Date CC: ~ Signed [facility] Work Phone: 1(236) 218-624401-24-2024 Progress note Author Rickie Hale [facility] April 09, 2023 8:52am Note Date/Time April 09, 2023 8 :16am [facility] Medical Records Department [address] [place] [address] Progress Note - Hospitalist 04/09/23 0816 MR#: [id number] Acct: [id number] Name: ANH EWING Rep #:[id number] : 1955 68 From: Rickie Hale MD PCP: Dr. Moni Velásquez MD Status:A DM IN Location: [place] [address] Reason for Visit Reason for Visit: Diagnoses Other pulmonary embolism without acute cor pulmonale (04/06/23) Subjective Subjective Patient seen and reports significant improvement in her right-sided pleuritic chest pain. Patient to be assessed for possible discharge with a 6-minute walk Objective Data Objective Data Vital Signs: Vital Signs Temp Pulse Resp BP Pulse Ox O2 Del Method O2 Flow Rate 97.8 F 73 16 149/84 H 93 Room Air 2 04/09/23 05:30 04/09/23 05:30 04/09/23 05:30 04/09/23 05:30 04/09/23 05:30 04/09/23 05:30 04/08/23 03:00 FiO2 98 04/06/23 09:52 Oxygen Flow Rate (L/min) 2 Oxygen Delivery Method Room Air Weight: 123.9 kg Body Mass Index (BMI) 46.8 Intake & Output: Intake and Output for Last 24 Hours 04/07/23 04/08/23 04/09/23 23:59 23:59 23:59 Intake Total 632.80 / 832.80 403.43 / 503.43 120 / 120 Output Total 200 / 200 0 / 0 200 / 200 Balance 432.80 / 632.80 403.43 / 503.43 -80 / -80 Lab / Micro Data 04/09/23 07:45 04/09/23 07:45 Labs: Laboratory Results - last 24 hr 04/06/23 09:47: Diff Path Review Reviewed 04/07/23 06:42: Diff Path Review Reviewed Micro: Microbiology 04/06/23 10:05 Blood Culture (Wb) - Anticubital Left Blood Culture - Preliminary No growth in 48 hours. 04/06/23 10:00 Mucosa - Nose SARS-CoV-2, Influenza & RSV (PCR) - Final Physical Exam Narrative GENERAL: cooperative HEENT: Atraumatic; normocephalic EYES; Anicteric, Normal Conjunctiva NECK; supple, normal thyroid, RESPIRATORY: Diminished to auscultation CARDIOVASCULAR: Regular S1 S2, GI: soft, normoactive bowel sounds, : No Renal angle tenderness; EXTREMITIES: No edema, no clubbing, MUSCULOSKELETAL: no muscle wasting NEURO: Awake; no lateralizing signs. SKIN: No Rash PSYCH; Flat affect Assessment & Plan Assessment/Plan (1) Pulmonary emboli: PLAN: Plan Patient is a 68-year-old lady admitted with progressive shortness of breath. CTA obtained demonstrated extensive bilateral pulmonary embolism with saddle embolus component, right lower lobe with small parapneumonic effusion. Admittedto a monitored bed for further management 1. 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 Patient admitted to a monitored bed started on systemic anticoagulation with heparin. Given the extent of clot and with this being unprovoked patient will need to be on systemic anticoagulation indefinitely. Also did discuss with patient further need to undergo age-related cancer screening to be organized by her primary care physician ? 04/08/2023; patient switched from heparin to apixaban ? 04/09/2023;Patient seen and reports significant improvement in her right-sided pleuritic chest pain. Patient to be assessed for possible discharge with a 6- minute walk 2. Acute cor pulmonale secondary to pulmonary embolism ? On CAT scan ordered 2D echo for subsequent evaluation ? 04/08/2023; 2D echo demonstrated pulmonary arterial pressure 48 mmHg 3. Right lower lobe pneumonia ? Most likely pulmonary infarct with superimposed bacterial infection. Patient started on systemic anticoagulation with Levaquin 4. Hypertension - Blood pressure controlled, home medications continued with dose adjustment as needed 5. Dyslipidemia -Patient is on statin as well as fibrate therapy, continued at home dose 6. Rheumatoid arthritis ? Patient is on leflunomide 7./3 obesity with BMI of 47 ? Complicating care weight loss advised 8. Corneal transplant ? She had this done in February so she is to remain on her eyedrops in the righteye 3 times a day 9. Right-sided pleuritic pain ? Patient started on pain regimen in addition to incentive spirometry Time spent in the patient's overall evaluation,decision-making process, review of diagnostic data, adjustment of management, discussion with other providers, nursing nursing and ancillary staff involved in patient's care documentation, 35minutes Charges/Coding Visit Charges Inpatient E&M: 98919 Subs Hosp L2 04/09/23 0852 <Electronically signed by Rickie Hale MD> Cosigner Signature (if applicable): CC: ~ Signed [facility] Work Phone: 1(104) 873-367301-23-2024 Progress note Author Rickie Hale [facility] April 08, 2023 11:46am Note Date/Time April 08, 2023 7 :55am [facility] Medical Records Department [address] [place] [address] Progress Note - Hospitalist 04/08/23 0754 MR#: [id number] Acct: [id number] Name: ANH EWING Rep #:[id number] : 1955 68 From: Rickie Hale MD PCP: Dr. Moni Velásquez MD Status:A DM IN Location: [place] [address] Reason for Visit Reason for Visit: Diagnoses Other pulmonary embolism without acute cor pulmonale (04/06/23) Subjective Subjective Patient seen complains of right-sided pleuritic chest pain. Patient is on heparin switched to apixaban with a starting dose of 10 mg p.o. twice daily Objective Data Objective Data Vital Signs: Vital Signs Temp Pulse Resp BP Pulse Ox O2 Del Method O2 Flow Rate 98.2 F 66 16 138/85 H 97 Nasal Cannula 2 04/08/23 03:00 04/08/23 03:00 04/08/23 03:00 04/08/23 03:00 04/08/23 03:00 04/08/23 03:00 04/08/23 03:00 FiO2 98 04/06/23 09:52 Oxygen Flow Rate (L/min) 2 Oxygen Delivery Method Nasal Cannula Weight: 123.9 kg Body Mass Index (BMI) 46.8 Intake & Output: Intake and Output for Last 24 Hours 04/06/23 04/07/23 04/08/23 23:59 23:59 23:59 Intake Total 585.87 / 585.87 632.80 / 832.80 200 / 200 Output Total 200 / 200 0 / 0 Balance 585.87 / 585.87 432.80 / 632.80 200 / 200 Lab / Micro Data 04/08/23 03:47 04/08/23 03:47 Labs: Laboratory Results - last 24 hr 04/07/23 06:42: Diff Path Review July nolberto, Toxic Granulation 1+, APTT 52.3 H 04/07/23 14:07: APTT 46.2 H 04/07/23 20:22: APTT 49.6 H 04/08/23 03:47: WBC 13.5 H, RBC 3.44 L, Hgb 9.8 L, Hct 30.4 L, MCV 88.4, MCH 28.5, MCHC 32.2, RDW Std Deviation 48.2 H, RDW Coeff of Liss 15.0 H, Plt Count 253, MPV 9.5, Immature Gran % (Auto) 0.800, Neut % (Auto) 70.1 H, Lymph % (Auto)16.9 L, [place] % (Auto) 11.7 H, Eos % (Auto) 0.1, Baso % (Auto) 0.4, Absolute Neuts (auto) 9.5 H, Absolute Lymphs (auto) 2.28, Nucleated RBC % 0.1, Differential Comment SCANNED, Diff Path Review July nolberto, APTT 56.0 H, Sodium 137, Potassium 3.5, Chloride 104, Carbon Dioxide 26.0, Anion Gap 7, BUN 40 H, Creatinine 1.21 H, Estim Creat Clear Calc 57.87, Est GFR (MDRD) Af Amer 57 L, Est GFR (MDRD) Non-Af 47 L, BUN/Creatinine Ratio 33.1 H, Glucose 119 H, Calcium 9.6, Phosphorus 2.3 L, Magnesium 1.9 Micro: Microbiology 04/06/23 10:00 Mucosa - Nose SARS-CoV-2, Influenza & RSV (PCR) - Final Radiography Diagnostic Testing: Radiology Impression Echocardiogram 04/07/23 05:55 Interpretation Summary Normal LV size. Left ventricular systolic function is normal. The estimated ejection fraction is 65 %. No regional wall motion abnormalities noted. Stage 1 diastolic dysfunction. Mild to moderate global right ventricular systolic dysfunction. Pulmonary artery systolic pressure is 48 mmHg. D shaped septum in diastole. Ordering Physician: Thor Alfred Referring Physician: Moni Velásquez Performed By: Kristen Leung RDCS Physical Exam Narrative GENERAL: cooperative HEENT: Atraumatic; normocephalic EYES; Anicteric, Normal Conjunctiva NECK; supple, normal thyroid, RESPIRATORY: Diminished to auscultation CARDIOVASCULAR: Regular S1 S2, GI: soft, normoactive bowel sounds, : No Renal angle tenderness; EXTREMITIES: No edema, no clubbing, MUSCULOSKELETAL: no muscle wasting NEURO: Awake; no lateralizing signs. SKIN: No Rash PSYCH; Flat affect Assessment & Plan Assessment/Plan (1) Pulmonary emboli: PLAN: Plan Patient is a 68-year-old lady admitted with progressive shortness of breath. CTA obtained demonstrated extensive bilateral pulmonary embolism with saddle embolus component, right lower lobe with small parapneumonic effusion. Admittedto a monitored bed for further management 1. 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 Patient admitted to a monitored bed started on systemic anticoagulation with heparin. Given the extent of clot and with this being unprovoked patient will need to be on systemic anticoagulation indefinitely. Also did discuss with patient further need to undergo age-related cancer screening to be organized by her primary care physician ? 04/08/2023; patient switched from heparin to apixaban 2. Acute cor pulmonale secondary to pulmonary embolism ? On CAT scan ordered 2D echo for subsequent evaluation ? 04/08/2023; 2D echo demonstrated pulmonary arterial pressure 48 mmHg 3. Right lower lobe pneumonia ? Most likely pulmonary infarct with superimposed bacterial infection. Patient started on systemic anticoagulation with Levaquin 4. Hypertension - Blood pressure controlled, home medications continued with dose adjustment as needed 5. Dyslipidemia -Patient is on statin as well as fibrate therapy, continued at home dose 6. Rheumatoid arthritis ? Patient is on leflunomide 7./3 obesity with BMI of 47 ? Complicating care weight loss advised 8. Corneal transplant ? She had this done in February so she is to remain on her eyedrops in the righteye 3 times a day 9. Right-sided pleuritic pain ? Patient started on pain regimen in addition to incentive spirometry Time spent in the patient's overall evaluation,decision-making process, review of diagnostic data, adjustment of management, discussion with other providers, nursing nursing and ancillary staff involved in patient's care documentation, 50 Minutes Charges/Coding Visit Charges Inpatient E&M: 50866 Subs Hosp L3 04/08/23 1146 <Electronically signed by Rickie Hale MD> Cosigner Signature (if applicable): CC: ~ Signed [facility] Work Phone: 1(474) 549-713601-22-2024 Progress note Author Rickie Hale [facility] April 07, 2023 11:10am Note Date/Time April 07, 2023 1 1:10am [facility] Medical Records Department [address] [place] [address] Progress Note - Hospitalist 04/07/23 1107 MR#: [id number] Acct: [id number] Name: ANH EWING Rep #:[id number] : 1955 68 From: Rickie Hale MD PCP: Dr. Moni Velásquez MD Status:A DM IN Location: [place] [address] Reason for Visit Reason for Visit: Diagnoses Other pulmonary embolism without acute cor pulmonale (04/06/23) Subjective Subjective Patient is a 68-year-old lady admitted with progressive shortness of breath. CTA obtained demonstrated extensive bilateral pulmonary embolism with saddle embolus component, right lower lobe with small parapneumonic effusion. Admittedto a monitored bed for further management Objective Data Objective Data Vital Signs: Vital Signs Temp Pulse Resp BP Pulse Ox O2 Del Method O2 Flow Rate 98.3 F 62 16 129/75 H 92 Room Air 2 04/07/23 08:43 04/07/23 08:43 04/07/23 08:43 04/07/23 08:43 04/07/23 08:46 04/07/23 10:00 04/07/23 08:43 FiO2 98 04/06/23 09:52 Oxygen Flow Rate (L/min) 2 Oxygen Delivery Method Room Air Weight: 123.9 kg Body Mass Index (BMI) 46.8 Intake & Output: Intake and Output for Last 24 Hours 04/05/23 04/06/23 04/07/23 23:59 23:59 23:59 Intake Total 585.87 / 585.87 433.43 / 433.43 Output Total 200 / 200 Balance 585.87 / 585.87 233.43 / 233.43 Lab / Micro Data 04/07/23 06:42 04/07/23 06:42 Labs: Laboratory Results - last 24 hr 04/06/23 17:02: APTT 100.0 H* 04/07/23 00:50: APTT 57.2 H 04/07/23 06:42: WBC 16.0 H, RBC 3.65 L, Hgb 10.2 L, Hct 31.9 L, MCV 87.4, MCH 27.9, MCHC 32.0, RDW Std Deviation 46.8 H, RDW Coeff of Liss 14.6, Plt Count 227, MPV 9.6, Immature Gran % (Auto) 1.000 H, Neut % (Auto) 79.4 H, Lymph % (Auto) 8.1 L, [place] % (Auto) 11.3 H, Eos % (Auto) 0.0, Baso % (Auto) 0.2, Absolute Neuts(auto) 12.7 H, Absolute Lymphs (auto) 1.30, Nucleated RBC % 0, Diff Path Review May foll, Toxic Granulation 1+, APTT 52.3 H, Sodium 137, Potassium 3.7, [id number], Carbon Dioxide 26.0, Anion Gap 7, BUN 33 H, Creatinine 1.39 H, Estim Creat Clear Calc 50.38, Est GFR (MDRD) Af Amer 49 L, Est GFR (MDRD) Non-Af 40 L, BUN/Creatinine Ratio 23.7 H, Glucose 172 H, Calcium 10.5 H Micro: Microbiology 04/06/23 10:00 Mucosa - Nose SARS-CoV-2, Influenza & RSV (PCR) - Final Radiography Diagnostic Testing: Radiology Impression Chest CTA 04/06/23 10:32 IMPRESSION: 1. Extensive bilateral pulmonary embolism with saddle embolus component. 2. Right heart strain. 3. Right lower lobe pneumonia with small parapneumonic effusion. N.B. : The above Results were Read Back by Jacques Topete MD to Arlene Acevedo DO, and understanding confirmed on 04/06/2023 11:48:19 (ET). Electronically Signed: Jacques Topete MD at 11:49 EST , ADDENDUM: 04/06/23 1156 IMPRESSION: 1. Extensive bilateral pulmonary embolism with saddle embolus component. 2. Right heart strain. 3. Right lower lobe pneumonia with small parapneumonic effusion. N.B. : The above Results were Read Back by Jacques Topete MD to Arlene Acevedo DO, and understanding confirmed on 04/06/2023 11:48:19 (ET). Electronically Signed: Jacques Topete MD at 11:49 EST , ADDENDUM: 04/06/23 1257 IMPRESSION: undefined Physical Exam Narrative GENERAL: cooperative HEENT: Atraumatic; normocephalic EYES; Anicteric, Normal Conjunctiva NECK; supple, normal thyroid, RESPIRATORY: Diminished to auscultation CARDIOVASCULAR: Regular S1 S2, GI: soft, normoactive bowel sounds, : No Renal angle tenderness; EXTREMITIES: No edema, no clubbing, MUSCULOSKELETAL: no muscle wasting NEURO: Awake; no lateralizing signs. SKIN: No Rash PSYCH; Flat affect Assessment & Plan Assessment/Plan (1) Pulmonary emboli: PLAN: Plan Patient is a 68-year-old lady admitted with progressive shortness of breath. CTA obtained demonstrated extensive bilateral pulmonary embolism with saddle embolus component, right lower lobe with small parapneumonic effusion. Admittedto a monitored bed for further management 1. 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 Patient admitted to a monitored bed started on systemic anticoagulation with heparin. Given the extent of clot and with this being unprovoked patient will need to be on systemic anticoagulation indefinitely. Also did discuss with patient further need to undergo age-related cancer screening to be organized by her primary care physician 2. Right heart strain ? On CAT scan ordered 2D echo for subsequent evaluation 3. Right lower lobe pneumonia ? Most likely pulmonary infarct with superimposed bacterial infection. Patient started on systemic anticoagulation with Levaquin 4. Hypertension - Blood pressure controlled, home medications continued with dose adjustment as needed 5. Dyslipidemia -Patient is on statin as well as fibrate therapy, continued at home dose 6. Rheumatoid arthritis ? Patient is on leflunomide 7./3 obesity with BMI of 47 ? Complicating care weight loss advised 8. Corneal transplant ? She had this done in February so she is to remain on her eyedrops in the righteye 3 times a day Time spent in the patient's overall evaluation,decision-making process, review of diagnostic data, adjustment of management, discussion with other providers, nursing nursing and ancillary staff involved in patient's care documentation, 50 Minutes Charges/Coding Visit Charges Inpatient E&M: 60025 Subs Hosp 04/07/23 1110 <Electronically signed by Rickie Hale MD> Cosigner Signature (if applicable): CC: ~ Signed [facility] Work Phone: 1(260) 965-437701-21-2024 Discharge summary Author Arlene Acevedo [facility] April 06, 2023 3:38pm Note Date/Time April 06, 2023 9 :44am [facility] Medical Records Department [address] [place] [address] Emergency Department Summary 04/06/23 MR#: [id number] Acct: [id number] Name: ANH EWING Rep #:[id number] : 1955 68 From: Arlene Acevedo DO PCP: Dr. Moni Velásquez MD Status:A DM IN Location: [place] [address] HPI History of Present Illness Chief Complaint: Shortness of Breath Detail of Chief Complaint: Shortness of breath Informant: patient Narrative Narrative: Patient presents to the emergency department complaint of shortness of breath has been going on for about 5 days. Patient had a visit with repair miller and seeing them for the first time about 5 days ago. Patient had blood work and a chest x-ray at that time. Patient has history of hypertension and high cholesterol. No history of COPD or emphysema. No history of heart failure. Patient describes exertional dyspnea. She describes orthopnea and has been sleeping in a recliner for the last 3 days. Denies significant weight gain. She had a slight cough. Denies recent travel or surgery. No history of PE or DVT. No history of CHF. Patient denies chest pain. [facility] Medical History Adrenal nodule Anemia Arthritis Asthma Bilateral foot pain Bradycardia Carpal tunnel syndrome, right CKD (chronic kidney disease), stage III Essential hypertension GERD (gastroesophageal reflux disease) Gout Health care maintenance History of pneumonia Mixed hyperlipidemia Morbid obesity with BMI of 45.0-49.9, adult Osteoarthritis Preoperative evaluation to rule out surgical contraindication Right foot pain Thyroid nodule Home Medications betamethasone dipropionate 0.05 % topical cream 1 applic topical DAILY PRN skin 04/12/19 [History Last Taken Unknown] Handicap Placard #1 ea 12/20/19 [Rx Last Taken Unknown] calcium carbonate 500 mg calcium (1,250 mg) tablet 500 mg PO DAILY 12/28/19 [History Last Taken Unknown] cholecalciferol (vitamin D3) 25 mcg (1,000 unit) tablet 1,000 unit PO DAILY 12/28/19 [History Last Taken Unknown] acetaminophen 325 mg capsule (Tylenol) 325 mg PO ONCE PRN fever or pain 01/28/20[History Last Taken Unknown] vibegron 75 mg tablet (Gemtesa) 75 mg PO DAILY 01/31/21 [History Last Taken Unknown] simvastatin 20 mg tablet 20 mg PO QHS #90 tabs 06/14/22 [Rx Last Taken Unknown] hydrochlorothiazide 25 mg tablet 25 mg PO DAILY #90 tabs 09/18/22 [Rx Last Taken Unknown] atenolol 50 mg tablet 50 mg PO DAILY #90 tabs 10/21/22 [Rx Last Taken Unknown] tramadol 50 mg tablet 50 mg PO Q6H PRN pain 11/13/22 [History Last Taken Unknown] valsartan 320 mg tablet 320 mg PO DAILY #90 tabs 11/13/22 [Rx Last Taken Unknown] Handicap Placard #1 ea 11/21/22 [Rx Last Taken Unknown] fenofibrate 54 mg tablet 54 mg PO DAILY #90 tabs 03/18/23 [Rx Last Taken Unknown] leflunomide 20 mg tablet 20 mg PO DAILY 04/03/23 [History Last Taken Unknown] prednisolone acetate 1 % eye drops,suspension 1 drp ophthalmic (eye) TID 04/03/23 [History Last Taken Unknown] Allergy/AdvReac Type Severity Reaction Status Date / Time Sulfa (Sulfonamide Allergy Unknown Unknown Verified 04/06/23 09:27 Antibiotics) hydroxychloroquine Allergy Hives Verified 04/06/23 09:27 amlodipine AdvReac Intermediate Foot and Verified 04/06/23 09:27 ankle swelling Family History Brother Sudden cardiac , Onset Age: 50 Mother Heart disease Father Heart disease Surgical History History of cataract surgery History of cholecystectomy History of tubal ligation uterine ablation Social History Smoking Status: Never smoker alcohol intake: never substance use type: does not use caffeine: Yes Type: coffee Number of servings: 2 ROS ROS ED Review of Systems ROS Unobtainable: other Constitutional Constitutional ED: Reports lethargy; Denies chills, fever(s), sweats or weight loss Eyes Eyes: Denies blurry vision, change in vision or diplopia ENT ENT ED: Denies rhinorrhea or sore throat Cardiovascular Cardiovascular: Denies chest pain, orthopnea or racing heartbeat Respiratory/Chest Respiratory/Chest: Reports cough, dyspnea and dyspnea on exertion; Denies orthopnea or sputum Gastrointestinal Gastrointestinal: Denies abdominal pain, diarrhea, nausea or vomiting Genitourinary Genitourinary ED: Denies dysuria, hematuria or urinary frequency Musculoskeletal Musculoskeletal: Denies arthralgias, back pain, myalgias or neck pain Integumentary Denies abscess, Abrasions or rash Neurologic Neurologic: Reports weakness; Denies headache(s) Psychiatric Psychiatric: Denies anxiety, depression or suicidal thoughts Endocrine Endocrinology: Denies polydipsia, polyphagia or polyuria Hematologic/Lymphatic Hematologic/Lymphatic: Denies easy bleeding, easy bruising or lymphadenopathy Allergic/Immunologic Allergic/Immunologic ED: Denies mouth swelling, tongue swelling or urticaria EXAM Physical Exam Const Vital Signs: 04/06/23 09:25 04/06/23 09:54 04/06/23 09:51 Temperature 98.1 F Temperature Source Temporal Pulse Rate 89 76 78 Respiratory Rate 14 16 16 Blood Pressure 156/71 H Blood Pressure Mean 99 Pulse Ox 96 96 Oxygen Delivery Method Room Air Room Air Oxygen Flow Rate (L/min) Fraction of Inspired Oxygen (FIO2) 04/06/23 09:51 04/06/23 09:52 04/06/23 11:00 Temperature Temperature Source Pulse Rate Respiratory Rate 30 H Blood Pressure Blood Pressure Mean Pulse Ox 87 97 Oxygen Delivery Method Room Air Nasal Cannula Oxygen Flow Rate (L/min) 2 Fraction of Inspired Oxygen (FIO2) 98 04/06/23 11:02 Temperature Temperature Source Pulse Rate 77 Respiratory Rate 14 Blood Pressure 111/59 L Blood Pressure Mean 75 Pulse Ox 97 Oxygen Delivery Method Oxygen Flow Rate (L/min) Fraction of Inspired Oxygen (FIO2) Positive well nourished and well developed General Appearance ED: well developed and NAD HEENT Reports TM's clear and moist mucous membranes normocephalic and atraumatic; Negative for trauma or tenderness Tympanic Membrane ED: Yes TM's clear Eyes PERRL and EOMs intact bilaterally General Eye ED: Negative for pale conjunctiva or scleral icterus Neck no lymphadenopathy, supple and no JVD General: Negative for tenderness Chest Wall inspection of chest normal and palpation of chest normal Chest: Negative for tenderness Resp No normal respiratory effort and No clear to auscultation bilaterally Resp Narrative: Patient has tachypnea and conversational dyspnea Effort and Inspection: Negative for respiratory distress or pain with movement Auscultation: wheezes; Negative for rhonchi or diminished lung sounds Cardio regular rate, regular rhythm, S1 normal heart sound, S2 normal heart sound and no murmurs Peripheral Pulses: pulses 2+ throughout GI normal to inspection, nondistended, normoactive bowel sounds, soft to palpation,non-tender, non-distended and no masses Back/Spine no CVA tenderness and no thoracic nor lumbar tenderness Extremity normal to inspection General Extremety ED: Negative for edema General Extremity: Negative for edema Neuro oriented x3, CN's II-XII intact bilaterally, no sensory deficits noted and gait normal Sensorium / Orientation: awake, alert, oriented to person, oriented to place andoriented to time Motor Exam: strength 5/5 throughout and strength abnormal Psych mental status grossly normal Skin no rashes or lesions noted and no wounds MDM MDM MDM Narrative Medical decision making narrative: Patient presents to the emergency department with dyspnea and exertional symptoms. Also symptoms of CHF with orthopnea and conversational dyspnea. IV line established. EKG obtained showed a sinus rhythm with a ventricular rate of76 bpm [address] changes. CBC with differential showed a white count of 14.9 with hemoglobin 11.8 and platelet count of 209. Chemistries unremarkable. D-dimer was elevated 7.15. Chemistries unremarkable. BUN 25 andcreatinine 1.67. Troponin was elevated at 122. BNP was elevated at 580. CTA of the chest ordered to rule out PE with heart strain. Official report from radiology pending however on my interpretation it does appear she has bilateral PEs. I did order heparin drip. Will discuss with hospitalist to evaluate for admission. Suspect symptoms related to PE rather than acute coronary syndrome at this point. Lab Data Attestation: I reviewed the patient's lab results. Labs: Laboratory Results - last 24 hr 04/06/23 09:47 WBC 14.9 H RBC 4.02 L Hgb 11.8 L Hct 35.9 L MCV 89.3 MCH 29.4 MCHC 32.9 RDW Std Deviation 47.7 H RDW Coeff of Liss 14.7 H Plt Count 209 MPV 9.3 Immature Gran % (Auto) 0.500 Neut % (Auto) 78.5 H Lymph % (Auto) 9.9 L [place] % (Auto) 10.8 H Eos % (Auto) 0.0 Baso % (Auto) 0.3 Absolute Neuts (auto) 11.7 H Absolute Lymphs (auto) 1.48 Nucleated RBC % 0 Differential Comment SCANNED Diff Path Review July foll PT 16.9 H INR 1.4 APTT 35.6 D-Dimer Quant (PE/DVT) 7.15 H* Sodium 134 L Potassium 3.5 Chloride 100 Carbon Dioxide 25.0 Anion Gap 9 BUN 25 H Creatinine 1.67 H Estim Creat Clear Calc 42.11 Est GFR (MDRD) Af Amer 39 L Est GFR (MDRD) Non-Af 32 L BUN/Creatinine Ratio 15.0 Glucose 136 H Calcium 10.7 H Troponin I High Sens 122 H* B-Natriuretic Peptide 580.7 H Radiography Diagnostic Testing: Clinical Impression(s) from Imaging Studies Chest X-Ray 04/06/23 09:40 IMPRESSION: Increasing airspace opacification of the right lower lobe consistent with pneumonia with small right parapneumonic effusion. Electronically Signed: Jacques Topete MD at 11:01 EST , Chest CTA 04/06/23 10:32 IMPRESSION: 1. Extensive bilateral pulmonary embolism with saddle embolus component. 2. Right heart strain. 3. Right lower lobe pneumonia with small parapneumonic effusion. N.B. : The above Results were Read Back by Jacques Topete MD to Arlene Acevedo DO, and understanding confirmed on 04/06/2023 11:48:19 (ET). Electronically Signed: Jacques Topete MD at 11:49 EST , ADDENDUM: 04/06/23 1156 IMPRESSION: 1. Extensive bilateral pulmonary embolism with saddle embolus component. 2. Right heart strain. 3. Right lower lobe pneumonia with small parapneumonic effusion. N.B. : The above Results were Read Back by Jacques Topete MD to Arlene Acevedo , , and understanding confirmed on 04/06/2023 11:48:19 (ET). Electronically Signed: Jacques Topete MD at 11:49 EST , ADDENDUM: 04/06/23 1257 IMPRESSION: undefined 1 view chest x-ray obtained interpreted by myself as increased markings of the right lower lobe concerning for infiltrate versus pulmonary congestion. Radiology in agreement felt likely related to pneumonia. EKG Initial EKG: Attestation: I personally reviewed and interpreted this EKG as follows: Comments: Sinus rhythm with rate of [address] changes Discharge Plan Dx/Rx/DC Orders Clinical Impression: Hypoxemia, Dyspnea, Respiratory failure, Elevated troponin, Pulmonary emboli Disposition Disposition: Acute Care Hospital [facility] Discharge Date/Time: 04/06/23 11:50 What to do if you have Problems For any increased pain, shortness of breath, bleeding, nausea or vomiting, chestpain, or any unexpected problems, contact your Primary Care Provider. Call [facility] ([phone]) or report to the closest Emergency Room. Call 911 if necessary. 04/06/23 3436 <Electronically signed by Arlene Acevedo DO> Cosigner Signature (if applicable): CC: Dr. Moni Velásquez MD ~ Signed [facility] Work Phone: 1(389) 966-420101-21-2024 History and physical note Author Thor Alfred [facility] April 06, 2023 1:46pm Note Date/Time April 06, 2023 1 1:15am [facility] Medical Records Department [address] [place] [id number] H&P Exam - Hospitalist 04/06/23 1112 MR#: [id number] Acct: [id number] Name: ANH EWING Rep #:[id number] : 1955 68 From: Thor farias MD PCP: Dr. Moni Velásquez MD Status:A DM IN Location: [place] [address] HPI - General General Date of Admission: 04/06/23 HPI Narrative ANH EWING, is a 68 F who presents to the hospital with increasing shortness of breath and mild chest pain. She says that this started about 5 days ago and has not been able to sleep in the chair for the last 3 days. She follow-up withcardiology on the for this issue with chest pain and shortness of breath without any lower extremity edema. An echocardiogram and a Doppler were orderedas well as a Lexiscan however none of these had time to be completed prior to admission today. CTA of the chest demonstrates a very large right mainstem PE likely saddle and her troponin is elevated indicating right heart strain. She is not significantly hypoxic and does have some pain with deep breathing, she denies any calf pain, on my read of the CTA there is likely pulmonary infarct inthe right lower lobe and unlikely to be pneumonia at this time despite her elevated leukocytosis which can occur with large PEs. [facility] Medical History Adrenal nodule Anemia Arthritis Asthma Bilateral foot pain Bradycardia Carpal tunnel syndrome, right CKD (chronic kidney disease), stage III Essential hypertension GERD (gastroesophageal reflux disease) Gout Health care maintenance History of pneumonia Mixed hyperlipidemia Morbid obesity with BMI of 45.0-49.9, adult Osteoarthritis Preoperative evaluation to rule out surgical contraindication Right foot pain Thyroid nodule Home Medications betamethasone dipropionate 0.05 % topical cream 1 applic topical DAILY PRN skin 04/12/19 [History Last Taken Unknown] Handicap Placard #1 ea 12/20/19 [Rx Last Taken Unknown] calcium carbonate 500 mg calcium (1,250 mg) tablet 500 mg PO DAILY 12/28/19 [History Last Taken Unknown] cholecalciferol (vitamin D3) 25 mcg (1,000 unit) tablet 1,000 unit PO DAILY 12/28/19 [History Last Taken Unknown] acetaminophen 325 mg capsule (Tylenol) 325 mg PO ONCE PRN fever or pain 01/28/20[History Last Taken Unknown] vibegron 75 mg tablet (Gemtesa) 75 mg PO DAILY 01/31/21 [History Last Taken Unknown] simvastatin 20 mg tablet 20 mg PO QHS #90 tabs 06/14/22 [Rx Last Taken Unknown] hydrochlorothiazide 25 mg tablet 25 mg PO DAILY #90 tabs 09/18/22 [Rx Last Taken Unknown] atenolol 50 mg tablet 50 mg PO DAILY #90 tabs 10/21/22 [Rx Last Taken Unknown] tramadol 50 mg tablet 50 mg PO Q6H PRN pain 11/13/22 [History Last Taken Unknown] valsartan 320 mg tablet 320 mg PO DAILY #90 tabs 11/13/22 [Rx Last Taken Unknown] Handicap Placard #1 ea 11/21/22 [Rx Last Taken Unknown] fenofibrate 54 mg tablet 54 mg PO DAILY #90 tabs 03/18/23 [Rx Last Taken Unknown] leflunomide 20 mg tablet 20 mg PO DAILY 04/03/23 [History Last Taken Unknown] prednisolone acetate 1 % eye drops,suspension 1 drp ophthalmic (eye) TID 04/03/23 [History Last Taken Unknown] Allergy/AdvReac Type Severity Reaction Status Date / Time Sulfa (Sulfonamide Allergy Unknown Unknown Verified 04/06/23 09:27 Antibiotics) hydroxychloroquine Allergy Hives Verified 04/06/23 09:27 amlodipine AdvReac Intermediate Foot and Verified 04/06/23 09:27 ankle swelling Family History Brother Sudden cardiac , Onset Age: 50 Mother Heart disease Father Heart disease Surgical History History of cataract surgery History of cholecystectomy History of tubal ligation uterine ablation Social History Smoking Status: Never smoker alcohol intake: never substance use type: does not use caffeine: Yes Type: coffee Number of servings: 2 ROS Constitutional Constitutional: Denies chills, fatigue, fever(s) or malaise Eyes Eyes: Denies blurry vision ENT HEENT: Denies headache(s) or nasal discharge Cardiovascular Cardiovascular: Reports chest pain and orthopnea; Denies dyspnea on exertion or syncope Respiratory/Chest Respiratory/Chest: Reports shortness of breath at rest and shortness of breath with exertion; Denies cough Gastrointestinal Gastrointestinal: Denies constipation, diarrhea, nausea or vomiting Genitourinary Genitourinary: Denies dysuria Neurologic Neurologic: Denies focal weakness, numbness or tremor(s) Psychiatric Psychiatric: Denies anxiety or depression Vital Signs Vital Signs Vital Signs: 04/06/23 09:25 04/06/23 09:54 04/06/23 09:51 Temperature 98.1 F Temperature Source Temporal Pulse Rate 89 76 78 Respiratory Rate 14 16 16 Blood Pressure 156/71 H Blood Pressure Mean 99 Pulse Ox 96 96 Oxygen Delivery Method Room Air Room Air Oxygen Flow Rate (L/min) Fraction of Inspired Oxygen (FIO2) 04/06/23 09:51 04/06/23 09:52 04/06/23 11:00 Temperature Temperature Source Pulse Rate Respiratory Rate 30 H Blood Pressure Blood Pressure Mean Pulse Ox 87 97 Oxygen Delivery Method Room Air Nasal Cannula Oxygen Flow Rate (L/min) 2 Fraction of Inspired Oxygen (FIO2) 98 04/06/23 11:02 04/06/23 11:10 Temperature Temperature Source Pulse Rate 77 76 Respiratory Rate 14 19 H Blood Pressure 111/59 L Blood Pressure Mean 75 Pulse Ox 97 97 Oxygen Delivery Method Oxygen Flow Rate (L/min) Fraction of Inspired Oxygen (FIO2) Weight Weight: 275 lb 2.19 oz Body Mass Index (BMI) 47.2 Physical Exam Narrative General: Alert, Oriented x3, Cooperative, No apparent distress HEENT: Atraumatic, PERRLA, EOMI, Normocephalic Oral: Moist Mucosa Neck: Supple, No JVD Lungs: Diminished, Normal air movement, No rhonchi, No wheeze, No rales, tachypneic Cardiovascular: Regular rate, Regular Rhythm, Normal S1, Normal S2, No murmurs Abdomen: Soft, Non Tender, Non-Distended, No Hepato-splenomegaly Extremities: No edema, Capillary Refill Less than 3 Seconds Skin: No rashes, No breakdown Musculoskeletal: No Tenderness to Palpation of Joints or Extremities Neurological: Cranial nerves II-XII grossly intact, Motor Exam 5/5 strength throughout, Sensory exam intact to light touch and pain Psych/Mental Status: Normal Affect, Appropriate Results Lab / Micro Data 04/06/23 09:47 04/06/23 09:47 Labs: Laboratory Results - last 24 hr 04/06/23 09:47: WBC 14.9 H, RBC 4.02 L, Hgb 11.8 L, Hct 35.9 L, MCV 89.3, MCH 29.4, MCHC 32.9, RDW Std Deviation 47.7 H, RDW Coeff of Liss 14.7 H, Plt Count 209, MPV 9.3, Immature Gran % (Auto) 0.500, Neut % (Auto) 78.5 H, Lymph % (Auto)9.9 L, [place] % (Auto) 10.8 H, Eos % (Auto) 0.0, Baso % (Auto) 0.3, Absolute Neuts(auto) 11.7 H, Absolute Lymphs (auto) 1.48, Nucleated RBC % 0, Differential Comment SCANNED, Diff Path Review July, PT 16.9 H, INR 1.4, APTT 35.6, D-Dimer Quant (PE/DVT) 7.15 H*, Sodium 134 L, Potassium 3.5, Chloride 100, Carbon Dioxide 25.0, Anion Gap 9, BUN 25 H, Creatinine 1.67 H, Estim Creat Clear Calc 42.11, Est GFR (MDRD) Af Amer 39 L, Est GFR (MDRD) Non-Af 32 L, BUN/Creatinine Ratio 15.0, Glucose 136 H, Calcium 10.7 H, Troponin I High Sens 122 H*, B-Natriuretic Peptide 580.7 H Micro: Microbiology 04/06/23 10:00 Mucosa - Nose SARS-CoV-2, Influenza & RSV (PCR) - Final Imagaing Radiology Impression Chest X-Ray 04/06/23 09:40 IMPRESSION: Increasing airspace opacification of the right lower lobe consistent with pneumonia with small right parapneumonic effusion. Electronically Signed: Jacques Topete MD at 11:01 EST Reading Location ID and State: [facility] / [place] Tel , Service support , Assessment & Plan Assessment/Plan (1) Pulmonary emboli: PLAN: Plan 1. 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 Continue with the heparin drip ? Will obtain an echo ? Given history of sudden in family would recommend hematology follow-up as an outpatient ? Will hold off of antibiotics and see if her white count resolves on its own ifnot then could conceivably start community-acquired antibiotics 2. HTN/HLD ? Will resume her home atenolol and cholesterol medications ? Will hold her hydrochlorothiazide and her losartan for her slight bump in creatinine not enough to indicate an RADAMES ? Blood pressure stable ? Will monitor make adjustments as necessary ? She had an echo in 2018 with an EF of 65% and an RVSP of 30 mmHg with no sign of diastolic dysfunction 3. Rheumatoid arthritis ? Can resume her home medications ? Stable 4. Corneal transplant ? She had this done in February so she is to remain on her eyedrops in the righteye 3 times a day DVT: Heparin drip 75 minutes was spent on direct patient care, including documentation as well as chart review and collaboration with colleagues Charges/Coding Visit Charges Inpatient E&M: 86648 Init Hosp L3 04/06/23 1346 <Electronically signed by Thor Alfred MD> Cosigner Signature (if applicable): CC: Dr. Moni Velásquez MD; Dr. Thor Alfred MD~ Signed [facility] Work Phone: 1(891) 735-257501-17-2024 NoteHNO ID: [id number] Author: KIRAN GIFFORD MD Service: ? Author [...] all of its relevant components. Kiran Gifford, [facility]12-27-2023 NoteHNO ID: [id number] Author: Kiran Gifford MD Service: ? Author [...] all of its relevant components. Kiran Gifford, [facility]12-20-2023 NoteHNO ID: [id number] Author: Kiran Gifford MD Service: ? Author [...] all of its relevant components. Kiran Gifford, [facility]12-20-2023 Instructions* Patient Instructions* Kiran Gifford MD - 03/05/2023 11:12 AM EST -prednisolone 4x daily right eye -vigamox four times a day right eye -lie flat on back every two hours -[facility] History of Present illness Narrative* Kiran Gifford MD - 03/05/2023 11:11 AM EST Assessment and Plan 1. Corneal [...] components. Kiran Gifford MD [facility]23 NoteHNO ID: [id number] Author: Kiran Gifford MD Service: ? Author [...] all of its relevant components. Kiran Gifford [facility]12-16-2023 Instructions* Patient Instructions* Kiran Gifford MD - 03/01/2023 1:32 PM EST Images from the original note were not included. [facility] History of Present illness Narrative* Kiran Gifford MD - 03/01/2023 1:31 PM EST Assessment and Plan 1. Corneal edema, [...] components. Kiran Gifford MD [facility] History of Past illness Narrative* Problem Noted Date Diagnosed Date Resolved Date Corneal edema, secondary, right 02/28/2023 02/28/2023 documented as of this encounter (statuses as of 03/01/2023) [facility] History of Past illness Narrative* Problem Noted Date Diagnosed Date Resolved Date Corneal edema, secondary, right 02/28/2023 02/28/2023 documented as of this encounter (statuses as of 03/06/2023) [facility] History of Past illness Narrative* Problem Noted Date Diagnosed Date Resolved Date Corneal edema, secondary, right 02/28/2023 02/28/2023 documented as of this encounter (statuses as of 04/25/2023) [facility] History of Past illness Narrative* Problem Noted Date Diagnosed Date Resolved Date Corneal edema, secondary, right 02/28/2023 02/28/2023 documented as of this encounter (statuses as of 05/28/2023) [facility]11-08-2023 NoteHNO ID: [id number] Author: Kiran Gifford MD Service: ? Author [...] all of its relevant components. Kiran Gifford, [facility]11-08-2023 Instructions* Patient Instructions* Kiran Gifford MD - 01/22/2023 9:36 AM EST -Tre White (surgical scheduling): [phone] [facility] History of Present illness Narrative* Kiran [...] components. Kiran Gifford MD [facility] Miscellaneous Notes* Telephone Encounter - Cherise Leija RN - 01/20/2023 10:06 AM EST Called and relayed Dr. Gifford's message to the patient. She voiced understanding and appreciation for name of what is causing her corneal swelling. Cherise Leija RN January 20, 2023 10:08 AM * Telephone Encounter - Kiran Gifford MD - 01/20/2023 8:24 AM EST Unlikley. These may causse dry eye by increasing water excretion from the body, but unlikley wsweling. She has a focal descemet ddtachment that expolains that * Telephone Encounter - Cherise Leija RN - 01/16/2023 4:37 PM EDT Will wait for Dr. Gifford to advise. Cherise Leija RN January 16, 2023 4:37 PM * Telephone Encounter - Luciana Valencia OA - 01/16/2023 3:45 PM EDT Spoke with the patient she stated that she is currently taking hydralazine and hydrochlorothiazide which she is under the care of [facility] to control her hypertension. Patient states she started these medications shortly before she started to experience the eye pain in the right eye. Patient spoke with the [facility] and they advised that she [...] asking for a phone call back at [phone]. Review and advise. [facility]23 NoteHNO ID: [id number] Author: Kiran Gifford MD Service: ? Author [...] all of its relevant components. Kiran Gifford, [facility]10-18-2023 History of Present illness Narrative* Kiran Gifford [...] components. Kiran Gifford MD [facility] Miscellaneous Notes* Telephone Encounter - Abbi Cole - 12/27/2022 10:59 AM EDT Ptient called wanting to let you know she is having carpel tunnel surgery on 01/07 and didn't know if it would affect her eyes.Abbi Laurent Pss documented [facility]09-[facility]-2023 NoteHNO ID: [id number] Author: Kiran Gifford MD Service: ? Author [...] all of its relevant components. Kiran Gifford, [facility]09-20-2023 NoteHNO ID: [id number] Author: Kiran Gifford MD Service: ? Author [...] Gifford MD December 04, 2022 9:09 [facility]09-18-2023 Procedure note [facility]09-08-2023 Miscellaneous Notes* Telephone Encounter - Luciana Valencia OA - 11/22/2022 3:45 PM EDT [facility] patient's referral to Dr. Gifford. She stated that the patient is scheduled to see one of their providers on Friday11/25/2022 for a follow up. Patient is scheduled to then follow up with Dr. Gifford for a consult on 12/04/2022. This patient has also been added to the wait list for a cancellation. Please advise MARRY Nelson documented in this encounterDel[facility] HospitalEvaluation [facility]* Diagnosis Onset Date Resolution Status Health care maintenance acut e Osteoarthritis chronic Osteoarthritis chronic Bradycardia acute Essential hypertension chron ic Mixed hyperlipidemia [facility] Work Phone: Evaluation note* Diagnosis Onset Date Resolution Status Bradycardia acute Essential hypertension chron ic Mixed hyperlipidemia chronic [facility] Work Phone: Evaluation noteNo assessment information available [facility] Work Phone: Evaluation note* Diagnosis Onset Date Resolution Status Bradycardia acute Essential hypertension chron ic Mixed hyperlipidemia chronic Carpal tunnel syndrome, right chronic Essential hypertension chron ic GERD (gastroesophageal reflux disease) chronic Mixed hyperlipidemia chronic Bradycardia acute Essential hypertension chron ic Mixed hyperlipidemia chronic [facility] Work Phone: Evaluation note* Diagnosis Corneal edema, secondary, right- Primary Corneal scar, right eye Corneal opacity, unspecified Pseudophakia Lens replaced by other means Corneal edema, secondary, right [facility] Diagnosis Corneal edema, secondary, right- Primary Corneal scar, right eye Corneal opacity, unspecified Pseudophakia Lens replaced by other means Corneal edema, secondary, right [facility]* Diagnosis Onset Date Resolution Status Carpal tunnel syndrome, right chronic Essential hypertension chron ic GERD (gastroesophageal reflux disease) chronic Mixed hyperlipidemia chronic Bradycardia acute Essential hypertension chron ic Mixed hyperlipidemia chronic Health care maintenance acut e Preoperative evaluation to r ule out surgical contraindication acute Carpal tunnel syndrome, right chronic CKD (chronic kidney disease), stage III chronic Essential hypertension chron ic Mixed hyperlipidemia chronic [facility] Work Phone: Evaluation note* Diagnosis Status post corneal transplant- Primary Cornea replaced by transplant [facility] Diagnosis Onset Date Resolution Status Health care maintenance acut e Preoperative evaluation to r ule out surgical contraindication acute Carpal tunnel syndrome, right chronic CKD (chronic kidney disease), stage III chronic Essential hypertension chron ic Mixed hyperlipidemia chronic Dyspnea on exertion acute CKD (chronic kidney disease), stage III chronic Dyslipidemia chronic Essential hypertension chron ic Morbid obesity with BMI of 45.0-49.9, adult chronic Dyspnea acute Elevated troponin acute Hypoxemia acute Pulmonary emboli acute Respiratory failure acute [facility] Work Phone: Evaluation note* Diagnosis 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 [facility]* Diagnosis Onset Date Resolution Status Health care maintenance acut e Preoperative evaluation to r ule out surgical contraindication acute Carpal tunnel syndrome, right chronic CKD (chronic kidney disease), stage III chronic Essential hypertension chron ic Mixed hyperlipidemia chronic Dyspnea on exertion acute CKD (chronic kidney disease), stage III chronic Dyslipidemia chronic Essential hypertension chron ic Morbid obesity with BMI of 45.0-49.9, adult chronic Pulmonary emboli acute Dyspnea resolved Elevated troponin resolved Hypoxemia resolved Respiratory failure resolved Adrenal nodule acute Hospital discharge follow-up acute Pulmonary emboli acute Adrenal nodule acute Pulmonary emboli acute Essential hypertension [facility] Work Phone: Evaluation note* Diagnosis Onset Date Resolution Status Health care maintenance acut e Preoperative evaluation to r ule out surgical contraindication acute Carpal tunnel syndrome, right chronic CKD (chronic kidney disease), stage III chronic Essential hypertension chron ic Mixed hyperlipidemia chronic Dyspnea on exertion acute CKD (chronic kidney disease), stage III chronic Dyslipidemia chronic Essential hypertension chron ic Morbid obesity with BMI of 45.0-49.9, adult chronic Pulmonary emboli acute Dyspnea resolved Elevated troponin resolved Hypoxemia resolved Respiratory failure resolved Adrenal nodule acute Pulmonary emboli acute Adrenal nodule acute Pulmonary emboli acute Essential hypertension [facility] Work Phone: Evaluation note* Diagnosis Onset Date Resolution Status Health care maintenance acut e Preoperative evaluation to r ule out surgical contraindication acute Carpal tunnel syndrome, right chronic CKD (chronic kidney disease), stage III chronic Essential hypertension chron ic Mixed hyperlipidemia chronic Dyspnea on exertion acute CKD (chronic kidney disease), stage III chronic Dyslipidemia chronic Essential hypertension chron ic Morbid obesity with BMI of 45.0-49.9, adult chronic Pulmonary emboli acute Dyspnea resolved Elevated troponin resolved Hypoxemia resolved Respiratory failure resolved Adrenal nodule acute Pulmonary emboli acute Adrenal nodule acute Pulmonary emboli acute Essential hypertension chron ic Itching acute [facility] Work Phone: Evaluation note* Diagnosis Status post 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, right eye Corneal opacity, unspecified Pseudophakia Lens replaced by other means [facility] Phone: [facility] Work Phone: [facility] Dis[facility]WFire[facility] Work Phone: Reason for referral (narrative)No reason for referral information availableWFirelands [facility] Work Phone: Summary Purpose Family History No Family History Records Found Relationship Condition Age at Onset Recorded Date/T luis brother Sudden cardiac 50 mother Cardiac disease Unknown father Cardiac disease Unknown Advance Directives No Advanced Directives Records Found Advance Directive Response Recorded Date/ Time Living Will Yes December 27 10:49pm Power of Insect Control Inspector Yes December 28, 2019 10:49pm Advance Directive Response Recorded Date/ Time Living Will Yes December 27 9:49pm Power of Insect Control Inspector Yes December 28, 2019 9:49pm Advance Directive Response Recorded Date/ Time Name of Medical Power of Insect Control Inspector spouse April 06, 2023 9:51am Living Will Yes April 06 9:51am Power of Insect Control Inspector Yes April 06, 2023 9:51am Advance Directive Response Recorded Date/ Time Name of Medical Power of Insect Control Inspector Felipe Ewing April 06, 2023 12:20pm Living Will Yes April 06 12:20pm Power of Insect Control Inspector Yes April 06, 2023 12:20pm Advance Directive Response Recorded Date/ Time Living Will Yes April 06 1:20pm Do you have a Healthcare Power of Insect Control Inspector? Yes April 06, 2023 1:20pm Chief Complaint and Reason for Visit Chief Complaint knee swelling, ankle pain LEFT KNEE OSTEO 1 y fu Reason for Visit Health care maintena nce Osteoarthritis Osteoarthritis Bradycardia Essential hypertension Mixed hyperlipidemia Chief Complaint knee swelling, ankle pain LEFT KNEE OSTEO 1 y fu PAIN- COPY PCP XRAY Reason for Visit Health care maintena nce Osteoarthritis Osteoarthritis Bradycardia Essential hypertension Mixed hyperlipidemia Chief Complaint knee swelling, ankle pain LEFT KNEE OSTEO 1 y fu PAIN- COPY PCP XRAY BRADYCARDIA BRADYCARDIA AVISE BOX- COPY PCP Reason for Visit Health care maintena nce Osteoarthritis Osteoarthritis Bradycardia Essential hypertension Mixed hyperlipidemia Chief Complaint OSTEO 1 y fu PAIN- COPY PCP XRAY BRADYCARDIA BRADYCARDIA AVISE BOX- COPY PCP DID LABS YESTERDAY/ FORGOT URINE Reason for Visit Bradycardia Essential hypertension Mixed hyperlipidemia Chief Complaint DID LABS YESTERDAY/ FORGOT URINE PAIN- COPY PCP Chief Complaint PAIN- COPY PCP 6 m fu EORDER FROM RICHARD GARCIA Reason for Visit Bradycardia Essential hypertension Mixed hyperlipidemia Chief Complaint PAIN- COPY PCP 6 m fu EORDER FROM RICHARD GARCIA PAIN- COPY PCP LABS AND XRAY- PAIN COPY PCP Reason for Visit Bradycardia Essential hypertension Mixed hyperlipidemia Chief Complaint PAIN- COPY PCP LABS AND XRAY- PAIN COPY PCP Chief Complaint 6 M FU 2 WK BP CK WITH NURSE PER KRR Hydralazine increased L.Khushbu EORDERS-CC PCP BP check after adding HCTZ L.Lorson Reason for Visit Bradycardia Essential hypertension Mixed hyperlipidemia Chief Complaint 6 M FU 2 WK BP CK WITH NURSE PER KRR Hydralazine increased L.Lorson EORDERS-CC PCP BP check after adding HCTZ L.Lorson S/O- PAIN-COPY PCP Reason for Visit Bradycardia Essential hypertension Mixed hyperlipidemia Chief Complaint EORDERS-CC PCP BP check after adding HCTZ L.Lorson S/O- PAIN-COPY PCP AHA BP monitor checkup L.Lorson MED CHECK 8 wk fu COPY PCP RIGHT UPPER EXT CTS RIGHT UPPER EXT CTS Reason for Visit Bradycardia Essential hypertension Mixed hyperlipidemia Carpal tunnel syndrome, right Essential hypertension GERD (gastroesophageal reflux disease) Mixed hyperlipidemia Bradycardia Essential hypertension Mixed hyperlipidemia Chief Complaint MED CHECK 8 wk fu COPY PCP RIGHT UPPER EXT CTS RIGHT UPPER EXT CTS SCREENING EORDER FROM DR VELÁSQUEZ 3 M FU/SURGERY CLEARANCE Reason for Visit Carpal tunnel syndro me, right Essential hypertension GERD (gastroesophageal reflux disease) Mixed hyperlipidemia Bradycardia Essential hypertension Mixed hyperlipidemia Health care maintenance Preoperative evaluation to rule out surgical contraindication Carpal tunnel syndrome, right CKD (chronic kidney disease), stage III Essential hypertension Mixed hyperlipidemia Chief Complaint SCREENING EORDER FROM DR VELÁSQUEZ 3 M FU/SURGERY CLEARANCE 6 M FU EORDERS SADDLE PE Reason for Visit [facility] Preoperative evaluation to rule out surgical contraindication Carpal tunnel syndrome, right CKD (chronic kidney disease), stage III Essential hypertension Mixed hyperlipidemia Dyspnea on exertion CKD (chronic kidney disease), stage III Dyslipidemia Essential hypertension Morbid obesity with BMI of 45.0-49.9, adult Dyspnea Elevated troponin Hypoxemia Pulmonary emboli Respiratory failure Chief Complaint SCREENING EORDER FROM DR VELÁSQUEZ 3 M FU/SURGERY CLEARANCE 6 M FU EORDERS SADDLE PE SADDLE PE SADDLE PE SADDLE PE [facility] Preoperative evaluation to rule out surgical contraindication Carpal tunnel syndrome, right CKD (chronic kidney disease), stage III Essential hypertension Mixed hyperlipidemia Dyspnea on exertion CKD (chronic kidney disease), stage III Dyslipidemia Essential hypertension Morbid obesity with BMI of 45.0-49.9, adult Dyspnea Elevated troponin Hypoxemia Pulmonary emboli Respiratory failure Chief Complaint SCREENING EORDER FROM DR VELÁSQUEZ 3 M FU/SURGERY CLEARANCE 6 M FU EORDERS SADDLE PE SADDLE PE SADDLE PE SADDLE PE SADDLE PE [facility] to rule out surgical contraindication Carpal tunnel syndrome, right CKD (chronic kidney disease), stage III Essential hypertension Mixed hyperlipidemia Dyspnea on exertion CKD (chronic kidney disease), stage III Dyslipidemia Essential hypertension Morbid obesity with BMI of 45.0-49.9, adult Dyspnea Elevated troponin Hypoxemia Pulmonary emboli Respiratory failure Chief Complaint EORDER FROM DR REGAN Hernandez 3 M FU/SURGERY CLEARANCE 6 M FU EORDERS SADDLE PE SADDLE PE SADDLE PE SADDLE PE SADDLE PE ACUTE [facility] FU NEED ORDER/TIMED DRAW BETWEEN 8A-9A 2 WK FU DYSPNEA DYSPNEA [facility] evaluation to rule out surgical contraindication Carpal tunnel syndrome, right CKD (chronic kidney disease), stage III Essential hypertension Mixed hyperlipidemia Dyspnea on exertion CKD (chronic kidney disease), stage III Dyslipidemia Essential hypertension Morbid obesity with BMI of 45.0-49.9, adult Pulmonary emboli Dyspnea Elevated troponin Hypoxemia Respiratory failure Adrenal nodule Hospital discharge follow-up Pulmonary emboli Adrenal nodule Pulmonary emboli Essential hypertension Chief Complaint EORDER FROM DR REGAN Hernandez 3 M FU/SURGERY CLEARANCE 6 M FU EORDERS SADDLE PE SADDLE PE SADDLE PE SADDLE PE SADDLE PE ACUTE [facility] FU NEED ORDER/TIMED DRAW BETWEEN 8A-9A 2 WK FU DYSPNEA DYSPNEA [facility] Preoperative evaluation to rule out surgical contraindication Carpal tunnel syndrome, right CKD (chronic kidney disease), stage III Essential hypertension Mixed hyperlipidemia Dyspnea on exertion CKD (chronic kidney disease), stage III Dyslipidemia Essential hypertension Morbid obesity with BMI of 45.0-49.9, adult Pulmonary emboli Dyspnea Elevated troponin Hypoxemia Respiratory failure Adrenal nodule Pulmonary emboli Adrenal nodule Pulmonary emboli Essential hypertension Chief Complaint EORDER FROM DR REGAN Hernandez 3 M FU/SURGERY CLEARANCE 6 M FU EORDERS SADDLE PE SADDLE PE SADDLE PE SADDLE PE SADDLE PE ACUTE [facility] FU NEED ORDER/TIMED DRAW BETWEEN 8A-9A 2 WK FU DYSPNEA DYSPNEA itching on hands and face,hairline Other specified disorders of adrenal gland Reason for Visit [facility] Preoperative evaluation to rule out surgical contraindication Carpal tunnel syndrome, right CKD (chronic kidney disease), stage III Essential hypertension Mixed hyperlipidemia Dyspnea on exertion CKD (chronic kidney disease), stage III Dyslipidemia Essential hypertension Morbid obesity with BMI of 45.0-49.9, adult Pulmonary emboli Dyspnea Elevated troponin Hypoxemia Respiratory failure Adrenal nodule Pulmonary emboli Adrenal nodule Pulmonary emboli Essential hypertension Itching Chief Complaint EORDER FROM DR SPEARS E 3 M FU/SURGERY CLEARANCE 6 M FU EORDERS SADDLE PE SADDLE PE SADDLE PE SADDLE PE SADDLE PE ACUTE [facility] FU NEED ORDER/TIMED DRAW BETWEEN 8A-9A 2 WK FU DYSPNEA DYSPNEA itching on hands and face,hairline Other specified disorders of adrenal gland PAIN- COPY PCP Reason for Visit [facility] Preoperative evaluation to rule out surgical contraindication Carpal tunnel syndrome, right CKD (chronic kidney disease), stage III Essential hypertension Mixed hyperlipidemia Dyspnea on exertion CKD (chronic kidney disease), stage III Dyslipidemia Essential hypertension Morbid obesity with BMI of 45.0-49.9, adult Pulmonary emboli Dyspnea Elevated troponin Hypoxemia Respiratory failure Adrenal nodule Pulmonary emboli Adrenal nodule Pulmonary emboli Essential hypertension Itching Chief Complaint Admit Date 2 M FU February 18, 2024 9 :42am PAIN- COPY PCP April 23, 2024 8 :02am PAIN- COPY PCP April 26, 2024 11:35am 3 M FU May 19, 2024 9:31 am Breast Cancer Screening June 10, 2024 10:07am Reason for Visit Admit Date Flu vaccine need February 18, 2024 9 :42am Asthma February 18, 2024 9 :42am Essential hypertension February 17 9:42am Lumbar radiculopathy February 18, 2024 9:42am Paroxysmal cough February 18, 2024 9 :42am Asthma May 19, 2024 9:31 am CKD (chronic kidney disease), stage III May 19, 2024 9:31am Dyslipidemia May 19, 2024 9:31 am Essential hypertension May 19, 2024 9 :31am Upper back pain on right side May 19, 2024 9:31am Chief Complaint Admit Date PAIN- COPY PCP April 23, 2024 8 :02am PAIN- COPY PCP April 26, 2024 11:35am 3 M FU May 19, 2024 9:31 am Breast Cancer Screening June 10, 2024 10:07am Reason for Visit Admit Date Asthma May 19, 2024 9:31 am CKD (chronic kidney disease), stage III May 19, 2024 9:31am Dyslipidemia May 19, 2024 9:31 am Essential hypertension May 19, 2024 9 :31am Upper back pain on right side May 19, 2024 9:31am Chief Complaint Admit Date Breast Cancer Screening June 10, 2024 10:07am 4 M FU September 23, 2024 12:5 7pm Additional Source Comments INFORMATION SOURCE (unrecogn ized section and content) DATE CREATED AUTHOR 09/03/2017 [facility] DATE CREATED AUTHOR AUTHOR'S ORGANIZ ATION 09/08/2017 [facility] [place] DATE CREATED AUTHOR AUTHOR'S ORGANIZ ATION 05/29/2023 [facility] DATE CREATED AUTHOR AUTHOR'S ORGANIZ ATION 09/27/2024 [facility] Goals (unrecognized section and content) Goals may be documented in a n alternate sectionGoals may be documented in an alternate sectionGoals may be documented in an alternate sectionGoals may be documented in an alternate sectionGoals may be documented in an alternate sectionGoals may be documented in an alternate sectionGoals may be documented in an alternate sectionGoals may be documented in an alternate sectionGoals may be documented in an alternate sectionGoals may be documented in an alternate sectionGoals may be documented in an alternate sectionGoals may be documented in an alternate sectionGoals may be documented in an alternate sectionGoals may be documented in an alternate sectionGoals may be documented in an alternate sectionGoals may be documented in an alternate sectionGoals may be documented in an alternate sectionGoals may be documented in an alternate sectionGoals may be documented in an alternate sectionGoals may be documented in an alternate section Care Teams (unrecognized sec tion and content) Team Status: Active Member Role Status Dates No Primary Care Physician Family Provider Active Dr. Moni Velásquez MD Primary Care Provider Active Team Status: Inactive Member Role Status Dates Dr. Moni Velásquez MD Primary Care Provider Active Dr. Andreina Cruz MD Attending Provider, Referring Provider Active Team Status: Inactive Member Role Status Dates Dr. Moni Velásquez MD Primary Care Provider Active Dr. Andreina Cruz MD Attending Provider Active Team Status: Active Member Role Status Dates Dr. Moni Velásquez MD Primary Care Provider Active Dr. Andreina Cruz MD Attending Provider Active Team Status: Inactive Member Role Status Dates Dr. Moni Velásquez MD Primary Care Provider, Refer ring Provider Active Richard Garcia BLOWER INSTALLER, BLOWER INSTALLER-C Attending Provider Active Team Status: Inactive Member Role Status Dates Dr. Moni Velásquez MD Primary Care Provider Active Richard Gracia BLOWER INSTALLER, BLOWER INSTALLER-C Attending Provider, Referring P rovider Active Compliance Advisor Relationship Specialty Start Date End Date Moni Velásquez MD [address] [place] [address] PCP - General Internal Medicine 07/04/20 Team Status: Inactive Member Role Status Dates Dr. Moni Velásquez MD Primary Care P rovider, Attending Provider, Referring Provider Active Team Status: Active Member Role Status Dates Dr. Moni Velásquez MD Primary Care P rovider, Referring Provider, Other Provider Active Dr. Issac Huffman DO Attending Provider Active Team Status: Active Member Role Status Dates Dr. Moni Velásquez MD Primary Care P rovider, Attending Provider, Referring Provider Active Compliance Advisor Relationship Specialty Start Date End Date Moni Velásquez MD [address] [place] [address] PCP - General Internal Medicine 07/04/20 Compliance Advisor Relationship Specialty Start Date End Date Moni Velásquez MD [address] [place] [address] PCP - General Internal Medicine 07/04/20 Compliance Advisor Relationship Specialty Start Date End Date Moni Velásquez MD [address] [place] [address] PCP - General Internal Medicine 07/04/20 Team Status: Inactive Member Role Status Dates Dr. Moni Velásquez MD Primary Care Provider, Other Provider Active Dr. Andreina Cruz MD Attending Provider, Referring Provider Active Compliance Advisor Relationship Specialty Start Date End Date Moni Velásquez MD [address] [facility] [address] [place] [id number] PCP - General Internal Medicine 07/04/20 Compliance Advisor Relationship Specialty Start Date End Date Moni Velásquez MD [address] [place] [phone] PCP - General Internal Medicine 07/04/20 Team Status: Inactive Member Role Status Dates Dr. Moni Velásquez MD Primary Care Provider, Refer ring Provider Active Dr. Mati Mccann MD Attending Provider Active Team Status: Active Member Role Status Dates Dr. Moni Velásquez MD Primary Care Provider Active Dr. Mati Mccann MD Attending Provider, Referring Pr ovider Active Team Status: Active Member Role Status Dates Dr. Moni Velásquez MD Primary Care Provider Active Dr. Arlene Acevedo DO Emergency Provider Active Dr. Thor Alfred MD Admit Provider, Attending Provider Active Team Status: Active Member Role Status Dates Dr. Moni Velásquez MD Primary Care Provider Active Dr. Arlene Acevedo DO Emergency Provider Active Dr. Thor Alfred MD Admit Provi cristhian, Attending Provider, Other Provider Active Team Status: Active Member Role Status Dates Dr. Moni Velásquez MD Primary Care Provider Active Dr. Arlene Acevedo DO Emergency Provider Active Dr. Thor Alfred MD Admit Provider, Other Pro vider Active Dr. Rickie Hale MD Attending Provider, Other Provid er Active Team Status: Active Member Role Status Dates Dr. Moni Velásquez MD Primary Care Provider Active Dr. Brandon Esposito MD Attending Provider Active Team Status: Inactive Member Role Status Dates Dr. Moni Velásquez MD Primary Care Provider Active Dr. Mati Mccann MD Attending Provider, Referring Pr ovider Active Team Status: Active Member Role Status Dates Dr. Moni Velásquez MD Primary Care Provider Active Dr. Arlene Acevedo DO Emergency Provider Active Dr. Thor Alfred MD Admit Provider, Other Pro vider Active Dr. Rickie Hale MD Attending Provider Active Team Status: Inactive Member Role Status Dates Dr. Moni Velásquez MD Primary Care Provider Active Dr. Arlene Acevedo DO Emergency Provider Active Dr. Thor Alfred MD Admit Provider, Other Pro vider Active Dr. Rickie Hale MD Attending Provider Active Compliance Advisor Relationship Specialty Start Date End Date Moni Velásquez MD [address] [facility] [address] [place] [id number] PCP - General Internal Medicine 07/04/20 Team Status: Inactive Member Role Status Dates Dr. Moni Velásquez MD Primary Care Provider, Refer ring Provider Active ALEXIS Connelly Attending Provider Active Team Status: Active Member Role Status Dates Dr. Moni Velásquez MD Primary Care Provider Active Dr. Mati Mccann MD Referring Provider, Other Provid er Active Dr. Lolis Walters MD Attending Provider Activ e Team Status: Inactive Member Role Status Dates Dr. Moni Velásquez MD Primary Care Provider Active Freddie Fraire NP-C Attending Provider, Referring Pro vider Active Team Status: Active Member Role Status Dates Dr. Moni Velásquez MD Primary Care Provider Active Freddie Fraire NP-[place] Attending Provider, Referring Pro vider Active Team Status: Inactive Member Role Status Dates Dr. Moni Velásquez MD Primary Care Provider Active ALEXIS Connelly Attending Provider Active Team Status: Active Member Role Status Dates Dr. Moni Velásquez MD Primary Care Provider Active Freddie Fraire NP-[place] Attending Provider Active Team Status: Active Member Role Status Dates Dr. Moni Velásquez MD Primary Care Provider Active Dr. Andreina Cruz MD Attending Provider, Referring Provider Active Compliance Advisor Relationship Specialty Start Date End Date Moni Velásquez MD [address] [facility] [address] [place] [id number] PCP - General Internal Medicine 07/04/20 Team Status: Active Member Role Status Dates Dr. Moni Velásquez MD Primary Care Provider Active Team Status: Inactive Member Role Status Dates Dr. Moni Velásquez MD Primary Care Provider Active Start: February 18, 2024 End: February 18, 2024 Dr. Moni Velásquez MD Attending Provider Active Start: February 18, 2024 End: February 18, 2024 Dr. Moni Velásquez MD Referring Provider Active Start: February 18, 2024 End: February 18, 2024 Team Status: Inactive Member Role Status Dates Dr. Moni Velásquez MD Primary Care Provider Active Start: April 23, 2024 End: April 23, 2024 Dr. Andreina Cruz MD Attending Provider Active Start: April 23, 2024 End: April 23, 2024 Dr. Andreina Cruz MD Referring Provider Active Start: April 23, 2024 End: April 23, 2024 Team Status: Inactive Member Role Status Dates Dr. Moni Velásquez MD Primary Care Provider Active Start: April 26, 2024 End: April 26, 2024 Dr. Andreina Cruz MD Attending Provider Active Start: April 26, 2024 End: April 26, 2024 Dr. Andreina Cruz MD Referring Provider Active Start: April 26, 2024 End: April 26, 2024 Team Status: Inactive Member Role Status Dates Dr. Moni Velásquez MD Primary Care Provider Active Start: May 19, 2024 End: May 19, 2024 Dr. Moni Velásquez MD Attending Provider Active Start: May 19, 2024 End: May 19, 2024 Dr. Moni Velásquez MD Referring Provider Active Start: May 19, 2024 End: May 19, 2024 Team Status: Inactive Member Role Status Dates Dr. Moni Velásquez MD Primary Care Provider Active Start: June 10, 2024 End: June 10, 2024 Dr. Moni Velásquez MD Attending Provider Active Start: June 10, 2024 End: June 10, 2024 Dr. Moni Velásquez MD Referring Provider Active Start: June 10, 2024 End: June 10, 2024 Team Status: Inactive Member Role Status Dates Dr. Moni Velásquez MD Primary Care Provider Active Start: July 16, 2024 End: July 16, 2024 Dr. Andreina Cruz MD Attending Provider Active Start: July 16, 2024 End: July 16, 2024 Dr. Andreina Cruz MD Referring Provider Active Start: July 16, 2024 End: July 16, 2024 Team Status: Active Member Role/Relationship Status Dates Dr. Moni Velásquez MD Primary Care Provider Active Team Status: Inactive Member Role/Relationship Status Dates Dr. Moni Velásquez MD Primary Care Provider Active Start: June 10, 2024 End: June 10, 2024 Dr. Moni Velásquez MD Attending Provider Active Start: June 10, 2024 End: June 10, 2024 Dr. Moni Velásquez MD Referring Provider Active Start: June 10, 2024 End: June 10, 2024 Team Status: Inactive Member Role/Relationship Status Dates Dr. Moni Velásquez MD Primary Care Provider Active Start: July 16, 2024 End: July 16, 2024 Dr. Andreina Cruz MD Attending Provider Active Start: July 16, 2024 End: July 16, 2024 Dr. Andreina Cruz MD Referring Provider Active Start: July 16, 2024 End: July 16, 2024 Team Status: Inactive Member Role/Relationship Status Dates Dr. Moni Velásquez MD Primary Care Provider Active Start: September 23, 2024 End: September 23, 2024 Dr. Moni Velásquez MD Attending Provider Active Start: September 23, 2024 End: September 23, 2024 Dr. Moni Velásquez MD Referring Provider Active Start: September 23, 2024 End: September 23, 2024 Source Comments (unrecognize d section and content) In the event this informatio n is protected by the [facility] Confidentiality of Alcohol and Drug Abuse Patient Records regulations: The Federal rules restrict any use of the information to criminally investigate or prosecute any alcohol or drug abuse patient.[facility] the event this information is protected by the Federal Confidentiality of Alcohol and Drug Abuse Patient Records regulations: The Federal rules restrict any use of the information to criminally investigate or prosecute any alcohol or drug abuse patient.[facility] the event this information is protected by the Federal Confidentiality of Alcohol and Drug Abuse Patient Records regulations: The Federal rules restrict any use of the information to criminally investigate or prosecute any alcohol or drug abuse patient.[facility] the event this information is protected by the Federal Confidentiality of Alcohol and Drug Abuse Patient Records regulations: The Federal rules restrict any use of the information to criminally investigate or prosecute any alcohol or drug abuse patient.[facility] the event this information is protected by the Federal Confidentiality of Alcohol and Drug Abuse Patient Records regulations: The Federal rules restrict any use of the information to criminally investigate or prosecute any alcohol or drug abuse patient.[facility] the event this information is protected by the Federal Confidentiality of Alcohol and Drug Abuse Patient Records regulations: The Federal rules restrict any use of the information to criminally investigate or prosecute any alcohol or drug abuse patient.[facility] the event this information is protected by the Federal Confidentiality of Alcohol and Drug Abuse Patient Records regulations: The Federal rules restrict any use of the information to criminally investigate or prosecute any alcohol or drug abuse patient.[facility] the event this information is protected by the Federal Confidentiality of Alcohol and Drug Abuse Patient Records regulations: The Federal rules restrict any use of the information to criminally investigate or prosecute any alcohol or drug abuse patient.[facility] the event this information is protected by the Federal Confidentiality of Alcohol and Drug Abuse Patient Records regulations: The Federal rules restrict any use of the information to criminally investigate or prosecute any alcohol or drug abuse patient.[facility] Reason for Visit (unrecogniz ed section and content) Reason Comments Appointment Reason Comments Corneal Edema Follow Up Reason Comments Patient Question Reason Comments Post-op (Ophthalmology) Right Eye Reason Comments New Patient FOR RECORDS PERTAINING TO PATIENTS WHO ARE [...] BE BASED ON THE PRIMARY CLINICAL RECORDS. [employer] provides no warranty or guarantee of the accuracy or completeness of information in this document.
[2024-10-15 10:25] LABS: Hematocrit 40.7 % (37-47); Hemoglobin 12.8 g/dL (12.0-15.0); Immature Granulocytes Count 0.010 X10^3/uL (0.0-0.0); Mean Corp Hgb Conc 31.4 g/dL (32-36); Mean Corpuscular Volume 91.9 fL (81-99); Mean Platelet Vol. 10.3 fl (6.2-12.0); NRBC Flagged by Analyzer 0 % (0-5); Platelet Count 221 K/mm3 (150-450); RBC Distribution Width CV 15.1 % (11.6-14.6); RBC Distribution Width SD 50.4 fl (35.1-43.9); Red Blood Count 4.43 M/mm3 (4.2-5.4); White Blood Count 5.5 K/mm3 (4.4-11.0)
[2024-10-15 11:24] LABS: AST(SGOT) 22 U/L (<=31); Alanine Aminotransfer ALT/SGPT 15 U/L (<=34); Albumin, Serum 3.7 g/dL (3.4-4.8); Alkaline Phosphatase 75 U/L (35-104); Anion Gap 13 (5-15); BUN 23 mg/dL (4-19); BUN/Creat Ratio 19.7 RATIO (10-20); Calcium,Total 10.0 mg/dL (7.6-11.0); Carbon Dioxide 21.3 mmol/L (21.0-32.0); Chloride 106 mmol/L (98-108); Cholesterol 200 mg/dL (<=200); Globulin 3.0 g/dL (2.2-4.2); Glucose 103 mg/dL (70-99); Low Density Lipoprotein Calc. 115 mg/dL; Potassium 4.0 mmol/L (3.3-5.1); Triglycerides 202 mg/dL; Very Low Density Lipoprotein 40 mg/dL (5-40); cholesterol:hdl ratio screen 4.45
== END | disposition home or self-care (01) ==
LOC: MTLAB 07:46
PROVIDERS: PCP Internal Medicine; Referring Provider Internal Medicine; Visit Provider Internal Medicine Rheumatology
DX: M05.70 Rheumatoid arthritis with rheumatoid factor of unspecified site without organ or systems involvement (principal); R76.8 Other specified abnormal immunological findings in serum; Z79.899 Other long term (current) drug therapy
CPT/HCPCS: 36415; 80053; 80061; 85025

== ENCOUNTER → 2025-01-03 | Outpatient (CLI) | payer MEDICARE, SELFPAY ==
--- OUTSIDE RECORDS SUMMARY | 2025-01-03 07:09 | XMS RPT_ITS | CCD ---
Author Organization [facility] Care Team Providers Care Chemical Manager Name Role Phone Santos, Lucy L. Unavailable Unavailable Santos, Lucy L. Unavailable Unavailable Santos, Lucy L. Unavailable Unavailable Santos, Lucy L. Unavailable Unavailable Santos, Lucy L. Unavailable Unavailable Santos, Lucy L. Unavailable Unavailable Santos, Lucy L. Unavailable Unavailable Santos, Lucy L. Unavailable Unavailable Dr. Moni Velásquez Primary Care Provider [phone] Dr. Moni Velásquez Referring Provider [phone] [facility] Provider Unavailab Dr. Brian Cerrato [...] Dr. Moni Velásquez Referring Provider [phone] Venancio TESTER EQUIPMENT, TESTER EQUIPMENT-C Richard Attending Provider Dr. Moni Velásquez Attending Provider [phone] Didier, Dr. Hager Other Provider [phone] Dr. Issac Huffman Attending Provider Didier, Dr. Hager Primary Care Provider [phone] Didier, Dr. Hager Attending Provider [phone] Didier, Dr. Hager Referring Provider [phone] Venancio TESTER EQUIPMENT, TESTER EQUIPMENT-C Richard Attending Provider Dr. Moni Velásquez Other [...] 0) Dr. Andreina Cruz MD Attending Provider Anthony HERNANDEZ, Dr. Hdz Referring Provider Didier HERNANDEZ, Dr. Hager Primary Care Provider Lila HERNANDEZ, Dr. Dill Attending Provider Didier HERNANDEZ, Dr. Hager Attending Provider Didier HERNANDEZ, Dr. Hager Referring Provider [phone] Lila HERNANDEZ, Dr. Dill Attending Provider Didier HERNANDEZ, Dr. Hager Primary Care Physician Lila HERNANDEZ, Dr. Dill Attending Physician Didier HERNANDEZ, Dr. Hager Attending Physician Anthony HERNANDEZ, Dr. Hdz Attending Physician Oleghe, Efewongbe Primary Care Unavailable Andreina Cruz Referring Unavailable Andreina Cruz Attending Unavailable Oleghe, Efewongbe Primary Care Unavailable ySed Wood Attending Unavailable Oleghe, Efewongbe Primary Care Unavailable Andreina Cruz Attending Unavailable Oleghe, Efewongbe Referring Unavailable Bo Fitzgerald Attending Unavailable Bo Fitzgerald Referring Unavailable Oleghe, Efewongbe Primary Care Unavailable Oleghe, Efewongbe Primary Care Unavailable Andreina Cruz Attending Unavailable Andreina Cruz Referring Unavailable Oleghe, Efewongbe Primary Care Unavailable Oleghe, Efewongbe Attending Unavailable Oleghe, Efewongbe Referring Unavailable Oleghe, Efewongbe Attending Unavailable Oleghe, Efewongbe Primary Care Unavailable Oleghe, Efewongbe Referring Unavailable Oleghe, Efewongbe Attending Unavailable Oleghe, Efewongbe Primary Care Unavailable Oleghe, Efewongbe Referring Unavailable Oleghe, Efewongbe Primary Care Unavailable Oleghe, Efewongbe Attending Unavailable Oleghe, Efewongbe Referring Unavailable Oleghe, Efewongbe Primary Care Unavailable Aniyah Sharp Attending Unavailable Oleghe, Efewongbe Referring Unavailable Oleghe, Efewongbe Primary Care Unavailable Vellanki, Andreina Attending Unavailable Andreina Cruz Referring Unavailable ReganmaryKjalanaongkillian Primary Care Unavailable Andreina Cruz Attending Unavailable Andreina Cruz Referring Unavailable Izaiahzay Wonglindsey Primary Care Unavailable Kj Velásquezlisabe Attending Unavailable Izaiahzay Lowellbe Referring Unavailable Allergies Allergy Classification Reported Allergen(s) Allergy Type Date of Onset Reaction(s) Facility (20 sources) Sulfonamides (Antibiotic); Translations: [SULFA (SULFONAMIDE ANTIBIOTICS)] Allergy to substance 06-07-19 18 Unknown [facility] (20 sources) amLODIPine; Translations: [AMLODIPINE] Drug Allergy 08-08-19 [facility] (20 sources) Hydroxychloroquine; Translations: [HYDROXYCHLOROQUINE] Drug Allergy 07-05-19 23 [facility] (9 sources) Sulfonamides (Antibiotic) Drug Intolerance 06-07-19 18 [facility] (6 sources) traMADol Drug Allergy 05-20-19 25 Itching [facility] (1 source) amLODIPine Drug Allergy 12-23-19 [facility] (1 source) Hydroxychloroquine Drug Allergy 12-23-19 [facility] (1 source) Sulfonamides (Antibiotic) Drug allergy (disorder) 12-23-19 [facility] (1 source) traMADol Drug Allergy 12-23-19 [facility] Medications Current Medications Medication Drug Class(es) Dates Sig (Normalized) Sig (Original) Blood Pressure Monitor (6 sources) Start: 04-17-2023 Blood Pressure Monitor Active 0 .ROUTE .MEDSUPPLY April 17, 2023 12:00am As directed Blood Pressure Monitor kit (6 sources) Start: 04-17-2023 Blood Pressure Monitor kit Active 0 .ROUTE .MEDSUPPLY 1 April 17, 2023 1:00am As directed Start: 04-17-2023 Blood Pressure Monitor kit Active 0 .ROUTE .MEDSUPPLY April 17, 2023 1:00am As directed cholecalciferol 0.025 mg oral capsule (20 sources) Vitamin D Start: 12-17-2023 take 1 capsule by mouth once daily Cholecalciferol (Vitamin D3) 25 mcg (1,000 unit) capsule Active 25 ug PO daily December 17, 2023 12:00am Complies with drug therapy Start: 12-28-2019 cholecalcifero l (VITAMIN D3) 1,000 unit tab tablet Take by mouth. 0 12/28/2019 Active Start: 12-28-2019 End: 06-05-2023 take 1 tablet by mouth once daily Cholecalciferol (Vitamin D3) 1,000 UNIT tablet Discontinued 1000 U PO DAILY December 28, 2019 12:00am June 05, 2023 11:12am Comment on above: Take by mouth. Take 1,000 Units by mouth once daily. fenofibrate 54 mg oral tablet (20 sources) Peroxisome Proliferator Receptor alpha Agonist Start: 3 End: take 1 tablet by mouth once daily Fenofibrate 54 mg tablet Active 54 mg PO DAILY 90 3 December 22, 2024 8:16am Complies with drug therapy Comment on above: Take 54 mg by mouth once daily. Fluticasone-Umeclidi n-Vilanter (6 sources) Anticholinergic, Corticosteroid, beta2-Adrenergic Agonist Start: Fluticasone-Umeclidi n-Vilanter (Trelegy Ellipta) 100-62.5-25 mcg blister with device Active 1 NMA INHALATION Q24H 60 2 February 18, 2024 1:00am Complies with drug therapy Start: 02-18-2024 Fluticasone-Um eclidin-Vilanter (Trelegy Ellipta) 100-62.5-25 mcg blister with device Active 1 NMA INHALATION Q24H 60 2 February 18, 2024 1:00am Start: 02-18-2024 Fluticasone-Um eclidin-Vilanter (Trelegy Ellipta) 100-62.5-25 mcg blister with device Active 1 NMA INHALATION Q24H 60 February 18, 2024 1:00am gabapentin 100 mg oral capsule (6 sources) Anti-epileptic Agent Start: 05-19-2024 take 1 capsule by mouth once daily Gabapentin 100 mg capsule Active 100 mg PO daily May 19, 2024 1:00am Complies with drug therapy Handicap Placard (20 sources) Start: 11-21-[address] Active 0 .ROUTE .MEDSUPPLY 1 0 November 21, 2022 12:00am Other reduced mobility reduced mobility As directed, length of time 3 years Start: 11-21-[address] Active 0 .ROUTE .MEDSUPPLY November 20, 2022 11:00pm As directed, length of time 3 years Start: 11-21-[address] Active 0 .ROUTE .MEDSUPPLY November 21, 2022 12:00am As directed, length of time 3 years Start: 12-20-[address] Active 0 .ROUTE .MEDSUPPLY December 20, 2019 8:46am As directed, length of time 3 years Start: 12-20-[address] Active 0 .ROUTE .MEDSUPPLY 1 December 20, 2019 12:00am Other reduced mobility reduced mobility As directed, length of time 3 years Start: 12-20-[address] Active 0 .ROUTE .MEDSUPPLY December 19, 2019 11:00pm As directed, length of time 3 years Start: 12-20-[address] Active 0 .ROUTE .MEDSUPPLY December 20, 2019 12:00am As directed, length of time 3 years leflunomide 20 mg oral tablet (20 sources) Antirheumatic Agent Start: 04-03-2023 take 1 tablet by mouth once daily Leflunomide 20 mg tablet Active 20 mg PO DAILY April 03, 2023 1:00am Complies with drug therapy Start: 11-13-2022 End: 02-19-2023 Leflunomide 20 mg [...] once daily. montelukast 10 mg oral tablet (19 sources) Leukotriene Receptor Antagonist Start: End: take 1 tablet by mouth once daily in the evening Montelukast (Singulair) 10 mg tablet Active 10 mg PO EVERY EVENING 90 2 November 18, 2024 7:43am Complies with drug therapy Start: 11-24-2023 End: 12-17-2023 take 1 tablet by mouth once daily in the evening Montelukast (Singulair) 10 mg tablet Discontinued 10 mg PO EVERY EVENING 30 2 November 24, 2023 12:00am December 17, 2023 3:40pm omeprazole 40 mg delayed release oral capsule (19 sources) Proton Pump Inhibitor Start: 12-22-2024 take 1 capsule by mouth once daily Omeprazole 40 mg capsule,delayed release(DR/EC) Active 40 mg PO daily 90 3 December 22, 2024 12:00am Complies with drug therapy Start: 11-13-2022 End: 11-20-2022 take 1 capsule by mouth once daily 30 minutes before breakfast Omeprazole 40 mg capsule,delayed release(DR/EC) Discontinued 40 mg PO DAILY 90 November 13, 2022 12:00am November 20, 2022 9:29am Take 30 minutes before breakfast prednisoLONE acetate 10 mg/ml ophthalmic suspension (20 sources) Corticosteroid Start: 06-05-2023 Prednisolone A cetate 1 % drops,suspension Active 1 NMA OPHTHALMIC ONCE June 05, 2023 11:12am right eye Complies with drug therapy Start: 04-03-2023 End: 06-05-2023 Prednisolone Acetate 1 [...] 01, 2020 1:00am Vibegron (20 sources) Start: 10-19-2024 take 1 tablet by belen th once daily Vibegron (Gemtesa) 75 mg tablet Active 75 mg PO DAILY 90 90 October 19, 2024 11:02am Complies with drug therapy Start: 10-19-2024 take 1 tablet by belen th once daily Vibegron (Gemtesa) 75 mg tablet Active 75 mg PO DAILY 90 90 October 19, 2024 11:02am Start: 01-31-2021 take 1 tablet by belen th once daily Vibegron (Gemtesa) 75 mg tablet Active 75 MG PO DAILY January 31, 2021 11:15am Start: 01-31-2021 End: 10-19-2024 take 1 tablet by mouth once daily Vibegron (Gemtesa) 75 mg tablet Discontinued 75 mg PO DAILY January 31, 2021 1:00am October 19, 2024 11:03am Start: 01-31-2021 take 1 tablet by belen [...] oral capsule (20 sources) Start: 08-22-2023 End: 09-29-2024 take 2 capsules by mouth every eight hours as needed for pain Acetaminophen 500 mg capsule Discontinued 1000 mg PO EVERY 8 HOURS NEEDED as needed for fever or pain 180 1 June 08, 2024 1:51pm September 29, 2024 9:52pm Start: 2020 acetaminophen 325 mg cap Take by mouth. 0 2020 Active Start: 2020 End: 08-22-2023 take 1 capsule by mouth once as needed for pain Acetaminophen (Tylenol) 325 mg capsule Discontinued 325 mg PO ONCE as needed for fever or pain 2020 1:00am August 22, 2023 10:26am Comment on above: Take by mouth. [id number] 200 actuat albuterol 0.09 mg/actuat metered dose [...] tablet Discontinued 5 mg PO DAILY 90 July 04, 2022 8:48am July 31, 2022 [...] mg / clavulanate 125 mg oral tablet (6 sources) Penicillin-class Antibacterial Start: End: Amoxicillin-Pot Clavulanate 875-125 mg tablet Discontinued 1 {tbl} PO TWICE A DAY 14 0 October 16, 2023 12:00am November 24, 2023 9:03am apixaban 5 mg oral tablet (20 sources) Factor Xa Inhibitor Start: End: take 1 tablet by mouth twice daily Apixaban 5 mg tablet Discontinued 5 mg PO TWICE A DAY 180 90 0 June 08, 2024 1:51pm September 05, 2024 12:00am August 20, 2024 1:14pm Pulmonary embolism Other pulmonary embolism without acute [...] a day. atenolol 50 mg oral tablet (20 sources) beta-Adrenergic Kaden Start: 12-27-2021 End: 01-07-2024 take 1 tablet by mouth once daily Atenolol 50 mg tablet Discontinued 50 mg PO DAILY 90 3 October 21, 2022 6:08pm January 07, 2024 12:00pm Start: 07-09-2021 End: 12-27-2021 Atenolol 100 mg tablet Disco ntinued 50 mg PO DAILY 90 July 09, 2021 10:00am December 27, 2021 8:48am Start: 07-09-2021 End: 12-27-2021 take 50 mg by mouth once daily Atenolol Discontinued 5 0 MG PO DAILY 90 July 09, 2021 9:00am December 27, 2021 [...] on above: Take 2 tablets by [facility] once daily. benzonatate 100 mg oral capsule (6 sources) Non-narcotic Antitussive Start: 10-16-2023 End: 12-24-2023 [...] needed for skin April 12, 2019 1:00am Complies with drug therapy Comment on above: Apply to affected ar ea. Budesonide-Formoterol (6 sources) Corticosteroid, beta2-Adrenergic Agonist Start: 11-24-2023 End: [...] 2021 10:44am Wear daily circaid wrap XL (6 sources) Start: 03-29-2021 End: 06-22-2021 circaid wrap XL Discontinued 0 .Route .MEDSUPPLY 2 0 March 29, 2021 1:00am June 22, 2021 10:44am Wear daily Start: 03-29-2021 End: 06-22-2021 circaid wrap XL Discontinued 0 .Route .MEDSUPPLY 2 March 29, 2021 1:00am June 22, 2021 10:44am Wear daily dexamethasone 1 mg oral tablet (12 sources) Corticosteroid Start: 04-17-2023 End: 05-08-2023 take [...] foot; for foot includes sole/toes/top of foot Fluad Quad (65yr up)(PF) 60 mcg (15 [...] Comment on above: Take 1 tablet by [facility] once daily. ganciclovir 0.0015 mg/mg ophthalmic gel [...] (20 sources) Thiazide Diuretic Start: 07-31-2022 End: 12-15-2024 take 1 tablet by mouth once daily [...] PKG DIR moxifloxacin 5 mg/ml ophthalmic solution (17 sources) Quinolone Antimicrobial Start: 04-03-2023 End: 04-06-2023 [...] eye four times daily for 14 days. ondansetron 4 mg disintegrating oral tablet (6 sources) Serotonin-3 Receptor Antagonist Start: 4 End: 5 take 1 tablet by mouth every eight hours as needed for nausea Ondansetron 4 mg tablet,disintegratin g Discontinued 4 mg PO EVERY 8 HOURS NEEDED as needed for Nausea 10 0 January 10, 2024 12:00am May 19, 2024 10:43am oxyCODONE hydrochloride 5 mg oral tablet (13 sources) Opioid Agonist Start: 4 End: 4 take 1 tablet by mouth every four hours as needed for pain Oxycodone 5 mg Tablet Discontinued 5 mg PO EVERY 4 HOURS NEEDED as needed for Pain Score 4-10 20 5 0 April 09, 2023 May 08, 2023 3:34pm Pulmonary embolism Other pulmonary embolism without acute cor pulmonale polyethylene glycol 400 2.5 mg/ml ophthalmic solution (20 sources) Start: End: Polyethylene Glycol 400 (Blink Gel Tears) 0.25 % drops,gel Discontinued NMA OPHTHALMIC January 31, 2021 1:00am April 06, 2023 12:21pm Start: 01-31-2021 End: 04-06-2023 Polyethylene Glycol 400 (Bli nk Gel Tears) 0.25 % drops,gel Discontinued DRP OPHTHALMIC January 31, 2021 12:00am April 06, 2023 11:21am predniSONE 20 mg oral tablet (6 sources) Start: 10-16-2023 End: 11-24-2023 take 2 [...] belen th daily at bedtime. sodium chloride 0.774336 meq/mg ophthalmic ointment (8 sources) Start: 12-04-2022 sodium chloride (RODRIGUE 128) 5 % ophthalmic ointment Use 1 application in the right eye daily at bedtime. 3.5 g 5 12/04/2022 Active Comment on above: Use 1 application in the right eye daily at bedtime. tiZANidine 4 mg oral capsule (6 sources) Central alpha-2 Adrenergic Agonist Start: 08-22-2023 [...] End: 05-01-2020 trumeric Discontinued PO 0 N ov2019 1:00am May 01, 2020 3:31pm Start: 2020 End: 05-01-2020 trumeric Discontinued PO Nov emb2019 12:00am May 01, 2020 2:31pm Start: 2020 End: 05-01-2020 trumeric Discontinued PO Nov ember 2019 1:00am May 01, 2020 3:31pm TURMERIC [...] (20 sources) Angiotensin 2 Receptor Kaden Start: 9 End: take 1 tablet by mouth once daily Valsartan 320 mg tablet Discontinued 320 mg PO DAILY 90 November 11, 2023 12:40pm December 17, 2023 3:55pm Comment on above: Take 1 tablet by belen th once daily. Problems Active Problems Problem Classification Problem Date Documented Da te Episodic/Chronic Asthma (12 sources) Asthma; Translations: [Unspecified asthma, uncomplicated] 11-24-2023 Chronic Cardiac dysrhythmias (20 sources) Bradycardia; Translations: [Bradycardia, unspecified] Episodic Cataract (3 sources) Artificial lens present; Translations: [Presence of intraocular lens] 01-01-2023 Chronic Chronic kidney disease (20 sources) Chronic kidney disease stage 3; Translations: [Stage 3 chronic kidney disease] 09-06-2019 Chronic Disorders of lipid metabolism (20 sources) Mixed hyperlipidemia; Translations: [Mixed hyperlipidemia] Chronic Esophageal disorders (20 sources) Gastroesophageal reflux disease; Translations: [Gastro-esophageal reflux disease without esophagitis] 11-13-2022 Chronic Essential hypertension (20 sources) Essential hypertension; Translations: [Essential (primary) hypertension] Chronic Genitourinary symptoms and ill-defined conditions (13 sources) Incontinence; Translations: [Mixed incontinence] Onset: 5 10-19-2024 Chronic Gout and other crystal arthropathies (9 sources) Gout; Translations: [Gout, unspecified] Onset: 9 04-07-2018 Chronic Immunizations and screening for infectious disease (8 sources) Needs influenza immunization; Translations: [Encounter for immunization] Onset: 5 02-18-2024 Episodic Menopausal disorders (7 sources) Atrophic vaginitis; Translations: [Postmenopausal atrophic vaginitis] Onset: 5 10-12-2024 Chronic Osteoarthritis (20 sources) Osteoarthritis; Translations: [Unspecified osteoarthritis, unspecified site] Chronic Other aftercare (12 sources) Post-discharge follow-up; Translations: [Encounter for follow-up [...] disorders] 06-06-2017 Episodic Other connective tissue disease (6 sources) Muscle pain; Translations: [Myalgia, other site] 08-22-2023 Episodic Other connective tissue disease (1 source) Pain in both feet; Translations: [Pain in right foot] 03-12-2023 Episodic Other connective tissue disease (1 source) Pain in right foot; Translations: [Pain in right foot] 03-12-2023 Episodic Other diseases of bladder and urethra (6 sources) Overactive bladder; Translations: [Overactive bladder] 10-12-2024 Chronic Other diseases of bladder and urethra (1 source) Overactive bladder; Translations: [Overactive bladder] Onset: Chronic Other endocrine disorders (20 sources) Adrenal mass; Translations: [Other specified disorders of adrenal gland] Onset: 7 06-06-2017 Chronic Comment on above: 18mm cm in 2023 Other endocrine disorders (12 sources) Other specified disorders of adrenal gland; Translations: [Other specified disorders of adrenal glands] 04-17-2023 Chronic Other eye disorders (2 sources) Secondary corneal edema; Translations: [Secondary corneal edema, right eye] 01-01-2023 Episodic Other eye disorders (3 sources) Scar of cornea of right eye; Translations: [Unspecified corneal scar and opacity] 01-01-2023 Episodic Other female genital disorders (3 sources) Deep pain on intercourse; Translations: [Deep dyspareunia] 10-12-2024 Chronic Other gastrointestinal disorders (3 sources) Incomplete passage of stool; Translations: [Incomplete defecation] 10-12-2024 Episodic Other inflammatory condition of skin (10 sources) Itching ; Translations: [Pruritus, unspecified] 05-08-2023 Episodic Other inflammatory condition of skin (10 sources) Pruritus, unspecified; Translations: [Unspecified pruritic disorder] 05-08-2023 Episodic Other lower respiratory disease (20 sources) Dyspnea; Translations: [Dyspnea, unspecified] Onset: 7 04-06-2023 Episodic Other lower respiratory disease (15 sources) Dyspnea on exertion; Translations: [Other forms of dyspnea] 04-03-2023 Episodic Other lower respiratory disease (15 sources) Hypoxemia; Translations: [Hypoxemia] 04-06-2023 Episodic Other lower respiratory disease (9 sources) Other forms of dyspnea; Translations: [Other respiratory abnormalities] 04-03-2023 Episodic Other lower respiratory disease (9 sources) Hypoxemia; Translations: [Hypoxemia] 04-06-2023 Episodic Other lower respiratory disease (7 sources) Paroxysmal cough; Translations: [Paroxysmal cough] 12-24-2023 Episodic Other nervous system disorders (6 sources) Carpal tunnel syndrome; Translations: [Carpal tunnel syndrome, right upper limb] 11-13-2022 Chronic Other nervous system disorders (13 sources) Carpal tunnel syndrome, right upper limb; Translations: [Carpal tunnel syndrome] 11-13-2022 Chronic Other nervous system disorders (12 sources) Carpal tunnel syndrome of right wrist; Translations: [Carpal tunnel syndrome, right upper limb] 04-11-2023 Chronic Other non-traumatic joint disorders (6 sources) Hip pain; Translations: [Pain in left hip] 09-22-2023 Episodic Other nutritional; endocrine; and metabolic disorders (20 sources) Body mass index 40+ - severely obese; Translations: [Morbid (severe) obesity due to excess calories] 01-31-2021 Chronic Other nutritional; endocrine; and metabolic disorders (9 sources) Morbid (severe) obesity due to excess calories; Translations: [Morbid obesity] 04-03-2023 Chronic Other nutritional; endocrine; and metabolic disorders (6 sources) Hypercalcemia; Translations: [Hypercalcemia] 08-22-2023 Chronic Pulmonary heart disease (1 source) Saddle embolus of pulmonary artery; 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] 04-25-2023 Chronic Pulmonary heart disease (20 sources) Pulmonary embolism; Translations: [Other pulmonary embolism without acute cor pulmonale] 04-06-2023 Episodic Residual codes; unclassified (6 sources) Bilateral lower limb edema; Translations: [Localized edema] 08-22-2023 Episodic Respiratory failure; insufficiency; arrest (adult) (20 sources) Respiratory failure; Translations: [Respiratory failure, unspecified, unspecified whether with hypoxia or hypercapnia] 01-21-2024 Episodic Rheumatoid arthritis and related disease (7 sources) Rheumatoid arthritis; Translations: [Rheumatoid arthritis, unspecified] Onset: 09-23-2024 Chronic Thyroid disorders (9 sources) Thyroid nodule; Translations: [Nontoxic single thyroid nodule] Onset: 7 06-06-2017 Chronic Unclassified (1 source) Unknown / UNK(Unknown) Onset: 7 Past or Other Problems Problem Classification Problem Date Documented Da te Episodic/Chronic Other injuries and conditions due to external causes (1 source) Encounter for examination and observation following other accident; Translations: [Encounter for examination and observation following other accident] Onset: 05-19-2024 Episodic Other screening for suspected conditions (not mental disorders or infectious disease) (20 sources) Raised cardiac enzyme or marker; Translations: [Other specified abnormal findings of blood chemistry] Onset: 06-15-2024 04-06-2023 Episodic Residual codes; unclassified (1 source) Asymptomatic menopausal state; Translations: [Asymptomatic menopausal state] Onset: 05-19-2024 Episodic Spondylosis; intervertebral disc disorders; other back problems (16 sources) Backache; Translations: [Dorsalgia, unspecified] Onset: 02-03-2024 05-19-2024 Episodic Unclassified (20 sources) uterine ablation 10-05-2021 Results Test Name Value Interpretation Reference Range Facility Internal Medicine Office Vis marixa 12-22-2024 Internal Medicine Office Visit [facility] Internal Medicine [address] [place] [address] [place] [address] OFFICE VISIT Date of Service: 12/22/24 MR#: [id number] Acct: [id number] Name: ANH EWING Rep #: [id number] : 1955 Provider: Dr. Moni calderón MD Age/Sex: 69/F Location: [facility] Status: Signed Intake Vital Signs 09/23/24 13:03 10/19/24 10:39 12/22/24 08:01 Height 5 ft 4 in 5 ft 4 in 5 ft 4 in Weight: 283 lb BMI 48.5 BP 122/72 H Blood Pressure Location Lt brachial Position Sitting Respiration 16 Pulse 55 L Pulse Source Monitor Temp 96.7 F L Temp Source Temporal Pulse Oximetry (%) 96 Oxygen Delivery Method room air Intake Visit Reasons: 3 M FU Chief Complaint: 3 month fu Education Program Specialist Required: No Accompanied by: Self Is patient in pain?: No Allergies Sulfa (Sulfonamide Antibiotics) Allergy (Unknown, Verified 12/22/24 07:57) Unknown hydroxychloroquine Allergy (Verified 12/22/24 07:57) Hives tramadol Allergy (Verified 12/22/24 07:57) Itching amlodipine Adverse Reaction (Intermediate, Verified 12/22/24 07:57) Foot and ankle swelling Medications ???Medication ???Instructions ???Recorded ???Confirmed ???Type betamethasone dipropionate 0.05 % 1 applic topical DAILY PRN skin 0 04/12/19 12/22/24 History topical cream Handicap Placard #1 ea 12/20/19 12/22/24 Rx Handicap Placard #1 ea 11/21/22 12/22/24 Rx leflunomide 20 mg tablet 20 mg PO DAILY 04/03/23 12/22/24 H istory blood pressure monitor #1 ea 04/17/23 12/22/24 Rx prednisolone acetate 1 % eye 1 drp ophthalmic (eye) ONCE 12/22/24 History drops,suspension cholecalciferol (vitamin D3) 25 25 mcg PO QDAY 12/17/23 12/22/24 H istory mcg (1,000 unit) capsule hydralazine 25 mg tablet 25 mg PO BID #180 tabs 12/17/23 Rx valsartan 320 mg tablet 320 mg PO DAILY #90 tabs 12/17/23 12/22/24 Rx atenolol 50 mg tablet 50 mg PO DAILY #90 TABLETS 4 12/22/24 Rx fluticasone fur. 100 mcg-umeclid 1 inh inhalation Q24H #60 ea 02/1712/22/24 Rx 62.5 mcg-vilant 25 mcg inhalat.powder (Trelegy Ellipta) gabapentin 100 mg capsule 100 mg PO QDAY 05/19/24 12/22/24 H istory apixaban 5 mg tablet 5 mg PO BID 90 days #180 tabs 09/0812/22/24 Rx acetaminophen 500 mg capsule 1,000 mg (2 x 500 mg) PO Q8H PRN 0 09/29/24 12/22/24 Rx PRN fever or pain #180 caps Gemtesa 75 mg tablet (vibegron) 75 mg PO DAILY 90 days #90 tabs 12/22/24 Rx montelukast 10 mg tablet 10 mg PO QPM #90 tabs 11/18/2411/08 Rx (Singulair) hydrochlorothiazide 25 mg tablet 25 mg PO DAILY #30 TABLETS 5 12/22/24 Rx fenofibrate 54 mg tablet 54 mg PO DAILY #90 tabs 12/22/24 1 Rx omeprazole 40 mg capsule,delayed 40 mg PO QDAY #90 caps 12/22/24 Rx release Have you fallen in the past year?: No Nurse's Note: needs refills [facility] Medical History (Updated 12/22/24 @ 08:[address] Moni Velásquez MD) History of pulmonary embolism Mixed incontinence Osteoarthritis Pruritus Rheumatoid arthritis Upper back pain [...] nodule Essential hypertension Mixed hyperlipidemia Surgical History H/O dilation and curettage History of cornea transplant History of cataract surgery uterine ablation History of tubal ligation History of cholecystectomy Family History Brother Sudden cardiac , Onset Age: 50 Mother Heart disease Father Heart disease Social History Smoking Status: Never smoker alcohol intake: never substance use type: does not use caffeine: Yes Type: coffee Number of servings: 2 what type of physical activity do you participate in: none do you feel safe at home: Yes HPI HPI Chief Complaint: 3 month fu Details: ANH SCHROER, is a 69-year-old female presenting for a follow-up visit for chronic disease management. She reports her pruritus is stable and she manages it by using CeraVe lotion, Sarna cream, and betamethasone for severe episodes. He (more content not included)... Normal [facility] Laboratory - Chemistry and C hemistry - challengeOrdered By: Aniyah Sharp on 10-19-2024 Bilirubin Ql (U) Negative [facility] Glucose Ql (U) Negative [facility] Ketones Ql (U) Negative [facility] pH (U) 5 [pH] [facility] Specific gravity (U) [Rel density] 1.010 [facility] Urobilinogen (U) [Mass/Vol] Negative [facility] Laboratory - Hematology and Cell countsOrdered By: Aniyah Sharp on 10-19-2024 Hemoglobin Ql (U) Negative [facility] Laboratory - UrinalysisOrder ed By: Aniyah Sharp on 10-19-2024 Nitrite Ql (U) Negative [facility] Protein Ql (U) Negative [facility] MR/Mary 10-19-2024 /[facility] [address], [address] [place] [address] OFFICE VISIT Date of Service: 10/19/24 MR#: [id number] Acct: [id number] Name: ANH EWING Rep #: [id number] : 1955 Provider: Dr. Aniyah Cole i, MD Age/Sex: 69/F Location[place] [facility] [place] Status: Signed Intake Vital Signs 09/23/24 13:03 10/19/24 10:39 Height 5 ft 4 in 5 ft 4 in Weight: 280 lb 280 lb BMI 48.0 48.0 BP 132/68 H 125/77 H Blood Pressure Location Lt brachial Lt radial Position Sitting Sitting Respiration 18 Pulse 66 54 L Pulse Source Monitor Temp 97.8 F Temp Source Temporal Pulse Oximetry (%) 93 Oxygen Delivery Method room air Intake Visit Reasons: 12MO MED F/U Chief Complaint: 12 month gemtesa medication follow up Education Program Specialist Required: No Accompanied by: Self Is patient in pain?: Yes (joint pain) Pain scale (1-10): 2 Allergies Sulfa (Sulfonamide Antibiotics) Allergy (Unknown, Verified 10/19/24 10:39) Unknown hydroxychloroquine Allergy (Verified 10/19/24 10:39) Hives tramadol Allergy (Verified 10/19/24 10:39) Itching amlodipine Adverse Reaction (Intermediate, Verified 10/19/24 10:39) Foot and ankle swelling Medications ???Medication ???Instructions ???Recorded ???Confirmed ???Type betamethasone dipropionate 0.05 % 1 applic topical DAILY PRN skin 0 04/12/19 10/19/24 History topical cream Handicap Placard #1 ea 12/20/19 09/23/24 Rx Handicap Placard #1 ea 11/21/22 09/23/24 Rx leflunomide 20 mg tablet 20 mg PO DAILY 04/03/23 10/19/24 H istory blood pressure monitor #1 ea 04/17/23 09/23/24 Rx prednisolone acetate 1 % eye 1 drp ophthalmic (eye) ONCE 10/19/24 History drops,suspension fenofibrate 54 mg tablet 54 mg PO DAILY #90 tabs 11/11/23 0 10/19/24 Rx cholecalciferol (vitamin D3) 25 25 mcg PO QDAY 12/17/23 10/19/24 H istory mcg (1,000 unit) capsule hydralazine 25 mg tablet 25 mg PO BID #180 tabs 12/17/23 Rx hydrochlorothiazide 25 mg tablet 25 mg PO DAILY #90 TABLETS 4 10/19/24 Rx valsartan 320 mg tablet 320 mg PO DAILY #90 tabs 12/17/23 10/19/24 Rx atenolol 50 mg tablet 50 mg PO DAILY #90 TABLETS 4 10/19/24 Rx fluticasone fur. 100 mcg-umeclid 1 inh inhalation Q24H #60 ea 02/1710/19/24 Rx 62.5 mcg-vilant 25 mcg inhalat.powder (Trelegy Ellipta) montelukast 10 mg tablet 10 mg PO QPM #90 tabs 02/18/2408/08 Rx (Singulair) gabapentin 100 mg capsule 100 mg PO QDAY 05/19/24 10/19/24 H istory apixaban 5 mg tablet 5 mg PO BID 90 days #180 tabs 09/0810/19/24 Rx acetaminophen 500 mg capsule 1,000 mg (2 x 500 mg) PO Q8H PRN 0 09/29/24 10/19/24 Rx PRN fever or pain #180 caps Gemtesa 75 mg tablet (vibegron) 75 mg PO DAILY 90 days #90 tabs 10/19/24 Rx Have you fallen in the past year?: No PFSH Medical History (Updated 10/19/24 @ 10:[address] Aniyah Sharp MD) Mixed incontinence Osteoarthritis Pruritus Rheumatoid arthritis Upper back pain [...] nodule Essential hypertension Mixed hyperlipidemia Surgical History H/O dilation and curettage History of cornea transplant History of cataract surgery uterine ablation History of tubal ligation History of cholecystectomy Family History Brother Sudden cardiac , Onset Age: 50 Mother Heart disease Father Heart disease Social History Smoking Status: Never smoker alcohol intake: never substance use type: does not use caffeine: Yes Type: coffee Number of servings: 2 what type of physical activity do you participate in: none do you feel safe at home: Yes HPI HPI Urology Chief Complaint: 12 month gemtesa medication follow up Details: ANH EWING, is a 69 F. She is here for medication follow up. She has been taking Gemtesa 75mg daily. She is not having side effects from the medication. She is now voiding about 6-8 times during the day, and 1 times at night. There is occasional drips of incontinence during the middle of the night on the wa (more content not included)... Normal [facility] No Panel InformationOrdered By: Aniyah Sharp on 10-19-2024 Urine Leukocytes Negatve [facility] Urine Non-Hemolyzed Blood Negative [facility] Absolute lymphocyte countOrd ered By: Moni Velásquez on 10-15-2024 Lymphocytes Auto (Unsp spec) [#/Vol] 2.37 10*3/uL 0.83-4.51 [facility] Absolute neutrophil countOrd ered By: Moni Velásquez on 10-15-2024 Neutrophils (Bld) [#/Vol] 2.2 10*3/uL 2.0-7.7 [facility] Anion gap in Serum or Plasma Ordered By: Moni Velásquez on 10-15-2024 Anion gap [Moles/Vol] 13 mmol/L 5-15 [facility] Automated lymphocyte count a s percentage of total leukocytesOrdered By: Moni Velásquez on 10-15-2024 Lymphocytes/100 WBC Auto (Unsp spec) 43.5 % High 19-41 [facility] BUN/creatinine ratioOrdered By: Moni Velásquez on 10-15-2024 Urea nitrogen/Creatinine [Mass ratio] 19.7 mg/mg 10-20 [facility] Basophil percentageOrdered B y: Moni Velásquez on 10-15-2024 Basophils/100 WBC (Bld) 1.1 % High 0-1 [facility] Bilirubin, totalOrdered By: Moni Velásquez on 10-15-2024 Bilirubin [Mass/Vol] 0.41 mg/dL 0.00-1.30 [facility] CBC W/Diff, Automatedon Absolute Lymph 2.37 X10 3/uL Normal 0.83-4.51 [facility] Comment on above: Order Comment: DR. Sharonda APL ORDERED LIPIDDR. ANTHONY ORDERED CMP CBCD Performed By: #### L 500.4100, L100.0100, L500.4050 ####[facility] [address] [place], [address] Absolute Neut 2.2 X10 3/uL Normal 2.0-7.7 [facility] Comment on above: Order Comment: DR. Sharonda PAL ORDERED LIPIDDR. PACHECOLANKARLY ORDERED CMP CBCD Performed By: #### L 500.4100, L100.0100, L500.4050 ####[facility] [address] [place], [address] Basophils/100 WBC (Bld) 1.1 % High 0-1 [facility] Comment on above: Order Comment: DR. Sharonda PAL ORDERED LIPIDDR. ANTHONY ORDERED CMP CBCD Performed By: #### L 500.4100, L100.0100, L500.4050 ####[facility] [address] [place], [address] Eosinophils/100 WBC (Bld) 1.8 % Normal 0-5 [facility] Comment on above: Order Comment: DR. Sharonda PAL ORDERED LIPIDDR. PACHECOLANKARLY ORDERED CMP CBCD Performed By: #### L 500.4100, L100.0100, L500.4050 ####[facility] [address] [place], [address] Erythrocyte distribution width (RBC) [Ratio] 15.1 % High 11.6-14.6 [facility] Comment on above: Order Comment: DR. Sharonda PAL ORDERED LIPIDDR. PACHECOLANKARLY ORDERED CMP CBCD Performed By: #### L 500.4100, L100.0100, L500.4050 ####[facility] [address] [place], [address] Hematocrit (Bld) [Volume fraction] 40.7 % Normal 37-47 [facility] Comment on above: Order Comment: DR. Sharonda PAL ORDERED LIPIDDR. ANTHONY ORDERED CMP CBCD Performed By: #### L 500.4100, L100.0100, L500.4050 ####[facility] [address] [place], [address] Hemoglobin (Bld) [Mass/Vol] 12.8 g/dL Normal 12.0-15.0 [facility] Comment on above: Order Comment: DR. Sharonda PAL ORDERED LIPIDDR. CRUZ ORDERED CMP CBCD Performed By: #### L 500.4100, L100.0100, L500.4050 ####[facility] [address] [place], [address] IG% 0.200 Normal 0.0-0.9 [facility] Comment on above: Order Comment: DR. Sharonda PAL ORDERED LIPIDDR. CRUZ ORDERED CMP CBCD Result Comment: IG% - Immature Granulocytes (promyelocytes, myelocytes and metamyelocytes) > 1% indicates that a LEFT SHIFT is Present. Performed By: #### L 500.4100, L100.0100, L500.4050 ####[facility] [address] [place], [address] Lymphocytes/100 WBC (Bld) 43.5 % High 19-41 [facility] Comment on above: Order Comment: DR. Sharonda PAL ORDERED LIPIDDR. CRUZ ORDERED CMP CBCD Performed By: #### L 500.4100, L100.0100, L500.4050 ####[facility] [address] [place], [address] MCH (RBC) [Entitic mass] 28.9 pg Normal 27.0-32.0 [facility] Comment on above: Order Comment: DR. Sharonda PAL ORDERED LIPIDDR. CRUZ ORDERED CMP CBCD Performed By: #### L 500.4100, L100.0100, L500.4050 ####[facility] [address] [place], [address] MCHC (RBC) [Mass/Vol] 31.4 g/dL Low 32-36 [facility] Comment on above: Order Comment: DR. Sharonda PAL ORDERED LIPIDDR. CRUZ ORDERED CMP CBCD Performed By: #### L 500.4100, L100.0100, L500.4050 ####[facility] [address] [place], [address] MCV (RBC) [Entitic vol] 91.9 fL Normal 81-99 [facility] Comment on above: Order Comment: DR. Sharonda PAL ORDERED LIPIDDR. CRUZ ORDERED CMP CBCD Performed By: #### L 500.4100, L100.0100, L500.4050 ####[facility] [address] [place], [address] Monocytes/100 WBC (Bld) 12.7 % High 0-10 [facility] Comment on above: Order Comment: DR. Sharonda PAL ORDERED LIPIDDR. CRUZ ORDERED CMP CBCD Performed By: #### L 500.4100, L100.0100, L500.4050 ####[facility] [address] [place], [address] Neutrophils/100 WBC (Bld) 40.7 % Low 47-70 [facility] Comment on above: Order Comment: DR. Sharonda PAL ORDERED LIPIDDR. CRUZ ORDERED CMP CBCD Performed By: #### L 500.4100, L100.0100, L500.4050 ####[facility] [address] [place], [address] Nucleated RBC (Bld) [#/Vol] 0 10*3/uL Normal 0-5 [facility] Comment on above: Order Comment: DR. Sharonda PAL ORDERED LIPIDDR. CRUZ ORDERED CMP CBCD Performed By: #### L 500.4100, L100.0100, L500.4050 ####[facility] [address] [place], [address] Platelet mean volume (Bld) [Entitic vol] 10.3 fL Normal 6.2-12.0 [facility] Comment on above: Order Comment: DR. Sharonda PAL ORDERED LIPIDDR. ANTHONY ORDERED CMP CBCD Performed By: #### L 500.4100, L100.0100, L500.4050 ####[facility] [address] [place], [address] Platelets (Bld) [#/Vol] 221 10*3/uL Normal 150-450 [facility] Comment on above: Order Comment: DR. Sharonda PAL ORDERED LIPIDDR. ANTHONY ORDERED CMP CBCD Performed By: #### L 500.4100, L100.0100, L500.4050 ####[facility] [address] [place], [address] RBC (Bld) [#/Vol] 4.43 10*6/uL Normal 4.2-5.4 [facility] Comment on above: Order Comment: DR. Sharonda PAL ORDERED LIPIDDR. ANTHONY ORDERED CMP CBCD Performed By: #### L 500.4100, L100.0100, L500.4050 ####[facility] [address] [place], [address] RDW SD 50.4 fl High 35.1-43.9 [facility] Comment on above: Order Comment: DR. Sharonda PAL ORDERED LIPIDDR. ANTHONY ORDERED CMP CBCD Performed By: #### L 500.4100, L100.0100, L500.4050 ####[facility] [address] [place], [address] WBC (Bld) [#/Vol] 5.5 10*3/uL Normal 4.4-11.0 [facility] Comment on above: Order Comment: DR. Sharonda PAL ORDERED LIPIDDR. ANTHONY ORDERED CMP CBCD Performed By: #### L 500.4100, L100.0100, L500.4050 ####[facility] [address] [place], [address] Calculated very low density lipoprotein (VLDL) cholesterol measurementOrdered By: Moni Velásquez on 10-15-2024 Calculated very low density lipoprotein (VLDL) cholesterol measurement 40 mg/dL 5-40 [facility] Carbon dioxide, total [Moles /volume] in Central venous bloodOrdered By: Moni Velásquez on 10-15-2024 CO2 [Moles/Vol] 21.3 mmol/L 21.0-32.0 [facility] Chloride assayOrdered By: Kj lisakillian Blisspedromary on 10-15-2024 Chloride [Moles/Vol] 106 mmol/L 98-108 [facility] Comprehensive Metabolic Prof ilon 10-15-2024 Albumin [Mass/Vol] 3.7 g/dL Normal 3.4-4.8 [facility] Comment on above: Order Comment: DR. Sharonda PAL ORDERED LIPIDDRLatia CRUZ ORDERED CMP CBCD Performed By: #### L 500.4100, L100.0100, L500.4050 ####[facility] [address] [place], [address] Albumin/Globulin [Mass ratio] 1.2 {ratio} Normal 0.9-2.4 [facility] Comment on above: Order Comment: DR. Sharonda PAL ORDERED LIPIDDR. CRUZ ORDERED CMP CBCD Performed By: #### L 500.4100, L100.0100, L500.4050 ####[facility] [address] [place], [address] ALK PHOS 75 U/L Normal 35-104 [facility] Comment on above: Order Comment: DR. Sharonda PAL ORDERED LIPIDDRLatia CRUZ ORDERED CMP CBCD Performed By: #### L 500.4100, L100.0100, L500.4050 ####[facility] [address] [place], [address] ALT [Catalytic activity/Vol] 15 U/L Normal <=34 [facility] Comment on above: Order Comment: DR. Sharonda PAL ORDERED LIPIDDRLatia CRUZ ORDERED CMP CBCD Performed By: #### L 500.4100, L100.0100, L500.4050 ####[facility] [address] [place], [address] AST [Catalytic activity/Vol] 22 U/L Normal <=31 [facility] Comment on above: Order Comment: DR. Sharonda PAL ORDERED LIPIDDR. ANTHONY ORDERED CMP CBCD Performed By: #### L 500.4100, L100.0100, L500.4050 ####[facility] [address] [place], [address] Bilirubin [Mass/Vol] 0.41 mg/dL Normal 0.00-1.30 [facility] Comment on above: Order Comment: DR. Sharonda PAL ORDERED LIPIDDR. ANTHONY ORDERED CMP CBCD Performed By: #### L 500.4100, L100.0100, L500.4050 ####[facility] [address] [place], [address] BUN/CRE 19.7 RATIO Normal 10-20 [facility] Comment on above: Order Comment: DR. Sharonda PAL ORDERED LIPIDDR. ANTHONY ORDERED CMP CBCD Performed By: #### L 500.4100, L100.0100, L500.4050 ####[facility] [address] [place], [address] Calcium [Mass/Vol] 10.0 mg/dL Normal 7.6-11.0 [facility] Comment on above: Order Comment: DR. Sharonda PAL ORDERED LIPIDDR. ANTHONY ORDERED CMP CBCD Performed By: #### L 500.4100, L100.0100, L500.4050 ####[facility] [address] [place], [address] Chloride [Moles/Vol] 106 mmol/L Normal 98-108 [facility] Comment on above: Order Comment: DR. Sharonda PLA ORDERED LIPIDDR. ANTHONY ORDERED CMP CBCD Performed By: #### L 500.4100, L100.0100, L500.4050 ####[facility] [address] [place], [address] CO2 [Moles/Vol] 21.3 mmol/L Normal 21.0-32.0 [facility] Comment on above: Order Comment: DR. Sharonda PAL ORDERED LIPIDDR. ANTHONY ORDERED CMP CBCD Performed By: #### L 500.4100, L100.0100, L500.4050 ####[facility] [address] [place], [address] Creatinine [Mass/Vol] 1.18 mg/dL Normal 0.70-1.20 [facility] Comment on above: Order Comment: DR. Sharonda PAL ORDERED LIPIDDR. ANTHONY ORDERED CMP CBCD Performed By: #### L 500.4100, L100.0100, L500.4050 ####[facility] [address] [place], [address] GAP 13 Normal 5-15 [facility] Comment on above: Order Comment: DR. Sharonda PAL ORDERED LIPIDDR. ANTHONY ORDERED CMP CBCD Performed By: #### L 500.4100, L100.0100, L500.4050 ####[facility] [address] [place], [address] GFR/1.73 sq M.predicted among non-blacks MDRD (S/P/Bld) [Vol rate/Area] 50 mL/min/{1.73_m2} Low >60 [facility] Comment on above: Order Comment: DR. Sharonda PAL ORDERED LIPIDDR. ANTHONY ORDERED CMP CBCD Result Comment: mL/m in/1.73m2 CKD-EPI Creatinine Equation (2020) Performed By: #### L 500.4100, L100.0100, L500.4050 ####[facility] [address] [place], [address] Globulin (S) [Mass/Vol] 3.0 g/dL Normal 2.2-4.2 [facility] Comment on above: Order Comment: DR. Sharonda PAL ORDERED LIPIDDR. ANTHONY ORDERED CMP CBCD Performed By: #### L 500.4100, L100.0100, L500.4050 ####[facility] [address] [place], [address] Glucose [Mass/Vol] 103 mg/dL High 70-99 [facility] Comment on above: Order Comment: DR. Sharonda PAL ORDERED LIPIDDR. ANTHONY ORDERED CMP CBCD Performed By: #### L 500.4100, L100.0100, L500.4050 ####[facility] [address] [place], [address] Potassium [Moles/Vol] 4.0 mmol/L Normal 3.3-5.1 [facility] Comment on above: Order Comment: DR. Sharonda PAL ORDERED LIPIDDR. ANTHONY ORDERED CMP CBCD Performed By: #### L 500.4100, L100.0100, L500.4050 ####[facility] [address] [place], [address] Sodium [Moles/Vol] 140 mmol/L Normal 133-145 [facility] Comment on above: Order Comment: DR. Sharonda PAL ORDERED LIPIDDR. ANTHONY ORDERED CMP CBCD Performed By: #### L 500.4100, L100.0100, L500.4050 ####[facility] [address] [place], [address] T PROT 6.7 g/dL Normal 5.9-8.4 [facility] Comment on above: Order Comment: DR. Sharonda PAL ORDERED LIPIDDR. ANTHONY ORDERED CMP CBCD Performed By: #### L 500.4100, L100.0100, L500.4050 ####[facility] [address] [place], [address] Urea nitrogen [Mass/Vol] 23 mg/dL High 4-19 [facility] Comment on above: Order Comment: DR. Sharonda PAL ORDERED LIPIDDR. ANTHONY ORDERED CMP CBCD Performed By: #### L 500.8890, L100.0100, L500.4050 ####[facility] [address] [place], [address] Eosinophil percentageOrdered By: Moni Velásquez on 10-15-2024 Eosinophils/100 WBC (Bld) 1.8 % 0-5 [facility] Erythrocyte distribution wid th ratioOrdered By: georgia Velásquez on 10-15-2024 Erythrocyte distribution width (RBC) [Ratio] 15.1 % High 11.6-14.6 [facility] Erythrocyte distribution wid th standard deviationOrdered By: alanamohawkkillian Velásquez on 10-15-2024 Erythrocyte distribution width (RBC) [Ratio] 50.4 fl High 35.1-43.9 [facility] Glomerular filtration rate ( GFR) estimation/1.73 sq m using serum, plasma, or whole bOrdered By: alanamohawkkillian Velásquez on 10-15-2024 GFR/1.73 sq M.predicted among non-blacks MDRD (S/P/Bld) [Vol rate/Area] 50 mL/min/{1.73_m2} Low >60 [facility] Comment on above: mL/min/1.73m2 CKD-EP I Creatinine Equation (2020) Hematocrit Auto (Bld) [Volum e fraction]Ordered By: alanamohawkkillian Velásquez on 10-15-2024 Hematocrit (Bld) [Volume fraction] 40.7 % 37-47 [facility] Hemoglobin measurementOrdere d By: Moni Velásquez on 10-15-2024 Hemoglobin (Bld) [Mass/Vol] 12.8 g/dL 12.0-15.0 [facility] Immature granulocytes/100 WB C Auto (Bld)Ordered By: Moni Velásquez on 10-15-2024 Immature granulocytes/100 WBC (Bld) 0.200 % 0.0-0.9 [facility] Comment on above: IG% - Immature Granu locytes (promyelocytes, myelocytes and metamyelocytes) > 1% indicates that a LEFT SHIFT is Present. LDL calc ser/plasOrdered By: Moni Velásquez on 10-15-2024 Cholesterol in LDL [Mass/Vol] 115 mg/dL [facility] Comment on above: Etyaqcgflx=074-004 m g/dL & Higher Prtu=905 mg/dL or greaterFriedwald Equation for LDL-C Laboratory - Chemistry and C hemistry - challengeOrdered By: Moni Velásquez on 10-15-2024 AST [Catalytic activity/Vol] 22 U/L <32 [facility] Lipid Profileon 10-15-2024 CHOL:HDL 4.45 Normal [facility] Comment on above: Order Comment: DR. Sharonda PAL ORDERED LIPIDDRLatia CRUZ ORDERED CMP CBCD Performed By: #### L 500.4100, L100.0100, L500.4050 ####[facility] [address] [place], [address] Cholesterol [Mass/Vol] 200 mg/dL Normal <=200 [facility] Comment on above: Order Comment: DR. Sharonda PAL ORDERED LIPIDDRLatia CRUZ ORDERED CMP CBCD Result Comment: Chol esterol level, Desirable <200 mg/dL Borderline high cholesterol 200-239 mg/dL High cholesterol >=240 mg/dL Recommendations of the NCEP Adult Treatment Panel for the following risk-cutoff thresholds for the [place] population. Performed By: #### L 500.4100, L100.0100, L500.4050 ####[facility] [address] [place], [address] Cholesterol in HDL [Mass/Vol] 45 mg/dL Normal [facility] Comment on above: Order Comment: DR. Sharonda PAL ORDERED LIPIDDR. ANTHONY ORDERED CMP CBCD Result Comment: Zaira onal Cholesterol Education Program (NCEP) guidelines: <40 mg/dL: Low HDL-cholesterol (major risk factor for CHD) >= 60 mg/dL: High HDL-cholesterol (negative risk factor for CHD) HDL-cholesterol is affected by a number of factors, e.g. smoking, exercise, hormones, sex and age. Performed By: #### L 500.4100, L100.0100, L500.4050 ####[facility] [address] [place], [address] Cholesterol in LDL [Mass/Vol] 115 mg/dL Normal [facility] Comment on above: Order Comment: DR. Sharonda PAL ORDERED LIPIDDRLatia CRUZ ORDERED CMP CBCD Result Comment: Bord khufgh=844-512 mg/dL Higher Xnxb=193 mg/dL or greater Friedwald Equation for LDL-C Performed By: #### L 500.4100, L100.0100, L500.4050 ####[facility] [address] [place], [address] Cholesterol in VLDL [Mass/Vol] 40 mg/dL Normal 5-40 [facility] Comment on above: Order Comment: DR. Sharonda PAL ORDERED LIPIDDRLatia CRUZ ORDERED CMP CBCD Performed By: #### L 500.4100, L100.0100, L500.4050 ####[facility] [address] [place], [address] Triglyceride [Mass/Vol] 202 mg/dL High [facility] Comment on above: Order Comment: DR. Sharonda PAL ORDERED LIPIDDR. CRUZ ORDERED CMP CBCD Result Comment: The drugs N-Acetylcysteine and Metamizole may falsely depress this assay. Normal range: <150 mg/dL Borderline High: 150-199 mg/dL High: 200-499 mg/dL Very High: >500 mg/dL Performed By: #### L 500.4100, L100.0100, L500.4050 ####[facility] [address] [place], [address] MCV (mean corpuscular volume ) determinationOrdered By: Moni Velásquez on 10-15-2024 MCV (RBC) [Entitic vol] 91.9 fL 81-99 [facility] Mean corpuscular hemoglobin (MCH) determinationOrdered By: Moin Velásquez on 10-15-2024 MCH (RBC) [Entitic mass] 28.9 pg 27.0-32.0 [facility] Mean corpuscular hemoglobin concentration (MCHC) determinationOrdered By: Moni Velásquez on 10-15-2024 MCHC (RBC) [Mass/Vol] 31.4 g/dL Low 32-36 [facility] Mean platelet volume determi nationOrdered By: Moni Velásquez on 10-15-2024 Platelet mean volume (Bld) [Entitic vol] 10.3 fL 6.2-12.0 [facility] Monocyte percentageOrdered B y: Moni Velásquez on 10-15-2024 Monocytes/100 WBC (Bld) 12.7 % High 0-10 [facility] Neutrophil percentageOrdered By: Moni Velásquez on 10-15-2024 Neutrophils/100 WBC (Bld) 40.7 % Low 47-70 [facility] Nucleated red blood cell per centageOrdered By: Moni Velásqeuz on 10-15-2024 Nucleated RBC/100 WBC (Bld) [Ratio] 0 % 0-5 [facility] Platelet countOrdered By: Kj Velásquez on 10-15-2024 Platelets (Bld) [#/Vol] 221 10*3/uL 150-450 [facility] Potassium measurement (mass/ volume)Ordered By: Moni Velásquez on 10-15-2024 Potassium (Unsp spec) [Mass/Vol] 4.0 mmol/L 3.3-5.1 [facility] RBC Auto (Bld) [#/Vol]Ordere d By: Moni Velásquez on 10-15-2024 RBC (Bld) [#/Vol] 4.43 10*6/uL 4.2-5.4 [facility] Screening total cholesterol/ high density lipoprotein (HDL) cholesterol ratioOrdered By: Moni Velásquez on 10-15-2024 Cholesterol.total/Choles terol in HDL [Mass ratio] 4.45 {ratio} [facility] Serum creatinine measurement (mass/volume)Ordered By: Moni Velásquez on 10-15-2024 Creatinine [Mass/Vol] 1.18 mg/dL 0.70-1.20 [facility] Serum globulin measurementOr dered By: Moni Velásquez on 10-15-2024 Globulin (S) [Mass/Vol] 3.0 g/dL 2.2-4.2 [facility] Serum glucose measurement (m ass/volume)Ordered By: Moni Velásquez on 10-15-2024 Glucose [Mass/Vol] 103 mg/dL High 70-99 [facility] Serum or plasma alanine rees otransferase (ALT) measurementOrdered By: Moni Velásquez on 10-15-2024 ALT [Catalytic activity/Vol] 15 U/L <35 [facility] Serum or plasma albumin griffin urement (mass/volume)Ordered By: Moni Velásquez on 10-15-2024 Albumin [Mass/Vol] 3.7 g/dL 3.4-4.8 [facility] Serum or plasma albumin/glob ulin mass ratioOrdered By: Moni Velásquez on 10-15-2024 Albumin/Globulin [Mass ratio] 1.2 {ratio} 0.9-2.4 [facility] Serum or plasma alkaline perez sphatase measurementOrdered By: Moni Velásquez on 10-15-2024 ALP [Catalytic activity/Vol] 75 U/L 35-104 [facility] Serum or plasma calcium griffin urement (mass/volume)Ordered By: Moni Velásquez 10-15-2024 Calcium [Mass/Vol] 10.0 mg/dL 7.6-11.0 [facility] Serum or plasma cholesterol in HDL measurement (mass/volume)Ordered By: Moni Velásquez on 10-15-2024 Cholesterol in HDL [Mass/Vol] 45 mg/dL >40 [facility] Comment on above: National Cholesterol Education Program (NCEP) guidelines:<40 mg/dL: Low HDL-cholesterol (major risk factor for CHD)>= 60 mg/dL: High HDL-cholesterol (negative risk factor for CHD)HDL-cholesterol is affected by a number of factors, e.g. smoking, exercise, hormones, sex and age. Serum or plasma cholesterol measurement (mass/volume)Ordered By: Moni Velásquez on 10-15-2024 Cholesterol [Mass/Vol] 200 mg/dL <201 [facility] Comment on above: Cholesterol level, D esirable <200 mg/dLBorderline high cholesterol 200-239 mg/dLHigh cholesterol >=240 mg/dLRecommendations of the NCEP Adult Treatment Panel for the following risk-cutoff thresholds for the [place] population. Serum or plasma urea nitroge n measurement (mass/volume)Ordered By: Moni Velásquez on 10-15-2024 Urea nitrogen [Mass/Vol] 23 mg/dL High 4-19 [facility] Sodium levelOrdered By: Wong Velásquez on 10-15-2024 Sodium [Moles/Vol] 140 mmol/L 133-145 [facility] Total proteinOrdered By: Eduin Velásquez on 10-15-2024 Protein [Mass/Vol] 6.7 g/dL 5.9-8.4 [facility] Triglycerides measurementOrd ered By: Moni Velásquez on 10-15-2024 Triglyceride [Mass/Vol] 202 mg/dL High <199 [facility] Comment on above: The drugs N-Acetylcy steine and Metamizole may falsely depress this assay. Normal range: <150 mg/dLBorderline High: 150-199 mg/dLHigh: 200-499 mg/dLVery High: >500 mg/dL White blood cell (WBC) count Ordered By: Moni Velásquez on 10-15-2024 WBC (Bld) [#/Vol] 5.5 10*3/uL 4.4-11.0 [facility] Internal Medicine Office Vis marixa 09-23-2024 Internal Medicine Office Visit [facility] [address] [place] [address] [place] [address] OFFICE VISIT Date of Service: 09/23/24 MR#: [id number] Acct: [id number] Name: ANH EWING Rep #: [id number] : 1955 Provider: Dr. Moni calderón MD Age/Sex: 69/F Location: [facility] Status: Signed Intake Vital Signs 05/19/24 09:45 [...] 50 mg PO DAILY #90 TABLETS 4 07/10/25 Rx fluticasone fur. 100 mcg-umeclid 1 inh [...] morning stiffness of joint pain appears to "move around". Follows up with podiatry and the patient has been advised about a potential steroid injection for her ankle pain, but insurance coverage is an issue. She is taking leflunomide for rheumatoid arthritis and also follows up closely with abiu (more content not included)... Normal [facility] Absolute lymphocyte countOrd ered By: Andreinaalla Cruz on 07-16-2024 Lymphocytes Auto (Unsp spec) [#/Vol] 2.38 10*3/uL 0.83-4.51 [facility] Absolute neutrophil countOrd ered By: [facility] Anthony on 07-16-2024 Neutrophils (Bld) [#/Vol] 2.0 10*3/uL 2.0-7.7 [facility] Anion gap in Serum or Plasma Ordered By: Andreina Cruz on 07-16-2024 Anion gap [Moles/Vol] 13 mmol/L 5-15 [facility] Automated lymphocyte count a s percentage of total leukocytesOrdered By: [facility] Anthony on 07-16-2024 Lymphocytes/100 WBC Auto (Unsp spec) 44.1 % High 19-41 [facility] BUN/creatinine ratioOrdered By: [facility] on 07-16-2024 Urea nitrogen/Creatinine [Mass ratio] 20.0 mg/mg 10-20 [facility] Basophil percentageOrdered B y: Andreina Cruz on 07-16-2024 Basophils/100 WBC (Bld) 1.5 % High 0-1 [facility] Bilirubin, totalOrdered By: [facility] Anthony on 07-16-2024 Bilirubin [Mass/Vol] 0.34 mg/dL 0.00-1.30 [facility] CBC W/Diff, Automatedon Absolute Lymph 2.38 X10 3/uL Normal 0.83-4.51 [facility] Comment on above: Performed By: #### L 500.4050, L100.0100 #### [facility] [address] [place], [address] Absolute Neut 2.0 X10 3/uL Normal 2.0-7.7 [facility] Comment on above: Performed By: #### L 500.4050, L100.0100 #### [facility] [address] [place], [address] Basophils/100 WBC (Bld) 1.5 % High 0-1 [facility] Comment on above: Performed By: #### L 500.4050, L100.0100 #### [facility] [address] [place], [address] Eosinophils/100 WBC (Bld) 1.9 % Normal 0-5 [facility] Comment on above: Performed By: #### L 500.4050, L100.0100 #### [facility] [address] [place], [address] Erythrocyte distribution width (RBC) [Ratio] 14.3 % Normal 11.6-14.6 [facility] Comment on above: Performed By: #### L 500.4050, L100.0100 #### [facility] [address] [place], [address] Hematocrit (Bld) [Volume fraction] 41.7 % Normal 37-47 [facility] Comment on above: Performed By: #### L 500.4050, L100.0100 #### [facility] [address] [place], [address] Hemoglobin (Bld) [Mass/Vol] 13.4 g/dL Normal 12.0-15.0 [facility] Comment on above: Performed By: #### L 500.4050, L100.0100 #### [facility] [address] [place], [address] IG% 0.400 Normal 0.0-0.9 [facility] Comment on above: Result Comment: IG% - Immature Granulocytes (promyelocytes, myelocytes and metamyelocytes) > 1% indicates that a LEFT SHIFT is Present. Performed By: #### L 500.4050, L100.0100 #### [facility] [address] [place], [address] Lymphocytes/100 WBC (Bld) 44.1 % High 19-41 [facility] Comment on above: Performed By: #### L 500.4050, L100.0100 #### [facility] [address] [place], [address] MCH (RBC) [Entitic mass] 29.1 pg Normal 27.0-32.0 [facility] Comment on above: Performed By: #### L 500.4050, L100.0100 #### [facility] [address] [place], [address] MCHC (RBC) [Mass/Vol] 32.1 g/dL Normal 32-36 [facility] Comment on above: Performed By: #### L 500.4050, L100.0100 #### [facility] [address] [place], [address] MCV (RBC) [Entitic vol] 90.7 fL Normal 81-99 [facility] Comment on above: Performed By: #### L 500.4050, L100.0100 #### [facility] [address], [address] Monocytes/100 WBC (Bld) 15.9 % High 0-10 [facility] Comment on above: Performed By: #### L 500.4050, L100.0100 #### [facility] [address] [place], [address] Neutrophils/100 WBC (Bld) 36.2 % Low 47-70 [facility] Comment on above: Performed By: #### L 500.4050, L100.0100 #### [facility] [address] [place], [address] Nucleated RBC (Bld) [#/Vol] 0 10*3/uL Normal 0-5 [facility] Comment on above: Performed By: #### L 500.4050, L100.0100 #### [facility] [address] [place], [address] Platelet mean volume (Bld) [Entitic vol] 10.2 fL Normal 6.2-12.0 [facility] Comment on above: Performed By: #### L 500.4050, L100.0100 #### [facility] [address] [place], [address] Platelets (Bld) [#/Vol] 225 10*3/uL Normal 150-450 [facility] Comment on above: Performed By: #### L 500.4050, L100.0100 #### [facility] [address] [place], [address] RBC (Bld) [#/Vol] 4.60 10*6/uL Normal 4.2-5.4 [facility] Comment on above: Performed By: #### L 500.4050, L100.0100 #### [facility] [address] [place], [address] RDW SD 47.5 fl High 35.1-43.9 [facility] Comment on above: Performed By: #### L 500.4050, L100.0100 #### [facility] [address] [place], [address] WBC (Bld) [#/Vol] 5.4 10*3/uL Normal 4.4-11.0 [facility] Comment on above: Performed By: #### L 500.4050, L100.0100 #### [facility] [address] [place], [address] Carbon dioxide, total [Moles /volume] in Central venous bloodOrdered By: Andreina Cruz on 07-16-2024 CO2 [Moles/Vol] 22.3 mmol/L 21.0-32.0 [facility] Chloride assayOrdered By: Marielos Cruz on 07-16-2024 Chloride [Moles/Vol] 104 mmol/L 98-108 [facility] Comprehensive Metabolic Prof ilon 07-16-2024 Albumin [Mass/Vol] 3.7 g/dL Normal 3.4-4.8 [facility] Comment on above: Performed By: #### L 500.4050, L100.0100 #### [facility] [address] [place], [address] Albumin/Globulin [Mass ratio] 1.2 {ratio} Normal 0.9-2.4 [facility] Comment on above: Performed By: #### L 500.4050, L100.0100 #### [facility] [address] [place], [address] ALK PHOS 81 U/L Normal 35-104 [facility] Comment on above: Performed By: #### L 500.4050, L100.0100 #### [facility] [address] [place], [address] ALT [Catalytic activity/Vol] 17 U/L Normal <=34 [facility] Comment on above: Performed By: #### L 500.4050, L100.0100 #### [facility] [address] [place], [address] AST [Catalytic activity/Vol] 25 U/L Normal <=31 [facility] Comment on above: Performed By: #### L 500.4050, L100.0100 #### [facility] [address] [place], [address] Bilirubin [Mass/Vol] 0.34 mg/dL Normal 0.00-1.30 [facility] Comment on above: Performed By: #### L 500.4050, L100.0100 #### [facility] [address] [place], [address] BUN/CRE 20.0 RATIO Normal 10-20 [facility] Comment on above: Performed By: #### L 500.4050, L100.0100 #### [facility] [address] [place], [address] Calcium [Mass/Vol] 9.9 mg/dL Normal 7.6-11.0 [facility] Comment on above: Performed By: #### L 500.4050, L100.0100 #### [facility] [address] [place], [address] Chloride [Moles/Vol] 104 mmol/L Normal 98-108 [facility] Comment on above: Performed By: #### L 500.4050, L100.0100 #### [facility] [address] [place], [address] CO2 [Moles/Vol] 22.3 mmol/L Normal 21.0-32.0 [facility] Comment on above: Performed By: #### L 500.4050, L100.0100 #### [facility] [address] [place], [address] Creatinine [Mass/Vol] 1.15 mg/dL Normal 0.70-1.20 [facility] Comment on above: Performed By: #### L 500.4050, L100.0100 #### [facility] [address] [place], [address] GAP 13 Normal 5-15 [facility] Comment on above: Performed By: #### L 500.4050, L100.0100 #### [facility] [address] [place], [address] GFR/1.73 sq M.predicted among non-blacks MDRD (S/P/Bld) [Vol rate/Area] 52 mL/min/{1.73_m2} Low >60 [facility] Comment on above: Result Comment: mL/m in/1.73m2 CKD-EPI Creatinine Equation (2020) Performed By: #### L 500.4050, L100.0100 #### [facility] [address] [place], [address] Globulin (S) [Mass/Vol] 3.1 g/dL Normal 2.2-4.2 [facility] Comment on above: Performed By: #### L 500.4050, L100.0100 #### [facility] [address] [place], [address] Glucose [Mass/Vol] 107 mg/dL High 70-99 [facility] Comment on above: Performed By: #### L 500.4050, L100.0100 #### [facility] [address] [place], [address] Potassium [Moles/Vol] 4.0 mmol/L Normal 3.3-5.1 [facility] Comment on above: Performed By: #### L 500.4050, L100.0100 #### [facility] [address] [place], [address] Sodium [Moles/Vol] 139 mmol/L Normal 133-145 [facility] Comment on above: Performed By: #### L 500.4050, L100.0100 #### [facility] [address] [place], [address] T PROT 6.7 g/dL Normal 5.9-8.4 [facility] Comment on above: Performed By: #### L 500.4050, L100.0100 #### [facility] [address] [place], [address] Urea nitrogen [Mass/Vol] 23 mg/dL High 4-19 [facility] Comment on above: Performed By: #### L 500.4050, L100.0100 #### [facility] [address] [place], [address] Eosinophil percentageOrdered By: Andreina Cruz on 07-16-2024 Eosinophils/100 WBC (Bld) 1.9 % 0-5 [facility] Erythrocyte distribution wid th ratioOrdered By: Andreina Cruz on 07-16-2024 Erythrocyte distribution width (RBC) [Ratio] 14.3 % 11.6-14.6 [facility] Erythrocyte distribution wid th standard deviationOrdered By: Andreina Cruz on 07-16-2024 Erythrocyte distribution width (RBC) [Ratio] 47.5 fl High 35.1-43.9 [facility] Glomerular filtration rate ( GFR) estimation/1.73 sq m using serum, plasma, or whole bOrdered By: Andreina Cruz on 07-16-2024 GFR/1.73 sq M.predicted among non-blacks MDRD (S/P/Bld) [Vol rate/Area] 52 mL/min/{1.73_m2} Low >60 [facility] Comment on above: mL/min/1.73m2 CKD-EP I Creatinine Equation (2020) Hematocrit Auto (Bld) [Volum e fraction]Ordered By: Andreina Cruz on 07-16-2024 Hematocrit (Bld) [Volume fraction] 41.7 % 37-47 [facility] Hemoglobin measurementOrdere d By: Andreina Cruz on 07-16-2024 Hemoglobin (Bld) [Mass/Vol] 13.4 g/dL 12.0-15.0 [facility] Immature granulocytes/100 WB C Auto (Bld)Ordered By: Andreina Cruz on 07-16-2024 Immature granulocytes/100 WBC (Bld) 0.400 % 0.0-0.9 [facility] Comment on above: IG% - Immature Granu locytes (promyelocytes, myelocytes and metamyelocytes) > 1% indicates that a LEFT SHIFT is Present. Laboratory - Chemistry and C hemistry - challengeOrdered By: Andreina Cruz on 07-16-2024 AST [Catalytic activity/Vol] 25 U/L <32 [facility] MCV (mean corpuscular volume ) determinationOrdered By: Andreina Cruz on 07-16-2024 MCV (RBC) [Entitic vol] 90.7 fL 81-99 [facility] Mean corpuscular hemoglobin (MCH) determinationOrdered By: Andreina Cruz on 07-16-2024 MCH (RBC) [Entitic mass] 29.1 pg 27.0-32.0 [facility] Mean corpuscular hemoglobin concentration (MCHC) determinationOrdered By: Andreina Cruz on 07-16-2024 MCHC (RBC) [Mass/Vol] 32.1 g/dL 32-36 [facility] Mean platelet volume determi nationOrdered By: Andreina Cruz on 07-16-2024 Platelet mean volume (Bld) [Entitic vol] 10.2 fL 6.2-12.0 [facility] Monocyte percentageOrdered B y: Andreina Cruz on 07-16-2024 Monocytes/100 WBC (Bld) 15.9 % High 0-10 [facility] Neutrophil percentageOrdered By: Andreina Cruz on 07-16-2024 Neutrophils/100 WBC (Bld) 36.2 % Low 47-70 [facility] Nucleated red blood cell per centageOrdered By: Andreina Cruz on 07-16-2024 Nucleated RBC/100 WBC (Bld) [Ratio] 0 % 0-5 [facility] Platelet countOrdered By: Marielos Cruz on 07-16-2024 Platelets (Bld) [#/Vol] 225 10*3/uL 150-450 [facility] Potassium measurement (mass/ volume)Ordered By: Andreina Cruz on 07-16-2024 Potassium (Unsp spec) [Mass/Vol] 4.0 mmol/L 3.3-5.1 [facility] RBC Auto (Bld) [#/Vol]Ordere d By: Andreina Cruz on 07-16-2024 RBC (Bld) [#/Vol] 4.60 10*6/uL 4.2-5.4 [facility] Serum creatinine measurement (mass/volume)Ordered By: Andreina Cruz on 07-16-2024 Creatinine [Mass/Vol] 1.15 mg/dL 0.70-1.20 [facility] Serum globulin measurementOr dered By: Andreina Cruz on 07-16-2024 Globulin (S) [Mass/Vol] 3.1 g/dL 2.2-4.2 [facility] Serum glucose measurement (m ass/volume)Ordered By: Andreina Cruz on 07-16-2024 Glucose [Mass/Vol] 107 mg/dL High 70-99 [facility] Serum or plasma alanine rees otransferase (ALT) measurementOrdered By: Andreina Cruz on 07-16-2024 ALT [Catalytic activity/Vol] 17 U/L <35 [facility] Serum or plasma albumin griffni urement (mass/volume)Ordered By: Andreina Cruz on 07-16-2024 Albumin [Mass/Vol] 3.7 g/dL 3.4-4.8 [facility] Serum or plasma albumin/glob ulin mass ratioOrdered By: Andreina Cruz on 07-16-2024 Albumin/Globulin [Mass ratio] 1.2 {ratio} 0.9-2.4 [facility] Serum or plasma alkaline perez sphatase measurementOrdered By: Andreina Cruz on 07-16-2024 ALP [Catalytic activity/Vol] 81 U/L 35-104 [facility] Serum or plasma calcium griffin urement (mass/volume)Ordered By: Andreina Cruz on 07-16-2024 Calcium [Mass/Vol] 9.9 mg/dL 7.6-11.0 [facility] Serum or plasma urea nitroge n measurement (mass/volume)Ordered By: Andreina Cruz on 07-16-2024 Urea nitrogen [Mass/Vol] 23 mg/dL High 4-19 [facility] Sodium levelOrdered By: Jerzy Cruz on 07-16-2024 Sodium [Moles/Vol] 139 mmol/L 133-145 [facility] Total proteinOrdered By: Denise Cruz on 07-16-2024 Protein [Mass/Vol] 6.7 g/dL 5.9-8.4 [facility] White blood cell (WBC) count Ordered By: Andreina Cruz on 07-16-2024 WBC (Bld) [#/Vol] 5.4 10*3/uL 4.4-11.0 [facility] Bone density reportOrdered B y: Mey Crow on 06-11-2024 Study report Skeletal system DXA [facility] Imaging Services [address] [place] [address] Dexa Bone Density Study MR#: [id number] Acct: [id number] Name: ANH EWING Rep #: [id number] : 1955 F 69 From: Giuseppe Crow DO PCP: Dr. Moni Velásquez MD Status: R EG CLI Study:Dexa Bone Density Study Date of Exam: 06/10/24 Exam# [id number] Ordering Dr: Mary Velásquez MD EXAM: DEXA [...] Recommend follow-up, if clinically warranted. Reading Location: [id number] CC: Dr. Moni Velásquez MD ~ Management Intern: Signed [facility] Breast imaging reportOrdered By: Mey Crow on 06-11-2024 Study report [facility] Imaging Services [address] [place], [place] [id number] SCRN MAMM (CAD)W/CLAUDETTE BILAT MR#: [id number] Acct: [id number] Name: ANH EWING Rep #: [id number] : 1955 F 69 From: Giuseppe Crow DO PCP: Dr. oMni Velásquez MD Status: R EG CLI Study:SCRN MAMM (CAD)W/CLAUDETTE BILAT Date of Exa m: 06/10/24 Exam# [id number] Ordering Dr: Mary Velásquez MD EXAM: SCRN [...] be mailed to the patient. Reading Location: [id number] CC: Dr. Moni Velásquez MD ~ Management Intern: Signed [facility] Dexa Bone Density Studyon Dexa Bone Density Study [facility] Imaging Services [address] [place] [id number] Dexa Bone Density Study MR#: [id number] Acct: [id number] Name: ANH EWING Rep #: [id number] : 1955 F 69 From: Mey Mcdonough PCP: Dr. Moni Velásquez MD Status: REG CLI Study: Dexa Bone Density Study Date of Exam: 06/10/24 Exam# [id number] Ordering Dr: Moni Velásquez MD EXAM: DEXA [...] Recommend follow-up, if clinically warranted. Reading Location: [id number] CC: Dr. Moni Velásquez MD Management Intern: Signed Normal [facility] SCRN MAMM (CAD)W/CLAUDETTE BILATo n 06-10-2024 SCRN MAMM (CAD)W/CLAUDETTE BILAT [facility] Imaging Services [address] [place], [place] [address] SCRN MAMM (CAD)W/CLAUDETTE BILAT MR#: [id number] Acct: [id number] Name: GILDARDOANH SILVANO Rep #: [id number] : 1955 F 69 From: Mey Mcdonough PCP: Dr. Moni Velásquez MD Status: [facility] Study: SCRN MAMM (CAD)W/CLAUDETTE BILAT Date of Exam: 05/16 10/08 Exam# [id number] Ordering Dr: Moni Velásquez MD EXAM: SCRN [...] be mailed to the patient. Reading Location: [id number] CC: Dr. Moni Velásquez MD Management Intern: Signed Normal [facility] Internal Medicine Office Vis ito 05-19-2024 Internal Medicine Office Visit [facility] [place] [address] [place] [address] OFFICE VISIT Date of Service: 05/19/24 MR#: [id number] Acct: [id number] Name: ANH EWING Rep #: [id number] : 1955 Provider: Dr. Moni calderón MD Age/Sex: 69/F Location: [facility] Status: Signed Intake Vital Signs 02/18/24 09:48 [...] M FU Chief Complaint: Follow-up chronic conditions Education Program Specialist Required: No Accompanied by: Self Is patient [...] No juan (more content not included)... Normal [facility] Intact parathyroid hormone ( iPTH) measurementOrdered By: Andreina Cruz on 04-26-2024 Parathyroid Hormone (Intact) 73.8 pg/mL 18.4-80.1 [facility] PTHINon 04-26-2024 PTH 73.8 pg/mL Normal 18.4-80.1 [facility] Comment on above: Performed By: #### L 509.1000 #### [facility] [place], [address] Absolute lymphocyte countOrd ered By: Andreina Cruz on 04-23-2024 Lymphocytes Auto (Unsp spec) [#/Vol] 2.61 10*3/uL 0.83-4.51 [facility] Absolute neutrophil countOrd ered By: Andreina Cruz on 04-23-2024 Neutrophils (Bld) [#/Vol] 2.1 10*3/uL 2.0-7.7 [facility] Albumin to globulin ratioOrd ered By: Andreina Cruz on 04-23-2024 Albumin/Globulin [Mass ratio] 0.8 {ratio} Low 0.9-2.4 [facility] Automated lymphocyte count a s percentage of total leukocytesOrdered By: Andreina Cruz on 04-23-2024 Lymphocytes/100 WBC Auto (Unsp spec) 46.9 % High 19-41 [facility] Basophil percentageOrdered B y: Andreina Cruz on 04-23-2024 Basophils/100 WBC (Bld) 1.4 % High 0-1 [facility] Bilirubin, totalOrdered By: Andreina Cruz on 04-23-2024 Bilirubin [Mass/Vol] 0.50 mg/dL 0.20-1.00 [facility] Comment on above: For patients on eltr ombopag therapy, use of Dimension [place] TBIL is not recommended. Blood urea nitrogen (BUN)/cr eatinine ratioOrdered By: Andreina Cruz on 04-23-2024 Urea nitrogen/Creatinine [Mass ratio] 22.0 mg/mg High 10-20 [facility] CBC W/Diff, Automatedon Absolute Lymph 2.61 X10 3/uL Normal 0.83-4.51 [facility] Comment on above: Performed By: #### L 100.0100, L500.4050 #### [facility] Laboratory [address] [place], [address] Absolute Neut 2.1 X10 3/uL Normal 2.0-7.7 [facility] Comment on above: Performed By: #### L 100.0100, L500.4050 #### [facility] [address] [place], [address] Basophils/100 WBC (Bld) 1.4 % High 0-1 [facility] Comment on above: Performed By: #### L 100.0100, L500.4050 #### [facility] [address] [place], [address] Eosinophils/100 WBC (Bld) 1.8 % Normal 0-5 [facility] Comment on above: Performed By: #### L 100.0100, L500.4050 #### [facility] [address] [place], [address] Erythrocyte distribution width (RBC) [Ratio] 14.3 % Normal 11.6-14.6 [facility] Comment on above: Performed By: #### L 100.0100, L500.4050 #### [facility] [address] [place], [address] Hematocrit (Bld) [Volume fraction] 42.5 % Normal 37-47 [facility] Comment on above: Performed By: #### L 100.0100, L500.4050 #### [facility] [address] [place], [address] Hemoglobin (Bld) [Mass/Vol] 13.1 g/dL Normal 12.0-15.0 [facility] Comment on above: Performed By: #### L 100.0100, L500.4050 #### [facility] [address] [place], [address] IG% 0.400 Normal 0.0-0.9 [facility] Comment on above: Result Comment: IG% - Immature Granulocytes (promyelocytes, myelocytes and metamyelocytes) > 1% indicates that a LEFT SHIFT is Present. Performed By: #### L 100.0100, L500.4050 #### [facility] [address] [place], [address] Lymphocytes/100 WBC (Bld) 46.9 % High 19-41 [facility] Comment on above: Performed By: #### L 100.0100, L500.4050 #### [facility] [address] [place], [address] MCH (RBC) [Entitic mass] 28.2 pg Normal 27.0-32.0 [facility] Comment on above: Performed By: #### L 100.0100, L500.4050 #### [facility] [address] [place], [address] MCHC (RBC) [Mass/Vol] 30.8 g/dL Low 32-36 [facility] Comment on above: Performed By: #### L 100.0100, L500.4050 #### [facility] [address] [place], [address] MCV (RBC) [Entitic vol] 91.6 fL Normal 81-99 [facility] Comment on above: Performed By: #### L 100.0100, L500.4050 #### [facility] [address] [place], [address] Monocytes/100 WBC (Bld) 11.3 % High 0-10 [facility] Comment on above: Performed By: #### L 100.0100, L500.4050 #### [facility] [address] [place], [address] Neutrophils/100 WBC (Bld) 38.2 % Low 47-70 [facility] Comment on above: Performed By: #### L 100.0100, L500.4050 #### [facility] Laboratory [address] [place], [address] Nucleated RBC (Bld) [#/Vol] 0 10*3/uL Normal 0-5 [facility] Comment on above: Performed By: #### L 100.0100, L500.4050 #### [facility] [address] [place], [address] Platelet mean volume (Bld) [Entitic vol] 9.8 fL Normal 6.2-12.0 [facility] Comment on above: Performed By: #### L 100.0100, L500.4050 #### [facility] [address] [place], [address] Platelets (Bld) [#/Vol] 247 10*3/uL Normal 150-450 [facility] Comment on above: Performed By: #### L 100.0100, L500.4050 #### [facility] [address] [place], [address] RBC (Bld) [#/Vol] 4.64 10*6/uL Normal 4.2-5.4 [facility] Comment on above: Performed By: #### L 100.0100, L500.4050 #### [facility] [address] [place], [address] RDW SD 48.4 fl High 35.1-43.9 [facility] Comment on above: Performed By: #### L 100.0100, L500.4050 #### [facility] [address] [place], [address] WBC (Bld) [#/Vol] 5.6 10*3/uL Normal 4.4-11.0 [facility] Comment on above: Performed By: #### L 100.0100, L500.4050 #### [facility] [address] [place], [address] Carbon dioxide measurementOr dered By: Andreina Cruz on 04-23-2024 CO2 [Moles/Vol] 25.0 mmol/L 21.0-32.0 [facility] Chloride measurementOrdered By: Andreina Cruz on 04-23-2024 Chloride [Moles/Vol] 106 mmol/L 98-107 [facility] Comprehensive Metabolic Prof ilon 04-23-2024 Albumin [Mass/Vol] 3.1 g/dL Low 3.2-5.0 [facility] Comment on above: Performed By: #### L 100.0100, L500.4050 #### [facility] [address] [place], [address] Albumin/Globulin [Mass ratio] 0.8 {ratio} Low 0.9-2.4 [facility] Comment on above: Performed By: #### L 100.0100, L500.4050 #### [facility] [address] [place], [address] ALK P 76 U/L Normal 45-117 [facility] Comment on above: Performed By: #### L 100.0100, L500.4050 #### [facility] [address] [place], [address] ALT [Catalytic activity/Vol] 20 U/L Normal 13-56 [facility] Comment on above: Performed By: #### L 100.0100, L500.4050 #### [facility] [address] [place], [address] AST [Catalytic activity/Vol] 20 U/L Normal 15-37 [facility] Comment on above: Performed By: #### L 100.0100, L500.4050 #### [facility] [address] [place], [address] Bilirubin [Mass/Vol] 0.50 mg/dL Normal 0.20-1.00 [facility] Comment on above: Result Comment: For patients on eltrombopag therapy, use of Dimension [place] TBIL is not recommended. Performed By: #### L 100.0100, L500.4050 #### [facility] [address] [place], [address] BUN/CRE 22.0 RATIO High 10-20 [facility] Comment on above: Performed By: #### L 100.0100, L500.4050 #### [facility] [address] [place], [address] CA,Total 10.3 mg/dL High 8.5-10.1 [facility] Comment on above: Performed By: #### L 100.0100, L500.4050 #### [facility] [address] [place], [address] Chloride [Moles/Vol] 106 mmol/L Normal 98-107 [facility] Comment on above: Performed By: #### L 100.0100, L500.4050 #### [facility] [address] [place], [address] CO2 [Moles/Vol] 25.0 mmol/L Normal 21.0-32.0 [facility] Comment on above: Performed By: #### L 100.0100, L500.4050 #### [facility] [address] [place], [address] Creatinine [Mass/Vol] 1.09 mg/dL High 0.55-1.02 [facility] Comment on above: Result Comment: The validity of the calculated GFR GFRAA in patients over 70 years has not been determined. Clinical correlation is essential. Performed By: #### L 100.0100, L500.4050 #### [facility] [address] [place], [address] EST GFR - AA 64 mL/min Normal >60 [facility] Comment on above: Result Comment: Afri can Syrian GFR Calc Performed By: #### L 100.0100, L500.4050 #### [facility] Laboratory [address] [place], [address] GAP 7 Normal 5-15 [facility] Comment on above: Performed By: #### L 100.0100, L500.4050 #### [facility] Laboratory [address] [place], [address] GFR/1.73 sq M.predicted among non-blacks MDRD (S/P/Bld) [Vol rate/Area] 53 mL/min/{1.73_m2} Low >60 [facility] Comment on above: Result Comment: Non- GFR Calc Performed By: #### L 100.0100, L500.4050 #### [facility] Laboratory [address] [place], [address] Globulin (S) [Mass/Vol] 3.9 g/dL Normal 2.2-4.2 [facility] Comment on above: Performed By: #### L 100.0100, L500.4050 #### [facility] [address] [place], [address] Glucose [Mass/Vol] 108 mg/dL High 74-106 [facility] Comment on above: Result Comment: Fast ing Glucose result from 100 to 125 mg/dL suggests IMPAIRED HOMEOSTASIS per A.D.A. criteria. Performed By: #### L 100.0100, L500.4050 #### [facility] [address] [place], [address] Potassium [Moles/Vol] 3.8 mmol/L Normal 3.5-5.1 [facility] Comment on above: Performed By: #### L 100.0100, L500.4050 #### [facility] [address] [place], [address] Sodium [Moles/Vol] 139 mmol/L Normal 136-145 [facility] Comment on above: Performed By: #### L 100.0100, L500.4050 #### [facility] [address] [place], [address] T PROT 7.0 g/dL Normal 6.4-8.2 [facility] Comment on above: Performed By: #### L 100.0100, L500.4050 #### [facility] [address] [place], [address] Urea nitrogen [Mass/Vol] 24 mg/dL High 7-18 [facility] Comment on above: Performed By: #### L 100.0100, L500.4050 #### [facility] Laboratory [address] [place], [address] Eosinophil percentageOrdered By: Andreina Cruz on 04-23-2024 Eosinophils/100 WBC (Bld) 1.8 % 0-5 [facility] Erythrocyte distribution wid th ratioOrdered By: Andreina Cruz on 04-23-2024 Erythrocyte distribution width (RBC) [Ratio] 14.3 % 11.6-14.6 [facility] Erythrocyte distribution wid th standard deviationOrdered By: Andreina Cruz on 04-23-2024 Erythrocyte distribution width (RBC) [Entitic vol] 48.4 fL High 35.1-43.9 [facility] Erythrocyte distribution width (RBC) [Ratio] 48.4 fl High 35.1-43.9 [facility] Estimated glomerular filtrat ion rate (GFR) AmericanOrdered By: Andreina Cruz on 04-23-2024 Estimated GFR (MDRD) Amer 64 mL/min >60 [facility] Comment on above: GFR Calc Glomerular filtration rate ( GFR) estimationOrdered By: Andreina Cruz on 04-23-2024 Estimated GFR (MDRD) Non-Af Amer 53 mL/min Low >60 [facility] Comment on above: Non- GFR Calc GFR/1.73 sq M.predicted among non-blacks MDRD (S/P/Bld) [Vol rate/Area] 53 mL/min/{1.73_m2} Low >60 [facility] Comment on above: Non- GFR Calc Glucose measurementOrdered B y: Andreina Cruz on 04-23-2024 Glucose [Mass/Vol] 108 mg/dL High 74-106 [facility] Comment on above: Fasting Glucose resu lt from 100 to 125 mg/dL suggests IMPAIRED HOMEOSTASIS per A.D.A. criteria. Hematocrit Auto (Bld) [Volum e fraction]Ordered By: Andreina Cruz on 04-23-2024 Hematocrit (Bld) [Volume fraction] 42.5 % 37-47 [facility] Hemoglobin measurementOrdere d By: Andreina Cruz on 04-23-2024 Hemoglobin (Bld) [Mass/Vol] 13.1 g/dL 12.0-15.0 [facility] Immature granulocytes/100 WB C Auto (Bld)Ordered By: Andreina Cruz on 04-23-2024 Immature granulocytes/100 WBC (Bld) 0.400 % 0.0-0.9 [facility] Comment on above: IG% - Immature Granu locytes (promyelocytes, myelocytes and metamyelocytes) > 1% indicates that a LEFT SHIFT is Present. Laboratory - Chemistry and C hemistry - challengeOrdered By: Andreina Cruz on 04-23-2024 AST [Catalytic activity/Vol] 20 U/L 15-37 [facility] Lymphocytes Auto (Unsp spec) [#/Vol]Ordered By: Andreina Cruz on 04-23-2024 Lymphocytes (Bld) [#/Vol] 2.61 10*3/uL 0.83-4.51 [facility] Lymphocytes/100 WBC Auto (Un sp spec)Ordered By: Andreina Cruz on 04-23-2024 Lymphocytes/100 WBC (Bld) 46.9 % High 19-41 [facility] MCV (mean corpuscular volume ) determinationOrdered By: Andreina Cruz on 04-23-2024 MCV (RBC) [Entitic vol] 91.6 fL 81-99 [facility] Mean corpuscular hemoglobin (MCH) determinationOrdered By: Andreina Cruz on 04-23-2024 MCH (RBC) [Entitic mass] 28.2 pg 27.0-32.0 [facility] Mean corpuscular hemoglobin concentration (MCHC) determinationOrdered By: Andreina Cruz on 04-23-2024 MCHC (RBC) [Mass/Vol] 30.8 g/dL Low 32-36 [facility] Mean platelet volume determi nationOrdered By: Andreina Cruz on 04-23-2024 Platelet mean volume (Bld) [Entitic vol] 9.8 fL 6.2-12.0 [facility] Monocyte percentageOrdered B y: Andreina Cruz on 04-23-2024 Monocytes/100 WBC (Bld) 11.3 % High 0-10 [facility] Neutrophil percentageOrdered By: Andreina Cruz on 04-23-2024 Neutrophils/100 WBC (Bld) 38.2 % Low 47-70 [facility] Nucleated red blood cell per centageOrdered By: Andreina Cruz on 04-23-2024 Nucleated RBC/100 WBC (Bld) [Ratio] 0 % 0-5 [facility] Platelet countOrdered By: Marielos Cruz on 04-23-2024 Platelets (Bld) [#/Vol] 247 10*3/uL 150-450 [facility] Potassium measurementOrdered By: Andreina Cruz on 04-23-2024 Potassium [Moles/Vol] 3.8 mmol/L 3.5-5.1 [facility] RBC Auto (Bld) [#/Vol]Ordere d By: Andreina Cruz on 04-23-2024 RBC (Bld) [#/Vol] 4.64 10*6/uL 4.2-5.4 [facility] Serum anion gap measurementO rdered By: Andreina Cruz on 04-23-2024 Anion gap [Moles/Vol] 7 mmol/L 5-15 [facility] Serum globulin measurementOr dered By: Andreina Cruz on 04-23-2024 Globulin (S) [Mass/Vol] 3.9 g/dL 2.2-4.2 [facility] Serum or plasma alanine rees otransferase (ALT) measurementOrdered By: Andreina Cruz on 04-23-2024 ALT [Catalytic activity/Vol] 20 U/L 13-56 [facility] Serum or plasma albumin griffin urement (mass/volume)Ordered By: Andreina Cruz on 04-23-2024 Albumin [Mass/Vol] 3.1 g/dL Low 3.2-5.0 [facility] Serum or plasma alkaline perez sphatase measurementOrdered By: Andreina Cruz on 04-23-2024 ALP [Catalytic activity/Vol] 76 U/L 45-117 [facility] Serum or plasma calcium griffin urement (mass/volume)Ordered By: Andreina Cruz on 04-23-2024 Calcium [Mass/Vol] 10.3 mg/dL High 8.5-10.1 [facility] Serum or plasma creatinine m easurement (mass/volume)Ordered By: Andreina Cruz on 04-23-2024 Creatinine [Mass/Vol] 1.09 mg/dL High 0.55-1.02 [facility] Comment on above: The validity of the calculated GFR & GFRAA in patients over 70 years has not been determined. Clinical correlation is essential. Serum or plasma urea nitroge n measurement (mass/volume)Ordered By: Andreina Cruz on 04-23-2024 Urea nitrogen [Mass/Vol] 24 mg/dL High 7-18 [facility] Sodium levelOrdered By: Jerzy Cruz on 04-23-2024 Sodium [Moles/Vol] 139 mmol/L 136-145 [facility] Total proteinOrdered By: Denise Cruz on 04-23-2024 Protein [Mass/Vol] 7.0 g/dL 6.4-8.2 [facility] White blood cell (WBC) count Ordered By: Andreina Cruz on 04-23-2024 WBC (Bld) [#/Vol] 5.6 10*3/uL 4.4-11.0 [facility] Internal Medicine Office Vis marixa 02-18-2024 Internal Medicine Office Visit [facility] [address] [place] [address] [place] [address] OFFICE VISIT Date of Service: 02/18/24 MR#: [id number] Acct: [id number] Name: ANH EWING Rep #: [id number] : 1955 Provider: Dr. Moni calderón MD Age/Sex: 69/F Location: [facility] Status: Signed with Addenda ADDENDUM by ALLA Castillo on 02/18/24 at 1018 Office Procedure Documentation entered by Gabriella Castillo MA 02/18/24 10:18: Immunizations Fluad Triv (65y up)(PF) 45 mcg (15 mcg x 3)/0.5 mL IM syringe Performing Provider: Moni Velásquez MD Performing Location: [facility] Administered by: Gabriella Castillo MA on 02/18/24 10:17 Dose Route Admin Location Dispensed Lot Number Expiration Date [facility] Man ufacturer 45 mcg IM Left Deltoid 0.5 mL [id number] 07/16/24 76643-390-97 [employer] VIS Given Date VIS Provided VIS [...] 2 M FU Chief Complaint: 2m fu Education Program Specialist Required: No Accompanied by: Self Is patient [...] you fallen in the past year?: No [facility] Medical History (Updated 02/18/24 @ 10:08 by [...] 02/18/24 @ (more content not included)... Normal [facility] CBC W/Diff, Automatedon 01-15 Absolute Lymph 1.81 X10 3/uL Normal 0.83-4.51 [facility] Comment on above: Performed By: #### L 100.0100, L500.4050 #### [facility] Laboratory [address] [place], [address] Absolute Neut 4.8 X10 3/uL Normal 2.0-7.7 [facility] Comment on above: Performed By: #### L 100.0100, L500.4050 #### [facility] [address] [place], [address] Basophils/100 WBC (Bld) 0.9 % Normal 0-1 [facility] Comment on above: Performed By: #### L 100.0100, L500.4050 #### [facility] [address] [place], [address] Eosinophils/100 WBC (Bld) 0.0 % Normal 0-5 [facility] Comment on above: Performed By: #### L 100.0100, L500.4050 #### [facility] [address] [place], [address] Erythrocyte distribution width (RBC) [Ratio] 14.2 % Normal 11.6-14.6 [facility] Comment on above: Performed By: #### L 100.0100, L500.4050 #### [facility] [address] [place], [address] Hematocrit (Bld) [Volume fraction] 41.6 % Normal 37-47 [facility] Comment on above: Performed By: #### L 100.0100, L500.4050 #### [facility] [address] [place], [address] Hemoglobin (Bld) [Mass/Vol] 13.0 g/dL Normal 12.0-15.0 [facility] Comment on above: Performed By: #### L 100.0100, L500.4050 #### [facility] [address] [place], [address] IG% 0.700 Normal 0.0-0.9 [facility] Comment on above: Result Comment: IG% - Immature Granulocytes (promyelocytes, myelocytes and metamyelocytes) > 1% indicates that a LEFT SHIFT is Present. Performed By: #### L 100.0100, L500.4050 #### [facility] [address] [place], [address] Lymphocytes/100 WBC (Bld) 23.6 % Normal 19-41 [facility] Comment on above: Performed By: #### L 100.0100, L500.4050 #### [facility] [address] [place], [address] MCH (RBC) [Entitic mass] 28.9 pg Normal 27.0-32.0 [facility] Comment on above: Performed By: #### L 100.0100, L500.4050 #### [facility] [address] [place], [address] MCHC (RBC) [Mass/Vol] 31.3 g/dL Low 32-36 [facility] Comment on above: Performed By: #### L 100.0100, L500.4050 #### [facility] [address] [place], [address] MCV (RBC) [Entitic vol] 92.4 fL Normal 81-99 [facility] Comment on above: Performed By: #### L 100.0100, L500.4050 #### [facility] [address] [place], [address] Monocytes/100 WBC (Bld) 11.8 % High 0-10 [facility] Comment on above: Performed By: #### L 100.0100, L500.4050 #### [facility] [address] [place], [address] Neutrophils/100 WBC (Bld) 63.0 % Normal 47-70 [facility] Comment on above: Performed By: #### L 100.0100, L500.4050 #### [facility] [address] [place], [address] Nucleated RBC (Bld) [#/Vol] 0 10*3/uL Normal 0-5 [facility] Comment on above: Performed By: #### L 100.0100, L500.4050 #### [facility] [address] [place], [address] Platelet mean volume (Bld) [Entitic vol] 9.8 fL Normal 6.2-12.0 [facility] Comment on above: Performed By: #### L 100.0100, L500.4050 #### [facility] [address] [place], [address] Platelets (Bld) [#/Vol] 299 10*3/uL Normal 150-450 [facility] Comment on above: Performed By: #### L 100.0100, L500.4050 #### [facility] [address] [place], [address] RBC (Bld) [#/Vol] 4.50 10*6/uL Normal 4.2-5.4 [facility] Comment on above: Performed By: #### L 100.0100, L500.4050 #### [facility] [address] [place], [address] RDW SD 47.9 fl High 35.1-43.9 [facility] [facility] Comment on above: Performed By: #### L 100.0100, L500.4050 #### [facility] [address] [place], [address] WBC (Bld) [#/Vol] 7.7 10*3/uL Normal 4.4-11.0 [facility] Comment on above: Performed By: #### L 100.0100, L500.4050 #### [facility] [address] [place], [address] Comprehensive Metabolic [facility] 01-30-2024 Albumin [Mass/Vol] 3.2 g/dL Normal 3.2-5.0 [facility] Comment on above: Performed By: #### L 100.0100, L500.4050 #### [facility] [address] [place], [address] Albumin/Globulin [Mass ratio] 0.9 {ratio} Normal 0.9-2.4 [facility] Comment on above: Performed By: #### L 100.0100, L500.4050 #### [facility] [address] [place], [address] ALK P 79 U/L Normal 45-117 [facility] Comment on above: Performed By: #### L 100.0100, L500.4050 #### [facility] [address] [place], [address] ALT [Catalytic activity/Vol] 17 U/L Normal 13-56 [facility] Comment on above: Performed By: #### L 100.0100, L500.4050 #### [facility] [address] [place], [address] AST [Catalytic activity/Vol] 18 U/L Normal 15-37 [facility] Comment on above: Performed By: #### L 100.0100, L500.4050 #### [facility] [address], [address] Bilirubin [Mass/Vol] 0.40 mg/dL Normal 0.20-1.00 [facility] Comment on above: Result Comment: For patients on eltrombopag therapy, use of Dimension [place] TBIL is not recommended. Performed By: #### L 100.0100, L500.4050 #### [facility] [address] [place], [address] BUN/CRE 29.9 RATIO High 10-20 [facility] Comment on above: Performed By: #### L 100.0100, L500.4050 #### [facility] [address] [place], [address] CA,Total 9.9 mg/dL Normal 8.5-10.1 [facility] Comment on above: Performed By: #### L 100.0100, L500.4050 #### [facility] [address] [place], [address] Chloride [Moles/Vol] 111 mmol/L High 98-107 [facility] Comment on above: Performed By: #### L 100.0100, L500.4050 #### [facility] [address] [place], [address] CO2 [Moles/Vol] 24.0 mmol/L Normal 21.0-32.0 [facility] Comment on above: Performed By: #### L 100.0100, L500.4050 #### [facility] [address] [place], [address] Creatinine [Mass/Vol] 1.17 mg/dL High 0.55-1.02 [facility] Comment on above: Result Comment: The validity of the calculated GFR GFRAA in patients over 70 years has not been determined. Clinical correlation is essential. Performed By: #### L 100.0100, L500.4050 #### [facility] [address] [place], [address] EST GFR - AA 59 mL/min Low >60 [facility] Comment on above: Result Comment: Afri can Syrian GFR Calc Performed By: #### L 100.0100, L500.4050 #### [facility] [address] [place], [address] GAP 7 Normal 5-15 [facility] Comment on above: Performed By: #### L 100.0100, L500.4050 #### [facility] [address] [place], [address] GFR/1.73 sq M.predicted among non-blacks MDRD (S/P/Bld) [Vol rate/Area] 49 mL/min/{1.73_m2} Low >60 [facility] Comment on above: Result Comment: Non- GFR Calc Performed By: #### L 100.0100, L500.4050 #### [facility] [address] [place], [address] Globulin (S) [Mass/Vol] 3.7 g/dL Normal 2.2-4.2 [facility] Comment on above: Performed By: #### L 100.0100, L500.4050 #### [facility] [address] [place], [address] Glucose [Mass/Vol] 123 mg/dL High 74-106 [facility] Comment on above: Result Comment: Fast ing Glucose result from 100 to 125 mg/dL suggests IMPAIRED HOMEOSTASIS per A.D.A. criteria. Performed By: #### L 100.0100, L500.4050 #### [facility] [address] [place], [address] Potassium [Moles/Vol] 3.6 mmol/L Normal 3.5-5.1 [facility] Comment on above: Performed By: #### L 100.0100, L500.4050 #### [facility] [address] [place], [address] Sodium [Moles/Vol] 142 mmol/L Normal 136-145 [facility] Comment on above: Performed By: #### L 100.0100, L500.4050 #### [facility] [address] [place], [address] T PROT 6.9 g/dL Normal 6.4-8.2 [facility] Comment on above: Performed By: #### L 100.0100, L500.4050 #### [facility] [address] [place], [address] Urea nitrogen [Mass/Vol] 35 mg/dL High 7-18 [facility] Comment on above: Performed By: #### L 100.0100, L500.4050 #### [facility] [address] [place], [address] Spine Lumbar (Routine)on Spine Lumbar (Routine) [facility] Imaging Services [address] [place] [address] Spine Lumbar (Routine) MR#: [id number] Acct: [id number] Name: ANH EWING Rep #: [id number] : 1955 F 68 From: Bo David MD PCP: Dr. Moni Velásquez MD Status: REG CLI Study: Spine Lumbar (Routine) Date of Exam: 01/12/24 Exam# [id number] Ordering Dr: Bo Fitzgerald MD [id number] STUDY: MRI LUMBAR SPINE WITHOUT CONTRAST REASON [...] Moni Velásquez MD; Dr. Bo Fitzgerald MD Management Intern: Signed Normal [facility] Brain/Head without Contrasto n 01-10-2024 Brain/Head without Contrast [facility] Imaging Services [address] [place] [address] [id number] Brain/Head without Contrast MR#: [id number] Acct: [id number] Name: ANH EWING Rep #: [id number] : 1955 F 68 From: Casa Benitez DO PCP: Dr. Moni Velásquez MD Status: REG Study: Brain/Head without Contrast Date of Exam: 12/16 09/07 Exam# [id number] Ordering Dr: Syed Wood DO [id number] STUDY: CT BRAIN WITHOUT CONTRAST REASON FOR [...] 17:59 EDT Reading Location ID and State: [facility] / [place] Tel [phone], Service support , CC: Dr. Moni Velásquez MD; Dr. Syed Wood DO Management Intern: Signed Normal [facility] Emergency Department Summary on 01-10-2024 Emergency Department Summary [facility] Medical Records Department [address] [place] [address] Emergency Department Summary 01/10/24 MR#: [id number] Acct: [id number] Name: ANH EWING Rep #: [id number] : 1955 68 From: Syed Wood DO PCP: Dr. Moni Velásquez MD Status:[facility] ER Location: ED HPI HPI - Fall History of Present Illness Chief Complaint: Fall PFSH PFS Medical History Lumbar radiculopathy Paroxysmal cough Left [...] 6 Secondary (more content not included)... Normal [facility] Spine Cervical without Contr ason 01-10-2024 Spine Cervical without Contras [facility] Imaging Services [address] [place] [address] Spine Cervical without Contras MR#: [id number] Acct: [id number] Name: ANH EWING Rep #: [id number] : 1955 F 68 From: Casa Benitez DO PCP: Dr. Moni Velásquez MD Status: REG ER Study: Spine Cervical without Contras Date of Exam: 1 Exam# [id number] Ordering Dr: Syed Wood DO [id number] STUDY: CT CERVICAL SPINE WITHOUT CONTRAST REASON [...] Signed: Casa Benitez DO at 18:14 EDT Reading Location ID and State: [facility] / [place] Tel [phone], Service support , CC: Dr. Moni Velásquez MD; Dr. Syed Wood DO Management Intern: Signed Normal [facility] Absolute lymphocyte countOrd ered By: Andreina Cruz on 05-16-2023 Lymphocytes Auto (Unsp spec) [#/Vol] 2.12 10*3/uL 0.83-4.51 [facility] Automated lymphocyte count a s percentage of total leukocytesOrdered By: Andreina Cruz on 05-16-2023 Lymphocytes/100 WBC Auto (Unsp spec) 38.7 % 19-41 [facility] Basophil percentageOrdered B y: Andreina Cruz on 05-16-2023 Basophils/100 WBC (Bld) 1.1 % 0-1 [facility] Bilirubin [Mass/Vol] 0.50 mg/dL 0.20-1.00 [facility] Comment on above: For patients on eltr ombopag therapy, use of Dimension [place] TBIL is not recommended. Chloride [Moles/Vol] 109 mmol/L 98-107 [facility] Eosinophils/100 WBC (Bld) 4.0 % 0-5 [facility] Glucose [Mass/Vol] 103 mg/dL 74-106 [facility] Comment on above: Fasting Glucose resu lt from 100 to 125 mg/dL suggests IMPAIRED HOMEOSTASIS per A.D.A. criteria. Hemoglobin (Bld) [Mass/Vol] 12.6 g/dL 12.0-15.0 [facility] Monocytes/100 WBC (Bld) 14.4 % 0-10 [facility] Neutrophils (Bld) [#/Vol] 2.3 10*3/uL 2.0-7.7 [facility] Neutrophils/100 WBC (Bld) 41.4 % 47-70 [facility] Potassium [Moles/Vol] 3.9 mmol/L 3.5-5.1 [facility] Protein [Mass/Vol] 7.5 g/dL 6.4-8.2 [facility] Sodium [Moles/Vol] 140 mmol/L 136-145 [facility] WBC (Bld) [#/Vol] 5.5 10*3/uL 4.4-11.0 [facility] Determination of erythrocyte mean corpuscular volume (MCV)Ordered By: Andreina Cruz on 05-16-2023 MCV (RBC) [Entitic vol] 91.2 fL 81-99 [facility] Erythrocyte distribution wid th ratioOrdered By: Andreina Cruz on 05-16-2023 Erythrocyte distribution width (RBC) [Ratio] 18.3 % 11.6-14.6 [facility] Erythrocyte distribution wid th standard deviationOrdered By: Andreina Cruz on 05-16-2023 Erythrocyte distribution width (RBC) [Entitic vol] 60.8 fL 35.1-43.9 [facility] Hematocrit Auto (Bld) [Volum e fraction]Ordered By: Andreina Cruz on 05-16-2023 Hematocrit (Bld) [Volume fraction] 41.5 % 37-47 [facility] Immature granulocytes/100 WB C Auto (Bld)Ordered By: [facility] Anthony on 05-16-2023 Immature granulocytes/100 WBC (Bld) 0.400 % 0.0-0.9 [facility] Comment on above: IG% - Immature Granu locytes (promyelocytes, myelocytes and metamyelocytes) > 1% indicates that a LEFT SHIFT is Present. Laboratory - Chemistry and C hemistry - challengeOrdered By: Andreina Cruz on 05-16-2023 Albumin/Globulin [Mass ratio] 0.8 {ratio} 0.9-2.4 [facility] ALP [Catalytic activity/Vol] 73 U/L 45-117 [facility] ALT [Catalytic activity/Vol] 19 U/L 13-56 [facility] CO2 [Moles/Vol] 26.0 mmol/L 21.0-32.0 [facility] Globulin (S) [Mass/Vol] 4.1 g/dL 2.2-4.2 [facility] Urea nitrogen/Creatinine [Mass ratio] 16.1 mg/mg 10-20 [facility] - Hematology and Cell countsOrdered By: Andreina Cruz on 05-16-2023 MCH (RBC) [Entitic mass] 27.7 pg 27.0-32.0 [facility] MCHC (RBC) [Mass/Vol] 30.4 g/dL 32-36 [facility] Nucleated RBC/100 WBC (Bld) [Ratio] 0 % 0-5 [facility] Platelet mean volume (Bld) [Entitic vol] 9.5 fL 6.2-12.0 [facility] Platelets (Bld) [#/Vol] 246 10*3/uL 150-450 [facility] No Panel InformationOrdered By: Andreina Cruz on 05-16-2023 Estimated GFR (MDRD) Amer 62 mL/min >60 [facility] Comment on above: GFR Calc Estimated GFR (MDRD) Non-Af Amer 51 mL/min >60 [facility] Comment on above: Non- GFR Calc RBC Auto (Bld) [#/Vol]Ordere d By: Andreina Cruz on 05-16-2023 RBC (Bld) [#/Vol] 4.55 10*6/uL 4.2-5.4 [facility] Serum or plasma calcium griffin urement (mass/volume)Ordered By: Andreina Cruz on 05-16-2023 Calcium [Mass/Vol] 10.8 mg/dL 8.5-10.1 [facility] Serum or plasma creatinine m easurement (mass/volume)Ordered By: Andreina Cruz on 05-16-2023 Creatinine [Mass/Vol] 1.12 mg/dL 0.55-1.02 [facility] Comment on above: The validity of the calculated GFR & GFRAA in patients over 70 years has not been determined. Clinical correlation is essential. Serum or plasma urea nitroge n measurement (mass/volume)Ordered By: Andreina Cruz on 05-16-2023 Urea nitrogen [Mass/Vol] 18 mg/dL 7-18 [facility] Thin prep Papanicolaou smear with manual screeningOrdered By: Andreina Cruz on 05-16-2023 Thin prep Papanicolaou smear with manual screening 3.4 g/dL 3.2-5.0 [facility] Thin prep Papanicolaou smear with manual screening 22 U/L 15-37 [facility] Thin prep Papanicolaou smear with manual screening 5 5-15 [facility] 24 hour urine dopamine measu rement (mass/time)Ordered By: Freddie Fraire on 05-12-2023 DOPamine (24H U) [Mass/Time] 257 ug/24 hr 65-610 [facility] Comment on above: [facility] ORIGINAL REPORT ON FILE IN LAB CONTAINS ADDITIONAL TEST SITE INFORMATION. 24 hour urine free cortisol measurement (mass/time)Ordered By: Freddie Fraire on 05-12-2023 Cortisol Free (24H U) [Mass/Time] 9 ug/24 hr 6-42 [facility] Comment on above: Performed at: [address] [id number] Director: Beth Moore MD, Phone: [phone] No Panel InformationOrdered By: Freddie Fraire on 05-12-2023 Urine Epinephrine 24 Hour < 5 ug/24 hr 0-20 [facility] Urine Norepinephrine 24 Hour 60 ug/24 hr 0-135 [facility] Quantitative urine free gonzalez isol measurement (mass/volume)Ordered By: Freddie Fraire on 05-12-2023 Cortisol Free (U) [Mass/Vol] 6 ug/L Undefined [facility] Urine dopamine measurement ( mass/volume)Ordered By: Freddie Fraire on 05-12-2023 DOPamine (U) [Mass/Vol] 171 ug/L Undefined [facility] Urine epinephrine measuremen t (mass/volume)Ordered By: Freddie Fraire on 05-12-2023 EPINEPHrine (U) [Mass/Vol] < 3 ug/L Undefined [facility] Urine norepinephrine measure ment (mass/volume)Ordered By: Freddie Fraire on 05-12-2023 Norepinephrine (U) [Mass/Vol] 40 ug/L Undefined [facility] Basophil percentageOrdered B y: Freddie Fraire on 05-08-2023 Bilirubin [Mass/Vol] 0.50 mg/dL 0.20-1.00 [facility] Comment on above: For patients on eltr ombopag therapy, use of Dimension [place] TBIL is not recommended. Chloride [Moles/Vol] 106 mmol/L 98-107 [facility] Glucose [Mass/Vol] 109 mg/dL 74-106 [facility] Comment on above: Fasting Glucose resu lt from 100 to 125 mg/dL suggests IMPAIRED HOMEOSTASIS per A.D.A. criteria. Potassium [Moles/Vol] 3.7 mmol/L 3.5-5.1 [facility] Protein [Mass/Vol] 7.4 g/dL 6.4-8.2 [facility] Sodium [Moles/Vol] 138 mmol/L 136-145 [facility] Iron measurement (mass/mass) Ordered By: Freddie Fraire on 05-08-2023 Iron (Unsp spec) [Mass/Mass] 91 ug/dL 50-170 [facility] - Chemistry and C hemistry - challengeOrdered By: Freddie Fraire on 05-08-2023 Albumin/Globulin [Mass ratio] 0.8 {ratio} 0.9-2.4 [facility] ALP [Catalytic activity/Vol] 79 U/L 45-117 [facility] ALT [Catalytic activity/Vol] 19 U/L 13-56 [facility] CO2 [Moles/Vol] 27.0 mmol/L 21.0-32.0 [facility] Cobalamin (Vitamin B12) [Mass/Vol] 272 pg/mL 211-911 [facility] Ferritin [Mass/Vol] 745 ng/mL 8-252 [facility] Globulin (S) [Mass/Vol] 4.1 g/dL 2.2-4.2 [facility] Urea nitrogen/Creatinine [Mass ratio] 22.0 mg/mg 10-20 [facility] No Panel InformationOrdered By: Freddie Fraire on 05-08-2023 Dehydroepiandrosterone Sulfate 74.5 ug/dL 20.4-186.6 [facility] Comment on above: Performed at: [address] [id number] Director: Chad Haskins PhD, Phone: [phone] Estimated GFR (MDRD) Amer 56 mL/min >60 [facility] Comment on above: GFR Calc Estimated GFR (MDRD) Non-Af Amer 46 mL/min >60 [facility] Comment on above: Non- GFR Calc Total Iron Binding Capacity 391 ug/dL 250-450 [facility] Serum or plasma calcium griffin urement (mass/volume)Ordered By: Freddie Fraire on 05-08-2023 Calcium [Mass/Vol] 10.4 mg/dL 8.5-10.1 [facility] Serum or plasma creatinine m easurement (mass/volume)Ordered By: Freddie Fraire on 05-08-2023 Creatinine [Mass/Vol] 1.23 mg/dL 0.55-1.02 [facility] Comment on above: The validity of the calculated GFR & GFRAA in patients over 70 years has not been determined. Clinical correlation is essential. Serum or plasma thyroid stim ulating hormone (TSH) measurement (units/volume)Ordered By: Freddie Fraire on 05-08-2023 TSH Qn 1.28 uIU/mL 0.358-3.74 [facility] Serum or plasma thyroxine (T 4) measurement (mass/volume)Ordered By: Freddie Fraire on 05-08-2023 T4 [Mass/Vol] 8.7 ug/dL 4.8-13.9 [facility] Serum or plasma urea nitroge n measurement (mass/volume)Ordered By: Freddie Fraire on 05-08-2023 Urea nitrogen [Mass/Vol] 27 mg/dL 7-18 [facility] Thin prep Papanicolaou smear with manual screeningOrdered By: Freddie Fraire on 05-08-2023 Thin prep Papanicolaou smear with manual screening 3.3 g/dL 3.2-5.0 [facility] Thin prep Papanicolaou smear with manual screening 23 U/L 15-37 [facility] Thin prep Papanicolaou smear with manual screening 5 5-15 [facility] No Panel InformationOrdered By: Dayne Richey on 04-30-2023 Adrenocorticotropic Hormone < 1.5 pg/mL 7.2-63.3 [facility] Comment on above: ACTH reference inter digna for samples collected between 7 and10 AM.Performed at: - [facility] [id number] Director: Chad Haskins PhD, Phone: [phone] Serum or plasma cortisol luisito surement (mass/volume)Ordered By: Dayne Richey on 04-30-2023 Cortisol [Mass/Vol] 2.40 ug/dL 3.44-22.45 [facility] Comment on above: Adult (AM) 5.27 - 22 .45 ug/dL Adult (PM) 3.44 - 16.76 ug/dLPlease note revised CORTISOL reference range effective 2019. CNOVSPon 04-25-2023 CNOVSP Visit (SP) Office ([place]) SHAYAN EWINGYCMary Hernandez ([id number]) 1955 F CHT Date Time Provider Department 04/25/23 10:30 AM ARIC GUERRIER During your visit today, we recorded the following information about you: Temperature Pulse Blood pressure Weight 97.1 degrees 60/minute 105/70 122.2 kg Height 1.642 m Aric Guerrier MD 04/25/2023 3:47 PM Signed HISTORY OF PRESENT ILLNESS: Anhmary Ewing is a 68 year old female [...] than HPI (more content not included)... Normal [facility] Absolute lymphocyte countOrd ered By: Rickie Hale on 04-09-2023 Lymphocytes Auto (Unsp spec) [#/Vol] 2.06 10*3/uL 0.83-4.51 [facility] Automated lymphocyte count a s percentage of total leukocytesOrdered By: Rickie Hale on 04-09-2023 Lymphocytes/100 WBC Auto (Unsp spec) 18.2 % 19-41 [facility] Basophil percentageOrdered B y: Rickie Hale on 04-09-2023 Basophils/100 WBC (Bld) 0.3 % 0-1 [facility] Chloride [Moles/Vol] 104 mmol/L 98-107 [facility] Eosinophils/100 WBC (Bld) 0.6 % 0-5 [facility] Glucose [Mass/Vol] 111 mg/dL 74-106 [facility] Comment on above: Fasting Glucose resu lt from 100 to 125 mg/dL suggests IMPAIRED HOMEOSTASIS per A.D.A. criteria. Hemoglobin (Bld) [Mass/Vol] 10.2 g/dL 12.0-15.0 [facility] Monocytes/100 WBC (Bld) 10.4 % 0-10 [facility] Neutrophils (Bld) [#/Vol] 7.9 10*3/uL 2.0-7.7 [facility] Neutrophils/100 WBC (Bld) 69.4 % 47-70 [facility] Potassium [Moles/Vol] 3.5 mmol/L 3.5-5.1 [facility] Sodium [Moles/Vol] 136 mmol/L 136-145 [facility] WBC (Bld) [#/Vol] 11.3 10*3/uL 4.4-11.0 [facility] Determination of erythrocyte mean corpuscular volume (MCV)Ordered By: Rickie Hale on 04-09-2023 MCV (RBC) [Entitic vol] 87.3 fL 81-99 [facility] Erythrocyte distribution wid th ratioOrdered By: Rickie Hale on 04-09-2023 Erythrocyte distribution width (RBC) [Ratio] 15.0 % 11.6-14.6 [facility] Erythrocyte distribution wid th standard deviationOrdered By: Rickie Hale on 04-09-2023 Erythrocyte distribution width (RBC) [Entitic vol] 48.3 fL 35.1-43.9 [facility] Hematocrit Auto (Bld) [Volum e fraction]Ordered By: Rickie Hale on 04-09-2023 Hematocrit (Bld) [Volume fraction] 32.4 % 37-47 [facility] Immature granulocytes/100 WB C Auto (Bld)Ordered By: Rickie Hale on 04-09-2023 Immature granulocytes/100 WBC (Bld) 1.100 % 0.0-0.9 [facility] Comment on above: IG% - Immature Granu locytes (promyelocytes, myelocytes and metamyelocytes) > 1% indicates that a LEFT SHIFT is Present. Laboratory - Chemistry and C hemistry - challengeOrdered By: Rickie Hale on 04-09-2023 CO2 [Moles/Vol] 27.0 mmol/L 21.0-32.0 [facility] Urea nitrogen/Creatinine [Mass ratio] 28.0 mg/mg 10-20 [facility] Laboratory - Hematology and Cell countsOrdered By: Rickie Hale on 04-09-2023 MCH (RBC) [Entitic mass] 27.5 pg 27.0-32.0 [facility] MCHC (RBC) [Mass/Vol] 31.5 g/dL 32-36 [facility] Nucleated RBC/100 WBC (Bld) [Ratio] 0 % 0-5 [facility] Platelets (Bld) [#/Vol] 273 10*3/uL 150-450 [facility] No Panel InformationOrdered By: Rickie Hale on 04-09-2023 Estimated Creatinine Clearance Calc 56.02 ml/min [facility] Estimated GFR (MDRD) Amer 55 mL/min >60 [facility] Comment on above: GFR Calc Estimated GFR (MDRD) Non-Af Amer 45 mL/min >60 [facility] Comment on above: Non- GFR Calc Platelet mean volume Jaun-Ec ker (Bld) [Entitic vol]Ordered By: Rickie Hale on 04-09-2023 Platelet mean volume (Bld) [Entitic vol] 9.0 fL 6.2-12.0 [facility] RBC Auto (Bld) [#/Vol]Ordere d By: Rickie Hale on 04-09-2023 RBC (Bld) [#/Vol] 3.71 10*6/uL 4.2-5.4 [facility] Serum or plasma calcium griffin urement (mass/volume)Ordered By: Rickie Hale on 04-09-2023 Calcium [Mass/Vol] 10.0 mg/dL 8.5-10.1 [facility] Serum or plasma creatinine m easurement (mass/volume)Ordered By: Rickie Hale on 04-09-2023 Creatinine [Mass/Vol] 1.25 mg/dL 0.55-1.02 [facility] Comment on above: The validity of the calculated GFR & GFRAA in patients over 70 years has not been determined. Clinical correlation is essential. Serum or plasma urea nitroge n measurement (mass/volume)Ordered By: Rickie Hale on 04-09-2023 Urea nitrogen [Mass/Vol] 35 mg/dL 7-18 [facility] Thin prep Papanicolaou smear with manual screeningOrdered By: Rickie Hale on 04-09-2023 Thin prep Papanicolaou smear with manual screening 5 5-15 [facility] Absolute lymphocyte countOrd ered By: Rickie Hale on 04-08-2023 Lymphocytes Auto (Unsp spec) [#/Vol] 2.28 10*3/uL 0.83-4.51 [facility] Activated partial thrombopla stin time (aPTT) in platelet poor plasma by coagulation aOrdered By: Arlene Acevedo on 04-08-2023 aPTT Coag (PPP) [Time] 56.0 s 24.1-36.2 [facility] [facility] Automated lymphocyte count a s percentage of total leukocytesOrdered By: Rickie Hale on 04-08-2023 Lymphocytes/100 WBC Auto (Unsp spec) 16.9 % 19-41 [facility] Basophil percentageOrdered B y: Rickie Hale on 04-08-2023 Basophil percentage 2.3 mg/dL 2.5-4.9 [facility] Basophils/100 WBC (Bld) 0.4 % 0-1 [facility] Chloride [Moles/Vol] 104 mmol/L 98-107 [facility] Eosinophils/100 WBC (Bld) 0.1 % 0-5 [facility] Glucose [Mass/Vol] 119 mg/dL 74-106 [facility] Comment on above: Fasting Glucose resu lt from 100 to 125 mg/dL suggests IMPAIRED HOMEOSTASIS per A.D.A. criteria. Hemoglobin (Bld) [Mass/Vol] 9.8 g/dL 12.0-15.0 [facility] Monocytes/100 WBC (Bld) 11.7 % 0-10 [facility] Neutrophils (Bld) [#/Vol] 9.5 10*3/uL 2.0-7.7 [facility] Neutrophils/100 WBC (Bld) 70.1 % 47-70 [facility] Potassium [Moles/Vol] 3.5 mmol/L 3.5-5.1 [facility] Sodium [Moles/Vol] 137 mmol/L 136-145 [facility] WBC (Bld) [#/Vol] 13.5 10*3/uL 4.4-11.0 [facility] Blood manual differential co mment interpretation (narrative result)Ordered By: Rickie Hale on 04-08-2023 Manual differential comment Dami (Bld) [Interp] SCANNED [facility] Comment on above: MONOCYTOSIS PRESENT Determination of erythrocyte mean corpuscular volume (MCV)Ordered By: Rickie Hale on 04-08-2023 MCV (RBC) [Entitic vol] 88.4 fL 81-99 [facility] Erythrocyte distribution wid th ratioOrdered By: Rickie Hale on 04-08-2023 Erythrocyte distribution width (RBC) [Ratio] 15.0 % 11.6-14.6 [facility] Erythrocyte distribution wid th standard deviationOrdered By: Rickie Hale on 04-08-2023 Erythrocyte distribution width (RBC) [Entitic vol] 48.2 fL 35.1-43.9 [facility] Hematocrit Auto (Bld) [Volum e fraction]Ordered By: Rcikie Hale on 04-08-2023 Hematocrit (Bld) [Volume fraction] 30.4 % 37-47 [facility] Immature granulocytes/100 WB C Auto (Bld)Ordered By: Rickie Hale on 04-08-2023 Immature granulocytes/100 WBC (Bld) 0.800 % 0.0-0.9 [facility] Comment on above: IG% - Immature Granu locytes (promyelocytes, myelocytes and metamyelocytes) > 1% indicates that a LEFT SHIFT is Present. Laboratory - Chemistry and C hemistry - challengeOrdered By: Rickie Hale on 04-08-2023 CO2 [Moles/Vol] 26.0 mmol/L 21.0-32.0 [facility] Magnesium [Mass/Vol] 1.9 mg/dL 1.6-2.6 [facility] Urea nitrogen/Creatinine [Mass ratio] 33.1 mg/mg 10-20 [facility] Laboratory - Hematology and Cell countsOrdered By: Rickie Hale on 04-08-2023 MCH (RBC) [Entitic mass] 28.5 pg 27.0-32.0 [facility] MCHC (RBC) [Mass/Vol] 32.2 g/dL 32-36 [facility] Nucleated RBC/100 WBC (Bld) [Ratio] 0.1 % 0-5 [facility] Platelets (Bld) [#/Vol] 253 10*3/uL 150-450 [facility] No Panel InformationOrdered By: Rickie Hale on 04-08-2023 Estimated Creatinine Clearance Calc 57.87 ml/min [facility] Estimated GFR (MDRD) Amer 57 mL/min >60 [facility] Comment on above: GFR Calc Estimated GFR (MDRD) Non-Af Amer 47 mL/min >60 [facility] Comment on above: Non- GFR Calc Platelet mean volume Jaun-Ec ker (Bld) [Entitic vol]Ordered By: Rickie Hale on 04-08-2023 Platelet mean volume (Bld) [Entitic vol] 9.5 fL 6.2-12.0 [facility] RBC Auto (Bld) [#/Vol]Ordere d By: Rickie Hale on 04-08-2023 RBC (Bld) [#/Vol] 3.44 10*6/uL 4.2-5.4 [facility] Review by pathologistOrdered By: Rickie Hale on 04-08-2023 Pathologist review Dami (Unsp spec) [Interp] Yana arvizu [facility] Pathologist review Dami (Unsp spec) [Interp] Reviewed [facility] Comment on above: Previous reported re sult: Yana arvizu Edited by: RGOOD on 04/09/23:1429Neutrophilic leukocytosis.Normocytic anemia.Clinical correlation necessary.Shmuel White M.D. 04/09/23 AMENDED REPORT 04/09/23 1429 PATH REV previously reported as: Yana arvizu Serum or plasma calcium griffin urement (mass/volume)Ordered By: Rickie Hale on 04-08-2023 Calcium [Mass/Vol] 9.6 mg/dL 8.5-10.1 [facility] Serum or plasma creatinine m easurement (mass/volume)Ordered By: Rickie Hale on 04-08-2023 Creatinine [Mass/Vol] 1.21 mg/dL 0.55-1.02 [facility] Comment on above: The validity of the calculated GFR & GFRAA in patients over 70 years has not been determined. Clinical correlation is essential. Serum or plasma urea nitroge n measurement (mass/volume)Ordered By: Rickie Hale on 04-08-2023 Urea nitrogen [Mass/Vol] 40 mg/dL 7-18 [facility] Thin prep Papanicolaou smear with manual screeningOrdered By: Rickie Hale on 04-08-2023 Thin prep Papanicolaou smear with manual screening 7 5-15 [facility] Toxic leukocyte granulation detectionOrdered By: Thor Alfred on 04-07-2023 Toxic granules LM Ql (Bld) 1+ [facility] Absolute lymphocyte countOrd ered By: Arlene Acevedo on 04-06-2023 Lymphocytes Auto (Unsp spec) [#/Vol] 1.48 10*3/uL 0.83-4.51 [facility] Activated partial thrombopla stin time (aPTT) in platelet poor plasma by coagulation aOrdered By: Arlene Acevedo on 04-06-2023 aPTT Coag (PPP) [Time] 35.6 s 24.1-36.2 [facility] Automated lymphocyte count a s percentage of total leukocytesOrdered By: Arlene Acevedo on 04-06-2023 Lymphocytes/100 WBC Auto (Unsp spec) 9.9 % 19-41 [facility] Basophil percentageOrdered B y: Arlene Acevedo on 04-06-2023 Basophils/100 WBC (Bld) 0.3 % 0-1 [facility] Chloride [Moles/Vol] 100 mmol/L 98-107 [facility] Eosinophils/100 WBC (Bld) 0.0 % 0-5 [facility] Glucose [Mass/Vol] 136 mg/dL 74-106 [facility] Comment on above: Fasting Glucose resu lt greater than or equal to 126 mg/dL suggests DIABETES MELLITUS per A.D.A. criteria. Hemoglobin (Bld) [Mass/Vol] 11.8 g/dL 12.0-15.0 [facility] Monocytes/100 WBC (Bld) 10.8 % 0-10 [facility] Neutrophils (Bld) [#/Vol] 11.7 10*3/uL 2.0-7.7 [facility] Neutrophils/100 WBC (Bld) 78.5 % 47-70 [facility] Potassium [Moles/Vol] 3.5 mmol/L 3.5-5.1 [facility] Comment on above: Slight Hemolysis, Re sult may be falsely increased. Sodium [Moles/Vol] 134 mmol/L 136-145 [facility] WBC (Bld) [#/Vol] 14.9 10*3/uL 4.4-11.0 [facility] Blood manual differential co mment interpretation (narrative result)Ordered By: Arlene Acevedo on 04-06-2023 Manual differential comment Dami (Bld) [Interp] SCANNED [facility] Determination of erythrocyte mean corpuscular volume (MCV)Ordered By: Arlene Acevedo on 04-06-2023 MCV (RBC) [Entitic vol] 89.3 fL 81-99 [facility] Erythrocyte distribution wid th ratioOrdered By: Arlene Acevedo on 04-06-2023 Erythrocyte distribution width (RBC) [Ratio] 14.7 % 11.6-14.6 [facility] Erythrocyte distribution wid th standard deviationOrdered By: Nikia Curtis on 04-06-2023 Erythrocyte distribution width (RBC) [Entitic vol] 47.7 fL 35.1-43.9 [facility] Hematocrit Auto (Bld) [Volum e fraction]Ordered By: Arlene Acevedo on 04-06-2023 Hematocrit (Bld) [Volume fraction] 35.9 % 37-47 [facility] Immature granulocytes/100 WB C Auto (Bld)Ordered By: Arlene Acevedo on 04-06-2023 Immature granulocytes/100 WBC (Bld) 0.500 % 0.0-0.9 [facility] Comment on above: IG% - Immature Granu locytes (promyelocytes, myelocytes and metamyelocytes) > 1% indicates that a LEFT SHIFT is Present. International normalized rat io (INR) calculationOrdered By: Arlene Acevedo on 04-06-2023 INR Coag (PPP) [Relative time] 1.4 {INR} [facility] Laboratory - Chemistry and C hemistry - challengeOrdered By: [facility] on 04-06-2023 CO2 [Moles/Vol] 25.0 mmol/L 21.0-32.0 [facility] Natriuretic peptide B (Bld) [Mass/Vol] 580.7 pg/mL 0-100 [facility] Urea nitrogen/Creatinine [Mass ratio] 15.0 mg/mg 10-20 [facility] Laboratory - CoagulationOrde red By: [facility] on 04-06-2023 PT Coag (PPP) [Time] 16.9 s 11.7-14.9 [facility] Laboratory - Hematology and Cell countsOrdered By: [facility] on 04-06-2023 MCH (RBC) [Entitic mass] 29.4 pg 27.0-32.0 [facility] MCHC (RBC) [Mass/Vol] 32.9 g/dL 32-36 [facility] Nucleated RBC/100 WBC (Bld) [Ratio] 0 % 0-5 [facility] Platelets (Bld) [#/Vol] 209 10*3/uL 150-450 [facility] Laboratory - Microbiology an d Antimicrobial susceptibilityOrdered By: [facility] on 04-06-2023 Bacteria identified Cx Nom (Bld) No growth in 5 days. [facility] SARS-CoV-2 (COVID-19) RNA BOB+probe Ql (Unsp spec) [facility] No Panel InformationOrdered By: [facility] on 04-06-2023 D-Dimer Quantitative (PE/DVT) 7.15 FEU/ug/m 0.27-0.49 [facility] Comment on above: D-Dimer ELEVATED (>0 .49): Additional studies and clinicalassessments are indicated to conclude diagnosis of:Deep Vein Thrombosis (DVT) or Pulmonary Embolism (PE)CRITICAL VALUE VERIFIED. CALLED TO ELISSA MEADE04/06/23 1030 Kelsey Clarke.RESULTS READ BACK BY SAME . Estimated Creatinine Clearance Calc 42.11 ml/min [facility] Estimated GFR (MDRD) Amer 39 mL/min >60 [facility] Comment on above: GFR Calc Estimated GFR (MDRD) Non-Af Amer 32 mL/min >60 [facility] Comment on above: Non- GFR Calc Troponin I High Sensitivity 122 pg/mL 3.0-54.0 [facility] Comment on above: Critical Result(s) C alled at: 10:12:57 04/06/2023 by: Frances Villarreal. Results read back by same. Please Note: New Test Units and Gender Specific Reference Ranges. For more information see Policy Stat Procedure [place] High Sensitivity Troponin (TNIH) and attachments. Platelet mean volume Jaun-Ec ker (Bld) [Entitic vol]Ordered By: Arlene Acevedo on 04-06-2023 Platelet mean volume (Bld) [Entitic vol] 9.3 fL 6.2-12.0 [facility] RBC Auto (Bld) [#/Vol]Ordere d By: Arlene Acevedo on 04-06-2023 RBC (Bld) [#/Vol] 4.02 10*6/uL 4.2-5.4 [facility] Review by pathologistOrdered By: Arlene Acevedo on 04-06-2023 Pathologist review Dami (Unsp spec) [Interp] May nolberto [facility] Serum or plasma calcium griffin urement (mass/volume)Ordered By: Arlene Acevedo on 04-06-2023 Calcium [Mass/Vol] 10.7 mg/dL 8.5-10.1 [facility] Serum or plasma creatinine m easurement (mass/volume)Ordered By: Arlene Acevedo on 04-06-2023 Creatinine [Mass/Vol] 1.67 mg/dL 0.55-1.02 [facility] Comment on above: The validity of the calculated GFR & GFRAA in patients over 70 years has not been determined. Clinical correlation is essential. Serum or plasma urea nitroge n measurement (mass/volume)Ordered By: Arlene Acevedo on 04-06-2023 Urea nitrogen [Mass/Vol] 25 mg/dL 7-18 [facility] Thin prep Papanicolaou smear with manual screeningOrdered By: Arlene Acevedo on 01-21-2024 Thin prep Papanicolaou smear with manual screening 9 5-15 [facility] Absolute lymphocyte countOrd ered By: Mati Mccann on 04-03-2023 Lymphocytes Auto (Unsp spec) [#/Vol] 2.15 10*3/uL 0.83-4.51 [facility] Automated lymphocyte count a s percentage of total leukocytesOrdered By: Mati Mccann on 04-03-2023 Lymphocytes/100 WBC Auto (Unsp spec) 18.9 % 19-41 [facility] Basophil percentageOrdered B y: Mati Mccann on 04-03-2023 Basophils/100 WBC (Bld) 0.5 % 0-1 [facility] Chloride [Moles/Vol] 108 mmol/L 98-107 [facility] Eosinophils/100 WBC (Bld) 0.4 % 0-5 [facility] Glucose [Mass/Vol] 113 mg/dL 74-106 [facility] Comment on above: Fasting Glucose resu lt from 100 to 125 mg/dL suggests IMPAIRED HOMEOSTASIS per A.D.A. criteria. Hemoglobin (Bld) [Mass/Vol] 11.6 g/dL 12.0-15.0 [facility] Monocytes/100 WBC (Bld) 11.2 % 0-10 [facility] Neutrophils (Bld) [#/Vol] 7.8 10*3/uL 2.0-7.7 [facility] Neutrophils/100 WBC (Bld) 68.6 % 47-70 [facility] Potassium [Moles/Vol] 3.5 mmol/L 3.5-5.1 [facility] Sodium [Moles/Vol] 139 mmol/L 136-145 [facility] WBC (Bld) [#/Vol] 11.4 10*3/uL 4.4-11.0 [facility] Determination of erythrocyte mean corpuscular volume (MCV)Ordered By: Mati Mccann on 04-03-2023 MCV (RBC) [Entitic vol] 90.0 fL 81-99 [facility] Erythrocyte distribution wid th ratioOrdered By: Mati Mccann on 04-03-2023 Erythrocyte distribution width (RBC) [Ratio] 14.7 % 11.6-14.6 [facility] Erythrocyte distribution wid th standard deviationOrdered By: Mati Mccann on 04-03-2023 Erythrocyte distribution width (RBC) [Entitic vol] 47.5 fL 35.1-43.9 [facility] Hematocrit Auto (Bld) [Volum e fraction]Ordered By: Mati Mccann on 04-03-2023 Hematocrit (Bld) [Volume fraction] 37.0 % 37-47 [facility] Immature granulocytes/100 WB C Auto (Bld)Ordered By: Mati Mccann on 04-03-2023 Immature granulocytes/100 WBC (Bld) 0.400 % 0.0-0.9 [facility] Comment on above: IG% - Immature Granu locytes (promyelocytes, myelocytes and metamyelocytes) > 1% indicates that a LEFT SHIFT is Present. Laboratory - Chemistry and C hemistry - challengeOrdered By: Matiheather Mccann on 04-03-2023 CO2 [Moles/Vol] 26.0 mmol/L 21.0-32.0 [facility] Natriuretic peptide B (Bld) [Mass/Vol] 338.1 pg/mL 0-100 [facility] Urea nitrogen/Creatinine [Mass ratio] 19.2 mg/mg 10-20 [facility] Laboratory - Hematology and Cell countsOrdered By: Mati Mccann on 04-03-2023 MCH (RBC) [Entitic mass] 28.2 pg 27.0-32.0 [facility] MCHC (RBC) [Mass/Vol] 31.4 g/dL 32-36 [facility] Nucleated RBC/100 WBC (Bld) [Ratio] 0 % 0-5 [facility] Platelets (Bld) [#/Vol] 153 10*3/uL 150-450 [facility] No Panel InformationOrdered By: Mati Mccann on 04-03-2023 Estimated GFR (MDRD) Amer 52 mL/min >60 [facility] Comment on above: GFR Calc Estimated GFR (MDRD) Non-Af Amer 43 mL/min >60 [facility] Comment on above: Non- GFR Calc Platelet mean volume Jaun-Ec ker (Bld) [Entitic vol]Ordered By: Mati Mccann on 04-03-2023 Platelet mean volume (Bld) [Entitic vol] 9.5 fL 6.2-12.0 [facility] RBC Auto (Bld) [#/Vol]Ordere d By: Mati Mccann on 04-03-2023 RBC (Bld) [#/Vol] 4.11 10*6/uL 4.2-5.4 [facility] Serum or plasma calcium griffin urement (mass/volume)Ordered By: Mati Mccann on 04-03-2023 Calcium [Mass/Vol] 10.8 mg/dL 8.5-10.1 [facility] Serum or plasma creatinine m easurement (mass/volume)Ordered By: Mati Mccann on 04-03-2023 Creatinine [Mass/Vol] 1.30 mg/dL 0.55-1.02 [facility] Comment on above: The validity of the calculated GFR & GFRAA in patients over 70 years has not been determined. Clinical correlation is essential. Serum or plasma urea nitroge n measurement (mass/volume)Ordered By: Mati Mccann on 04-03-2023 Urea nitrogen [Mass/Vol] 25 mg/dL 10-01 [facility] Thin prep Papanicolaou smear with manual screeningOrdered By: Matiheather Mccann on 04-03-2023 Thin prep Papanicolaou smear with manual screening 07-29 [facility] ANES POSTPROC EVALon 023 ANES POSTPROC EVAL HNO ID: [id number] Author: Suzanne Gordon MD Service: ? Author Type: Anesthesiologist Type: Anesthesia Postprocedure Evaluation Filed: 02/28/2023 4:04 PM Note Text: POST ANESTHESIA EVALUATION NOTE : 1955 Procedure Summary Date: 02/28/23 Room / Location: [place] [address] / [facility] Anesthesia Start: 1408 Anesthesia Stop: 145 Procedure: KERATOPLASTY ENDOTHELIAL DESCEMET MEMBRANE (DMEK) (Right: Eye) Diagnosis: Corneal edema, secondary, right (Corneal edema, secondary, right [H18.231]) Surgeons: Kiran Gifford MD Responsible Provider: Suzanne Gordon MD Anesthesia Type: MAC ASA Status: 3 Anesthesia Type: No value filed. Last Vitals Vitals Value Taken Time BP 140/65 12/15/23 1555 Temp 36.1 ?C (97 ?F) 02/28/23 [...] with this procedure. Documented by Kenyon Calzada APRN.GLOVE CUTTER 02/28/2023 2:59 PM EST SIGNATURE: Suzanne Gordon MD PATIENT NAME: Anh Ewing DATE: February 28, 2023 TIME: 4:04 PM CSN: [id number] [facility] ANES PRE-OPon 02-28-2023 ANES PRE-OP HNO ID: [id number] Author: Brian Galan MD Service: ? Author Type: Anesthesiologist Type: Anesthesia Preprocedure Evaluation Filed: 02/28/2023 2:46 PM Note Text: ANESTHESIOLOGY DAY OF SURGERY NOTE : 1955 Procedure Information Anesthesia Start Date/Time: 02/28/231407 Procedure: KERATOPLASTY ENDOTHELIAL DESCEMET MEMBRANE (DMEK) (Right: Eye) Location: [place] [address] / [facility] Surgeons: Kiran Gifford MD Estimated body mass index is 46.1 kg/m? as calculated from the following: Height as of 10/05/18: 165.1 cm (5' 5"). Weight as of 10/05/18: 125.6 kg (277 [...] and consent discussed: yes. Patient / Responsible [employer] Party agrees to proceed: yes Patient / [...] February 28, 2023 TIME: 2:45 PM CSN: [id number] [facility] Fungus Spec Culton 3 Fungus identified Cx Nom (Unsp spec) CULTURE, FUNGAL: No Fungus isolated after 28 days [facility] Comment on above: Performed By: #### 5 80-1 ####[facility] [id number] [address] OF [place] OPERATIVE NOon 02-28-2023 OPERATIVE NO HNO ID: [id number] Author: Kiran Gifford MD Service: Ophthalmology Author Type: Physician Type: Operative Report Filed: 02/28/2023 3:02 PM Note Text: OPERATIVE/PROCEDURE REPORT OPHTHAMOLOGY LOG ID: [id number] SURGERY/PROCEDURE DATE: 02/28/2023 INCISION/PROCEDURE START TIME: 2:25 PM INCISION CLOSE/PROCEDURE END TIME: 2:51 PM SURGEON(S)/PROCEDURAL IST(S) AND CORPORATE TECHNICAL RECRUITER(S): Surgeon(s) and Role: * Kiran Gifford MD [...] surface was then swept, now in a [id number] fashion to evacuate any interface fluid from [...] Implant Name Type Inv. Item Serial No. Diversional Therapist Lot No. LRB No. Used Action Model No. CORNEA TISSUE PRE-LOADED DMEK - [id number] Cornea CORNEA TISSUE PRE-LOADED DMEK [id number] [employer] [facility] Right 1 Implanted CORNEA TISSUE FEE GAS ISPAN CONSTELLATION INTRAOCULAR VISION SYSTEM SF6 125GM - [id number] Implant GAS ISPAN CONSTELLATION INTRAOCULAR VISION SYSTEM SF6 125GM [facility] [id number] Right 1 Implanted [id number] Ocular Co-Morbidities: No Intra-operative Complications None I/primary surgeon/proceduralist performed the entire procedure. SIGNATURE: Kiran Gifford MD PATIENT NAME: Anh Ewing DATE: February 28, 2023 TIME: 3:01 PM PAGER/CONTACT #: [phone] [facility] SURGICAL PATHOLOGYon 023 CASE REPORT Normal [facility] Comment on above: Order Comment: Speci men Type: TISSUE SPECIMENOrdering Facility: [facility] Address: [address] [place] [address] Result Comment: Surg ica Pathology Report Case: [id number] Authorizing Provider: Kiran Gifford MD Collected: 02/28/2023 02:42 PM Ordering Location: Ophthalmology Received: 02/28/2023 10:40 PM Pathologist: Miranda Roach MD Specimen: CORNEA RIGHT Performed By: #### S ####[facility] [id number] [place] [address] [place] CLINICAL HISTORY corneal swelling - herpetic? surgical trauma? Normal [facility] Comment on above: Order Comment: Speci men Type: TISSUE SPECIMENOrdering Facility: [facility] Address: [address] [place] [address] Performed By: #### S ####[facility] LABIA [id number] [place] [address] [place] DIAGNOSIS COMMENT PAS highlights Descemet membrane. Normal [facility] Comment on above: Order Comment: Speci men Type: TISSUE SPECIMENOrdering Facility: [facility] Address: [address] [place] [address] Performed By: #### S ####[facility]IA [id number] [address] STATES OF 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 Performed By: #### S ####[facility]IA [id number] [address] OF [facility] FINAL PERFORMING LAB Normal [facility] Comment on above: Order Comment: Speci men Type: TISSUE SPECIMENOrdering Facility: [facility] Address: [address] [place] [address] Result Comment: Diag nostic interpretation performed at [facility], [address] [place] [address] CLIA# [id number] Machine Sole Leveler: Royal Paz M.D. Performed By: #### S ####[facility] LABIA [id number] [address] STATES OF [facility] GROSS DESCRIPTION A. CORNEA RIGHT Normal [facility] Comment on above: Order Comment: Speci men Type: TISSUE SPECIMENOrdering Facility: [facility] Address: [address] [place] [address] Result Comment: Rece ived in formalin designated "cornea right" is an irregular transparent segment of tissue which measures 0.7 x 0.4 by less than 0.1 cm. The specimen is not sectioned and is totally submitted in 1 cassette. BF March 03, 2023 9:10 AM Gross examination performed at [facility], [address] [place] [address] Performed By: #### S ####[facility]IA [id number] [address] STATES OF [facility] Absolute lymphocyte countOrd ered By: Moni Velásquez on 02-17-2023 Lymphocytes Auto (Unsp spec) [#/Vol] 2.48 10*3/uL 0.83-4.51 [facility] Basophil percentageOrdered B y: Moni Velásquez on 02-17-2023 Basophils/100 WBC (Bld) 0.8 % 0-1 [facility] Bilirubin [Mass/Vol] 0.60 mg/dL 0.20-1.00 [facility] Comment on above: For patients on eltr ombopag therapy, use of Dimension [place] TBIL is not recommended. Chloride [Moles/Vol] 108 mmol/L 98-107 [facility] Cholesterol [Mass/Vol] 206 mg/dL <200 [facility] Comment on above: <200 mg/dL Desirable 200-240 mg/dL Borderline >240 mg/dL High Risk Eosinophils/100 WBC (Bld) 0.9 % 0-5 [facility] Glucose [Mass/Vol] 101 mg/dL 74-106 [facility] [place] Comment on above: Fasting Glucose resu lt from 100 to 125 mg/dL suggests IMPAIRED HOMEOSTASIS per A.D.A. criteria. Neutrophils (Bld) [#/Vol] 5.1 10*3/uL 2.0-7.7 [facility] Neutrophils/100 WBC (Bld) 57.6 % 47-70 [facility] Potassium [Moles/Vol] 4.1 mmol/L 3.5-5.1 [facility] Protein [Mass/Vol] 7.4 g/dL 6.4-8.2 [facility] Sodium [Moles/Vol] 141 mmol/L 136-145 [facility] Triglyceride [Mass/Vol] 199 mg/dL <199 [facility] Comment on above: The drugs N-Acetylcy steine and Metamizole may falsely depress this assay.Serum Triglycerides Reference Interval Normal <150 mg/dL Borderline high 150 - 199 mg/dL High 200 - 499 mg/dL Very High > or = 500 mg/dL WBC (Bld) [#/Vol] 8.8 10*3/uL 4.4-11.0 [facility] Blood erythrocytes count (nu mber/volume)Ordered By: Moni Velásquez on 02-17-2023 RBC (Bld) [#/Vol] 4.33 10*6/uL 4.2-5.4 [facility] Blood hemoglobin measurement (mass/volume)Ordered By: Moni Velásquez on 02-17-2023 Hemoglobin (Bld) [Mass/Vol] 12.7 g/dL 12.0-15.0 [facility] Blood lymphocytes/100 leukoc ytesOrdered By: Moni Velásquez on 02-17-2023 Lymphocytes/100 WBC (Bld) 28.1 % 19-41 [facility] Blood monocytes/100 leukocyt esOrdered By: Moni Velásquez on 02-17-2023 Monocytes/100 WBC (Bld) 12.1 % 0-10 [facility] Blood platelet mean volumeOr dered By: Moni Velásquez on 02-17-2023 Platelet mean volume (Bld) [Entitic vol] 9.6 fL 6.2-12.0 [facility] Determination of erythrocyte mean corpuscular volume (MCV)Ordered By: Moni Velásquez on 02-17-2023 MCV (RBC) [Entitic vol] 94.0 fL 81-99 [facility] Hematocrit Auto (Bld) [Volum e fraction]Ordered By: Moni Velásquez on 02-17-2023 Hematocrit (Bld) [Volume fraction] 40.7 % 37-47 [facility] Laboratory - Chemistry and C hemistry - challengeOrdered By: Moni Velásquez on 02-17-2023 ALP [Catalytic activity/Vol] 79 U/L 45-117 [facility] ALT [Catalytic activity/Vol] 23 U/L 13-56 [facility] CO2 [Moles/Vol] 26.0 mmol/L 21.0-32.0 [facility] Globulin (S) [Mass/Vol] 4.1 g/dL 2.2-4.2 [facility] Urea nitrogen/Creatinine [Mass ratio] 21.7 mg/mg 10-20 [facility] Laboratory - Hematology and Cell countsOrdered By: Moni Velásquez on 02-17-2023 Erythrocyte distribution width (RBC) [Entitic vol] 50.0 fL 35.1-43.9 [facility] Erythrocyte distribution width (RBC) [Ratio] 14.5 % 11.6-14.6 [facility] Immature granulocytes/100 WBC (Bld) 0.500 % 0.0-0.9 [facility] Comment on above: IG% - Immature Granu locytes (promyelocytes, myelocytes and metamyelocytes) > 1% indicates that a LEFT SHIFT is Present. MCH (RBC) [Entitic mass] 29.3 pg 27.0-32.0 [facility] Nucleated RBC/100 WBC (Bld) [Ratio] 0 % 0-5 [facility] MCHC Auto (RBC) [Mass/Vol]Or dered By: Moni Velásquez on 02-17-2023 MCHC (RBC) [Mass/Vol] 31.2 g/dL 32-36 [facility] No Panel InformationOrdered By: Moni Velásquez on 02-17-2023 Estimated GFR (MDRD) Amer 57 mL/min >60 [facility] Comment on above: GFR Calc Estimated GFR (MDRD) Non-Af Amer 48 mL/min >60 [facility] Comment on above: Non- GFR Calc Platelets bldOrdered By: Eduin Velásquez on 02-17-2023 Platelets (Bld) [#/Vol] 246 10*3/uL 150-450 [facility] Serum or plasma albumin griffin urement (mass/volume)Ordered By: Moni Velásquez on 02-17-2023 Albumin [Mass/Vol] 3.3 g/dL 3.2-5.0 [facility] Serum or plasma albumin/glob ulin mass ratioOrdered By: Moni Velásquez on 02-17-2023 Albumin/Globulin [Mass ratio] 0.8 {ratio} 0.9-2.4 [facility] Serum or plasma calcium griffin urement (mass/volume)Ordered By: Moni Velásquez on 02-17-2023 Calcium [Mass/Vol] 9.8 mg/dL 8.5-10.1 [facility] Serum or plasma cholesterol in HDL measurement (mass/volume)Ordered By: Moni Velásquez on 02-17-2023 Cholesterol in HDL [Mass/Vol] 51 mg/dL >40 [facility] Comment on above: The drugs N-Acetylcy steine and Metamizole may falsely depress this assay. Reference Range HDL <40 mg/dL Low HDL Cholesterol HDL >or= 60 mg/dL High HDL Cholesterol Serum or plasma cholesterol in VLDL measurement (mass/volume)Ordered By: Moni Velásquez on 02-17-2023 Cholesterol in VLDL [Mass/Vol] 40 mg/dL 5-40 [facility] Serum or plasma creatinine m easurement (mass/volume)Ordered By: Moni Velásquez on 02-17-2023 Creatinine [Mass/Vol] 1.20 mg/dL 0.55-1.02 [facility] Comment on above: The validity of the calculated GFR & GFRAA in patients over 70 years has not been determined. Clinical correlation is essential. Serum or plasma low density lipoprotein (LDL) cholesterol measurement (mass/volume)Ordered By: Moni Velásquez on 02-17-2023 Cholesterol in LDL [Mass/Vol] 115 mg/dL 0-130 [facility] Serum or plasma urea nitroge n measurement (mass/volume)Ordered By: Moni Velásquez on 02-17-2023 Urea nitrogen [Mass/Vol] 26 mg/dL 7-18 [facility] Thin prep Papanicolaou smear with manual screeningOrdered By: Moni Velásquez on 02-17-2023 Thin prep Papanicolaou smear with manual screening 29 U/L 15-37 [facility] Thin prep Papanicolaou smear with manual screening 7 5-15 [facility] CNPNon 01-16-2023 CNPN Telephone (FAMPWS) ANH EWING ([id number]) 1955 F [facility] Date Time Provider Department 01/16/23 KIRAN GIFFORD FAMPWS During your visit today, we recorded the following information about you: Goldie Low 01/16/2023 10:27 AM Signed Patient verified by name and . She has some questions and is asking for a phone call back at [phone]. Review and advise. Luciana Valencia OA 01/16/2023 3:56 PM Signed Spoke with the patient she stated that she is currently taking hydralazine and hydrochlorothiazide which she is under the care of [facility] to control her hypertension. Patient states she started these medications shortly before she started to experience the eye pain in the right eye. Patient spoke with the [facility] and they advised that she [...] Fully Assessed Reason for Visit: Patient Question [[id number]] Prescriptions as of 01/20/2023 - ganciclovir (ZIRGAN) [...] 04/07/2018 Encounter Status:Closed by HELADIOCHERISE on 01/20/23 [facility] 12-27-2022 CNPN Telephone (OPHWOO) ANH EWING ([id number]) 1955 F T Date Time Provider Department [...] mouth daily at bedtime. - sodium chloride (RODRIUGE 128) 5 % ophthalmic ointment Use 1 [...] Status:Closed by ABBI COLE on 12/27/22 Normal [facility] Absolute lymphocyte countOrd ered By: Andreina Cruz on 11-26-2022 Lymphocytes Auto (Unsp spec) [#/Vol] 2.19 10*3/uL 0.83-4.51 [facility] Basophil percentageOrdered B y: Andreina Cruz on 11-26-2022 Basophils/100 WBC (Bld) 1.4 % 0-1 [facility] Bilirubin [Mass/Vol] 0.50 mg/dL 0.20-1.00 [facility] Comment on above: For patients on eltr ombopag therapy, use of Dimension [place] TBIL is not recommended. Chloride [Moles/Vol] 110 mmol/L 98-107 [facility] Eosinophils/100 WBC (Bld) 1.8 % 0-5 [facility] Glucose [Mass/Vol] 109 mg/dL 74-106 [facility] Comment on above: Fasting Glucose resu lt from 100 to 125 mg/dL suggests IMPAIRED HOMEOSTASIS per A.D.A. criteria. Neutrophils (Bld) [#/Vol] 2.6 10*3/uL 2.0-7.7 [facility] Neutrophils/100 WBC (Bld) 45.7 % 47-70 [facility] Potassium [Moles/Vol] 3.8 mmol/L 3.5-5.1 [facility] Protein [Mass/Vol] 7.1 g/dL 6.4-8.2 [facility] Sodium [Moles/Vol] 141 mmol/L 136-145 [facility] WBC (Bld) [#/Vol] 5.6 10*3/uL 4.4-11.0 [facility] Blood erythrocytes count (nu mber/volume)Ordered By: Andreina Cruz on 11-26-2022 RBC (Bld) [#/Vol] 4.47 10*6/uL 4.2-5.4 [facility] Blood hemoglobin measurement (mass/volume)Ordered By: Andreina Cruz on 11-26-2022 Hemoglobin (Bld) [Mass/Vol] 12.9 g/dL 12.0-15.0 [facility] Blood lymphocytes/100 leukoc ytesOrdered By: Andreina Cruz on 11-26-2022 Lymphocytes/100 WBC (Bld) 39.0 % 19-41 [facility] Blood monocytes/100 leukocyt esOrdered By: Andreina Cruz on 11-26-2022 Monocytes/100 WBC (Bld) 11.9 % 0-10 [facility] Blood platelet mean volumeOr dered By: Andreina Cruz on 11-26-2022 Platelet mean volume (Bld) [Entitic vol] 9.8 fL 6.2-12.0 [facility] Determination of erythrocyte mean corpuscular volume (MCV)Ordered By: Andreina Cruz on 11-26-2022 MCV (RBC) [Entitic vol] 94.0 fL 81-99 [facility] Hematocrit Auto (Bld) [Volum e fraction]Ordered By: Andreina Cruz on 11-26-2022 Hematocrit (Bld) [Volume fraction] 42.0 % 37-47 [facility] Laboratory - Chemistry and C hemistry - challengeOrdered By: Andreina Cruz on 11-26-2022 ALP [Catalytic activity/Vol] 89 U/L 45-117 [facility] ALT [Catalytic activity/Vol] 20 U/L 13-56 [facility] CO2 [Moles/Vol] 26.0 mmol/L 21.0-32.0 [facility] Globulin (S) [Mass/Vol] 3.9 g/dL 2.2-4.2 [facility] Urea nitrogen/Creatinine [Mass ratio] 18.0 mg/mg 10-20 [facility] Laboratory - Hematology and Cell countsOrdered By: Andreina Cruz on 11-26-2022 Erythrocyte distribution width (RBC) [Entitic vol] 49.1 fL 35.1-43.9 [facility] Erythrocyte distribution width (RBC) [Ratio] 14.5 % 11.6-14.6 [facility] Immature granulocytes/100 WBC (Bld) 0.200 % 0.0-0.9 [facility] Comment on above: IG% - Immature Granu locytes (promyelocytes, myelocytes and metamyelocytes) > 1% indicates that a LEFT SHIFT is Present. MCH (RBC) [Entitic mass] 28.9 pg 27.0-32.0 [facility] Nucleated RBC/100 WBC (Bld) [Ratio] 0 % 0-5 [facility] MCHC Auto (RBC) [Mass/Vol]Or dered By: Andreina Cruz on 11-26-2022 MCHC (RBC) [Mass/Vol] 30.7 g/dL 32-36 [facility] No Panel InformationOrdered By: Andreina Cruz on 11-26-2022 Estimated GFR (MDRD) Amer 63 mL/min >60 [facility] Comment on above: GFR Calc Estimated GFR (MDRD) Non-Af Amer 52 mL/min >60 [facility] Comment on above: Non- GFR Calc Platelets bldOrdered By: Denise Cruz on 11-26-2022 Platelets (Bld) [#/Vol] 216 10*3/uL 150-450 [facility] Serum or plasma albumin griffin urement (mass/volume)Ordered By: Andreina Cruz on 11-26-2022 Albumin [Mass/Vol] 3.2 g/dL 3.2-5.0 [facility] Serum or plasma albumin/glob ulin mass ratioOrdered By: Andreian Cruz on 11-26-2022 Albumin/Globulin [Mass ratio] 0.8 {ratio} 0.9-2.4 [facility] Serum or plasma calcium griffin urement (mass/volume)Ordered By: Andreina Cruz on 11-26-2022 Calcium [Mass/Vol] 9.9 mg/dL 8.5-10.1 [facility] Serum or plasma creatinine m easurement (mass/volume)Ordered By: Andreina Cruz on 11-26-2022 Creatinine [Mass/Vol] 1.11 mg/dL 0.55-1.02 [facility] Comment on above: The validity of the calculated GFR & GFRAA in patients over 70 years has not been determined. Clinical correlation is essential. Serum or plasma urea nitroge n measurement (mass/volume)Ordered By: Andreina Cruz on 11-26-2022 Urea nitrogen [Mass/Vol] 20 mg/dL 7-18 [facility] Thin prep Papanicolaou smear with manual screeningOrdered By: Andreinaalla Cruz on 11-26-2022 Thin prep Papanicolaou smear with manual screening 22 U/L 15-37 [facility] Thin prep Papanicolaou smear with manual screening 5 5-15 [facility] CNPNon 11-22-2022 CNPN Telephone (OPHWOO) ANH EWING ([id number]) 1955 F C[facility] Date Time Provider Department 11/22/22 KIRAN GIFFORD During your visit today, we recorded the following information about you: Luciana Valencia OA 11/22/2022 3:51 PM Signed Spoke with Randee brar at the [facility] regarding this patient's referral to [...] Status:Closed by LUCIANA VALENCIA on 11/22/22 Normal [facility] Absolute lymphocyte countOrd ered By: Dr. Cruz on 08-29-2022 Lymphocytes Auto (Unsp spec) [#/Vol] 2.86 10*3/uL 0.83-4.51 [facility] Basophil percentageOrdered B y: Dr. Cruz on 08-29-2022 Basophils/100 WBC (Bld) 1.1 % 0-1 [facility] Bilirubin [Mass/Vol] 0.50 mg/dL 0.20-1.00 [facility] Comment on above: For patients on eltr ombopag therapy, use of Dimension [place] TBIL is not recommended. Chloride [Moles/Vol] 110 mmol/L 98-107 [facility] Eosinophils/100 WBC (Bld) 3.7 % 0-5 [facility] Glucose [Mass/Vol] 108 mg/dL 74-106 [facility] [place] Comment on above: Fasting Glucose resu lt from 100 to 125 mg/dL suggests IMPAIRED HOMEOSTASIS per A.D.A. criteria. Neutrophils (Bld) [#/Vol] 2.2 10*3/uL 2.0-7.7 [facility] Neutrophils/100 WBC (Bld) 35.5 % 47-70 [facility] Potassium [Moles/Vol] 3.8 mmol/L 3.5-5.1 [facility] Protein [Mass/Vol] 7.3 g/dL 6.4-8.2 [facility] Sodium [Moles/Vol] 140 mmol/L 136-145 [facility] WBC (Bld) [#/Vol] 6.3 10*3/uL 4.4-11.0 [facility] Blood erythrocytes count (nu mber/volume)Ordered By: Dr. Cruz on 08-29-2022 RBC (Bld) [#/Vol] 4.45 10*6/uL 4.2-5.4 [facility] Blood hemoglobin measurement (mass/volume)Ordered By: Dr. Cruz on 08-29-2022 Hemoglobin (Bld) [Mass/Vol] 13.2 g/dL 12.0-15.0 [facility] Blood lymphocytes/100 leukoc ytesOrdered By: Dr. Cruz on 08-29-2022 Lymphocytes/100 WBC (Bld) 45.4 % 19-41 [facility] Blood monocytes/100 leukocyt esOrdered By: Dr. Cruz on 08-29-2022 Monocytes/100 WBC (Bld) 14.0 % 0-10 [facility] Blood platelet mean volumeOr dered By: Dr. Cruz on 08-29-2022 Platelet mean volume (Bld) [Entitic vol] 10.1 fL 6.2-12.0 [facility] Determination of erythrocyte mean corpuscular volume (MCV)Ordered By: Dr. Cruz on 08-29-2022 MCV (RBC) [Entitic vol] 92.1 fL 81-99 [facility] Hematocrit Auto (Bld) [Volum e fraction]Ordered By: Dr. Cruz on 08-29-2022 Hematocrit (Bld) [Volume fraction] 41.0 % 37-47 [facility] Laboratory - Chemistry and C hemistry - challengeOrdered By: Dr. Cruz on 08-29-2022 ALP [Catalytic activity/Vol] 107 U/L 45-117 [facility] ALT [Catalytic activity/Vol] 20 U/L 13-56 [facility] CO2 [Moles/Vol] 22.0 mmol/L 21.0-32.0 [facility] Globulin (S) [Mass/Vol] 4.2 g/dL 2.2-4.2 [facility] Urea nitrogen/Creatinine [Mass ratio] 18.5 mg/mg 10-20 [facility] Laboratory - Hematology and Cell countsOrdered By: Dr. Curz on 08-29-2022 Erythrocyte distribution width (RBC) [Entitic vol] 50.9 fL 35.1-43.9 [facility] Erythrocyte distribution width (RBC) [Ratio] 15.1 % 11.6-14.6 [facility] Immature granulocytes/100 WBC (Bld) 0.300 % 0.0-0.9 [facility] Comment on above: IG% - Immature Granu locytes (promyelocytes, myelocytes and metamyelocytes) > 1% indicates that a LEFT SHIFT is Present. MCH (RBC) [Entitic mass] 29.7 pg 27.0-32.0 [facility] Nucleated RBC/100 WBC (Bld) [Ratio] 0 % 0-5 [facility] Auto (RBC) [Mass/Vol]Or dered By: Dr. Cruz on 08-29-2022 MCHC (RBC) [Mass/Vol] 32.2 g/dL 32-36 [facility] No Panel InformationOrdered By: Dr. Cruz on 08-29-2022 Estimated GFR (MDRD) Amer 65 mL/min >60 [facility] Comment on above: GFR Calc Estimated GFR (MDRD) Non-Af Amer 54 mL/min >60 [facility] Comment on above: Non- GFR Calc Platelets bldOrdered By: Dr. Cruz on 08-29-2022 Platelets (Bld) [#/Vol] 225 10*3/uL 150-450 [facility] Serum or plasma albumin griffin urement (mass/volume)Ordered By: Dr. Crzu on 08-29-2022 Albumin [Mass/Vol] 3.1 g/dL 3.2-5.0 [facility] Serum or plasma albumin/glob ulin mass ratioOrdered By: Dr. Cruz on 08-29-2022 Albumin/Globulin [Mass ratio] 0.7 {ratio} 0.9-2.4 [facility] Serum or plasma calcium griffin urement (mass/volume)Ordered By: Dr. Cruz on 08-29-2022 Calcium [Mass/Vol] 9.7 mg/dL 8.5-10.1 [facility] Serum or plasma creatinine m easurement (mass/volume)Ordered By: Dr. Cruz on 08-29-2022 Creatinine [Mass/Vol] 1.08 mg/dL 0.55-1.02 [facility] Comment on above: The validity of the calculated GFR & GFRAA in patients over 70 years has not been determined. Clinical correlation is essential. Serum or plasma urea nitroge n measurement (mass/volume)Ordered By: Dr. Cruz on 08-29-2022 Urea nitrogen [Mass/Vol] 20 mg/dL 7-18 [facility] Thin prep Papanicolaou smear with manual screeningOrdered By: Dr. Cruz on 08-29-2022 Thin prep Papanicolaou smear with manual screening 22 U/L 15- [facility] Thin prep Papanicolaou smear with manual screening 8 5-15 [facility] Basophil percentageOrdered B y: Richard Garcia on 08-07-2022 Bilirubin [Mass/Vol] 0.80 mg/dL 0.20-1.00 [facility] Comment on above: For patients on eltr ombopag therapy, use of Dimension [place] TBIL is not recommended. Chloride [Moles/Vol] 107 mmol/L 98-107 [facility] Cholesterol [Mass/Vol] 157 mg/dL <200 [facility] Comment on above: <200 mg/dL Desirable 200-240 mg/dL Borderline >240 mg/dL High Risk Glucose [Mass/Vol] 115 mg/dL 74-106 [facility] Comment on above: Fasting Glucose resu lt from 100 to 125 mg/dL suggests IMPAIRED HOMEOSTASIS per A.D.A. criteria. Potassium [Moles/Vol] 4.0 mmol/L 3.5-5.1 [facility] Comment on above: Moderate Hemolysis, Result may be falsely increased. Protein [Mass/Vol] 7.5 g/dL 6.4-8.2 [facility] Sodium [Moles/Vol] 141 mmol/L 136-145 [facility] Triglyceride [Mass/Vol] 263 mg/dL <199 [facility] Comment on above: The drugs N-Acetylcy steine and Metamizole may falsely depress this assay.Serum Triglycerides Reference Interval Normal <150 mg/dL Borderline high 150 - 199 mg/dL High 200 - 499 mg/dL Very High > or = 500 mg/dL Direct bilirubinOrdered By: Richard Garcia on 08-07-2022 Bilirubin.direct [Mass/Vol] 0.16 mg/dL 0.00-0.30 [facility] Laboratory - Chemistry and C hemistry - challengeOrdered By: Richard Garcia on 08-07-2022 ALP [Catalytic activity/Vol] 133 U/L 45-117 [facility] ALT [Catalytic activity/Vol] 34 U/L 13-56 [facility] CO2 [Moles/Vol] 26.0 mmol/L 21.0-32.0 [facility] Globulin (S) [Mass/Vol] 4.2 g/dL 2.2-4.2 [facility] Urea nitrogen/Creatinine [Mass ratio] 18.6 mg/mg 10-20 [facility] No Panel InformationOrdered By: Richard Garcia on 08-07-2022 Estimated GFR (MDRD) Amer 59 mL/min >60 [facility] Comment on above: GFR Calc Estimated GFR (MDRD) Non-Af Amer 49 mL/min >60 [facility] Comment on above: Non- GFR Calc Serum or plasma albumin griffin urement (mass/volume)Ordered By: Richard Garcia on 08-07-2022 Albumin [Mass/Vol] 3.3 g/dL 3.2-5.0 [facility] Serum or plasma calcium griffin urement (mass/volume)Ordered By: Richard Garcia on 08-07-2022 Calcium [Mass/Vol] 9.9 mg/dL 8.5-10.1 [facility] Serum or plasma cholesterol in HDL measurement (mass/volume)Ordered By: Richard Garcia on 08-07-2022 Cholesterol in HDL [Mass/Vol] 44 mg/dL >40 [facility] Comment on above: The drugs N-Acetylcy steine and Metamizole may falsely depress this assay. Reference Range HDL <40 mg/dL Low HDL Cholesterol HDL >or= 60 mg/dL High HDL Cholesterol Serum or plasma cholesterol in VLDL measurement (mass/volume)Ordered By: Richard Garcia on 08-07-2022 Cholesterol in VLDL [Mass/Vol] 53 mg/dL 5-40 [facility] Serum or plasma creatinine m easurement (mass/volume)Ordered By: Richard Garcia on 08-07-2022 Creatinine [Mass/Vol] 1.18 mg/dL 0.55-1.02 [facility] Comment on above: The validity of the calculated GFR & GFRAA in patients over 70 years has not been determined. Clinical correlation is essential. Serum or plasma low density lipoprotein (LDL) cholesterol measurement (mass/volume)Ordered By: Richard Garcia on 08-07-2022 Cholesterol in LDL [Mass/Vol] 60 mg/dL 0-130 [facility] Serum or plasma urea nitroge n measurement (mass/volume)Ordered By: Richard Garcia on 08-07-2022 Urea nitrogen [Mass/Vol] 22 mg/dL 7-18 [facility] Thin prep Papanicolaou smear with manual screeningOrdered By: Richard Garcia on 08-07-2022 Thin prep Papanicolaou smear with manual screening 42 U/L 15-37 [facility] Comment on above: Moderate Hemolysis, Result may be falsely increased. Thin prep Papanicolaou smear with manual screening 8 5-15 [facility] Absolute lymphocyte countOrd ered By: Dr. Cruz on 06-05-2022 Lymphocytes Auto (Unsp spec) [#/Vol] 2.33 10*3/uL 0.83-4.51 [facility] Basophil percentageOrdered B y: Dr. Cruz on 06-05-2022 Basophils/100 WBC (Bld) 1.0 % 0-1 [facility] Bilirubin [Mass/Vol] 0.60 mg/dL 0.20-1.00 [facility] Comment on above: For patients on eltr ombopag therapy, use of Dimension [place] TBIL is not recommended. Chloride [Moles/Vol] 107 mmol/L 98-107 [facility] Eosinophils/100 WBC (Bld) 1.7 % 0-5 [facility] Glucose [Mass/Vol] 117 mg/dL 74-106 [facility] Comment on above: Fasting Glucose resu lt from 100 to 125 mg/dL suggests IMPAIRED HOMEOSTASIS per A.D.A. criteria. Neutrophils (Bld) [#/Vol] 2.7 10*3/uL 2.0-7.7 [facility] Neutrophils/100 WBC (Bld) 44.6 % 47-70 [facility] Potassium [Moles/Vol] 3.7 mmol/L 3.5-5.1 [facility] Protein [Mass/Vol] 7.3 g/dL 6.4-8.2 [facility] Sodium [Moles/Vol] 143 mmol/L 136-145 [facility] WBC (Bld) [#/Vol] 6.0 10*3/uL 4.4-11.0 [facility] Blood erythrocytes count (nu mber/volume)Ordered By: Dr. Cruz on 06-05-2022 RBC (Bld) [#/Vol] 4.59 10*6/uL 4.2-5.4 [facility] Blood hemoglobin measurement (mass/volume)Ordered By: Dr. Cruz on 06-05-2022 Hemoglobin (Bld) [Mass/Vol] 13.5 g/dL 12.0-15.0 [facility] Blood lymphocytes/100 leukoc ytesOrdered By: Dr. Cruz on 06-05-2022 Lymphocytes/100 WBC (Bld) 38.6 % 19-41 [facility] Blood monocytes/100 leukocyt esOrdered By: Dr. Cruz on 06-05-2022 Monocytes/100 WBC (Bld) 13.9 % 0-10 [facility] Blood platelet mean volumeOr dered By: Dr. Cruz on 06-05-2022 Platelet mean volume (Bld) [Entitic vol] 10.3 fL 6.2-12.0 [facility] Determination of erythrocyte mean corpuscular volume (MCV)Ordered By: Dr. Cruz on 06-05-2022 MCV (RBC) [Entitic vol] 94.1 fL 81-99 [facility] Hematocrit Auto (Bld) [Volum e fraction]Ordered By: Dr. Cruz on 06-05-2022 Hematocrit (Bld) [Volume fraction] 43.2 % 37-47 [facility] Laboratory - Chemistry and C hemistry - challengeOrdered By: Dr. Cruz on 06-05-2022 ALP [Catalytic activity/Vol] 87 U/L 45-117 [facility] ALT [Catalytic activity/Vol] 25 U/L 13-56 [facility] CO2 [Moles/Vol] 28.0 mmol/L 21.0-32.0 [facility] Globulin (S) [Mass/Vol] 3.9 g/dL 2.2-4.2 [facility] Urea nitrogen/Creatinine [Mass ratio] 16.7 mg/mg 10-20 [facility] Laboratory - Hematology and Cell countsOrdered By: Dr. Cruz on 06-05-2022 Erythrocyte distribution width (RBC) [Entitic vol] 47.8 fL 35.1-43.9 [facility] Erythrocyte distribution width (RBC) [Ratio] 14.0 % 11.6-14.6 [facility] Immature granulocytes/100 WBC (Bld) 0.200 % 0.0-0.9 [facility] Comment on above: IG% - Immature Granu locytes (promyelocytes, myelocytes and metamyelocytes) > 1% indicates that a LEFT SHIFT is Present. MCH (RBC) [Entitic mass] 29.4 pg 27.0-32.0 [facility] Nucleated RBC/100 WBC (Bld) [Ratio] 0 % 0-5 [facility] MCHC Auto (RBC) [Mass/Vol]Or dered By: Dr. Cruz on 06-05-2022 MCHC (RBC) [Mass/Vol] 31.3 g/dL 32-36 [facility] No Panel InformationOrdered By: Dr. Cruz on 06-05-2022 Estimated GFR (MDRD) Amer 58 mL/min >60 [facility] Comment on above: GFR Calc Estimated GFR (MDRD) Non-Af Amer 48 mL/min >60 [facility] Comment on above: Non- GFR Calc Platelets bldOrdered By: Dr. Cruz on 06-05-2022 Platelets (Bld) [#/Vol] 231 10*3/uL 150-450 [facility] Serum or plasma albumin griffin urement (mass/volume)Ordered By: Dr. Cruz on 06-05-2022 Albumin [Mass/Vol] 3.4 g/dL 3.2-5.0 [facility] Serum or plasma albumin/glob ulin mass ratioOrdered By: Dr. Cruz on 06-05-2022 Albumin/Globulin [Mass ratio] 0.9 {ratio} 0.9-2.4 [facility] Serum or plasma calcium griffin urement (mass/volume)Ordered By: Dr. Cruz on 06-05-2022 Calcium [Mass/Vol] 9.6 mg/dL 8.5-10.1 [facility] Serum or plasma creatinine m easurement (mass/volume)Ordered By: Dr. Cruz on 06-05-2022 Creatinine [Mass/Vol] 1.20 mg/dL 0.55-1.02 [facility] Comment on above: The validity of the calculated GFR & GFRAA in patients over 70 years has not been determined. Clinical correlation is essential. Serum or plasma urea nitroge n measurement (mass/volume)Ordered By: Dr. Cruz on 06-05-2022 Urea nitrogen [Mass/Vol] 20 mg/dL 7-18 [facility] Thin prep Papanicolaou smear with manual screeningOrdered By: Dr. Cruz on 06-05-2022 Thin prep Papanicolaou smear with manual screening 24 U/L 15-37 [facility] Thin prep Papanicolaou smear with manual screening 8 5-15 [facility] Basophil percentageOrdered B y: Dr. Cruz on 06-03-2022 WBC (Bld) [#/Vol] 5.8 10*3/uL 4.4-11.0 [facility] Blood erythrocytes count (nu mber/volume)Ordered By: Dr. Cruz on 06-03-2022 RBC (Bld) [#/Vol] 4.66 10*6/uL 4.2-5.4 [facility] Blood hemoglobin measurement (mass/volume)Ordered By: Dr. Cruz on 06-03-2022 Hemoglobin (Bld) [Mass/Vol] 13.7 g/dL 12.0-15.0 [facility] Blood platelet mean volumeOr dered By: Dr. Cruz on 06-03-2022 Platelet mean volume (Bld) [Entitic vol] 10.0 fL 6.2-12.0 [facility] Determination of erythrocyte mean corpuscular volume (MCV)Ordered By: Dr. Cruz on 06-03-2022 MCV (RBC) [Entitic vol] 93.8 fL 81-99 [facility] Hematocrit Auto (Bld) [Volum e fraction]Ordered By: Dr. Cruz on 06-03-2022 Hematocrit (Bld) [Volume fraction] 43.7 % 37-47 [facility] Laboratory - Hematology and Cell countsOrdered By: Dr. Cruz on 06-03-2022 Erythrocyte distribution width (RBC) [Entitic vol] 48.6 fL 35.1-43.9 [facility] Erythrocyte distribution width (RBC) [Ratio] 14.2 % 11.6-14.6 [facility] MCH (RBC) [Entitic mass] 29.4 pg 27.0-32.0 [facility] MCHC Auto (RBC) [Mass/Vol]Or dered By: Dr. Cruz on 06-03-2022 MCHC (RBC) [Mass/Vol] 31.4 g/dL 32-36 [facility] Platelets bldOrdered By: Dr. Cruz on 06-03-2022 Platelets (Bld) [#/Vol] 218 10*3/uL 150-450 [facility] Basophil percentageOrdered B y: Dr. Cruz on 03-15-2022 Bilirubin [Mass/Vol] 0.50 mg/dL 0.20-1.00 [facility] Comment on above: For patients on eltr ombopag therapy, use of Dimension [place] TBIL is not recommended. Chloride [Moles/Vol] 107 mmol/L 98-107 [facility] Glucose [Mass/Vol] 95 mg/dL 74-106 [facility] Potassium [Moles/Vol] 4.1 mmol/L 3.5-5.1 [facility] Protein [Mass/Vol] 6.9 g/dL 6.4-8.2 [facility] Sodium [Moles/Vol] 141 mmol/L 136-145 [facility] Laboratory - Chemistry and C hemistry - challengeOrdered By: Dr. Cruz on 03-15-2022 ALP [Catalytic activity/Vol] 121 U/L 45-117 [facility] ALT [Catalytic activity/Vol] 25 U/L 13-56 [facility] CO2 [Moles/Vol] 27.0 mmol/L 21.0-32.0 [facility] Globulin (S) [Mass/Vol] 3.4 g/dL 2.2-4.2 [facility] Urea nitrogen/Creatinine [Mass ratio] 23.7 mg/mg 10-20 [facility] No Panel InformationOrdered By: Dr. Cruz on 03-15-2022 Estimated GFR (MDRD) Amer 74 mL/min >60 [facility] Comment on above: GFR Calc Estimated GFR (MDRD) Non-Af Amer 61 mL/min >60 [facility] Comment on above: Non- GFR Calc Serum or plasma albumin griffin urement (mass/volume)Ordered By: Dr. Cruz on 03-15-2022 Albumin [Mass/Vol] 3.5 g/dL 3.2-5.0 [facility] Serum or plasma albumin/glob ulin mass ratioOrdered By: Dr. Cruz on 03-15-2022 Albumin/Globulin [Mass ratio] 1.0 {ratio} 0.9-2.4 [facility] Serum or plasma calcium griffin urement (mass/volume)Ordered By: Dr. Cruz on 03-15-2022 Calcium [Mass/Vol] 9.8 mg/dL 8.5-10.1 [facility] Serum or plasma creatinine m easurement (mass/volume)Ordered By: Dr. Cruz on 03-15-2022 Creatinine [Mass/Vol] 0.97 mg/dL 0.55-1.02 [facility] Comment on above: The validity of the calculated GFR & GFRAA in patients over 70 years has not been determined. Clinical correlation is essential. Serum or plasma urea nitroge n measurement (mass/volume)Ordered By: Dr. Cruz on 03-15-2022 Urea nitrogen [Mass/Vol] 23 mg/dL 7-18 [facility] Thin prep Papanicolaou smear with manual screeningOrdered By: Dr. Cruz on 03-15-2022 Thin prep Papanicolaou smear with manual screening 24 U/L 15-37 [facility] Thin prep Papanicolaou smear with manual screening 7 5-15 [facility] Absolute lymphocyte countOrd ered By: Dr. Cruz on 03-12-2022 Lymphocytes Auto (Unsp spec) [#/Vol] 2.66 10*3/uL 0.83-4.51 [facility] Basophil percentageOrdered B y: Dr. Cruz on 03-12-2022 Basophils/100 WBC (Bld) 0.9 % 0-1 [facility] Bilirubin [Mass/Vol] 0.50 mg/dL 0.20-1.00 [facility] Comment on above: For patients on eltr ombopag therapy, use of Dimension [place] TBIL is not recommended. Chloride [Moles/Vol] 109 mmol/L 98-107 [facility] Eosinophils/100 WBC (Bld) 1.8 % 0-5 [facility] Glucose [Mass/Vol] 106 mg/dL 74-106 [facility] Comment on above: Fasting Glucose resu lt from 100 to 125 mg/dL suggests IMPAIRED HOMEOSTASIS per A.D.A. criteria. Neutrophils (Bld) [#/Vol] 3.0 10*3/uL 2.0-7.7 [facility] Neutrophils/100 WBC (Bld) 45.1 % 47-70 [facility] Potassium [Moles/Vol] 4.2 mmol/L 3.5-5.1 [facility] Protein [Mass/Vol] 6.7 g/dL 6.4-8.2 [facility] Sodium [Moles/Vol] 142 mmol/L 136-145 [facility] WBC (Bld) [#/Vol] 6.6 10*3/uL 4.4-11.0 [facility] Blood erythrocytes count (nu mber/volume)Ordered By: Dr. Cruz on 03-12-2022 RBC (Bld) [#/Vol] 4.35 10*6/uL 4.2-5.4 [facility] Blood hemoglobin measurement (mass/volume)Ordered By: Dr. Cruz on 03-12-2022 Hemoglobin (Bld) [Mass/Vol] 13.6 g/dL 12.0-15.0 [facility] Blood lymphocytes/100 leukoc ytesOrdered By: Dr. Cruz on 03-12-2022 Lymphocytes/100 WBC (Bld) 40.1 % 19-41 [facility] Blood monocytes/100 leukocyt esOrdered By: Dr. Cruz on 03-12-2022 Monocytes/100 WBC (Bld) 11.9 % 0-10 [facility] Blood platelet mean volumeOr dered By: Dr. Cruz on 03-12-2022 Platelet mean volume (Bld) [Entitic vol] 9.2 fL 6.2-12.0 [facility] Determination of erythrocyte mean corpuscular volume (MCV)Ordered By: Dr. Cruz on 03-12-2022 MCV (RBC) [Entitic vol] 93.8 fL 81-99 [facility] Hematocrit Auto (Bld) [Volum e fraction]Ordered By: Dr. Cruz on 03-12-2022 Hematocrit (Bld) [Volume fraction] 40.8 % 37-47 [facility] Laboratory - Chemistry and C hemistry - challengeOrdered By: Dr. Cruz on 03-12-2022 ALP [Catalytic activity/Vol] 102 U/L 45-117 [facility] ALT [Catalytic activity/Vol] 23 U/L 13-56 [facility] CO2 [Moles/Vol] 29.0 mmol/L 21.0-32.0 [facility] Globulin (S) [Mass/Vol] 3.4 g/dL 2.2-4.2 [facility] Urea nitrogen/Creatinine [Mass ratio] 20.4 mg/mg 10-20 [facility] Laboratory - Hematology and Cell countsOrdered By: Dr. Cruz on 03-12-2022 Erythrocyte distribution width (RBC) [Entitic vol] 48.7 fL 35.1-43.9 [facility] Erythrocyte distribution width (RBC) [Ratio] 14.1 % 11.6-14.6 [facility] Immature granulocytes/100 WBC (Bld) 0.200 % 0.0-0.9 [facility] Comment on above: IG% - Immature Granu locytes (promyelocytes, myelocytes and metamyelocytes) > 1% indicates that a LEFT SHIFT is Present. MCH (RBC) [Entitic mass] 31.3 pg 27.0-32.0 [facility] Nucleated RBC/100 WBC (Bld) [Ratio] 0 % 0-5 [facility] MCHC Auto (RBC) [Mass/Vol]Or dered By: Dr. Cruz on 03-12-2022 MCHC (RBC) [Mass/Vol] 33.3 g/dL 32-36 [facility] No Panel InformationOrdered By: Dr. Cruz on 03-12-2022 Estimated GFR (MDRD) Amer 69 mL/min >60 [facility] Comment on above: GFR Calc Estimated GFR (MDRD) Non-Af Amer 57 mL/min >60 [facility] Comment on above: Non- GFR Calc Platelets bldOrdered By: Dr. Cruz on 03-12-2022 Platelets (Bld) [#/Vol] 229 10*3/uL 150-450 [facility] Serum or plasma albumin griffin urement (mass/volume)Ordered By: Dr. Cruz on 03-12-2022 Albumin [Mass/Vol] 3.3 g/dL 3.2-5.0 [facility] Serum or plasma albumin/glob ulin mass ratioOrdered By: Dr. Cruz on 03-12-2022 Albumin/Globulin [Mass ratio] 1.0 {ratio} 0.9-2.4 [facility] Serum or plasma calcium griffin urement (mass/volume)Ordered By: Dr. Cruz on 03-12-2022 Calcium [Mass/Vol] 9.9 mg/dL 8.5-10.1 [facility] Serum or plasma creatinine m easurement (mass/volume)Ordered By: Dr. Cruz on 03-12-2022 Creatinine [Mass/Vol] 1.03 mg/dL 0.55-1.02 [facility] Comment on above: The validity of the calculated GFR & GFRAA in patients over 70 years has not been determined. Clinical correlation is essential. Serum or plasma urea nitroge n measurement (mass/volume)Ordered By: Dr. Cruz on 03-12-2022 Urea nitrogen [Mass/Vol] 21 mg/dL 7-18 [facility] Thin prep Papanicolaou smear with manual screeningOrdered By: Dr. Cruz on 03-12-2022 Thin prep Papanicolaou smear with manual screening 18 U/L 15-37 [facility] Thin prep Papanicolaou smear with manual screening 4 5-15 [facility] Absolute lymphocyte counton 2022 Lymphocytes Auto (Unsp spec) [#/Vol] 2.91 10*3/uL 0.83-4.51 [facility] Work Phone: Basophil percentageon 2021 Basophils/100 WBC (Bld) 0.9 % 0-1 [facility] Work Phone: Eosinophils/100 WBC (Bld) 1.1 % 0-5 [facility] Work Phone: Neutrophils (Bld) [#/Vol] 3.3 10*3/uL 2.0-7.7 [facility] Work Phone: Neutrophils/100 WBC (Bld) 47.0 % 47-70 [facility] Work Phone: WBC (Bld) [#/Vol] 7.0 10*3/uL 4.4-11.0 [facility] Work Phone: Bilirubin [Mass/Vol] 0.50 mg/dL 0.20-1.00 [facility] Work Phone: Comment on above: For patients on eltr ombopag therapy, use of Dimension [place] TBIL is not recommended. Chloride [Moles/Vol] 108 mmol/L 98-107 [facility] Work Phone: Cholesterol [Mass/Vol] 189 mg/dL <200 [facility] Work Phone: Comment on above: <200 mg/dL Desirable 200-240 mg/dL Borderline >240 mg/dL High Risk Glucose [Mass/Vol] 109 mg/dL 74-106 [facility] Work Phone: Comment on above: Fasting Glucose resu lt from 100 to 125 mg/dL suggests IMPAIRED HOMEOSTASIS per A.D.A. criteria. Potassium [Moles/Vol] 4.3 mmol/L 3.5-5.1 [facility] Work Phone: Protein [Mass/Vol] 7.5 g/dL 6.4-8.2 [facility] Work Phone: Sodium [Moles/Vol] 144 mmol/L 136-145 [facility] Work Phone: Triglyceride [Mass/Vol] 171 mg/dL <199 [facility] Work Phone: Comment on above: The drugs N-Acetylcy steine and Metamizole may falsely depress this assay.Serum Triglycerides Reference Interval Normal <150 mg/dL Borderline high 150 - 199 mg/dL High 200 - 499 mg/dL Very High > or = 500 mg/dL Blood erythrocytes count (nu mber/volume)on 2022 RBC (Bld) [#/Vol] 4.73 10*6/uL 4.2-5.4 [facility] Work Phone: Blood hemoglobin measurement (mass/volume)on 2022 Hemoglobin (Bld) [Mass/Vol] 14.2 g/dL 12.0-15.0 [facility] Work Phone: Blood lymphocytes/100 leukoc yteson 2022 Lymphocytes/100 WBC (Bld) 41.8 % 19-41 [facility] Work Phone: Blood monocytes/100 leukocyt eson 2022 Monocytes/100 WBC (Bld) 8.8 % 0-10 [facility] Work Phone: Blood platelet mean volumeon 2022 Platelet mean volume (Bld) [Entitic vol] 9.3 fL 6.2-12.0 [facility] Work Phone: Determination of erythrocyte mean corpuscular volume (MCV)on 2022 MCV (RBC) [Entitic vol] 92.4 fL 81-99 [facility] Work Phone: Direct bilirubinon 2 Bilirubin.direct [Mass/Vol] 0.15 mg/dL 0.00-0.30 [facility] Work Phone: Hematocrit Auto (Bld) [Volum e fraction]on 2022 Hematocrit (Bld) [Volume fraction] 43.7 % 37-47 [facility] Work Phone: Laboratory - Chemistry and C hemistry - challengeon 2022 ALP [Catalytic activity/Vol] 102 U/L 45-117 [facility] Work Phone: ALT [Catalytic activity/Vol] 23 U/L 13-56 [facility] Work Phone: CO2 [Moles/Vol] 28.0 mmol/L 21.0-32.0 [facility] Work Phone: Globulin (S) [Mass/Vol] 3.9 g/dL 2.2-4.2 [facility] Work Phone: Urea nitrogen/Creatinine [Mass ratio] 20.5 mg/mg 10-20 [facility] Work Phone: Laboratory - Hematology and Cell countson 2022 Erythrocyte distribution width (RBC) [Entitic vol] 47.0 fL 35.1-43.9 [facility] Work Phone: Erythrocyte distribution width (RBC) [Ratio] 13.8 % 11.6-14.6 [facility] Work Phone: Immature granulocytes/100 WBC (Bld) 0.400 % 0.0-0.9 [facility] Work Phone: Comment on above: IG% - Immature Granu locytes (promyelocytes, myelocytes and metamyelocytes) > 1% indicates that a LEFT SHIFT is Present. MCH (RBC) [Entitic mass] 30.0 pg 27.0-32.0 [facility] Work Phone: Nucleated RBC/100 WBC (Bld) [Ratio] 0 % 0-5 [facility] Work Phone: MCHC Auto (RBC) [Mass/Vol]on 2022 MCHC (RBC) [Mass/Vol] 32.5 g/dL 32-36 [facility] Work Phone: No Panel Informationon 01-28 Estimated GFR (MDRD) Amer 62 mL/min >60 [facility] Work Phone: Comment on above: GFR Calc Estimated GFR (MDRD) Non-Af Amer 52 mL/min >60 [facility] Work Phone: Comment on above: Non- GFR Calc Platelets bldon 2022 Platelets (Bld) [#/Vol] 223 10*3/uL 150-450 [facility] Work Phone: Serum or plasma albumin griffin urement (mass/volume)on 2022 Albumin [Mass/Vol] 3.6 g/dL 3.2-5.0 [facility] Work Phone: Serum or plasma albumin/glob ulin mass ratioon 2022 Albumin/Globulin [Mass ratio] 0.9 {ratio} 0.9-2.4 [facility] Work Phone: Serum or plasma calcium griffin urement (mass/volume)on 2022 Calcium [Mass/Vol] 10.2 mg/dL 8.5-10.1 [facility] Work Phone: Serum or plasma cholesterol in HDL measurement (mass/volume)on 2022 Cholesterol in HDL [Mass/Vol] 50 mg/dL >40 [facility] Work Phone: Comment on above: The drugs N-Acetylcy steine and Metamizole may falsely depress this assay. Reference Range HDL <40 mg/dL Low HDL Cholesterol HDL >or= 60 mg/dL High HDL Cholesterol Serum or plasma cholesterol in VLDL measurement (mass/volume)on 2022 Cholesterol in VLDL [Mass/Vol] 34 mg/dL 5-40 [facility] Work Phone: Serum or plasma creatinine m easurement (mass/volume)on 2022 Creatinine [Mass/Vol] 1.12 mg/dL 0.55-1.02 [facility] Work Phone: Comment on above: The validity of the calculated GFR & GFRAA in patients over 70 years has not been determined. Clinical correlation is essential. Serum or plasma low density lipoprotein (LDL) cholesterol measurement (mass/volume)on 2022 Cholesterol in LDL [Mass/Vol] 105 mg/dL 0-130 [facility] Work Phone: Serum or plasma urea nitroge n measurement (mass/volume)on 2022 Urea nitrogen [Mass/Vol] 23 mg/dL 7-18 [facility] Work Phone: Thin prep Papanicolaou smear with manual screeningon 2022 Thin prep Papanicolaou smear with manual screening 21 U/L 15-37 [facility] Work Phone: Thin prep Papanicolaou smear with manual screening 8 5-15 [facility] Work Phone: Absolute lymphocyte counton 11-30-2021 Lymphocytes Auto (Unsp spec) [#/Vol] 2.67 10*3/uL 0.83-4.51 [facility] Work Phone: Basophil percentageon 2021 Basophils/100 WBC (Bld) 0.9 % 0-1 [facility] Work Phone: Bilirubin [Mass/Vol] 0.50 mg/dL 0.20-1.00 [facility] Work Phone: Comment on above: For patients on eltr ombopag therapy, use of Dimension [place] TBIL is not recommended. Chloride [Moles/Vol] 109 mmol/L 98-107 [facility] Work Phone: Eosinophils/100 WBC (Bld) 1.4 % 0-5 [facility] Work Phone: [phone] Glucose [Mass/Vol] 107 mg/dL 74-106 [facility] Work Phone: Comment on above: Fasting Glucose resu lt from 100 to 125 mg/dL suggests IMPAIRED HOMEOSTASIS per A.D.A. criteria. Neutrophils (Bld) [#/Vol] 2.9 10*3/uL 2.0-7.7 [facility] Work Phone: Neutrophils/100 WBC (Bld) 45.4 % 47-70 [facility] Work Phone: [phone] Potassium [Moles/Vol] 4.1 mmol/L 3.5-5.1 [facility] Work Phone: Protein [Mass/Vol] 7.3 g/dL 6.4-8.2 [facility] Work Phone: Sodium [Moles/Vol] 142 mmol/L 136-145 [facility] Work Phone: [phone] WBC (Bld) [#/Vol] 6.4 10*3/uL 4.4-11.0 [facility] Work Phone: Blood erythrocytes count (nu mber/volume)on 11-30-2021 RBC (Bld) [#/Vol] 4.58 10*6/uL 4.2-5.4 [facility] Work Phone: Blood hemoglobin measurement (mass/volume)on 11-30-2021 Hemoglobin (Bld) [Mass/Vol] 13.9 g/dL 12.0-15.0 [facility] Work Phone: Blood lymphocytes/100 leukoc yteson 11-30-2021 Lymphocytes/100 WBC (Bld) 41.8 % 19-41 [facility] Work Phone: Blood monocytes/100 leukocyt eson 11-30-2021 Monocytes/100 WBC (Bld) 10.2 % 0-10 [facility] Work Phone: Blood platelet mean volumeon 11-30-2021 Platelet mean volume (Bld) [Entitic vol] 9.3 fL 6.2-12.0 [facility] Work Phone: Determination of erythrocyte mean corpuscular volume (MCV)on 11-30-2021 MCV (RBC) [Entitic vol] 94.3 fL 81-99 [facility] Work Phone: Hematocrit Auto (Bld) [Volum e fraction]on 11-30-2021 Hematocrit (Bld) [Volume fraction] 43.2 % 37-47 [facility] Work Phone: Laboratory - Chemistry and C hemistry - challengeon 11-30-2021 ALP [Catalytic activity/Vol] 94 U/L 45-117 [facility] Work Phone: ALT [Catalytic activity/Vol] 23 U/L 13-56 [facility] Work Phone: CO2 [Moles/Vol] 27.0 mmol/L 21.0-32.0 [facility] Work Phone: Globulin (S) [Mass/Vol] 3.9 g/dL 2.2-4.2 [facility] Work Phone: Urea nitrogen/Creatinine [Mass ratio] 22.6 mg/mg 10-20 [facility] Work Phone: Laboratory - Hematology and Cell countson 11-30-2021 Erythrocyte distribution width (RBC) [Entitic vol] 46.5 fL 35.1-43.9 [facility] Work Phone: Erythrocyte distribution width (RBC) [Ratio] 13.4 % 11.6-14.6 [facility] Work Phone: Immature granulocytes/100 WBC (Bld) 0.300 % 0.0-0.9 [facility] Work Phone: Comment on above: IG% - Immature Granu locytes (promyelocytes, myelocytes and metamyelocytes) > 1% indicates that a LEFT SHIFT is Present. MCH (RBC) [Entitic mass] 30.3 pg 27.0-32.0 [facility] Work Phone: Nucleated RBC/100 WBC (Bld) [Ratio] 0 % 0-5 [facility] Work Phone: MCHC Auto (RBC) [Mass/Vol]on 11-30-2021 MCHC (RBC) [Mass/Vol] 32.2 g/dL 32-36 [facility] Work Phone: No Panel Informationon 11-30 Estimated GFR (MDRD) Amer 56 mL/min >60 [facility] Work Phone: Comment on above: GFR Calc Estimated GFR (MDRD) Non-Af Amer 46 mL/min >60 [facility] Work Phone: Comment on above: Non- GFR Calc Platelets bldon 11-30-2021 Platelets (Bld) [#/Vol] 214 10*3/uL 150-450 [facility] Work Phone: Serum or plasma albumin griffin urement (mass/volume)on 11-30-2021 Albumin [Mass/Vol] 3.4 g/dL 3.2-5.0 [facility] Work Phone: Serum or plasma albumin/glob ulin mass ratioon 11-30-2021 Albumin/Globulin [Mass ratio] 0.9 {ratio} 0.9-2.4 [facility] Work Phone: Serum or plasma calcium griffin urement (mass/volume)on 11-30-2021 Calcium [Mass/Vol] 10.1 mg/dL 8.5-10.1 [facility] Work Phone: Serum or plasma creatinine m easurement (mass/volume)on 11-30-2021 Creatinine [Mass/Vol] 1.24 mg/dL 0.55-1.02 [facility] Work Phone: Comment on above: The validity of the calculated GFR & GFRAA in patients over 70 years has not been determined. Clinical correlation is essential. Serum or plasma urea nitroge n measurement (mass/volume)on 11-30-2021 Urea nitrogen [Mass/Vol] 28 mg/dL 7-18 [facility] Work Phone: Thin prep Papanicolaou smear with manual screeningon 11-30-2021 Thin prep Papanicolaou smear with manual screening 19 U/L 15-37 [facility] Work Phone: Thin prep Papanicolaou smear with manual screening 6 5-15 [facility] Work Phone: Urine creatinine measurement (mass/volume)on 10-02-2021 Creatinine (U) [Mass/Vol] 300.00 mg/dL NO RANGE EST. [facility] Work Phone: Urine protein measurement (m ass/volume)on 10-02-2021 Protein (U) [Mass/Vol] 23.1 mg/dL 0.0-11.8 [facility] Work Phone: Urine protein/creatinine mas s ratioon 10-02-2021 Protein/Creatinine (U) [Mass ratio] 77 mg/g CRE 0-200 [facility] Work Phone: Absolute lymphocyte counton 10-01-2021 Lymphocytes Auto (Unsp spec) [#/Vol] 3.21 10*3/uL 0.83-4.51 [facility] Work Phone: Basophil percentageon 2021 Basophils/100 WBC (Bld) 0.8 % 0-1 [facility] Work Phone: Bilirubin [Mass/Vol] 0.50 mg/dL 0.20-1.00 [facility] Work Phone: Comment on above: For patients on eltr ombopag therapy, use of Dimension [place] TBIL is not recommended. Chloride [Moles/Vol] 108 mmol/L 98-107 [facility] Work Phone: Eosinophils/100 WBC (Bld) 0.8 % 0-5 [facility] Work Phone: Glucose [Mass/Vol] 102 mg/dL 74-106 [facility] Work Phone: Comment on above: Fasting Glucose resu lt from 100 to 125 mg/dL suggests IMPAIRED HOMEOSTASIS per A.D.A. criteria. Neutrophils (Bld) [#/Vol] 3.3 10*3/uL 2.0-7.7 [facility] Work Phone: [phone] Neutrophils/100 WBC (Bld) 45.8 % 47-70 [facility] Work Phone: Potassium [Moles/Vol] 3.9 mmol/L 3.5-5.1 [facility] Work Phone: Protein [Mass/Vol] 7.1 g/dL 6.4-8.2 [facility] Work Phone: Sodium [Moles/Vol] 141 mmol/L 136-145 [facility] Work Phone: WBC (Bld) [#/Vol] 7.3 10*3/uL 4.4-11.0 [facility] Work Phone: Blood erythrocytes count (nu mber/volume)on 10-01-2021 RBC (Bld) [#/Vol] 4.48 10*6/uL 4.2-5.4 [facility] Work Phone: Blood hemoglobin measurement (mass/volume)on 10-01-2021 Hemoglobin (Bld) [Mass/Vol] 13.3 g/dL 12.0-15.0 [facility] Work Phone: Blood lymphocytes/100 leukoc yteson 10-01-2021 Lymphocytes/100 WBC (Bld) 44.0 % 19-41 [facility] Work Phone: Blood monocytes/100 leukocyt eson 10-01-2021 Monocytes/100 WBC (Bld) 8.2 % 0-10 [facility] Work Phone: Blood platelet mean volumeon 10-01-2021 Platelet mean volume (Bld) [Entitic vol] 9.4 fL 6.2-12.0 [facility] Work Phone: Determination of erythrocyte mean corpuscular volume (MCV)on 10-01-2021 MCV (RBC) [Entitic vol] 92.2 fL 81-99 [facility] Work Phone: Hematocrit Auto (Bld) [Volum e fraction]on 10-01-2021 Hematocrit (Bld) [Volume fraction] 41.3 % 37-47 [facility] Work Phone: Laboratory - Chemistry and C hemistry - challengeon 10-01-2021 ALP [Catalytic activity/Vol] 82 U/L 45-117 [facility] Work Phone: ALT [Catalytic activity/Vol] 22 U/L 13-56 [facility] Work Phone: CO2 [Moles/Vol] 28.0 mmol/L 21.0-32.0 [facility] Work Phone: Globulin (S) [Mass/Vol] 3.8 g/dL 2.2-4.2 [facility] Work Phone: Urea nitrogen/Creatinine [Mass ratio] 18.6 mg/mg 10-20 [facility] Work Phone: Laboratory - Hematology and Cell countson 10-01-2021 Erythrocyte distribution width (RBC) [Entitic vol] 52.1 fL 35.1-43.9 [facility] Work Phone: Erythrocyte distribution width (RBC) [Ratio] 15.4 % 11.6-14.6 [facility] Work Phone: Immature granulocytes/100 WBC (Bld) 0.400 % 0.0-0.9 [facility] Work Phone: Comment on above: IG% - Immature Granu locytes (promyelocytes, myelocytes and metamyelocytes) > 1% indicates that a LEFT SHIFT is Present. MCH (RBC) [Entitic mass] 29.7 pg 27.0-32.0 [facility] Work Phone: Nucleated RBC/100 WBC (Bld) [Ratio] 0 % 0-5 [facility] Work Phone: MCHC Auto (RBC) [Mass/Vol]on 10-01-2021 MCHC (RBC) [Mass/Vol] 32.2 g/dL 32-36 [facility] Work Phone: No Panel Informationon 10-01 Estimated GFR (MDRD) Amer 59 mL/min >60 [facility] Work Phone: Comment on above: GFR Calc Estimated GFR (MDRD) Non-Af Amer 49 mL/min >60 [facility] Work Phone: Comment on above: Non- GFR Calc Platelets bldon 10-01-2021 Platelets (Bld) [#/Vol] 240 10*3/uL 150-450 [facility] Work Phone: Serum or plasma albumin griffin urement (mass/volume)on 10-01-2021 Albumin [Mass/Vol] 3.3 g/dL 3.2-5.0 [facility] Work Phone: Serum or plasma albumin/glob ulin mass ratioon 10-01-2021 Albumin/Globulin [Mass ratio] 0.9 {ratio} 0.9-2.4 [facility] Work Phone: Serum or plasma calcium griffin urement (mass/volume)on 10-01-2021 Calcium [Mass/Vol] 9.7 mg/dL 8.5-10.1 [facility] Work Phone: Serum or plasma creatinine m easurement (mass/volume)on 10-01-2021 Creatinine [Mass/Vol] 1.18 mg/dL 0.55-1.02 [facility] Work Phone: Comment on above: The validity of the calculated GFR & GFRAA in patients over 70 years has not been determined. Clinical correlation is essential. Serum or plasma urea nitroge n measurement (mass/volume)on 10-01-2021 Urea nitrogen [Mass/Vol] 22 mg/dL - [facility] Work Phone: Thin prep Papanicolaou smear with manual screeningon 10-01-2021 Thin prep Papanicolaou smear with manual screening 16 U/L 15-37 [facility] Work Phone: Thin prep Papanicolaou smear with manual screening 5 5-15 [facility] Work Phone: Basophil percentageon 2021 Bilirubin [Mass/Vol] 0.80 mg/dL 0.20-1.00 [facility] Work Phone: Comment on above: For patients on eltr ombopag therapy, use of Dimension [place] TBIL is not recommended. Chloride [Moles/Vol] 105 mmol/L 98-107 [facility] Work Phone: Glucose [Mass/Vol] 118 mg/dL 74-106 [facility] Work Phone: Comment on above: Fasting Glucose resu lt from 100 to 125 mg/dL suggests IMPAIRED HOMEOSTASIS per A.D.A. criteria. Potassium [Moles/Vol] 3.9 mmol/L 3.5-5.1 [facility] Work Phone: Protein [Mass/Vol] 8.0 g/dL 6.4-8.2 [facility] Work Phone: Sodium [Moles/Vol] 139 mmol/L 136-145 [facility] Work Phone: Bilirubin Test strip Ql (U)o n 07-11-2021 Bilirubin Ql (U) Negative Negative [facility] Work Phone: Ketones Test strip Ql (U)on 07-11-2021 Ketones Ql (U) Negative Negative [facility] Work Phone: Laboratory - Chemistry and C hemistry - challengeon 07-11-2021 ALP [Catalytic activity/Vol] 165 U/L 45-117 [facility] Work Phone: ALT [Catalytic activity/Vol] 63 U/L 13-56 [facility] Work Phone: CO2 [Moles/Vol] 26.0 mmol/L 21.0-32.0 [facility] Work Phone: Globulin (S) [Mass/Vol] 5.2 g/dL 2.2-4.2 [facility] Work Phone: Urea nitrogen/Creatinine [Mass ratio] 16.1 mg/mg 10-20 [facility] Work Phone: Nitrite Test strip Ql (U)on 07-11-2021 Nitrite Ql (U) Negative Negative [facility] Work Phone: No Panel Informationon 07-11 Estimated GFR (MDRD) Amer 63 mL/min >60 [facility] Work Phone: Comment on above: GFR Calc Estimated GFR (MDRD) Non-Af Amer 52 mL/min >60 [facility] Work Phone: Comment on above: Non- GFR Calc Miscellaneous Test Comment MAILED SPECIMEN [facility] Work Phone: Protein Test strip Ql (U)on 07-11-2021 Protein Ql (U) Negative Negative [facility] Work Phone: Serum or plasma albumin griffin urement (mass/volume)on 07-11-2021 Albumin [Mass/Vol] 2.8 g/dL 3.2-5.0 [facility] Work Phone: Serum or plasma albumin/glob ulin mass ratioon 07-11-2021 Albumin/Globulin [Mass ratio] 0.5 {ratio} 0.9-2.4 [facility] Work Phone: Serum or plasma calcium griffin urement (mass/volume)on 07-11-2021 Calcium [Mass/Vol] 9.7 mg/dL 8.5-10.1 [facility] Work Phone: Serum or plasma creatinine m easurement (mass/volume)on 07-11-2021 Creatinine [Mass/Vol] 1.12 mg/dL 0.55-1.02 [facility] Work Phone: Comment on above: The validity of the calculated GFR & GFRAA in patients over 70 years has not been determined. Clinical correlation is essential. Serum or plasma urea nitroge n measurement (mass/volume)on 07-11-2021 Urea nitrogen [Mass/Vol] 18 mg/dL 7-18 [facility] Work Phone: Thin prep Papanicolaou smear with manual screeningon 07-11-2021 Thin prep Papanicolaou smear with manual screening 37 U/L 15-37 [facility] Work Phone: Thin prep Papanicolaou smear with manual screening 8 5-15 [facility] Work Phone: Urine blood detectionon 06-16 RBC Ql (U) Negative Negative [facility] Work Phone: Urine clarityon 07-11-2021 Clarity (U) Clear Clear [facility] Work Phone: Urine color determinationon 07-11-2021 Color (U) Yellow Yellow [facility] Work Phone: Urine creatinine measurement (mass/volume)on 07-11-2021 Creatinine (U) [Mass/Vol] 191.00 mg/dL NO RANGE EST. [facility] Work Phone: Urine glucose detectionon Glucose Ql (U) Normal mg/dl Normal [facility] Work Phone: Urine leukocyte esterase det ection by dipstickon 07-11-2021 Leukocyte esterase Test strip Ql (U) 25 /ul Negative [facility] Work Phone: Urine pHon 07-11-2021 pH (U) 5.0 [pH] 5.0 - 8.0 [facility] Work Phone: Urine protein measurement (m ass/volume)on 07-11-2021 Protein (U) [Mass/Vol] 100.9 mg/dL 0.0-11.8 [facility] Work Phone: Urine protein/creatinine mas s ratioon 07-11-2021 Protein/Creatinine (U) [Mass ratio] 528 mg/g CRE 0-200 [facility] Work Phone: Urine specific gravity measu rementon 07-11-2021 Specific gravity (U) [Rel density] 1.020 1.002-1.030 [facility] Work Phone: Urobilinogen Auto test strip Ql (U)on 07-11-2021 Urobilinogen Ql (U) Normal mg/dl Normal [facility] Work Phone: Absolute lymphocyte counton 06-27-2021 Lymphocytes Auto (Unsp spec) [#/Vol] 2.99 10*3/uL 0.83-4.51 [facility] Work Phone: Basophil percentageon 2021 Basophils/100 WBC (Bld) 0.7 % 0-1 [facility] Work Phone: Bilirubin [Mass/Vol] 0.60 mg/dL 0.20-1.00 [facility] Work Phone: Comment on above: For patients on eltr ombopag therapy, use of Dimension [place] TBIL is not recommended. Chloride [Moles/Vol] 107 mmol/L 98-107 [facility] Work Phone: Eosinophils/100 WBC (Bld) 0.7 % 0-5 [facility] Work Phone: Glucose [Mass/Vol] 115 mg/dL 74-106 [facility] Work Phone: Comment on above: Fasting Glucose resu lt from 100 to 125 mg/dL suggests IMPAIRED HOMEOSTASIS per A.D.A. criteria. Neutrophils (Bld) [#/Vol] 4.6 10*3/uL 2.0-7.7 [facility] Work Phone: Neutrophils/100 WBC (Bld) 53.6 % 47-70 [facility] Work Phone: Potassium [Moles/Vol] 4.0 mmol/L 3.5-5.1 [facility] Work Phone: Protein [Mass/Vol] 7.8 g/dL 6.4-8.2 [facility] Work Phone: Sodium [Moles/Vol] 139 mmol/L 136-145 [facility] Work Phone: WBC (Bld) [#/Vol] 8.5 10*3/uL 4.4-11.0 [facility] Work Phone: Blood erythrocytes count (nu mber/volume)on 06-27-2021 RBC (Bld) [#/Vol] 4.76 10*6/uL 4.2-5.4 [facility] Work Phone: Blood hemoglobin measurement (mass/volume)on 06-27-2021 Hemoglobin (Bld) [Mass/Vol] 14.0 g/dL 12.0-15.0 [facility] Work Phone: Blood lymphocytes/100 leukoc yteson 06-27-2021 Lymphocytes/100 WBC (Bld) 35.0 % 19-41 [facility] Work Phone: [phone] Blood monocytes/100 leukocyt eson 06-27-2021 Monocytes/100 WBC (Bld) 9.6 % 0-10 [facility] Work Phone: Blood platelet mean volumeon 06-27-2021 Platelet mean volume (Bld) [Entitic vol] 9.6 fL 6.2-12.0 [facility] Work Phone: Determination of erythrocyte mean corpuscular volume (MCV)on 06-27-2021 MCV (RBC) [Entitic vol] 90.3 fL 81-99 [facility] Work Phone: Erythrocyte sedimentation ra magdalena 06-27-2021 ESR (Bld) [Velocity] 55 mm[facility]h [facility]: Hematocrit Auto (Bld) [Volum e fraction]on 06-27-2021 Hematocrit (Bld) [Volume fraction] 43.0 % 37-47 [facility] Work Phone: Laboratory - Chemistry and C hemistry - challengeon 06-27-2021 ALP [Catalytic activity/Vol] 112 U/L 45-117 [facility] Work Phone: ALT [Catalytic activity/Vol] 25 U/L 13-56 [facility] Work Phone: CO2 [Moles/Vol] 27.0 mmol/L 21.0-32.0 [facility] Work Phone: Globulin (S) [Mass/Vol] 4.3 g/dL 2.2-4.2 [facility] Work Phone: Urea nitrogen/Creatinine [Mass ratio] 24.0 mg/mg 10-20 [facility] Work Phone: Laboratory - Hematology and Cell countson 06-27-2021 Erythrocyte distribution width (RBC) [Entitic vol] 47.6 fL 35.1-43.9 [facility] Work Phone: Erythrocyte distribution width (RBC) [Ratio] 14.3 % 11.6-14.6 [facility] Work Phone: Immature granulocytes/100 WBC (Bld) 0.400 % 0.0-0.9 [facility] Work Phone: [phone] Comment on above: IG% - Immature Granu locytes (promyelocytes, myelocytes and metamyelocytes) > 1% indicates that a LEFT SHIFT is Present. MCH (RBC) [Entitic mass] 29.4 pg 27.0-32.0 [facility] Work Phone: Nucleated RBC/100 WBC (Bld) [Ratio] 0 % 0-5 [facility] Work Phone: MCHC Auto (RBC) [Mass/Vol]on 06-27-2021 MCHC (RBC) [Mass/Vol] 32.6 g/dL 32-36 [facility] Work Phone: No Panel Informationon 06-27 Anti-Nuclear Antibody Screen Positive Negative [facility] Work Phone: Comment on above: Performed at: - [facility] [address] [id number] Director: Chad Haskins PhD, Phone: [phone] Estimated GFR (MDRD) Amer 55 mL/min >60 [facility] Work Phone: Comment on above: GFR Calc Estimated GFR (MDRD) Non-Af Amer 46 mL/min >60 [facility] Work Phone: Comment on above: Non- GFR Calc Hepatitis B Surface Antigen Non-Reactive Nonreactive [facility] Work Phone: Hepatitis C Antibody Non-Reactive Nonreactive [facility] Work Phone: Comment on above: Non Reactive: < 0.8 Equivocal: >/= 0.8 to < 1.0 Reactive: >/= 1.0The CDC recommends that a reactive/equivocal HCV antibody result be followed up by the HCV Nucleic Acid Amplificationtest (878750) Platelets bldon 06-27-2021 Platelets (Bld) [#/Vol] 249 10*3/uL 150-450 [facility] Work Phone: Serum cyclic citrullinated p eptide IgG antibody assay (units/volume)on 06-27-2021 Cyclic citrullinated peptide IgG Qn 4 units 0-19 [facility] Work Phone: Comment on above: Negative <20 Weak po sitive 20 - 39 Moderate positive 40 - 59 Strong positive >59Performed at: - [facility] [address] [id number] Director: Beth Moore MD, Phone: [phone] Serum hepatitis B virus surf maria luisa antibody IgG detectionon 06-27-2021 HBV surface IgG Ql (S) Reactive [facility] Work Phone: Comment on above: Non Reactive: Incons istent with immunity less than <10 mIU/mL Reactive: Consistent with immunity greater than or equal to 10 mIU/mL Serum or plasma C reactive p rotein measurement (mass/volume)on 06-27-2021 CRP [Mass/Vol] 17.50 mg/L 0.0-3.0 [facility] Work Phone: Comment on above: C-Reactive Protein ( CRP) provides useful information for thediagnosis, therapy and monitoring of inflammatory processesand associated diseases. For the evaluation of Relative Riskfor Cardiovascular Disease, a High Sensitivity CRP (HSCRP)should be ordered. Serum or plasma albumin griffin urement (mass/volume)on 06-27-2021 Albumin [Mass/Vol] 3.5 g/dL 3.2-5.0 [facility] Work Phone: Serum or plasma albumin/glob ulin mass ratioon 06-27-2021 Albumin/Globulin [Mass ratio] 0.8 {ratio} 0.9-2.4 [facility] Work Phone: Serum or plasma calcium griffin urement (mass/volume)on 06-27-2021 Calcium [Mass/Vol] 10.1 mg/dL 8.5-10.1 [facility] Work Phone: Serum or plasma creatinine m easurement (mass/volume)on 06-27-2021 Creatinine [Mass/Vol] 1.25 mg/dL 0.55-1.02 [facility] Work Phone: Comment on above: The validity of the calculated GFR & GFRAA in patients over 70 years has not been determined. Clinical correlation is essential. Serum or plasma urea nitroge n measurement (mass/volume)on 06-27-2021 Urea nitrogen [Mass/Vol] 30 mg/dL 7-18 [facility] Work Phone: Serum rheumatoid factor dete ctionon 06-27-2021 Rheumatoid factor Ql (S) 53.0 IU/mL <15 [facility] Work Phone: Thin prep Papanicolaou smear with manual screeningon 06-27-2021 Thin prep Papanicolaou smear with manual screening 18 U/L 15-37 [facility] Work Phone: Thin prep Papanicolaou smear with manual screening 5 5-15 [facility] Work Phone: CT ABDOMEN W/O CONon [...] JULIAN M.D. Signed By: CHADD JULIAN M.D. [facility] FINE NEEDLE ASPIRATION THYRO IDon 03-14-2017 FINE [...] on File ----Signed By: Kenyon Castaneda [email or web address] mDictated: 03/14/2017 11:14 AMSigned: 03/14/2017 11:17 AM Reported By: KENYON CASTANEDA M.D. Signed By: KENYON CASTANEDA M.D. [facility] Rachna Brown 03-14-2017 NONGYN - --------Patient: ANH EWING Speci men: [id number] Spec Type: NONGYN Ord. Dr.: Lucy Santos [...] nodule.Signed Verified/Reviewed by JORGITO GIVENS MD 03/19/17 --------[facility] NAME: GILDARDOANH E Pathology and Laboratory Medicine UNIT#: [id number] LOC: [facility] [employer] Head: Ban Fong M.D. [id number]/BED: [facility] : 55 AGE/SEX: 62/F ORD.Lucy Teague MD END OF REPORT Normal [facility] [place] US THYROID OR NECKon 017 US THYROID [...] M.D. Signed By: KENYON CASTANEDA M.D. Normal [facility] [place] Basic Metabolic Panelon 02-14 Anion gap 14 mmol/L Normal 9-17 [facility] Comment on above: Order Comment: CALL doctor [id number] tel. , fax [phone] by Dr Lucy Santos Result Comment: Effe ctive: 02/24/2017Reference Range Modified Calcium 9.3 mg/dL Normal 8.6-10.2 [facility] Comment on above: Order Comment: CALL doctor [id number] tel. , fax [phone] by Dr Lucy Santos Chloride 104 mmol/L Normal 98-107 [facility] Comment on above: Order Comment: CALL doctor [id number] tel. , fax [phone] by Dr Lucy Santos Result Comment: Effe ctive: 02/24/2017Reference Range Modified CO2 27 mmol/L Critically high 17-24 [facility] Comment on above: Order Comment: CALL doctor [id number] tel. , fax [phone] by Dr Lucy Santos Result Comment: Effe ctive: 02/24/2017Reference Range Modified Creatinine 0.88 mg/dL Normal 0.50-0.90 [facility] Comment on above: Order Comment: CALL doctor [id number] tel. , fax [phone] by Dr Lucy Santos eGFR (black) mL/min/{1.73_m2} Normal >60 [facility] Comment on above: Order Comment: CALL doctor [id number] tel. , fax [phone] by Dr Lucy Santos Result Comment: >60 mL/min/1.73m2 EGFR, calc. for ages 18 and older using theMDRD formula (not corrected for weight), is valid for stablerenal function. eGFR (MDRD) mL/min/{1.73_m2} Normal >60 [facility] Comment on above: Order Comment: CALL doctor [id number] tel. , fax [phone] by Dr Lucy Santos Result Comment: >60 mL/min/1.73m2 EGFR, calc. for ages 18 and older using theMDRD formula (not corrected for weight), is valid for stablerenal function. Glucose mass conc 105 mg/dL Normal 74-109 [facility] Comment on above: Order Comment: CALL doctor [id number] tel. , fax [phone] by Dr Lucy Santos Potassium molar conc 4.6 mmol/L Critically high 3.2-4.4 [facility] Comment on above: Order Comment: CALL doctor [id number] tel. , fax [phone] by Dr Lucy Santos Result Comment: Effe ctive: 02/24/2017Reference Range Modified Sodium 145 mmol/L Critically high 132-138 [facility] Comment on above: Order Comment: CALL doctor [id number] tel. , fax [phone] by Dr Lucy Santos Result Comment: Effe ctive: 02/24/2017Reference Range Modified Urea nitrogen 26 mg/dL Critically high 8-23 [facility] Comment on above: Order Comment: CALL doctor [id number] tel. , fax [phone] by Dr Lucy Santos Hemoglobin A1con 02-25-2017 Hemoglobin A1c/Hemoglobin.total mass fraction (Bld) 5.9 % Normal 4.8-5.9 [facility] Comment on above: Order Comment: CALL doctor [id number] tel. , fax [phone] by Dr Lucy Santos Lipid Panelon 02-25-2017 Cholesterol 190 mg/dL Normal 0-199 [facility] Comment on above: Order Comment: CALL doctor [id number] tel. , fax [phone] by Dr Lucy Santos Result Comment: ATP III Cholesterol classification is Desirable. HDL Cholesterol 41 mg/dL Normal 40-59 [facility] Comment on above: Order Comment: CALL doctor [id number] tel. , fax [phone] by Dr Lucy Santos Result Comment: ATP III HDL Cholesterol Classification is Desirable.Expected Values:Males: >55 = No Risk 35-55 = Moderate Risk <35 = High RiskFemales: >65 = No Risk 45-65 = Moderate Risk <45 = High RiskNCEP Guidelines: Third Report July 2000>59 = negative risk factor for CHD<40 = major risk factor for CHD LDL Cholesterol 100 mg/dL Normal 0-129 [facility] Comment on above: Order Comment: CALL doctor [id number] tel. , fax [phone] by Dr Lucy Santos Result Comment: ATP III LDL Classification is Near Optimal. Triglyceride 247 mg/dL Critically high 0-200 [facility] Comment on above: Order Comment: CALL doctor [id number] tel. , fax [phone] by Dr Lucy Santos Result Comment: ATP [...] Electronic Signature on File ----Signed By: Lindsey [email or web address] [email or web address]. mDictated: 11/20/2016 8:30 AMSigned: 11/20/2016 8:35 AM Reported By: RADHA CORDON M.D. Signed By: RADHA CORDON M.D. Normal [facility] CARD.Echoon 09-21-2016 CARD.Echo [Embedded Image Not Available][facility]: [id number] [facility] [place] : [address] [address] Unit Number: [id number] Number: [id number] Patient Status: REG CLIAttending Doctor: Lucy Santos MDService Date: 09/21/16 1825EchocardiogramStu dy Date: 09/19/16llergies:Cod ed Allergies:SULFA (SULFONAMIDE ANTIBIOTICS) (Mild, 10/10/11)Summary:[facility] [place], [place] [id number] Cardiac DiagnosticsName: ANH EWING Study Date: 09/19/2016 09:04 AM BP: 153/75 mmHgMRN: [id number] Patient Location: op HR: 56DOB: 1955 Gender: Female Height: 64 inAge: 61 yrs Weight: 275 lbReason For Study: DYSPNEABSA: 2.2 [id number]: Dyspnea or SOB,Hypertension,Lung Disease,Edema,Light-h eaded,SyncopeInterpre tation SummaryLeft [...] d apical: 8.6 cmLVAd sax PM: 15.9 xz3Tlgr MeasurementsAortic R-R: 1.2 secAortic HR: 52.0 BPMDoppler [...] may exist.eSign Date and TimePatel,Nicolas Portillo MD [facility] Echocardiogram This is a preliminar y report only, as the practitioner review and authentication has not occurred. [facility] No Panel Information [facility] Vital Signs Date Time Vital Sign Value Performing Clinician Facility 12-22-2024 08:01-0400 Body height 162.[address] Moni Velásquez MD Work Phone: [facility] 12-22-2024 08:01-0400 Body mass index (BMI) [Ratio] 48.5 kg/m2 Dr. Moni Velásquez MD Work Phone: [facility] 12-22-2024 08:01-0400 Body temperature 96.7 [degF] Dr. Moni Velásquez MD Work Phone: [facility] 12-22-2024 08:01-0400 Body weight 128.36 kg Dr. Moni Velásquez MD Work Phone: [facility] 12-22-2024 08:01-0400 Diastolic blood pressure 72 mm[Hg] Dr. Moni Velásquez MD Work Phone: [facility] 12-22-2024 08:01-0400 Heart rate 55 /min Dr. Moni Velásquez MD Work Phone: [facility] 12-22-2024 08:01-0400 Respiratory rate 16 /min Dr. Moni Velásquez MD Work Phone: [facility] 12-22-2024 08:01-0400 SaO2% (BldA) [Mass fraction] 96 % Dr. Moni Velásquez MD Work Phone: [facility] 12-22-2024 08:01-0400 Systolic blood pressure 122 mm[Hg] Dr. Moni Velásquez MD Work Phone: [facility] 10-19-2024 10:39-0400 Body height 162.[address] Moni Velásquez MD Work Phone: [facility] 10-19-2024 10:39-0400 Body mass index (BMI) [Ratio] 48 kg/m2 Dr. Moni Velásquez MD Work Phone: [facility] 10-19-2024 10:39-0400 Body weight [address] Moni Velásquez MD Work Phone: [facility] 10-19-2024 10:39-0400 Diastolic blood pressure 77 mm[Hg] Dr. Moni Velásquez MD Work Phone: [facility] 10-19-2024 10:39-0400 Heart rate 54 /min Dr. Moni Velásquez MD Work Phone: [facility] 10-19-2024 10:39-0400 Systolic blood pressure 125 mm[Hg] Dr. Moni Velásquez MD Work Phone: [facility] 09-23-2024 13:03-0400 Body height 162.[address] Moni Velásquez MD Work Phone: [facility] 09-23-2024 13:03-0400 Body mass index (BMI) [Ratio] 48 kg/m2 Dr. Moni Velásquez MD Work Phone: [facility] 09-23-2024 13:03-0400 Body temperature 97.8 [degF] Dr. Moni Velásquez MD Work Phone: [facility] 09-23-2024 13:03-0400 Body weight [address] Moni Velásquez MD Work Phone: [facility] 09-23-2024 13:03-0400 Diastolic blood pressure 68 mm[Hg] Dr. Moni Velásquez MD Work Phone: [facility] 09-23-2024 13:03-0400 Heart rate 66 /min Dr. Moni Velásquez MD Work Phone: [facility] 09-23-2024 13:03-0400 Respiratory rate 18 /min Dr. Moni Velásquez MD Work Phone: [facility] 09-23-2024 13:03-0400 SaO2% (BldA) [Mass fraction] 93 % Dr. Moni Velásquez MD Work Phone: [facility] 09-23-2024 13:03-0400 Systolic blood pressure 132 mm[Hg] Dr. Moni Velásquez MD Work Phone: [facility] 05-19-2024 09:45-0500 Body height 162.[address] Moni Velásquez MD Work Phone: [facility] 05-19-2024 09:45-0500 Body mass index (BMI) [Ratio] 48.5 kg/m2 Dr. Moni Velásquez MD Work Phone: [facility] 05-19-2024 09:45-0500 Body temperature 96.2 [degF] Dr. Moni Velásquez MD Work Phone: [facility] 05-19-2024 09:45-0500 Body weight 128.[address] Moni Velásquez MD Work Phone: [facility] 05-19-2024 09:45-0500 Diastolic blood pressure 74 mm[Hg] Dr. Moni Velásquez MD Work Phone: [facility] 05-19-2024 09:45-0500 Heart rate 59 /min Dr. Moni Velásquez MD Work Phone: [facility] 05-19-2024 09:45-0500 Respiratory rate 16 /min Dr. Moni Velásquez MD Work Phone: [facility] 05-19-2024 09:45-0500 SaO2% (BldA) [Mass fraction] 95 % Dr. Moni Velásquez MD Work Phone: [facility] 05-19-2024 09:45-0500 Systolic blood pressure 128 mm[Hg] Dr. Moni Velásquez MD Work Phone: [facility] 02-18-2024 09:48-0500 Body mass index (BMI) [Ratio] 47.3 kg/m2 Dr. Moni Velásquez MD Work Phone: [facility] 02-18-2024 09:48-0500 Body temperature 97.8 [degF] Dr. Moni Velásquez MD Work Phone: [facility] 02-18-2024 09:48-0500 Body weight 125.[address] Moni Velásquez MD Work Phone: [facility] 02-18-2024 09:48-0500 Diastolic blood pressure 66 mm[Hg] Dr. Moni Velásquez MD Work Phone: [facility] 02-18-2024 09:48-0500 Heart rate 75 /min Dr. Moni Velásquez MD Work Phone: [facility] 02-18-2024 09:48-0500 Respiratory rate 16 /min Dr. Moni Velásquez MD Work Phone: [facility] 02-18-2024 09:48-0500 SaO2% (BldA) [Mass fraction] 95 % Dr. Moni Velásquez MD Work Phone: [facility] 02-18-2024 09:48-0500 Systolic blood pressure 120 mm[Hg] Dr. Moni Velásquez MD Work Phone: [facility] 05-08-2023 14:40-0500 Body height 162.[address] Moni Velásquez Work Phone: [facility] 05-08-2023 14:40-0500 Body mass index (BMI) [Ratio] 46.7 kg/m2 Dr. Moni Velásquez Work Phone: [facility] 05-08-2023 14:40-0500 Body temperature 98 [degF] Dr. Moni Velásquez Work Phone: [facility] 05-08-2023 14:40-0500 Body weight 123.[address] Moni Velásquez Work Phone: [facility] 05-08-2023 14:40-0500 Diastolic blood pressure 84 mm[Hg] Dr. Moni Velásquez Work Phone: [facility] 05-08-2023 14:40-0500 Heart rate 60 /min Dr. Moni Velásquez Work Phone: [facility] 05-08-2023 14:40-0500 Respiratory rate 18 /min Dr. Moni Velásquez Work Phone: [facility] 05-08-2023 14:40-0500 SaO2% (BldA) [Mass fraction] 98 % Dr. Moni Velásquez Work Phone: [facility] 05-08-2023 14:40-0500 Systolic blood pressure 136 mm[Hg] Dr. Moni Velásquez Work Phone: [facility] 05-01-2023 10:52-0500 Body height 162.[address] Moni Velásquez Work Phone: [facility] 05-01-2023 10:52-0500 Body mass index (BMI) [Ratio] 46.1 kg/m2 Dr. Moni Velásquez Work Phone: [facility] 05-01-2023 10:52-0500 Body temperature 97.3 [degF] Dr. Moni Velásquez Work Phone: [facility] 05-01-2023 10:52-0500 Body weight 122.[address] Moni Velásquez Work Phone: [facility] 05-01-2023 10:52-0500 Diastolic blood pressure 80 mm[Hg] Dr. Moni Velásquez Work Phone: [facility] 05-01-2023 10:52-0500 Heart rate 65 /min Dr. Moni Velásquez Work Phone: [facility] 05-01-2023 10:52-0500 Respiratory rate 16 /min Dr. Moni Velásquez Work Phone: [facility] 05-01-2023 10:52-0500 SaO2% (BldA) [Mass fraction] 96 % Dr. Moni Velásquez Work Phone: [facility] 05-01-2023 10:52-0500 Systolic blood pressure 122 mm[Hg] Dr. Moni Velásquez Work Phone: [facility] 04-25-2023 10:33-0500 Body height 164.2 cm Aric Guerrier MD Work Phone: [facility] 04-25-2023 10:33-0500 Body temperature 97.11 [degF] Aric Guerrier MD Work Phone: [facility] 04-25-2023 10:33-0500 Body weight 122.24 kg rAic Guerrier MD Work Phone: [facility] 04-25-2023 10:33-0500 Diastolic blood pressure 70 mm[Hg] Aric Guerrier MD Work Phone: [facility] 04-25-2023 10:33-0500 Heart rate 60 /min Aric Guerrier MD Work Phone: [facility] 04-25-2023 10:33-0500 SaO2% (BldA) [Mass fraction] 96 % Aric Guerrier MD Work Phone: [facility] 04-25-2023 10:33-0500 Systolic blood pressure 105 mm[Hg] Aric Guerrier MD Work Phone: [facility] 04-17-2023 11:25-0500 Body mass index (BMI) [Ratio] 46.5 kg/m2 Dr. Moni Velásquez Work Phone: [facility] 04-17-2023 11:25-0500 Body temperature 98.3 [degF] Dr. Moni Velásquez Work Phone: [facility] 04-17-2023 11:25-0500 Body weight 122.[address] Moni Velásquez Work Phone: [facility] 04-17-2023 11:25-0500 Diastolic blood pressure 70 mm[Hg] Dr. Moni Velásquez Work Phone: [facility] 04-17-2023 11:25-0500 Heart rate 68 /min Dr. Moni Velásquez Work Phone: [facility] 04-17-2023 11:25-0500 Respiratory rate 20 /min Dr. Moni Velásquez Work Phone: [facility] 04-17-2023 11:25-0500 SaO2% (BldA) [Mass fraction] 91 % Dr. Moni Velásquez Work Phone: [facility] 04-17-2023 11:25-0500 Systolic blood pressure 108 mm[Hg] Dr. Moni Velásquez Work Phone: [facility] 04-09-2023 09:44-0500 Inhaled oxygen flow rate 2 L/min Dr. Moni Velásquez Work Phone: [facility] 04-09-2023 09:44-0500 SaO2% (BldA) [Mass fraction] 92 % Dr. Moni Velásquez Work Phone: [facility] 04-09-2023 08:58-0500 Body temperature 98.1 [degF] Dr. Moni Velásquez Work Phone: [facility] 04-09-2023 08:58-0500 Diastolic blood pressure 86 mm[Hg] Dr. Moni Velásquez Work Phone: [facility] 04-09-2023 08:58-0500 Heart rate 68 /min Dr. Moni Velásquez Work Phone: [facility] 04-09-2023 08:58-0500 Respiratory rate 17 /min Dr. Moni Velásquez Work Phone: [facility] 04-09-2023 08:58-0500 Systolic blood pressure 98 mm[Hg] Dr. Moni Velásquez Work Phone: [facility] 04-08-2023 17:18-0500 Body temperature 98 [degF] Dr. Moni Velásquez Work Phone: [facility] 04-08-2023 17:18-0500 Diastolic blood pressure 79 mm[Hg] Dr. Moni Velásquez Work Phone: [facility] 04-08-2023 17:18-0500 Heart rate 62 /min Dr. Moni Velásquez Work Phone: [facility] 04-08-2023 17:18-0500 Respiratory rate 17 /min Dr. Moni Velásquez Work Phone: [facility] 04-08-2023 17:18-0500 SaO2% (BldA) [Mass fraction] 95 % Dr. Moni Velásquez Work Phone: [facility] 04-08-2023 17:18-0500 Systolic blood pressure 102 mm[Hg] Dr. Moni Velásquez Work Phone: [facility] 04-08-2023 03:00-0500 Inhaled oxygen flow rate 2 L/min Dr. Moni Velásquez Work Phone: [facility] 04-07-2023 15:39-0500 Body height 162.[address] Moni Velásquez Work Phone: [facility] 04-07-2023 15:39-0500 Body weight 123.[address] Moni Velásquez Work Phone: [facility] 04-06-2023 12:05-0500 Body mass index (BMI) [Ratio] 46.8 kg/m2 Dr. Moni Velásquez Work Phone: [facility] 04-06-2023 11:43-0500 Diastolic blood pressure 59 mm[Hg] Dr. Moni Velásquez Work Phone: [facility] 04-06-2023 11:43-0500 Heart rate 75 /min Dr. Moni Velásquez Work Phone: [facility] 04-06-2023 11:43-0500 Respiratory rate 22 /min Dr. Moni Velásquez Work Phone: [facility] 04-06-2023 11:43-0500 SaO2% (BldA) [Mass fraction] 97 % Dr. Moni Velásquez Work Phone: [facility] 04-06-2023 11:43-0500 Systolic blood pressure 111 mm[Hg] Dr. Moni Velásquez Work Phone: [facility] 04-06-2023 10:05-0500 Body mass index (BMI) [Ratio] 47.2 kg/m2 Dr. Moni Velásquez Work Phone: [facility] 04-06-2023 10:05-0500 Body weight 124.[address] Moni Velásquez Work Phone: [facility] 04-06-2023 09:52-0500 Inhaled oxygen concentration 98 % Dr. Moni Velásquez Work Phone: [facility] 04-06-2023 09:52-0500 Inhaled oxygen flow rate 2 L/min Dr. Moni Velásquez Work Phone: [facility] 04-06-2023 09:25-0500 Body height 162.[address] Moni Velásquez Work Phone: [facility] 04-06-2023 09:25-0500 Body temperature 98.1 [degF] Dr. Moni Velásquez Work Phone: [facility] 04-03-2023 08:57-0500 Body mass index (BMI) [Ratio] 47.3 kg/m2 Dr. Moni Velásquez Work Phone: [facility] 04-03-2023 08:57-0500 Body weight 125.[address] Moni Velásquez Work Phone: [facility] 04-03-2023 08:57-0500 Diastolic blood pressure 58 mm[Hg] Dr. Moni Velásquez Work Phone: [facility] 04-03-2023 08:57-0500 Heart rate 66 /min Dr. Moni Velásquez Work Phone: [facility] 04-03-2023 08:57-0500 Respiratory rate 18 /min Dr. Moni Velásquez Work Phone: [facility] 04-03-2023 08:57-0500 Systolic blood pressure 104 mm[Hg] Dr. Moni Velásquez Work Phone: [facility] 02-19-2023 10:52-0500 Body height 162.[address] Moni Velásquez Work Phone: [facility] 02-19-2023 10:52-0500 Body mass index (BMI) [Ratio] 47.7 kg/m2 Dr. Moni Velásquez Work Phone: [facility] 02-19-2023 10:52-0500 Body temperature 98.6 [degF] Dr. Moni Velásquez Work Phone: [facility] 02-19-2023 10:52-0500 Body weight 126.[address] Moni Velásquez Work Phone: [facility] 02-19-2023 10:52-0500 Diastolic blood pressure 76 mm[Hg] Dr. Moni Velásquez Work Phone: [facility] 02-19-2023 10:52-0500 Heart rate 80 /min Dr. Moni Velásquez Work Phone: [facility] 02-19-2023 10:52-0500 Respiratory rate 18 /min Dr. Moni Velásquez Work Phone: [facility] 02-19-2023 10:52-0500 SaO2% (BldA) [Mass fraction] 96 % Dr. Moni Velásquez Work Phone: [facility] 02-19-2023 10:52-0500 Systolic blood pressure 118 mm[Hg] Dr. Moni Velásquez Work Phone: [facility] 11-20-2022 09:25-0400 Body height 162.[address] Moni Velásquez Work Phone: [facility] 11-20-2022 09:25-0400 Body mass index (BMI) [Ratio] 48 kg/m2 Dr. Moni Velásquez Work Phone: [facility] 11-20-2022 09:25-0400 Body weight [address] Moni Velásquez Work Phone: [facility] 11-20-2022 09:25-0400 Diastolic blood pressure 74 mm[Hg] Dr. Moni Velásquez Work Phone: [facility] 11-20-2022 09:25-0400 Heart rate 66 /min Dr. Moni Velásquez Work Phone: [facility] 11-20-2022 09:25-0400 Respiratory rate 20 /min Dr. Moni Velásquez Work Phone: [facility] 11-20-2022 09:25-0400 SaO2% (BldA) [Mass fraction] 94 % Dr. Moni Velásquez Work Phone: [facility] 11-20-2022 09:25-0400 Systolic blood pressure 118 mm[Hg] Dr. Moni Velásquez Work Phone: [facility] 11-13-2022 14:32-0400 Body mass index (BMI) [Ratio] 48.7 kg/m2 Dr. Moni Velásquez Work Phone: [facility] 11-13-2022 14:32-0400 Body temperature 97.7 [degF] Dr. Moni Velásquez Work Phone: [facility] 11-13-2022 14:32-0400 Body weight 128.[address] Moni Velásquez Work Phone: [facility] 11-13-2022 14:32-0400 Diastolic blood pressure 82 mm[Hg] Dr. Moni Velásquez Work Phone: [facility] 11-13-2022 14:32-0400 Heart rate 64 /min Dr. Moni Velásquez Work Phone: [facility] 11-13-2022 14:32-0400 Respiratory rate 18 /min Dr. Moni Velásquez Work Phone: [facility] 11-13-2022 14:32-0400 SaO2% (BldA) [Mass fraction] 96 % Dr. Moni Velásquez Work Phone: [facility] 11-13-2022 14:32-0400 Systolic blood pressure 134 mm[Hg] Dr. Moni Velásquez Work Phone: [facility] 09-18-2022 10:28-0400 Body mass index (BMI) [Ratio] 48.9 kg/m2 Dr. Moni Velásquez Work Phone: [facility] 09-18-2022 10:28-0400 Body weight 129.[address] Moni Velásquez Work Phone: [facility] 09-18-2022 10:28-0400 Diastolic blood pressure 81 mm[Hg] Dr. Moni Velásquez Work Phone: [facility] 09-18-2022 10:28-0400 Heart rate 62 /min Dr. Moni Velásquez Work Phone: [facility] 09-18-2022 10:28-0400 Respiratory rate 20 /min Dr. Moni Velásquez Work Phone: [facility] 09-18-2022 10:28-0400 SaO2% (BldA) [Mass fraction] 96 % Dr. Moni Velásquez Work Phone: [facility] 09-18-2022 10:28-0400 Systolic blood pressure 132 mm[Hg] Dr. Moni Velásquez Work Phone: [facility] 08-07-2022 09:02-0400 Diastolic blood pressure 82 mm[Hg] Dr. Moni Velásquez Work Phone: [facility] 08-07-2022 09:02-0400 Heart rate 62 /min Dr. Moni Velásquez Work Phone: [facility] 08-07-2022 09:02-0400 Respiratory rate 20 /min Dr. Moni Velásquez Work Phone: [facility] 08-07-2022 09:02-0400 Systolic blood pressure 127 mm[Hg] Dr. Moni Velásquez Work Phone: [facility] 07-31-2022 09:18-0400 Diastolic blood pressure 96 mm[Hg] Dr. Moni Velásquez Work Phone: [facility] 07-31-2022 09:18-0400 Heart rate 65 /min Dr. Moni Velásquez Work Phone: [facility] 07-31-2022 09:18-0400 Respiratory rate 20 /min Dr. Moni Velásquez Work Phone: [facility] 07-31-2022 09:18-0400 Systolic blood pressure 158 mm[Hg] Dr. Moni Velásquez Work Phone: [facility] 07-18-2022 14:18-0400 Diastolic blood pressure 91 mm[Hg] Dr. Moni Velásquez Work Phone: [facility] 07-18-2022 14:18-0400 Heart rate 60 /min Dr. Moni Velásquez Work Phone: [facility] 07-18-2022 14:18-0400 Respiratory rate 16 /min Dr. Moni Velásquez Work Phone: [facility] 07-18-2022 14:18-0400 Systolic blood pressure 153 mm[Hg] Dr. Moni Velásquez Work Phone: [facility] 07-04-2022 08:25-0400 Body height 162.[address] Moni Velásquez Work Phone: [facility] 07-04-2022 08:25-0400 Body mass index (BMI) [Ratio] 49.8 kg/m2 Dr. Moni Velásquez Work Phone: [facility] 07-04-2022 08:25-0400 Body weight 131.[address] Moni Velásquez Work Phone: [facility] 07-04-2022 08:25-0400 Diastolic blood pressure 85 mm[Hg] Dr. Moni Velásquez Work Phone: [facility] 07-04-2022 08:25-0400 Heart rate 62 /min Dr. Moni Velásquez Work Phone: [facility] 07-04-2022 08:25-0400 Respiratory rate 22 /min Dr. Moni Velásquez Work Phone: [facility] 07-04-2022 08:25-0400 SaO2% (BldA) [Mass fraction] 93 % Dr. Moni Velásquez Work Phone: [facility] 07-04-2022 08:25-0400 Systolic blood pressure 147 mm[Hg] Dr. Moni Velásquez Work Phone: [facility] 12-27-2021 08:23-0400 Body height 162.[address] Moni Velásquez Work Phone: [facility] Work Phone: 12-27-2021 08:23-0400 Diastolic blood pressure 90 mm[Hg] Dr. Moni Velásquez Work Phone: [facility] Work Phone: 12-27-2021 08:23-0400 Systolic blood pressure 128 mm[Hg] Dr. Moni Velásquez Work Phone: [facility] Work Phone: 12-27-2021 08:23-0400 Body mass index (BMI) [Ratio] 49.1 kg/m2 Dr. Moni Velásquez Work Phone: [facility] Work Phone: 12-27-2021 08:23-0400 Body weight 129.[address] Moni Velásquez Work Phone: [facility] Work Phone: 12-27-2021 08:23-0400 Heart rate 59 /min Dr. Moni Velásquez Work Phone: [facility] Work Phone: 12-27-2021 08:23-0400 Respiratory rate 20 /min Dr. Moni Velásquez Work Phone: [facility] Work Phone: 12-27-2021 08:23-0400 SaO2% (BldA) [Mass fraction] 93 % Dr. Moni Velásquez Work Phone: [facility] Work Phone: 06-22-2021 10:39-0400 Body height 162.[address] Moni Velásquez Work Phone: [facility] Work Phone: 06-22-2021 10:39-0400 Body weight 131.[address] Moni Velásquez Work Phone: [facility] Work Phone: 06-22-2021 10:39-0400 Diastolic blood pressure 72 mm[Hg] Dr. Moni Velásquez Work Phone: [facility] Work Phone: 06-22-2021 10:39-0400 Heart rate 56 /min Dr. Moni Velásquez Work Phone: [facility] Work Phone: 06-22-2021 10:39-0400 Respiratory rate 18 /min Dr. Moni Velásquez Work Phone: [facility] Work Phone: 06-22-2021 10:39-0400 Systolic blood pressure 124 mm[Hg] Dr. Moni Velásquez Work Phone: [facility] Work Phone: 06-22-2021 10:39-0400 Body height 162.[address] Moni Velásquez Work Phone: [facility] Work Phone: 06-22-2021 10:39-0400 Body weight 131.[address] Moni Velásquez Work Phone: [facility] Work Phone: 06-22-2021 10:39-0400 Diastolic blood pressure 72 mm[Hg] Dr. Moni Velásquez Work Phone: [facility] Work Phone: 06-22-2021 10:39-0400 Heart rate 56 /min Dr. Moni Velásquez Work Phone: [facility] Work Phone: 06-22-2021 10:39-0400 Respiratory rate 18 /min Dr. Moni Velásquez Work Phone: [facility] Work Phone: 06-22-2021 10:39-0400 Systolic blood pressure 124 mm[Hg] Dr. Moni Velásquez Work Phone: [facility] Work Phone: 04-11-2021 12:15-0500 Body mass index (BMI) [Ratio] 50.1 kg/m2 Dr. Moni Velásquez Work Phone: [facility] Work Phone: 04-11-2021 12:15-0500 Body weight 132.[address] Moni Velásquez Work Phone: [facility] Work Phone: 03-29-2021 07:39-0500 Body mass index (BMI) [Ratio] 49.6 kg/m2 Dr. Moni Velásquez Work Phone: [facility] Work Phone: 03-29-2021 07:39-0500 Body temperature 98.9 [degF] Dr. Moni Velásquez Work Phone: [facility] Work Phone: 03-29-2021 07:39-0500 Body weight 131.[address] Moni Velásquez Work Phone: [facility] Work Phone: 03-29-2021 07:39-0500 Diastolic blood pressure 84 mm[Hg] Dr. Moni Velásquez Work Phone: [facility] Work Phone: 03-29-2021 07:39-0500 Heart rate 60 /min Dr. Moni Velásquez Work Phone: [facility] Work Phone: 03-29-2021 07:39-0500 Respiratory rate 14 /min Dr. Moni Velásquez Work Phone: [facility] Work Phone: 03-29-2021 07:39-0500 SaO2% (BldA) [Mass fraction] 97 % Dr. Moni Velásquez Work Phone: [facility] Work Phone: 03-29-2021 07:39-0500 Systolic blood pressure 132 mm[Hg] Dr. Moni Velásquez Work Phone: [facility] Work Phone: 05-01-2020 14:28-0500 Body mass index (BMI) [Ratio] 49.9 kg/m2 Dr. Moni Velásquez Work Phone: [facility] Work Phone: 05-01-2020 13:28-0500 Body mass index (BMI) [Ratio] 49.9 kg/m2 Dr. Moni Velásquez Work Phone: [facility] Work Phone: Encounters Encounter Date Encounter Type Care Provider Facility Start: 12-22-2024 End: 12-22-[address] Moni Velásquez MD -[facility] Work Phone: Start: 12-22-2024 End: 12-22-[address] Moni Velásquez MD Work Phone: -[facility] Start: 10-19-2024 End: 10-19-[address] Aniyah Sharp MD -[facility] Work Phone: Start: 10-19-2024 End: 10-19-[address] Moni Velásquez MD Work Phone: -[facility] Start: 10-15-2024 End: 10-15-[address] Moni Velásquez MD Work Phone: -[facility] [place] Start: 10-15-2024 End: 10-15-[address] Andreina Cruz MD -[facility] Work Phone: Start: 10-15-2024 End: 10-15-2024 ambulatory Moni Velásquez Facility:[facility] Start: 09-23-2024 End: 09-23-[address] Moni Velásquez MD -[facility] Work Phone: Start: 09-23-2024 End: 09-23-[address] Moni Velásquez MD [facility] Start: 09-23-2024 End: 09-23-[address] Moni Velásquez MD Work Phone: -[facility] Start: 09-14-2024 Non-patient / Non-visit Dr. Aniyah Sharp MD -[facility] Work Phone: Start: 07-16-2024 End: 07-16-[address] Moni Velásquez MD Work Phone: [facility] Work Phone: Start: 07-16-2024 End: 07-16-[address] Andreina Cruz MD -[facility] [place] Work Phone: Start: 07-16-2024 End: 07-16-2024 ambulatory [facility] Facility:[facility] Start: 06-10-2024 End: 06-10-[address] Moni Velásquez MD Work Phone: [facility] Work Phone: Start: 06-10-2024 End: 06-10-[address] Moni Velásquez MD -Outpatient Breast Imaging Work Phone: Start: 06-10-2024 End: 06-10-2024 ambulatory [facility] Facility:[facility] Start: 05-19-2024 End: 05-19-[address] Moni Velásquez MD -[facility] Work Phone: Start: 05-19-2024 End: 05-19-2024 ambulatory [facility] Facility:[facility] Start: 04-26-2024 End: 04-26-[address] Andreina Cruz MD -Laboratory, [place] Work Phone: Start: 04-26-2024 End: 04-26-2024 ambulatory Moni Velásquez Facility:[facility] Start: 04-23-2024 End: 04-23-[address] [facility] Start: 04-23-2024 End: 04-23-2024 ambulatory alanamohawkkillian Velásquez Facility:[facility] Start: 02-18-2024 End: 02-18-[address] Moni Velásquez MD -[facility] Work Phone: Start: 02-18-2024 End: 02-18-2024 ambulatory Moni Velásquez Facility:[facility] Start: 01-30-2024 End: 01-30-2024 ambulatory alanamohawkkillian Velásquez Facility:[facility] Start: 01-12-2024 End: 01-12-2024 ambulatory [facility] Facility:[facility] Start: 01-10-2024 End: 01-10-2024 Emergency department patient visit Moni Velásquez Facility:[facility] Start: 05-28-2023 End: 05-28-2023 ambulatory MONI VELÁSQUEZ Facility:[facility] Start: 05-28-2023 End: 05-28-2023 Patient encounter procedure Kiran Gifford MD Work Phone: Ophthalmology Comment on above: Status post corneal transplant (Primary Dx); Corneal scar, right eye; Pseudophakia Start: 05-16-2023 End: 05-16-[address] Moni Velásquez Work Phone: [facility] Work Phone: Start: 05-16-2023 End: 05-16-[address] Moni Velásquez Work Phone: [facility]-Laboratory, [place] Work Phone: Start: 05-12-2023 End: 05-12-[address] Moni Velásquez Work Phone: [facility] Work Phone: Start: 05-12-2023 End: 05-12-[address] Moni Velásquez Work Phone: [facility]-Laboratory, Spec[facility] Work Phone: Start: 05-09-2023 End: 05-09-[address] Moni Velásquez Work Phone: [facility] Work Phone: Start: 05-09-2023 End: 05-09-[address] Moni Velásquez Work Phone: [facility] Work Phone: Start: 05-08-2023 End: 05-08-[address] Moni Velásquez Work Phone: [facility] Work Phone: Start: 05-08-2023 End: 05-08-[address] Moni Velásquez Work Phone: [facility] Internal Medicine Work Phone: Start: 05-02-2023 Non-patient / Non-visit Dr. Moni Velásquez Work Phone: [facility] Start: 05-02-2023 End: 05-02-[address] Moni Velásquez Work Phone: [facility] Work Phone: Start: 05-02-2023 End: 05-02-[address] Moni Velásquez Work Phone: [facility]-Cardiovascular Services Work Phone: Start: 05-01-2023 End: 05-01-[address] Moni Velásquez Work Phone: [facility] Internal Medicine Work Phone: Start: 04-30-2023 End: 04-30-[address] Moni Velásquez Work Phone: [facility] Work Phone: Start: 04-30-2023 End: 04-30-[address] Moni Velásquez Work Phone: [facility]-Laboratory Work Phone: Start: 04-25-2023 End: 04-25-2023 ambulatory MONI VELÁSQUEZ Facility:[facility] Start: 04-25-2023 End: 04-25-2023 ambulatory Aric Guerrier MD Work Phone: Hematology/Oncology Comment on above: 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) (Primary Dx) Start: 04-25-2023 End: 04-25-2023 Patient encounter procedure Aric Guerrier MD Work Phone: [facility] Start: 04-17-2023 End: 04-17-[address] Moni Velásquez Work Phone: [facility] Internal Medicine Work Phone: Start: 04-09-2023 Non-patient / Non-visit Dr. Moni Velásquez Work Phone: [facility] Inpatient Physicians Work Phone: Start: 04-08-2023 Non-patient / Non-visit Dr. Moni Velásquez Work Phone: [facility] Inpatient Physicians Work Phone: Start: 04-07-2023 Non-patient / Non-visit Dr. Moni Velásquez Work Phone: [facility] Start: 04-06-2023 Non-patient / Non-visit Dr. Moni Velásquez Work Phone: [facility] Inpatient Physicians Work Phone: Start: 04-06-2023 End: 04-09-2023 Evaluation and management of inpatient Dr. Moni Velásquez Work Phone: [facility]-Progressive Care Unit Work Phone: Start: 04-03-2023 End: 04-03-[address] Moni Velásquez Work Phone: [facility] Work Phone: Start: 04-03-2023 End: 04-03-[address] Moni Velásquez Work Phone: [facility]-Radiology, [facility] Work Phone: Start: 04-02-2023 End: 04-02-2023 ambulatory KIRAN GIFFORD Facility:[facility] Start: 03-12-2023 End: 03-12-2023 ambulatory KIRAN R ИРИНА Facility:[facility] Start: 03-05-2023 End: 03-05-2023 ambulatory KIRAN R ИРИНА Facility:[facility] Start: 03-05-2023 End: 03-05-2023 Patient encounter procedure Kiran Gifford MD Work Phone: Ophthalmology Comment on above: Status post corneal transplant (Primary Dx) Start: 03-01-2023 Patient encounter procedure Kiran Gifford MD Work Phone: [facility] Comment on above: Status post corneal transplant (Primary Dx) Start: 02-19-[address] Moni Velásquez Work Phone: [facility] Start: 02-19-2023 End: 02-19-2023 Emergency department patient visit Dr. Moni Velásquez Work Phone: [facility] Start: 02-19-2023 End: 02-19-2023 Encounter for general adult medical examination without abnormal findings Dr. Moni Velásquez Work Phone: [facility] Start: 02-19-2023 End: 02-19-[address] Moni Velásquez Work Phone: [facility] Internal Medicine Work Phone: Start: 02-17-2023 End: 02-17-[address] Moni Velásquez Work Phone: [facility] Work Phone: Start: 02-17-2023 End: 02-17-[address] Moni Velásquez Work Phone: [facility] Work Phone: Start: 01-29-2023 End: 01-29-2023 ambulatory MONI VELÁSQUEZ Facility:[facility] Start: 01-22-2023 End: 01-22-2023 ambulatory KIRAN GIFFORD Facility:[facility] Start: 01-22-2023 End: 01-22-2023 Patient encounter procedure Kiran Gifford MD Work Phone: Ophthalmology Comment on above: Corneal edema, secon barby, right (Primary Dx); Corneal scar, right eye; Pseudophakia Start: 01-16-2023 Telephone encounter Kiran beth MD Work Phone: [facility] Comment on above: Patient Question Start: 01-01-2023 End: 01-01-2023 ambulatory KIRAN GIFFORD Facility:[facility] Start: 01-01-2023 End: 01-01-2023 Patient encounter procedure Kiran Gifford MD Work Phone: Ophthalmology Comment on above: Corneal edema, secon barby, right (Primary Dx); Corneal scar, right eye; Pseudophakia Start: 12-27-2022 Telephone encounter Kiran beth MD Work Phone: Ophthalmology Start: 12-18-2022 End: 12-18-[address] Moni Velásquez Work Phone: [facility]-Outpatient Breast Imaging Work Phone: Start: 12-11-2022 End: 12-11-2022 ambulatory MONI VELÁSQUEZ Facility:[facility] Start: 12-04-2022 End: 12-04-2022 ambulatory MONI VELÁSQUEZ Facility:[facility] Start: 12-02-2022 Non-patient / Non-visit Dr. Moni Velásquez Work Phone: [facility] Start: 12-02-2022 End: 12-02-[address] Moni Velásquez Work Phone: [facility] Work Phone: Start: 12-02-2022 End: 12-02-[address] Moni Velásquez Work Phone: [facility]-Pulmonary Services/Neurology Work Phone: Start: 11-26-2022 End: 11-26-[address] Moni Velásquez Work Phone: [facility] Work Phone: Start: 11-26-2022 End: 11-26-[address] Moni Velásquez Work Phone: [facility] Work Phone: Start: 11-22-2022 Telephone encounter Kiran beth MD Work Phone: Ophthalmology Comment on above: Appointment Start: 11-20-2022 End: 11-20-[address] Moni Velásquez Work Phone: [facility] Work Phone: Start: 11-13-2022 End: 11-13-[address] Moni Velásquez Work Phone: [facility] Internal Medicine Work Phone: Start: 09-18-2022 End: 09-18-[address] Moni Velásquez Work Phone: [facility] Work Phone: Start: 08-29-2022 End: 08-29-[address] Moni Velásquez Work Phone: [facility] Work Phone: Start: 08-29-2022 End: 08-29-[address] Moni Velásquez Work Phone: [facility] Start: 08-07-2022 End: 08-07-[address] Moni Velásquez Work Phone: [facility] Work Phone: Start: 08-07-2022 End: 08-07-[address] Moni Velásquez Work Phone: [facility] Start: 07-31-2022 End: 07-31-[address] Moni Velásquez Work Phone: [facility] Start: 07-18-2022 End: 07-18-[address] Moni Velásquez Work Phone: [facility] Start: 07-04-2022 End: 07-04-[address] Moni Velásquez Work Phone: [facility] Start: 06-05-2022 End: 06-05-2022 ambulatory [facility] Work Phone: Start: 06-05-2022 End: 06-05-2022 Patient encounter procedure [facility] Start: 06-03-2022 End: 06-03-2022 ambulatory [facility] Work Phone: Start: 06-03-2022 End: 06-03-2022 Patient encounter procedure [facility] Start: 03-15-2022 End: 03-15-[address] Moni Velásquez Work Phone: [facility] Work Phone: Start: 03-15-2022 End: 03-15-[address] Moni Velásquez Work Phone: [facility] Start: 03-12-2022 End: 03-12-[address] Moni Velásquez Work Phone: [facility] Work Phone: Start: 03-12-2022 End: 03-12-[address] Moni Velásquez Work Phone: [facility] Start: 2022 End: [address] Moni Velásquez Work Phone: [facility] Work Phone: Start: 2022 End: [address] Moni Velásquez Work Phone: [facility] Start: 12-27-2021 End: 12-27-[address] Moni Velásquez Work Phone: [facility] Start: 11-30-2021 End: 11-30-2021 ambulatory [facility] Work Phone: Start: 11-30-2021 End: 11-30-2021 Patient encounter procedure [facility] Start: 10-02-2021 End: 10-02-[address] Moni Velásquez Work Phone: [facility] Start: 10-01-2021 End: 10-01-[address] Moni Velásquez Work Phone: [facility] Start: 07-11-2021 End: 07-11-[address] Moni Velásquez Work Phone: [facility] Start: 07-04-2021 End: 07-04-[address] Moni Velásquez Work Phone: [facility]-Pulmonary Services/Neurology Start: 07-04-2021 Non-patient / Non-visit Dr. Moni Valenzulea Phone: [facility] Start: 07-02-2021 End: 07-02-[address] Moni Velásquez Work Phone: [facility] Rad[facility] Start: 06-27-2021 End: 06-27-[address] Moni Velásquez Work Phone: [facility] Start: 06-22-2021 End: 06-22-[address] Moni Valenzuela Phone: [facility] Start: 06-20-2021 End: 06-20-[address] Moni Velásquez Work Phone: [facility]-Outpatient Bone Densitometry Start: 04-11-2021 End: 04-11-[address] Moni Velásquez Work Phone: [facility] Orthopaedic Specia Start: 03-29-2021 End: 03-29-2021 Encounter for general adult medical examination without abnormal findings Dr. Moni Valenzuela Phone: [facility] Internal Medicine Start: 03-29-2021 End: 03-29-[address] Moni Velásquez Work Phone: [facility] Internal Medicine Start: 01-31-[address] Moni Velásquez Work Phone: [facility] Start: 03-14-2017 Ambulatory Lucy L. Santos Facilit y:[facility] Start: 03-14-2017 Ambulatory Lucy L. Santos Facilit y:[facility] Start: 11-20-2016 Ambulatory Lucy L. Santos Facilit y:[facility] Start: 09-19-2016 Ambulatory Lucy L. Santos Facilit y:[facility] Procedures Date Procedure Procedure Detail Performing [...] Detail Author Start: 10-09-2027 Urine microalbumin profile [facility] Start: 12-22-2024 [facility] Start: 04-25-2024 BP Controlled (<130/80) BP Controlled (<130/80) [facility] in Start: 05-12-2023 Catecholamines, fractionation measurement, urine [facility] Start: 04-17-2023 Patient referral [facility] Work Phone: Start: 04-10-2023 Blood chemistry [facility] Start: 04-09-2023 Patient discharge [facility] Start: 04-09-2023 [facility] Start: 04-09-2023 Blood chemistry [facility] Start: 04-08-2023 [facility] Start: 04-08-2023 Incentive spirometry [facility] Start: 04-06-2023 Bacteria identified in Blood by Culture Blood Culture [facility] Start: 04-06-2023 Oxygen therapy [facility] Start: 04-06-2023 Following clinical pathway protocol [facility] Start: 04-06-2023 Ambulation without limitation [facility] Start: 04-06-2023 Assessment of risk of venous thromboembolism [facility] Start: 04-06-2023 Insertion of catheter into peripheral vein [facility] Start: 04-06-2023 Measuring intake and output [facility] Start: 04-06-2023 Providing care according to standard [facility] Start: 04-06-2023 [facility] Start: 04-06-2023 Hospital admission, emergency, from emergency room, medical nature [facility] Start: 04-06-2023 Verification routine [facility] Start: 04-06-2023 Admission procedure [facility] Start: 04-06-2023 End: 04-06-2023 [facility] Start: 04-06-2023 Blood culture [facility] Start: 03-17-2023 Advance Directive Discussion Advance Directive Discussion [facility] Start: 03-17-2023 Depression Assessment Depression Assessment [facility] Start: 11-15-2022 Covid-19 Vaccine () Covid-19 Vaccine () [facility] Start: 11-15-2022 Influenza vaccination [facility] Start: 10-08-2022 Lipid 1996 panel - Serum or Plasma Lipid Screening [facility] Start: 10-08-2022 Lipid panel Lipid Screening [facility] Start: 10-08-2022 LIPID SCREEN LIPID SCREEN [facility] Start: 03-17-2022 ADVANCE DIRECTIVE DISCUSSION ADVANCE DIRECTIVE DISCUSSION [facility] Start: 03-17-2022 DEPRESSION ASSESSMENT DEPRESSION ASSESSMENT [facility] Start: 01-31-2022 Pneumococcal Vaccine: 65+ (2 - PPSV23 or PCV20) Pneumococcal Vaccine: 65+ (2 - PPSV23 or PCV20) [facility] Start: 03-31-2021 DIABETES SCREEN DIABETES SCREEN [facility] Start: 03-31-2021 Diabetes Screening Diabetes Screening [facility] Start: 03-29-2021 Patient referral [facility] Work Phone: Start: 03-28-2021 Pneumococcal Vaccine: 65+ (2 of 2 - PPSV23 or PCV20) Pneumococcal Vaccine: 65+ (2 of 2 - PPSV23 or PCV20) [facility] Start: 05-16-2020 Colonoscopy Colonoscopy [facility] Start: 05-16-2020 Colorectal Cancer Screening Colorectal Cancer Screening [facility] Start: 05-16-2020 Screening for malignant neoplasm of colon [facility] Start: 01-29-2020 BONE DENSITY BONE DENSITY [facility] Start: 01-29-2020 Bone Density Screening Bone Density Screening [facility] Start: 01-29-2020 Pneumococcal Vaccine: 65+ (1 - PCV) Pneumococcal Vaccine: 65+ (1 - PCV) [facility] Start: 01-29-2020 PNEUMOCOCCAL: 65+ (1 - PCV) PNEUMOCOCCAL: 65+ (1 - PCV) [facility] Start: 01-29-2020 Screening for osteoporosis Bone Density Screening [facility] Start: 10-06-2019 Annual PCP Team Chronic Disease Visit Annual PCP Team Chronic Disease Visit [facility] Start: 10-08-2018 BP Controlled (<130/80) BP Controlled (<130/80) [facility] Start: 06-26-2018 Mammography [facility] Start: 06-26-2018 Screening for malignant neoplasm of breast Mammogram Screening [facility] Start: 2015 RSV Vaccine (1 - 1-dose 60+ series) RSV Vaccine (1 - 1-dose 60+ series) [facility] Start: 2005 SHINGRIX VACCINE (1 of 2) SHINGRIX VACCINE (1 of 2) [facility] Start: 01-29-2000 COLOGUARD (FIT-DNA) COLOGUARD (FIT-DNA) [facility] Start: 01-29-2000 Colonoscopy COLONOSCOPY [facility] Start: 01-29-2000 COLORECTAL CANCER SCREENING COLORECTAL CANCER SCREENING [facility] Start: 01-29-[address] COLONOGRAPHY [facility] Start: 01-29-2000 FECAL OCCULT BLOOD FECAL OCCULT BLOOD [facility] Start: 01-29-2000 Screening for malignant neoplasm of colon [facility] Start: 01-29-2000 SIGMOIDOSCOPY SIGMOIDOSCOPY [facility] Start: 1974 Shingrix Vaccine (1 of 2) Shingrix Vaccine (1 of 2) [facility] Start: 1955 COVID-19 VACCINE (#1) COVID-19 VACCINE (#1) [facility] 24 hour urine dopami ne output measurement [facility] Anion gap measurement [facility] Anion gap measurement [facility] BUN/Creatinine ratio [facility] BUN/Creatinine ratio [facility] Calcium [Mass/volume ] in Serum or Plasma [facility] Calcium [Mass/volume ] in Serum or Plasma [facility] Carbon dioxide, tota l [Moles/volume] in Serum or Plasma [facility] Carbon dioxide, tota l [Moles/volume] in Serum or Plasma [facility] Catecholamines, fractionation measurement, urine [facility] Chloride [Moles/volu me] in Serum or Plasma [facility] Chloride [Moles/volu me] in Serum or Plasma [facility] Cortisol Free [Mass/volume] in 24 hour Urine [facility] Cortisol Free [Mass/volume] in Urine [facility] Creatinine [Moles/vo lume] in Serum or Plasma [facility] Creatinine [Moles/vo lume] in Serum or Plasma [facility] CT Abdomen WO and W contrast IV [facility] DOPamine [Mass/volum e] in Urine [facility] EPINEPHrine [Mass/ti me] in 24 hour Urine [facility] EPINEPHrine [Mass/vo lume] in Urine [facility] Erythrocyte mean corpuscular volume determination [facility] Erythrocyte mean corpuscular volume determination [facility] Glucose [Mass/volume ] in Serum or Plasma [facility] Glucose [Mass/volume ] in Serum or Plasma [facility] Hematocrit [Volume Fraction] of Blood [facility] Hematocrit [Volume Fraction] of Blood [facility] Hemoglobin [Mass/vol ume] in Blood [facility] Hemoglobin [Mass/vol ume] in Blood [facility] Leukocytes [#/volume ] in Blood [facility] Leukocytes [#/volume ] in Blood [facility] Lipid 1996 panel - S michael or Plasma [facility] Mean corpuscular hemoglobin concentration determination [facility] Mean corpuscular hemoglobin concentration determination [facility] Mean corpuscular hemoglobin determination [facility] Mean corpuscular hemoglobin determination [facility] Measurement of renal function [facility] Measurement of renal function [facility] MG Breast - bilatera l Screening [facility] Neutrophil count [facility] Neutrophil count [facility] Neutrophil percent differential count [facility] Neutrophil percent differential count [facility] NM Heart Views W str ess and W radionuclide IV [facility] Norepinephrine [Mass/volume] in Urine [facility] Norepinephrine measurement [facility] Patient referral [facility] Work Phone: Platelets [#/volume] in Blood [facility] Platelets [#/volume] in Blood [facility] Potassium [Moles/vol ume] in Serum or Plasma [facility] Potassium [Moles/vol ume] in Serum or Plasma [facility] Red blood cell count [facility] Red blood cell count [facility] Red cell distributio n width determination [facility] Red cell distributio n width determination [facility] Sodium [Moles/volume ] in Serum or Plasma [facility] Sodium [Moles/volume ] in Serum or Plasma [facility] Urea nitrogen [Mass/volume] in Serum or Plasma [facility] Urea nitrogen [Mass/volume] in Serum or Plasma [facility] Immunizations Immunization Date Immunization Notes Care Provider [facility] 02-19-2024 Covid (Spikevax) Dr. Lowell Velásquez MD Work Phone: [facility] 02-18-2024 Seasonal trivalent influenza vaccine, adjuvanted, preservative free Dr. Moni Velásquez MD Work Phone: [facility] 02-19-2023 influenza, injectabl e, quadrivalent, preservative free Dr. Moni Velásquez Work Phone: [facility] 03-19-2021 Covid (Pfizer) Dr. Moni Velásquez MD Work Phone: [facility] 01-31-2021 pneumococcal conjuga te vaccine, [address] Moni Velásquez Work Phone: [facility] 01-31-2021 pneumococcal vaccine , unspecified formulation Dr. Moni Velásquez Work Phone: [facility] Work Phone: 06-08-2020 Covid (Pfizer) Dr. Moni Velásquez Work Phone: [facility] 05-18-2020 Covid (Pfizer) Dr. Moni Velásquez Work Phone: [facility] 04-07-2018 influenza virus vaccine, unspecified formulation Kiran Gifford MD Work Phone: [facility] 05-17-2013 tetanus toxoid, redu sriram diphtheria toxoid, and acellular pertussis vaccine, adsorbed Dr. Moni Velásquez MD Work Phone: [facility] 05-13-2002 hepatitis B vaccine, adult dosage Dr. Moni Velásquez MD Work Phone: [facility] 12-10-2001 hepatitis B vaccine, adult dosage Dr. Moni Velásquez MD Work Phone: [facility] 11-05-2001 hepatitis B vaccine, adult dosage Dr. Moni Velásquez MD Work Phone: [facility] 08-04-2001 hepatitis A vaccine, pediatric/adolescent dosage, [address] Moni Velásquez MD Work Phone: [facility] 11-26-2000 hepatitis A vaccine, pediatric/adolescent dosage, [address] Moni Velásquez MD Work Phone: [facility] Payers Date Payer Category Payer Self-pay [id number] 2020 Medicare [id number] 2020 Medicare HUMANA MEDICARE HUMANA MEDICARE PPO [id number] 2020-Present [phone] [address] [address] [place] [address] PPO [id number] 2015 Unknown [id number] Medicare [id number] Unknown [id number] Unknown [id number] Unknown [id number] Unknown [id number] Unknown [id number] Unknown [id number] [id number] Unknown [id number] [id number] Unknown [id number] [id number] Unknown [id number] [id number] Unknown [id number] [id number] Unknown [id number] [id number] Unknown [id number] [id number] Unknown [id number] [id number] Unknown [id number] Social History Date Type Detail Facility Start: 06-22-2021 End: 05-08-2023 Tobacco smoking status NHIS Unknown if ever smoked [facility] Start: 12-28-2019 None [facility] Start: 12-28-2019 Spouse/ Signif icant Other [facility] Start: 05-12-2019 Non-smoker [facility] Start: 1955 Sex Assigned At Female W [facility] Start: 06-06-2017 End: 10-12-2024 Tobacco smoking status NHIS Never smoked tobacco [facility] Start: 06-06-2017 End: 12-04-2022 Tobacco use and exposure Smokeless tobacco non-user [facility] Start: 10-05-2018 End: 05-28-2023 Alcohol intake Current non-drinker of alcohol (finding) [facility] Start: 10-05-2018 End: 01-29-2023 History of Social function [facility] Start: 10-05-2018 End: 01-29-2023 Tobacco use panel [facility] Adult Depression Screening Assessment 0 [facility] Start: 1955 Sex Assigned At Not on file [facility] Start: 06-15-2024 Sex Female (finding) [facility] Medical Equipment Procedure Code Equipment Code Equipment Origin al Text Equipment Identifier Dates Cornea Tissue Pre-Loaded [id number] - [id number] Start: 02-28-2023 Gas Ispan [employer]ellation Intraocular Vision System [id number] [id number] - [id number] Start: 02-28-2023 Goals Date Patient Goal Desired Activity /State Functional Status Date Assessment Result Facility 04-09-2023 Functional status Chair [facility] Work Phone: 04-08-2023 Functional status Chair [facility] Work Phone: Mental Status Date Assessment Result Facility 04-09-2023 Cognitive function Voice/Name [facility] Work Phone: 04-08-2023 Cognitive function Voice/Name [facility] Work Phone: Clinical Notes 11-22-2022 to 10-19-2024 Note Date & Type Note Facility 10-19-2024 Progress note [facility] 10-19-2024 Progress note Note Date/Time October 19, 2024 11:04am [facility] [address], [address] [place] [address] OFFICE VISIT Date of Service: 10/19/24 MR#: [id number] Acct: [id number] Name: ANH EWING Rep #: [id number] : 1955 Provider: Dr. Lito Sharp MD Age/Sex: 69/F Location: [facility] Status: Signed Intake Vital Signs 09/23/24 13:03 10/19/24 10:39 Height 5 ft 4 in 5 ft 4 in Weight: 280 lb 280 lb BMI 48.0 48.0 BP 132/68 H 125/77 H Blood Pressure Location Lt brachial Lt radial Position Sitting Sitting Respiration 18 Pulse 66 54 L Pulse Source Monitor Temp 97.8 F Temp Source Temporal Pulse Oximetry (%) 93 Oxygen Delivery Method room air Intake Visit Reasons: 12MO MED F/U Chief Complaint: 12 month gemtesa medication follow up Education Program Specialist Required: No Accompanied by: Self Is patient in pain?: Yes (joint pain) Pain scale (1-10): 2 Allergies Sulfa (Sulfonamide Antibiotics) Allergy (Unknown, Verified 10/19/24 10:39) Unknown hydroxychloroquine Allergy (Verified 10/19/24 10:39) Hives tramadol Allergy (Verified 10/19/24 10:39) Itching amlodipine Adverse Reaction (Intermediate, Verified 10/19/24 10:39) Foot and ankle swelling Medications ?Medication ?Instructions ?Recorded ?Confirmed ?Type betamethasone dipropionate 0.05 % 1 applic topical THAO LY PRN skin 04/12/19 10/19/24 History topical cream Handicap Placard #1 ea 12/20/19 09/23/24 Rx Handicap Placard #1 ea 11/21/22 09/23/24 Rx leflunomide 20 mg tablet 20 mg PO DAILY 04/03/2308/08 History blood pressure monitor #1 ea 04/17/23 09/23/24 Rx prednisolone acetate 1 % eye 1 drp ophthalmic (eye) ON CE 06/05/23 10/19/24 History drops,suspension fenofibrate 54 mg tablet 54 mg PO DAILY #90 tabs 10/1610/19/24 Rx cholecalciferol (vitamin D3) 25 25 mcg PO QDAY 4 10/19/24 History mcg (1,000 unit) capsule hydralazine 25 mg tablet 25 mg PO BID #180 tabs 12/1610/19/24 Rx hydrochlorothiazide 25 mg tablet 25 mg PO DAILY #90 TA BLETS 12/17/23 10/19/24 Rx valsartan 320 mg tablet 320 mg PO DAILY #90 tabs 05/1010/19/24 Rx atenolol 50 mg tablet 50 mg PO DAILY #90 TABLETS 1 10/19/24 Rx fluticasone fur. 100 mcg-umeclid 1 inh inhalation Q24H #60 ea 02/18/24 10/19/24 Rx 62.5 mcg-vilant 25 mcg inhalat.powder (Trelegy Ellipta) montelukast 10 mg tablet 10 mg PO QPM #90 tabs 10/19/24 Rx (Singulair) gabapentin 100 mg capsule 100 mg PO QDAY 05/19/2408/08 History apixaban 5 mg tablet 5 mg PO BID 90 days #180 tab s 08/20/24 10/19/24 Rx acetaminophen 500 mg capsule 1,000 mg (2 x 500 mg) PO Q8H PRN 09/29/24 10/19/24 Rx PRN fever or pain #180 caps Gemtesa 75 mg tablet (vibegron) 75 mg PO DAILY 90 days #90 tabs 10/19/24 10/19/24 Rx Have you fallen in the past year?: No [facility] Medical History (Updated 10/19/24 @ 10:[address] Aniyah Sharp MD) Mixed incontinence Osteoarthritis Pruritus Rheumatoid arthritis Upper back pain [...] nodule Essential hypertension Mixed hyperlipidemia Surgical History H/O dilation and curettage History of cornea transplant History of cataract surgery uterine ablation History of tubal ligation History of cholecystectomy Family History Brother Sudden cardiac , Onset Age: 50 Mother Heart disease Father Heart disease Social History Smoking Status: Never smoker alcohol intake: never substance use type: does not use caffeine: Yes Type: coffee Number of servings: 2 what type of physical activity do you participate in: none do you feel safe at home: Yes HPI HPI Urology Chief Complaint: 12 month gemtesa medication follow up Details: ANH EWING, is a 69 F. She is here for medication follow up. She has been taking Gemtesa 75mg daily. She is not having side effects from the medication. She is now voiding about 6-8 times during the day, and 1 times at night. There is occasional drips of incontinence during the middle of the night on the way tot bathroom. She is not limiting fluid before bed. She would like to continue with this medication. She has not had any urinary tract infections since the last visit. She has not had any blood in the urine since the last visit. She has no new urologic concerns to discuss today. ROS Const Constitutional: No chills, fatigue, fever(s), headache(s), night sweats, weakness, weight change, abnormal sleep pattern or change in appetite Eyes Eyes: No change in vision ENT ENT: No headache(s) or dry mouth Resp Respiratory: Positive for shortness of breath (chronic, PE in March 2023.); No cough, chest congestion or wheezing Cardio Cardiology: Positive for other (No chest pain.); No shortness of breath, irregular heart rhythm or lightheadedness Gastro GI: Positive for other (No nausea.); No abdominal pain, change in bowel habits, constipation, diarrhea or vomiting Musc Musculoskeletal: No abnormal gait Skin Skin: No yellowing of the eye, lesions, itchy eyes, rash or skin ulcer Neuro Neurology: No abnormal gait, confusion, dizziness, weakness, headache(s) or memory loss Psych Psychiatric: No abnormal sleep pattern, No change in appetite, No confusion and No memory loss Endo Endocrine: No fatigue, increased thirst/drinking or weight change Aller/Imm Allergy/Immunologic: No itchy eyes or wheezing Karl/Lymp Hematologic/Lymphatic: No easy bleeding, easy bruising or enlarged lymph nodes Exam Const General: cooperative, healthy appearing, comfortable and no acute distress HENMT Head: normocephalic and atraumatic Ears: hearing grossly normal bilaterally and external ears normal Nose: external nose normal Eyes General: appearance normal, both eyes and all related structures Neck Neck: normal visual inspection and trachea midline Chest Chest palpation & inspection: normal inspection of the chest Resp Effort & Inspection: normal respiratory effort, able to speak in complete sentences and symmetric chest movement Cardio Rate: regular rate GI Inspection: normal to inspection Palpation: soft and nontender General: No CVA tenderness Skin General: no rashes or lesions noted Neuro General: patient alert, patient awake, patient oriented x3 and CN's II-XI intactbilaterally Extrem General: normal to inspection Psych Appearance: grossly normal and well kempt Mental Status: mental status grossly normal Office Procedures Post Void Residual Post Void Residual: 70 cc Results POC UA Auto w/o Microscopy Office Urine Color Last Edit by Enid Romano on 10/19/24 10:51 Office Urine Clarity Last Edit by Enid Romano on 10/19/24 10:51 Office Urine Glucose Negative Last Edit by Enid Romano on 10/19/24 10:5 1 Office Urine Ketones Negative Last Edit by Enid Romano on 10/19/24 10:5 1 Office Urine Bilirubin Negative Last Edit by Enid Romano on 10/19/24 10 :51 Office Urine Urobilinogen Negative Last Edit by Enid Romano on 10/19/24 10:51 Off Ur Spec [place] 1.010 Last Edit by Enid Romano on 10/19/24 10:51 Office Urine pH 5 Last Edit by Enid Romano on 10/19/24 10:51 Office Urine Protein Negative Last Edit by Enid Romano on 10/19/24 10:5 1 Office Urine Blood Negative Last Edit by Enid Romano on 10/19/24 10:51 Office Urine Blood Hemolyzed Negative Last Edit by Enid Romano on 10/19 10:51 Office Urine Nitrate Negative Last Edit by Enid Romano on 10/19/24 10:5 1 Off Ur Leukocytes Negatve Last Edit by Enid Romano on 10/19/24 10:51 Coding Level of Care Code Off vis,est,level 4 Diagnoses Overactive bladder N32.81 Mixed incontinence N39.46 Post-menopausal atrophic vaginitis N95.2 Assessment and Plan Assessment and Plan (1) Overactive bladder: Status: Acute (2) Mixed incontinence: Status: Acute (3) Post-menopausal atrophic vaginitis: Status: Acute Orders: Orders POC UA Auto w/o Microscopy Today N32.81 - Overactive bladder PVR Today N39.46 - Mixed incontinence Medications: Changed From vibegron (Gemtesa) 75 mg PO DAILY To Gemtesa (vibegron) 75 mg PO DAILY 90 days 90 tabs 3RF NS Patient Instructions: Continue level 1 bladder management Continue Gemtesa daily with prescription refill today Plan Details Follow Up: 12 Months (med f/u) Clinical Quality Measures Falls Risk Screening/Assistive Devices Have you fallen in the past year?: No 10/19/24 6733 <Electronically signed by Aniyah Sharp MD> Date _ Aniyah Sharp MD Cosigner Signature: Date (if applicable) CC: ~ [employer] Work Phone: [phone] Evaluation note* Diagnosis Onset Date Resolution Status Admit Date Health care maintenance acute J timmy 2024 12:57pm Asthma chronic September 23 12:57pm Essential hypertension chronic Ju ly 2024 12:57pm Mixed hyperlipidemia chronic September 23, 2024 12:57pm Osteoarthritis chronic September 23, 2024 12:57pm Pruritus chronic September 23 12:57pm Rheumatoid arthritis chronic September 23, 2024 12:57pm Mixed incontinence acute October 19, 2024 10:34am Overactive bladder acute October 19, 2024 10:34am Post-menopausal atrophic vaginitis acute October 19, 2024 10:34am [facility] Work Phone: 1(627) 174-761303-05-2025 Evaluation note* Diagnosis Onset Date Resolution Status Admit Date Asthma chronic May 19 9:31am CKD (chronic kidney disease) , stage III chronic May 19, 2024 9:31am Dyslipidemia chronic May 19 025 9:31am Essential hypertension chronic Ma [facility] 2024 9:31am Upper back pain on right side chroni c May 19, 2024 9:31am [facility] Work Phone: 1(866) 162-499412-04-2024 Evaluation note* Diagnosis Onset Date Resolution Status Admit Date Flu vaccine need acute February 18, 2024 9:42am Asthma chronic February 18, 2024 9:42am Essential hypertension chronic De cem2023 9:42am Lumbar radiculopathy chronic [facility] 2023 9:42am Paroxysmal cough chronic February 18, 2024 9:42am Asthma chronic May 19 9:31am CKD (chronic kidney disease) , stage III chronic May 19, 2024 9:31am Dyslipidemia chronic May 19 025 9:31am Essential hypertension chronic [facility] 2024 9:31am Upper back pain on right side chroni c May 19, 2024 9:31am [facility] Work Phone: 1(775) 504-806703-13-2024 NoteHNO ID: [id number] Author: KIRAN GIFFORD MD Service: ? Author [...] all of its relevant components. Kiran Gifford, [facility]03-13-2024 History of Present illness Narrative* Kiran Gifford [...] components. Kiran Gifford MD [facility]24 NoteHNO ID: [id number] Author: ARIC GUERRIER MD Service: ? Author [...] 105/70 Pulse 60 Temp 97.1 Ht 5' 4.665" (1.64m) Wt 269 lb 8 oz (122.2kg) SpO2 96% BMI 45.34 kg/(m2). GENERAL APPEARANCE: Well appearing, in no acute distress, alert and oriented x3, well-hydrated, well nourished. I spent a total of 45 minute (more content not included)...[facility]02-09-2024 History of Present illness Narrative* Aric Guerrier [...] 105/70 Pulse 60 Temp 97.1 Ht 5' 4.665" (1.64m) Wt 269 lb 8 oz (122.2kg) SpO2 96% BMI 45.34 kg/(m^2). GENERAL APPEARANCE: Well appearing, in no acute distress, alert and oriented x3, well-hydrated, well nourished. I spent a total of 45 minutes on the date of the service which included preparing to see the patient, [id number] patient care, completing clinical documentation, obtaining and/or reviewing separately obtained history, counseling and educating the patient/family/caregiver, communicating with other HCPs (not separately reported), independently interpreting results (not separately reported), and communicating results to the patient/family/caregiver. ' Electronically Signed: Aric Guerrier MD April 25, 2023 10:39 AM documented in [facility]-24-2024 Discharge summary Author Rickie Hale [facility] April 09, 2023 10:12am Note Date/Time April 09, 2023 8 :53am [facility] Medical Records Department [address] [place] [address] Discharge Summary 04/09/23 0853 MR#: [id number] Acct: [id number] Name: ANH EWING Rep #:[id number] : 1955 68 From: Rickie Hale MD PCP: Dr. Moni Velásquez MD Status:A DM IN Location: [place] [address] Providers Date of Admission: 04/06/23 Date of [...] Rheumatoid arthritis ? Patient is on leflunomide 7./ obesity with BMI of 47 ? Complicating [...] % (Auto) 69.4, Lymph % (Auto)18.2 L, [place] % (Auto) 10.4 H, Eos % (Auto) [...] given w/in hospital stay or rx'd at id?: No Pt receive overlap for 5 days?: [...] Self Care Charges/Coding Visit Charges Inpatient E&M: 91425 Disch Hosp >30min 04/09/23 0903 <Electronically signed [...] MD; Dr. Moni Velásquez MD ~* Signed [facility] Work Phone: 1(309) 789-571901-24-2024 Consult note Author Georgina Vasquez [facility] April 09, 2023 9:57am Note Date/Time April 09, 2023 9 :55am [facility] Medical Records Department [address] [place] [address] Counseling Note - Pharmacy 04/09/23951 MR#: [id number] Acct: [id number] Name: ANH EWING Rep #:[id number] : 1955 68 From: Georgina Vasquez PCP: Dr. Moni Velásquez MD Status:A DM IN Y Location: [place] [id number] Pharmacy [facility] has performed discharge medication reconciliation and counseling for this patient. Patient would like to have medications delivered. MINI KOTHARI will request delivery when she calls for [employer]. 1. APIXABAN 10MG PO BID X 7 [...] signed by Georgina Vasquez> Date _ Georgina Vasquez Cosigner Signature (if applicable): Date CC: ~ Signed [facility] Work Phone: 1(975) 507-221001-24-2024 Progress note Author Rickie Hale [facility] April 09, 2023 8:52am Note Date/Time April 09, 2023 8 :16am [facility] Medical Records Department [address] [place] [address] Progress Note - Hospitalist 04/09/23 0816 MR#: [id number] Acct: [id number] Name: ANH EWING Rep #:[id number] : 1955 68 From: Rickie Hale MD PCP: Dr. Moni Velásquez MD Status:A DM IN Location: [place] [address] Reason for Visit Reason for Visit: Diagnoses [...] documentation, 35minutes Charges/Coding Visit Charges Inpatient E&M: 96769 Subs Hosp L2 04/09/23 0852 <Electronically signed by Rickie Hale MD> Cosigner Signature (if applicable): CC: ~ Signed [facility] Work Phone: 1(939) 375-153901-23-2024 Progress note Author Rickie Hale [facility] April 08, 2023 11:46am Note Date/Time April 08, 2023 7 :55am [facility] Medical Records Department [address] [place] [address] Progress Note - Hospitalist 04/08/23 0754 MR#: [id number] Acct: [id number] Name: ANH EWING Rep #:[id number] : 1955 68 From: Rickie Hale MD PCP: Dr. Moni Velásquez MD Status:A DM IN Location: [place] [address] Reason for Visit Reason for Visit: Diagnoses [...] (Auto) 70.1 H, Lymph % (Auto)16.9 L, [place] % (Auto) 11.7 H, Eos % (Auto) [...] 50 Minutes Charges/Coding Visit Charges Inpatient E&M: 43295 Subs Hosp L3 04/08/23 1146 <Electronically signed by Rickie Hale MD> Cosigner Signature (if applicable): CC: ~ Signed [facility] Work Phone: 1(390) 526-855601-22-2024 Progress note Author Rickie Hale [facility] April 07, 2023 11:10am Note Date/Time April 07, 2023 1 1:10am [facility] Medical Records Department [address] [place] [address] Progress Note - Hospitalist 04/07/23 1107 MR#: [id number] Acct: [id number] Name: ANH EWING Rep #:[id number] : 1955 68 From: Rickie Hale MD PCP: Dr. Moni Velásquez MD Status:A DM IN Location: [place] [address] Reason for Visit Reason for Visit: Diagnoses [...] 79.4 H, Lymph % (Auto) 8.1 L, [place] % (Auto) 11.3 H, Eos % (Auto) 0.0, Baso % (Auto) 0.2, Absolute Neuts(auto) 12.7 H, Absolute Lymphs (auto) 1.30, Nucleated RBC % 0, Diff Path Review May foll, Toxic Granulation 1+, APTT 52.3 H, Sodium 137, Potassium 3.7, [id number], Carbon Dioxide 26.0, Anion Gap 7, BUN [...] 50 Minutes Charges/Coding Visit Charges Inpatient E&M: 91552 Subs Hosp L3 04/07/23 1110 <Electronically signed by Rickie Hale MD> Cosigner Signature (if applicable): CC: ~ Signed [facility] Work Phone: 1([phone]) 606-683501-21-2024 Discharge summary Author Arlene Acevedo [facility] April 06, 2023 3:38pm Note Date/Time April 06, 2023 9 :44am [facility] Medical Records Department [address] [place] [address] Emergency Department Summary 04/06/23 MR#: [id number] Acct: [id number] Name: ANH EWING Rep #:[id number] : 1955 68 From: Arlene Acevedo DO PCP: Dr. Moni Velásquez MD Status:A DM IN Location: [address] History of Present Illness Chief Complaint: Shortness of Breath Detail of Chief Complaint: Shortness of breath Informant: patient Narrative Narrative: Patient presents to the emergency department complaint of shortness of breath has been going on for about 5 days. Patient had a visit with regional operations manager and seeing them for the first time [...] history of CHF. Patient denies chest pain. [facility] Medical History Adrenal nodule Anemia Arthritis Asthma [...] 78.5 H Lymph % (Auto) 9.9 L [place] % (Auto) 10.8 H Eos % (Auto) 0.0 Baso % (Auto) 0.3 Absolute Neuts (auto) 11.7 H Absolute Lymphs (auto) 1.48 Nucleated RBC % 0 Differential Comment SCANNED Diff Path Review July PT 16.9 H INR 1.4 APTT 35.6 [...] Pulmonary emboli Disposition Disposition: Acute Care Hospital [facility] Discharge Date/Time: 04/06/23 11:50 What to do if you have Problems For any increased pain, shortness of breath, bleeding, nausea or vomiting, chestpain, or any unexpected problems, contact your Primary Care Provider. Call [facility] ([phone]) or report to the closest Emergency Room. Call 911 if necessary. 04/06/23 1538 <Electronically signed by Arlene Acevedo DO> Cosigner Signature (if applicable): CC: Dr. Moni Velásquez MD ~ Signed [facility] Work Phone: 1(679) 429-283301-21-2024 History and physical note Author Thor Alfred [facility] April 06, 2023 1:46pm Note Date/Time April 06, 2023 1 1:15am [facility] Medical Records Department [address] [place] [address] H&P Exam - Hospitalist 04/06/23 1112 MR#: [id number] Acct: [id number] Name: ANH EWING Rep #:[id number] : 1955 68 From: Thor farias MD PCP: Dr. Moni Velásquez MD Status:A DM IN Location: [place] [id number] HPI - General General Date of Admission: [...] leukocytosis which can occur with large PEs. [facility] Medical History Adrenal nodule Anemia Arthritis Asthma [...] (Auto) 78.5 H, Lymph % (Auto)9.9 L, [place] % (Auto) 10.8 H, Eos % (Auto) 0.0, Baso % (Auto) 0.3, Absolute Neuts(auto) 11.7 H, Absolute Lymphs (auto) 1.48, Nucleated RBC % 0, Differential Comment SCANNED, Diff Path Review July foll, PT 16.9 H, INR 1.4, APTT 35.6, [...] 11:01 EST Reading Location ID and State: [facility] / [place] Tel , Service support , Assessment & [...] with colleagues Charges/Coding Visit Charges Inpatient E&M: 16821 Init Hosp L3 04/06/23 1346 <Electronically signed by Thor Alfred MD> Cosigner Signature (if applicable): CC: Dr. Moni Velásquez MD; Dr. Thor Alfred MD~ Signed [facility] Work Phone: 1([phone]) 138-241701-17-2024 NoteHNO ID: [id number] Author: KIRAN GIFFORD MD Service: ? Author [...] all of its relevant components. Kiran Gifford, [facility]12-27-2023 NoteHNO ID: [id number] Author: Kiran Gifford MD Service: ? Author [...] all of its relevant components. Kiran Gifford, [facility]12-20-2023 NoteHNO ID: [id number] Author: Kiran Gifford MD Service: ? Author [...] all of its relevant components. Kiran Gifford, [facility]12-20-2023 Instructions* Patient Instructions* Kiran Gifford MD - 03/05/2023 11:12 AM EST -prednisolone 4x daily right eye -vigamox four times a day right eye -lie flat on back every two hours -precautions documented in [facility] encounterReg[facility] Hospital Company12-20-2023 History of Present illness Narrative* Kiran Gifford [...] components. Kiran Gifford MD [facility]-2023 NoteHNO ID: [id number] Author: Kiran Gifford MD Service: ? Author [...] all of its relevant components. Kiran Gifford, [facility]12-16-2023 Instructions* Patient Instructions* Kiran Gifford MD - 03/01/2023 1:32 PM EST Images from the original note were not included. documented in this encounterRegency Hospital Company12-16-2023 History of Present illness Narrative* Kiran Gifford [...] components. Kiran Gifford MD documented in this encounterRegency Hospital Company12-15-2023 History of Past illness Narrative* Problem Noted Date Diagnosed Date Resolved Date Corneal edema, secondary, right 02/28/2023 02/28/2023 documented as of this encounter (statuses as of 03/01/2023) [facility] History of Past illness Narrative* Problem Noted Date Diagnosed Date Resolved Date Corneal edema, secondary, right 02/28/2023 02/28/2023 documented as of this encounter (statuses as of 03/06/2023) [facility] History of Past illness Narrative* Problem Noted Date Diagnosed Date Resolved Date Corneal edema, secondary, right 02/28/2023 02/28/2023 documented as of this encounter (statuses as of 04/25/2023) [place] [address]-2023 History of Past illness Narrative* Problem Noted Date Diagnosed Date Resolved Date Corneal edema, secondary, right 02/28/2023 02/28/2023 documented as of this encounter (statuses as of 05/28/2023) [facility]11-08-2023 NoteHNO ID: [id number] Author: Kiran Gifford MD Service: ? Author [...] all of its relevant components. Kiran Gifford, [facility]11-08-2023 Instructions* Patient Instructions* Kiran Gifford MD - 01/22/2023 9:36 AM EST -Tre White (surgical scheduling): [phone] documented in this encounterRegency Hospital Company11-08-2023 History of Present illness Narrative* Kiran Gifford [...] components. Kiran Gifford MD documented in this encounterRegency Hospital Company11-06-2023 Miscellaneous Notes* Telephone Encounter - Cherise West [...] water excretion from the body, but unlikley wswelarisa. She has a focal descemet ddtachment that [...] which she is under the care of [facility] to control her hypertension. Patient states she started these medications shortly before she started to experience the eye pain in the right eye. Patient spoke with the [facility] and they advised that she [...] asking for a phone call back at [phone]. Review and advise. documented in this encounterRegency Hospital Company10-18-2023 NoteHNO ID: [id number] Author: Kiran Gifford MD Service: ? Author [...] all of its relevant components. Kiran Gifford, [facility]10-18-2023 History of Present illness Narrative* [...] components. Kiran Gifford MD documented in this encounterRegency Hospital Company10-13-2023 Miscellaneous Notes* Telephone Encounter - Abbi Cole - 12/27/2022 10:59 AM EDT Ptient called wanting to let you know she is having carpel tunnel surgery on 01/07 and didn't know if it would affect her eyes.Abbi Dahl documented in this encounterRegency Hospital Company09-27-2023 NoteHNO ID: [id number] Author: Kiran Gifford MD Service: ? Author [...] all of its relevant components. Kiran Gifford, [facility]09-20-2023 NoteHNO ID: [id number] Author: Kiran Gifford MD Service: ? Author [...] Kiran Gifford MD December 04, 2022 9:09 [facility]09-18-2023 Procedure note [facility]09-08-2023 Miscellaneous Notes* Telephone Encounter - Luciana Valencia OA - 11/22/2022 3:45 PM EDT Spoke with Randee brar at the [facility] regarding this patient's referral to [...] MARRY Nelson [facility] Diagnosis Onset Date Resolution Status Health care maintenance acut e Osteoarthritis chronic Osteoarthritis chronic Bradycardia acute Essential hypertension chron ic Mixed hyperlipidemia [facility] Work Phone: Evaluation note* Diagnosis Onset Date Resolution Status Bradycardia acute Essential hypertension chron ic Mixed hyperlipidemia [facility] Work Phone: evaluation noteNo assessment information available [facility] Work Phone: evaluation note* Diagnosis Onset Date Resolution Status Bradycardia acute Essential hypertension chron ic Mixed hyperlipidemia chronic Carpal tunnel syndrome, right chronic Essential hypertension chron ic GERD (gastroesophageal reflux disease) chronic Mixed hyperlipidemia chronic Bradycardia acute Essential hypertension chron ic Mixed hyperlipidemia [facility] Work Phone: evaluation note* Diagnosis Corneal edema, secondary, right- Primary Corneal scar, right eye Corneal opacity, unspecified Pseudophakia Lens replaced by other means Corneal edema, secondary, right [facility] encounter [facility]* Diagnosis Corneal edema, secondary, right- Primary Corneal scar, right eye Corneal opacity, unspecified Pseudophakia Lens replaced by other means Corneal edema, secondary, right [facility]* Diagnosis Onset Date Resolution Status Carpal tunnel syndrome, right chronic Essential hypertension chron ic GERD (gastroesophageal reflux disease) chronic Mixed hyperlipidemia chronic Bradycardia acute Essential hypertension chron ic Mixed hyperlipidemia chronic [facility] acut e Preoperative evaluation to r ule out surgical contraindication acute Carpal tunnel syndrome, right chronic CKD (chronic kidney disease), stage III chronic Essential hypertension chron ic Mixed hyperlipidemia [facility] Work Phone: Evaluation note* Diagnosis Status post corneal transplant- Primary Cornea replaced by transplant documented in this encounter [facility] note* Diagnosis Onset Date Resolution Status Health [...] acute Pulmonary emboli acute Respiratory failure acute [facility] Work Phone: Evaluation note* Diagnosis 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 documented in this encounter [facility]* Diagnosis Onset Date Resolution Status Health [...] Pulmonary emboli acute Essential hypertension chron ic [facility] Work Phone: Evaluation note* Diagnosis Onset [...] Pulmonary emboli acute Essential hypertension chron ic [facility] Work Phone: Evaluation note* Diagnosis Onset [...] acute Essential hypertension chron ic Itching acute [facility] Work Phone: Evaluation note* Diagnosis Status post 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, right eye Corneal opacity, unspecified Pseudophakia Lens replaced by other means documented in this encounter [facility] Discharge instructionsWBl[facility] Work Phone: Hospital Discharge instructionsWBl[facility] Work Phone: Reason for referral (narrative)No reason for referral information availableWBlanchard Valley [facility] Work Phone: Summary Purpose Family History No Family History Records Found Relationship Condition Age at Onset Recorded Date/T luis brother Sudden cardiac 50 mother Cardiac disease Unknown father Cardiac disease Unknown Advance Directives No Advanced Directives Records Found Advance Directive Response Recorded Date/ Time Living Will Yes December 27 10:49pm Power of Materials Specialist Yes December 28, 2019 10:49pm Advance Directive Response Recorded Date/ Time Living Will Yes December 27 9:49pm Power of Materials Specialist Yes December 28, 2019 9:49pm Advance Directive Response Recorded Date/ Time Name of Medical Power of Materials Specialist spouse April 06, 2023 9:51am Living Will Yes April 06 9:51am Power of Materials Specialist Yes April 06, 2023 9:51am Advance Directive Response Recorded Date/ Time Name of Medical Power of Materials Specialist Felipe Gildardo April 06, 2023 12:20pm Living Will Yes April 06 12:20pm Power of Materials Specialist Yes April 06, 2023 12:20pm Advance Directive Response Recorded Date/ Time Living Will Yes April 06 1:20pm Do you have a Healthcare Power of Materials Specialist? Yes April 06, 2023 1:20pm Chief Complaint [...] COPY PCP Reason for Visit [facility] Osteoarthritis Osteoarthritis Bradycardia Essential hypertension Mixed hyperlipidemia [...] 2 WK BP CK WITH NURSE PER MARINA Hydralazine increased L.Khushbu EORDERS-CC PCP BP check after adding HCTZ Ej.Lortheodore Reason for Visit Bradycardia Essential hypertension Mixed hyperlipidemia Chief Complaint 6 M FU 2 WK BP CK WITH NURSE PER MARINA Hydralazine increased L.Lorson EORDERS-CC PCP BP check after adding HCTZ L.Lorson S/O- PAIN-COPY PCP Reason for Visit Bradycardia Essential hypertension Mixed hyperlipidemia Chief Complaint EORDERS-CC PCP BP check after adding HCTZ L.Lorson S/O- PAIN-COPY PCP AHA BP monitor checkup LAngelson MED CHECK 8 wk fu COPY PCP [...] M FU/SURGERY CLEARANCE 6 M FU EORDERS HANH PE Reason for Visit [facility] Preoperative evaluation to rule out [...] SADDLE PE SADDLE PE [facility] Preoperative evaluation to rule out surgical contraindication [...] SADDLE PE SADDLE PE Reason [facility] Preoperative evaluation to rule out surgical contraindication [...] SADDLE PE SADDLE PE SADDLE PE ACUTE [facility] FU NEED ORDER/TIMED DRAW BETWEEN 8A-9A 2 WK FU DYSPNEA DYSPNEA Reason [facility] Visit [facility] Preoperative evaluation to rule out surgical contraindication [...] SADDLE PE SADDLE PE SADDLE PE ACUTE [facility] FU NEED ORDER/TIMED DRAW BETWEEN 8A-9A 2 WK FU DYSPNEA DYSPNEA Reason [facility] Preoperative evaluation to rule out surgical contraindication [...] SADDLE PE SADDLE PE SADDLE PE ACUTE [facility] FU NEED ORDER/TIMED DRAW BETWEEN 8A-9A 2 WK FU DYSPNEA DYSPNEA itching on hands and face,hairline Other specified disorders of adrenal gland Reason for Visit [facility] Preoperative evaluation to rule out surgical contraindication [...] hypertension Itching Chief Complaint EORDER FROM DR REGAN Hernandez 3 M FU/SURGERY CLEARANCE 6 M FU EORDERS SADDLE PE SADDLE PE SADDLE PE SADDLE PE SADDLE PE ACUTE [facility] FU NEED ORDER/TIMED DRAW BETWEEN 8A-9A 2 WK FU DYSPNEA DYSPNEA itching on hands and face,hairline Other specified disorders of adrenal gland PAIN- COPY PCP Reason for Visit [facility] Preoperative evaluation to rule out surgical contraindication [...] M FU September 23, 2024 12:5 7pm Chief Complaint Admit Date 4 M FU September 23, 2024 12:5 7pm 2 ORDERING NAVEED LEON October 15, 2024 7:44am 12MO MED F/U October 19, 2024 10: 34am Reason for Visit Admit Date Health care maintenance September 23, 2024 12:57pm Asthma September 23, 2024 12:5 7pm Essential hypertension September 23, 2024 1 2:57pm Mixed hyperlipidemia September 23, 2024 12: 57pm Osteoarthritis September 23, 2024 12:5 7pm Pruritus September 23, 2024 12:5 7pm Rheumatoid arthritis September 23, 2024 12: 57pm Mixed incontinence October 19, 2024 10: 34am Overactive bladder October 19, 2024 10: 34am Post-menopausal atrophic vaginitis Augus 2024 10:34am Chief Complaint Admit Date 4 M FU September 23, 2024 12:5 7pm 2 ORDERING NAVEED LEON October 15, 2024 7:44am 12MO MED F/U October 19, 2024 10: 34am 3 M FU December 22, 2024 7: 56am Additional Source Comments INFORMATION SOURCE (unrecogn ized section and content) DATE CREATED AUTHOR 09/03/2017 [facility] DATE CREATED AUTHOR AUTHOR'S ORGANIZ ATION 09/08/2017 [facility] jak Briscoe DATE CREATED AUTHOR AUTHOR'S ORGANIZ ATION 05/29/2023 [facility] DATE CREATED AUTHOR AUTHOR'S ORGANIZ ATION 12/24/2024 [facility] Goals (unrecognized section and content) Goals [...] Provider, Refer ring Provider Active Richard Garcia [employer] Attending Provider Active Team Status: Inactive Member Role Status Dates Dr. Moni Velásquez MD Primary Care Provider Active Richard Garcia [employer] Attending Provider, Referring P rovider Active Chemical Manager Relationship Specialty Start Date End Date Moni Velásquez MD [address] [place] [address] PCP - General Internal Medicine 07/04/20 Team [...] P rovider, Attending Provider, Referring Provider Active Chemical Manager Relationship Specialty Start Date End Date Moni Velásquez MD [address] [place] [address] PCP - General Internal Medicine 07/04/20 Chemical Manager Relationship Specialty Start Date End Date Moni Velásquez MD [address] [place] [address] PCP - General Internal Medicine 07/04/20 Chemical Manager Relationship Specialty Start Date End Date Moni Velásquez MD [address] [place] [address] PCP - General Internal Medicine 07/04/20 Team Status: Inactive Member Role Status Dates Dr. Moni Velásquez MD Primary Care Provider, Other Provider Active Dr. Andreina Cruz MD Attending Provider, Referring Provider Active Chemical Manager Relationship Specialty Start Date End Date Moni Velásquez MD [address] [place] [phone] PCP - General Internal Medicine 07/04/20 Chemical Manager Relationship Specialty Start Date End Date Moni Velásquez MD [address] [facility] [address] [place] [phone] PCP - General Internal Medicine 07/04/20 Team Status: Inactive Member Role Status Dates Dr. Moni Velásquez MD Primary Care Provider, Refer ring Provider Active Dr. Mati Mccnan MD Attending Provider Active Team Status: Active [...] Dr. Rickie Hale MD Attending Provider Active Chemical Manager Relationship Specialty Start Date End Date Moni Velásquez MD [address] [place] [phone] PCP - General Internal Medicine 07/04/20 Team Status: Inactive Member Role Status Dates Dr. Moni Velásquez MD Primary Care Provider, Refer ring Provider Active Freddie Fraire NP-C Attending Provider Active Team Status: Active Member [...] Care Provider Active Freddie Fraire NP-C Attending Provider Active Team Status: Active Member Role Status Dates Dr. Moni Velásquez MD Primary Care Provider Active Freddie Fraire NP-Bandar Attending Provider Active Team Status: Active Member Role Status Dates Dr. Mnoi Velásquez MD Primary Care Provider Active Dr. Andreina Cruz MD Attending Provider, Referring Provider Active Chemical Manager Relationship Specialty Start Date End Date Moni Velásquez MD [address] [place] [address] PCP - General Internal Medicine 07/04/20 Team [...] September 23, 2024 End: September 23, 2024 Team Status: Inactive Member Role/Relationship Status [...] MD Primary Care Provider Active Start: September 14, 2024 Dr. Aniyah Sharp MD Attending Provider Active Start: September 14, 2024 Team Status: Active Member Role/Relationship Status Dates Dr. Moni Velásquez MD Primary Care Provider Active Start: October 15, 2024 Dr. Moni Velásquez MD Referring Provider Active Start: October 15, 2024 Dr. Andreina Cruz MD Attending Provider Active Start: October 15, 2024 Team Status: Inactive Member Role/Relationship Status Dates Dr. Moni Velásquez MD Primary Care Provider Active Start: October 19, 2024 End: October 19, 2024 Dr. Moni Velásquez MD Referring Provider Active Start: October 19, 2024 End: October 19, 2024 Dr. Aniyah Sharp MD Attending Provider Active Start: October 19, 2024 End: October 19, 2024 Team Status: Inactive Member Role/Relationship Status Dates Dr. Moni Velásquez MD Primary Care Provider Active Start: October 15, 2024 End: October 15, 2024 Dr. Moni Velásqeuz MD Referring Provider Active Start: October 15, 2024 End: October 15, 2024 Dr. Andreina Cruz MD Attending Provider Active Start: October 15, 2024 End: October 15, 2024 Team Status: Active Member Role/Relationship Status Dates Dr. Moni Velásquez MD Primary care physician Activ e Team Status: Inactive Member Role/Relationship Status Dates Dr. Moni Velásquez MD Primary care physician Activ e Start: September 14, 2024 Dr. Aniyah Sharp MD Attending physician Active Start: September 14, 2024 Team Status: Inactive Member Role/Relationship Status Dates Dr. Moni Velásquez MD Primary care physician Activ e Start: September 23, 2024 End: September 23, 2024 Dr. Moni Velásquez MD Attending physician Active Start: September 23, 2024 End: September 23, 2024 Dr. Moni Velásquez MD Referring Provider Active Start: September 23, 2024 End: September 23, 2024 Team Status: Inactive Member Role/Relationship Status Dates Dr. Moni Velásquez MD Primary care physician Activ e Start: October 15, 2024 End: October 15, 2024 Dr. Moni Velásquez MD Referring Provider Active Start: October 15, 2024 End: October 15, 2024 Dr. Andreina Cruz MD Attending physician Active Start: October 15, 2024 End: October 15, 2024 Team Status: Inactive Member Role/Relationship Status Dates Dr. Moni Velásquez MD Primary care physician Activ e Start: October 19, 2024 End: October 19, 2024 Dr. Moni Velásquez MD Referring Provider Active Start: October 19, 2024 End: October 19, 2024 Dr. Aniyah Sharp MD Attending physician Active Start: October 19, 2024 End: October 19, 2024 Team Status: Inactive Member Role/Relationship Status Dates Dr. Moni Velásquez MD Primary care physician Activ e Start: December 22, 2024 End: December 22, 2024 Dr. Moni Velásquez MD Attending physician Active Start: December 22, 2024 End: December 22, 2024 Dr. Moni Velásquez MD Referring Provider Active Start: December 22, 2024 End: December 22, 2024 Source Comments (unrecognize d section and content) In the event this informatio n is protected by the Federal Confidentiality of Alcohol and Drug Abuse Patient Records regulations: The Federal rules restrict any use of the information to criminally investigate or prosecute any alcohol or drug abuse patient.[facility] CompanyIn the event this information is protected by the Federal Confidentiality of Alcohol and Drug Abuse Patient Records regulations: The Federal rules restrict any use of the information to criminally investigate or prosecute any alcohol or drug abuse patient.[facility] CompanyIn the event this information is protected by the Federal Confidentiality of Alcohol and Drug Abuse Patient Records regulations: The Federal rules restrict any use of the information to criminally investigate or prosecute any alcohol or drug abuse patient.[facility] CompanyIn the event this information is protected by the Federal Confidentiality of Alcohol and Drug Abuse Patient Records regulations: The Federal rules restrict any use of the information to criminally investigate or prosecute any alcohol or drug abuse patient.[facility] CompanyIn the event this information is protected by the Federal Confidentiality of Alcohol and Drug Abuse Patient Records regulations: The Federal rules restrict any use of the information to criminally investigate or prosecute any alcohol or drug abuse patient.[facility] CompanyIn the event this information is protected by the Federal Confidentiality of Alcohol and Drug Abuse Patient Records regulations: The Federal rules restrict any use of the information to criminally investigate or prosecute any alcohol or drug abuse patient.[facility] CompanyIn the event this information is protected by the Federal Confidentiality of Alcohol and Drug Abuse Patient Records regulations: The Federal rules restrict any use of the information to criminally investigate or prosecute any alcohol or drug abuse patient.[facility] CompanyIn the event this information is protected by the Federal Confidentiality of Alcohol and Drug Abuse Patient Records regulations: The Federal rules restrict any use of the information to criminally investigate or prosecute any alcohol or drug abuse patient.[facility] CompanyIn the event this information is protected by the Federal Confidentiality of Alcohol and Drug Abuse Patient Records regulations: The Federal rules restrict any use of the information to criminally investigate or prosecute any alcohol or drug abuse patient.[facility] Reason for Visit (unrecogniz ed section and [...] PRIMARY CLINICAL RECORDS. [facility] [employer] [facility]. provides no warranty or guarantee of the accuracy or completeness of information in this document.
[2025-01-03 10:33] LABS: Hematocrit 40.0 % (37-47); Hemoglobin 12.6 g/dL (12.0-15.0); Immature Granulocytes Count 0.020 X10^3/uL (0.0-0.0); Mean Corp Hgb Conc 31.5 g/dL (32-36); Mean Corpuscular Volume 91.5 fL (81-99); Mean Platelet Vol. 9.7 fl (6.2-12.0); NRBC Flagged by Analyzer 0 % (0-5); Platelet Count 208 K/mm3 (150-450); RBC Distribution Width CV 15.1 % (11.6-14.6); RBC Distribution Width SD 50.8 fl (35.1-43.9); Red Blood Count 4.37 M/mm3 (4.2-5.4); White Blood Count 5.9 K/mm3 (4.4-11.0)
[2025-01-03 10:50] LABS: AST(SGOT) 24 U/L (<=31); Alanine Aminotransfer ALT/SGPT 17 U/L (<=34); Albumin, Serum 3.9 g/dL (3.4-4.8); Alkaline Phosphatase 99 U/L (35-104); Anion Gap 10 (5-15); BUN 18 mg/dL (4-19); BUN/Creat Ratio 15.5 RATIO (10-20); Calcium,Total 9.9 mg/dL (7.6-11.0); Carbon Dioxide 26.5 mmol/L (21.0-32.0); Chloride 105 mmol/L (98-108); Globulin 2.8 g/dL (2.2-4.2); Glucose 108 mg/dL (70-99); Potassium 3.9 mmol/L (3.3-5.1)
== END | disposition home or self-care (01) ==
LOC: MTLAB 07:06
PROVIDERS: PCP Internal Medicine; Referring Provider Internal Medicine Rheumatology; Visit Provider Internal Medicine Rheumatology
DX: M05.70 Rheumatoid arthritis with rheumatoid factor of unspecified site without organ or systems involvement (principal); R76.89 Other specified abnormal immunological findings in serum; Z79.899 Other long term (current) drug therapy
CPT/HCPCS: 36415; 80053; 85025